=== PATIENT | male | born 1960 | race Caucasian/White ===

== ENCOUNTER 2016-05-12 14:42 | Emergency (ER) | payer MEDICARE, MEDICAID ==
[~2016-05-12] VITALS: Ht 147.3 cm; Wt 59.0 kg
[~2016-05-12 14:42] MED LIST: /ALEN7SOL OR; ASPI81TA45 OR; ASPI81TA85 PO; ATARAX OR; CALC600T57 PO; CALCCHW12 OR; CLAR10CA3 PO; CLAR5CHW OR; DILA100C OR; DILA100C PO; DITR5TAB PO; FORT600S SC; HYDR25T PO; KEPP1TAB2 PO; KEPPRA PO; MULTCAP12 PO; MULTIVIT PO; OXYB5TAB4 OR; PHEN30TA2 OR; PHEN32.4 PO; PHEN50CH PO; SENN8.6T63 PO; SENO8.6T5 OR; VITA200016 PO
[2016-05-12] MEDS ORDERED: OMEP40CA2 PO (15:10)
[2016-05-12] MEDS ORDERED: TRIA1CR TOP (15:10)
[2016-05-12 16:32] LABS: BASO % 0.3 % (0.0-1.0); EOS # 0.1 K/mm3 (0.0-0.50); EOS % 1.4 % (0.0-3.0); LARGE UNSTAINED CELL # 0.2 K/mm3 (0.0-0.4); LARGE UNSTAINED CELL % 2.7 % (0.0-4.0); LYMPH # 1.8 K/mm3 (1.5-4.5); LYMPH % 24.5 % (24.0-44.0); MEAN CORPUSCULAR HEMOGLOBIN 30.2 pg (27.0-33.0); MEAN CORPUSCULAR HGB CONC 33.5 g/dl (32.0-36.5); MONO # 0.8 K/mm3 (0.0-0.8); MONO % 10.3 % (0.0-5.0); NEUTROPHILS # 4.4 K/mm3 (1.8-7.7); NEUTROPHILS % 60.8 % (36.0-66.0); PLATELET COUNT, AUTOMATED 217 k/mm3 (150-450); RED CELL DISTRIBUTION WIDTH 12.7 % (11.5-14.5); WHITE BLOOD COUNT 7.3 K/mm3 (4.0-10.0)
[2016-05-12 16:52] LABS: ANION GAP 6 MEQ/L (8-16); BLOOD UREA NITROGEN 15 MG/DL (7-18); CALCIUM LEVEL 8.3 MG/DL (8.5-10.1); CARBON DIOXIDE LEVEL 30 MEQ/L (21-32); CHLORIDE LEVEL 103 MEQ/L (98-107); CREATININE FOR GFR 0.63 MG/DL (0.70-1.30); GLOMERULAR FILTRATION RATE > 60.0 (>56); GLUCOSE, FASTING 92 MG/DL (70-105); PHENOBARBITAL LEVEL 25.9 UG/ML (15.0-40.0); POTASSIUM SERUM 4.2 MEQ/L (3.5-5.1); SODIUM LEVEL 139 MEQ/L (136-145)
[2016-05-12] MEDS ORDERED: DILA100C PO (17:31)
[2016-05-12 18:06] VITALS: BP 183/87
== END 2016-05-12 18:09 | disposition home or self-care (01) ==
LOC: M ED 16:33
DX: R13.10 Dysphagia, unspecified (principal); F72 Severe intellectual disabilities; F80.9 Developmental disorder of speech and language, unspecified; R56.9 Unspecified convulsions; G80.9 Cerebral palsy, unspecified; Z79.82 Long term (current) use of aspirin; Z79.899 Other long term (current) drug therapy

== ENCOUNTER → 2016-05-22 | Outpatient (REF) | payer MEDICARE, MEDICAID ==
[~2016-05-22] MED LIST changes: +OMEP40CA2 PO; +TRIA1CR TOP
== END ==
LOC: M LABDRAW1 14:41
PROVIDERS: ATTEND Physician Assistant Medical
DX: G43.909 Migraine, unspecified, not intractable, without status migrainosus (principal)

== ENCOUNTER → 2016-05-22 | Outpatient (REF) | payer MEDICARE, MEDICAID ==
[2016-05-22 12:34] LABS: ALBUMIN 3.9 GM/DL (3.2-5.2); ALBUMIN/GLOBULIN RATIO 1.08 (1.00-1.93); ALKALINE PHOSPHATASE 132 U/L (45-117); ALT/SGPT 29 U/L (12-78); ANION GAP 6 MEQ/L (8-16); AST/SGOT 17 U/L (15-37); BILIRUBIN,TOTAL 0.2 MG/DL (0.2-1.0); BLOOD UREA NITROGEN 15 MG/DL (7-18); CALCIUM LEVEL 8.4 MG/DL (8.5-10.1); CARBON DIOXIDE LEVEL 30 MEQ/L (21-32); CHLORIDE LEVEL 103 MEQ/L (98-107); CREATININE FOR GFR 0.72 MG/DL (0.70-1.30); GLOMERULAR FILTRATION RATE > 60.0 (>56); GLUCOSE, FASTING 84 MG/DL (70-105); PHENOBARBITAL LEVEL 24.6 UG/ML (15.0-40.0); POTASSIUM SERUM 4.3 MEQ/L (3.5-5.1); SODIUM LEVEL 139 MEQ/L (136-145); TOTAL PROTEIN 7.5 GM/DL (6.4-8.2)
== END ==
LOC: M LABDRAW1 11:29
PROVIDERS: ATTEND Family Medicine
DX: E55.9 Vitamin D deficiency, unspecified (principal); K21.9 Gastro-esophageal reflux disease without esophagitis; G40.909 Epilepsy, unspecified, not intractable, without status epilepticus

== ENCOUNTER 2016-05-28 12:21 | Emergency (ER) | payer MEDICARE, MEDICAID ==
[~2016-05-28] VITALS: Ht 147.3 cm; Wt 62.1 kg
[2016-05-28 15:25] LABS: BASO % 0.3 % (0.0-1.0); EOS # 0.1 K/mm3 (0.0-0.50); LARGE UNSTAINED CELL # 0.2 K/mm3 (0.0-0.4); LARGE UNSTAINED CELL % 2.5 % (0.0-4.0); LYMPH % 26.8 % (24.0-44.0); MEAN CORPUSCULAR HEMOGLOBIN 30.5 pg (27.0-33.0); MEAN CORPUSCULAR HGB CONC 34.3 g/dl (32.0-36.5); MONO # 0.7 K/mm3 (0.0-0.8); MONO % 10.6 % (0.0-5.0); NEUTROPHILS % 57.8 % (36.0-66.0); PLATELET COUNT, AUTOMATED 253 k/mm3 (150-450); RED CELL DISTRIBUTION WIDTH 12.5 % (11.5-14.5); WHITE BLOOD COUNT 6.8 K/mm3 (4.0-10.0)
[2016-05-28 15:30] LABS: INR 1.07
[2016-05-28 15:55] LABS: ANION GAP 9 MEQ/L (8-16); BLOOD UREA NITROGEN 12 MG/DL (7-18); CALCIUM LEVEL 8.6 MG/DL (8.5-10.1); CARBON DIOXIDE LEVEL 28 MEQ/L (21-32); CHLORIDE LEVEL 101 MEQ/L (98-107); CREATININE FOR GFR 0.65 MG/DL (0.70-1.30); GLOMERULAR FILTRATION RATE > 60.0 (>56); GLUCOSE, FASTING 93 MG/DL (70-105); POTASSIUM SERUM 4.1 MEQ/L (3.5-5.1); SODIUM LEVEL 138 MEQ/L (136-145)
[2016-05-28] MEDS ORDERED: VIMP50TA3 PO (16:52)
[2016-05-28 17:02] VITALS: BP 147/97
--- NOTE | 2016-05-29 12:31 | ECGEPIP ---
Stationary ECG Study [facility] - ED Test Date: 2016-05-28 Pat Name: NKECHI OSPINA Department: Room: - Gender: M Regulatory Administrator: jazmyn : 1960 Requested By: Naren Padgett PA-C Order Number: [id number] Reading MD: Ester Chou Measurements Intervals [place] Rate: 72 P: 52 IN: 153 QRS: 33 QRSD: 84 T: 41 QT: 367 QTc: 404 Interpretive Statements SINUS RHYTHM DECREASED RATE 09/21/13 Electronically Signed On 05-29-2016 12:31:04 EDT by Ester Chou
--- NOTE | 2016-05-29 15:01 | REP ---
CT study of the brain without contrast: History: CVA. No comparison brain imaging. CT findings: The bony calvarium is diffusely somewhat thickened but intact. Visualized paranasal sinuses are clear. No intraorbital abnormality is seen. The occipital horns of the lateral ventricles are markedly dilated. 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 There is marked thinning of the occipital lobe brain parenchyma. There are several foci of well-demarcated encephalomalacia in the basal ganglia bilaterally, consistent with multiple basal ganglia infarcts. These involve the caudate lobes bilaterally and a lentate nuclei bilaterally. There is no evidence of intracranial hemorrhage. There is extensive small vessel atherosclerotic change in the periventricular white matter of the frontal lobes bilaterally. Impression: 1. Evidence of multiple lacunar infarcts in the basal ganglia bilaterally. At least four separate lacunar infarcts are visible. 2. Extensive periventricular white matter hypodensity in the frontal lobes bilaterally, consistent with small vessel changes. 3. Markedly dilated occipital horns of the lateral ventricles bilaterally with partial absence of the corpus callosum suspected and marked cortical thinning of the occipital and parietal lobe cortex bilaterally. This could be the result of ischemia and/or malformation. 4. There is no evidence of intracranial hemorrhage or definite acute infarction. Signed by Karel Glynn MD 05/29/2016 03:44 P
== END 2016-05-28 17:15 | disposition home or self-care (01) ==
LOC: M ED 13:32
DX: T42.75XA Adverse effect of unspecified antiepileptic and sedative-hypnotic drugs, initial encounter (principal); Y92.9 Unspecified place or not applicable; Y93.9 Activity, unspecified; F79 Unspecified intellectual disabilities; G40.909 Epilepsy, unspecified, not intractable, without status epilepticus; G80.9 Cerebral palsy, unspecified; K21.9 Gastro-esophageal reflux disease without esophagitis; M19.90 Unspecified osteoarthritis, unspecified site; H54.8 Legal blindness, as defined in USA; Z79.82 Long term (current) use of aspirin; Z79.899 Other long term (current) drug therapy

== ENCOUNTER → 2016-06-20 | Outpatient (CLI) | payer MEDICARE, MEDICAID ==
[~2016-06-20] MED LIST changes: +VIMP50TA3 PO
--- NOTE | 2016-06-23 09:28 | DEXA ---
AP SPINE L1 - L4 1.155 -0.7 0.1 LT FEMUR TOTAL 0.707 -2.7 -2.0 RT FEMUR TOTAL 0.807 -2.0 -1.3 TOTAL BODY TOTAL OTHER DUAL FEMUR FRAX* ASSESSMENT Risk factors: History of fracture (adult.) Secondary osteoporosis. 10 year probability of fracture Major osteoporotic fracture 11.6 % Hip fracture 2.6 % COMMENTS: Normal bone densitometry of the spine. There is low bone density of the hips. The increased density of the spine does represent a significant change. The increased density of the left hip does represent a significant change. The decreased density of the right hip does represent a significant change. The density of the spine has increased 11.0% since the initial exam on 2010. The spine density has increased 12.2% since the most recent exam on 04/28/2014. The density of the left hip has increased 0.6% since the initial exam on 2010. The density of the left hip has increased 4.4% since the most recent exam on . The density of the right hip has increased 9.9% since the initial exam on 2010. The density of the right hip has decreased 4.6% since the most recent exam on . FOLLOW-UP: Recommendation for the next bone density exam: 2 years. JEANIE
== END ==
LOC: M WHC 11:18
PROVIDERS: ATTEND Family Medicine
DX: M81.0 Age-related osteoporosis without current pathological fracture (principal); M85.851 Other specified disorders of bone density and structure, right thigh; M85.852 Other specified disorders of bone density and structure, left thigh

== ENCOUNTER 2016-07-02 09:17 | Outpatient (CLI) | payer MEDICARE, MEDICAID ==
[~2016-07-02 09:17] MED LIST changes: +ZOLEDRONIC ACID 5 MG in APPROPRIATE DILUENT 1 EA IV ONE
[2016-07-02] MEDS ORDERED: DILA100C PO (11:33)
[2016-07-02] MEDS ORDERED: RECL5INJ2 IV (11:33)
== END 2016-07-02 10:10 | disposition home or self-care (01) ==
LOC: M INFU 09:17
PROVIDERS: ATTEND Family Medicine
DX: M81.0 Age-related osteoporosis without current pathological fracture (principal); Z79.82 Long term (current) use of aspirin; Z79.899 Other long term (current) drug therapy
CPT/HCPCS: 96365; J3489

== ENCOUNTER → 2016-07-16 | Outpatient (REF) | payer MEDICARE, MEDICAID ==
[~2016-07-16] MED LIST changes: +RECL5INJ2 IV; -ZOLEDRONIC ACID 5 MG in APPROPRIATE DILUENT 1 EA IV ONE
== END ==
LOC: M LABDRAW1 11:11
PROVIDERS: ATTEND Physician Assistant Medical
DX: R56.9 Unspecified convulsions (principal)

== ENCOUNTER → 2016-09-25 | Outpatient (REF) | payer MEDICARE, MEDICAID ==
[~2016-09-25] MED LIST changes: +AMLO5TAB2 PO; +AMOX875T PO; +CALC1TAB74 PO; +CALC600T7 PO; +CHLO25TA PO; +DOXY100T2 PO; +HYDR-3363 PO; -HYDR25T PO; +PERI0.126 SSP; -PHEN32.4 PO; +PHEN32.44 PO; +VITA500055 PO; +VITMTA PO
[2016-09-25 13:36] LABS: INR 0.99
[2016-09-25 14:01] LABS: ALBUMIN 3.9 GM/DL (3.2-5.2); ALBUMIN/GLOBULIN RATIO 1.08 (1.00-1.93); ALKALINE PHOSPHATASE 113 U/L (45-117); ALT/SGPT 24 U/L (12-78); ANION GAP 11 MEQ/L (8-16); AST/SGOT 12 U/L (15-37); BILIRUBIN,TOTAL 0.3 MG/DL (0.2-1.0); BLOOD UREA NITROGEN 14 MG/DL (7-18); CALCIUM LEVEL 8.9 MG/DL (8.5-10.1); CARBON DIOXIDE LEVEL 26 MEQ/L (21-32); CHLORIDE LEVEL 101 MEQ/L (98-107); CREATININE FOR GFR 0.56 MG/DL (0.70-1.30); GLOMERULAR FILTRATION RATE > 60.0 (>56); GLUCOSE, FASTING 74 MG/DL (70-105); PHENOBARBITAL LEVEL 26.2 UG/ML (15.0-40.0); POTASSIUM SERUM 4.5 MEQ/L (3.5-5.1); SODIUM LEVEL 138 MEQ/L (136-145); TOTAL PROTEIN 7.5 GM/DL (6.4-8.2)
== END ==
LOC: M SFHCPLAZ 11:27
PROVIDERS: ATTEND Family Medicine
DX: Z01.818 Encounter for other preprocedural examination (principal); G40.909 Epilepsy, unspecified, not intractable, without status epilepticus; Z12.5 Encounter for screening for malignant neoplasm of prostate; Z79.899 Other long term (current) drug therapy
CPT/HCPCS: 36415; 80053; 80184; 80185; 85610; 85730; G0103; G0463

== ENCOUNTER 2016-10-08 05:54 | Day surgery (SDC) | payer MEDICARE, MEDICAID ==
[~2016-10-08] VITALS: Ht 149.9 cm; Wt 68.0 kg
[~2016-10-08 05:54] MED LIST changes: -AMLO5TAB2 PO; -AMOX875T PO; -CALC1TAB74 PO; -CHLO25TA PO; -DOXY100T2 PO; -PERI0.126 SSP; -VITMTA PO
[2016-10-08] MEDS ORDERED: LR 1,000 ML IV ONE (06:00)
[2016-10-08] MEDS ORDERED: LIDOCAINE 1% MDV 20ML VIAL SC ONE (06:00)
[2016-10-08] MEDS ORDERED: LIDOCAINE 2% INJ 100 MG/5 ML SDV (FOR ANES.) As Ordered ONE (07:01)
[2016-10-08] MEDS ORDERED: MIDAZOLAM INJ 2 MG/2 ML VIAL (J2250) As Ordered ONE (07:01)
[2016-10-08] MEDS ORDERED: ROCURONIUM BROMIDE 50 MG/5 ML VIAL/SYRINGE As Ordered ONE ×2 (07:01→13:17)
[2016-10-08] MEDS ORDERED: PROPOFOL 200 MG/20 ML VIAL As Ordered ONE (07:01)
[2016-10-08] MEDS ORDERED: fentaNYL 100 MCG/2 ML INJECTION (J3010) As Ordered ONE ×2 (07:02→09:00)
[2016-10-08] MEDS ORDERED: fentaNYL 100 MCG/2 ML INJECTION (J3010) IV PRN (09:45)
[2016-10-08] MEDS ORDERED: LR 1,000 ML IV SCH (09:45)
[2016-10-08] MEDS ORDERED: METOCLOPRAMIDE INJ 10MG/2ML VIAL (J2765) IV PRN (09:45)
[2016-10-08] MEDS ORDERED: ONDANSETRON 4MG/2ML VIAL (J2405) IV PRN (09:45)
[2016-10-08 10:40] VITALS: BP 187/98
[2016-10-08] MEDS ORDERED: HYDROmorphone HCL 2 MG/ML 1ML VIAL (J1170) As Ordered ONE (14:00)
--- NOTE | 2016-10-10 18:24 | RO ---
DATE OF PROCEDURE: 10/08/2016 PREPROCEDURE DIAGNOSIS: Dental caries POSTPROCEDURE DIAGNOSIS: Dental caries. PROCEDURE: exam, full mouth radiographs, scaling and root planing; fillings, fluoride application SURGEON: Óscar Chen DDS CRYSTAL GAZER: none ANESTHESIA: General DESCRIPTION OF PROCEDURE: The patient, Cade Mondragon was brought to the operating room and placed onto the operative table in the supine position. After all monitoring equipment was attached to patient, vital signs were checked and general anesthetic medicaments were delivered via inhalation. Nasal intubation proceeded and tube extension was secured into position after breathing was monitored. The patient was then prepped and draped for dental procedures. The intraoral cavity was inspected and suctioned free of gross secretions. One moist throat pack was placed. Mouth prop placed. One full mouth radiographs taken. Comprehensive examination completed. Probing depths charted. Scaling and root planing of four quadrants completed. Decay removal followed by composite condensation was completed on the mesial surface of tooth #3, the occlusal surface of teeth #12, 13, 15, 28, 29 and 31. Raised lesion 3 mm x 3 mm x 2 mm was present on the buccal gingiva of edentulous area #5 with exudate present. Radiograph taken. Exudate removed. Concavity curettaged and irrigated with sterile water and curette. Fluoride varnish application completed on entire dentition. Final removal of all gross fluids from intraoral and extraoral structures. Bite block removed. The patient then left by dental team in the care of presiding anesthesiologist. Note: There was continuous removal of all gross fluids throughout the duration of all performed dental procedures. Prescription for antibiotics called in to patient's pharmacy in [place]. [facility]
== END 2016-10-08 11:28 | disposition home or self-care (01) ==
LOC: M SDC 05:54
PROVIDERS: ATTEND Dentist General Practice
DX: K02.9 Dental caries, unspecified (principal); G40.909 Epilepsy, unspecified, not intractable, without status epilepticus; G80.9 Cerebral palsy, unspecified; M94.9 Disorder of cartilage, unspecified; F73 Profound intellectual disabilities; K21.9 Gastro-esophageal reflux disease without esophagitis; Z79.82 Long term (current) use of aspirin; Z79.899 Other long term (current) drug therapy
CPT/HCPCS: 41899; 70310; J1170; J2250; J3010

== ENCOUNTER 2016-10-17 12:19 | Inpatient (IN) | payer MEDICARE, MEDICAID ==
[~2016-10-17] VITALS: Ht 147.3 cm; Wt 61.2 kg
[2016-10-17] MEDS ORDERED: NS 1,000 ML IV SCH (13:30)
[2016-10-17] MEDS ORDERED: PIPERACILLIN/TAZOBACTAM SOD 3.375 GM in D5W MINI-BAG PLUS 50 ML IV ONE (15:15)
[2016-10-17] MEDS ORDERED: VANCOMYCIN HCL 1,000 MG, VIAL MATE ADAPTER 1 EACH in D5W 250 ML IV ONE (15:15)
--- NOTE | 2016-10-17 15:31 | HPEPDOC ---
Medical History and Physical Date of Admission 10/17/16 History and Physical ATTENDING: Dr. Vences PCP: Dr Vences CC: seizure HPI: 55yoM with a past medical history significant for CP, profound MR, seizure disorder, poor dentition who underwent dental cleaning with anesthesia 10/10/16 and finished po antibiotics yesterday as per [facility] staff at bedside. This AM he was bathing when he became limp and eyes rolled back, he was lowered to the floor. No falls. He had one additional seizure. Both unknown how long episode lasted. Pt was brought to ED for evaluation. He had some chills this AM but otherwise had been in nml state of health. Appetite had been nml, no fevers, no cough/SOB, no weakness. Denies any NELSON, CP, SOB, cough, palpitations, abdominal pain, N/V/D or changes in bowel or bladder habits. Upon presentation to the hospital the patient was found to have RLL pneumonia and seizure, thus the hospitalist team was consulted. PMHx: CP/Profound MR. Resides with [facility]. Seizure disorder allergic rhinitis osteoporosis urge incontinence H/O H Pylori poor dentition. Recent cleaning with anesthesia. PSHX: colonoscopy. Reindl 2013. SOCHX: Resides in: [facility] residence Marital Status: single Tobacco use: non smoker ETOH: none Illicit Drugs: Denies Recent travel: none Advanced directives: none FAMHX: Mother: heart disease Father: heart disease Siblings: 2 Broterhs Alive, unknown Children: none ROS: Pt is not a reliable historian, history is taken from [facility] staff member. PE: GEN: 55yoM, appears older than stated age. Well-nourished, well developed. No acute distress. Alert and responds to questions. Not cooperative with exam. HEENT: Normocephalic, atraumatic. Pupils are equal, round, and reactive to light. Extraocular movements are intact. No nystagmus appreciated. Sclera are nonicteric. Conjunctiva without injection. Nose midline. Nasal turbinates without bogginess. EACs both patent BL. TMs both visualized and hernandez with good cone of light, no bulging or erythema. No facial asymmetry. Dry appearing mucous membranes, limited exam as pt will not open mouth. Dentition poor. Neck supple, trachea midline. No lymphadenopathy or thyromegaly appreciated. CHEST: Regular rate and rhythm, +S1, +S2 LUNGS: Limited exam as pt declining to take a breath and talking throughout, not following commands. Few rales noted bases- but limited exam. No wheezes, or rhonchi noted. Breathing appears symmetric and easy. No accessory muscle use. ABD: Round, soft, non-tender, non-distended. +Bowel sounds throughout. No rebound or guarding. No apparent costovertebral angle tenderness. EXT: Pulses 2+ bilaterally dorsalis pedis and radial. No lower extremity edema appreciated. SKIN: Noel, dry, warm. Capillary refill <2sec. No rashes. NEURO: No focal deficits appreciated. CXR: report pending CT head report pending. EKG: ST 112 bpm. BLOOD CULTURES: x 2 pending UC pending. A&P: 55yoM with a past medical history significant for CP, profound MR, seizure disorder, poor dentition who underwent dental cleaning with anesthesia and finished po antibiotics yesterday as per [facility] staff at bedside. This AM he was bathing when he became limp and eyes rolled back, he was lowered to the floor. No falls. He had one additional seizure. Both unknown how long episode lasted. Pt was brought to ED for evaluation. 1. The patient will be admitted to /S for at least [address] Vences's service. Pt is discussed with Dr Guerrero. 2. HCAP/RLL pneumonia. Continue IV Zosyn/Vanco. IVF at 100cc/hr. BC/UC/Resp panel/CRP pending 3. Recent dental procedure 10/10/16. Finished po abx yesterday. 4. Seizure disorder. Seizure precautions. Continue oupt regimen. Ativan Q2 hr prn seizure activity. Keppra level pending. 5. Profound MR/CP. Continue supportive care. [facility] staff at bedside. Pt consumes regular diet. 6. OAB. Cont oxybutinin. 7. GERD. PPI. 8. Chronic constipation. Cont bowel care. MED REC PENDING AT THIS TIME. DVT prophylaxis. The patient is a Full code. Vital Signs Vital Signs Date Time Temp Pulse Resp B/P (MAP) Pulse Ox O2 Delivery O2 Flow Rate FiO2 10/17/16 13:54 117/58 (77) 10/17/16 13:49 104 99 10/17/16 12:30 98.6 16 Room Air Laboratory Data Labs 24H Laboratory Tests 2 10/17/16 14:00: Urine Appearance HAZY, Urine Color STRAW, Urine pH 5.0, Urine Specific [place] 1.018, Urine Protein 1+H, Urine Glucose (UA) NEGATIVE, Urine Ketones NEGATIVE, Urine Urobilinogen 0.2, Urine Bilirubin NEGATIVE, Urine Leukocyte Esterase NEGATIVE, Urine Blood NEGATIVE, Urine Nitrite NEGATIVE, Urine WBC (Auto) 5H, Urine RBC (Auto) 3, Urine Hyaline Casts (Auto) 13, Urine Bacteria (Auto) 1+H, Urine Squamous Epithelial Cells 0, Urine Mucus (Auto) SMALL, Urine Sperm (Auto) 10/17/16 14:44: 10/17/16 14:46: Microbiology Microbiology 10/17/16 Blood Culture, Received Pending 10/17/16 Blood Culture, Received Pending 10/17/16 Urine Culture, Received Pending Home Medications Scheduled Aspirin (Aspir-81) 81 Mg Tab, 81 MG PO DAILY Calcium/Vitamin D (Calcium/Vitamin D 600-400 mg-Unit) 1 Tab Tab, 1 TAB PO BID Chlorhexidine Gluconate (Peridex) 0.12 % Anjana, 15 ML SSP BID Cholecalciferol (Vitamin D3) 5,000 Unit Tab, 5,000 UNIT PO DAILY Levetiracetam (Keppra) 750 Mg Tab, 750 MG PO BID Loratadine (Claritin) 10 Mg Cap, 10 MG PO DAILY Multivitamins *[facility] STOCKED* (Thera M Plus *[facility] STOCKED*) 1 Tab Tab, 1 TAB PO DAILY Omeprazole (Omeprazole) 40 Mg Cap, 40 MG PO DAILY Oxybutynin Chloride (Ditropan Xl) 5 Mg Tab, 5 MG PO DAILY Phenobarbital (Phenobarbital) 32.4 Mg Tab, 32.4 MG PO TID Phenytoin Sodium (Dilantin) 100 Mg Cap, 100 MG PO BID Senna (Sennosides) 8.6 Mg Tab, 1 TAB PO QHS Zoledronic Acid (Reclast) 5 Mg/100 Ml Inj, 5 MG IV ASDIRECTED once yearly Scheduled PRN Triamcinolone Acet (Triamcinolone Acetonide 0.1% Crm) 1 Dose/15 Gm Cr, 1 DOSE TOP BID PRN for ECZEMA FLARE APPLIED TO FEET Allergies Coded Allergies: No Known Drug Allergy (Verified Allergy, Unknown, 09/26/16) GME ATTESTATION GME ATTESTATION My preceptor for this patient encounter was physically present in the building during the encounter and was fully available. As needed, all aspects of the patient interview, examination, medical decision making process, and medical care plan development were reviewed and approved by the preceptor. Preceptor is aware and concurs with the plan as stated in the body of this note and will attest to such by his/her cosignature. ATTENDING NOTE I have both independently examined this patient as well as reviewed the H&P. I have discussed in detail with Adelita the findings and plan of treatment as documented in the note. I will continue to follow the patient and offer further guidance to the patients care as necessary during this hospital stay. Adelita Kenney MD Oct 17, 2016 15:30 AMARILIS GUERRERO MD Oct 18, 2016 11:42
[2016-10-17 15:35] LABS: ADD MANUAL DIFFER YES; DIFF SLIDE NUMBER 236; MEAN CORPUSCULAR HEMOGLOBIN 30.4 pg (27.0-33.0); MEAN CORPUSCULAR HGB CONC 34.3 g/dl (32.0-36.5); MEAN CORPUSCULAR VOLUME 88.9 fl (80.0-96.0); PLATELET COUNT, AUTOMATED 303 k/mm3 (150-450); RED CELL DISTRIBUTION WIDTH 12.3 % (11.5-14.5)
[2016-10-17 15:37] LABS: WHITE BLOOD COUNT 31.5 K/mm3 (4.0-10.0)
[2016-10-17 15:42] LABS: ALBUMIN 3.6 GM/DL (3.2-5.2); ALBUMIN/GLOBULIN RATIO 1.03 (1.00-1.93); ALKALINE PHOSPHATASE 112 U/L (45-117); ALT/SGPT 29 U/L (12-78); ANION GAP 9 MEQ/L (8-16); AST/SGOT 22 U/L (15-37); BILIRUBIN,DIRECT 0.1 MG/DL (0.0-0.2); BILIRUBIN,TOTAL 0.4 MG/DL (0.2-1.0); BLOOD UREA NITROGEN 13 MG/DL (7-18); CALCIUM LEVEL 8.5 MG/DL (8.5-10.1); CARBON DIOXIDE LEVEL 28 MEQ/L (21-32); CHLORIDE LEVEL 102 MEQ/L (98-107); CREATININE FOR GFR 0.97 MG/DL (0.70-1.30); GLOMERULAR FILTRATION RATE > 60.0 (>56); GLUCOSE, FASTING 100 MG/DL (70-105); MAGNESIUM LEVEL 1.8 MG/DL (1.8-2.4); PHENOBARBITAL LEVEL 25.9 UG/ML (15.0-40.0); PHOSPHORUS LEVEL 1.9 MG/DL (2.5-4.9); POTASSIUM SERUM 3.9 MEQ/L (3.5-5.1); SODIUM LEVEL 139 MEQ/L (136-145); TOTAL PROTEIN 7.1 GM/DL (6.4-8.2)
[2016-10-17] MEDS ORDERED: LORazepam 2 MG/ML VIAL (J2060) IV PRN (16:00)
[2016-10-17] MEDS: NS 1,000 ML IV SCH (16:15)
[2016-10-17 16:20] LABS: BANDS 5 % (< 11)
[2016-10-17] MEDS ORDERED: CALC1TAB74 PO (16:24)
[2016-10-17] MEDS ORDERED: PERI0.126 SSP (16:24)
[2016-10-17] MEDS ORDERED: VITMTA PO (16:24)
[2016-10-17 16:26] LABS: TOXIC VACUOLATION 1+
[2016-10-17] MEDS ORDERED: ZOLEDRONIC ACID 5 MG 100ML IVBAG (RECLAST)(J3489 PER 1MG) IV SCH (18:15)
[2016-10-17] MEDS ORDERED: TRIAMCINOLONE ACET 0.1% CREAM 15 GM TOP PRN (18:15)
--- NOTE | 2016-10-17 18:18 | REP ---
Chest x-ray: Two views. History: Two seizures. Chills. Comparison chest x-ray: September 21, 2013. Findings: A complex scoliotic curve is seen in the thoracic spine as before. There are air bronchograms and there is increased density in the right lower lobe consistent with right lower lobe pneumonia. Remaining lung diaz are clear. Pleural angles are sharp. No bony abnormality is seen. Impression: Right lower lobe infiltrate consistent with pneumonia. Signed by Karel Glynn MD 10/21/2016 08:17 A
--- NOTE | 2016-10-17 18:21 | REP ---
LEAF CONDITIONER HEAD WITHOUT CONTRAST: HISTORY: Seizure. COMPARISON: 05/28/2016. Areas of decreased attenuation are present in the basal ganglia. These represent old lacunar infarctions. There is encephalomalacia of the occipital lobes and posterior temporal and parietal lobes. There appears to be absence the splenium of the corpus callosum. Confluent areas of decreased attentuation are present in the periventricular and subcortical white matter. There is no intraparenchymal hemorrhage, mass or midline shift. There is no hydrocephalus or extracerebral collection. The calvarium is microcephalic. The visualized sinuses are clear. IMPRESSION: 1. Old bilateral basal ganglia lacunar infarctions. 2. Bilateral occipital and posterior temporal and parietal lobe encephalomalacia. Signed by Fernando Herrera MD 10/21/2016 08:13 A
[2016-10-17] MEDS ORDERED: MIRALAX *UNIT DOSE* 17GM PACKET PO PRN (18:30)
[2016-10-17] MEDS ORDERED: ONDANSETRON 4MG/2ML VIAL (J2405) IV PRN (18:30)
[2016-10-17] MEDS ORDERED: ACETAMINOPHEN TAB 650MG DOSE (2X325MG) PO PRN (18:30)
[2016-10-17 19:00] LABS: MEAN CORPUSCULAR HGB CONC 33.8 g/dl (32.0-36.5); MEAN CORPUSCULAR VOLUME 88.9 fl (80.0-96.0); PLATELET COUNT, AUTOMATED 297 k/mm3 (150-450); RED CELL DISTRIBUTION WIDTH 12.6 % (11.5-14.5)
[2016-10-17 19:03] LABS: WHITE BLOOD COUNT 37.7 K/mm3 (4.0-10.0)
--- NOTE | 2016-10-17 19:36 | PHACANCOPD ---
PHARMACY VANCOMYCIN DOSING Pt Demographics Demographics Patient Age:55 , Weight:62.000 , Gender: male Adjusted Body Weight Date: 10/17/16, Adjusted Body Weight: [NA] Kg Events Past 24 Hours Events Past 24 Hours: YES: Elevation in WBC, NO: Dialysis, Diuretic Therapy, Change in CrCl, Fever, Pending Diagnostics, Pending Procedures, Other Vancomycin Vancomycin indication: HCAP Vancomycin Target Ranges: 15-20 mcg/ml Vancomycin Load Y/N: Yes Load Dose Date Time Vancomycin Load Dose: 1000mg Date: 10/17 Time: 16:23 Vancomycin Dose Date: 10/17/16. Current Vancomycin Dose: [1g IV Q12H @20] Intermittent Dosing?: No Labs Labs Item Value Date Time White Blood Count 31.5 K/mm3 *H 10/17/16 1446 Band Neutrophils 5 % 10/17/16 1446 Creatinine 0.97 MG/DL 10/17/16 1446 Micro Microbiology 10/17/16 Blood Culture, Received Pending 10/17/16 Blood Culture, Received Pending 10/17/16 Urine Culture, Received Pending Creatinine Clearance Date:10/17/16. Creatinine Clearance: [57 ml/min]. Assessment and Plan Maintaining Current Dose?: Yes Reason for dose change: No Dose Change Pharmacist Note Pharmacist Note Date: 10/17/16. Pharmacist note: pt is a [facility] resident with profound MR admitted for seizure/RLL pneumonia s/p dental cleaning w/anesthesia on 10/10. Pt just completed a 7 day course of Amoxicillin 875mg q12h yesterday. He has not been on vancomycin at our facility in the past and does not have an apparent Hx of MRSA. He received 1g in the ER this afternoon and I will start him on 1g IV q12h tonight @20:00. I will monitor the pt over the weekend and order a trough as necessary. Richie Sagastume Pharm.D. Oct 17, 2016 19:36
[2016-10-17 20:30] VITALS: BP 132/88
[2016-10-17 20:54] LABS: REASON FOR REVIEW COMPREHENSIVE REVIEW
[2016-10-17] MEDS: VANCOMYCIN HCL 1,000 MG, VIAL MATE ADAPTER 1 EACH in D5W 250 ML IV SCH (21:06)
[2016-10-17] MEDS: CHLORHEXIDINE GLUCONATE 0.12 % 15ML UDC (PERIDEX ORAL RINSE) SSP SCH (21:31)
[2016-10-17] MEDS: PHENYTOIN ER 100 MG CAP PO SCH (21:32)
[2016-10-17] MEDS: PHENobarbital 30 MG TAB PO SCH (21:32)
[2016-10-17] MEDS: SENOKOT S TAB PO SCH (21:32)
[2016-10-17] MEDS: SENNA 8.6 MG TAB (SENOKOT) PO SCH (21:32)
[2016-10-17] MEDS: levETIRAcetam 250MG TABLET (KEPPRA) PO SCH (21:32)
[2016-10-17] MEDS: PIPERACILLIN/TAZOBACTAM SOD 3.375 GM in D5W MINI-BAG PLUS 50 ML IV SCH (22:12)
[2016-10-17 23:59] VITALS: BP 143/81
[2016-10-18] VITALS (8 sets, daily range): BP systolic 120–180; BP diastolic 74–106
[2016-10-18] MEDS: NS 1,000 ML IV SCH ×3 (00:04→15:23)
[2016-10-18] MEDS: PIPERACILLIN/TAZOBACTAM SOD 3.375 GM in D5W MINI-BAG PLUS 50 ML IV SCH ×4 (02:35→21:25)
[2016-10-18 05:32] LABS: MEAN CORPUSCULAR HEMOGLOBIN 29.9 pg (27.0-33.0); MEAN CORPUSCULAR HGB CONC 33.9 g/dl (32.0-36.5); MEAN CORPUSCULAR VOLUME 88.1 fl (80.0-96.0); RED CELL DISTRIBUTION WIDTH 12.7 % (11.5-14.5)
[2016-10-18 05:34] LABS: WHITE BLOOD COUNT 30.6 K/mm3 (4.0-10.0)
[2016-10-18 05:57] LABS: CREATININE FOR GFR 1.53 MG/DL (0.70-1.30); GLOMERULAR FILTRATION RATE 50.9 (>56)
[2016-10-18] MEDS: VANCOMYCIN HCL 1,000 MG, VIAL MATE ADAPTER 1 EACH in D5W 250 ML IV SCH ×2 (08:09→22:29)
[2016-10-18] MEDS: CHLORHEXIDINE GLUCONATE 0.12 % 15ML UDC (PERIDEX ORAL RINSE) SSP SCH ×2 (09:45→21:37)
[2016-10-18] MEDS: ASPIRIN 81 MG ENTERIC TAB PO SCH (09:46)
[2016-10-18] MEDS: SENOKOT S TAB PO SCH ×2 (09:46→21:36)
[2016-10-18] MEDS: OMEPRAZOLE 20 MG CAP PO SCH (09:46)
[2016-10-18] MEDS: PHENYTOIN ER 100 MG CAP PO SCH ×2 (09:46→21:36)
[2016-10-18] MEDS: PHENobarbital 30 MG TAB PO SCH ×3 (09:46→21:37)
[2016-10-18] MEDS: LORATADINE 10 MG TAB PO SCH (09:47)
[2016-10-18] MEDS: ENOXAPARIN 40 MG/0.4 ML SYRINGE (J1650) SC SCH (09:47)
[2016-10-18] MEDS: oxyBUTYnin *DITROPAN XL* 5 MG TABCR PO SCH (09:47)
[2016-10-18] MEDS: levETIRAcetam 250MG TABLET (KEPPRA) PO SCH ×2 (09:47→21:37)
[2016-10-18] MEDS: MULTIVITAMINS/MINERALS THERAP 1 TAB PO SCH (09:47)
--- NOTE | 2016-10-18 19:12 | ECGEPIP ---
Stationary ECG Study [facility] - ED Test Date: 2016-10-17 Pat Name: NKECHI OSPINA Department: Room: - Gender: M [employer] Internship: rn : 1960 Requested By: SHAMIR Lopez Order Number: [id number] Reading MD: Destiny Roland Measurements Intervals [place] Rate: 112 P: 58 SD: 136 QRS: 56 QRSD: 84 T: 46 QT: 315 QTc: 431 Interpretive Statements SINUS TACHYCARDIA POSSIBLE LEFT ATRIAL ENLARGEMENT ABNORMAL RHYTHM ECG DELAYED R WAVE PROGRESSION NONSPECIFIC ST T WAVE FINDINGS 05/28/16 RATE INCREASED Electronically Signed On 10-18-2016 19:12:13 EDT by Destiny Roland
--- NOTE | 2016-10-18 19:53 | PHACANCOPD ---
PHARMACY VANCOMYCIN DOSING Pt Demographics Demographics Patient Age:55 , Weight:62.500 , Gender: male Adjusted Body Weight Date: 10/17/16, Adjusted Body Weight: [NA] Kg Events Past 24 Hours Events Past 24 Hours: NO: Dialysis, Diuretic Therapy, Change in CrCl, Fever, Elevation in WBC, Pending Diagnostics, Pending Procedures, Other Vancomycin Vancomycin indication: HCAP Vancomycin Target Ranges: 15-20 mcg/ml Vancomycin Load Y/N: Yes Load Dose Date Time Vancomycin Load Dose: 1000mg Date: 10/17 Time: 16:23 Vancomycin Dose Date: 10/18/16. Current Vancomycin Dose: [1g IV Q18H] Intermittent Dosing?: No Labs Labs Item Value Date Time White Blood Count 30.6 K/mm3 *H 10/18/16 0446 Creatinine 1.53 MG/DL H # 10/18/16 0446 Vancomycin Level Trough 24.3 UG/ML H 10/18/16 1900 Vital Signs Label Value Date Time Patient Temperature 98.6 degrees F 10/18/16 1600 Temperature Source Temporal 10/18/16 1600 Micro Microbiology 10/17/16 Blood Culture, Received Pending 10/17/16 Blood Culture, Received Pending 10/18/16 Gastrointestinal Tract Panel (PCR) - Final, Complete 10/18/16 Respiratory Virus Panel (PCR) ([facility]) - Final, Complete 10/17/16 Urine Culture, Received Pending Creatinine Clearance Date:10/17/16. Creatinine Clearance: [36 ml/min]. Pending Labs Trough 09-03 @1500 Assessment and Plan Maintaining Current Dose?: No Reason for dose change: Trough too high Pharmacist Note Pharmacist Note Date: 10/17/16. Pharmacist note: Trough of 24.3 is above target range. Dose reduced to 1000mg q18h. Trough ordered for 09-03 @1500. Will continue to monitor and make adjustments as needed. RAHUL PHILIP PHARMACY Oct 18, 2016 19:53
--- NOTE | 2016-10-18 20:10 | IPNPDOC ---
Subjective Date Seen The patient was seen on 10/18/16. Subjective Chief Complaint/HPI The patient is a 55-year-old male admitted with a reason for visit of Seizure, Pneumonia. Events since last encounter Cade has been doing well since admission per nursing and his [facility] staff members who are ad bedside. He has not had another seizure. (He is non-verbal so the entire history is gathered from reviewing notes from the ER physician as well as the staff around him.) General: Reports: ROS Unobtainable Objective Physical Examination General Exam: Positive: Alert, Cooperative, No Acute Distress, Other ( dysmorphic facies with clinically obv) Eye Exam: Positive: Conjunctiva & lids normal, Negative: Sclera icteric ENT Exam: Positive: Mucous membr. moist/pink Neck Exam: Negative: Lymphadenopathy Chest Exam: Positive: Normal air movement, Rales (noted in the R posterior lower lobe to about [address] up the back. He also has some fine crackles at the L base, but these may be atalectasis.), Negative: Wheezing Heart Exam: Positive: Rate Normal, Normal S1, Normal S2, Negative: Murmurs Abdomen Exam: Positive: Normal bowel sounds, Soft, Negative: Tenderness Extremity Exam: Negative: Edema Neuro Exam: Negative: Normal Speech (non-verbal) Psych Exam: Positive: Mood NL, Negative: Mental status NL, Memory Intact, Oriented x 3 Assessment /Plan Problems (1) Pneumonia Status: Acute Problem Specific Plan: Monitor Clinically Problem Text: His pneumonia is being treated with Zosyn and Vancomycin. He comes from an institutional setting. Clinically he seems to be doing well and his vitals are stable, but his WBC remains quite elevated. (2) Seizure Status: Chronic Response to Treatment: Controlled Problem Specific Plan: Monitor Clinically Problem Text: Neurology was contacted unofficially through the ER. They recommended he continue on his current doses of Keppra, phenobarbital and Dilantin, as his recent seizure was likely provoked by his acute illness. As soon as this stressor is controlled he should be back to his baseline. (3) Leukocytosis Status: Acute Response to Treatment: Uncontrolled Problem Text: He has a significant leukocytosis. This could be from demargination after the stress of his siezure, however, if this is the case I'm surprised it persisted this long. Will need to keep monitor. (4) Elevated BP without diagnosis of hypertension Status: Acute Discussed With: Nurse Problem Specific Plan: Monitor Clinically Problem Text: He does not have a h/o HTN, but his BPs are starting to creep up. Will monitor for now. He is on IV fluids to support his renal fx; this could be a part of the problem. Plan/VTE VTE Prophylaxis Ordered?: Yes (Lovenox, SCDs and TEDs) Plan Diet: Continue Current Diagnostics: Repeat Labs in AM VS, I&O, 24H, Fishbone Vital Signs/I&O Vital Signs Date Time Temp Pulse Resp B/P (MAP) Pulse Ox O2 Delivery O2 Flow Rate FiO2 10/18/16 16:51 142/86 (104) 10/18/16 16:00 98.6 92 18 98 Room Air I&O- Last 24 Hours up to 6 AM 10/18/16 06:00 Intake Total 1050 ml Output Total 0 ml Balance 1050 ml Laboratory Data 24H LABS Laboratory Tests 2 10/18/16 04:46: Anion Gap 11, Glomerular Filtration Rate 50.9L, Blood Urea Nitrogen 24#H, Creatinine 1.53#H, Sodium Level 141, Potassium Level 4.0, Chloride Level 107, Carbon Dioxide Level 23, Calcium Level 8.0L, Magnesium Level 2.0, C-Reactive Protein, Quantitative 12.00H 10/18/16 19:00: Vancomycin Level Trough 24.3H CBC/BMP Laboratory Tests 10/18/16 04:46 Red Blood Count 4.09 L, Mean Corpuscular Volume 88.1, Mean Corpuscular Hemoglobin 29.9, Mean Corpuscular Hemoglobin Concent 33.9, Red Cell Distribution Width 12.7, Calcium Level 8.0 L Microbiology Microbiology 10/17/16 Blood Culture, Received Pending 10/17/16 Blood Culture, Received Pending 10/18/16 Gastrointestinal Tract Panel (PCR) - Final, Complete 10/18/16 Respiratory Virus Panel (PCR) ([facility]) - Final, Complete 10/17/16 Urine Culture, Received Pending Wade Natarajan MD Oct 18, 2016 20:10
[2016-10-18] MEDS: SENNA 8.6 MG TAB (SENOKOT) PO SCH (21:36)
[2016-10-19] VITALS (8 sets, daily range): BP systolic 142–178; BP diastolic 82–108
[2016-10-19] MEDS: NS 1,000 ML IV SCH ×3 (01:12→19:08)
[2016-10-19] MEDS: PIPERACILLIN/TAZOBACTAM SOD 3.375 GM in D5W MINI-BAG PLUS 50 ML IV SCH ×4 (03:53→21:31)
[2016-10-19 05:19] LABS: BASO % 0.2 % (0.0-1.0); EOS % 0.2 % (0.0-3.0); LARGE UNSTAINED CELL # 0.2 K/mm3 (0.0-0.4); LARGE UNSTAINED CELL % 1.3 % (0.0-4.0); LYMPH # 1.7 K/mm3 (1.5-4.5); LYMPH % 8.9 % (24.0-44.0); MEAN CORPUSCULAR HEMOGLOBIN 30.5 pg (27.0-33.0); MEAN CORPUSCULAR HGB CONC 34.3 g/dl (32.0-36.5); MEAN CORPUSCULAR VOLUME 88.9 fl (80.0-96.0); MONO # 1.4 K/mm3 (0.0-0.8); MONO % 8.5 % (0.0-5.0); NEUTROPHILS # 13.7 K/mm3 (1.8-7.7); NEUTROPHILS % 80.9 % (36.0-66.0); PLATELET COUNT, AUTOMATED 265 k/mm3 (150-450); RED CELL DISTRIBUTION WIDTH 12.8 % (11.5-14.5); WHITE BLOOD COUNT 16.9 K/mm3 (4.0-10.0)
[2016-10-19 05:40] LABS: ALBUMIN/GLOBULIN RATIO 0.77 (1.00-1.93); ALKALINE PHOSPHATASE 84 U/L (45-117); ALT/SGPT 22 U/L (12-78); ANION GAP 11 MEQ/L (8-16); AST/SGOT 21 U/L (15-37); BILIRUBIN,TOTAL 0.2 MG/DL (0.2-1.0); BLOOD UREA NITROGEN 21 MG/DL (7-18); CALCIUM LEVEL 7.9 MG/DL (8.5-10.1); CARBON DIOXIDE LEVEL 24 MEQ/L (21-32); CHLORIDE LEVEL 112 MEQ/L (98-107); CREATININE FOR GFR 1.24 MG/DL (0.70-1.30); GLOMERULAR FILTRATION RATE > 60.0 (>56); GLUCOSE, FASTING 94 MG/DL (70-105); POTASSIUM SERUM 3.3 MEQ/L (3.5-5.1); SODIUM LEVEL 147 MEQ/L (136-145); TOTAL PROTEIN 6.9 GM/DL (6.4-8.2)
[2016-10-19] MEDS: ENOXAPARIN 40 MG/0.4 ML SYRINGE (J1650) SC SCH (09:04)
[2016-10-19] MEDS: CHLORHEXIDINE GLUCONATE 0.12 % 15ML UDC (PERIDEX ORAL RINSE) SSP SCH ×2 (09:04→21:30)
[2016-10-19] MEDS: LORATADINE 10 MG TAB PO SCH (09:05)
[2016-10-19] MEDS: levETIRAcetam 250MG TABLET (KEPPRA) PO SCH ×2 (09:05→21:31)
[2016-10-19] MEDS: MULTIVITAMINS/MINERALS THERAP 1 TAB PO SCH (09:05)
[2016-10-19] MEDS: ASPIRIN 81 MG ENTERIC TAB PO SCH (09:05)
[2016-10-19] MEDS: SENOKOT S TAB PO SCH ×2 (09:05→21:31)
[2016-10-19] MEDS: OMEPRAZOLE 20 MG CAP PO SCH (09:05)
[2016-10-19] MEDS: oxyBUTYnin *DITROPAN XL* 5 MG TABCR PO SCH (09:05)
[2016-10-19] MEDS: PHENYTOIN ER 100 MG CAP PO SCH ×2 (09:05→21:30)
[2016-10-19] MEDS: PHENobarbital 30 MG TAB PO SCH ×3 (09:06→21:31)
[2016-10-19] MEDS: VANCOMYCIN HCL 1,000 MG, VIAL MATE ADAPTER 1 EACH in D5W 250 ML IV SCH (15:26)
--- NOTE | 2016-10-19 16:56 | IPNPDOC ---
Subjective Date Seen The patient was seen on 10/19/16. Subjective Chief Complaint/HPI The patient is a 55-year-old male admitted with a reason for visit of Seizure, Pneumonia. Events since last encounter Cade did well overnight per nursing and the staff member with him. No new seizures. He appears comfortable, except he is unhappy with a different environment as far as anyone can tell. General: Reports: ROS Unobtainable (secondary to mental retardation) Objective Physical Examination General Exam: Positive: Alert, Cooperative, No Acute Distress Eye Exam: Positive: Conjunctiva & lids normal, Negative: Sclera icteric ENT Exam: Positive: Mucous membr. moist/pink Neck Exam: Positive: Supple, Negative: Lymphadenopathy Chest Exam: Positive: Normal air movement, Rales (noted in the bottom half of the R posterior and lateral lung diaz. There were a few fine crackles noted in the bilateral lung bases. ? atalectasis), Negative: Wheezing Heart Exam: Positive: Rate Normal, Normal S1, Normal S2, Negative: Murmurs Abdomen Exam: Positive: Normal bowel sounds, Soft, Negative: Tenderness Extremity Exam: Negative: Edema Neuro Exam: Negative: Normal Speech (non-verbal) Psych Exam: Negative: Mental status NL Assessment /Plan Problems (1) Pneumonia Status: Acute Problem Specific Plan: Monitor Clinically Problem Text: His pneumonia is being treated with Zosyn and Vancomycin. He comes from an institutional setting. Clinically he seems to be doing well and his vitals are stable. His WBCs are dropping, but are still reasonably elevated. (2) Leukocytosis Status: Acute Response to Treatment: Uncontrolled Problem Text: His leukocytosis about halved, which I take as a good sign that we are on the right track. None the less it is still elevated. We will continue to monitor. (3) Seizure Status: Chronic Response to Treatment: Controlled Problem Specific Plan: Monitor Clinically Problem Text: Continue on his current doses of Keppra, phenobarbital, and Dilantin, as his recent seizure was likely provoked by his acute illness. As soon as this stressor is controlled he should be back to his baseline. (4) Elevated BP without diagnosis of hypertension Status: Acute Discussed With: Nurse Problem Specific Plan: Monitor Clinically Problem Text: He does not have a h/o HTN, but his BPs are still elevated. The IVF was stopped earlier in the day when his renal fx was noted to be improved. This didn't make a big difference in bringing his BP down. I decided to start him on chlorthalidone today. 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 (5) Hypokalemia Status: Acute Problem Text: His potassium was a little low this morning. It may have related to the extra IVF. I gave him a one time dose of oral potassium. Will monitor. Plan/VTE VTE Prophylaxis Ordered?: Yes (Lovenox, SCDs and TEDs) Plan Diet: Continue Current Diagnostics: Repeat Labs in AM VS, I&O, 24H, Fishbone Vital Signs/I&O Vital Signs Date Time Temp Pulse Resp B/P (MAP) Pulse Ox O2 Delivery O2 Flow Rate FiO2 10/19/16 16:00 99.4 87 20 154/103 (120) 97 Room Air I&O- Last 24 Hours up to 6 AM 10/19/16 05:59 Intake Total 2550 ml Balance 2550 ml Laboratory Data 24H LABS Laboratory Tests 2 10/18/16 19:00: Vancomycin Level Trough 24.3H 10/19/16 04:45: White Blood Count 16.9H, Red Blood Count 4.06L, Hemoglobin 12.4L, Hematocrit 36.1L, Mean Corpuscular Volume 88.9, Mean Corpuscular Hemoglobin 30.5, Mean Corpuscular Hemoglobin Concent 34.3, Red Cell Distribution Width 12.8, Platelet Count 265, Neutrophils (%) (Auto) 80.9H, Lymphocytes (%) (Auto) 8.9L, Monocytes (%) (Auto) 8.5H, Eosinophils (%) (Auto) 0.2, Basophils (%) (Auto) 0.2, Neutrophils # (Auto) 13.7H, Lymphocytes # (Auto) 1.7, Monocytes # (Auto) 1.4H, Eosinophils # (Auto) 0.0, Basophils # (Auto) 0.0, Large Unclassified Cells % 1.3 , Large Unclassified Cells # 0.2, Anion Gap 11, Glomerular Filtration Rate > 60.0, Blood Urea Nitrogen 21H, Creatinine 1.24, Sodium Level 147H, Potassium Level 3.3L, Chloride Level 112H, Carbon Dioxide Level 24, Calcium Level 7.9L, Aspartate Amino Transf (AST/SGOT) 21, Alanine Aminotransferase (ALT/SGPT) 22, Alkaline Phosphatase 84, Total Bilirubin 0.2, Total Protein 6.9, Albumin 3.0L, C -Reactive Protein, Quantitative 14.90H, Albumin/Globulin Ratio 0.77L 10/19/16 14:42: Vancomycin Level Trough 17.1 CBC/BMP Laboratory Tests 10/19/16 04:45 Red Blood Count 4.06 L, Mean Corpuscular Volume 88.9, Mean Corpuscular Hemoglobin 30.5, Mean Corpuscular Hemoglobin Concent 34.3, Red Cell Distribution Width 12.8, Neutrophils (%) (Auto) 80.9 H, Lymphocytes (%) (Auto) 8.9 L, Monocytes (%) (Auto) 8.5 H, Eosinophils (%) (Auto) 0.2, Basophils (%) ( Auto) 0.2, Neutrophils # (Auto) 13.7 H, Lymphocytes # (Auto) 1.7, Monocytes # ( Auto) 1.4 H, Eosinophils # (Auto) 0.0, Basophils # (Auto) 0.0, Calcium Level 7.9 L, Aspartate Amino Transf (AST/SGOT) 21, Alanine Aminotransferase (ALT/SGPT ) 22, Alkaline Phosphatase 84, Total Bilirubin 0.2, Total Protein 6.9, Albumin 3.0 L Microbiology Microbiology 10/17/16 Blood Culture - Preliminary, Resulted No Growth after 48 hours. All Specime... 10/17/16 Blood Culture - Preliminary, Resulted No Growth after 48 hours. All Specime... 10/18/16 Gastrointestinal Tract Panel (PCR) - Final, Complete 10/18/16 Respiratory Virus Panel (PCR) ([facility]) - Final, Complete 10/17/16 Urine Culture - Final, Complete Wade Natarajan MD Oct 19, 2016 16:56
[2016-10-19] MEDS ORDERED: CHLORTHALIDONE 12.5MG PER 1/2 TABLET PO ONE (18:00)
[2016-10-19] MEDS ORDERED: POTASSIUM CHLORIDE 10 MEQ SR TABLET PO ONE (18:00)
[2016-10-19] MEDS ORDERED: amLODIPine 5 MG TAB PO ONE (20:45)
[2016-10-19] MEDS: SENNA 8.6 MG TAB (SENOKOT) PO SCH (21:31)
[2016-10-20 02:27] VITALS: BP 160/90
[2016-10-20] MEDS: PIPERACILLIN/TAZOBACTAM SOD 3.375 GM in D5W MINI-BAG PLUS 50 ML IV SCH ×4 (02:42→20:52)
[2016-10-20 04:00] VITALS: BP 142/92
[2016-10-20 05:24] LABS: BASO % 0.2 % (0.0-1.0); EOS # 0.2 K/mm3 (0.0-0.50); EOS % 1.5 % (0.0-3.0); LARGE UNSTAINED CELL # 0.3 K/mm3 (0.0-0.4); LARGE UNSTAINED CELL % 2.4 % (0.0-4.0); LYMPH # 2.6 K/mm3 (1.5-4.5); LYMPH % 17.1 % (24.0-44.0); MEAN CORPUSCULAR HEMOGLOBIN 30.8 pg (27.0-33.0); MEAN CORPUSCULAR HGB CONC 34.7 g/dl (32.0-36.5); MEAN CORPUSCULAR VOLUME 88.7 fl (80.0-96.0); MONO # 1.3 K/mm3 (0.0-0.8); MONO % 9.5 % (0.0-5.0); NEUTROPHILS # 9.2 K/mm3 (1.8-7.7); NEUTROPHILS % 69.4 % (36.0-66.0); PLATELET COUNT, AUTOMATED 264 k/mm3 (150-450); RED CELL DISTRIBUTION WIDTH 12.9 % (11.5-14.5); WHITE BLOOD COUNT 13.2 K/mm3 (4.0-10.0)
[2016-10-20 07:10] VITALS: BP 140/90
[2016-10-20] MEDS: CHLORTHALIDONE 25 MG TAB PO SCH (09:00)
[2016-10-20 09:23] LABS: ANION GAP 9 MEQ/L (8-16); BLOOD UREA NITROGEN 16 MG/DL (7-18); CALCIUM LEVEL 8.2 MG/DL (8.5-10.1); CARBON DIOXIDE LEVEL 25 MEQ/L (21-32); CHLORIDE LEVEL 110 MEQ/L (98-107); CREATININE FOR GFR 1.16 MG/DL (0.70-1.30); GLOMERULAR FILTRATION RATE > 60.0 (>56); GLUCOSE, FASTING 88 MG/DL (70-105); PHOSPHORUS LEVEL 3.2 MG/DL (2.5-4.9); SODIUM LEVEL 144 MEQ/L (136-145)
--- NOTE | 2016-10-20 09:25 | IPNPDOC ---
Subjective Date Seen The patient was seen on 10/20/16. Subjective Chief Complaint/HPI The patient is a 55-year-old male admitted with a reason for visit of Seizure, Pneumonia. Events since last encounter No new issues per staff. General: Reports: ROS Unobtainable Objective Physical Examination General Exam: Positive: Alert, Cooperative, No Acute Distress Eye Exam: Positive: Conjunctiva & lids normal, Negative: Sclera icteric ENT Exam: Positive: Mucous membr. moist/pink Neck Exam: Positive: Supple, Negative: Lymphadenopathy Chest Exam: Positive: Normal air movement, Rales (noted in the bottom half of the R posterior and lateral lung diaz. There were a few fine crackles noted in the bilateral lung bases. ? atalectasis), Negative: Wheezing Heart Exam: Positive: Rate Normal, Normal S1, Normal S2, Negative: Murmurs Abdomen Exam: Positive: Normal bowel sounds, Soft, Negative: Tenderness Extremity Exam: Negative: Edema Neuro Exam: Positive: Normal Speech (non-verbal) Psych Exam: Negative: Mental status NL Assessment /Plan Problems (1) Pneumonia Status: Acute Problem Specific Plan: Monitor Clinically Problem Text: 10/20 - IV Zosyn and vanco. WBC trending down. 10/19 - His pneumonia is being treated with Zosyn and Vancomycin. He comes from an institutional setting. Clinically he seems to be doing well and his vitals are stable. His WBCs are dropping, but are still reasonably elevated. (2) Leukocytosis Status: Acute Response to Treatment: Improving Problem Text: 10/20 - WBC trending down. 13.2 today. 10/19 - His leukocytosis about halved, which I take as a good sign that we are on the right track. None the less it is still elevated. We will continue to monitor. (3) Seizure Status: Chronic Response to Treatment: Controlled Problem Specific Plan: Monitor Clinically Problem Text: According to [facility] staff member, his seizure activity is about monthly, but varies. Continue on his current doses of Keppra, phenobarbital, and Dilantin, as his recent seizure was likely provoked by his acute illness. As soon as this stressor is controlled he should be back to his baseline. (4) Elevated BP without diagnosis of hypertension Status: Acute Discussed With: Nurse Problem Specific Plan: Monitor Clinically Problem Text: 10/20 - On Chlorthalidone. BPs improving. Also received a single dose of amlodipine yesterday which is likely primarily responsible for the BP improvement that we have seen so far. Will continue and arrange Doppler of his renal arteries 10/19 - He does not have a h/o HTN, but his BPs are still elevated. The IVF was stopped earlier in the day when his renal fx was noted to be improved. This didn 't make a big difference in bringing his BP down. I decided to start him on chlorthalidone today. Hopefully he won't need this on a care home basis. (5) Hypokalemia Status: Acute Problem Text: 10/20 - K 4.0 this am. 10/19 - His potassium was a little low this morning. It may have related to the extra IVF. I gave him a one time dose of oral potassium. Will monitor. Plan/VTE VTE Prophylaxis Ordered?: Yes (Lovenox, SCDs and TEDs) Plan Diet: Continue Current Diagnostics: Repeat Labs in AM VS, I&O, 24H, Fishbone Vital Signs/I&O Vital Signs Date Time Temp Pulse Resp B/P (MAP) Pulse Ox O2 Delivery O2 Flow Rate FiO2 10/20/16 08:17 Room Air 10/20/16 07:10 97.4 94 20 140/90 (107) 96 I&O- Last 24 Hours up to 6 AM 10/20/16 06:00 Intake Total 1610 ml Balance 1610 ml Laboratory Data 24H LABS Laboratory Tests 2 10/19/16 14:42: Vancomycin Level Trough 17.1 10/20/16 04:49: White Blood Count 13.2H, Red Blood Count 4.17L, Hemoglobin 12.9L, Hematocrit 37.0L, Mean Corpuscular Volume 88.7, Mean Corpuscular Hemoglobin 30.8, Mean Corpuscular Hemoglobin Concent 34.7, Red Cell Distribution Width 12.9, Platelet Count 264, Neutrophils (%) (Auto) 69.4H, Lymphocytes (%) (Auto) 17.1L, Monocytes (%) (Auto) 9.5H, Eosinophils (%) (Auto) 1.5, Basophils (%) (Auto) 0.2 , Neutrophils # (Auto) 9.2H, Lymphocytes # (Auto) 2.6, Monocytes # (Auto) 1.3H, Eosinophils # (Auto) 0.2, Basophils # (Auto) 0.0, Large Unclassified Cells % 2.4 , Large Unclassified Cells # 0.3 CBC/BMP Laboratory Tests 10/20/16 04:49 Red Blood Count 4.17 L, Mean Corpuscular Volume 88.7, Mean Corpuscular Hemoglobin 30.8, Mean Corpuscular Hemoglobin Concent 34.7, Red Cell Distribution Width 12.9, Neutrophils (%) (Auto) 69.4 H, Lymphocytes (%) (Auto) 17.1 L, Monocytes (%) (Auto) 9.5 H, Eosinophils (%) (Auto) 1.5, Basophils (%) ( Auto) 0.2, Neutrophils # (Auto) 9.2 H, Lymphocytes # (Auto) 2.6, Monocytes # ( Auto) 1.3 H, Eosinophils # (Auto) 0.2, Basophils # (Auto) 0.0 Microbiology Microbiology 10/17/16 Blood Culture - Preliminary, Resulted No Growth after 48 hours. All Specime... 10/17/16 Blood Culture - Preliminary, Resulted No Growth after 48 hours. All Specime... 10/18/16 Gastrointestinal Tract Panel (PCR) - Final, Complete 10/18/16 Respiratory Virus Panel (PCR) ([facility]) - Final, Complete 10/17/16 Urine Culture - Final, Complete Sanford Morales Oct 20, 2016 09:25 Selvin Haley MD Oct 20, 2016 15:43
[2016-10-20] MEDS: CHLORHEXIDINE GLUCONATE 0.12 % 15ML UDC (PERIDEX ORAL RINSE) SSP SCH ×2 (09:56→20:51)
[2016-10-20] MEDS: MULTIVITAMINS/MINERALS THERAP 1 TAB PO SCH (09:57)
[2016-10-20] MEDS: SENOKOT S TAB PO SCH ×2 (09:57→20:52)
[2016-10-20] MEDS: PHENYTOIN ER 100 MG CAP PO SCH ×2 (09:57→21:36)
[2016-10-20] MEDS: LORATADINE 10 MG TAB PO SCH (09:57)
[2016-10-20] MEDS: ASPIRIN 81 MG ENTERIC TAB PO SCH (09:57)
[2016-10-20] MEDS: levETIRAcetam 250MG TABLET (KEPPRA) PO SCH ×2 (09:57→20:52)
[2016-10-20] MEDS: OMEPRAZOLE 20 MG CAP PO SCH (09:57)
[2016-10-20] MEDS: oxyBUTYnin *DITROPAN XL* 5 MG TABCR PO SCH (09:57)
[2016-10-20] MEDS: ENOXAPARIN 40 MG/0.4 ML SYRINGE (J1650) SC SCH (09:58)
[2016-10-20] MEDS: PHENobarbital 30 MG TAB PO SCH ×3 (10:03→21:36)
[2016-10-20] MEDS: VANCOMYCIN HCL 1,000 MG, VIAL MATE ADAPTER 1 EACH in D5W 250 ML IV SCH (11:22)
[2016-10-20 12:00] VITALS: BP_SYST 138; BP_SYST 140; BP_DIAS 70; BP_DIAS 88
[2016-10-20 16:00] VITALS: BP 130/70
[2016-10-20 20:00] VITALS: BP 152/103
[2016-10-20] MEDS: SENNA 8.6 MG TAB (SENOKOT) PO SCH (20:52)
[2016-10-21] MEDS: PIPERACILLIN/TAZOBACTAM SOD 3.375 GM in D5W MINI-BAG PLUS 50 ML IV SCH ×4 (02:43→20:23)
[2016-10-21] MEDS: VANCOMYCIN HCL 1,000 MG, VIAL MATE ADAPTER 1 EACH in D5W 250 ML IV SCH ×2 (04:18→21:34)
[2016-10-21 06:00] VITALS: BP 144/92
[2016-10-21 07:25] LABS: MEAN CORPUSCULAR HEMOGLOBIN 30.5 pg (27.0-33.0); MEAN CORPUSCULAR HGB CONC 34.3 g/dl (32.0-36.5); MEAN CORPUSCULAR VOLUME 88.8 fl (80.0-96.0); RED CELL DISTRIBUTION WIDTH 12.7 % (11.5-14.5); WHITE BLOOD COUNT 9.3 K/mm3 (4.0-10.0)
[2016-10-21 07:47] LABS: ANION GAP 10 MEQ/L (8-16); BLOOD UREA NITROGEN 18 MG/DL (7-18); CALCIUM LEVEL 8.8 MG/DL (8.5-10.1); CARBON DIOXIDE LEVEL 27 MEQ/L (21-32); CHLORIDE LEVEL 102 MEQ/L (98-107); CREATININE FOR GFR 1.03 MG/DL (0.70-1.30); GLOMERULAR FILTRATION RATE > 60.0 (>56); GLUCOSE, FASTING 115 MG/DL (70-105); MAGNESIUM LEVEL 2.1 MG/DL (1.8-2.4); POTASSIUM SERUM 4.1 MEQ/L (3.5-5.1); SODIUM LEVEL 139 MEQ/L (136-145)
[2016-10-21] MEDS: OMEPRAZOLE 20 MG CAP PO SCH (08:46)
[2016-10-21] MEDS: levETIRAcetam 250MG TABLET (KEPPRA) PO SCH ×2 (08:46→20:23)
[2016-10-21] MEDS: ENOXAPARIN 40 MG/0.4 ML SYRINGE (J1650) SC SCH (08:46)
[2016-10-21] MEDS: LORATADINE 10 MG TAB PO SCH (08:46)
[2016-10-21] MEDS: ASPIRIN 81 MG ENTERIC TAB PO SCH (08:46)
[2016-10-21] MEDS: CHLORTHALIDONE 25 MG TAB PO SCH (08:47)
[2016-10-21] MEDS: PHENYTOIN ER 100 MG CAP PO SCH ×2 (08:47→20:23)
[2016-10-21] MEDS: amLODIPine 5 MG TAB PO SCH (08:47)
[2016-10-21] MEDS: MULTIVITAMINS/MINERALS THERAP 1 TAB PO SCH (08:47)
[2016-10-21] MEDS: CHLORHEXIDINE GLUCONATE 0.12 % 15ML UDC (PERIDEX ORAL RINSE) SSP SCH ×2 (08:47→20:23)
[2016-10-21] MEDS: SENOKOT S TAB PO SCH ×2 (08:47→20:24)
[2016-10-21] MEDS: PHENobarbital 30 MG TAB PO SCH ×3 (08:47→20:24)
[2016-10-21] MEDS: oxyBUTYnin *DITROPAN XL* 5 MG TABCR PO SCH (11:02)
--- NOTE | 2016-10-21 13:20 | IPNPDOC ---
Subjective Date Seen The patient was seen on 10/21/16. Subjective Chief Complaint/HPI The patient is a 55-year-old male admitted with a reason for visit of Seizure, Pneumonia. Events since last encounter Mr. Mondragon is doing well per nursing. He seems to be in good spirits today. The sitter with him doesn't report any concerns. He has not had a seizure since the short one he had in the evening 3 days ago. General: Reports: ROS Unobtainable Objective Physical Examination General Exam: Positive: Alert, Cooperative, No Acute Distress Eye Exam: Positive: Conjunctiva & lids normal, Negative: Sclera icteric ENT Exam: Positive: Mucous membr. moist/pink Neck Exam: Positive: Supple, Negative: Lymphadenopathy Chest Exam: Positive: Normal air movement, Rales (noted in the R posterior lung field), Negative: Wheezing Heart Exam: Positive: Rate Normal, Normal S1, Normal S2, Negative: Murmurs Abdomen Exam: Positive: Normal bowel sounds, Soft, Negative: Tenderness Extremity Exam: Negative: Edema Neuro Exam: Negative: Normal Speech (non-verbal) Psych Exam: Negative: Mental status NL Assessment /Plan Problems (1) Pneumonia Status: Acute Problem Specific Plan: Monitor Clinically Problem Text: His WBC have now normalized. If they stay this way and the other inflammatory markers continue to trend down tomorrow, I anticipate we may change him to PO abx then and consider a discharge on 10/23. Will monitor. (2) Seizure Status: Chronic Response to Treatment: Controlled Problem Specific Plan: Monitor Clinically Problem Text: According to [facility] staff member, his seizure activity is about monthly, but varies. Continue on his current doses of Keppra, phenobarbital, and Dilantin, as his recent seizure was likely provoked by his acute illness. As soon as this stressor is controlled he should be back to his baseline. (3) Elevated BP without diagnosis of hypertension Status: Acute Discussed With: Nurse Problem Specific Plan: Monitor Clinically Problem Text: An attempt was made to assess his renal arteries by US. Unfortunately, he was not very cooperative with the examination and all we ended with was a very limited study, with no significant abnormalities noted. His BP remains better controlled on chlorthalidone and amlodipine. I would like to continue to look into this. (4) Hypokalemia Status: Resolved Problem Text: 10/20 - K 4.0 this am. 10/19 - His potassium was a little low this morning. It may have related to the extra IVF. I gave him a one time dose of oral potassium. Will monitor. (5) Leukocytosis Status: Resolved Response to Treatment: Improving Problem Text: 10/20 - WBC trending down. 13.2 today. 10/19 - His leukocytosis about halved, which I take as a good sign that we are on the right track. None the less it is still elevated. We will continue to monitor. Plan/VTE VTE Prophylaxis Ordered?: Yes (Lovenox, SCDs and TEDs) Plan Diet: Continue Current Diagnostics: Repeat Labs in AM VS, I&O, 24H, Fishbone Vital Signs/I&O Vital Signs Date Time Temp Pulse Resp B/P (MAP) Pulse Ox O2 Delivery O2 Flow Rate FiO2 10/21/16 09:00 Room Air 10/21/16 08:47 88 144/92 10/21/16 06:00 98.5 18 97 I&O- Last 24 Hours up to 6 AM 10/21/16 06:00 Intake Total 1180 ml Output Total 175 ml Balance 1005 ml Laboratory Data 24H LABS Laboratory Tests 2 10/21/16 06:25: Anion Gap 10, Glomerular Filtration Rate > 60.0, Blood Urea Nitrogen 18, Creatinine 1.03, Sodium Level 139, Potassium Level 4.1, Chloride Level 102, Carbon Dioxide Level 27, Calcium Level 8.8, Magnesium Level 2.1 CBC/BMP Laboratory Tests 10/21/16 06:25 Red Blood Count 4.28 L, Mean Corpuscular Volume 88.8, Mean Corpuscular Hemoglobin 30.5, Mean Corpuscular Hemoglobin Concent 34.3, Red Cell Distribution Width 12.7, Calcium Level 8.8 Microbiology Microbiology 10/17/16 Blood Culture - Final, Complete 10/17/16 Blood Culture - Final, Complete 10/18/16 Gastrointestinal Tract Panel (PCR) - Final, Complete 10/18/16 Respiratory Virus Panel (PCR) ([facility]) - Final, Complete 10/17/16 Urine Culture - Final, Complete Wade Natarajan MD Oct 21, 2016 1:19 pm
[2016-10-21 14:00] VITALS: BP 121/90
--- NOTE | 2016-10-21 16:47 | REP ---
Urinary tract sonography and renal artery Doppler flow assessment: History: New onset hypertension. Findings: Scanning through the urinary bladder shows smooth bladder nelson. Renal cortical echogenicity pattern is normal and renal contours are smooth on both sides. There are central linear echoes in the central renal sinus fat bilaterally which may reflect renal vascular calcification. No hydronephrosis is seen on either side. No mass or cyst is observed. The right kidney measures 9.6 x 5.6 x 6.4 cm. Left renal dimensions of 10.0 x 5.8 x 6.5 cm. Renal artery Doppler flow assessment: Exam quality was markedly inhibited in part by the patient's limited ability to cooperate. We were not able to quantitate flow velocities in the abdominal aorta or in either main renal artery by Doppler. Resistive indices and acceleration times are measured in the upper mid and lower pole intralobar arteries bilaterally and these values are normal. Impression: No significant morphologic abnormality. Extremely limited Doppler assessment. No indirect evidence of renal artery stenosis. Signed by Karel Glynn MD 10/22/2016 07:57 A
[2016-10-21] MEDS: SENNA 8.6 MG TAB (SENOKOT) PO SCH (20:23)
[2016-10-21 22:00] VITALS: BP 134/89
[2016-10-22] MEDS: PIPERACILLIN/TAZOBACTAM SOD 3.375 GM in D5W MINI-BAG PLUS 50 ML IV SCH ×3 (02:47→14:41)
[2016-10-22 06:00] VITALS: BP 140/88
[2016-10-22 06:44] LABS: MEAN CORPUSCULAR HEMOGLOBIN 31.2 pg (27.0-33.0); MEAN CORPUSCULAR HGB CONC 35.2 g/dl (32.0-36.5); MEAN CORPUSCULAR VOLUME 88.6 fl (80.0-96.0); RED CELL DISTRIBUTION WIDTH 12.2 % (11.5-14.5); WHITE BLOOD COUNT 9.8 K/mm3 (4.0-10.0)
[2016-10-22 06:55] LABS: ALBUMIN 3.1 GM/DL (3.2-5.2); ANION GAP 11 MEQ/L (8-16); BLOOD UREA NITROGEN 17 MG/DL (7-18); CALCIUM LEVEL 9.5 MG/DL (8.5-10.1); CARBON DIOXIDE LEVEL 26 MEQ/L (21-32); CHLORIDE LEVEL 102 MEQ/L (98-107); CREATININE FOR GFR 1.05 MG/DL (0.70-1.30); GLOMERULAR FILTRATION RATE > 60.0 (>56); GLUCOSE, FASTING 92 MG/DL (70-105); PHOSPHORUS LEVEL 4.2 MG/DL (2.5-4.9); POTASSIUM SERUM 4.2 MEQ/L (3.5-5.1); SODIUM LEVEL 139 MEQ/L (136-145)
[2016-10-22] MEDS: MULTIVITAMINS/MINERALS THERAP 1 TAB PO SCH (08:33)
[2016-10-22] MEDS: levETIRAcetam 250MG TABLET (KEPPRA) PO SCH ×2 (08:33→20:47)
[2016-10-22] MEDS: LORATADINE 10 MG TAB PO SCH (08:34)
[2016-10-22] MEDS: oxyBUTYnin *DITROPAN XL* 5 MG TABCR PO SCH (08:34)
[2016-10-22] MEDS: amLODIPine 5 MG TAB PO SCH (08:34)
[2016-10-22] MEDS: PHENYTOIN ER 100 MG CAP PO SCH ×2 (08:34→20:47)
[2016-10-22] MEDS: OMEPRAZOLE 20 MG CAP PO SCH (08:34)
[2016-10-22] MEDS: CHLORTHALIDONE 25 MG TAB PO SCH (08:34)
[2016-10-22] MEDS: PHENobarbital 30 MG TAB PO SCH ×3 (08:34→20:46)
[2016-10-22] MEDS: CHLORHEXIDINE GLUCONATE 0.12 % 15ML UDC (PERIDEX ORAL RINSE) SSP SCH (08:35)
[2016-10-22] MEDS: ASPIRIN 81 MG ENTERIC TAB PO SCH (08:35)
[2016-10-22] MEDS: ENOXAPARIN 40 MG/0.4 ML SYRINGE (J1650) SC SCH (08:35)
[2016-10-22] MEDS: SENOKOT S TAB PO SCH ×2 (08:35→20:46)
[2016-10-22 14:00] VITALS: BP 124/84
[2016-10-22] MEDS: VANCOMYCIN HCL 1,000 MG, VIAL MATE ADAPTER 1 EACH in D5W 250 ML IV SCH (16:27)
[2016-10-22 20:00] VITALS: BP 132/81
[2016-10-22] MEDS: DOXYCYCLINE HYCLATE 100 MG TAB PO SCH (20:46)
[2016-10-22] MEDS: AMOXICILLIN 875 MG TAB PO SCH (20:47)
[2016-10-22] MEDS: CHLORHEXIDINE ORAL RINSE 0.12%/15ML 120ML BOTTLE PO SCH (20:47)
[2016-10-22] MEDS: SENNA 8.6 MG TAB (SENOKOT) PO SCH (20:47)
--- NOTE | 2016-10-22 23:20 | IPNPDOC ---
Subjective Date Seen The patient was seen on 10/22/16. Subjective Chief Complaint/HPI The patient is a 55-year-old male admitted with a reason for visit of Seizure, Pneumonia. Events since last encounter Cade has done very well today. He is in a good mood. Neither the [facility] staff nor nursing staff have any concerns about him. General: Reports: ROS Unobtainable Objective Physical Examination General Exam: Positive: Alert, Cooperative, No Acute Distress Eye Exam: Positive: Conjunctiva & lids normal, Negative: Sclera icteric ENT Exam: Positive: Mucous membr. moist/pink Neck Exam: Positive: Supple, Negative: Lymphadenopathy Chest Exam: Positive: Normal air movement, Rales (noted in the R posterior diaz. Making slow improvment.), Negative: Wheezing Heart Exam: Positive: Rate Normal, Normal S1, Normal S2, Negative: Murmurs Abdomen Exam: Positive: Normal bowel sounds, Soft, Negative: Tenderness Extremity Exam: Negative: Edema Neuro Exam: Negative: Normal Speech (non-verbal) Psych Exam: Negative: Mental status NL Assessment /Plan Problems (1) Pneumonia Status: Acute Problem Specific Plan: Monitor Clinically Problem Text: His WBC remains in the normal range. I will change his Zosyn to amoxicillin 875mg PO BID + doxycycline 100mg BID. As long as he tolerates these oral medications and doesn't have any fever or leukocytosis, I anticipate he will be discharged back to [facility]. I let the staff member working with him know that we anticipate a discharge tomorrow. (2) Leukocytosis Status: Resolved Response to Treatment: Improving Problem Text: 10/20 - WBC trending down. 13.2 today. 10/19 - His leukocytosis about halved, which I take as a good sign that we are on the right track. None the less it is still elevated. We will continue to monitor. (3) Seizure Status: Chronic Response to Treatment: Controlled Problem Specific Plan: Monitor Clinically Problem Text: According to [facility] staff member, his seizure activity is about monthly, but varies. Continue on his current doses of Keppra, phenobarbital, and Dilantin, as his recent seizure was likely provoked by his acute illness. As soon as this stressor is controlled he should be back to his baseline. (4) Elevated BP without diagnosis of hypertension Status: Acute Discussed With: Nurse Problem Specific Plan: Monitor Clinically Problem Text: His BP is reasonably controlled on carvedilol and chlorthalidone. The question is why does he need these when he hasn't ever needed in the past. (5) Hypokalemia Status: Resolved Plan/VTE VTE Prophylaxis Ordered?: Yes (Lovenox, SCDs and TEDs) Plan Diet: Continue Current Diagnostics: Repeat Labs in AM VS, I&O, 24H, Fishbone Vital Signs/I&O Vital Signs Date Time Temp Pulse Resp B/P (MAP) Pulse Ox O2 Delivery O2 Flow Rate FiO2 10/22/16 21:00 Room Air 10/22/16 20:00 99.5 86 18 132/81 (98) 94 I&O- Last 24 Hours up to 6 AM 10/22/16 06:00 Intake Total 860 ml Output Total 0 ml Balance 860 ml Laboratory Data 24H LABS Laboratory Tests 2 10/22/16 06:35: Blood Urea Nitrogen 17, Creatinine 1.05, Sodium Level 139, Potassium Level 4.2, Chloride Level 102, Carbon Dioxide Level 26, Anion Gap 11, Glomerular Filtration Rate > 60.0, Calcium Level 9.5, Phosphorus Level 4.2#, C-Reactive Protein, Quantitative 7.01H, Albumin 3.1L 10/22/16 15:31: Vancomycin Level Trough 17.3 CBC/BMP Laboratory Tests 10/22/16 06:35 Red Blood Count 4.81, Mean Corpuscular Volume 88.6, Mean Corpuscular Hemoglobin 31.2, Mean Corpuscular Hemoglobin Concent 35.2, Red Cell Distribution Width 12.2 , Anion Gap 11 Microbiology Microbiology 10/17/16 Blood Culture - Final, Complete 10/17/16 Blood Culture - Final, Complete 10/18/16 Gastrointestinal Tract Panel (PCR) - Final, Complete 10/18/16 Respiratory Virus Panel (PCR) ([facility]) - Final, Complete 10/17/16 Urine Culture - Final, Complete Wade Natarajan MD Oct 22, 2016 11:20 pm
[2016-10-23 04:00] VITALS: BP 121/78
[2016-10-23 06:53] LABS: BASO % 0.5 % (0.0-1.0); EOS # 0.6 K/mm3 (0.0-0.50); EOS % 5.7 % (0.0-3.0); LARGE UNSTAINED CELL # 0.4 K/mm3 (0.0-0.4); LARGE UNSTAINED CELL % 4.3 % (0.0-4.0); LYMPH # 2.5 K/mm3 (1.5-4.5); LYMPH % 21.1 % (24.0-44.0); MEAN CORPUSCULAR HEMOGLOBIN 30.5 pg (27.0-33.0); MEAN CORPUSCULAR HGB CONC 33.9 g/dl (32.0-36.5); MEAN CORPUSCULAR VOLUME 89.9 fl (80.0-96.0); MONO # 1.2 K/mm3 (0.0-0.8); MONO % 12.8 % (0.0-5.0); NEUTROPHILS # 5.3 K/mm3 (1.8-7.7); NEUTROPHILS % 55.5 % (36.0-66.0); PLATELET COUNT, AUTOMATED 348 k/mm3 (150-450); RED CELL DISTRIBUTION WIDTH 12.5 % (11.5-14.5); WHITE BLOOD COUNT 9.6 K/mm3 (4.0-10.0)
[2016-10-23 07:23] LABS: ANION GAP 9 MEQ/L (8-16); BLOOD UREA NITROGEN 22 MG/DL (7-18); CALCIUM LEVEL 8.7 MG/DL (8.5-10.1); CARBON DIOXIDE LEVEL 28 MEQ/L (21-32); CHLORIDE LEVEL 102 MEQ/L (98-107); GLOMERULAR FILTRATION RATE > 60.0 (>56); GLUCOSE, FASTING 90 MG/DL (70-105); POTASSIUM SERUM 4.3 MEQ/L (3.5-5.1); SODIUM LEVEL 139 MEQ/L (136-145)
[2016-10-23] MEDS: ENOXAPARIN 40 MG/0.4 ML SYRINGE (J1650) SC SCH (08:23)
[2016-10-23] MEDS: DOXYCYCLINE HYCLATE 100 MG TAB PO SCH (08:24)
[2016-10-23] MEDS: PHENobarbital 30 MG TAB PO SCH (08:24)
[2016-10-23] MEDS: CHLORTHALIDONE 25 MG TAB PO SCH (08:24)
[2016-10-23] MEDS: AMOXICILLIN 875 MG TAB PO SCH (08:24)
[2016-10-23] MEDS: OMEPRAZOLE 20 MG CAP PO SCH (08:24)
[2016-10-23] MEDS: ASPIRIN 81 MG ENTERIC TAB PO SCH (08:24)
[2016-10-23] MEDS: LORATADINE 10 MG TAB PO SCH (08:24)
[2016-10-23] MEDS: levETIRAcetam 250MG TABLET (KEPPRA) PO SCH (08:24)
[2016-10-23] MEDS: SENOKOT S TAB PO SCH (08:24)
[2016-10-23 08:25] VITALS: BP 121/78
[2016-10-23] MEDS: amLODIPine 5 MG TAB PO SCH (08:25)
[2016-10-23] MEDS: oxyBUTYnin *DITROPAN XL* 5 MG TABCR PO SCH (08:25)
[2016-10-23] MEDS: MULTIVITAMINS/MINERALS THERAP 1 TAB PO SCH (08:25)
[2016-10-23] MEDS: CHLORHEXIDINE ORAL RINSE 0.12%/15ML 120ML BOTTLE PO SCH (08:25)
[2016-10-23] MEDS: PHENYTOIN ER 100 MG CAP PO SCH (08:25)
[2016-10-23 14:00] VITALS: BP 134/96
[2016-10-23] MEDS ORDERED: AMOX875T PO (14:13)
[2016-10-23] MEDS ORDERED: DOXY100T2 PO (14:13)
[2016-10-23] MEDS ORDERED: CHLO25TA PO (14:16)
[2016-10-23] MEDS ORDERED: AMLO5TAB2 PO (14:16)
--- NOTE | 2016-10-23 14:17 | DS.PDOC ---
Discharge Summary General Date of Admission Oct 17, 2016 at 18:17 Date of Discharge 10/23/16 Primary Care Physician: Ash Vences M.D. Attending Physician: Wade Natarajan MD Discharge Summary ADMITTING DIAGNOSES: 1. Right lower lobe pneumonia, possibly healthcare acquired. 2. Recent dental procedure. 3. Seizure disorder. 4. Profound mental retardation 5. Overactive bladder 6. Gastroesophageal reflux disease 7. Chronic constipation DISCHARGE DIAGNOSES: 1. Right lower lobe pneumonia. 2. Leukocytosis. 3. Seizure disorder. 4. Hypertension, new diagnosis 5. Profound mental retardation 6. Acute kidney injury, possibly from vancomycin, resolved 7. Hyperkalemia, resolved PROCEDURES PERFORMED DURING STAY: None. ADMISSION HISTORY: Mr. Mondragon was admitted to the hospital after a seizure at the [facility] facility. On evaluation here he was found to have a pneumonia. Please see the admission history and physical for the remaining details. HOSPITAL COURSE: Mr. Mondragon was admitted to the hospital for treatment of a right lower lobe pneumonia. At first there wass some concern that it may be healthcare acquired/nosocomial and so treatment included vancomycin to cover potential MRSA pneumonia. His renal function declined substantially on the vancomycin and this medication was stopped. He seemed to do well on just the IV Zosyn and so this was continued for much of his hospitalization. He did have one additional seizure while here. We continued him on his regular seizure regimen as discussion with neurology confirmed that these should be considered provoked seizures because of his physiologic stress from the pneumonia, and therefore a regimen change was not indicated. The day prior to discharge he was changed from IV Zosyn to an oral regimen containing of higher dose amoxicillin plus doxycycline. He did well on this oral regimen for 24 hours and was discharged back to his [facility] facility. DISCHARGE CONDITION: Stable. FOLLOW-UP: Prior to discharge an appointment was requested with Dr. Vences or one of his associates early next week. DIET: Regular. ACTIVITY: As tolerated, he was specifically allowed to return to his day program as he is in a program that is not physically strenuous. DISCHARGE MEDICATIONS: Please see below. ALLERGIES: Please see below. LABORATORY DATA: Please see below. IMAGING: Chest x-ray 10/17/16, head CT 10/17/16, renal Doppler ultrasound 10/21/16 ITEMS TO FOLLOWUP ON ON OUTPATIENT: 1. New onset hypertension requiring chlorthalidone and amlodipine to control. No clear etiology for the sudden change. Vital Signs/I&Os Vital Signs Date Time Temp Pulse Resp B/P (MAP) Pulse Ox O2 Delivery O2 Flow Rate FiO2 10/23/16 08:30 Room Air 10/23/16 08:25 99 121/78 10/23/16 04:00 100.3 18 95 I&O- Last 24 Hours up to 6 AM 10/23/16 05:59 Intake Total 960 ml Output Total 0 ml Balance 960 ml Laboratory Data Labs 24H Laboratory Tests 2 10/22/16 15:31: Vancomycin Level Trough 17.3 10/23/16 06:20: White Blood Count 9.6, Red Blood Count 4.52, Hemoglobin 13.8L, Hematocrit 40.7L , Mean Corpuscular Volume 89.9, Mean Corpuscular Hemoglobin 30.5, Mean Corpuscular Hemoglobin Concent 33.9, Red Cell Distribution Width 12.5, Platelet Count 348, Neutrophils (%) (Auto) 55.5, Lymphocytes (%) (Auto) 21.1L, Monocytes (%) (Auto) 12.8H, Eosinophils (%) (Auto) 5.7H, Basophils (%) (Auto) 0.5, Neutrophils # (Auto) 5.3, Lymphocytes # (Auto) 2.5, Monocytes # (Auto) 1.2H, Eosinophils # (Auto) 0.6H, Basophils # (Auto) 0.0, Large Unclassified Cells % 4.3H, Large Unclassified Cells # 0.4, Anion Gap 9, Glomerular Filtration Rate > 60.0, Blood Urea Nitrogen 22H, Creatinine 1.10, Sodium Level 139, Potassium Level 4.3, Chloride Level 102, Carbon Dioxide Level 28, Calcium Level 8.7 CBC/BMP Laboratory Tests 10/23/16 06:20 Red Blood Count 4.52, Mean Corpuscular Volume 89.9, Mean Corpuscular Hemoglobin 30.5, Mean Corpuscular Hemoglobin Concent 33.9, Red Cell Distribution Width 12.5 , Neutrophils (%) (Auto) 55.5, Lymphocytes (%) (Auto) 21.1 L, Monocytes (%) ( Auto) 12.8 H, Eosinophils (%) (Auto) 5.7 H, Basophils (%) (Auto) 0.5, Neutrophils # (Auto) 5.3, Lymphocytes # (Auto) 2.5, Monocytes # (Auto) 1.2 H, Eosinophils # (Auto) 0.6 H, Basophils # (Auto) 0.0, Calcium Level 8.7 Microbiology Microbiology 10/17/16 Blood Culture - Final, Complete 10/17/16 Blood Culture - Final, Complete 10/18/16 Gastrointestinal Tract Panel (PCR) - Final, Complete 10/18/16 Respiratory Virus Panel (PCR) ([facility]) - Final, Complete 10/17/16 Urine Culture - Final, Complete Discharge Medications Scheduled Amlodipine Besylate (Amlodipine Besylate) 5 Mg Tab, 5 MG PO DAILY Amoxicillin (Amoxicillin) 875 Mg Tab, 875 MG PO BID Aspirin (Aspir-81) 81 Mg Tab, 81 MG PO DAILY, (Reported) Calcium/Vitamin D (Calcium/Vitamin D 600-400 mg-Unit) 1 Tab Tab, 1 TAB PO BID, ( Reported) Chlorhexidine Gluconate (Peridex) 0.12 % Anjana, 15 ML SSP BID, (Reported) Chlorthalidone (Chlorthalidone) 25 Mg Tab, 25 MG PO DAILY Cholecalciferol (Vitamin D3) 5,000 Unit Tab, 5,000 UNIT PO DAILY, (Reported) Doxycycline Hyclate (Doxycycline Hyclate) 100 Mg Tab, 100 MG PO BID Levetiracetam (Keppra) 750 Mg Tab, 750 MG PO BID, (Reported) Loratadine (Claritin) 10 Mg Cap, 10 MG PO DAILY, (Reported) Multivitamins *[facility] STOCKED* (Thera M Plus *[facility] STOCKED*) 1 Tab Tab, 1 TAB PO DAILY, (Reported) Omeprazole (Omeprazole) 40 Mg Cap, 40 MG PO DAILY, (Reported) Oxybutynin Chloride (Ditropan Xl) 5 Mg Tab, 5 MG PO DAILY, (Reported) Phenobarbital (Phenobarbital) 32.4 Mg Tab, 32.4 MG PO TID, (Reported) Phenytoin Sodium (Dilantin) 100 Mg Cap, 100 MG PO BID, (Reported) Senna (Sennosides) 8.6 Mg Tab, 1 TAB PO QHS, (Reported) Zoledronic Acid (Reclast) 5 Mg/100 Ml Inj, 5 MG IV ASDIRECTED, (Reported) once yearly Scheduled PRN Triamcinolone Acet (Triamcinolone Acetonide 0.1% Crm) 1 Dose/15 Gm Cr, 1 DOSE TOP BID PRN for ECZEMA FLARE, (Reported) APPLIED TO FEET Allergies Coded Allergies: No Known Drug Allergy (Verified Allergy, Unknown, 09/26/16) Wade Natarajan MD Oct 23, 2016 2:17 pm
== END 2016-10-23 16:15 | disposition home or self-care (01) | DRG 178 ==
LOC: EDBD 12:19 → M ED 12:19 → M ED INP 18:17 → M PCU 20:25 → M MS4PR 10-20 20:06
PROVIDERS: ADMIT Hospitalist; ATTEND Family Medicine
DX: J15.212 Pneumonia due to Methicillin resistant Staphylococcus aureus (principal); F73 Profound intellectual disabilities; N17.9 Acute kidney failure, unspecified; G40.909 Epilepsy, unspecified, not intractable, without status epilepticus; K59.00 Constipation, unspecified; E87.6 Hypokalemia; I10 Essential (primary) hypertension; K21.9 Gastro-esophageal reflux disease without esophagitis; Z79.82 Long term (current) use of aspirin; Z79.899 Other long term (current) drug therapy; N32.81 Overactive bladder

== ENCOUNTER → 2017-01-20 | Outpatient (REF) | payer MEDICARE, MEDICAID ==
[~2017-01-20] MED LIST changes: +AMLO5TAB2 PO; +AMOX875T PO; +CALC1TAB74 PO; +CHLO25TA PO; +DOXY100T2 PO; +PERI0.126 SSP; +VITMTA PO
== END ==
LOC: M LABDRAW1 10:56
PROVIDERS: ATTEND Physician Assistant Medical
DX: R56.9 Unspecified convulsions (principal); Z51.81 Encounter for therapeutic drug level monitoring; Z79.899 Other long term (current) drug therapy

== ENCOUNTER 2017-02-19 11:57 | Emergency (ER) | payer MEDICARE, MEDICAID ==
[2017-02-19 13:24] LABS: KETONE, URINE AUTO RFX TRACE mg/dL (NEGATIVE); LEUKOCYTE ESTERASE UR AUTO RFX NEGATIVE (NEGATIVE); MUCUS, URINE RFX SMALL (NEGATIVE); NITRITE, URINE AUTO RFX NEGATIVE (NEGATIVE); RBC, URINE AUTO RFX 2 /HPF (0-3); SPECIFIC GRAVITY UR AUTO RFX 1.017 (1.002-1.035); SQUAM EPITHELIAL CELL UR AURFX 0 /HPF (0-6); WBC, URINE AUTO RFX 2 /HPF (0-3)
[2017-02-19 13:48] LABS: BASO % 0.1 % (0.0-1.0); HEMATOCRIT 40.7 % (42.0-52.0); HEMOGLOBIN 14.2 g/dl (14.0-18.0); IMMATURE GRANULOCYTE # 0.1 10^3/uL (0-0); IMMATURE GRANULOCYTE % 0.5 % (0-0); LYMPH % 4.6 % (24.0-44.0); MEAN CORPUSCULAR HEMOGLOBIN 30.7 pg (27.0-33.0); MEAN CORPUSCULAR HGB CONC 34.9 g/dl (32.0-36.5); MEAN CORPUSCULAR VOLUME 88.1 fl (80.0-96.0); MONO % 10.8 % (0.0-5.0); NEUTROPHILS # 19.1 10^3/uL (1.8-7.7); PLATELET COUNT, AUTOMATED 315 10^3/uL (150-450); RED BLOOD COUNT 4.62 10^6/uL (4.30-6.10); RED CELL DISTRIBUTION WIDTH 12.6 % (11.5-14.5); WHITE BLOOD COUNT 22.8 10^3/uL (4.0-10.0)
[2017-02-19 13:50] LABS: MONO # 2.5 10^3/uL (0.0-0.8); POSITIVE DIFF POS FLAG
[2017-02-19] MEDS: ONDANSETRON 4 MG ORAL DISINTEGRATING TAB (S0181) PO (14:04)
[2017-02-19 14:25] LABS: ANION GAP 9 MEQ/L (8-16); BLOOD UREA NITROGEN 25 MG/DL (7-18); C REACTIVE PROTEIN QUANTITATIV 0.88 MG/DL (0.00-0.30); CALCIUM LEVEL 10.5 MG/DL (8.5-10.1); CARBON DIOXIDE LEVEL 30 MEQ/L (21-32); CHLORIDE LEVEL 95 MEQ/L (98-107); CREATININE FOR GFR 0.96 MG/DL (0.70-1.30); GLOMERULAR FILTRATION RATE > 60.0 (>56); GLUCOSE, FASTING 175 MG/DL (70-105); POTASSIUM SERUM 3.8 MEQ/L (3.5-5.1); SODIUM LEVEL 134 MEQ/L (136-145)
[2017-02-19] MEDS ORDERED: ISOVUE-370 76% 100ML VIAL (Q9967) As Ordered (14:36)
[2017-02-19 14:42] LABS: ALKALINE PHOSPHATASE 116 U/L (45-117); ALT/SGPT 28 U/L (12-78); AMYLASE 444 U/L (25-115); AST/SGOT 16 U/L (7-37); BILIRUBIN,DIRECT < 0.1 MG/DL (0.0-0.2); BILIRUBIN,TOTAL 0.2 MG/DL (0.2-1.0); TOTAL PROTEIN 8.1 GM/DL (6.4-8.2)
[2017-02-19 14:53] LABS: ALBUMIN 4.3 GM/DL (3.2-5.2); LIPASE 87 U/L (73-393)
[2017-02-19 14:57] LABS: ALBUMIN/GLOBULIN RATIO 1.13 (1.00-1.93)
[2017-02-19] MEDS: NS 1,000 ML IV (15:16)
== END 2017-02-19 16:49 | disposition home or self-care (01) ==
LOC: M ED 11:57
DX: K59.00 Constipation, unspecified (principal); G40.909 Epilepsy, unspecified, not intractable, without status epilepticus; F79 Unspecified intellectual disabilities; G80.9 Cerebral palsy, unspecified; H54.8 Legal blindness, as defined in USA; Z79.82 Long term (current) use of aspirin; Z79.899 Other long term (current) drug therapy
CPT/HCPCS: Q9967

== ENCOUNTER → 2017-02-19 | Outpatient (REF) | payer MEDICARE, MEDICAID ==
[2017-02-19 12:34] LABS: BASO % 0.2 % (0.0-1.0); EOS # 0.1 10^3/uL (0.0-0.50); EOS % 0.6 % (0.0-3.0); HEMATOCRIT 40.2 % (42.0-52.0); HEMOGLOBIN 13.9 g/dl (14.0-18.0); IMMATURE GRANULOCYTE % 0.2 % (0-0); LYMPH # 1.7 10^3/uL (1.5-4.5); LYMPH % 18.7 % (24.0-44.0); MEAN CORPUSCULAR HEMOGLOBIN 30.4 pg (27.0-33.0); MEAN CORPUSCULAR HGB CONC 34.6 g/dl (32.0-36.5); MONO # 1.3 10^3/uL (0.0-0.8); MONO % 14.5 % (0.0-5.0); NEUTROPHILS % 65.8 % (36.0-66.0); PLATELET COUNT, AUTOMATED 295 10^3/uL (150-450); RED BLOOD COUNT 4.57 10^6/uL (4.30-6.10); RED CELL DISTRIBUTION WIDTH 12.5 % (11.5-14.5); WHITE BLOOD COUNT 9.1 10^3/uL (4.0-10.0)
[2017-02-19 12:45] LABS: ALBUMIN 4.1 GM/DL (3.2-5.2); ALBUMIN/GLOBULIN RATIO 1.11 (1.00-1.93); ALKALINE PHOSPHATASE 119 U/L (45-117); ALT/SGPT 25 U/L (12-78); ANION GAP 8 MEQ/L (8-16); AST/SGOT 18 U/L (7-37); BILIRUBIN,TOTAL 0.2 MG/DL (0.2-1.0); BLOOD UREA NITROGEN 22 MG/DL (7-18); CALCIUM LEVEL 9.7 MG/DL (8.5-10.1); CARBON DIOXIDE LEVEL 32 MEQ/L (21-32); CHLORIDE LEVEL 98 MEQ/L (98-107); CREATININE FOR GFR 0.84 MG/DL (0.70-1.30); GLOMERULAR FILTRATION RATE > 60.0 (>56); GLUCOSE, FASTING 95 MG/DL (70-105); MAGNESIUM LEVEL 2.5 MG/DL (1.8-2.4); PHENOBARBITAL LEVEL 29.1 UG/ML (15.0-40.0); PHENYTOIN (DILANTIN) 9.6 UG/ML (10.0-20.0); POTASSIUM SERUM 3.7 MEQ/L (3.5-5.1); SODIUM LEVEL 138 MEQ/L (136-145); TOTAL PROTEIN 7.8 GM/DL (6.4-8.2)
[2017-02-21 10:14] LABS: LEVETIRACETAM (KEPPRA) 45.9 ug/mL (10.0-40.0)
== END ==
LOC: M LABDRAW1 09:50
DX: G40.909 Epilepsy, unspecified, not intractable, without status epilepticus (principal)

== ENCOUNTER → 2017-03-02 | Outpatient (REF) | payer MEDICARE, MEDICAID ==
[2017-03-02 15:43] LABS: BASO % 0.3 % (0.0-1.0); EOS # 0.1 10^3/uL (0.0-0.50); HEMATOCRIT 39.3 % (42.0-52.0); HEMOGLOBIN 13.3 g/dl (14.0-18.0); IMMATURE GRANULOCYTE % 0.4 % (0-0); LYMPH # 1.9 10^3/uL (1.5-4.5); LYMPH % 27.7 % (24.0-44.0); MEAN CORPUSCULAR HEMOGLOBIN 30.4 pg (27.0-33.0); MEAN CORPUSCULAR HGB CONC 33.8 g/dl (32.0-36.5); MEAN CORPUSCULAR VOLUME 89.9 fl (80.0-96.0); MONO # 1.2 10^3/uL (0.0-0.8); MONO % 17.3 % (0.0-5.0); NEUTROPHILS # 3.6 10^3/uL (1.8-7.7); NEUTROPHILS % 53.3 % (36.0-66.0); PLATELET COUNT, AUTOMATED 340 10^3/uL (150-450); RED BLOOD COUNT 4.37 10^6/uL (4.30-6.10); RED CELL DISTRIBUTION WIDTH 12.4 % (11.5-14.5); WHITE BLOOD COUNT 6.8 10^3/uL (4.0-10.0)
[2017-03-02 15:48] LABS: ALBUMIN 3.7 GM/DL (3.2-5.2); ALKALINE PHOSPHATASE 107 U/L (45-117); ALT/SGPT 29 U/L (12-78); ANION GAP 9 MEQ/L (8-16); AST/SGOT 17 U/L (7-37); BILIRUBIN,TOTAL 0.1 MG/DL (0.2-1.0); BLOOD UREA NITROGEN 13 MG/DL (7-18); CALCIUM LEVEL 8.3 MG/DL (8.5-10.1); CARBON DIOXIDE LEVEL 27 MEQ/L (21-32); CHLORIDE LEVEL 102 MEQ/L (98-107); CREATININE FOR GFR 0.66 MG/DL (0.70-1.30); GLOMERULAR FILTRATION RATE > 60.0 (>56); GLUCOSE, FASTING 94 MG/DL (70-105); POTASSIUM SERUM 4.1 MEQ/L (3.5-5.1); SODIUM LEVEL 138 MEQ/L (136-145); TOTAL PROTEIN 7.4 GM/DL (6.4-8.2)
== END ==
LOC: M SFHCPLAZ 10:42
DX: I10 Essential (primary) hypertension (principal)
CPT/HCPCS: 80053

== ENCOUNTER → 2017-07-17 | Outpatient (REF) | payer MEDICARE, MEDICAID ==
[2017-07-17 12:52] LABS: PHENYTOIN (DILANTIN) 9.8 UG/ML (10.0-20.0)
[2017-07-17 12:52] LABS: PHENOBARBITAL LEVEL 25.6 UG/ML (15.0-40.0)
[2017-07-20 10:26] LABS: LEVETIRACETAM (KEPPRA) 40.7 ug/mL (10.0-40.0)
== END ==
LOC: M LABDRAW1 11:46
DX: G40.909 Epilepsy, unspecified, not intractable, without status epilepticus (principal)
CPT/HCPCS: 80185

== ENCOUNTER 2017-08-14 08:26 | Outpatient (CLI) | payer MEDICARE, MEDICAID ==
[2017-08-14] MEDS: ZOLEDRONIC ACID 5 MG in APPROPRIATE DILUENT 1 EA IV (08:57)
== END 2017-08-14 09:35 | disposition home or self-care (01) ==
LOC: M INFU 08:26
DX: M81.0 Age-related osteoporosis without current pathological fracture (principal); Z79.899 Other long term (current) drug therapy; Z79.82 Long term (current) use of aspirin
CPT/HCPCS: J3489

== ENCOUNTER → 2017-11-12 | Outpatient (REF) | payer MEDICARE, MEDICAID ==
[2017-11-12 12:18] LABS: BASO % 0.3 % (0.0-1.0); EOS # 0.1 10^3/uL (0.0-0.50); EOS % 1.3 % (0.0-3.0); HEMATOCRIT 39.7 % (42.0-52.0); HEMOGLOBIN 13.4 g/dl (13.5-17.5); IMMATURE GRANULOCYTE % 0.1 % (0-3.0); LYMPH # 2.2 10^3/uL (1.5-4.5); LYMPH % 31.8 % (24.0-44.0); MEAN CORPUSCULAR HEMOGLOBIN 28.8 pg (27.0-33.0); MEAN CORPUSCULAR HGB CONC 33.8 g/dl (32.0-36.5); MEAN CORPUSCULAR VOLUME 85.4 fl (80.0-96.0); MONO # 1.1 10^3/uL (0.0-0.8); MONO % 16.4 % (0.0-5.0); NEUTROPHILS # 3.4 10^3/uL (1.8-7.7); NEUTROPHILS % 50.1 % (36.0-66.0); PLATELET COUNT, AUTOMATED 283 10^3/uL (150-450); RED BLOOD COUNT 4.65 10^6/uL (4.30-6.10); RED CELL DISTRIBUTION WIDTH 13.3 % (11.5-14.5); WHITE BLOOD COUNT 6.8 10^3/uL (4.0-10.0)
[2017-11-12 14:15] LABS: ALBUMIN/GLOBULIN RATIO 1.05 (1.00-1.93); ALKALINE PHOSPHATASE 113 U/L (45-117); ALT/SGPT 26 U/L (12-78); ANION GAP 11 MEQ/L (8-16); AST/SGOT 16 U/L (7-37); BILIRUBIN,TOTAL 0.2 MG/DL (0.2-1.0); BLOOD UREA NITROGEN 15 MG/DL (7-18); CALCIUM LEVEL 8.8 MG/DL (8.5-10.1); CARBON DIOXIDE LEVEL 27 MEQ/L (21-32); CHLORIDE LEVEL 98 MEQ/L (98-107); CHOLESTEROL LEVEL 174 MG/DL (<200); CHOLESTEROL RISK RATIO 3.283 (<5); CREATININE FOR GFR 0.79 MG/DL (0.70-1.30); GLOMERULAR FILTRATION RATE > 60.0 (>56); GLUCOSE, FASTING 90 MG/DL (70-100); HDL CHOLESTEROL 53 MG/DL (>40); LDL CHOLESTEROL 99 MG/DL (<100); MAGNESIUM LEVEL 2.1 MG/DL (1.8-2.4); NON-HDL-C 121 MG/DL; PHENOBARBITAL LEVEL 30.3 UG/ML (15.0-40.0); PHENYTOIN (DILANTIN) 8.4 UG/ML (10.0-20.0); POTASSIUM SERUM 3.8 MEQ/L (3.5-5.1); PSA SCREENING 2.07 NG/ML (< 4.0); SODIUM LEVEL 136 MEQ/L (136-145); TOTAL PROTEIN 7.8 GM/DL (6.4-8.2); TRIGLYCERIDES LEVEL 108 MG/DL (<150)
== END ==
LOC: M LABDRAW1 11:36
DX: G40.909 Epilepsy, unspecified, not intractable, without status epilepticus (principal); I10 Essential (primary) hypertension; D64.9 Anemia, unspecified; Z12.5 Encounter for screening for malignant neoplasm of prostate
CPT/HCPCS: 80185

== ENCOUNTER → 2018-02-03 | Outpatient (REF) | payer MEDICARE, MEDICAID ==
[~2018-02-03] MED LIST changes: -AMLO5TAB2 PO; +AMLO5TAB4 PO; +ZITHTAB PO
[2018-02-03 12:39] LABS: PHENOBARBITAL LEVEL 28.3 UG/ML (15.0-40.0); PHENYTOIN (DILANTIN) 8.1 UG/ML (10.0-20.0)
== END ==
LOC: M LABDRAW1 09:10
PROVIDERS: ATTEND Physician Assistant Medical
DX: R56.9 Unspecified convulsions (principal); Z51.81 Encounter for therapeutic drug level monitoring; Z79.899 Other long term (current) drug therapy

== ENCOUNTER → 2018-04-16 | Outpatient (REF) | payer MEDICARE, MEDICAID ==
[~2018-04-16] MED LIST changes: -AMLO5TAB4 PO; +AMLO5TAB6 PO
[2018-04-16 11:53] LABS: BASO % 0.3 % (0.0-1.0); EOS # 0.1 10^3/uL (0.0-0.50); EOS % 1.6 % (0.0-3.0); HEMATOCRIT 37.7 % (42.0-52.0); LYMPH # 2.2 10^3/uL (1.5-4.5); MEAN CORPUSCULAR HEMOGLOBIN 28.1 pg (27.0-33.0); MEAN CORPUSCULAR HGB CONC 34.5 g/dl (32.0-36.5); MEAN CORPUSCULAR VOLUME 81.4 fl (80.0-96.0); MONO # 1.2 10^3/uL (0.0-0.8); MONO % 19.4 % (0.0-5.0); NEUTROPHILS # 2.7 10^3/uL (1.8-7.7); NEUTROPHILS % 43.4 % (36.0-66.0); PLATELET COUNT, AUTOMATED 294 10^3/uL (150-450); RED BLOOD COUNT 4.63 10^6/uL (4.30-6.10); WHITE BLOOD COUNT 6.2 10^3/uL (4.0-10.0)
[2018-04-16 12:18] LABS: ALBUMIN 3.7 GM/DL (3.2-5.2); ALT/SGPT 27 U/L (12-78); BILIRUBIN,TOTAL 0.3 MG/DL (0.2-1.0); BLOOD UREA NITROGEN 11 MG/DL (7-18); CALCIUM LEVEL 8.5 MG/DL (8.5-10.1); CARBON DIOXIDE LEVEL 27 MEQ/L (21-32); CHLORIDE LEVEL 94 MEQ/L (98-107); CREATININE FOR GFR 0.61 MG/DL (0.70-1.30); GLOMERULAR FILTRATION RATE > 60.0 (>56); GLUCOSE, FASTING 79 MG/DL (70-100); POTASSIUM SERUM 3.5 MEQ/L (3.5-5.1); PTH INTACT 29.1 PG/ML (18.5-88.0); SODIUM LEVEL 132 MEQ/L (136-145); TOTAL 25(OH) VITAMIN D 90.8 NG/ML (30.0-100.0); TOTAL PROTEIN 7.6 GM/DL (6.4-8.2)
[2018-04-16 12:44] LABS: ERYTHROCYTE SEDIMENTATION RATE 20 mm/hr (0-20)
== END ==
LOC: M LABDRAW1 09:21
PROVIDERS: ATTEND Family Medicine
DX: Z12.5 Encounter for screening for malignant neoplasm of prostate (principal); G40.909 Epilepsy, unspecified, not intractable, without status epilepticus; D64.9 Anemia, unspecified; E55.9 Vitamin D deficiency, unspecified
CPT/HCPCS: 36415; 80053; 82306; 83970; 85025; 85652; 86335; G0103

== ENCOUNTER → 2018-06-22 | Outpatient (CLI) | payer MEDICARE, MEDICAID ==
[~2018-06-22] MED LIST changes: +TRIA0.1C60 TOP; -TRIA1CR TOP
--- NOTE | 2018-06-25 08:53 | DEXA ---
AP SPINE L1 - L4 1.130 -0.5 -0.6 LT FEMUR TOTAL 0.834 -1.4 -1.4 LT NECK 0.685 -2.5 -2.2 RT FEMUR TOTAL 0.844 -1.3 -1.4 RT NECK 0.849 -1.4 -0.9 TOTAL BODY TOTAL OTHER COMMENTS: Normal bone densitometry of the spine. There is low bone density of the hips. The decreased density of the spine does represent a significant change. The increased density of the left hip does represent a significant change. The increased density of the right hip does represent significant change. The density of the spine has increased 8.5% since the initial exam on 02/20/2010. The spine density has decreased 2.2% since the most recent exam on 06/20/2016. The density of the left hip has increased 18.6% since the initial exam on 02/20/2010. The density of the left hip has increased 18.0% since the most recent exam on 06/20/2016. The density of the right hip has increased 15.0% since the initial exam on 02/20/2010. The density of the right hip has increased 4.6% since the most recent exam on 06/20/2016. FOLLOW-UP: Recommendation for the next bone density exam: 2 years. JEANIE
== END ==
LOC: M WHC 09:27
PROVIDERS: ATTEND Family Medicine
DX: M81.0 Age-related osteoporosis without current pathological fracture (principal)

== ENCOUNTER → 2018-07-08 | Outpatient (REF) | payer MEDICARE, MEDICAID ==
[~2018-07-08] MED LIST changes: +BACL10TA2 PO; +MIRA3350 PO
[2018-07-08 16:06] LABS: BASO % 0.2 % (0.0-1.0); EOS # 0.1 10^3/uL (0.0-0.50); EOS % 0.9 % (0.0-3.0); HEMATOCRIT 39.4 % (42.0-52.0); HEMOGLOBIN 13.1 g/dl (13.5-17.5); LYMPH # 1.7 10^3/uL (1.5-4.5); LYMPH % 15.1 % (24.0-44.0); MEAN CORPUSCULAR HEMOGLOBIN 28.2 pg (27.0-33.0); MEAN CORPUSCULAR HGB CONC 33.2 g/dl (32.0-36.5); MEAN CORPUSCULAR VOLUME 84.7 fl (80.0-96.0); MONO # 1.1 10^3/uL (0.0-0.8); MONO % 10.2 % (0.0-5.0); NEUTROPHILS # 8.1 10^3/uL (1.8-7.7); NEUTROPHILS % 73.4 % (36.0-66.0); PLATELET COUNT, AUTOMATED 236 10^3/uL (150-450); RED BLOOD COUNT 4.65 10^6/uL (4.30-6.10)
[2018-07-08 16:13] LABS: ALBUMIN 3.7 GM/DL (3.2-5.2); ALT/SGPT 25 U/L (12-78); BILIRUBIN,TOTAL 0.2 MG/DL (0.2-1.0); BLOOD UREA NITROGEN 14 MG/DL (7-18); CALCIUM LEVEL 8.7 MG/DL (8.5-10.1); CARBON DIOXIDE LEVEL 28 MEQ/L (21-32); CHLORIDE LEVEL 98 MEQ/L (98-107); CREATININE FOR GFR 0.63 MG/DL (0.70-1.30); GLOMERULAR FILTRATION RATE > 60.0 (>56); GLUCOSE, FASTING 83 MG/DL (70-100); PHENYTOIN (DILANTIN) 10.7 UG/ML (10.0-20.0); POTASSIUM SERUM 3.9 MEQ/L (3.5-5.1); SODIUM LEVEL 134 MEQ/L (136-145); TOTAL PROTEIN 7.9 GM/DL (6.4-8.2)
[2018-07-08 16:23] LABS: INR 0.97
[2018-07-08 16:24] LABS: PARTIAL THROMBOPLASTIN TIME 35.6 SECONDS (25.4-37.6)
== END ==
LOC: M SFHCPLAZ 12:49
PROVIDERS: ATTEND Family Medicine
DX: G40.909 Epilepsy, unspecified, not intractable, without status epilepticus (principal); G81.94 Hemiplegia, unspecified affecting left nondominant side
CPT/HCPCS: 36415; 80053; 80180; 80185; 85025; 85610; 85730; 93005; G0463

== ENCOUNTER 2018-08-13 09:12 | Outpatient (CLI) | payer MEDICARE, MEDICAID ==
[~2018-08-13] VITALS: Ht 147.3 cm; Wt 60.9 kg
[~2018-08-13 09:12] MED LIST changes: -OMEP40CA2 PO; +OMEP40CA97 PO
[2018-08-13 09:31] VITALS: BP 154/92
[2018-08-13 10:00] VITALS: BP 164/94
[2018-08-13] MEDS ORDERED: ZOLEDRONIC ACID 5 MG in IV 1 EA IV ONE (10:00)
== END 2018-08-13 10:20 | disposition home or self-care (01) ==
LOC: M INFU 09:12
PROVIDERS: ATTEND Family Medicine
DX: M81.0 Age-related osteoporosis without current pathological fracture (principal)
CPT/HCPCS: 96365; J3489

== ENCOUNTER → 2018-09-16 | Outpatient (REF) | payer MEDICARE, MEDICAID ==
[~2018-09-16] MED LIST changes: +OMEP40CA2 PO; -OMEP40CA97 PO
[2018-09-16 12:36] LABS: PHENOBARBITAL LEVEL 26.5 UG/ML (15.0-40.0); PHENYTOIN (DILANTIN) 7.2 UG/ML (10.0-20.0)
== END ==
LOC: M LABDRAW1 08:43
PROVIDERS: ATTEND Physician Assistant Medical
DX: G40.909 Epilepsy, unspecified, not intractable, without status epilepticus (principal)

== ENCOUNTER → 2018-10-12 | Outpatient (REF) | payer MEDICARE, MEDICAID ==
[2018-10-12 13:43] LABS: BASO % 0.2 % (0.0-1.0); EOS # 0.1 10^3/uL (0.0-0.50); EOS % 1.5 % (0.0-3.0); HEMATOCRIT 38.7 % (42.0-52.0); HEMOGLOBIN 13.1 g/dl (13.5-17.5); LYMPH # 1.6 10^3/uL (1.5-4.5); LYMPH % 27.7 % (24.0-44.0); MEAN CORPUSCULAR HEMOGLOBIN 29.3 pg (27.0-33.0); MEAN CORPUSCULAR HGB CONC 33.9 g/dl (32.0-36.5); MEAN CORPUSCULAR VOLUME 86.6 fl (80.0-96.0); MONO # 1.1 10^3/uL (0.0-0.8); MONO % 17.7 % (0.0-5.0); NEUTROPHILS # 3.1 10^3/uL (1.8-7.7); NEUTROPHILS % 52.7 % (36.0-66.0); PLATELET COUNT, AUTOMATED 297 10^3/uL (150-450); RED BLOOD COUNT 4.47 10^6/uL (4.30-6.10); WHITE BLOOD COUNT 5.9 10^3/uL (4.0-10.0)
[2018-10-12 14:05] LABS: ALBUMIN 3.7 GM/DL (3.2-5.2); ALT/SGPT 24 U/L (12-78); BILIRUBIN,TOTAL 0.2 MG/DL (0.2-1.0); BLOOD UREA NITROGEN 12 MG/DL (7-18); CALCIUM LEVEL 9.3 MG/DL (8.5-10.1); CARBON DIOXIDE LEVEL 29 MEQ/L (21-32); CHLORIDE LEVEL 97 MEQ/L (98-107); CREATININE FOR GFR 0.64 MG/DL (0.70-1.30); GLOMERULAR FILTRATION RATE > 60.0 (>56); GLUCOSE, FASTING 81 MG/DL (70-100); POTASSIUM SERUM 3.9 MEQ/L (3.5-5.1); PTH INTACT 19.2 PG/ML (18.5-88.0); SODIUM LEVEL 134 MEQ/L (136-145); TOTAL 25(OH) VITAMIN D 91.3 NG/ML (30.0-100.0); TOTAL PROTEIN 7.7 GM/DL (6.4-8.2)
== END ==
LOC: M SFHCPLAZ 10:59
PROVIDERS: ATTEND Family Medicine
DX: D64.9 Anemia, unspecified (principal); E55.9 Vitamin D deficiency, unspecified; Z12.5 Encounter for screening for malignant neoplasm of prostate
CPT/HCPCS: 36415; 80053; 82306; 82668; 83970; 85025; 86335; G0103; G0463

== ENCOUNTER → 2018-10-19 | Outpatient (CLI) | payer MEDICARE, MEDICAID ==
[~2018-10-19] MED LIST changes: +PROPOFOL 200 MG/20 ML VIAL ONE; +ePHEDrine SULFATE 25 MG/5 ML(5MG/ML) SYRINGE ONE
[2018-10-19 11:55] VITALS: BP 144/99
--- NOTE | 2018-10-19 13:14 | REP ---
MRI brain without contrast: History: History of seizures. Epilepsy. Comparison CT study is from October 17, 2016 and May 28, 2016. Technique: Axial and sagittal imaging planes are utilized for T1 and T2-weighted scans. Sequences include spin-echo, fast spin echo, FLAIR, and diffusion weighted sequences. MRI findings: No bony calvarial defect is seen. The bony calvarium is diffusely thickened as seen on CT. Craniocervical junction is unremarkable. Incidental note is made of what appears to be divergent gaze reflected by position of the ocular globes. There is mucosal thickening affecting the right maxillary sinus. The occipital horns of the lateral ventricles are again noted to be markedly dilated with significant cortical thinning of the occipital lobes bilaterally as seen on CT. There are multiple areas of encephalomalacia in the subcortical white matter of the frontal lobes and parietal lobes bilaterally as well consistent with old infarcts. There are old lacunar infarcts in the basal ganglia bilaterally. These are similar to the prior CT study findings. There is no evidence of intracranial hemorrhage. Diffusion weighted scans show no evidence of restricted diffusion to suggest acute ischemia. No extra-axial fluid collection is seen. Impression: Multiple old lacunar infarcts in the basal ganglia bilaterally. Areas of old encephalomalacia in the periventricular and subcortical white matter of the frontal lobes and to a lesser extent parietal lobes bilaterally. Markedly dilated occipital horns with temporo-occipital atrophy changes. Findings unchanged from comparison CT. No evidence of hemorrhage or mass. No acute infarction is seen. Electronically Signed by Karel Glynn MD 10/19/2018 01:45 P
== END ==
LOC: M RAD 09:20
PROVIDERS: ATTEND Physician Assistant Medical
DX: G40.309 Generalized idiopathic epilepsy and epileptic syndromes, not intractable, without status epilepticus (principal); R53.1 Weakness; Z86.73 Personal history of transient ischemic attack (TIA), and cerebral infarction without residual deficits; G93.89 Other specified disorders of brain

== ENCOUNTER → 2018-12-03 | Outpatient (CLI) | payer MEDICARE, MEDICAID ==
[~2018-12-03] MED LIST changes: -OMEP40CA2 PO; +OMEP40CA97 PO; -PROPOFOL 200 MG/20 ML VIAL ONE; -ePHEDrine SULFATE 25 MG/5 ML(5MG/ML) SYRINGE ONE
--- NOTE | 2018-12-03 13:48 | REP ---
Two-view chest: 12/04/2018. Indication: Dyspnea. Comparison: 02/19/2017. Findings: Increased density is noted within the right lung/middle lobe. There is no pleural effusion or pneumothorax. The left lung is clear. Scoliosis is redemonstrated. Cardiac silhouette is unremarkable. Impression: Right middle lobe pneumonia. Electronically Signed by Castro Live DO 12/03/2018 01:40 P
== END ==
LOC: M SMT 13:05
PROVIDERS: ATTEND Physician Assistant Medical
DX: J18.1 Lobar pneumonia, unspecified organism (principal); R06.02 Shortness of breath
CPT/HCPCS: 71046; 80053; 85025; 85379; 86140; G0463

== ENCOUNTER → 2018-12-03 | Outpatient (REF) | payer MEDICARE, MEDICAID ==
[2018-12-03 13:34] LABS: BASO % 0.1 % (0.0-1.0); HEMATOCRIT 39.5 % (42.0-52.0); HEMOGLOBIN 13.3 g/dl (13.5-17.5); LYMPH # 1.1 10^3/uL (1.5-5.0); LYMPH % 5.2 % (24.0-44.0); MEAN CORPUSCULAR HEMOGLOBIN 28.7 pg (27.0-33.0); MEAN CORPUSCULAR HGB CONC 33.7 g/dl (32.0-36.5); MEAN CORPUSCULAR VOLUME 85.1 fl (80.0-96.0); MONO % 10.1 % (0.0-5.0); NEUTROPHILS # 18.1 10^3/uL (1.5-8.5); NEUTROPHILS % 84.3 % (36.0-66.0); PLATELET COUNT, AUTOMATED 316 10^3/uL (150-450); RED BLOOD COUNT 4.64 10^6/uL (4.30-6.10); WHITE BLOOD COUNT 21.5 10^3/uL (4.0-10.0)
[2018-12-03 13:56] LABS: ALBUMIN 3.9 GM/DL (3.2-5.2); ALT/SGPT 24 U/L (12-78); BILIRUBIN,TOTAL 0.6 MG/DL (0.2-1.0); BLOOD UREA NITROGEN 13 MG/DL (7-18); C REACTIVE PROTEIN QUANTITATIV 2.19 MG/DL (0.00-0.30); CALCIUM LEVEL 9.3 MG/DL (8.5-10.1); CARBON DIOXIDE LEVEL 28 MEQ/L (21-32); CHLORIDE LEVEL 96 MEQ/L (98-107); CREATININE FOR GFR 0.66 MG/DL (0.70-1.30); GLOMERULAR FILTRATION RATE > 60.0 (>56); GLUCOSE, FASTING 83 MG/DL (70-100); SODIUM LEVEL 132 MEQ/L (136-145); TOTAL PROTEIN 7.7 GM/DL (6.4-8.2)
[2018-12-03 13:57] LABS: MONO # 2.2 10^3/uL (0.0-0.8)
== END ==
LOC: M SFHCPLAZ 12:14
PROVIDERS: ATTEND Physician Assistant Medical
DX: R06.02 Shortness of breath (principal)

== ENCOUNTER → 2018-12-08 | Outpatient (REF) | payer MEDICARE, MEDICAID ==
[2018-12-08 10:57] LABS: BASO % 0.3 % (0.0-1.0); EOS # 0.1 10^3/uL (0.0-0.5); HEMATOCRIT 39.8 % (42.0-52.0); HEMOGLOBIN 13.5 g/dl (13.5-17.5); LYMPH # 1.8 10^3/uL (1.5-5.0); LYMPH % 19.8 % (24.0-44.0); MEAN CORPUSCULAR HEMOGLOBIN 29.5 pg (27.0-33.0); MEAN CORPUSCULAR HGB CONC 33.9 g/dl (32.0-36.5); MEAN CORPUSCULAR VOLUME 87.1 fl (80.0-96.0); MONO # 1.6 10^3/uL (0.0-0.8); MONO % 17.7 % (0.0-5.0); NEUTROPHILS # 5.5 10^3/uL (1.5-8.5); NEUTROPHILS % 60.9 % (36.0-66.0); PLATELET COUNT, AUTOMATED 308 10^3/uL (150-450); RED BLOOD COUNT 4.57 10^6/uL (4.30-6.10)
[2018-12-08 11:21] LABS: ALBUMIN 3.5 GM/DL (3.2-5.2); ALT/SGPT 22 U/L (12-78); BILIRUBIN,TOTAL 0.3 MG/DL (0.2-1.0); BLOOD UREA NITROGEN 14 MG/DL (7-18); CARBON DIOXIDE LEVEL 31 MEQ/L (21-32); CHLORIDE LEVEL 96 MEQ/L (98-107); CREATININE FOR GFR 0.72 MG/DL (0.70-1.30); GLOMERULAR FILTRATION RATE > 60.0 (>56); GLUCOSE, FASTING 66 MG/DL (70-100); SODIUM LEVEL 134 MEQ/L (136-145); TOTAL PROTEIN 7.6 GM/DL (6.4-8.2)
== END ==
LOC: M SFHCPLAZ 09:28
PROVIDERS: ATTEND Physician Assistant Medical
DX: J18.1 Lobar pneumonia, unspecified organism (principal)
CPT/HCPCS: 36415; 80053; 85025; G0463

== ENCOUNTER → 2018-12-20 | Outpatient (CLI) | payer MEDICARE, MEDICAID ==
--- NOTE | 2018-12-20 15:39 | REP ---
Three views chest: 12/20/2018. Indication: Pneumonia. Comparison: 12/03/2018. Findings: There is improved aeration of the right middle lobe without significant residual pneumonia detected. There is no pleural effusion or pneumothorax. Impression: Resolution of the previously described right middle lobe pneumonia. Electronically Signed by Castro Live DO 12/20/2018 11:08 A
== END ==
LOC: M WUC 09:30
PROVIDERS: ATTEND Physician Assistant Medical
DX: J18.1 Lobar pneumonia, unspecified organism (principal)

== ENCOUNTER 2019-01-14 09:22 | Emergency (ER) | payer MEDICARE, MEDICAID ==
[~2019-01-14] VITALS: Ht 149.9 cm; Wt 62.3 kg
[2019-01-14 09:23] VITALS: BP 172/102
[2019-01-14] MEDS ORDERED: KEFL500C17 (09:29)
[2019-01-14] MEDS ORDERED: LIDOCAINE 2% W/EPIN INJ 20ML **PRES FREE INJ ONE (10:00)
[2019-01-14] MEDS ORDERED: KEFL500C17 PO (10:21)
== END 2019-01-14 10:25 | disposition home or self-care (01) ==
LOC: EEVIPCON 09:22 → M ED 09:22
DX: L02.413 Cutaneous abscess of right upper limb (principal); L03.113 Cellulitis of right upper limb; Z79.82 Long term (current) use of aspirin; Z79.899 Other long term (current) drug therapy

== ENCOUNTER → 2019-03-11 | Outpatient (REF) | payer MEDICARE, MEDICAID ==
[~2019-03-11] MED LIST changes: +KEFL500C17; +KEFL500C17 PO
== END ==
LOC: M LAB REF 13:20
PROVIDERS: ATTEND Physician Assistant
DX: L02.411 Cutaneous abscess of right axilla (principal)

== ENCOUNTER → 2019-03-15 | Outpatient (REF) | payer MEDICARE, MEDICAID ==
[2019-03-15 13:21] LABS: PHENYTOIN (DILANTIN) 8.7 UG/ML (10.0-20.0)
== END ==
LOC: M LABDRAW1 11:54
PROVIDERS: ATTEND Physician Assistant Medical
DX: G40.909 Epilepsy, unspecified, not intractable, without status epilepticus (principal); Z51.81 Encounter for therapeutic drug level monitoring; E55.9 Vitamin D deficiency, unspecified; G81.94 Hemiplegia, unspecified affecting left nondominant side

== ENCOUNTER → 2019-03-15 | Outpatient (REF) | payer MEDICARE, MEDICAID ==
[2019-03-15 13:16] LABS: BASO % 0.3 % (0.0-1.0); EOS # 0.1 10^3/uL (0.0-0.5); EOS % 0.9 % (0.0-3.0); HEMATOCRIT 39.1 % (42.0-52.0); HEMOGLOBIN 12.9 g/dl (13.5-17.5); LYMPH # 1.7 10^3/uL (1.5-5.0); LYMPH % 22.5 % (24.0-44.0); MEAN CORPUSCULAR HEMOGLOBIN 28.7 pg (27.0-33.0); MEAN CORPUSCULAR VOLUME 86.9 fl (80.0-96.0); MONO # 1.3 10^3/uL (0.0-0.8); MONO % 16.6 % (0.0-5.0); NEUTROPHILS # 4.5 10^3/uL (1.5-8.5); NEUTROPHILS % 59.4 % (36.0-66.0); PLATELET COUNT, AUTOMATED 291 10^3/uL (150-450); WHITE BLOOD COUNT 7.5 10^3/uL (4.0-10.0)
[2019-03-15 13:43] LABS: ALBUMIN 3.6 GM/DL (3.2-5.2); ALT/SGPT 22 U/L (12-78); BILIRUBIN,TOTAL 0.2 MG/DL (0.2-1.0); BLOOD UREA NITROGEN 13 MG/DL (7-18); CALCIUM LEVEL 8.9 MG/DL (8.5-10.1); CARBON DIOXIDE LEVEL 30 MEQ/L (21-32); CHLORIDE LEVEL 99 MEQ/L (98-107); CREATININE FOR GFR 0.61 MG/DL (0.70-1.30); GLOMERULAR FILTRATION RATE > 60.0 (>56); GLUCOSE, FASTING 85 MG/DL (70-100); PHENOBARBITAL LEVEL 29.1 UG/ML (15.0-40.0); PHENYTOIN (DILANTIN) 8.8 UG/ML (10.0-20.0); POTASSIUM SERUM 3.7 MEQ/L (3.5-5.1); SODIUM LEVEL 135 MEQ/L (136-145); TOTAL PROTEIN 7.5 GM/DL (6.4-8.2)
[2019-03-15 13:50] LABS: TOTAL 25(OH) VITAMIN D 81.9 NG/ML (30.0-100.0)
[2019-03-15 13:51] LABS: PTH INTACT 23.1 PG/ML (18.5-88.0)
== END ==
LOC: M LABDRAW1 11:48
PROVIDERS: ATTEND Family Medicine
DX: E55.9 Vitamin D deficiency, unspecified (principal); G40.909 Epilepsy, unspecified, not intractable, without status epilepticus; G81.94 Hemiplegia, unspecified affecting left nondominant side

== ENCOUNTER → 2019-07-01 | Outpatient (CLI) | payer MEDICARE, MEDICAID ==
[2019-07-01 16:29] LABS: BASO % 0.2 % (0.0-1.0); HEMOGLOBIN 12.9 g/dl (13.5-17.5); LYMPH # 1.2 10^3/uL (1.5-5.0); LYMPH % 4.8 % (24.0-44.0); MEAN CORPUSCULAR HEMOGLOBIN 28.5 pg (27.0-33.0); MEAN CORPUSCULAR HGB CONC 33.1 g/dl (32.0-36.5); MEAN CORPUSCULAR VOLUME 86.3 fl (80.0-96.0); MONO # 1.9 10^3/uL (0.0-0.8); MONO % 7.5 % (0.0-5.0); NEUTROPHILS # 21.9 10^3/uL (1.5-8.5); NEUTROPHILS % 86.8 % (36.0-66.0); PLATELET COUNT, AUTOMATED 233 10^3/uL (150-450); RED BLOOD COUNT 4.52 10^6/uL (4.30-6.10); WHITE BLOOD COUNT 25.2 10^3/uL (4.0-10.0)
[2019-07-01 16:48] LABS: ALBUMIN 3.2 GM/DL (3.2-5.2); ALT/SGPT 107 U/L (12-78); BILIRUBIN,TOTAL 0.6 MG/DL (0.2-1.0); BLOOD UREA NITROGEN 21 MG/DL (7-18); CALCIUM LEVEL 8.8 MG/DL (8.5-10.1); CARBON DIOXIDE LEVEL 31 MEQ/L (21-32); CHLORIDE LEVEL 96 MEQ/L (98-107); CREATININE FOR GFR 0.78 MG/DL (0.70-1.30); GLOMERULAR FILTRATION RATE > 60.0 (>56); GLUCOSE, FASTING 105 MG/DL (70-100); POTASSIUM SERUM 3.5 MEQ/L (3.5-5.1); SODIUM LEVEL 134 MEQ/L (136-145); TOTAL PROTEIN 7.6 GM/DL (6.4-8.2)
[2019-07-01 18:06] LABS: ERYTHROCYTE SEDIMENTATION RATE 63 mm/hr (0-20)
== END ==
LOC: M LAB 15:41
PROVIDERS: ATTEND Physician Assistant Medical
DX: R11.10 Vomiting, unspecified (principal); R50.9 Fever, unspecified; Z11.59 Encounter for screening for other viral diseases
CPT/HCPCS: 36415; 80053; 83605; 84145; 85025; 85652; 86140; 87804; G0463

== ENCOUNTER → 2019-07-01 | Outpatient (CLI) | payer MEDICARE, MEDICAID ==
[~2019-07-01] MED LIST changes: +AMLO1TAB24 PO; +AMLO2.5T3 PO; -AMLO5TAB6 PO; +ASPI81TA26 PO; -ASPI81TA85 PO; +ASPI81TA86 PO; +BISAC5TA PO; +CALC-212 PO; -CALC600T7 PO; +D3 S1CAP PO; +DIAZ5TAB PO; +GNP8.6TA PO; +KEPP10002 PO; +LANS30CA93 PO; +LEVO750T13 PO; +MONT10TA10 PO; +PERI12LIQ PO; +SENN-52 PO
== END ==
LOC: M PLAIMG 14:20 → M RAD 16:15 → M PLAIMG 16:15
PROVIDERS: ATTEND Physician Assistant Medical
DX: R50.9 Fever, unspecified (principal); Z11.59 Encounter for screening for other viral diseases
CPT/HCPCS: 36415; 80053; 83605; 84145; 85025; 85652; 86140; 87486; 87581; 87633; 87798; 87804; G0463; U0003

== ENCOUNTER → 2019-07-01 | Outpatient (REF) | payer MEDICARE, MEDICAID ==
[~2019-07-01] MED LIST changes: -AMLO1TAB24 PO; -AMLO2.5T3 PO; +AMLO5TAB6 PO; -ASPI81TA26 PO; +ASPI81TA85 PO; -ASPI81TA86 PO; -BISAC5TA PO; -CALC-212 PO; +CALC600T7 PO; -D3 S1CAP PO; -DIAZ5TAB PO; -GNP8.6TA PO; -KEPP10002 PO; -LANS30CA93 PO; -LEVO750T13 PO; -MONT10TA10 PO; -PERI12LIQ PO; -SENN-52 PO
== END ==
LOC: M SFHCPLAZ 14:18
PROVIDERS: ATTEND Physician Assistant Medical
DX: R50.9 Fever, unspecified (principal); R11.10 Vomiting, unspecified; Z11.59 Encounter for screening for other viral diseases
CPT/HCPCS: 87486; 87581; 87633; 87798; U0003

== ENCOUNTER → 2019-07-07 | Outpatient (CLI) | payer MEDICARE, MEDICAID ==
[2019-07-07 10:57] LABS: HEMATOCRIT 40.4 % (42.0-52.0); HEMOGLOBIN 13.6 g/dl (13.5-17.5); MEAN CORPUSCULAR HEMOGLOBIN 28.5 pg (27.0-33.0); MEAN CORPUSCULAR HGB CONC 33.7 g/dl (32.0-36.5); MEAN CORPUSCULAR VOLUME 84.7 fl (80.0-96.0); PLATELET COUNT, AUTOMATED 409 10^3/uL (150-450); RED BLOOD COUNT 4.77 10^6/uL (4.30-6.10); WHITE BLOOD COUNT 10.3 10^3/uL (4.0-10.0)
[2019-07-07 11:19] LABS: ALBUMIN 3.1 GM/DL (3.2-5.2); ALT/SGPT 89 U/L (12-78); BILIRUBIN,TOTAL 0.3 MG/DL (0.2-1.0); BLOOD UREA NITROGEN 13 MG/DL (7-18); C REACTIVE PROTEIN QUANTITATIV 5.66 MG/DL (0.00-0.30); CALCIUM LEVEL 9.4 MG/DL (8.5-10.1); CARBON DIOXIDE LEVEL 31 MEQ/L (21-32); CHLORIDE LEVEL 98 MEQ/L (98-107); CREATININE FOR GFR 0.74 MG/DL (0.70-1.30); GLOMERULAR FILTRATION RATE > 60.0 (>56); GLUCOSE, FASTING 131 MG/DL (70-100); POTASSIUM SERUM 3.9 MEQ/L (3.5-5.1); SODIUM LEVEL 137 MEQ/L (136-145); TOTAL PROTEIN 7.9 GM/DL (6.4-8.2)
[2019-07-07 11:28] LABS: ATYPICAL LYMPH 2 % (0-5); BASOPHILS 1 % (0-1); EOSINOPHILS 1 % (0-3); LYMPHOCYTES 26 % (16-44); MONOCYTES 14 % (0-5); NEUTROPHILS 56 % (28-66); PLATELET ESTIMATE NORMAL (NORMAL)
[2019-07-07 11:30] LABS: ERYTHROCYTE SEDIMENTATION RATE 57 mm/hr (0-20)
== END ==
LOC: M LAB 09:08
PROVIDERS: ATTEND Family Medicine
DX: J10.1 Influenza due to other identified influenza virus with other respiratory manifestations (principal)

== ENCOUNTER → 2019-07-14 | Outpatient (CLI) | payer MEDICARE, MEDICAID ==
[2019-07-14 10:40] LABS: ALBUMIN 3.4 GM/DL (3.2-5.2); ALT/SGPT 58 U/L (12-78); BILIRUBIN,TOTAL 0.2 MG/DL (0.2-1.0); BLOOD UREA NITROGEN 12 MG/DL (7-18); CALCIUM LEVEL 9.4 MG/DL (8.5-10.1); CARBON DIOXIDE LEVEL 29 MEQ/L (21-32); CHLORIDE LEVEL 102 MEQ/L (98-107); CREATININE FOR GFR 0.78 MG/DL (0.70-1.30); GLOMERULAR FILTRATION RATE > 60.0 (>56); GLUCOSE, FASTING 90 MG/DL (70-100); PHENYTOIN (DILANTIN) 4.7 UG/ML (10.0-20.0); POTASSIUM SERUM 4.7 MEQ/L (3.5-5.1); SODIUM LEVEL 140 MEQ/L (136-145)
[2019-07-14 11:35] LABS: PTH INTACT 10.1 PG/ML (18.5-88.0); TOTAL 25(OH) VITAMIN D 104.8 NG/ML (30.0-100.0)
== END ==
LOC: M LAB 09:02
PROVIDERS: ATTEND Family Medicine
DX: E55.9 Vitamin D deficiency, unspecified (principal); G40.909 Epilepsy, unspecified, not intractable, without status epilepticus; Z12.5 Encounter for screening for malignant neoplasm of prostate; Z79.899 Other long term (current) drug therapy
CPT/HCPCS: 36415; 80053; 80180; 80184; 80185; 82306; 83970; G0103

== ENCOUNTER → 2019-08-09 | Outpatient (CLI) | payer MEDICARE, MEDICAID | LOC: M LAB 07:45 | PROVIDERS: ATTEND Physician Assistant Medical | DX: G40.909 Epilepsy, unspecified, not intractable, without status epilepticus (principal) ==

== ENCOUNTER → 2019-08-10 | Outpatient (REF) | payer MEDICARE, MEDICAID ==
[~2019-08-10] MED LIST changes: +AMLO1TAB24 PO; -AMLO5TAB6 PO; -ASPI81TA85 PO; +ASPI81TA86 PO; +CALC-212 PO; -CALC600T7 PO
[2019-08-10 15:25] LABS: BASO % 0.3 % (0.0-1.0); EOS # 0.1 10^3/uL (0.0-0.5); EOS % 0.4 % (0.0-3.0); HEMATOCRIT 42.2 % (42.0-52.0); HEMOGLOBIN 13.7 g/dl (13.5-17.5); LYMPH # 2.4 10^3/uL (1.5-5.0); LYMPH % 21.1 % (24.0-44.0); MEAN CORPUSCULAR HEMOGLOBIN 28.7 pg (27.0-33.0); MEAN CORPUSCULAR HGB CONC 32.5 g/dl (32.0-36.5); MEAN CORPUSCULAR VOLUME 88.3 fl (80.0-96.0); MONO # 1.5 10^3/uL (0.0-0.8); MONO % 13.4 % (0.0-5.0); NEUTROPHILS # 7.2 10^3/uL (1.5-8.5); NEUTROPHILS % 64.5 % (36.0-66.0); PLATELET COUNT, AUTOMATED 328 10^3/uL (150-450); RED BLOOD COUNT 4.78 10^6/uL (4.30-6.10); WHITE BLOOD COUNT 11.2 10^3/uL (4.0-10.0)
[2019-08-10 15:36] LABS: ALBUMIN 3.7 GM/DL (3.2-5.2); ALT/SGPT 28 U/L (12-78); BILIRUBIN,TOTAL 0.2 MG/DL (0.2-1.0); BLOOD UREA NITROGEN 17 MG/DL (7-18); C REACTIVE PROTEIN QUANTITATIV 1.62 MG/DL (0.00-0.30); CALCIUM LEVEL 10.1 MG/DL (8.5-10.1); CARBON DIOXIDE LEVEL 30 MEQ/L (21-32); CHLORIDE LEVEL 103 MEQ/L (98-107); CREATININE FOR GFR 0.68 MG/DL (0.70-1.30); GLOMERULAR FILTRATION RATE > 60.0 (>56); GLUCOSE, FASTING 87 MG/DL (70-100); LIPASE 57 U/L (73-393); SODIUM LEVEL 140 MEQ/L (136-145); TOTAL PROTEIN 8.1 GM/DL (6.4-8.2)
== END ==
LOC: M SFHCPLAZ 13:53
PROVIDERS: ATTEND Physician Assistant Medical
DX: R11.10 Vomiting, unspecified (principal)
CPT/HCPCS: 36415; 80053; 83605; 83690; 85025; 86140; G0463

== ENCOUNTER → 2019-08-11 | Outpatient (CLI) | payer MEDICARE, MEDICAID ==
--- NOTE | 2019-08-11 15:05 | REP ---
CHEST X-RAY: Two views. HISTORY: Acute vomiting. COMPARISON CHEST X-RAY: December 20, 2018. FINDINGS: There is a dextroconvex curvature in the thoracic spine. The patient is leaned somewhat to the left. The lungs are somewhat under inflated but free of infiltrate. Pleural angles are sharp. The heart is not felt to be enlarged. IMPRESSION: No active cardiopulmonary disease. Dextroconvex curvature in the thoracic spine. Electronically Signed by Karel Glynn MD 08/11/2019 03:35 P
== END ==
LOC: M RAD 13:33
PROVIDERS: ATTEND Physician Assistant Medical
DX: R11.10 Vomiting, unspecified (principal)

== ENCOUNTER → 2019-08-12 | Outpatient (REF) | payer MEDICARE, MEDICAID ==
[~2019-08-12] MED LIST changes: -AMLO1TAB24 PO; +AMLO5TAB6 PO; +ASPI81TA85 PO; -ASPI81TA86 PO; -CALC-212 PO; +CALC600T7 PO
[2019-08-12 19:11] LABS: AMORPHOUS SEDIMENT SMALL (NEGATIVE); APPEARANCE, URINE TURBID (CLEAR); BACTERIA, URINE AUTO 1+ (NEGATIVE); BILIRUBIN, URINE AUTO NEGATIVE (NEGATIVE); BLOOD, URINE BLOOD 1+ (NEGATIVE); COLOR, URINE YELLOW (YELLOW); GLUCOSE, URINE (UA) AUTO NEGATIVE (NEGATIVE); KETONE, URINE AUTO NEGATIVE (NEGATIVE); LEUKOCYTE ESTERASE, URINE AUTO 3+ (NEGATIVE); MUCUS, URINE SMALL (NEGATIVE); NITRITE, URINE AUTO POSITIVE (NEGATIVE); PROTEIN, URINE AUTO NEGATIVE (NEGATIVE); RBC, URINE AUTO 19 /HPF (0-3); SPECIFIC GRAVITY URINE AUTO 1.018 (1.002-1.035); SQUAMOUS EPITHELIAL CELL UR AU 0 /HPF (0-6); UROBILINOGEN, URINE AUTO 0.2 mg/dL (0.0-2.0); WBC, URINE AUTO 57 /HPF (0-3)
== END ==
LOC: M SFHCPLAZ 18:12
PROVIDERS: ATTEND Physician Assistant Medical
DX: R11.10 Vomiting, unspecified (principal); N39.0 Urinary tract infection, site not specified

== ENCOUNTER → 2019-09-08 | Outpatient (CLI) | payer MEDICARE, MEDICAID ==
[~2019-09-08] MED LIST changes: +AMLO1TAB24 PO; -AMLO5TAB6 PO; -ASPI81TA85 PO; +ASPI81TA86 PO; +CALC-212 PO; -CALC600T7 PO
[2019-09-08 09:27] LABS: BASO % 0.3 % (0.0-1.0); EOS # 0.1 10^3/uL (0.0-0.5); EOS % 2.2 % (0.0-3.0); HEMATOCRIT 41.9 % (42.0-52.0); HEMOGLOBIN 13.5 g/dl (13.5-17.5); LYMPH # 1.8 10^3/uL (1.5-5.0); LYMPH % 28.6 % (24.0-44.0); MEAN CORPUSCULAR HEMOGLOBIN 28.7 pg (27.0-33.0); MEAN CORPUSCULAR HGB CONC 32.2 g/dl (32.0-36.5); MONO # 0.8 10^3/uL (0.0-0.8); NEUTROPHILS # 3.5 10^3/uL (1.5-8.5); NEUTROPHILS % 55.6 % (36.0-66.0); PLATELET COUNT, AUTOMATED 221 10^3/uL (150-450); RED BLOOD COUNT 4.71 10^6/uL (4.30-6.10); WHITE BLOOD COUNT 6.3 10^3/uL (4.0-10.0)
[2019-09-08 09:54] LABS: PHENOBARBITAL LEVEL 29.1 UG/ML (15.0-40.0); PHENYTOIN (DILANTIN) 8.8 UG/ML (10.0-20.0)
== END ==
LOC: M LAB 08:43
PROVIDERS: ATTEND Physician Assistant Medical
DX: R56.9 Unspecified convulsions (principal); Z51.81 Encounter for therapeutic drug level monitoring

== ENCOUNTER → 2019-09-28 | Outpatient (CLI) | payer MEDICARE, MEDICAID ==
[2019-11-13 08:19] LABS: ALBUMIN 3.8 GM/DL (3.2-5.2); ALT/SGPT 23 U/L (12-78); BILIRUBIN,TOTAL 0.2 MG/DL (0.2-1.0); BLOOD UREA NITROGEN 17 MG/DL (7-18); CARBON DIOXIDE LEVEL 34 MEQ/L (21-32); CHLORIDE LEVEL 103 MEQ/L (98-107); CHOLESTEROL LEVEL 177 MG/DL (<200); CHOLESTEROL RISK RATIO 3.765 (<5); CREATININE FOR GFR 0.88 MG/DL (0.70-1.30); GLOMERULAR FILTRATION RATE > 60.0 (>56); GLUCOSE, FASTING 88 MG/DL (70-100); HDL CHOLESTEROL 47 MG/DL (>40); LDL CHOLESTEROL 102 MG/DL (<100); MAGNESIUM LEVEL 2.1 MG/DL (1.8-2.4); NON-HDL-C 130 MG/DL; POTASSIUM SERUM 4.3 MEQ/L (3.5-5.1); PTH INTACT 16.2 PG/ML (18.5-88.0); SODIUM LEVEL 140 MEQ/L (136-145); TOTAL 25(OH) VITAMIN D 78.8 NG/ML (30.0-100.0); TOTAL PROTEIN 8.2 GM/DL (6.4-8.2); TRIGLYCERIDES LEVEL 142 MG/DL (<150)
== END ==
LOC: M LAB 08:49
PROVIDERS: ATTEND Family Medicine
DX: E55.9 Vitamin D deficiency, unspecified (principal); Z12.5 Encounter for screening for malignant neoplasm of prostate; I10 Essential (primary) hypertension
CPT/HCPCS: 36415; 80053; 80061; 80185; 82306; 83735; 83970; G0103

== ENCOUNTER → 2019-09-28 | Outpatient (CLI) | payer MEDICARE, MEDICAID | LOC: M LAB 08:49 | PROVIDERS: ATTEND Physician Assistant Medical | DX: R56.9 Unspecified convulsions (principal) ==

== ENCOUNTER → 2019-10-26 | Outpatient (CLI) | payer MEDICARE, MEDICAID | LOC: M LAB 09:22 | PROVIDERS: ATTEND Physician Assistant Medical | DX: G43.909 Migraine, unspecified, not intractable, without status migrainosus (principal) ==

== ENCOUNTER → 2019-10-26 | Outpatient (CLI) | payer MEDICARE, MEDICAID ==
[2019-10-26 10:56] LABS: BASO % 0.3 % (0.0-1.0); EOS # 0.1 10^3/uL (0.0-0.5); EOS % 1.1 % (0.0-3.0); HEMATOCRIT 40.5 % (42.0-52.0); HEMOGLOBIN 13.4 g/dl (13.5-17.5); LYMPH % 31.9 % (24.0-44.0); MEAN CORPUSCULAR HEMOGLOBIN 29.7 pg (27.0-33.0); MEAN CORPUSCULAR HGB CONC 33.1 g/dl (32.0-36.5); MEAN CORPUSCULAR VOLUME 89.8 fl (80.0-96.0); MONO # 0.8 10^3/uL (0.0-0.8); MONO % 12.3 % (0.0-5.0); NEUTROPHILS # 3.5 10^3/uL (1.5-8.5); NEUTROPHILS % 54.1 % (36.0-66.0); PLATELET COUNT, AUTOMATED 413 10^3/uL (150-450); RED BLOOD COUNT 4.51 10^6/uL (4.30-6.10); WHITE BLOOD COUNT 6.4 10^3/uL (4.0-10.0)
[2019-10-26 11:17] LABS: ALBUMIN 3.4 GM/DL (3.2-5.2); ALT/SGPT 23 U/L (12-78); BILIRUBIN,TOTAL 0.2 MG/DL (0.2-1.0); BLOOD UREA NITROGEN 13 MG/DL (7-18); CALCIUM LEVEL 9.1 MG/DL (8.5-10.1); CARBON DIOXIDE LEVEL 28 MEQ/L (21-32); CHLORIDE LEVEL 105 MEQ/L (98-107); CPK CREATINE PHOSPHOKINASE 48 U/L (39-308); CREATININE FOR GFR 0.72 MG/DL (0.70-1.30); GLOMERULAR FILTRATION RATE > 60.0 (>56); GLUCOSE, FASTING 80 MG/DL (70-100); POTASSIUM SERUM 4.9 MEQ/L (3.5-5.1); PROSTATIC SPECIFIC AG MONITOR 1.36 NG/ML (< 4.00); SODIUM LEVEL 140 MEQ/L (136-145); TOTAL PROTEIN 7.7 GM/DL (6.4-8.2)
== END ==
LOC: M LAB 09:20
PROVIDERS: ATTEND Family Medicine
DX: R74.8 Abnormal levels of other serum enzymes (principal); R97.20 Elevated prostate specific antigen [PSA]; I10 Essential (primary) hypertension

== ENCOUNTER → 2019-12-02 | Outpatient (REF) | payer MEDICARE, MEDICAID ==
[2019-12-02 14:14] LABS: BASO % 0.3 % (0.0-1.0); EOS % 0.3 % (0.0-3.0); HEMATOCRIT 40.2 % (42.0-52.0); HEMOGLOBIN 12.9 g/dl (13.5-17.5); LYMPH # 2.3 10^3/uL (1.5-5.0); LYMPH % 32.7 % (24.0-44.0); MEAN CORPUSCULAR HEMOGLOBIN 28.4 pg (27.0-33.0); MEAN CORPUSCULAR HGB CONC 32.1 g/dl (32.0-36.5); MEAN CORPUSCULAR VOLUME 88.5 fl (80.0-96.0); MONO # 1.3 10^3/uL (0.0-0.8); MONO % 17.8 % (0.0-5.0); NEUTROPHILS # 3.4 10^3/uL (1.5-8.5); NEUTROPHILS % 48.6 % (36.0-66.0); PLATELET COUNT, AUTOMATED 308 10^3/uL (150-450); RED BLOOD COUNT 4.54 10^6/uL (4.30-6.10)
[2019-12-02 14:38] LABS: ALBUMIN 3.6 GM/DL (3.2-5.2); ALT/SGPT 23 U/L (12-78); BILIRUBIN,TOTAL 0.2 MG/DL (0.2-1.0); BLOOD UREA NITROGEN 17 MG/DL (7-18); C REACTIVE PROTEIN QUANTITATIV 1.09 MG/DL (0.00-0.30); CARBON DIOXIDE LEVEL 32 MEQ/L (21-32); CHLORIDE LEVEL 104 MEQ/L (98-107); CREATININE FOR GFR 0.78 MG/DL (0.70-1.30); GLOMERULAR FILTRATION RATE > 60.0 (>56); GLUCOSE, FASTING 85 MG/DL (70-100); POTASSIUM SERUM 4.3 MEQ/L (3.5-5.1); SODIUM LEVEL 141 MEQ/L (136-145); TOTAL PROTEIN 7.6 GM/DL (6.4-8.2)
[2019-12-02 14:44] LABS: ERYTHROCYTE SEDIMENTATION RATE 26 mm/hr (0-20)
== END ==
LOC: M SFHCPLAZ 11:38
PROVIDERS: ATTEND Physician Assistant
DX: K59.00 Constipation, unspecified (principal); R82.998 Other abnormal findings in urine; Z87.440 Personal history of urinary (tract) infections
CPT/HCPCS: 36415; 80053; 85025; 85652; 86140; G0463

== ENCOUNTER 2019-12-19 11:59 | Outpatient (CLI) | payer MEDICARE, MEDICAID ==
[~2019-12-19] VITALS: Ht 147.3 cm; Wt 63.4 kg
[~2019-12-19 11:59] MED LIST changes: +ZOLEDRONIC ACID 5 MG in IV 1 EA IV ONE
[2019-12-19] MEDS ORDERED: ZOLEDRONIC ACID 5 MG in IV 1 EA IV ONE (12:30)
== END 2019-12-19 13:10 | disposition home or self-care (01) ==
LOC: M INFU 11:59
PROVIDERS: ATTEND Family Medicine
DX: M81.0 Age-related osteoporosis without current pathological fracture (principal)
CPT/HCPCS: 96365; J3489

== ENCOUNTER → 2020-01-16 | Outpatient (CLI) | payer MEDICARE, MEDICAID ==
[~2020-01-16] MED LIST changes: +AMLO2.5T3 PO; +D3 S1CAP PO; +DIAZ5TAB PO; +GNP8.6TA PO; +LANS30CA93 PO; -ZOLEDRONIC ACID 5 MG in IV 1 EA IV ONE
== END ==
LOC: EEVIPCON 13:09 → M LABSMTC 13:09
PROVIDERS: ATTEND Family Medicine
DX: Z20.828 Contact with and (suspected) exposure to other viral communicable diseases (principal)

== ENCOUNTER 2020-01-17 14:05 | Emergency (ER) | payer MEDICARE, MEDICAID ==
[~2020-01-17] VITALS: Ht 121.9 cm; Wt 65.6 kg
[~2020-01-17 14:05] MED LIST changes: -AMLO2.5T3 PO; -D3 S1CAP PO; -DIAZ5TAB PO; -GNP8.6TA PO; -LANS30CA93 PO
[2020-01-17] MEDS ORDERED: DILA100C PO ×2 (14:38)
[2020-01-17] MEDS ORDERED: GNP8.6TA PO (14:38)
[2020-01-17] MEDS ORDERED: LANS30CA93 PO (14:38)
[2020-01-17] MEDS ORDERED: BACL10TA2 PO (14:38)
[2020-01-17] MEDS ORDERED: DIAZ5TAB PO (14:38)
[2020-01-17] MEDS ORDERED: AMLO2.5T3 PO (14:38)
[2020-01-17] MEDS ORDERED: D3 S1CAP PO (14:38)
[2020-01-17] MEDS ORDERED: RECL5INJ2 IV (14:38)
[2020-01-17] MEDS ORDERED: LORazepam 2 MG/ML VIAL IM STA (17:34)
[2020-01-17] MEDS ORDERED: PHENobarbitaL 30 MG TAB PO ONE (18:00)
[2020-01-17 18:34] LABS: BASO % 0.3 % (0.0-1.0); HEMATOCRIT 40.1 % (42.0-52.0); HEMOGLOBIN 12.8 g/dl (13.5-17.5); LYMPH # 1.9 10^3/uL (1.5-5.0); LYMPH % 29.1 % (24.0-44.0); MEAN CORPUSCULAR HGB CONC 31.9 g/dl (32.0-36.5); MEAN CORPUSCULAR VOLUME 84.6 fl (80.0-96.0); MONO # 1.8 10^3/uL (0.0-0.8); MONO % 27.6 % (0.0-5.0); NEUTROPHILS # 2.8 10^3/uL (1.5-8.5); NEUTROPHILS % 42.7 % (36.0-66.0); PLATELET COUNT, AUTOMATED 234 10^3/uL (150-450); RED BLOOD COUNT 4.74 10^6/uL (4.30-6.10); WHITE BLOOD COUNT 6.6 10^3/uL (4.0-10.0)
[2020-01-17 19:14] LABS: ALBUMIN 3.6 GM/DL (3.2-5.2); ALT/SGPT 28 U/L (12-78); BILIRUBIN,TOTAL 0.1 MG/DL (0.2-1.0); BLOOD UREA NITROGEN 15 MG/DL (7-18); CALCIUM LEVEL 8.8 MG/DL (8.5-10.1); CARBON DIOXIDE LEVEL 26 MEQ/L (21-32); CHLORIDE LEVEL 105 MEQ/L (98-107); CPK CREATINE PHOSPHOKINASE 1048 U/L (39-308); CREATININE FOR GFR 0.78 MG/DL (0.70-1.30); GLOMERULAR FILTRATION RATE > 60.0 (>56); GLUCOSE, FASTING 96 MG/DL (70-100); POTASSIUM SERUM 3.8 MEQ/L (3.5-5.1); SODIUM LEVEL 139 MEQ/L (136-145); TOTAL PROTEIN 8.2 GM/DL (6.4-8.2)
--- NOTE | 2020-01-17 19:34 | REP ---
INDICATION: covid. COMPARISON: Comparison radiographs August 11, 2019.. TECHNIQUE: Sitting AP portable radiograph. FINDINGS: There is a patchy infiltrate in the right upper lobe consistent with history of viral pneumonia. Subtle increased density seen in the right base laterally as well. There are old healed rib fractures on the right. There is a dextroconvex thoracic scoliotic curvature again noted. Cardiomediastinal silhouette is unchanged and unremarkable. The left lung is clear. IMPRESSION: Patchy infiltrates right upper lobe and right base consistent with the history of viral pneumonia. Thoracolumbar scoliosis. <Electronically signed by Jarrell Glynn > 01/17/201929
[2020-01-17 21:07] VITALS: BP 180/97
--- NOTE | 2020-01-18 12:03 | ED PDOC ---
Post-Departure Follow-Up dr damon faxed formal report of cxr for fu Destiny Miramontes MD Jan 18, 2020 12:03
== END 2020-01-17 21:16 | disposition home or self-care (01) ==
LOC: EEVIPCON 14:05 → M ED 14:05
DX: U07.1 COVID-19 (principal); G40.89 Other seizures; G80.9 Cerebral palsy, unspecified; F79 Unspecified intellectual disabilities; M41.24 Other idiopathic scoliosis, thoracic region; R91.8 Other nonspecific abnormal finding of lung field; Z79.82 Long term (current) use of aspirin; Z79.899 Other long term (current) drug therapy
CPT/HCPCS: 36415; 71045; 80053; 82550; 85025; 96372; 99284; J2060; U0002

== ENCOUNTER 2020-03-05 14:00 | Inpatient (IN) | payer MEDICARE, MEDICAID ==
[~2020-03-05] VITALS: Ht 142.2 cm; Wt 55.0 kg
[~2020-03-05 14:00] MED LIST changes: +AMLO2.5T3 PO; +D3 S1CAP PO; +DIAZ5TAB PO; +GNP8.6TA PO; +LANS30CA93 PO
[2020-03-05 14:50] LABS: BASO % 0.3 % (0.0-1.0); EOS # 0.1 10^3/uL (0.0-0.5); EOS % 1.1 % (0.0-3.0); HEMATOCRIT 45.7 % (42.0-52.0); HEMOGLOBIN 14.5 g/dl (13.5-17.5); LYMPH # 2.6 10^3/uL (1.5-5.0); LYMPH % 40.2 % (24.0-44.0); MEAN CORPUSCULAR HEMOGLOBIN 27.7 pg (27.0-33.0); MEAN CORPUSCULAR HGB CONC 31.7 g/dl (32.0-36.5); MEAN CORPUSCULAR VOLUME 87.4 fl (80.0-96.0); MONO # 1.1 10^3/uL (0.0-0.8); MONO % 16.7 % (0.0-5.0); NEUTROPHILS # 2.7 10^3/uL (1.5-8.5); NEUTROPHILS % 41.5 % (36.0-66.0); PLATELET COUNT, AUTOMATED 322 10^3/uL (150-450); RED BLOOD COUNT 5.23 10^6/uL (4.30-6.10); WHITE BLOOD COUNT 6.4 10^3/uL (4.0-10.0)
--- OUTSIDE RECORDS SUMMARY | 2020-03-05 15:04 | CCD ---
Author Author [facility] [employer] [facility] [employer] Organization [facility] [employer] Address Unknown Phone Unavailable Care Team Providers Care International Bank Manager Name Role Phone Ash Vences Unavailable PROBLEMS Type Condition ICD9-CM Code [id number] Code Onset Dates Condition S tatus SNOMED Code Notes Problem Vitamin D deficiency, unspecified E55.9 Active 84932310 Problem Epilepsy, unspecified, not intractable, without status epilepticus G40.909 Active 66919012 Problem Osteoporosis M81.0 Active 44571574 Problem Constipation, chronic K59.00 Active 053346114 Problem Allergic rhinitis J30.9 Active 04501286 Problem GERD (gastroesophageal reflux disease) K21.9 A ctive 033666554 Problem CP (cerebral palsy) G80.9 Active 507448654 Problem Urge incontinence N39.41 Active 44829370 Problem Hypertension, essential I10 Active 37153717 Problem History of lacunar cerebrovascular accident (CVA) Z86.73 Active 05592361989932 Problem Essential hypertension I10 Active 50211430 Problem Oropharyngeal dysphagia R13.12 Active 71533455 Problem Prostate cancer screening Z12.5 Active 403492 002 Problem 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, unspecified trigger J3 0.2 Active 011142301 Problem Dyshidrotic eczema L30.1 Active 326557084 Problem Nonintractable epilepsy with out status epilepticus, unspecified epilepsy type G40.909 Active 578632926 Problem Seizure disorder G40.909 Active 894138715 Problem Colon cancer screening Z12.11 Active 123166699 Problem Left hemiplegia G81.94 Active 763337908 ALLERGIES No Known Allergies ENCOUNTERS from 1960 to 2020-02-21 Encounter Location Date Provider Diagnosis [facility] [address] [place] [address] Feb, 021 Ash Vences GERD (gastroesophageal reflux disease) K21.9 IMMUNIZATIONS Vaccine Route Administration Date Status Influenza (18 yrs & older) Flublok IM Intramuscular Mar 01, 2018 Administered TDAP 0.5mL (Boostrix) IM Intramuscular August 11, 2011 Administe red Influenza (6mo & up) Fluzone IM Intramuscular Dec 05, 2014 Ad ministered Influenza (6mo & up) Fluzone Unknown Nov 21, 2013 Adm inistered Influenza (6mo & up) Fluzone IM Intramuscular Dec 15, 2012 Ad ministered SOCIAL HISTORY Tobacco Use: Social History Observation Description Date Details (start date - stop date) Never Smoker Sex Assigned At : Social History Observation Description Sex Assigned At Unknown Education: Question Answer Notes Level of Education: Grade School Language: Question Answer Notes Languages spoken: Yi Scientologist: Question Answer Notes Scientologist No islam beliefs that would impact health care. Sexual Hx: Question Answer Notes Had sex in the last 12 months (vaginal, oral, or anal)? No Have you ever had an STD? No Alcohol Screening: Question Answer Notes Did you have a drink containing alcohol in the past year? No Points 0 Interpretation Negative Tobacco Use: Question Answer Notes Are you a: never smoker REASON FOR REFERRAL No Information VITAL SIGNS No information MEDICATIONS Medication SIG (Take, Route, Frequency, Duration) Notes Start Da te End Date Status Peridex 0.12 % 15 ml Mouth/Throat twice a day for 15 Active AmLODIPine Besylate 2.5 MG 1 tablet Orally 1900 for 90 day(s) Active Montelukast Sodium 10 MG 1 tablet Orally before bedtime Nov, Active Flonase Allergy Relief 50 MCG/ACT 1 spray in each nostril Nasall y Once a day Nov, Active May Have - as directed straight cath to collect UA/UC N39.0 Nov, Active Wheelchair _ Ifeanyi height manual wheelchai r with accessories DX: G80.9 Daily- medicaid # [id number] for 9999 days Feb, Active InCare Straight 14FR/20CM 1 as directed 1 for 1 days 09 Oc 2019 Active MiraLax - 17 grams with 8 ounces of fluid Orally Once a day for 30 Active Calcium Carbonate-Vitamin D 600-400 MG-UNIT TAKE ONE T ABLET BY MOUTH TWICE DAILY for 30 Active Reclast 5 MG/100ML 1 Intravenous annually Active Bisacodyl 10 MG 1 suppository as needed Rect al Once a day PRN if no BM for 5 day(s) Nov, Active Baclofen 10 MG 1 tab Orally Twice a day Active Senokot 8.6 MG 1 tablet Orally at bedtime for 30 day(s) Active Phenobarbital 32.4 MG 1 tablet Orally Three times a day MDD=3 f or 30 day(s) Active Lansoprazole 30 MG TAKE ONE CAPSULE BY MOUTH ONCE DAILY BEFORE D INNER for 30 Active Levetiracetam 750 MG 1 tablet Orally Twice a day for 30 Days Active Fleet Enema 7-19 GM/118ML as directed Rectal PRN if no BM in 3 days for 2 days Nov, Active Triamcinolone Acetonide 0.1 % 1 application to affecte d area Externally Twice a day x 10D to feet c eczema flare for 90 day(s) Active Oxybutynin Chloride ER 5 MG 1 tablet Orally Once a day Active Claritin 10 MG 1 tablet Orally Once a day for 30 day(s) Active Valium 5 MG 1 tablet Orally 30 minutes b efore procedures & dental appts as needed for 1 days May, Active Phenytoin Sodium 100 MG 1 capsule Orally every morni ng and then 2 capsulesl @ HS for 30 Days Active Vitamin D (Cholecalciferol) 50 MCG (2000 UT) 1 tab Ora lly once a day for 90 day(s) Active Multivitamins OTC 1 tablet Orally Once a day for 30 day(s) Active Calcium 600 + D 600-400 MG-UNIT 1 tablet Orally Twice a day Active Aspir-81 81 MG 1 tablet Orally Once a day for 90 day(s) Active Lansoprazole 30 MG 1 capsule Orally AC dinner for 30 day(s) Active PROCEDURES No Information RESULTS No Results REASON FOR VISIT lansoprazole MEDICAL (GENERAL) HISTORY Type Description Date Medical History osteoporosis, senile with hi story of right fibula spiral fracture December 2007 Medical History seizure disorder, generalized Medical History allergic rhinitis Medical History urge incontinence Medical History constipation, chronic Medical History mental retardation, profound Medical History cerebral palsy Medical History + H pylori Ab 5.9 (0-0.80)-rxed c bis/om ep/doxy/metro 14D Medical History hypetension, essential-new o nset 10/2016 c admission for RLL PN- 10/2016 normal B renal US s CAROLINE Medical History multiple 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, B occipital/temporal/parietal encephalmalacia by 10/19/18 MRI Medical History 12/2018 Rt M Lobe PNeumonia-rxed levo 21 D Medical History COVID-19 c R PN/rhabdo dx 01/18/20 Surgical History vouyrlnrjth-[id number]-pamcwd 07/2013 Hospitalization History RLL PN by CXR-favor aspirati on PN given onset 7D p general anesthesia for dental procedure, seizure acitivity, new-onset HTN 10/2016 Goals Section No Information Health Concerns No Information MEDICAL EQUIPMENT No Information MENTAL STATUS No Information FUNCTIONAL STATUS No Information ASSESSMENTS Encounter Date Diagnosis Assessment Notes Treatment Notes Treatm ent Clinical Notes Feb, GERD (gastroesophageal reflux disease) (ICD-10 - K21.9) PLAN OF TREATMENT Medication Medication Name Sig Start Date Stop Date Aspir-81 81 MG 1 tablet Orally Once a day for 90 day(s) Lansoprazole 30 MG 1 capsule Orally AC dinner for 30 day(s) Calcium 600 + D 600-400 MG-UNIT 1 tablet Orally Twice a day Multivitamins OTC 1 tablet Orally Once a day for 30 day(s) Phenobarbital 32.4 MG 1 tablet Orally Three times a day MDD=3 f or 30 day(s) Phenytoin Sodium 100 MG 1 capsule Orally every morni ng and then 2 capsulesl @ HS for 30 Days Senokot 8.6 MG 1 tablet Orally at bedtime for 30 day(s) Vitamin D (Cholecalciferol) 50 MCG (2000 UT) 1 tab Ora lly once a day for 90 day(s) Levetiracetam 750 MG 1 tablet Orally Twice a day for 30 Days Claritin 10 MG 1 tablet Orally Once a day for 30 day(s) Triamcinolone Acetonide 0.1 % 1 application to affecte d area Externally Twice a day x 10D to feet c eczema flare for 90 day(s) Flonase Allergy Relief 50 MCG/ACT 1 spray in each nostril Na alvarez Once a day Nov, Oxybutynin Chloride ER 5 MG 1 tablet Orally Once a day Reclast 5 MG/100ML 1 Intravenous annually AmLODIPine Besylate 2.5 MG 1 tablet Orally 1900 for 90 day(s) Next Appt Details Provider Name:Ash Vences, 2020-04-02 0 9:30:00 AM, [address] [place], [address], Insurance Providers Payer Name Payer Address Payer Phone Insured Name Patient Relati onship to Insured Coverage Start Date Coverage End Date MEDICARE Part A and B [address] [facility] [address] [phone] [employer] [place] self MEDICAID [employer] [address] [facility] [address] [employer] [place] self
--- OUTSIDE RECORDS SUMMARY | 2020-03-05 15:04 | CCD ---
Author Author [facility] Organization [facility] [employer] Address Unknown Phone Unavailable Care Team Providers Care Java Xml Developer Name Role Phone Ash Vences Unavailable PROBLEMS Type Condition ICD9-CM Code NDB73-ER Code Onset Dates Condition S tatus SNOMED Code Notes Problem Vitamin D deficiency, unspecified E55.9 Active 16002012 Problem Epilepsy, unspecified, not intractable, without status epilepticus G40.909 Active 50215554 Problem Osteoporosis M81.0 Active 55322029 Problem Constipation, chronic K59.00 Active 946103405 Problem Allergic rhinitis J30.9 Active 81260193 Problem GERD (gastroesophageal reflux disease) K21.9 A ctive 126404038 Problem CP (cerebral palsy) G80.9 Active 417636974 Problem Urge incontinence N39.41 Active 96422833 Problem Hypertension, essential I10 Active 99410737 Problem History of lacunar cerebrovascular accident (CVA) Z86.73 Active 35874370074553 Problem Essential hypertension I10 Active 19087277 Problem Oropharyngeal dysphagia R13.12 Active 09630525 Problem Prostate cancer screening Z12.5 Active 229594 002 Problem 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, unspecified trigger J3 0.2 Active 841111743 Problem Dyshidrotic eczema L30.1 Active 759586141 Problem Nonintractable epilepsy with out status epilepticus, unspecified epilepsy type G40.909 Active 562583960 Problem Seizure disorder G40.909 Active 871347660 Problem Colon cancer screening Z12.11 Active 591205864 Problem Left hemiplegia G81.94 Active 218679128 ALLERGIES No Known Allergies ENCOUNTERS from 1960 to 2020-01-31 Encounter Location Date Provider Diagnosis [address] [place] [address] Jan, 020 Ash Vences IMMUNIZATIONS Vaccine Route Administration Date Status Influenza [...] School Language: Question Answer Notes Languages spoken: Yoruba Sikh: Question Answer Notes Sikh No adventist beliefs that would impact health care. Sexual [...] with accessories DX: G80.9 Daily- medicaid # [id number] for 9999 days Feb, Active InCare Straight 14FR/20CM 1 as directed 1 for 1 days 2019 Active MiraLax - 17 grams with [...] capsulesl @ HS for 30 Days Active Lansoprazole 30 MG 1 capsule Orally AC dinner for 30 day(s) Active Calcium 600 + D 600-400 MG-UNIT 1 tablet Orally Twice a day Active Vitamin D (Cholecalciferol) 50 MCG (2000 UT) 1 tab Ora lly once a day for 90 day(s) Active Multivitamins OTC 1 tablet Orally Once a day for 30 day(s) Active Aspir-81 81 MG 1 tablet Orally Once a day for 90 day(s) Active PROCEDURES No Information RESULTS No Results REASON FOR VISIT chlorthalidone MEDICAL (GENERAL) HISTORY Type Description Date Medical [...] c R PN/rhabdo dx 01/18/20 Surgical History ltnbbefhumt-Rycsea-nultdl 07/2013 Hospitalization History RLL PN by CXR-favor aspirati on PN given onset 7D p general anesthesia for dental procedure, seizure acitivity, new-onset HTN 10/2016 Goals Section No Information Health Concerns No Information MEDICAL EQUIPMENT No Information MENTAL STATUS No Information FUNCTIONAL STATUS No Information ASSESSMENTS No Information PLAN OF TREATMENT Medication Medication Name Sig Start Date Stop Date Multivitamins OTC 1 tablet Orally Once a day for 30 day(s) Aspir-81 81 MG 1 tablet Orally Once a day for 90 day(s) Vitamin D (Cholecalciferol) 50 MCG (1999 UT) 1 tab Ora lly once a day for 90 day(s) Calcium 600 + D 600-400 MG-UNIT 1 tablet Orally Twice a day Phenobarbital 32.4 MG 1 tablet Orally Three times a day MDD=3 f or 30 day(s) Phenytoin Sodium 100 MG 1 capsule Orally every morni ng and then 2 capsulesl @ HS for 30 Days Senokot 8.6 MG 1 tablet Orally at bedtime for 30 day(s) Lansoprazole 30 MG 1 capsule Orally AC dinner for 30 day(s) Levetiracetam 750 MG 1 tablet Orally [...] Name:Ash Vences, 2020-04-02 0 9:30:00 AM, [address] [place], [address], Insurance Providers Payer Name Payer Address Payer Phone Insured Name Patient Relati onship to Insured Coverage Start Date Coverage End Date MEDICARE Part A and B [address] [facility] [id number] [employer] self MEDICAID [employer] [address] [facility] [address] [employer] [place] self
--- OUTSIDE RECORDS SUMMARY | 2020-03-05 15:04 | CCD | Continuity of Care Document ---
Author Organization Unknown Address Unknown Phone Unavailable Care Team Providers Care Milk Collector Name Role Phone Ash Vences M.D. AUTM [phone] Problems Description No Information Available Social History Type Date Description Comments Sex Unknown Allergies, Adverse Reactions, Alerts Active Allergies Reaction Severity Comments Date NKDA 11/30/2009 Hay Fever 06/03/2013 Medications Active Medications SIG Qnty Indications Ordering Provide r Date Baclofen 10mg Tablets Take One Tablet By Mouth Twice Daily 60tabs Sarina Holt M.D. 05/06/2018 Dilantin 100mg Capsules 1 po in am and 2 po qhs, new dosing 90caps G40.309 Sarina Holt M.D. 05/23/2016 Keppra 750mg Tablets Take One Tablet By Mouth Twice Daily 60tabs Sarina Holt M.D. 11/19/2009 Phenobarbital 30mg Tablets 1 po tid Unknown Atarax Unknown Senokot 8.6mg Tablets Unknown Ditropan XL 10mg Tablets ER 24HR Unknown Claritin 10mg Capsules Unknown Multiple Vitamin Tablets Unknown Aspir-[address] 2 po daily Unknown Fosamax 70mg Tablets Unknown Calcium-Carb 600 + D [id number] Tablets Unknown Immunizations Description No Information Available Vital Signs Date Vital Result Comment 02/24/2019 3:39pm BP Systolic 122 mmHg BP Diastolic 70 mmHg Heart Rate 72 /min Respiratory Rate 16 /min 11/19/2018 6:25am BP Systolic 118 mmHg BP Diastolic 80 mmHg Heart Rate 72 /min Respiratory Rate 16 /min Results Test Acquired Date Facility Test Result H/L Range Note CBC With Differential 01/30/2020 [facility] White Blood Count 5.4 10 Normal 4.0-10.0 Red Blood Count 4.60 10 Normal 4.30-6.10 Hemoglobin 12.2 g/dL Low 13.5-17.5 Hematocrit 39.6 % Low 42.0-52.0 Mean Corpuscular Volume 86.1 fl Normal 80.0-96.0 Mean Corpuscular Hemoglobin 26.5 pg Low 27.0-33.0 Mean Corpuscular HGB Conc 30.8 g/dL Low 32.0-36.5 Red Cell Distribution Width 14.1 % Normal 11.5-14.5 Platelet Count, Automated 547 10 High 150-450 Neutrophils % 47.5 % Normal 36.0-66.0 Lymph % 36.6 % Normal 24.0-44.0 [place] % 13.8 % High 0.0-5.0 Eos % 1.1 % Normal 0.0-3.0 Baso % 0.6 % Normal 0.0-1.0 Immature Granulocyte % 0.4 % Normal 0-3.0 Nucleated Red Blood Cell % 0.0 % Normal 0-0 Neutrophils # 2.5 10 Normal 1.5-8.5 Lymph # 2.0 10 Normal 1.5-5.0 [place] # 0.7 10 Normal 0.0-0.8 Eos # 0.1 10 Normal 0.0-0.5 Baso # 0.0 10 Normal 0.0-0.2 Comprehensive Metabolic Profil 01/30/2020 [facility] Glucose, Fasting 164 mg/dL High 70-100 Blood Urea Nitrogen 14 mg/dL Normal 7-18 Creatinine For GFR 0.71 mg/dL Normal 0.70-1.30 Glomerular Filtration Rate > 60.0 Normal >56 1 Sodium Level 139 mEq/L Normal 136-145 Potassium Serum 4.6 mEq/L Normal 3.5-5.1 Chloride Level 105 mEq/L Normal 98-107 Carbon Dioxide Level 28 mEq/L Normal 21-32 Anion Gap 6 mEq/L Low 8-16 Calcium Level 8.9 mg/dL Normal 8.5-10.1 Ast/Sgot 15 U/L Normal 7-37 Alt/SGPT 34 U/L Normal 12-78 Alkaline Phosphatase 112 U/L Normal 45-117 Bilirubin,Total 0.2 mg/dL Normal 0.2-1.0 Total Protein 7.4 GM/DL Normal 6.4-8.2 Albumin 3.5 GM/DL Normal 3.2-5.2 Albumin/Globulin Ratio 0.9 Normal Laboratory test finding 01/30/2020 [facility] CPK Creatine Phosphokinase 82 U/L Normal 39-308 2 Phenytoin (Dilantin) 17.4 UG/ML Normal 10.0-20.0 3 Phenobarbital Level 35.3 UG/ML Normal 15.0-40.0 4 Levetiracetam (Keppra) 15.4 ug/mL Normal 10.0-40.0 5 Laboratory test finding 10/26/2019 [facility] Phenytoin (Dilantin) 15.1 UG/ML Normal 10.0-20.0 6 Laboratory test finding 09/28/2019 [facility] Phenytoin (Dilantin) 22.2 UG/ML High 10.0-20.0 7 CBC With Differential 09/08/2019 [facility] White Blood Count 6.3 10 Normal 4.0-10.0 Red Blood Count 4.71 10 Normal 4.30-6.10 Hemoglobin 13.5 g/dL Normal 13.5-17.5 Hematocrit 41.9 % Low 42.0-52.0 Mean Corpuscular Volume 89.0 fl Normal 80.0-96.0 Mean Corpuscular Hemoglobin 28.7 pg Normal 27.0-33.0 Mean Corpuscular HGB Conc 32.2 g/dL Normal 32.0-36.5 Red Cell Distribution Width 14.2 % Normal 11.5-14.5 Platelet Count, Automated 221 10 Normal 150-450 Neutrophils % 55.6 % Normal 36.0-66.0 Lymph % 28.6 % Normal 24.0-44.0 [place] % 13.0 % High 0.0-5.0 Eos % 2.2 % Normal 0.0-3.0 Baso % 0.3 % Normal 0.0-1.0 Immature Granulocyte % 0.3 % Normal 0-3.0 Nucleated Red Blood Cell % 0.0 % Normal 0-0 Neutrophils # 3.5 10 Normal 1.5-8.5 Lymph # 1.8 10 Normal 1.5-5.0 [place] # 0.8 10 Normal 0.0-0.8 Eos # 0.1 10 Normal 0.0-0.5 Baso # 0.0 10 Normal 0.0-0.2 Laboratory test finding 09/08/2019 [facility] Ast/Sgot 16 U/L Normal 7-37 8 Alt/SGPT 25 U/L Normal 12-78 9 Phenytoin (Dilantin) 8.8 UG/ML Low 10.0-20.0 10 Phenobarbital Level 29.1 UG/ML Normal 15.0-40.0 11 Levetiracetam (Keppra) 20.7 ug/mL Normal 10.0-40.0 12 Laboratory test finding 08/09/2019 [facility] Phenytoin (Dilantin) 8.2 UG/ML Low 10.0-20.0 13 1 Units are mL/min/1.73 m2 Chronic Kidney Disease Staging per NKF: Stage I & II GFR >=60 Normal to Mildly Decreased Stage III GFR 30-59 Moderately Decreased Stage IV GFR 15-29 Severely Decreased Stage V GFR <15 Very Little GFR Left ESRD GFR <15 on WORK[employer] DEV[employer]OP[employer]IST 2 note:<nlbl:demographic_chang ed> 3 note:<nlbl:demographic_chang ed> 4 note:<nlbl:demographic_chang ed> 5 This test was developed and its performance characteristics determined by [employer]. It has not been cleared or approved by the Food and Drug Administration. Performed at: [address] [id number] Sales Representative: Seng Nichols MD, Phone: [phone] 6 note:<nlbl:demographic_chang ed> 7 note:<nlbl:demographic_chang ed> 8 note:<nlbl:demographic_chang ed> 9 note:<nlbl:demographic_chang ed> 10 note:<nlbl:demographic_chang ed> 11 note:<nlbl:demographic_chang ed> 12 This test was developed and its performance characteristics determined by [employer]. It has not been cleared or approved by the Food and Drug Administration. Performed at: [address] [id number] Sales Representative: Seng Nichols MD, Phone: [phone] 13 note:<nlbl:demographic_chang ed> Procedures Description No Information Available Medical Devices Description No Information Available Encounters Type Date Location Provider Dx Diagnosis Office Visit 12/06/2019 10:00a Main office - [place] Lakisha harrison P.A.-C. 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 12/06/2019 G40.309 Generalized idiopathic epilepsy and epileptic syndromes, not Lakisha Jackson P.A.-C. 12/06/2019 G80.2 Spastic hemiplegic cerebral pals y Lakisha Jackson P.A.-C. 12/06/2019 R26.2 Difficulty in walking, not elsew here classified Stefan Ness.A.-C. 12/06/2019 F78 Other intellectual disabilities Stefan Ness.A.-C. 09/01/2019 G40.309 Generalized idiopathic epilepsy and epileptic syndromes, not Lakisha Jackson P.A.-C. 09/01/2019 I63.89 Other cerebral infarction Lakisha Jackson P.A.-C. 09/01/2019 G80.2 Spastic hemiplegic cerebral pals y Lakisha Jackson P.A.-C. 09/01/2019 R26.2 Difficulty in walking, not elsew here classified Lakisha Jackson P.A.-C. 09/01/2019 F78 Other intellectual disabilities Stefan Ness.A.-CKyra Plan of Treatment Future Appointment(s):* 03/08/2020 11:15 am - Hyacinth NessCKyra at Main office - [place] 12/06/2019 - Lakisha Jackson P.A.-C.* I63.89 Other cerebral infarction* Comments:* Not recurrent. * G40.309 Generalized idiopathic epilepsy and epileptic syndromes, not* Comments:* His recent Dilantin level was 15. Phenobarbital level was 29 and Keppra level 20 in August. Repeat levels in January. Order faxed to the residence. 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 * R26.2 Difficulty in walking, not elsewhere classified* Comments:* He is wheelchair bound with assistance and gait belt for transfers. * F78 Other intellectual disabilities* Follow up:* 3 months Functional Status Description No Information Available Mental Status Description No Information Available Referrals Refer to Reason for Referral Status Appt Date Sarina Holt M.D. Created [facility] [address] [place] [address] [phone]
--- OUTSIDE RECORDS SUMMARY | 2020-03-05 15:04 | CCD ---
Author Author [facility] Organization [facility] Address Unknown Phone Unavailable Care Team Providers Care Patient Financial Advocate Name Role Phone Ash Vences Unavailable PROBLEMS Type Condition ICD9-CM Code RFT56-OL Code Onset Dates Condition S tatus SNOMED Code Notes Problem Vitamin D deficiency, unspecified E55.9 Active 28083059 Problem Epilepsy, unspecified, not intractable, without status epilepticus G40.909 Active 40291910 Problem Osteoporosis M81.0 Active 76593560 Problem Constipation, chronic K59.00 Active 364209897 Problem Allergic rhinitis J30.9 Active 38783984 Problem GERD (gastroesophageal reflux disease) K21.9 A ctive 155451246 Problem CP (cerebral palsy) G80.9 Active 019281575 Problem Urge incontinence N39.41 Active 01210434 Problem Hypertension, essential I10 Active 96666901 Problem History of lacunar cerebrovascular accident (CVA) Z86.73 Active 17372121512086 Problem Essential hypertension I10 Active 33794328 Problem Oropharyngeal dysphagia R13.12 Active 26253998 Problem Prostate cancer screening Z12.5 Active 345075 002 Problem 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, unspecified trigger J3 0.2 Active 379083975 Problem Dyshidrotic eczema L30.1 Active 032401197 Problem Nonintractable epilepsy with out status epilepticus, unspecified epilepsy type G40.909 Active 030179248 Problem Seizure disorder G40.909 Active 167444604 Problem Colon cancer screening Z12.11 Active 895928393 Problem Left hemiplegia G81.94 Active 825045467 ALLERGIES No Known Allergies ENCOUNTERS from 1960 to 2020-02-02 Encounter Location Date Provider Diagnosis [address] [place] [address] Jan, 020 Ash Vences IMMUNIZATIONS Vaccine Route [...] School Language: Question Answer Notes Languages spoken: Armenian Yazidi: Question Answer Notes Yazidi No latter-day beliefs that would impact health care. Sexual [...] with accessories DX: G80.9 Daily- medicaid # [id number] for 9999 days Feb, Active [employer] [...] Information RESULTS No Results REASON FOR VISIT note for COVID-19 vaccine MEDICAL (GENERAL) HISTORY Type Description Date Medical [...] c R PN/rhabdo dx 01/18/20 Surgical History [id number] 07/2013 Hospitalization History RLL PN by CXR-favor [...] 90 day(s) Vitamin D (Cholecalciferol) 50 MCG (2000 [...] Name:Ash Vences, 2020-04-02 0 9:30:00 AM, [address] [place], [address], Insurance Providers Payer Name Payer Address Payer Phone Insured Name Patient Relati onship to Insured Coverage Start Date Coverage End Date MEDICARE Part A and B [address] [facility] [phone] [place] self MEDICAID [id number] [address] [facility] [id number] [place] self
--- OUTSIDE RECORDS SUMMARY | 2020-03-05 15:04 | CCD ---
Author Author [facility] Syst ems Organization [facility] Syst ems Address Unknown Phone Unavailable Care Team Providers Care Director Experimental Medicine Name Role Phone Ash Vences Unavailable PROBLEMS Type Condition ICD9-CM Code OXU60-NH Code Onset Dates Condition S tatus SNOMED Code Notes Problem Vitamin D deficiency, unspecified E55.9 Active 16361870 Problem Epilepsy, unspecified, not intractable, without status epilepticus G40.909 Active 97473204 Problem Osteoporosis M81.0 Active 32454390 Problem Constipation, chronic K59.00 Active 316892333 Problem Allergic rhinitis J30.9 Active 15466863 Problem GERD (gastroesophageal reflux disease) K21.9 A ctive 739371071 Problem CP (cerebral palsy) G80.9 Active 045025997 Problem Urge incontinence N39.41 Active 47580141 Problem Hypertension, essential I10 Active 90165893 Problem History of lacunar cerebrovascular accident (CVA) Z86.73 Active 65111086599990 Problem Essential hypertension I10 Active 95879479 Problem Oropharyngeal dysphagia R13.12 Active 53738775 Problem Prostate cancer screening Z12.5 Active 904015 002 Problem 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, unspecified trigger J3 0.2 Active 064177650 Problem Dyshidrotic eczema L30.1 Active 464259970 Problem Nonintractable epilepsy with out status epilepticus, unspecified epilepsy type G40.909 Active 608156792 Problem Seizure disorder G40.909 Active 152896960 Problem Colon cancer screening Z12.11 Active 942950894 Problem Left hemiplegia G81.94 Active 840130533 ALLERGIES No Known Allergies ENCOUNTERS from 1960 to 2020-01-30 Encounter Location Date Provider Diagnosis [address] [place] [address] 04 Jan, 2 020 Ash Vences COVID-19 U07.1 ; Oropharyngeal dysphagia R13.12 ; Osteoporosis M81.0 ; Left hemiplegia G81.94 ; Epilepsy, unspecified, not intractable, without status epilepticus G40.909 ; Vitamin D deficiency, unspecified E55.9 ; Anemia, unspecified type D64.9 ; History of lacunar cerebrovascular accident (CVA) Z86.73 ; Hypertension, essential I10 ; GERD (gastroesophageal reflux disease) K21.9 ; Dyshidrotic eczema L30.1 ; Urge incontinence N39.41 ; Prostate cancer screening Z12.5 ; Constipation, chronic K59.00 ; Allergic rhinitis J30.9 ; CP (cerebral palsy) G80.9 and Colon cancer screening Z12.11 IMMUNIZATIONS Vaccine Route Administration Date Status Influenza [...] School Language: Question Answer Notes Languages spoken: Maori Yazidism: Question Answer Notes Yazidism No presybeterian beliefs that would impact health care. Sexual [...] REASON FOR REFERRAL No Information VITAL SIGNS Weight 137 lbs Jan, Height 62 in Jan, BMI 25.05 kg/m2 Jan, Heart Rate 82 /min Jan, Respiratory Rate 18 /min Jan, Oximetry 97 RA Jan, Blood pressure systolic 123 mm Hg Jan, Blood pressure diastolic 75 mm Hg Jan, MEDICATIONS Medication SIG (Take, Route, Frequency, Duration) [...] with accessories DX: G80.9 Daily- medicaid # [id number] for 9999 days Feb, Active [employer] Straight [...] day Active Vitamin D (Cholecalciferol) 50 MCG (1999 UT) 1 tab Ora lly once a day for 90 day(s) Active Multivitamins OTC 1 tablet Orally Once a day for 30 day(s) Active Aspir-81 81 MG 1 tablet Orally Once a day for 90 day(s) Active PROCEDURES No Information RESULTS Component Value Reference Range CBC with Differential Reviewed date:01/30/2020 14:11:44 Interpretation: Performing Lab:[facility] LABORATORY [address] [facility] [address] , ,[place] [address] WHITE BLOOD COUNT 5.4 4.0-10.0 RED BLOOD COUNT 4.60 4.30-6.10 HEMOGLOBIN 12.2 13.5-17.5 HEMATOCRIT 39.6 42.0-52.0 MEAN CORPUSCULAR VOLUME 86.1 80.0-96.0 MEAN CORPUSCULAR HEMOGLOBIN 26.5 27.0-33.0 MEAN CORPUSCULAR HGB CONC 30.8 32.0-36.5 RED CELL DISTRIBUTION WIDTH 14.1 11.5-14.5 PLATELET COUNT, AUTOMATED 547 150-450 NEUTROPHILS % 47.5 36.0-66.0 LYMPH % 36.6 24.0-44.0 MONO % 13.8 0.0-5.0 EOS % 1.1 0.0-3.0 BASO % 0.6 0.0-1.0 NEUTROPHILS # 2.5 1.5-8.5 LYMPH # 2.0 1.5-5.0 MONO # 0.7 0.0-0.8 EOS # 0.1 0.0-0.5 BASO # 0.0 0.0-0.2 CPK CREATINE PHOSPHOKINASE Reviewed date:01/30/2020 14:11:31 Interpretation: Performing Lab:[facility] LABORAT[facility] [address] [facility] [address] , ,[place] [address] CPK CREATINE PHOSPHOKINASE 82 39-308 Comprehensive Metabolic Profile (CMP) Reviewed date:01/30/2020 14:11:37 Interpretation: Performing Lab:[facility] [address] [facility] [address] , ,[place] [address] GLUCOSE, FASTING 164 70-100 BLOOD UREA NITROGEN 14 7-18 CREATININE FOR GFR 0.71 0.70-1.30 GLOMERULAR FILTRATION RATE > 60.0 >56 SODIUM LEVEL 139 136-145 POTASSIUM SERUM 4.6 3.5-5.1 CHLORIDE LEVEL 105 98-107 CARBON DIOXIDE LEVEL 28 21-32 CALCIUM LEVEL 8.9 8.5-10.1 AST/SGOT 15 7-37 ALT/SGPT 34 12-78 ALKALINE PHOSPHATASE 112 45-117 BILIRUBIN,TOTAL 0.2 0.2-1.0 TOTAL PROTEIN 7.4 6.4-8.2 ALBUMIN 3.5 3.2-5.2 ALBUMIN/GLOBULIN RATIO 0.9 PHENYTOIN (DILANTIN) Reviewed date:01/30/2020 14:11:29 Interpretation: Performing Lab:[facility] LAB[facility] [address] [facility] [address] , ,[place] [address] PHENYTOIN (DILANTIN) 17.4 10.0-20.0 PHENOBARBITAL LEVEL Reviewed date:01/30/2020 14:11:46 Interpretation: Performing Lab:[facility] LABORAT[facility] [address] [facility] [address] , ,[place] [address] PHENOBARBITAL LEVEL 35.3 15.0-40.0 REASON FOR VISIT Er follow up MEDICAL (GENERAL) HISTORY Type Description Date Medical [...] c R PN/rhabdo dx 01/18/20 Surgical History [id number]-Aeiqgb-jchwkm 07/2013 Hospitalization History RLL PN by CXR-favor aspirati on PN given onset 7D p general anesthesia for dental procedure, seizure acitivity, new-onset HTN 10/2016 Goals Section No Information Health Concerns No Information MEDICAL EQUIPMENT No Information MENTAL STATUS No Information FUNCTIONAL STATUS No Information ASSESSMENTS Encounter Date Diagnosis Assessment Notes Treatment Notes Treatm ent Clinical Notes Jan, COVID-19 (ICD-10 - U07.1) another client in house + COVID for preadmission testing 01/20/20 VV: afebrile 12/2 PM, no dyspnea c SaO2 97%, taking bseline po s NVD, stable activity level, no sz activity, at gross baseline UPO per staff, repeat BW on D11 since sx onset, i.e. 01/26/20 01/17/20 SMCER given 1D fever/ST + PCR c rhabdo CPK 1048, 15/0.8, 3.6; WBC 6.6/hgb 12.8/plt 234K, 15/0.8, 3.8, normal LFTs; CXR RUL/basilar patchy infiltrate Jan, Oropharyngeal dysphagia (ICD-10 - R13.12) No difficultu on ground solids/regular liquids Jan, Osteoporosis (ICD-10 - M81.0) Recheck BMD 11/2020 ZA x -11/2019 Prolia not covered for men yet 2 servings dietary calcium daily 06/2018 -2.5/-1.4/-0.5 c 18/5/-2% change cw 06/2016; therefore, CCR 06/2016 -2.7/-2.0/-0.7 c -/12% change c/w 04/2014 BMD -2.9/-1.8/-1.7 c -3.4/19.4/-1.3% change c/w 02/2012, therefore restarted Reclast 03/2014 Forteo stopped given 2Y use 02/2012 BMD -2.8/-2.7/-1.6 c -0.3/-3.7/-0.2% change c/w 02/2010 therefore Reclast changed to Forteo Changed to Reclast given osteoporosis of bilateral hips and osteopenia of the spine by 02/2010 BMD despite treatment with Fosamax since April of 2008Jan, Left hemiplegia (ICD-10 - G81.94) Stable B UE/LE strength favor 2 CVA-plan asa to clopid if CVA extension by MRI (LUE intact strength, BUT loss of fine motor control) 10/19/18 stable MRI brain cw 05/28/16 CT brain 07/27/18 MRI brain under general sedation scheduled by Dr. Holt (patient will NOT hold steady nor lay flat for even CT head); but, was held up by surrogate court. Now rescheduled for 10/14/18 mid 04/2018 L UE>LE new onset weakness/incoordiation Jan, Epilepsy, unspecified, not i ntractable, without status epilepticus (ICD-10 - G40.909) Coninues leve 750 BID, pheny 100/200, pheno 32.4 TID 09/08/19 stable CBCD and LFTs pheny/pheno/leve 10/26/19 pheny 15 on 100/200 09/08/19 11/06/28; therefore, pheny 100 BID to 100/200 07/14/19 07/13/19 03/10/19 9, 29, 15 04 Jan, 2020 Vitamin D deficiency, unspecified (ICD-10 - E55. 9) 07/07/19 105, 9.4, 10 now on CTD 25; therefore, D3 5K to 2K 03/10/19 82, 9, 23 05/2016 86, 8.4, 27 09/2015 77, 8.5, PTH 47 on D3 5K, Ca 600 BID 12/2014 64, 8.2, PTH 42 Jan, Anemia, unspecified type (ICD-10 - D64.9) favor ACD 07/07/19 13.6, 86 09/2018 13.5, 87, EPA 9 06/2018 13.1, 85 10/2017 13.4, 85 05/2017 13.3, 87, CHr 36 02/2017 13.3, 90 05/2017 B12 521 09/2018 sIFE s MCB 05/2017 normal SPEP Jan, History of lacunar cerebrova scular accident (CVA) (ICD-10 - Z86.73) Patient without recurrent symptoms Jan, Hypertension, essential (ICD-10 - I10) Stable on amlo at 19, holding if SBP <100 07/26/19 SBP low 110s in AM, 130-140s in PM; therefore, changed from both qAM to CTD at 7, amlo at 19 c cb BID HBPs in 10D 09/2018 4.0, 0.7 02/2017 4.1, Mg 2.5 c stable cr 0.7 01/2017 decreased to 2.5 QD and cb later day BPs 10/2016 amlo 5 and CTD 25 qAM started given new-onset HTN during admission for RLL-? moreso 2 agitation/illness given baseline BPs prior 120s/70s 10/2017 lipids 99/53/108 Jan, GERD (gastroesophageal reflux disease) (ICD-10 - K21.9) Stable on lanso 30 qAM 03/2016 i changed to omeprazole 40, but recurrent burping daily c ? dysphagia; therefore, 09/2016 back to lanso 30 AC dinner c resolved sx 04/2015 started Prevacid 30 AC dinner 2 daily burping PP c ~qM vomiting c resolved symptoms Jan, Dyshidrotic eczema (ICD-10 - L30.1) R>L plantar feet (worsen by R AFO use) 04/2016 + TA o 0.1 BID 10D c flares Jan, Urge incontinence (ICD-10 - N39.41) Rare accidents and no UTIs on oxybut ER 5 qAM Jan, Prostate cancer screening (ICD-10 - Z12.5) Stable LUTs as per OAB 07/14/19 4.1 09/2018 0.9 10/2017 2.1-baseline intermittent nocturnal incontinence 09/2016 0.7 09/2015 PSA stable at 0.6 Jan, Constipation, chronic (ICD-10 - K59.00) Stable on current regimen Jan, Allergic rhinitis (ICD-10 - J30.9) Stable on lenny 10, FP 1 qAM Jan, CP (cerebral palsy) (ICD-10 - G80.9) Patient requires orthotic stabilizatiuon of R foot and ankle in sagitaal and coronal planes. Given he is ambulatory, he requires a custome molded articulation AFO to prevent valgus deformity of the R ankle. I agree with Wojciech Byers CPO, recommendations regarding the AFO. Jan, Colon cancer screening (ICD-10 - Z12.11) repeat colon 07/2023-R Jan, Other Prevention Guide lines, Men Ages 50 to 64 material was printed PLAN OF TREATMENT Medication Medication Name Sig [...] 1 tablet Orally 1900 for 90 day(s) Treatment Notes Assessment Notes Clinical Notes Constipation, chronic Stable on current regimen COVID-19 another client in ho use + COVID for preadmission xexixrz24/4/20 VV: afebrile 12/2 PM, no dyspnea c SaO2 97%, taking bseline po s NVD, stable activity level, no sz activity, at gross baseline UPO per staff, repeat BW on D11 since sx onset, i.e. 01/26/2012/20 SMCER given 1D fever/ST + PCR c rhabdo CPK 1048, 15/0.8, 3.6; WBC 6.6/hgb 12.8/plt 234K, 15/0.8, 3.8, normal LFTs; CXR RUL/basilar patchy infiltrate Prostate cancer screening Stable LUTs as per OA07/14/19 4. 0. 2.1-baseline intermittent nocturnal incontinence09/2016 0. PSA stable at 0.6 Oropharyngeal dysphagia No difficultu on ground solids/regular liquids CP (cerebral palsy) Patient requires ort hotic stabilizatiuon of R foot and ankle in sagitaal and coronal planes.Given he is ambulatory, he requires a custome molded articulation AFO to prevent valgus deformity of the R ankle.I agree with Wojciech Byers CPO, recommendations regarding the AFO. Osteoporosis Recheck BMD 11/2020Z A x 8-11/2019Prolia not covered for men yet2 servings dietary calcium daily06/2018 -2.5/-1.4/-0.5 c 18/5/-2% change cw 06/2016; therefore, -2.7/-2.0/-0.7 c -/12% change c/w BMD -2.9/-1.8/-1.7 c -3.4/19.4/-1.3% change c/w 02/2012, therefore restarted Reclas Forteo stopped given 2Y use02/2012 BMD -2.8/-2.7/-1.6 c -0.3/-3.7/-0.2% change c/w 02/2010 therefore Reclast changed to ForteoChanged to Reclast given osteoporosis of bilateral hips and osteopenia of the spine by 02/2010 BMD despite treatment with Fosamax since April of 2008 Allergic rhinitis Stable on lenny 10, FP 1 qAM Left hemiplegia Stable B UE/LE stren gthfavor 2 CVA-plan asa to clopid if CVA extension by MRI (LUE intact strength, BUT loss of fine motor control)10/19/18 stable MRI brain cw 05/28/16 CT brain07/27/18 MRI brain under general sedation scheduled by Dr. Holt (patient will NOT hold steady nor lay flat for even CT head); but, was held up by surrogate court. Now rescheduled for 10/14/18mid 04/2018 L UE>LE new onset weakness/incoordiation Epilepsy, unspecified, not intractable, without status epile pticus Coninues leve 750 BID, pheny 100/200, pheno 32.4 TI09/08/19 stable CBCD and LFTspheny/pheno/leve10/26/19 pheny 15 on 11/06/28; therefore, pheny 100 BID to 07/12/ 9, , 15 Colon cancer screening repeat colon 08/05 24-R Vitamin D deficiency, unspecified 0 105, 9.4, 10 now on CTD 25; therefore, D3 5K to 2K03/10/19 82, 9, /2016 86, 8.4, 278 77, 8.5, PTH 47 on D3 5K, Ca 600 BID12/2014 64, 8.2, PTH 42 Anemia, unspecified type favor ACD 0 13.6, 868/2018 13.5, 87, EPA 13.1, 859/2017 13.4, 854/2018 13.3, 87, CHr 361 13.3, 904/2018 B12 5218 sIFE s MCB4/2018 normal SPEP Urge incontinence Rare accidents and n o UTIs on oxybut ER 5 qAM Dyshidrotic eczema R>L plantar feet (wo rsen by R AFO use)04/2016 + TA o 0.1 BID 10D c flares History of lacunar cerebrovascular accident (CVA) Patient without recurrent symptoms Hypertension, essential Stable on amlo a t 19, holding if SBP <1006/11/05 SBP low 110s in AM, 130-140s in PM; therefore, changed from both qAM to CTD at 7, amlo at 19 c cb BID HBPs in 10D09/2018 4.0, 0. 4.1, Mg 2.5 c stable cr 0.712/2017 decreased to 2.5 QD and cb later day BPs10/2016 amlo 5 and CTD 25 qAM started given new-onset HTN during admission for RLL-? moreso 2 agitation/illness given baseline BPs prior 120s/70s9/2018 lipids 99/53/108 GERD (gastroesophageal reflux disease) S table on lanso 30 qAM2/2017 i changed to omeprazole 40, but recurrent burping daily c ? dysphagia; therefore, 09/2016 back to lanso 30 AC dinner c resolved s started Prevacid 30 AC dinner 2 daily burping PP c ~qM vomiting c resolved symptoms Treatment Notes Test Name Order Date LEVETIRACETAM (KEPPRA) 2020-01-30 Next Appt Details , BW 1W prior Reason: Provider Name:Ash Vences, 2020-04-02 0 9:30:00 AM, [address] [place], [address], Insurance Providers Payer Name Payer Address Payer Phone Insured Name Patient Relati onship to Insured Coverage Start Date Coverage End Date MEDICAID [employer] [address] [facility] [id number] [place] MEDICARE Part A and B [address] [facility] [phone] [place]
--- OUTSIDE RECORDS SUMMARY | 2020-03-05 15:04 | CCD | Continuity of Care Document ---
Author Cade Rose DPM Organization Unknown Address [address] [place] [address], [address] [place] [address] Phone [phone] Care Team Providers Care Picture Booker Name Role Phone Ash Vences M.D.M [phone] Problems Active Problems Provider Date Pain in limb Jose J Montesinos DPM Onset: 11/24/2019 Onychomycosis Jose J Montesinos DPM Onset: 11/24/2019 Ingrowing nail Jose J Montesinos DPM Onset: 11/24/2019 Social History Type Date Description Comments Sex Unknown ETOH Use Never used alcohol Tobacco Use Start: Unknown Patient has never smoked Allergies, Adverse Reactions, Alerts Description No Known Drug Allergies Medications Description No Active Medications Immunizations Description No Information Available Vital Signs Date Vital Result Comment 11/18/2019 10:10am Height 58 inches 4'10" Weight 144.38 lb BMI (Body Mass Index) 30.2 kg/m2 Results Description No Information Available Procedures Date Code Description Status 11/18/2019 95317 Debridement 6-10 Nails Electric Completed Medical Devices Description No Information Available Encounters Type Date Location Provider Dx Diagnosis Office Visit 11/18/2019 10:15a [facility] Jose J Montesinos DPM M79.676 Pain in unspecified toe(s) B35.1 Tinea unguium L60.0 Ingrowing nail Assessments Date Code Description Provider 11/18/2019 M79.676 Pain in unspecified toe(s) Josue Montesinos DPM 11/18/2019 B35.1 Tinea unguium Jose J Montesinos DPM 11/18/2019 L60.0 Ingrowing nail Jose J Montesinos DPM Plan of Treatment Future Appointment(s):* 04/27/2020 11:00 am - Jose J Montesinos DPM at [facility] Functional Status Description No Information Available Mental Status Description No Information Available Referrals Description No Information Available
--- OUTSIDE RECORDS SUMMARY | 2020-03-05 15:04 | CCD ---
Author Author [facility] Syst ems Organization [email or web address] Syst ems Address Unknown Phone Unavailable Care Team Providers Care Boat Repairer Name Role Phone Ash Vences Unavailable PROBLEMS Type Condition ICD9-CM Code [id number] Code Onset Dates Condition S tatus SNOMED Code Notes Problem Vitamin D deficiency, unspecified E55.9 Active 93036126 Problem Epilepsy, unspecified, not intractable, without status epilepticus G40.909 Active 12672905 Problem Osteoporosis M81.0 Active 08163122 Problem Constipation, chronic K59.00 Active 858263138 Problem Allergic rhinitis J30.9 Active 51596680 Problem GERD (gastroesophageal reflux disease) K21.9 A ctive 345852232 Problem CP (cerebral palsy) G80.9 Active 177454369 Problem Urge incontinence N39.41 Active 52186870 Problem Hypertension, essential I10 Active 13363726 Problem History of lacunar cerebrovascular accident (CVA) Z86.73 Active 07978076520300 Problem Essential hypertension I10 Active 85349863 Problem Oropharyngeal dysphagia R13.12 Active 32670798 Problem Prostate cancer screening Z12.5 Active 173731 002 Problem 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, unspecified trigger J3 0.2 Active 521482530 Problem Dyshidrotic eczema L30.1 Active 514247245 Problem Nonintractable epilepsy with out status epilepticus, unspecified epilepsy type G40.909 Active 133559488 Problem Seizure disorder G40.909 Active 209668609 Problem Colon cancer screening Z12.11 Active 807062080 Problem Left hemiplegia G81.94 Active 129607294 ALLERGIES No Known Allergies ENCOUNTERS from 1960 to 2020-02-03 Encounter Location Date Provider Diagnosis [address] [place] [address] Jan, 020 Ash Vences Physical deconditioning R53.81 IMMUNIZATIONS Vaccine Route Administration Date Status Influenza [...] School Language: Question Answer Notes Languages spoken: Citizen Of [place] Restorationism: Question Answer Notes Restorationism No gnosticism beliefs that would impact health care. Sexual [...] with accessories DX: G80.9 Daily- medicaid # [id number] for 9999 days Feb, Active [facility] Straight 14FR/20CM 1 as directed 1 for 1 days Oc 2019 Active MiraLax - 17 grams [...] Information RESULTS No Results REASON FOR VISIT order MEDICAL (GENERAL) HISTORY Type Description Date Medical [...] c R PN/rhabdo dx 01/18/20 Surgical History [id number]-Glmofw-fxuiow 07/2013 Hospitalization History RLL PN by CXR-favor aspirati on PN given onset 7D p general anesthesia for dental procedure, seizure acitivity, new-onset HTN 10/2016 Goals Section No Information Health Concerns No Information MEDICAL EQUIPMENT No Information MENTAL STATUS No Information FUNCTIONAL STATUS No Information ASSESSMENTS Encounter Date Diagnosis Assessment Notes Treatment Notes Treatm ent Clinical Notes Jan, Physical deconditioning (ICD-10 - R53.81) PLAN OF TREATMENT Medication Medication Name Sig [...] Name:Ash Vences, 2020-04-02 0 9:30:00 AM, [address] [place], [address], Insurance Providers Payer Name Payer Address Payer Phone Insured Name Patient Relati onship to Insured Coverage Start Date Coverage End Date MEDICARE Part A and B [address] [facility] [id number] [place] self MEDICAID [employer] [address] [facility] [id number] [place] self
--- OUTSIDE RECORDS SUMMARY | 2020-03-05 15:05 | CCD | Continuity of Care Document ---
Author Organization Unknown Address Unknown Phone Unavailable Care Team Providers Care Staffing Associate Name Role Phone Ash Vences M.D. AUTM [phone] Problems Description No Information Available Social History [...] 70mg Tablets Unknown Calcium-Carb 600 + D [id number] Tablets Unknown Immunizations Description No Information Available Vital Signs Date Vital Result Comment 02/24/2019 3:39pm BP Systolic 122 mmHg BP Diastolic 70 mmHg Heart Rate 72 /min Respiratory Rate 16 /min 11/19/2018 6:25am BP Systolic 118 mmHg BP Diastolic 80 mmHg Heart Rate 72 /min Respiratory Rate 16 /min Results Test Acquired Date Facility Test Result H/L Range Note CBC With Differential 01/30/2020 [facility] White Blood Count 5.4 10 Normal 4.0-10.0 [...] 36.0-66.0 Lymph % 36.6 % Normal 24.0-44.0 Vigo % 13.8 % High 0.0-5.0 Eos % 1.1 % Normal 0.0-3.0 Baso % 0.6 % Normal 0.0-1.0 Immature Granulocyte % 0.4 % Normal 0-3.0 Nucleated Red Blood Cell % 0.0 % Normal 0-0 Neutrophils # 2.5 10 Normal 1.5-8.5 Lymph # 2.0 10 Normal 1.5-5.0 Vigo # 0.7 10 Normal 0.0-0.8 Eos # 0.1 10 Normal 0.0-0.5 Baso # 0.0 10 Normal 0.0-0.2 Comprehensive Metabolic Profil 01/30/2020 [facility] Glucose, Fasting 164 mg/dL High 70-100 Blood [...] Ratio 0.9 Normal Laboratory test finding 01/30/2020 [facility] CPK Creatine Phosphokinase 82 U/L Normal 39-308 2 Phenytoin (Dilantin) 17.4 UG/ML Normal 10.0-20.0 3 Phenobarbital Level 35.3 UG/ML Normal 15.0-40.0 4 Laboratory test finding 10/26/2019 [facility] Phenytoin (Dilantin) 15.1 UG/ML Normal 10.0-20.0 5 Laboratory test finding 09/28/2019 [facility] Phenytoin (Dilantin) 22.2 UG/ML High 10.0-20.0 6 CBC With Differential 09/08/2019 [facility] White Blood Count 6.3 10 Normal 4.0-10.0 [...] 36.0-66.0 Lymph % 28.6 % Normal 24.0-44.0 Vigo % 13.0 % High 0.0-5.0 Eos % 2.2 % Normal 0.0-3.0 Baso % 0.3 % Normal 0.0-1.0 Immature Granulocyte % 0.3 % Normal 0-3.0 Nucleated Red Blood Cell % 0.0 % Normal 0-0 Neutrophils # 3.5 10 Normal 1.5-8.5 Lymph # 1.8 10 Normal 1.5-5.0 Vigo # 0.8 10 Normal 0.0-0.8 Eos # 0.1 10 Normal 0.0-0.5 Baso # 0.0 10 Normal 0.0-0.2 Laboratory test finding 09/08/2019 [facility] Ast/Sgot 16 U/L Normal 7-37 7 Alt/SGPT 25 U/L Normal 12-78 8 Phenytoin (Dilantin) 8.8 UG/ML Low 10.0-20.0 9 Phenobarbital Level 29.1 UG/ML Normal 15.0-40.0 10 Levetiracetam (Keppra) 20.7 ug/mL Normal 10.0-40.0 11 Laboratory test finding 08/09/2019 [facility] Phenytoin (Dilantin) 8.2 UG/ML Low 10.0-20.0 12 1 Units are mL/min/1.73 m2 Chronic Kidney Disease Staging per NKF: Stage I & II GFR >=60 Normal to Mildly Decreased Stage III GFR 30-59 Moderately Decreased Stage IV GFR 15-29 Severely Decreased Stage V GFR <15 Very Little GFR Left ESRD GFR <15 on CLINICAL NURSING DIRECTOR 2 note:<nlbl:demographic_chang ed> 3 note:<nlbl:demographic_chang ed> 4 note:<nlbl:demographic_chang ed> 5 note:<nlbl:demographic_chang ed> 6 note:<nlbl:demographic_chang ed> 7 note:<nlbl:demographic_chang ed> 8 note:<nlbl:demographic_chang ed> 9 note:<nlbl:demographic_chang ed> 10 note:<nlbl:demographic_chang ed> 11 This test was developed and its performance characteristics determined by [facility]. It has not been cleared or approved by the Food and Drug Administration. 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 12/06/2019 G40.309 Generalized idiopathic epilepsy and epileptic syndromes, not Lakisha Jackson, P.A.-C. 12/06/2019 G80.2 Spastic hemiplegic cerebral pals y Lakisha Jackson P.A.-C. 12/06/2019 R26.2 Difficulty in walking, not elsew here classified Lakisha Jackson P.A.-C. 12/06/2019 F78 Other intellectual disabilities Stefan Ness.A.-C. 09/01/2019 G40.309 Generalized idiopathic epilepsy and epileptic syndromes, not Lakisha Jackson, P.A.-C. 09/01/2019 I63.89 Other cerebral infarction Lakisha Jackson P.A.-C. 09/01/2019 G80.2 Spastic hemiplegic cerebral pals y Lakisha Jackson, P.A.-C. 09/01/2019 R26.2 Difficulty in walking, not elsew here classified Lakisha Jackson, P.A.-C. 09/01/2019 F78 Other intellectual disabilities Stefan Ness.A.-C. Plan of Treatment Future Appointment(s):* 03/08/2020 11:15 am - Stefan Ness.A.-C. at [facility] 12/06/2019 - Chris NessA.-C.* I63.89 Other cerebral infarction* Comments:* Not recurrent. [...] Status Appt Date Sarina Holt M.D. Created [facility] [place] [address] [phone]
--- OUTSIDE RECORDS SUMMARY | 2020-03-05 15:05 | CCD ---
Author Author [facility]st [facility] Organization [facility] [employer] [facility] em[facility] Address Unknown Phone Unavailable Care Team Providers Care Radiology Technologist Name Role Phone Ash Vences Unavailable PROBLEMS Type Condition ICD9-CM Code [id number] Code Onset Dates Condition S tatus SNOMED Code Notes Problem Vitamin D deficiency, unspecified E55.9 Active 89452978 Problem Epilepsy, unspecified, not intractable, without status epilepticus G40.909 Active 15445576 Problem Osteoporosis M81.0 Active 44245587 Problem Constipation, chronic K59.00 Active 284021462 Problem Allergic rhinitis J30.9 Active 99220766 Problem GERD (gastroesophageal reflux disease) K21.9 A ctive 845042186 Problem CP (cerebral palsy) G80.9 Active 329678036 Problem Urge incontinence N39.41 Active 71663089 Problem Hypertension, essential I10 Active 36209230 Problem History of lacunar cerebrovascular accident (CVA) Z86.73 Active 11741756990588 Problem Essential hypertension I10 Active 96375371 Problem Oropharyngeal dysphagia R13.12 Active 96989887 Problem Prostate cancer screening Z12.5 Active 850522 002 Problem 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, unspecified trigger J3 0.2 Active 220055204 Problem Dyshidrotic eczema L30.1 Active 290132372 Problem Nonintractable epilepsy with out status epilepticus, unspecified epilepsy type G40.909 Active 310845247 Problem Seizure disorder G40.909 Active 850444191 Problem Colon cancer screening Z12.11 Active 943480419 Problem Left hemiplegia G81.94 Active 269496444 ALLERGIES No Known Allergies ENCOUNTERS from 1960 to 2019-12-23 Encounter Location Date Provider Diagnosis [address] [place] [address] Dec, 020 Ash Vences IMMUNIZATIONS Vaccine Route Administration [...] School Language: Question Answer Notes Languages spoken: German Hindu: Question Answer Notes Hindu No hinduism beliefs that would impact health care. Sexual [...] MEDICATIONS Medication SIG (Take, Route, Frequency, Duration) Start Date En d Date Status Phenytoin Sodium 100 MG 1 capsule Orally bid for 30 day(s) Active Fleet Enema 7-19 GM/118ML as directed Rectal PRN if no BM in 3 days for 2 days Nov, Active Reclast 5 MG/100ML as directed Intravenous Nov, Active Wheelchair _ Ifeanyi height manual wheelchai r with accessories DX: G80.9 Daily- medicaid # [id number] for 9999 days Feb, Active Reclast 5 MG/100ML 1 Intravenous annually Active Flonase Allergy Relief 50 MCG/ACT 1 spray in each nost ril Nasally Once a day for 30 day(s) Nov, Active Levetiracetam 750 MG 1 tablet Orally Twice a day Active Phenobarbital 32.4 MG 1 tablet Orally Three times a day MDD=3 f or 30 day(s) Active Multivitamins OTC 1 tablet Orally Once a day for 30 day(s) Active Montelukast Sodium 10 MG 1 tablet Orally before bedtime for 30 day(s) Nov, Active Lansoprazole 30 MG TAKE ONE CAPSULE BY MOUTH ONCE DAILY BEFORE D INNER for 30 Active Senokot 8.6 MG 2 tablets at bedtime as needed Orally at bedtime for 30 days Active Calcium 600 + D 600-400 MG-UNIT 1 tablet Orally Twice a day Active ClearLax 17 GM/SCOOP TAKE 17 GRAMS BY MOUTH IN EI GHT OUNCES OF LIQUID ONCE DAILY for 30 Active Nitrofurantoin Monohyd Macro 100 MG 1 capsule at bedti me with food Orally bid for 5 day(s) Jul, Active Vitamin D (Cholecalciferol) 50 MCG (1999 UT) 1 tab Ora lly once a day for 90 day(s) Active Aspir-81 81 MG 1 tablet Orally Once a day for 90 day(s) Active Peridex 0.12 % 15 ml Mouth/Throat twice a day for 15 Active Valium 5 MG 1 tablet Orally 30 minutes b efore procedures & dental appts as needed for 1 days May, Active AmLODIPine Besylate 2.5 MG 1 tablet Orally Once a day for 30 Active MiraLax - 17 grams with 8 ounces of fluid Orally Once a day for 30 Active Chlorthalidone 25 MG 1 tablet Orally every morning for 90 day(s) Jul, Active Claritin 10 MG 1 tablet Orally Once a day for 30 Active May Have - as directed straight cath to collect UA/UC N39.0 2019 Active Oxybutynin Chloride ER 5 MG 1 tablet Orally Once a day for 30 Active InCare Straight 14FR/20CM 1 as directed 1 for 1 days Nov, Active Bisacodyl 10 MG 1 suppository as needed Rect al Once a day PRN if no BM for 5 day(s) Nov, Active PROCEDURES No Information RESULTS No Results REASON FOR VISIT order clarification MEDICAL (GENERAL) HISTORY Type Description Date Medical History osteoporosis, senile with hi story of right fibula spiral fracture December 2007 Medical History seizure disorder Medical History allergic rhinitis Medical History urge incontinence Medical History constipation, chronic Medical History mental retardation, profound Medical History cerebral palsy Medical History + H pylori Ab 5.9 (0-0.80)-rxed c bis/om ep/doxy/metro 14D Medical History hypetension-new onset 10/2016 c admission for RLL PN-10/2016 normal B renal US s [facility] Medical History multiple 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, B occipital/temporal/parietal encephalmalacia by 10/19/18 MRI Medical History 12/2018 RML PN-rxed levo 21D Surgical History [id number]-[id number] 07/2013 Hospitalization History RLL PN by CXR-favor aspirati on PN given onset 7D p general anesthesia for dental procedure, seizure acitivity, new-onset HTN 10/2016 Goals Section No Information Health Concerns No Information MEDICAL EQUIPMENT No Information MENTAL STATUS No Information FUNCTIONAL STATUS No Information ASSESSMENTS No Information PLAN OF TREATMENT Medication Medication Name Sig Start Date Stop Date Senokot 8.6 MG 2 tablets at bedtime as needed Orally at bedtime for 30 days AmLODIPine Besylate 2.5 MG 1 tablet Orally Once a day for 30 Aspir-81 81 MG 1 tablet Orally Once a day for 90 day(s) Lansoprazole 30 MG TAKE ONE CAPSULE BY MOUTH ONCE DAILY BEFORE D INNER for 30 Montelukast Sodium 10 MG 1 tablet Orally before bedtime for 30 day(s) Nov, Reclast 5 MG/100ML as directed Intravenous Nov, ClearLax 17 GM/SCOOP TAKE 17 GRAMS BY MOUTH IN EI GHT OUNCES OF LIQUID ONCE DAILY for 30 Flonase Allergy Relief 50 MCG/ACT 1 spray in each nost ril Nasally Once a day for 30 day(s) Nov, Valium 5 MG 1 tablet Orally 30 minutes b efore procedures & dental appts as needed for 1 days May, Next Appt Details Provider Name:Millie Almonte, 2019-03-04 01:00:00 PM, [address] [place], [address], Insurance Providers Payer Name Payer Address Payer Phone Insured Name Patient Relati onship to Insured Coverage Start Date Coverage End Date MEDICARE Part A and B [address] [facility] [phone] NKECHI OSPINA self MEDICAID [employer] [address] [facility] [address] NKECHI OSPINA
--- OUTSIDE RECORDS SUMMARY | 2020-03-05 15:05 | CCD ---
Author Author [facility] Syst ems Organization [facility] [employer] [facility] [facility] Address Unknown Phone Unavailable Care Team Providers Care Associate Software Engineer Name Role Phone Ash Vences Unavailable PROBLEMS Type Condition ICD9-CM Code [id number] Code Onset Dates Condition S tatus SNOMED Code Notes Problem Vitamin D deficiency, unspecified E55.9 Active 50171756 Problem Epilepsy, unspecified, not intractable, without status epilepticus G40.909 Active 20391174 Problem Osteoporosis M81.0 Active 57054782 Problem Constipation, chronic K59.00 Active 035883398 Problem Allergic rhinitis J30.9 Active 72609330 Problem GERD (gastroesophageal reflux disease) K21.9 A ctive 771264985 Problem CP (cerebral palsy) G80.9 Active 577508137 Problem Urge incontinence N39.41 Active 72943070 Problem Hypertension, essential I10 Active 81900554 Problem History of lacunar cerebrovascular accident (CVA) Z86.73 Active 43803169368337 Problem Essential hypertension I10 Active 64120812 Problem Oropharyngeal dysphagia R13.12 Active 97289183 Problem Prostate cancer screening Z12.5 Active 478333 002 Problem 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, unspecified trigger J3 0.2 Active 129760667 Problem Dyshidrotic eczema L30.1 Active 081968298 Problem Nonintractable epilepsy with out status epilepticus, unspecified epilepsy type G40.909 Active 531132108 Problem Seizure disorder G40.909 Active 965233487 Problem Colon cancer screening Z12.11 Active 075810517 Problem Left hemiplegia G81.94 Active 469829834 ALLERGIES No Known Allergies ENCOUNTERS from 1960 to 2020-01-21 Encounter Location Date Provider Diagnosis [address] [place] [address] Jan, 020 Ash Vences IMMUNIZATIONS Vaccine Route [...] Language: Question Answer Notes Languages spoken: Armenian Pentecostal: Question Answer Notes Pentecostal No samaritan beliefs that would impact health care. Sexual [...] with accessories DX: G80.9 Daily- medicaid # [id number] for 9999 days Feb, Active InCare Straight [...] Information RESULTS No Results REASON FOR VISIT No Information MEDICAL (GENERAL) HISTORY Type Description Date Medical [...] c R PN/rhabdo dx 01/18/20 Surgical History [id number] 07/2013 Hospitalization History RLL PN by CXR-favor [...] Name:Ash Vences, 2020-04-02 0 9:30:00 AM, [address] [place], [address], Insurance Providers Payer Name Payer Address Payer Phone Insured Name Patient Relati onship to Insured Coverage Start Date Coverage End Date MEDICARE Part A and B [address] [facility] [id number] NKECHI OSPINA self MEDICAID [employer] [address] [facility] [id number] NKECHI OSPINA self
--- OUTSIDE RECORDS SUMMARY | 2020-03-05 15:05 | CCD ---
Author Author [facility] Syst ems Organization [facility] [employer] [facility] Address Unknown Phone Unavailable Care Team Providers Care Press Operator [employer] Products Name Role Phone Ash Vences Unavailable PROBLEMS Type Condition ICD9-CM Code RUM65-MU Code Onset Dates Condition S tatus SNOMED Code Notes Problem Vitamin D deficiency, unspecified E55.9 Active 86414371 Problem Epilepsy, unspecified, not intractable, without status epilepticus G40.909 Active 32889946 Problem Osteoporosis M81.0 Active 10247250 Problem Constipation, chronic K59.00 Active 129916792 Problem Allergic rhinitis J30.9 Active 17504139 Problem GERD (gastroesophageal reflux disease) K21.9 A ctive 469340889 Problem CP (cerebral palsy) G80.9 Active 718939104 Problem Urge incontinence N39.41 Active 53652786 Problem Hypertension, essential I10 Active 45053045 Problem History of lacunar cerebrovascular accident (CVA) Z86.73 Active 94410500615540 Problem Essential hypertension I10 Active 94342545 Problem Oropharyngeal dysphagia R13.12 Active 33138689 Problem Prostate cancer screening Z12.5 Active 868090 002 Problem 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, unspecified trigger J3 0.2 Active 458918253 Problem Dyshidrotic eczema L30.1 Active 664539570 Problem Nonintractable epilepsy with out status epilepticus, unspecified epilepsy type G40.909 Active 785980299 Problem Seizure disorder G40.909 Active 058862943 Problem Colon cancer screening Z12.11 Active 416498728 Problem Left hemiplegia G81.94 Active 633195253 ALLERGIES No Known Allergies ENCOUNTERS from 1960 to 2020-01-20 Encounter Location Date Provider Diagnosis [address] [place] [address] Jan, 020 Ash Vences Allergic rhinitis J30.9 IMMUNIZATIONS Vaccine Route Administration Date Status Influenza [...] School Language: Question Answer Notes Languages spoken: Uzbek Pentecostal: Question Answer Notes Pentecostal No rastafarian beliefs that would impact health care. Sexual [...] with accessories DX: G80.9 Daily- medicaid # [id number] for 9999 days Feb, Active InCare Straight [...] Information RESULTS No Results REASON FOR VISIT loratadine MEDICAL (GENERAL) HISTORY Type Description Date Medical [...] c R PN/rhabdo dx 01/18/20 Surgical History [id number]-tavwka 07/2013 Hospitalization History RLL PN by CXR-favor aspirati on PN given onset 7D p general anesthesia for dental procedure, seizure acitivity, new-onset HTN 10/2016 Goals Section No Information Health Concerns No Information MEDICAL EQUIPMENT No Information MENTAL STATUS No Information FUNCTIONAL STATUS No Information ASSESSMENTS Encounter Date Diagnosis Assessment Notes Treatment Notes Treatm ent Clinical Notes Jan, Allergic rhinitis (ICD-10 - J30.9) PLAN OF TREATMENT Medication Medication Name Sig [...] Name:Ash Vences, 2020-04-02 0 9:30:00 AM, [address] [place], [address], Insurance Providers Payer Name Payer Address Payer Phone Insured Name Patient Relati onship to Insured Coverage Start Date Coverage End Date MEDICARE Part A and B [address] [facility] [address] NKECHI OSPINA self MEDICAID [employer] [address] [facility] [address] [phone] NKECHI OSPINA self
--- OUTSIDE RECORDS SUMMARY | 2020-03-05 15:05 | CCD ---
Author Author [facility] Syst ems Organization [facility] [employer] Syst em[facility] Address Unknown Phone Unavailable Care Team Providers Care Electrician'S Assistant Name Role Phone Ash Vences Unavailable PROBLEMS Type Condition ICD9-CM Code SMG93-DB Code Onset Dates Condition S tatus SNOMED Code Notes Problem Vitamin D deficiency, unspecified E55.9 Active 11007896 Problem Epilepsy, unspecified, not intractable, without status epilepticus G40.909 Active 49232750 Problem Osteoporosis M81.0 Active 42565085 Problem Constipation, chronic K59.00 Active 028595889 Problem Allergic rhinitis J30.9 Active 08259415 Problem GERD (gastroesophageal reflux disease) K21.9 A ctive 885074700 Problem CP (cerebral palsy) G80.9 Active 701657802 Problem Urge incontinence N39.41 Active 01556492 Problem Hypertension, essential I10 Active 63286138 Problem History of lacunar cerebrovascular accident (CVA) Z86.73 Active 42433827256466 Problem Essential hypertension I10 Active 96237327 Problem Oropharyngeal dysphagia R13.12 Active 36033811 Problem Prostate cancer screening Z12.5 Active 747156 002 Problem 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, unspecified trigger J3 0.2 Active 235643376 Problem Dyshidrotic eczema L30.1 Active 428174386 Problem Nonintractable epilepsy with out status epilepticus, unspecified epilepsy type G40.909 Active 674631613 Problem Seizure disorder G40.909 Active 804488553 Problem Colon cancer screening Z12.11 Active 290655824 Problem Left hemiplegia G81.94 Active 113728175 ALLERGIES No Known Allergies ENCOUNTERS from 1960 to 2019-12-26 Encounter Location Date Provider Diagnosis [address] [place] [address] Dec, 020 Ash Vences IMMUNIZATIONS Vaccine Route [...] School Language: Question Answer Notes Languages spoken: Mongolian Christian: Question Answer Notes Christian No scientology beliefs that would impact health care. Sexual [...] with accessories DX: G80.9 Daily- medicaid # [id number] for 9999 days Feb, Active Reclast 5 [...] 12/2018 RML PN-rxed levo 21D Surgical History [id number]-[id number]-kqhdur 07/2013 Hospitalization History RLL PN by CXR-favor [...] Provider Name:Millie Almonte, 2019-03-04 01:00:00 PM, [address] [place], [address], Insurance Providers Payer Name Payer Address Payer Phone Insured Name Patient Relati onship to Insured Coverage Start Date Coverage End Date MEDICARE Part A and B [address] [facility] [id number] NKECHI OSPINA self MEDICAID [id number] [address] [facility] [address] NKECHI OSPINA
--- OUTSIDE RECORDS SUMMARY | 2020-03-05 15:05 | CCD ---
Author Author [facility] Syst ems Organization [facility] [employer] Syst ems Address Unknown Phone Unavailable Care Team Providers Care Scrap Stripper Hand Name Role Phone Ash Vences Unavailable PROBLEMS Type Condition ICD9-CM Code [id number] Code Onset Dates Condition S tatus SNOMED Code Notes Problem Vitamin D deficiency, unspecified E55.9 Active 48150621 Problem Epilepsy, unspecified, not intractable, without status epilepticus G40.909 Active 57698299 Problem Osteoporosis M81.0 Active 55085148 Problem Constipation, chronic K59.00 Active 985779213 Problem Allergic rhinitis J30.9 Active 01603723 Problem GERD (gastroesophageal reflux disease) K21.9 A ctive 443252800 Problem CP (cerebral palsy) G80.9 Active 154432916 Problem Urge incontinence N39.41 Active 31261597 Problem Hypertension, essential I10 Active 97169029 Problem History of lacunar cerebrovascular accident (CVA) Z86.73 Active 98124987685153 Problem Essential hypertension I10 Active 28217128 Problem Oropharyngeal dysphagia R13.12 Active 01229307 Problem Prostate cancer screening Z12.5 Active 813179 002 Problem 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, unspecified trigger J3 0.2 Active 959399812 Problem Dyshidrotic eczema L30.1 Active 603355237 Problem Nonintractable epilepsy with out status epilepticus, unspecified epilepsy type G40.909 Active 151241712 Problem Seizure disorder G40.909 Active 867675306 Problem Colon cancer screening Z12.11 Active 127825032 Problem Left hemiplegia G81.94 Active 809583035 ALLERGIES No Known Allergies ENCOUNTERS from 1960 to 2020-01-18 Encounter Location Date Provider Diagnosis [facility] [address] [place] [id number] Jan, Tonicapri era Vences IMMUNIZATIONS Vaccine Route Administration Date Status [...] School Language: Question Answer Notes Languages spoken: Divehi Church: Question Answer Notes Church No methodist beliefs that would impact health care. Sexual [...] Notes Start Da te End Date Status Lansoprazole 30 MG TAKE ONE CAPSULE BY MOUTH ONCE DAILY BEFORE D INNER for 30 Active Levetiracetam 750 MG 1 tablet Orally Twice a day Active Reclast 5 MG/100ML as directed Intravenous Nov, Active Phenobarbital 32.4 MG 1 tablet Orally Three times a day MDD=3 f or 30 day(s) Active Nitrofurantoin Monohyd Macro 100 MG 1 capsule at bedti me with food Orally bid for 5 day(s) Jul, Active Multivitamins OTC 1 tablet Orally Once a day for 30 day(s) Active Peridex 0.12 % 15 ml Mouth/Throat twice a day for 15 Active Phenytoin Sodium 100 MG 1 capsule Orally bid for 30 day(s) Active Flonase Allergy Relief 50 MCG/ACT 1 spray in each nost ril Nasally Once a day for 30 day(s) Nov, Active Valium 5 MG 1 tablet Orally 30 minutes b efore procedures & dental appts as needed for 1 days May, Active Reclast 5 MG/100ML 1 Intravenous annually Active Calcium Carbonate-Vitamin D 600-400 MG-UNIT TAKE ONE T ABLET BY MOUTH TWICE DAILY for 30 Active Vitamin D (Cholecalciferol) 50 MCG (1999) 1 tab Ora lly once a day for 90 day(s) Active Oxybutynin Chloride ER 5 MG 1 tablet Orally Once a day Active AmLODIPine Besylate 2.5 MG 1 tablet Orally Once a day for 30 Active ClearLax 17 GM/SCOOP TAKE 17 GRAMS BY MOUTH IN EI GHT OUNCES OF LIQUID ONCE DAILY for 30 Active Fleet Enema 7-19 GM/118ML as directed Rectal PRN if no BM in 3 days for 2 days Nov, Active Senokot 8.6 MG 1 tablet Orally at bedtime for 30 day(s) Active Calcium 600 + D 600-400 MG-UNIT 1 tablet Orally Twice a day Active Wheelchair _ Ifeanyi height manual wheelchai r with accessories DX: G80.9 Daily- medicaid # [id number] for 9999 days Feb, Active Aspir-81 81 MG 1 tablet Orally Once a day for 90 day(s) Active Montelukast Sodium 10 MG 1 tablet Orally before bedtime for 30 d ay(s) Nov, Active Triamcinolone Acetonide 0.1 % 1 application to affecte d area Externally Twice a day x 10D to feet c eczema flare for 90 day(s) Active MiraLax - 17 grams with 8 ounces of fluid Orally Once a day for 30 Active Claritin 10 MG 1 tablet Orally Once a day for 30 day(s) Active AmLODIPine Besylate 2.5 MG 1 tablet Orally 1900 for 90 day(s) Active May Have - as directed straight cath to collect UA/UC N39.0 Nov, Active Chlorthalidone 25 MG 1 tablet Orally every morning for 90 day(s) Active InCare Straight 14FR/20CM 1 as directed 1 for 1 days 2019 Active Bisacodyl 10 MG 1 suppository as needed Rect al Once a day PRN if no BM for 5 day(s) Nov, Active PROCEDURES No Information RESULTS No Results REASON FOR VISIT swollen glands,sore throat, MEDICAL (GENERAL) HISTORY Type Description Date Medical [...] Rt M Lobe PNeumonia-rxed levo 21 D Surgical History [id number]-Swsktb-fzktns 07/2013 Hospitalization History RLL PN by CXR-favor aspirati on PN given onset 7D p general anesthesia for dental procedure, seizure acitivity, new-onset HTN 10/2016 Goals Section No Information Health Concerns No Information MEDICAL EQUIPMENT No Information MENTAL STATUS No Information FUNCTIONAL STATUS No Information ASSESSMENTS No Information PLAN OF TREATMENT Medication Medication Name Sig Start Date Stop Date AmLODIPine Besylate 2.5 MG 1 tablet Orally 1900 for 90 day(s) Chlorthalidone 25 MG 1 tablet Orally every morning for 90 day(s) Triamcinolone Acetonide 0.1 % 1 application to affecte d area Externally Twice a day x 10D to feet c eczema flare for 90 day(s) AmLODIPine Besylate 2.5 MG 1 tablet Orally Once a day for 30 ClearLax 17 GM/SCOOP TAKE 17 GRAMS BY MOUTH IN EI GHT OUNCES OF LIQUID ONCE DAILY for 30 Phenytoin Sodium 100 MG 1 capsule Orally bid for 30 day(s) Calcium 600 + D 600-400 MG-UNIT 1 tablet Orally Twice a day Levetiracetam 750 MG 1 tablet Orally Twice a day Reclast 5 MG/100ML 1 Intravenous annually Multivitamins OTC 1 tablet Orally Once a day for 30 day(s) Claritin 10 MG 1 tablet Orally Once a day for 30 day(s) Senokot 8.6 MG 1 tablet Orally at bedtime for 30 day(s) Flonase Allergy Relief 50 MCG/ACT 1 spray in each nost ril Nasally Once a day for 30 day(s) Nov, Vitamin D (Cholecalciferol) 50 MCG (2000 UT) 1 tab Ora lly once a day for 90 day(s) Oxybutynin Chloride ER 5 MG 1 tablet Orally Once a day Reclast 5 MG/100ML as directed Intravenous Nov, Montelukast Sodium 10 MG 1 tablet Orally before bedtime for 30 day(s) Nov, Calcium Carbonate-Vitamin D 600-400 MG-UNIT TAKE ONE T ABLET BY MOUTH TWICE DAILY for 30 Valium 5 MG 1 tablet Orally 30 minutes b efore procedures & dental appts as needed for 1 days May, Lansoprazole 30 MG TAKE ONE CAPSULE BY MOUTH ONCE DAILY BEFORE D INNER for 30 Phenobarbital 32.4 MG 1 tablet Orally Three times a day MDD=3 f or 30 day(s) Aspir-81 81 MG 1 tablet Orally Once a day for 90 day(s) Next Appt Details Provider Name:Ash Vences, 2020-04-02 0 9:30:00 AM, [address] [address], [id number], Insurance Providers Payer Name Payer Address Payer Phone Insured Name Patient Relati onship to Insured Coverage Start Date Coverage End Date MEDICAID [employer] [address] [facility] [address] [place] MEDICARE Part A and B [address] [facility] [phone] [place]
--- OUTSIDE RECORDS SUMMARY | 2020-03-05 15:05 | CCD ---
Author Author [facility] Syst ems Organization [facility] [employer] Syst ems Address Unknown Phone Unavailable Care Team Providers Care Java Developer Analyst Name Role Phone Ash Vences Unavailable PROBLEMS Type Condition ICD9-CM Code [id number] Code Onset Dates Condition S tatus SNOMED Code Notes Problem Vitamin D deficiency, unspecified E55.9 Active 81235745 Problem Epilepsy, unspecified, not intractable, without status epilepticus G40.909 Active 74484146 Problem Osteoporosis M81.0 Active 73791082 Problem Constipation, chronic K59.00 Active 477971974 Problem Allergic rhinitis J30.9 Active 19028200 Problem GERD (gastroesophageal reflux disease) K21.9 A ctive 653718263 Problem CP (cerebral palsy) G80.9 Active 032993518 Problem Urge incontinence N39.41 Active 02844220 Problem Hypertension, essential I10 Active 02434763 Problem History of lacunar cerebrovascular accident (CVA) Z86.73 Active 23168723965134 Problem Essential hypertension I10 Active 81506918 Problem Oropharyngeal dysphagia R13.12 Active 98626073 Problem Prostate cancer screening Z12.5 Active 274728 002 Problem 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, unspecified trigger J3 0.2 Active 957778599 Problem Dyshidrotic eczema L30.1 Active 634891391 Problem Nonintractable epilepsy with out status epilepticus, unspecified epilepsy type G40.909 Active 403676750 Problem Seizure disorder G40.909 Active 842066354 Problem Colon cancer screening Z12.11 Active 864004012 Problem Left hemiplegia G81.94 Active 144003653 ALLERGIES No Known Allergies ENCOUNTERS from 1960 to 2020-01-20 Encounter Location Date Provider Diagnosis [address] [place] [address] Jan, 020 Ash Vences IMMUNIZATIONS Vaccine Route [...] Language: Question Answer Notes Languages spoken: Uzbek Evangelical: Question Answer Notes Evangelical No yazidi beliefs that would impact health care. Sexual [...] with accessories DX: G80.9 Daily- medicaid # [id number] for 9999 days Feb, Active InCare Straight [...] Information RESULTS No Results REASON FOR VISIT + Covid test MEDICAL (GENERAL) HISTORY Type Description Date Medical [...] c R PN/rhabdo dx 01/18/20 Surgical History uegasobfhwp-Pizjbj-jlgyjq 07/2013 Hospitalization History RLL PN by CXR-favor [...] Name:Ash Vences, 2020-04-02 0 9:30:00 AM, [address] [place], [address], Insurance Providers Payer Name Payer Address Payer Phone Insured Name Patient Relati onship to Insured Coverage Start Date Coverage End Date MEDICARE Part A and B [address] [facility] [phone] [place] self MEDICAID [employer] [address] [facility] [address] [place] self
--- OUTSIDE RECORDS SUMMARY | 2020-03-05 15:05 | CCD ---
Author Author [facility] Syst ems Organization [facility] [employer] Syst ems Address Unknown Phone Unavailable Care Team Providers Care Home Health Specialist Name Role Phone Ash Vences Unavailable PROBLEMS Type Condition ICD9-CM Code DYX23-IC Code Onset Dates Condition S tatus SNOMED Code Notes Problem Vitamin D deficiency, unspecified E55.9 Active 62749158 Problem Epilepsy, unspecified, not intractable, without status epilepticus G40.909 Active 06263679 Problem Osteoporosis M81.0 Active 74767041 Problem Constipation, chronic K59.00 Active 908550276 Problem Allergic rhinitis J30.9 Active 36806573 Problem GERD (gastroesophageal reflux disease) K21.9 A ctive 438517085 Problem CP (cerebral palsy) G80.9 Active 987168084 Problem Urge incontinence N39.41 Active 41650129 Problem Hypertension, essential I10 Active 90292473 Problem History of lacunar cerebrovascular accident (CVA) Z86.73 Active 88019850755190 Problem Essential hypertension I10 Active 77034056 Problem Oropharyngeal dysphagia R13.12 Active 31107656 Problem Prostate cancer screening Z12.5 Active 010438 002 Problem 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, unspecified trigger J3 0.2 Active 634148978 Problem Dyshidrotic eczema L30.1 Active 398391439 Problem Nonintractable epilepsy with out status epilepticus, unspecified epilepsy type G40.909 Active 007128607 Problem Seizure disorder G40.909 Active 638589183 Problem Colon cancer screening Z12.11 Active 956903938 Problem Left hemiplegia G81.94 Active 212638754 ALLERGIES No Known Allergies ENCOUNTERS from 1960 to 2019-12-29 Encounter Location Date Provider Diagnosis [address] [place] [address] Dec, 020 Ash Vences IMMUNIZATIONS Vaccine Route [...] School Language: Question Answer Notes Languages spoken: Polish Quaker: Question Answer Notes Quaker No sabianist beliefs that would impact health care. Sexual [...] with accessories DX: G80.9 Daily- medicaid # [id number] for 9999 days Feb, Active Reclast 5 [...] before bedtime for 30 day(s) Nov, Active Vitamin D (Cholecalciferol) 50 MCG (1999 UT) 1 tab Ora lly once a day for 90 day(s) Active Lansoprazole 30 MG TAKE ONE CAPSULE BY MOUTH ONCE DAILY BEFORE D INNER for 30 Active AmLODIPine Besylate 2.5 MG 1 tablet Orally Once a day for 30 Active ClearLax 17 GM/SCOOP TAKE 17 GRAMS BY MOUTH IN EI GHT OUNCES OF LIQUID ONCE DAILY for 30 Active Nitrofurantoin Monohyd Macro 100 MG 1 capsule at bedti me with food Orally bid for 5 day(s) Jul, Active Senokot 8.6 MG 2 tablets at bedtime as needed Orally at bedtime for 30 days Active Aspir-81 81 MG 1 tablet Orally Once a day for 90 day(s) Active Peridex 0.12 % 15 ml Mouth/Throat twice a day for 15 Active Valium 5 MG 1 tablet Orally 30 minutes b efore procedures & dental appts as needed for 1 days May, Active Chlorthalidone 25 MG 1 tablet Orally every morning for 90 day(s) Jul, Active MiraLax - 17 grams with 8 ounces of fluid Orally Once a day for 30 Active Oxybutynin Chloride ER 5 MG 1 tablet Orally Once a day for 30 Days Active Calcium 600 + D 600-400 MG-UNIT 1 tablet Orally Twice a day Active May Have - as directed straight cath to collect UA/UC N39.0 Oc 2019 Active Claritin 10 MG 1 tablet Orally Once a day for 30 Active InCare Straight 14FR/20CM 1 as directed 1 for 1 days Nov, Active Bisacodyl 10 MG 1 suppository as needed Rect al Once a day PRN if no BM for 5 day(s) Nov, Active PROCEDURES No Information RESULTS No Results REASON FOR VISIT Refill MEDICAL (GENERAL) HISTORY Type Description Date Medical [...] 12/2018 RML PN-rxed levo 21D Surgical History [id number]-Rrncdm-yvthbl 07/2013 Hospitalization History RLL PN by CXR-favor [...] tablet Orally Once a day for 30 Lansoprazole 30 MG TAKE ONE CAPSULE BY MOUTH ONCE DAILY BEFORE D INNER for 30 Montelukast Sodium 10 MG 1 tablet Orally before bedtime for 30 day(s) Nov, Oxybutynin Chloride ER 5 MG 1 tablet Orally Once a day for 30 Da ys Flonase Allergy Relief 50 MCG/ACT 1 spray in each nost ril Nasally Once a day for 30 day(s) Nov, Valium 5 MG 1 tablet Orally 30 minutes b efore procedures & dental appts as needed for 1 days May, Aspir-81 81 MG 1 tablet Orally Once a day for 90 day(s) Vitamin D (Cholecalciferol) 50 MCG (1999 UT) 1 tab Ora lly once a day for 90 day(s) Reclast 5 MG/100ML as directed Intravenous Nov, ClearLax 17 GM/SCOOP TAKE 17 GRAMS BY MOUTH IN EI GHT OUNCES OF LIQUID ONCE DAILY for 30 Next Appt Details Provider Name:Millie Almonte, 2019-02 01:00:00 PM, [address] [place], [address], Insurance Providers Payer Name Payer Address Payer Phone Insured Name Patient Relati onship to Insured Coverage Start Date Coverage End Date MEDICAID [employer] [address] [facility] [address] [place] self MEDICARE Part A and B [address] [facility] [id number] [place] self
--- OUTSIDE RECORDS SUMMARY | 2020-03-05 15:05 | CCD ---
Author Author [facility] Syst ems Organization [facility] [employer] Syst ems Address Unknown Phone Unavailable Care Team Providers Care Seat Installer Name Role Phone Ash Vences Unavailable PROBLEMS Type Condition ICD9-CM Code [id number] Code Onset Dates Condition S tatus SNOMED Code Notes Problem Vitamin D deficiency, unspecified E55.9 Active 74579820 Problem Epilepsy, unspecified, not intractable, without status epilepticus G40.909 Active 44373580 Problem Osteoporosis M81.0 Active 91774563 Problem Constipation, chronic K59.00 Active 608333603 Problem Allergic rhinitis J30.9 Active 45184422 Problem GERD (gastroesophageal reflux disease) K21.9 A ctive 762355853 Problem CP (cerebral palsy) G80.9 Active 488012386 Problem Urge incontinence N39.41 Active 01576589 Problem Hypertension, essential I10 Active 84135032 Problem History of lacunar cerebrovascular accident (CVA) Z86.73 Active 41974721573078 Problem Essential hypertension I10 Active 75122707 Problem Oropharyngeal dysphagia R13.12 Active 22918674 Problem Prostate cancer screening Z12.5 Active 687759 002 Problem 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, unspecified trigger J3 0.2 Active 404829516 Problem Dyshidrotic eczema L30.1 Active 622139106 Problem Nonintractable epilepsy with out status epilepticus, unspecified epilepsy type G40.909 Active 232495135 Problem Seizure disorder G40.909 Active 355313405 Problem Colon cancer screening Z12.11 Active 285274452 Problem Left hemiplegia G81.94 Active 281504190 ALLERGIES No Known Allergies ENCOUNTERS from 1960 to 2020-01-10 Encounter Location Date Provider Diagnosis [address] [place] [address] Dec, 020 Ash Vences IMMUNIZATIONS Vaccine Route [...] School Language: Question Answer Notes Languages spoken: Frisian Pentecostalism: Question Answer Notes Pentecostalism No jain beliefs that would impact health care. Sexual [...] Notes Start Da te End Date Status Reclast 5 MG/100ML as directed Intravenous Nov, Active Lansoprazole 30 MG 1 capsule Orally AC dinner for 30 day(s) Active MiraLax - 17 grams with 8 ounces of fluid Orally Once a day for 30 Active Phenobarbital 32.4 MG 1 tablet Orally Three times a day MDD=3 f or 30 day(s) Active Nitrofurantoin Monohyd Macro 100 MG 1 capsule at bedti me with food Orally bid for 5 day(s) Jul, Active Phenytoin Sodium 100 MG 1 capsule Orally bid for 30 day(s) Active Peridex 0.12 % 15 ml Mouth/Throat twice a day for 15 Active Levetiracetam 750 MG 1 tablet Orally Twice a day Active Reclast 5 MG/100ML 1 Intravenous annually Active Valium 5 MG 1 tablet Orally 30 minutes b efore procedures & dental appts as needed for 1 days May, Active Multivitamins OTC 1 tablet Orally Once a day for 30 day(s) Active Flonase Allergy Relief 50 MCG/ACT 1 spray in each nost ril Nasally Once a day for 30 day(s) Nov, Active Lansoprazole 30 MG TAKE ONE CAPSULE BY MOUTH ONCE DAILY BEFORE D INNER for 30 Active Oxybutynin Chloride ER 5 MG 1 tablet Orally Once a day Active AmLODIPine Besylate 2.5 MG 1 tablet Orally Once a day for 30 Active Calcium 600 + D 600-400 MG-UNIT 1 tablet Orally Twice a day Active Fleet Enema 7-19 GM/118ML as directed Rectal PRN if no BM in 3 days for 2 days Nov, Active Senokot 8.6 MG 1 tablet Orally at bedtime for 30 day(s) Active Vitamin D (Cholecalciferol) 50 MCG (1999 UT) 1 tab Ora lly once a day for 90 day(s) Active Wheelchair _ Ifeanyi height manual wheelchai r with accessories DX: G80.9 Daily- medicaid # [id number] for 9999 days Feb, Active Aspir-81 81 MG 1 tablet Orally Once a day for 90 day(s) Active Montelukast Sodium 10 MG 1 tablet Orally before bedtime for 30 d ay(s) Nov, Active Triamcinolone Acetonide 0.1 % 1 application to affecte d area Externally Twice a day x 10D to feet c eczema flare for 90 day(s) Active ClearLax 17 GM/SCOOP TAKE 17 GRAMS BY MOUTH IN EI GHT OUNCES OF LIQUID ONCE DAILY for 30 Active Claritin 10 MG 1 [...] Information RESULTS No Results REASON FOR VISIT no show MEDICAL (GENERAL) HISTORY Type Description Date Medical [...] Lobe PNeumonia-rxed levo 21 D Surgical History iozpuyenljx-Vwyija-dvains 07/2013 Hospitalization History RLL PN by CXR-favor [...] tablet Orally Once a day for 30 Calcium 600 + D 600-400 MG-UNIT 1 tablet Orally Twice a day Levetiracetam 750 MG 1 tablet Orally Twice a day Vitamin D (Cholecalciferol) 50 MCG (2000 UT) 1 tab Ora lly once a day for 90 day(s) Lansoprazole 30 MG 1 capsule Orally AC dinner for 30 day(s) Multivitamins OTC 1 tablet Orally Once a day for 30 day(s) Phenytoin Sodium 100 MG 1 capsule Orally bid for 30 day(s) Claritin 10 MG 1 tablet Orally Once a day for 30 day(s) Senokot 8.6 MG 1 tablet Orally at bedtime for 30 day(s) Reclast 5 MG/100ML 1 Intravenous annually Lansoprazole 30 MG TAKE ONE CAPSULE BY MOUTH ONCE DAILY BEFORE D INNER for 30 Oxybutynin Chloride ER 5 MG 1 tablet Orally Once a day ClearLax 17 GM/SCOOP TAKE 17 GRAMS BY MOUTH IN EI GHT OUNCES OF LIQUID ONCE DAILY for 30 Montelukast Sodium 10 MG 1 tablet Orally before bedtime for 30 day(s) Nov, Flonase Allergy Relief 50 MCG/ACT 1 spray in each nost ril Nasally Once a day for 30 day(s) Nov, Valium 5 MG 1 tablet Orally 30 minutes b efore procedures & dental appts as needed for 1 days May, Reclast 5 MG/100ML as directed Intravenous Nov, Phenobarbital 32.4 MG 1 tablet Orally Three times a day MDD=3 f or 30 day(s) Aspir-81 81 MG 1 tablet Orally Once a day for 90 day(s) Next Appt Details Provider Name:Ash Bautistaer, 2020-04-02 0 9:30:00 AM, [address] [place], [address], Insurance Providers Payer Name Payer Address Payer Phone Insured Name Patient Relati onship to Insured Coverage Start Date Coverage End Date MEDICAID [employer] [address] [facility] [id number] [place] self MEDICARE Part A and B [address] [facility] [id number] [place] self
--- OUTSIDE RECORDS SUMMARY | 2020-03-05 15:06 | CCD ---
Author Author [facility] Organization [facility] [employer] [facility] Address Unknown Phone Unavailable Care Team Providers Care Paper Machine Operator Name Role Phone Ash Vences Unavailable PROBLEMS Type Condition ICD9-CM Code [id number] Code Onset Dates Condition S tatus SNOMED Code Notes Problem Vitamin D deficiency, unspecified E55.9 Active 65350649 Problem Epilepsy, unspecified, not intractable, without status epilepticus G40.909 Active 28946857 Problem Osteoporosis M81.0 Active 98132237 Problem Constipation, chronic K59.00 Active 127516094 Problem Allergic rhinitis J30.9 Active 48111862 Problem GERD (gastroesophageal reflux disease) K21.9 A ctive 410640406 Problem CP (cerebral palsy) G80.9 Active 219036303 Problem Urge incontinence N39.41 Active 56920612 Problem Hypertension, essential I10 Active 06058515 Problem History of lacunar cerebrovascular accident (CVA) Z86.73 Active 13198579701276 Problem Essential hypertension I10 Active 85148042 Problem Oropharyngeal dysphagia R13.12 Active 93039348 Problem Prostate cancer screening Z12.5 Active 946873 002 Problem 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, unspecified trigger J3 0.2 Active 565176953 Problem Dyshidrotic eczema L30.1 Active 999733450 Problem Nonintractable epilepsy with out status epilepticus, unspecified epilepsy type G40.909 Active 313833632 Problem Seizure disorder G40.909 Active 452428101 Problem Colon cancer screening Z12.11 Active 902022143 Problem Left hemiplegia G81.94 Active 682973145 ALLERGIES No Known Allergies ENCOUNTERS from 1960 to 2019-12-17 Encounter Location Date Provider Diagnosis [address] [place] [address] Nov, 020 Ash Vences IMMUNIZATIONS Vaccine Route Administration [...] School Language: Question Answer Notes Languages spoken: Romanian Caodaism: Question Answer Notes Caodaism No scientologist beliefs that would impact health care. Sexual [...] Duration) Start Date En d Date Status Reclast 5 MG/100ML 1 Intravenous annually Active Phenobarbital 32.4 MG 1 tablet Orally Three times a day MDD=3 f or 30 day(s) Active Levetiracetam 750 MG 1 tablet Orally Twice a day Active Fleet Enema 7-19 GM/118ML as directed Rectal PRN if no BM in 3 days for 2 days Nov, Active Multivitamins OTC 1 tablet Orally Once a day for 30 day(s) Active Montelukast Sodium 10 MG 1 tablet Orally before bedtime for 30 day(s) Nov, Active Lansoprazole 30 MG 1 capsule Orally AC dinner for 30 day(s) Active Flonase Allergy Relief 50 MCG/ACT 1 spray in each nost ril Nasally Once a day for 30 day(s) Nov, Active Peridex 0.12 % 15 ml Mouth/Throat twice a day for 15 Active Aspir-81 81 MG 1 tablet Orally Once a day for 90 day(s) Active Senokot 8.6 MG 2 tablets at bedtime as needed Orally at bedtime for 30 days Active Claritin 10 MG 1 tablet Orally Once a day for 30 Active Reclast 5 MG/100ML as directed Intravenous Nov, Active Valium 5 MG 1 tablet Orally 30 minutes b efore procedures & dental appts as needed for 1 days May, Active Vitamin D (Cholecalciferol) 50 MCG (1999 [place]) 1 tab Ora lly once a day for 90 day(s) Active MiraLax - 17 grams with 8 ounces of fluid Orally Once a day for 30 Active Nitrofurantoin Monohyd Macro 100 MG 1 capsule at bedti me with food Orally bid for 5 day(s) Jul, Active Wheelchair _ Ifeanyi height manual wheelchai r with accessories DX: G80.9 Daily- medicaid # [id number] for 9999 days Feb, Active Calcium 600 + D 600-400 MG-UNIT 1 tablet Orally Twice a day Active Phenytoin Sodium 100 MG 1 capsule Orally bid for 30 day(s) Active Chlorthalidone 25 MG 1 tablet Orally every morning for 90 day(s) Jul, Active Oxybutynin Chloride ER 5 MG 1 tablet Orally Once a day for 30 Active May Have - as directed straight cath to collect UA/UC N39.0 09 Oc 2019 Active AmLODIPine Besylate 2.5 MG 1 tablet Orally Once a day for 30 Active InCare Straight 14FR/20CM 1 as directed 1 for 1 days Nov, Active Bisacodyl 10 MG 1 suppository as needed Rect al Once a day PRN if no BM for 5 day(s) Nov, Active PROCEDURES No Information RESULTS No Results REASON FOR VISIT flonase MEDICAL (GENERAL) HISTORY Type Description Date Medical [...] 12/2018 RML PN-rxed levo 21D Surgical History [id number]-Fctkci-pxiluc 07/2013 Hospitalization History RLL PN by CXR-favor [...] Orally Once a day for 90 day(s) Senokot 8.6 MG 2 tablets at bedtime as needed Orally at bedtime for 30 days Valium 5 MG 1 tablet Orally 30 minutes b efore procedures & dental appts as needed for 1 days May, Reclast 5 MG/100ML as directed Intravenous Nov, Montelukast Sodium 10 MG 1 tablet Orally before bedtime for 30 day(s) Nov, Flonase Allergy Relief 50 MCG/ACT 1 spray in each nost ril Nasally Once a day for 30 day(s) Nov, Next Appt Details Provider Name:Millie Almonte, 2019-02 01:00:00 PM, [address] [place], [address], Insurance Providers Payer Name Payer Address Payer Phone Insured Name Patient Relati onship to Insured Coverage Start Date Coverage End Date MEDICARE Part A and B [address] [facility] [address] [phone] [place] [place] self [facility]ID [facility] [address] [facility] [address] NKECHI OSPINA self
--- OUTSIDE RECORDS SUMMARY | 2020-03-05 15:06 | CCD ---
Author Author [facility] Organization [facility] [employer] Sy[facility] em[facility] Address Unknown Phone Unavailable Care Team Providers Care Assurance Analyst Name Role Phone Ash Vences Unavailable PROBLEMS Type Condition ICD9-CM Code [id number] Code Onset Dates Condition S tatus SNOMED Code Notes Problem Vitamin D deficiency, unspecified E55.9 Active 72376003 Problem Epilepsy, unspecified, not intractable, without status epilepticus G40.909 Active 96497918 Problem Osteoporosis M81.0 Active 99213593 Problem Constipation, chronic K59.00 Active 022661722 Problem Allergic rhinitis J30.9 Active 19762799 Problem GERD (gastroesophageal reflux disease) K21.9 A ctive 698326664 Problem CP (cerebral palsy) G80.9 Active 629135276 Problem Urge incontinence N39.41 Active 14329571 Problem Hypertension, essential I10 Active 79384818 Problem History of lacunar cerebrovascular accident (CVA) Z86.73 Active 10068746842677 Problem Essential hypertension I10 Active 07809697 Problem Oropharyngeal dysphagia R13.12 Active 07787676 Problem Prostate cancer screening Z12.5 Active 460775 002 Problem 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, unspecified trigger J3 0.2 Active 403950565 Problem Dyshidrotic eczema L30.1 Active 298762482 Problem Nonintractable epilepsy with out status epilepticus, unspecified epilepsy type G40.909 Active 558348787 Problem Seizure disorder G40.909 Active 586903720 Problem Colon cancer screening Z12.11 Active 899984125 Problem Left hemiplegia G81.94 Active 112053933 ALLERGIES No Known Allergies ENCOUNTERS from 1960 to 2019-12-15 Encounter Location Date Provider Diagnosis [address] [place] [address] Nov, Samuel Vences Constipation, chronic K59.00 IMMUNIZATIONS Vaccine Route Administration Date Status Influenza [...] School Language: Question Answer Notes Languages spoken: Turkmen Episcopalian: Question Answer Notes Episcopalian No oriental orthodox beliefs that would impact health care. Sexual [...] Once a day for 30 day(s) Active Lansoprazole 30 MG 1 capsule [...] with accessories DX: G80.9 Daily- medicaid # [id number] for 9999 days Feb, Active Calcium 600 [...] cath to collect UA/UC N39.0 2019 Active AmLODIPine Besylate 2.5 MG 1 [...] 12/2018 RML PN-rxed levo 21D Surgical History shwdfqusavy-Ywxjaw-nytosr 07/2013 Hospitalization History RLL PN by CXR-favor aspirati on PN given onset 7D p general anesthesia for dental procedure, seizure acitivity, new-onset HTN 10/2016 Goals Section No Information Health Concerns No Information MEDICAL EQUIPMENT No Information MENTAL STATUS No Information FUNCTIONAL STATUS No Information ASSESSMENTS Encounter Date Diagnosis Notes Nov, Constipation, chronic (ICD-10 - K59.00) PLAN OF TREATMENT Medication Medication Name Sig [...] Reclast 5 MG/100ML as directed Intravenous Nov, Flonase Allergy Relief 50 MCG/ACT 1 spray in each nost ril Nasally Once a day for 30 day(s) Nov, Next Appt Details Provider Name:Millie Almonte, 2019-02 01:00:00 PM, [address] [place], [address], Insurance Providers Payer Name Payer Address Payer Phone Insured Name Patient Relati onship to Insured Coverage Start Date Coverage End Date MEDICAID [employer] [address] [facility] [address] NKECHI OSPINA MEDICARE Part A and B [address] [facility] [address] NKECHI OSPINA
--- OUTSIDE RECORDS SUMMARY | 2020-03-05 15:06 | CCD ---
Author Author [facility] Syst em[facility] Organization [facility] [employer] [facility] Address Unknown Phone Unavailable Care Team Providers Care Dialysis Equipment Technician Name Role Phone Ash Vences Unavailable PROBLEMS Type Condition ICD9-CM Code [id number] Code Onset Dates Condition S tatus SNOMED Code Notes Problem Vitamin D deficiency, unspecified E55.9 Active 91386433 Problem Epilepsy, unspecified, not intractable, without status epilepticus G40.909 Active 27633798 Problem Osteoporosis M81.0 Active 17962829 Problem Constipation, chronic K59.00 Active 912303291 Problem Allergic rhinitis J30.9 Active 74450971 Problem GERD (gastroesophageal reflux disease) K21.9 A ctive 879076038 Problem CP (cerebral palsy) G80.9 Active 358227462 Problem Urge incontinence N39.41 Active 67766828 Problem Hypertension, essential I10 Active 30701974 Problem History of lacunar cerebrovascular accident (CVA) Z86.73 Active 32269657380310 Problem Essential hypertension I10 Active 36052337 Problem Oropharyngeal dysphagia R13.12 Active 17297806 Problem Prostate cancer screening Z12.5 Active 152857 002 Problem 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, unspecified trigger J3 0.2 Active 459484872 Problem Dyshidrotic eczema L30.1 Active 836868468 Problem Nonintractable epilepsy with out status epilepticus, unspecified epilepsy type G40.909 Active 615950120 Problem Seizure disorder G40.909 Active 046572583 Problem Colon cancer screening Z12.11 Active 130046349 Problem Left hemiplegia G81.94 Active 277960084 ALLERGIES No Known Allergies ENCOUNTERS from 1960 to 2019-12-16 Encounter Location Date Provider Diagnosis [address] [place] [address] Nov, Samuel Vences Constipation, chronic K59.00 IMMUNIZATIONS [...] School Language: Question Answer Notes Languages spoken: Australian Temple: Question Answer Notes Temple No samaritan beliefs that would impact health [...] May, Active Vitamin D (Cholecalciferol) 50 MCG (2000 [...] with accessories DX: G80.9 Daily- medicaid # [id number] for 9999 days Feb, Active Calcium 600 [...] to collect UA/UC N39.0 Oc 2019 Active AmLODIPine Besylate 2.5 MG 1 tablet Orally Once a day for 30 Active InCare Straight 14FR/20CM 1 as directed 1 for 1 days Nov, Active Bisacodyl 10 MG 1 suppository as needed Rect al Once a day PRN if no BM for 5 day(s) Nov, Active PROCEDURES No Information RESULTS No Results REASON FOR VISIT medication MEDICAL (GENERAL) HISTORY Type Description Date Medical [...] 12/2018 RML PN-rxed levo 21D Surgical History [id number]-Ydyhik-ultjca 07/2013 Hospitalization History RLL PN by CXR-favor [...] Nov, Next Appt Details Provider Name:Millie Almonte, 2019-03-04 01:00:00 PM, [address] [place], [address], Insurance Providers Payer Name Payer Address Payer Phone Insured Name Patient Relati onship to Insured Coverage Start Date Coverage End Date MEDICAID [employer] [address] [facility] [address] NKECHI OSPINA MEDICARE Part A and B [address] [facility] [address] NKECHI OSP[place] self
--- OUTSIDE RECORDS SUMMARY | 2020-03-05 15:06 | CCD ---
Author Author [facility]st em[facility] Organization [facility] [employer] [facility] Address Unknown Phone Unavailable Care Team Providers Care Care Manager Cna Name Role Phone Ash Vences Unavailable PROBLEMS Type Condition ICD9-CM Code [id number] Code Onset Dates Condition S tatus SNOMED Code Notes Problem Vitamin D deficiency, unspecified E55.9 Active 20370027 Problem Epilepsy, unspecified, not intractable, without status epilepticus G40.909 Active 29175891 Problem Osteoporosis M81.0 Active 24630339 Problem Constipation, chronic K59.00 Active 122062640 Problem Allergic rhinitis J30.9 Active 18804843 Problem GERD (gastroesophageal reflux disease) K21.9 A ctive 756142776 Problem CP (cerebral palsy) G80.9 Active 472067885 Problem Urge incontinence N39.41 Active 36514984 Problem Hypertension, essential I10 Active 68320387 Problem History of lacunar cerebrovascular accident (CVA) Z86.73 Active 51742771992567 Problem Essential hypertension I10 Active 58362468 Problem Oropharyngeal dysphagia R13.12 Active 46254766 Problem Prostate cancer screening Z12.5 Active 120152 002 Problem 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, unspecified trigger J3 0.2 Active 018313091 Problem Dyshidrotic eczema L30.1 Active 056384581 Problem Nonintractable epilepsy with out status epilepticus, unspecified epilepsy type G40.909 Active 405196351 Problem Seizure disorder G40.909 Active 297060031 Problem Colon cancer screening Z12.11 Active 331749571 Problem Left hemiplegia G81.94 Active 081252308 ALLERGIES No Known Allergies ENCOUNTERS from 1960 to 2019-12-21 Encounter Location Date Provider Diagnosis [address] [place] [address] Dec, Samuel Vences 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, unspecified trigger J30.2 IMMUNIZATIONS Vaccine Route Administration Date Status Influenza [...] School Language: Question Answer Notes Languages spoken: Kazakh Mosque: Question Answer Notes Mosque No zoroastrianism beliefs that would impact health care. Sexual [...] Duration) Start Date En d Date Status Levetiracetam 750 MG 1 tablet Orally Twice a day Active Fleet Enema 7-19 GM/118ML as directed Rectal PRN if no BM in 3 days for 2 days Nov, Active Phenytoin Sodium 100 MG 1 capsule Orally bid for 30 day(s) Active Wheelchair _ Ifeanyi height manual wheelchai r with accessories DX: G80.9 Daily- medicaid # [id number] for 9999 days Feb, Active Lansoprazole 30 MG 1 capsule Orally AC dinner for 30 day(s) Active Flonase Allergy Relief 50 MCG/ACT 1 spray in each nost ril Nasally Once a day for 30 day(s) Nov, Active Reclast 5 MG/100ML 1 Intravenous annually Active Phenobarbital 32.4 MG 1 tablet Orally Three times a day MDD=3 f or 30 day(s) Active Multivitamins OTC 1 tablet Orally Once a day for 30 day(s) Active Montelukast Sodium 10 MG 1 tablet Orally before bedtime for 30 day(s) Nov, Active Aspir-81 81 MG 1 tablet Orally [...] once a day for 90 day(s) Active ClearLax 17 GM/SCOOP TAKE 17 GRAMS BY MOUTH IN EI GHT OUNCES OF LIQUID ONCE DAILY for 30 Active Peridex 0.12 % 15 ml Mouth/Throat twice a day for 15 Active Valium 5 MG 1 tablet Orally 30 minutes b efore procedures & dental appts as needed for 1 days May, Active Calcium 600 + D 600-400 MG-UNIT 1 tablet Orally Twice a day Active Reclast 5 MG/100ML as directed Intravenous Nov, Active Chlorthalidone 25 MG 1 tablet [...] Information RESULTS No Results REASON FOR VISIT singulair MEDICAL (GENERAL) HISTORY Type Description Date Medical [...] 12/2018 RML PN-rxed levo 21D Surgical History voksasidtis-Guilop-iczksb 07/2013 Hospitalization History RLL PN by CXR-favor aspirati on PN given onset 7D p general anesthesia for dental procedure, seizure acitivity, new-onset HTN 10/2016 Goals Section No Information Health Concerns No Information MEDICAL EQUIPMENT No Information MENTAL STATUS No Information FUNCTIONAL STATUS No Information ASSESSMENTS Encounter Date Diagnosis Notes Dec, 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, unspecified trigger (ICD-10 - J30.2) PLAN OF TREATMENT Medication Medication Name Sig Start Date Stop Date Aspir-81 81 MG 1 tablet Orally Once a day for 90 day(s) Senokot 8.6 MG 2 tablets at bedtime as needed Orally at bedtime for 30 days Reclast 5 MG/100ML as directed Intravenous Nov, [...] appts as needed for 1 days May, Montelukast Sodium 10 MG 1 tablet Orally before bedtime for 30 day(s) Nov, Next Appt Details Provider Name:Millie Almonte, 2019-02 01:00:00 PM, [address] [place], [address], Insurance Providers Payer Name Payer Address Payer Phone Insured Name Patient Relati onship to Insured Coverage Start Date Coverage End Date MEDICAID [employer] [address] [facility] [address] NKECHI OSPINA MEDICARE Part A and B [address] [facility] [phone] NKECHI OSPNIA
--- OUTSIDE RECORDS SUMMARY | 2020-03-05 15:06 | CCD ---
Author Author [facility] Syst ems Organization [facility] [employer] Syst ems Address Unknown Phone Unavailable Care Team Providers Care Imaging Science Professor Name Role Phone Ash Vences Unavailable PROBLEMS Type Condition ICD9-CM Code [id number] Code Onset Dates Condition S tatus SNOMED Code Notes Problem Vitamin D deficiency, unspecified E55.9 Active 21812343 Problem Epilepsy, unspecified, not intractable, without status epilepticus G40.909 Active 14663044 Problem Osteoporosis M81.0 Active 45729517 Problem Constipation, chronic K59.00 Active 299283379 Problem Allergic rhinitis J30.9 Active 32095778 Problem GERD (gastroesophageal reflux disease) K21.9 A ctive 750845431 Problem CP (cerebral palsy) G80.9 Active 801360858 Problem Urge incontinence N39.41 Active 07267509 Problem Hypertension, essential I10 Active 85857389 Problem History of lacunar cerebrovascular accident (CVA) Z86.73 Active 44369068568483 Problem Essential hypertension I10 Active 10810515 Problem Oropharyngeal dysphagia R13.12 Active 13454547 Problem Prostate cancer screening Z12.5 Active 550902 002 Problem 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, unspecified trigger J3 0.2 Active 553672592 Problem Dyshidrotic eczema L30.1 Active 063539049 Problem Nonintractable epilepsy with out status epilepticus, unspecified epilepsy type G40.909 Active 036615368 Problem Seizure disorder G40.909 Active 441223192 Problem Colon cancer screening Z12.11 Active 622561857 Problem Left hemiplegia G81.94 Active 476120698 ALLERGIES No Known Allergies ENCOUNTERS from 1960 to 2019-12-09 Encounter Location Date Provider Diagnosis [address] [place] [address] Nov, 020 Ash Vences IMMUNIZATIONS Vaccine Route [...] School Language: Question Answer Notes Languages spoken: Greek Confucianism: Question Answer Notes Confucianism No amish beliefs that would impact health care. Sexual [...] day MDD=3 f or 30 day(s) Active Aspir-81 81 MG 1 tablet Orally Once a day for 90 day(s) Active Fleet Enema 7-19 GM/118ML as [...] Mouth/Throat twice a day for 15 Active MiraLax - 17 grams with 8 ounces of fluid Orally Once a day for 30 Active Chlorthalidone 25 MG 1 tablet Orally every morning for 90 day(s) Jul, Active Oxybutynin Chloride ER 5 MG 1 tablet Orally Once a day for 30 Active Phenytoin Sodium 100 MG 1 capsule Orally bid for 30 day(s) Active Valium 5 MG 1 tablet Orally 30 minutes b efore procedures & dental appts as needed for 1 days May, Active Calcium 600 + D 600-400 MG-UNIT 1 tablet Orally Twice a day Active Reclast 5 MG/100ML as directed Intravenous Nov, Active Nitrofurantoin Monohyd Macro 100 MG 1 capsule at bedti me with food Orally bid for 5 day(s) Jul, Active Wheelchair _ Ifeanyi height manual wheelchai r with accessories DX: G80.9 Daily- medicaid # [id number] for 9999 days Feb, Active Claritin 10 MG 1 tablet Orally Once a day for 30 Active Levetiracetam 750 MG 1 tablet Orally Twice a day Active Vitamin D (Cholecalciferol) 50 MCG (1999) 1 tab Ora lly once a day for 90 day(s) Active Senokot 8.6 MG 1 tablet Orally at bedtime for 30 days Active May Have - as directed straight [...] Information RESULTS No Results REASON FOR VISIT refill-valium MEDICAL (GENERAL) HISTORY Type Description Date Medical [...] 12/2018 RML PN-rxed levo 21D Surgical History beizfrrglma-Cgzwjx-aodmlo 07/2013 Hospitalization History RLL PN by CXR-favor aspirati on PN given onset 7D p general anesthesia for dental procedure, seizure acitivity, new-onset HTN 10/2016 Goals Section No Information Health Concerns No Information MEDICAL EQUIPMENT No Information MENTAL STATUS No Information FUNCTIONAL STATUS No Information ASSESSMENTS No Information PLAN OF TREATMENT Medication Medication Name Sig Start Date Stop Date Reclast 5 MG/100ML as directed Intravenous Nov, Senokot 8.6 MG 1 tablet Orally at bedtime for 30 days Flonase Allergy Relief 50 MCG/ACT 1 spray in each nost ril Nasally Once a day for 30 day(s) Nov, Valium 5 MG 1 tablet Orally 30 minutes b efore procedures & dental appts as needed for 1 days May, Next Appt Details Provider Name:Millie Almonte, 2019-02 01:00:00 PM, [facility] [place], [address], Insurance Providers Payer Name Payer Address Payer Phone Insured Name Patient Relati onship to Insured Coverage Start Date Coverage End Date MEDICAID [employer] [address] [facility] [address] [place] self MEDICARE Part A and B [address] [facility] [address] NKECHI [place] self
--- OUTSIDE RECORDS SUMMARY | 2020-03-05 15:06 | CCD | Continuity of Care Document ---
Author Author Cade JACKSON P.A.-C. Organization Unknown Address [address] [place] [address] Phone [phone] Care Team Providers Care Product Safety Test Engineer Name Role Phone Ash Vences M.D. AUTM [phone] Problems Description No Information Available Social History [...] 70mg Tablets Unknown Calcium-Carb 600 + D [id number] Tablets Unknown Immunizations Description No Information Available Vital Signs Date Vital Result Comment 02/24/2019 3:39pm BP Systolic 122 mmHg BP Diastolic 70 mmHg Heart Rate 72 /min Respiratory Rate 16 /min 11/19/2018 6:25am BP Systolic 118 mmHg BP Diastolic 80 mmHg Heart Rate 72 /min Respiratory Rate 16 /min Results Test Acquired Date Facility Test Result H/L Range Note Laboratory test finding 10/26/2019 [facility] Phenytoin (Dilantin) 15.1 UG/ML Normal 10.0-20.0 1 Laboratory test finding 09/28/2019 [facility] Phenytoin (Dilantin) 22.2 UG/ML High 10.0-20.0 2 CBC With Differential 09/08/2019 [facility] White Blood Count 6.3 10 Normal [...] 36.0-66.0 Lymph % 28.6 % Normal 24.0-44.0 Morrow % 13.0 % High 0.0-5.0 Eos % 2.2 % Normal 0.0-3.0 Baso % 0.3 % Normal 0.0-1.0 Immature Granulocyte % 0.3 % Normal 0-3.0 Nucleated Red Blood Cell % 0.0 % Normal 0-0 Neutrophils # 3.5 10 Normal 1.5-8.5 Lymph # 1.8 10 Normal 1.5-5.0 Morrow # 0.8 10 Normal 0.0-0.8 Eos # 0.1 10 Normal 0.0-0.5 Baso # 0.0 10 Normal 0.0-0.2 Laboratory test finding 09/08/2019 [facility] Ast/Sgot 16 U/L Normal 7-37 3 Alt/SGPT 25 U/L Normal 12-78 4 Phenytoin (Dilantin) 8.8 UG/ML Low 10.0-20.0 5 Phenobarbital Level 29.1 UG/ML Normal 15.0-40.0 6 Levetiracetam (Keppra) 20.7 ug/mL Normal 10.0-40.0 7 Laboratory test finding 08/09/2019 [facility] Phenytoin (Dilantin) 8.2 UG/ML Low 10.0-20.0 8 1 note:<nlbl:demographic_chang ed> 2 note:<nlbl:demographic_chang ed> 3 note:<nlbl:demographic_chang ed> 4 note:<nlbl:demographic_chang ed> 5 note:<nlbl:demographic_chang ed> 6 note:<nlbl:demographic_chang ed> 7 This test was developed and its performance characteristics determined by [facility]. It has not been cleared or approved by the Food and Drug Administration. Performed at: [address] [id number] Director [employer]: Seng Nichols MD, Phone: [phone] 8 note:<nlbl:demographic_chang ed> Procedures Description No Information Available Medical Devices Description No Information Available Encounters Type Date Location Provider Dx Diagnosis Office Visit 12/06/2019 10:00a Main office - [place] Lakisha harrison P.A.-C. 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 12/06/2019 G40.309 Generalized idiopathic epilepsy and epileptic syndromes, not Stefan Ness.A.-C. 12/06/2019 G80.2 Spastic hemiplegic cerebral pals y Lakisha Jackson P.A.-C. 12/06/2019 R26.2 Difficulty in walking, not elsew here classified Oscar Ness-C. 12/06/2019 F78 Other intellectual disabilities Hyacinth NessC. 09/01/2019 G40.309 Generalized idiopathic epilepsy and epileptic syndromes, not Stefan Ness.AKyra-C. 09/01/2019 I63.89 Other cerebral infarction Lakisha Jackson P.A.-C. 09/01/2019 G80.2 Spastic hemiplegic cerebral pals y Stefan Ness.AKyra-C. 09/01/2019 R26.2 Difficulty in walking, not elsew here classified Chris NessAKyra-C. 09/01/2019 F78 Other intellectual disabilities Lakisha Jackson P.A.-C. Plan of Treatment Future Appointment(s):* 03/08/2020 11:15 am - Lakisha Jackson P.A.-C. at Main office [facility] 12/06/2019 - Hyacinth NessC.* I63.89 Other cerebral infarction* Comments:* Not recurrent. [...] Status Appt Date Sarina Holt M.D. Created [facility] [address] [place] [address] [phone]
--- OUTSIDE RECORDS SUMMARY | 2020-03-05 15:06 | CCD ---
Author Author [facility] Organization [facility] [employer] [facility] [facility] Address Unknown Phone Unavailable Care Team Providers Care Behavioral Health Tech Name Role Phone Ash Vences Unavailable PROBLEMS Type Condition ICD9-CM Code MLY14-TD Code Onset Dates Condition S tatus SNOMED Code Notes Problem Vitamin D deficiency, unspecified E55.9 Active 29267813 Problem Epilepsy, unspecified, not intractable, without status epilepticus G40.909 Active 68260236 Problem Osteoporosis M81.0 Active 00019614 Problem Constipation, chronic K59.00 Active 607147970 Problem Allergic rhinitis J30.9 Active 74813228 Problem GERD (gastroesophageal reflux disease) K21.9 A ctive 792390152 Problem CP (cerebral palsy) G80.9 Active 421673306 Problem Urge incontinence N39.41 Active 04855499 Problem Hypertension, essential I10 Active 96987455 Problem History of lacunar cerebrovascular accident (CVA) Z86.73 Active 18898470976363 Problem Essential hypertension I10 Active 71110722 Problem Oropharyngeal dysphagia R13.12 Active 33360422 Problem Prostate cancer screening Z12.5 Active 312151 002 Problem 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, unspecified trigger J3 0.2 Active 775821886 Problem Dyshidrotic eczema L30.1 Active 592216634 Problem Nonintractable epilepsy with out status epilepticus, unspecified epilepsy type G40.909 Active 117452214 Problem Seizure disorder G40.909 Active 257471272 Problem Colon cancer screening Z12.11 Active 296890463 Problem Left hemiplegia G81.94 Active 226387021 ALLERGIES No Known Allergies ENCOUNTERS from 1962 to 2019-12-22 Encounter Location Date Provider Diagnosis [address] [place] [address] Dec, 020 Ash Vences IMMUNIZATIONS Vaccine Route [...] School Language: Question Answer Notes Languages spoken: Wolof Oriental Orthodox: Question Answer Notes Oriental Orthodox No denominational beliefs that would impact health care. Sexual [...] with accessories DX: G80.9 Daily- medicaid # [id number] for 9999 days Feb, Active Lansoprazole 30 [...] Jul, Active Vitamin D (Cholecalciferol) 50 MCG (1999) [...] Information RESULTS No Results REASON FOR VISIT Clarification MEDICAL (GENERAL) HISTORY Type Description Date Medical [...] 12/2018 RML PN-rxed levo 21D Surgical History [id number] 07/2013 Hospitalization History RLL PN by CXR-favor [...] Provider Name:Millie Almonte, 2019-02 01:00:00 PM, [address] [place], [address], Insurance Providers Payer Name Payer Address Payer Phone Insured Name Patient Relati onship to Insured Coverage Start Date Coverage End Date MEDICARE Part A and B [address] [facility] [phone] [employer] [place] self MEDICAID [employer] [address] [place] [address] [place] self
--- OUTSIDE RECORDS SUMMARY | 2020-03-05 15:06 | CCD ---
Author Author [facility] Organization [facility] [employer] [facility] [facility] Address Unknown Phone Unavailable Care Team Providers Care Food And Beverage Cashier Name Role Phone Ash Vences Unavailable PROBLEMS Type Condition ICD9-CM Code LPR94-BW Code Onset Dates Condition S tatus SNOMED Code Notes Problem Vitamin D deficiency, unspecified E55.9 Active 62910693 Problem Epilepsy, unspecified, not intractable, without status epilepticus G40.909 Active 26172308 Problem Osteoporosis M81.0 Active 05111599 Problem Constipation, chronic K59.00 Active 202856606 Problem Allergic rhinitis J30.9 Active 09652884 Problem GERD (gastroesophageal reflux disease) K21.9 A ctive 960779874 Problem CP (cerebral palsy) G80.9 Active 244183295 Problem Urge incontinence N39.41 Active 55643597 Problem Hypertension, essential I10 Active 65671521 Problem History of lacunar cerebrovascular accident (CVA) Z86.73 Active 85726417882302 Problem Essential hypertension I10 Active 31035577 Problem Oropharyngeal dysphagia R13.12 Active 61098604 Problem Prostate cancer screening Z12.5 Active 189712 002 Problem 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, unspecified trigger J3 0.2 Active 899346809 Problem Dyshidrotic eczema L30.1 Active 677444238 Problem Nonintractable epilepsy with out status epilepticus, unspecified epilepsy type G40.909 Active 414640254 Problem Seizure disorder G40.909 Active 644610816 Problem Colon cancer screening Z12.11 Active 996567489 Problem Left hemiplegia G81.94 Active 946207042 ALLERGIES No Known Allergies ENCOUNTERS from 1960 to 2019-12-13 Encounter Location Date Provider Diagnosis [address] [place] [address] Nov, 020 Ash Vences History of lacunar cerebrovascular accident (CVA) Z86.73 IMMUNIZATIONS Vaccine Route Administration Date Status Influenza [...] School Language: Question Answer Notes Languages spoken: [place] Gnosticism: Question Answer Notes Gnosticism No confucianism beliefs that would impact health care. Sexual [...] Once a day for 90 day(s) Active Chlorthalidone 25 MG 1 tablet [...] 1 tablet Orally Twice a day Active MiraLax - 17 grams with 8 ounces of fluid Orally Once a day for 30 Active Nitrofurantoin Monohyd Macro 100 MG 1 capsule at bedti me with food Orally bid for 5 day(s) Jul, Active Wheelchair _ Ifeanyi height manual wheelchai r with accessories DX: G80.9 Daily- medicaid # [id number] for 9999 days Feb, Active Claritin 10 MG 1 tablet Orally Once a day for 30 Active Phenytoin Sodium 100 MG 1 capsule Orally bid for 30 day(s) Active Vitamin D (Cholecalciferol) [...] Information RESULTS No Results REASON FOR VISIT aspirin MEDICAL (GENERAL) HISTORY Type Description Date Medical [...] 12/2018 RML PN-rxed levo 21D Surgical History [id number]-verpxy 07/2013 Hospitalization History RLL PN by CXR-favor aspirati on PN given onset 7D p general anesthesia for dental procedure, seizure acitivity, new-onset HTN 10/2016 Goals Section No Information Health Concerns No Information MEDICAL EQUIPMENT No Information MENTAL STATUS No Information FUNCTIONAL STATUS No Information ASSESSMENTS Encounter Date Diagnosis Notes Nov, History of lacunar cerebrova scular accident (CVA) (ICD-10 - Z86.73) PLAN OF TREATMENT Medication Medication Name Sig Start Date Stop Date Aspir-81 81 MG 1 tablet Orally Once a day for 90 day(s) Senokot 8.6 MG 1 tablet Orally at bedtime for 30 days Valium 5 MG 1 tablet Orally 30 minutes b efore procedures & dental appts as needed for 1 days May, Reclast 5 MG/100ML as directed Intravenous Nov, Flonase Allergy Relief 50 MCG/ACT 1 spray in each nost ril Nasally Once a day for 30 day(s) Nov, Next Appt Details Provider Name:Millie Almonte, 2019-02 01:00:00 PM, [address] [place], [address], Insurance Providers Payer Name Payer Address Payer Phone Insured Name Patient Relati onship to Insured Coverage Start Date Coverage End Date MEDICARE Part A and B [address] [facility] [id number] [place] [place] MEDICAID [email or web address] [address] [facility] [id number] [phone] [employer]
--- OUTSIDE RECORDS SUMMARY | 2020-03-05 15:08 | CCD ---
Author Author [facility] Organization [facility] Address Unknown Phone Unavailable Support Name Relationship Address Phone [facility] RESIDENCE, STAFF Next Of Kin [facility] FDC [address] [place], [place] [phone] RADHA ALMARAZ Next Of [place] [address] [place] [address] [facility] Next Of Kin [address] [place] [id number] RESIDENT, [facility] Next Of Kin [address] [place], [place] [phone] JAI OSPINA Next Of Kin [address] [place] [address] FELICITAS STANLEY Next Of Kin [address] [place] [address] TOSHA EDOUARD Next Of Kin [address] [place] [address] JAY URENA Next Of Kin [address] [place] [address] NKECHI URENA(NURSE) Next Of Kin [address] [place] [address] NATHANAEL PLAZA Next Of Kin [address] [place] [address] ANTOINETTE CORONEL Next Of Kin [address] [place] [address] UE Next Of Kin Unknown Unavailable DISABLED Next Of Kin Unknown AJAY NUNEZ Next Of Kin [address] [place] [address] RENAN POLLACK Next Of Kin [address] [place] [address] Felicitas Stanley ECON [address] [place] [address] Unavailable Jay Urena [address] [place] [address] Care Team Providers Care Muck Operator Name Role Phone Rory Reilly Unavailable Unavailable Rory Reilly Unavailable Unavailable Rory Reilly Unavailable Unavailable Rory Reilly Unavailable Unavailable RuSteve jon MD Unavailable Unavailable RuSteve jon MD Unavailable Unavailable RuSteve jon MD Unavailable Unavailable RuSteve jon MD Unavailable Unavailable RuSteve jon MD Unavailable Unavailable RuSteve jon MD Unavailable Unavailable RuSteve jon MD Unavailable Unavailable RuSteve jon MD Unavailable Unavailable RuSteve jon MD Unavailable Unavailable RuSteve jon MD Unavailable Unavailable RuSteve jon MD Unavailable Unavailable RuSteve jon MD Unavailable Unavailable RuSteve jon MD Unavailable Unavailable RuSteve jon MD Unavailable Unavailable RuSteve jon MD Unavailable Unavailable RuSteve jon MD Unavailable Unavailable RuSteve jon MD Unavailable Unavailable RuSteve jon MD Unavailable Unavailable RuSteve jon MD Unavailable Unavailable RuSteve jon MD Unavailable Unavailable RuSteve jon MD Unavailable Unavailable RuSteve jon MD Unavailable Unavailable RuSteve jon MD Unavailable Unavailable RuSteve jon MD Unavailable Unavailable RuSteve jon MD Unavailable Unavailable RuSteve jon MD Unavailable Unavailable RuSteve jon MD Unavailable Unavailable RuSteve jon MD Unavailable Unavailable RuSteve jon MD Unavailable Unavailable RuSteve jon MD Unavailable Unavailable RuSteve jon MD Unavailable Unavailable RuSteve jon MD Unavailable Unavailable RuSteve jon MD Unavailable Unavailable RuSteve jon MD Unavailable Unavailable RuSteve jon MD Unavailable Unavailable RuSteve jon MD Unavailable Unavailable RuSteve jon MD Unavailable Unavailable RuSteve jon MD Unavailable Unavailable RuSteve jon MD Unavailable Unavailable RuSteve jon MD Unavailable Unavailable RuSteve jon MD Unavailable Unavailable RuSteve jon MD Unavailable Unavailable RuSteve jon MD Unavailable Unavailable RuSteve jon MD Unavailable Unavailable RuSteve jon MD Unavailable Unavailable RuSteve jon MD Unavailable Unavailable RuSteve jon MD Unavailable Unavailable RuSteve jon MD Unavailable Unavailable RuSteve jon MD Unavailable Unavailable RuSteve jon MD Unavailable Unavailable RuSteve jon MD Unavailable Unavailable RuSteve jon MD Unavailable Unavailable Ru, E Ash MD Unavailable Unavailable Steve Vences MD Unavailable Unavailable Steve Vences MD Unavailable Unavailable Steve Vences MD Unavailable Unavailable Steve Vences MD Unavailable Unavailable MAJAK, R CHAVO DPM Unavailable Unavailable MAJAK, R CHAVO DPM Unavailable Unavailable MAJAK, R CHAVO DPM Unavailable Unavailable MAJAK, R CHAVO DPM Unavailable Unavailable MAJAK, R CHAVO DPM Unavailable Unavailable MAJAK, R CHAVO DPM Unavailable Unavailable MAJAK, R CHAVO DPM Unavailable Unavailable MAJAK, R CHAVO DPM Unavailable Unavailable MAJAK, R CHAVO DPM Unavailable Unavailable MAJAK, R CHAVO DPM Unavailable Unavailable MAJAK, R CHAVO DPM Unavailable Unavailable MAJAK, R CHAVO DPM Unavailable Unavailable MAJAK, R CHAVO DPM Unavailable Unavailable MAJAK, R CHAVO DPM Unavailable Unavailable MAJAK, R CHAVO DPM Unavailable Unavailable MAJAK, R CHAVO DPM Unavailable Unavailable MAJAK, R CHAVO DPM Unavailable Unavailable MAJAK, R CHAVO DPM Unavailable Unavailable MAJAK, R CHAVO DPM Unavailable Unavailable MAJAK, R CHAVO DPM Unavailable Unavailable MAJAK, R CHAVO DPM Unavailable Unavailable MAJAK, R CHAVO DPM Unavailable Unavailable MAJAK, R CHAVO DPM Unavailable Unavailable MAJAK, R CHAVO DPM Unavailable Unavailable MAJAK, R CHAVO DPM Unavailable Unavailable MAJAK, R CHAVO DPM Unavailable Unavailable MAJAK, R CHAVO DPM Unavailable Unavailable MAJAK, R CHAVO DPM Unavailable Unavailable MAJAK, R CHAVO DPM Unavailable Unavailable MAJAK, R CHAVO DPM Unavailable Unavailable Trickey, J Lakisha PA Unavailable Unavailable Trickey, J Lakisha PA Unavailable Unavailable Trickey, J Lakisha PA Unavailable Unavailable Trickey, J Lakisha PA Unavailable Unavailable Trickey, J Lakisha PA Unavailable Unavailable Trickey, J Lakisha PA Unavailable Unavailable Trickey, J Lakisha PA Unavailable Unavailable Trickey, J Lakisha PA Unavailable Unavailable Trickey, J Lakisha PA Unavailable Unavailable Trickey, J Lakisha PA Unavailable Unavailable Trickey, J Lakisha PA Unavailable Unavailable Trickey, J Lakisha PA Unavailable Unavailable Trickey, J Lakisha PA Unavailable Unavailable Trickey, J Lakisha PA Unavailable Unavailable Trickey, J Lakisha PA Unavailable Unavailable Trickey, J Lakisha PA Unavailable Unavailable Trickey, J Lakisha PA Unavailable Unavailable Trickey, J Lakisha PA Unavailable Unavailable Trickey, J Lakisha PA Unavailable Unavailable Trickey, J Lakisha PA Unavailable Unavailable Trickey, J Lakisha PA Unavailable Unavailable Trickey, J Lakisha PA Unavailable Unavailable Trickey, J Lakisha PA Unavailable Unavailable Trickey, J Lakisha PA Unavailable Unavailable Trickey, J Lakisha PA Unavailable Unavailable Trickey, J Lakisha PA Unavailable Unavailable Trickey, J Lakisha PA Unavailable Unavailable Trickey, J Lakihsa PA Unavailable Unavailable Trickey, J Lakisha PA Unavailable Unavailable Trickey, J Lakisha PA Unavailable Unavailable Trickey, J Lakisha PA Unavailable Unavailable Trickey, J Lakisha PA Unavailable Unavailable Trickey, J Lakisha PA Unavailable Unavailable Trickey, J Lakisha PA Unavailable Unavailable Trickey, J Lakisha PA Unavailable Unavailable Trickey, J Lakisha PA Unavailable Unavailable Trickey, J Lakisha PA Unavailable Unavailable Trickey, J Lakisha PA Unavailable Unavailable Trickey, J Lakisha PA Unavailable Unavailable Trickey, J Lakisha PA Unavailable Unavailable Trickey, J Lakisha PA Unavailable Unavailable Trickey, J Lakisha PA Unavailable Unavailable Trickey, J Lakisha PA Unavailable Unavailable Trickey, J Lakisha PA Unavailable Unavailable Trickey, J Lakisha PA Unavailable Unavailable Trickey, J Lakisha PA Unavailable Unavailable Trickey, J Lakisha PA Unavailable Unavailable Trickey, J Lakisha PA Unavailable Unavailable Trickey, J Lakisha PA Unavailable Unavailable Trickey, J Lakisha PA Unavailable Unavailable Trickey, J Lakisha PA Unavailable Unavailable Trickey, J Lakisha PA Unavailable Unavailable RING, K AJ PA Unavailable Unavailable RING, K AJ PA Unavailable Unavailable RING, K AJ PA Unavailable Unavailable RING, K AJ PA Unavailable Unavailable RING, K AJ PA Unavailable Unavailable RING, K AJ PA Unavailable Unavailable RING, K AJ PA Unavailable Unavailable RING, K AJ PA Unavailable Unavailable RING, K AJ PA Unavailable Unavailable RING, K AJ PA Unavailable Unavailable RING, K AJ PA Unavailable Unavailable RING, K AJ PA Unavailable Unavailable RING, K AJ PA Unavailable Unavailable RING, K AJ PA Unavailable Unavailable RING, K AJ PA Unavailable Unavailable RING, K AJ PA Unavailable Unavailable RING, K AJ PA Unavailable Unavailable RING, K AJ PA Unavailable Unavailable RING, K AJ PA Unavailable Unavailable RING, K AJ PA Unavailable Unavailable Jeff LANDERS MD Unavailable Unavailable VENERUS, Jeff ANN MD Unavailable Unavailable VENERUS, Jeff ANN MD Unavailable Unavailable VENERUS, Jeff ANN MD Unavailable Unavailable VENERUS, Jeff ANN MD Unavailable Unavailable VENERUS, Jeff ANN MD Unavailable Unavailable VENERUS, Jeff ANN MD Unavailable Unavailable VENERUS, Jeff ANN MD Unavailable Unavailable VENERUS, Jeff ANN MD Unavailable Unavailable Re-disclosure Warning The records that you are about to access may contain information from federally-assisted alcohol or drug abuse programs. If such information is present, then the following federally mandated warning applies: This information has been disclosed to you from records protected by federal confidentiality rules (42 CFR part 2). The federal rules prohibit you from making any further disclosure of this information unless further disclosure is expressly permitted by the written consent of the person to whom it pertains or as otherwise permitted by 42 CFR part 2. A general authorization for the release of medical or other information is NOT sufficient for this purpose. The Federal rules restrict any use of the information to criminally investigate or prosecute any alcohol or drug abuse patient.The records that you are about to access may contain highly sensitive health information, the redisclosure of which is protected by Article 27-F of the [facility] Public Health law. If you continue you may have access to information: Regarding HIV / AIDS; Provided by facilities licensed or operated by the [facility] Office of Mental Health; or Provided by the [facility] Office for People With Developmental Disabilities. If such information is present, then the following [facility] mandated warning applies: This information has been disclosed to you from confidential records which are protected by state law. State law prohibits you from making any further disclosure of this information without the specific written consent of the person to whom it pertains, or as otherwise permitted by law. Any unauthorized further disclosure in violation of state law may result in a fine or intermediate sentence or both. A general authorization for the release of medical or other information is NOT sufficient authorization for further disc losure. Allergies and Adverse Reactions Type Description Substance Reaction Status Data Source(s ) No Known Allergies No Known Allergies [facility] Family History Family Member Name Family Member Gender Family Member Status Date o f Status Description Data Source(s) Unknown Unknown Problem MEDENT ([facility]) Encounters Encounter Providers Location Date Indications Data Source(s ) [place] [address] [facility] [address] 02/21/2020 12:00:00 AM EST eCW1 ([facility]) [place] [address] [facility] [address] 02/01/2020 12:00:00 AM EST eCW1 ([facility]) [place] [address] [facility] [address] 02/01/2020 12:00:00 AM EST eCW1 ([facility]) [place] [address] [facility] [address] 01/26/2020 12:00:00 AM EST eCW1 ([facility]) TeleMedicine Est. Pt. Level 5 [address] [place] [address] 01/20/2020 12:00:00 AM EST eCW1 ([facility]) [place] [address] [facility] [address] 01/20/2020 12:00:00 AM EST eCW1 ([facility]) [place] [address] [facility] [address] 01/19/2020 12:00:00 AM EST eCW1 ([facility]) [place] [address] [facility] [address] 01/18/2020 12:00:00 AM EST eCW1 ([facility]) [place] [address] [facility] [address] 01/17/2020 12:00:00 AM EST eCW1 ([facility]) [place] [address] [facility] [address] 01/03/2020 12:00:00 AM EST eCW1 ([facility]) [place] [address] [facility] [place] [address] 12/28/2019 12:00:00 AM EST eCW1 ([facility]) [place] [address] [facility] [address] 12/26/2019 12:00:00 AM EST eCW1 ([facility]) [place] [address] [facility] [address] 12/23/2019 12:00:00 AM EST eCW1 ([facility]) [place] [address] [facility] [address] 12/22/2019 12:00:00 AM EST eCW1 ([facility]) Unknown [address] [facility] [place] [address] 12/19/2019 12:00:00 AM EST eCW1 ([facility]) [place] [address] [facility] [address] 12/15/2019 12:00:00 AM EDT eCW1 ([facility]) [place] [address] [facility] [address] 12/14/2019 12:00:00 AM EDT eCW1 ([facility]) Unknown [address] [facility] [place] [address] 12/14/2019 12:00:00 AM EDT eCW1 ([facility]) Unknown [address] [facility] [place] [address] 12/12/2019 12:00:00 AM EDT eCW1 ([facility]) Unknown [address] [facility] [place] [address] 12/07/2019 12:00:00 AM EDT eCW1 ([facility]) Outpatient Attender: Lakisha Jackson [place] Main office - [facility] 12/06/2019 10:00:00 AM EDT MEDENT ([facility] alma, GHANSHYAM) Unknown [address] [facility] [place] [address] 12/06/2019 12:00:00 AM EDT eCW1 ([facility]) Outpatient [address] [facility] Y [address] 12/02/2019 12:00:00 AM EDT eCW1 ([facility]) Unknown [address] [facility] Y [address] 11/30/2019 12:00:00 AM EDT eCW1 ([facility]) Unknown [address] [facility] [address] 11/29/2019 12:00:00 AM EDT eCW1 ([facility]) Unknown [address] [facility] [address] 11/25/2019 12:00:00 AM EDT eCW1 ([facility]) Unknown [address] [facility] [address] 11/24/2019 12:00:00 AM EDT eCW1 [facility]) Outpatient Attender: CHAVO GRIFFITH [facility] Office 03/2019 10:15:00 AM EDT MEDENT ([facility] [place] [address] [facility] [address] 10/31/2019 12:00:00 AM EDT eCW1 ([facility]) Inpatient Attender: Rory Kam er: REESE LANDERS MDConsultant: Ash Vences MD 10/10/2019 10:35:00 AM EDT - 10/14/2019 05:35:00 PM EDT [facility] Patient discharged. Outpatient 10/09/2019 07:45:00 PM EDT [facility] Outpatient Attender: Rory GUAN 0 07:15:00 PM EDT - 10/10/2019 10:35:00 AM EDT [facility] Outpatient Attender: Lakisha GUAN [facility] office [facility] 09/01/2019 10:45:00 AM EDT MEDENT ([facility] GHANSHYAM Clarke) Unknown [address] [facility] [address] 08/23/2019 12:00:00 AM EDT eCW1 ([facility]) Outpatient [address] [facility] [address] 08/10/2019 12:00:00 AM EDT eCW1 ([facility]) Unknown [address] [facility] [place] [address] 08/04/2019 12:00:00 AM EDT eCW1 ([facility]) [place] [address] [facility] [address] 08/03/2019 12:00:00 AM EDT eCW1 ([facility]) [place] [address] [facility] [address] 07/28/2019 12:00:00 AM EDT eCW1 ([facility]) [place] [address] [facility] [address] 07/28/2019 12:00:00 AM EDT eCW1 ([facility]) [place] [address] [facility] [address] 07/27/2019 12:00:00 AM EDT eCW1 ([facility]) [place] [address] [facility] [address] 07/26/2019 12:00:00 AM EDT eCW1 ([facility]) [place] [address] [facility] [address] 07/26/2019 12:00:00 AM EDT eCW1 ([facility]) [facility] [address] [facility] [address] 07/13/2019 12:00:00 AM EDT eCW1 ([facility]) [facility] [address] [facility] [address] 07/08/2019 12:00:00 AM EDT eCW1 ([facility]) [facility] [address] [facility] [address] 07/07/2019 12:00:00 AM EDT eCW1 ([facility]) [facility] [address] [facility] [address] 07/06/2019 12:00:00 AM EDT eCW1 ([facility]) [facility] [address] [facility] [address] 07/05/2019 12:00:00 AM EDT eCW1 ([facility]) [address] [address] 07/05/2019 12:00:00 AM EDT eCW1 ([facility]) [address] [address] 07/04/2019 12:00:00 AM EDT eCW1 ([facility]) [address] [address] 07/01/2019 12:00:00 AM EDT eCW1 ([facility]) [address] [address] 06/30/2019 12:00:00 AM EDT eCW1 ([facility]) [address] [address] 06/20/2019 12:00:00 AM EDT eCW1 ([facility]) Outpatient Attender: Lakisha GUAN [facility] 05/26/2019 09:15:00 AM EDT MEDENT ([facility] alma ) [address] [address] 05/12/2019 12:00:00 AM EDT eCW1 ([facility]) [address] [address] 04/21/2019 12:00:00 AM EST eCW1 ([facility]) [address] [address] 04/06/2019 12:00:00 AM EST eCW1 ([facility]) [address] [address] 03/18/2019 12:00:00 AM EST eCW1 ([facility]) [address] [address] 03/17/2019 12:00:00 AM EST eCW1 ([facility]) Outpatient Attender: AJ Asher 03/11/2019 11:15:00 AM EST MEDENT ([facility] [address] [address] 03/11/2019 12:00:00 AM EST eCW1 ([facility]) [address] [place] [address] 03/10/2019 12:00:00 AM EST eCW1 ([facility]) Outpatient Attender: Lakisha GUAN Main office - [facility] 02/24/2019 08:15:00 AM EST MEDENT ([facility], ) [address] [address] 02/23/2019 12:00:00 AM EST eCW1 ([facility]) [address] [address] 01/31/2019 12:00:00 AM EST eCW1 ([facility]) [address] [address] 01/28/2019 12:00:00 AM EST eCW1 ([facility]) [address] [address] 01/28/2019 12:00:00 AM EST eCW1 ([facility]) [address] [address] 01/19/2019 12:00:00 AM EST eCW1 ([facility]) [address] [address] 01/17/2019 12:00:00 AM EST eCW1 ([facility]) [address] [address] 01/11/2019 12:00:00 AM EST eCW1 ([facility]) [facility] [place] [address] [facility] [address] 01/10/2019 12:00:00 AM EST eCW1 ([facility]) [facility] [place] [address] [facility] [address] 01/05/2019 12:00:00 AM EST eCW1 ([facility]) Medications Medication Brand Name Start Date Product Form Dose Route Admi nistrative Instructions Pharmacy Instructions Status Indications Reaction Description Data Source(s) montelukast 10 MG Oral Tablet Montelukast Sodium 10 MG Trell lukast Sodium 10 MG 12/16/2019 12:00:00 AM EDT 1.0 {tablet} active Montelukast Sodium 10 MG eCW1 ([facility]) montelukast 10 MG Oral Tablet Montelukast Sodium 10 MG Trell lukast Sodium 10 MG 12/16/2019 12:00:00 AM EDT 1.0 {tablet} active Montelukast Sodium 10 MG eCW1 ([facility]) montelukast 10 MG Oral Tablet Montelukast Sodium 10 MG Trell lukast Sodium 10 MG 12/16/2019 12:00:00 AM EDT 1.0 {tablet} active Montelukast Sodium 10 MG eCW1 ([facility]) montelukast 10 MG Oral Tablet Montelukast Sodium 10 MG Trell lukast Sodium 10 MG 12/16/2019 12:00:00 AM EDT 1.0 {tablet} active Montelukast Sodium 10 MG eCW1 ([facility]) montelukast 10 MG Oral Tablet Montelukast Sodium 10 MG Trell lukast Sodium 10 MG 12/16/2019 12:00:00 AM EDT 1.0 {tablet} active Montelukast Sodium 10 MG eCW1 ([facility]) montelukast 10 MG Oral Tablet Montelukast Sodium 10 MG Trell lukast Sodium 10 MG 12/16/2019 12:00:00 AM EDT 1.0 {tablet} active Montelukast Sodium 10 MG eCW1 ([facility]) montelukast 10 MG Oral Tablet Montelukast Sodium 10 MG Trell lukast Sodium 10 MG 12/16/2019 12:00:00 AM EDT 1.0 {tablet} active Montelukast Sodium 10 MG eCW1 ([facility]) montelukast 10 MG Oral Tablet Montelukast Sodium 10 MG Trell lukast Sodium 10 MG 12/16/2019 12:00:00 AM EDT 1.0 {tablet} active Montelukast Sodium 10 MG eCW1 ([facility]) montelukast 10 MG Oral Tablet Montelukast Sodium 10 MG Trell lukast Sodium 10 MG 12/16/2019 12:00:00 AM EDT 1.0 {tablet} active Montelukast Sodium 10 MG eCW1 ([facility]) montelukast 10 MG Oral Tablet Montelukast Sodium 10 MG Trell lukast Sodium 10 MG 12/16/2019 12:00:00 AM EDT 1.0 {tablet} active Montelukast Sodium 10 MG eCW1 ([facility]) montelukast 10 MG Oral Tablet Montelukast Sodium 10 MG Trell lukast Sodium 10 MG 12/16/2019 12:00:00 AM EDT 1.0 {tablet} active Montelukast Sodium 10 MG eCW1 ([facility]) montelukast 10 MG Oral Tablet Montelukast Sodium 10 MG Trell lukast Sodium 10 MG 12/16/2019 12:00:00 AM EDT 1.0 {tablet} active Montelukast Sodium 10 MG eCW1 ([facility]) montelukast 10 MG Oral Tablet Montelukast Sodium 10 MG Trell lukast Sodium 10 MG 12/16/2019 12:00:00 AM EDT 1.0 {tablet} active Montelukast Sodium 10 MG eCW1 ([facility]) montelukast 10 MG Oral Tablet Montelukast Sodium 10 MG Trell lukast Sodium 10 MG 12/16/2019 12:00:00 AM EDT 1.0 {tablet} active Montelukast Sodium 10 MG eCW1 ([facility]) montelukast 10 MG Oral Tablet Montelukast Sodium 10 MG Trell lukast Sodium 10 MG 12/16/2019 12:00:00 AM EDT 1.0 {tablet} active Montelukast Sodium 10 MG eCW1 ([facility]) montelukast 10 MG Oral Tablet Montelukast Sodium 10 MG Trell lukast Sodium 10 MG 12/16/2019 12:00:00 AM EDT 1.0 {tablet} active Montelukast Sodium 10 MG eCW1 ([facility]) montelukast 10 MG Oral Tablet Montelukast Sodium 10 MG Trell lukast Sodium 10 MG 12/16/2019 12:00:00 AM EDT 1.0 {tablet} active Montelukast Sodium 10 MG eCW1 ([facility]) zoledronic acid 0.05 MG/ML Injectable Solution [Reclas t] Reclast 5 MG/100ML Reclast 5 MG/100ML 12/06/2019 12:00:00 AM EDT active Reclast 5 MG/100ML eCW1 ([facility]) zoledronic acid 0.05 MG/ML Injectable Solution [Reclas t] Reclast 5 MG/100ML Reclast 5 MG/100ML 12/06/2019 12:00:00 AM EDT active Reclast 5 MG/100ML eCW1 ([facility]) zoledronic acid 0.05 MG/ML Injectable Solution [Reclas t] Reclast 5 MG/100ML Reclast 5 MG/100ML 12/06/2019 12:00:00 AM EDT active Reclast 5 MG/100ML eCW1 ([facility]) zoledronic acid 0.05 MG/ML Injectable Solution [Reclas t] Reclast 5 MG/100ML Reclast 5 MG/100ML 12/06/2019 12:00:00 AM EDT active Reclast 5 MG/100ML eCW1 ([facility]) zoledronic acid 0.05 MG/ML Injectable Solution [Reclas t] Reclast 5 MG/100ML Reclast 5 MG/100ML 12/06/2019 12:00:00 AM EDT active Reclast 5 MG/100ML eCW1 (Formerly [facility]) zoledronic acid 0.05 MG/ML Injectable Solution [Reclas t] Reclast 5 MG/100ML Reclast 5 MG/100ML 12/06/2019 12:00:00 AM EDT active Reclast 5 MG/100ML eCW1 (Formerly [facility]) zoledronic acid 0.05 MG/ML Injectable Solution [Reclas t] Reclast 5 MG/100ML Reclast 5 MG/100ML 12/06/2019 12:00:00 AM EDT active Reclast 5 MG/100ML eCW1 (Formerly [facility]) zoledronic acid 0.05 MG/ML Injectable Solution [Reclas t] Reclast 5 MG/100ML Reclast 5 MG/100ML 12/06/2019 12:00:00 AM EDT active Reclast 5 MG/100ML eCW1 (Formerly [facility]) zoledronic acid 0.05 MG/ML Injectable Solution [Reclas t] Reclast 5 MG/100ML Reclast 5 MG/100ML 12/06/2019 12:00:00 AM EDT active Reclast 5 MG/100ML eCW1 (Formerly [facility]) zoledronic acid 0.05 MG/ML Injectable Solution [Reclas t] Reclast 5 MG/100ML Reclast 5 MG/100ML 12/06/2019 12:00:00 AM EDT active Reclast 5 MG/100ML eCW1 (Formerly [facility]) zoledronic acid 0.05 MG/ML Injectable Solution [Reclas t] Reclast 5 MG/100ML Reclast 5 MG/100ML 12/06/2019 12:00:00 AM EDT active Reclast 5 MG/100ML eCW1 (Formerly [facility]) zoledronic acid 0.05 MG/ML Injectable Solution [Reclas t] Reclast 5 MG/100ML Reclast 5 MG/100ML 12/06/2019 12:00:00 AM EDT active Reclast 5 MG/100ML eCW1 (Formerly [facility]) zoledronic acid 0.05 MG/ML Injectable Solution [Reclas t] Reclast 5 MG/100ML Reclast 5 MG/100ML 12/06/2019 12:00:00 AM EDT active Reclast 5 MG/100ML eCW1 (Formerly [facility]) zoledronic acid 0.05 MG/ML Injectable Solution [Reclas t] Reclast 5 MG/100ML Reclast 5 MG/100ML 12/06/2019 12:00:00 AM EDT active Reclast 5 MG/100ML eCW1 (Formerly [facility]) Flonase Allergy Relief 50 MCG/ACT Flonase Allergy Relief 50 MCG/ACT 12/02/2019 12:00:00 AM EDT 1.0 {spray_in_each_nostril} acti ve Flonase Allergy Relief 50 MCG/ACT eCW1 (Formerly [facility]) Flonase Allergy Relief 50 MCG/ACT Flonase Allergy Relief 50 MCG/ACT 12/02/2019 12:00:00 AM EDT 1.0 {spray_in_each_nostril} acti ve Flonase Allergy Relief 50 MCG/ACT eCW1 (Formerly [facility]) Flonase Allergy Relief 50 MCG/ACT Flonase Allergy Relief 50 MCG/ACT 12/02/2019 12:00:00 AM EDT 1.0 {spray_in_each_nostril} acti ve Flonase Allergy Relief 50 MCG/ACT eCW1 (Formerly [facility]) Flonase Allergy Relief 50 MCG/ACT Flonase Allergy Relief 50 MCG/ACT 12/02/2019 12:00:00 AM EDT 1.0 {spray_in_each_nostril} acti ve Flonase Allergy Relief 50 MCG/ACT eCW1 (Formerly [facility]) Flonase Allergy Relief 50 MCG/ACT Flonase Allergy Relief 50 MCG/ACT 12/02/2019 12:00:00 AM EDT 1.0 {spray_in_each_nostril} acti ve Flonase Allergy Relief 50 MCG/ACT eCW1 (Formerly [facility]) Flonase Allergy Relief 50 MCG/ACT Flonase Allergy Relief 50 MCG/ACT 12/02/2019 12:00:00 AM EDT 1.0 {spray_in_each_nostril} acti ve Flonase Allergy Relief 50 MCG/ACT eCW1 ([facility]ly [facility]) Flonase Allergy Relief 50 MCG/ACT Flonase Allergy Relief 50 MCG/ACT 12/02/2019 12:00:00 AM EDT 1.0 {spray_in_each_nostril} acti ve Flonase Allergy Relief 50 MCG/ACT eCW1 (Formerly [facility]) Flonase Allergy Relief 50 MCG/ACT Flonase Allergy Relief 50 MCG/ACT 12/02/2019 12:00:00 AM EDT 1.0 {spray_in_each_nostril} acti ve Flonase Allergy Relief 50 MCG/ACT eCW1 ([facility]ly [facility]) Flonase Allergy Relief 50 MCG/ACT Flonase Allergy Relief 50 MCG/ACT 12/02/2019 12:00:00 AM EDT 1.0 {spray_in_each_nostril} acti ve Flonase Allergy Relief 50 MCG/ACT eCW1 ([facility]ly [facility]) Flonase Allergy Relief 50 MCG/ACT Flonase Allergy Relief 50 MCG/ACT 12/02/2019 12:00:00 AM EDT 1.0 {spray_in_each_nostril} acti ve Flonase Allergy Relief 50 MCG/ACT eCW1 (Formerly [facility]) Flonase Allergy Relief 50 MCG/ACT Flonase Allergy Relief 50 MCG/ACT 12/02/2019 12:00:00 AM EDT 1.0 {spray_in_each_nostril} acti ve Flonase Allergy Relief 50 MCG/ACT eCW1 ([facility]ly [facility]) Flonase Allergy Relief 50 MCG/ACT Flonase Allergy Relief 50 MCG/ACT 12/02/2019 12:00:00 AM EDT 1.0 {spray_in_each_nostril} acti ve Flonase Allergy Relief 50 MCG/ACT eCW1 ([facility]ly [facility]) Flonase Allergy Relief 50 MCG/ACT Flonase Allergy Relief 50 MCG/ACT 12/02/2019 12:00:00 AM EDT 1.0 {spray_in_each_nostril} acti ve Flonase Allergy Relief 50 MCG/ACT eCW1 ([facility]ly [facility]) Flonase Allergy Relief 50 MCG/ACT Flonase Allergy Relief 50 MCG/ACT 12/02/2019 12:00:00 AM EDT 1.0 {spray_in_each_nostril} acti ve Flonase Allergy Relief 50 MCG/ACT eCW1 ([facility]) Flonase Allergy Relief 50 MCG/ACT Flonase Allergy Relief 50 MCG/ACT 12/02/2019 12:00:00 AM EDT 1.0 {spray_in_each_nostril} acti ve Flonase Allergy Relief 50 MCG/ACT eCW1 ([facility]) Flonase Allergy Relief 50 MCG/ACT Flonase Allergy Relief 50 MCG/ACT 12/02/2019 12:00:00 AM EDT 1.0 {spray_in_each_nostril} acti ve Flonase Allergy Relief 50 MCG/ACT eCW1 ([facility]) Flonase Allergy Relief 50 MCG/ACT Flonase Allergy Relief 50 MCG/ACT 12/02/2019 12:00:00 AM EDT 1.0 {spray_in_each_nostril} acti ve Flonase Allergy Relief 50 MCG/ACT eCW1 (Formerly [facility]) Flonase Allergy Relief 50 MCG/ACT Flonase Allergy Relief 50 MCG/ACT 12/02/2019 12:00:00 AM EDT 1.0 {spray_in_each_nostril} acti ve Flonase Allergy Relief 50 MCG/ACT eCW1 ([facility]) Flonase Allergy Relief 50 MCG/ACT Flonase Allergy Relief 50 MCG/ACT 12/02/2019 12:00:00 AM EDT 1.0 {spray_in_each_nostril} acti ve Flonase Allergy Relief 50 MCG/ACT eCW1 ([facility]) Flonase Allergy Relief 50 MCG/ACT Flonase Allergy Relief 50 MCG/ACT 12/02/2019 12:00:00 AM EDT 1.0 {spray_in_each_nostril} acti ve Flonase Allergy Relief 50 MCG/ACT eCW1 ([facility]) Flonase Allergy Relief 50 MCG/ACT Flonase Allergy Relief 50 MCG/ACT 12/02/2019 12:00:00 AM EDT 1.0 {spray_in_each_nostril} acti ve Flonase Allergy Relief 50 MCG/ACT eCW1 ([facility]) Flonase Allergy Relief 50 MCG/ACT Flonase Allergy Relief 50 MCG/ACT 12/02/2019 12:00:00 AM EDT 1.0 {spray_in_each_nostril} acti ve Flonase Allergy Relief 50 MCG/ACT eCW1 (Formerly [facility]) May Have - UNK 11/25/2019 12:00:00 AM EDT active May Have - eCW1 (Formerly [facility]) InCare Straight 14FR/20CM 1 UNK 11/25/2019 12:00:00 AM EDT active InCare [facility]ight 14FR/20CM 1 eCW1 (Formerly [facility]) May Have - UNK 11/25/2019 12:00:00 AM EDT active May Have - eCW1 (Formerly [facility]) [facility] 14FR/20CM 1 UNK 11/25/2019 12:00:00 AM EDT active [facility] 14FR/20CM 1 eCW1 ([facility]ly [facility]) Sodium Phosphate, Dibasic 59.3 MG/ML / S odium Phosphate, Monobasic 161 MG/ML Enema Fleet Enema 7-19 GM/118ML Fleet Enema 7-19 GM/118ML 11/25/2019 12:00:00 AM EDT active Fleet Enema 7-19 GM/118ML eCW1 ([facility]ly [facility]) Bisacodyl 10 MG Rectal Suppository Bisacodyl 10 MG 11/25/2019 12:00 :00 AM EDT 1.0 {suppository_as_needed} active Bisa codyl 10 MG eCW1 ([facility]ly [facility]) May Have - UNK 11/25/2019 12:00:00 AM EDT active May Have - eCW1 (Formerly [facility]) Sodium Phosphate, Dibasic 59.3 MG/ML / S odium Phosphate, Monobasic 161 MG/ML Enema Fleet Enema 7-19 GM/118ML Fleet Enema 7-19 GM/118ML 11/25/2019 12:00:00 AM EDT active Fleet Enema 7-19 GM/118ML eCW1 ([facility]ly [facility]) Bisacodyl 10 MG Rectal Suppository Bisacodyl 10 MG 11/25/2019 12:00 :00 AM EDT 1.0 {suppository_as_needed} active Bisa codyl 10 MG eCW1 ([facility]ly [facility]) Sodium Phosphate, Dibasic 59.3 MG/ML / S odium Phosphate, Monobasic 161 MG/ML Enema Fleet Enema 7-19 GM/118ML Fleet Enema 7-19 GM/118ML 11/25/2019 12:00:00 AM EDT active Fleet Enema 7-19 GM/118ML eCW1 ([facility]) May Have - UNK 11/25/2019 12:00:00 AM EDT active May Have - eCW1 ([facility]ly [facility]) [facility] 14FR/20CM 1 UNK 11/25/2019 12:00:00 AM EDT active [facility] 14FR/20CM 1 eCW1 ([facility]) Sodium Phosphate, Dibasic 59.3 MG/ML / S odium Phosphate, Monobasic 161 MG/ML Enema Fleet Enema 7-19 GM/118ML Fleet Enema 7-19 GM/118ML 11/25/2019 12:00:00 AM EDT active Fleet Enema 7-19 GM/118ML eCW1 ([facility]) Sodium Phosphate, Dibasic 59.3 MG/ML / S odium Phosphate, Monobasic 161 MG/ML Enema Fleet Enema 7-19 GM/118ML Fleet Enema 7-19 GM/118ML 11/25/2019 12:00:00 AM EDT active Fleet Enema 7-19 GM/118ML eCW1 ([facility]ly [facility]) May Have - UNK 11/25/2019 12:00:00 AM EDT active May Have - eCW1 ([facility]ly [facility]) Bisacodyl 10 MG Rectal Suppository Bisacodyl 10 MG 11/25/2019 12:00 :00 AM EDT 1.0 {suppository_as_needed} active Bisa codyl 10 MG eCW1 ([facility]) Sodium Phosphate, Dibasic 59.3 MG/ML / S odium Phosphate, Monobasic 161 MG/ML Enema Fleet Enema 7-19 GM/118ML Fleet Enema 7-19 GM/118ML 11/25/2019 12:00:00 AM EDT active Fleet Enema 7-19 GM/118ML eCW1 ([facility]) [facility] 14FR/20CM 1 UNK 11/25/2019 12:00:00 AM EDT active [facility]Care [facility] 14FR/20CM 1 eCW1 ([facility]) Sodium Phosphate, Dibasic 59.3 MG/ML / S odium Phosphate, Monobasic 161 MG/ML Enema Fleet Enema 7-19 GM/118ML Fleet Enema 7-19 GM/118ML 11/25/2019 12:00:00 AM EDT active Fleet Enema 7-19 GM/118ML eCW1 ([facility]) Bisacodyl 10 MG Rectal Suppository Bisacodyl 10 MG 11/25/2019 12:00 :00 AM EDT 1.0 {suppository_as_needed} active Bisa codyl 10 MG eCW1 ([facility]) Sodium Phosphate, Dibasic 59.3 MG/ML / S odium Phosphate, Monobasic 161 MG/ML Enema Fleet Enema 7-19 GM/118ML Fleet Enema 7-19 GM/118ML 11/25/2019 12:00:00 AM EDT active Fleet Enema 7-19 GM/118ML eCW1 ([facility]) May Have - UNK 11/25/2019 12:00:00 AM EDT active May Have - eCW1 ([facility]) [facility]Care [facility] 14FR/20CM 1 UNK 11/25/2019 12:00:00 AM EDT active [facility] 14FR/20CM 1 eCW1 ([facility]) Sodium Phosphate, Dibasic 59.3 MG/ML / S odium Phosphate, Monobasic 161 MG/ML Enema Fleet Enema 7-19 GM/118ML Fleet Enema 7-19 GM/118ML 11/25/2019 12:00:00 AM EDT active Fleet Enema 7-19 GM/118ML eCW1 ([facility]) Bisacodyl 10 MG Rectal Suppository Bisacodyl 10 MG 11/25/2019 12:00 :00 AM EDT 1.0 {suppository_as_needed} active Bisa codyl 10 MG eCW1 ([facility]) May Have - UNK 11/25/2019 12:00:00 AM EDT active May Have - eCW1 ([facility]) May Have - UNK 11/25/2019 12:00:00 AM EDT active May Have - eCW1 ([facility]) Bisacodyl 10 MG Rectal Suppository Bisacodyl 10 MG 11/25/2019 12:00 :00 AM EDT 1.0 {suppository_as_needed} active Bisa codyl 10 MG eCW1 ([facility]) [facility] 14FR/20CM 1 UNK 11/25/2019 12:00:00 AM EDT active [facility] 14FR/20CM 1 eCW1 ([facility]) Bisacodyl 10 MG Rectal Suppository Bisacodyl 10 MG 11/25/2019 12:00 :00 AM EDT 1.0 {suppository_as_needed} active Bisa codyl 10 MG eCW1 ([facility]) Sodium Phosphate, Dibasic 59.3 MG/ML / S odium Phosphate, Monobasic 161 MG/ML Enema Fleet Enema 7-19 GM/118ML Fleet Enema 7-19 GM/118ML 11/25/2019 12:00:00 AM EDT active Fleet Enema 7-19 GM/118ML eCW1 ([facility]) Sodium Phosphate, Dibasic 59.3 MG/ML / S odium Phosphate, Monobasic 161 MG/ML Enema Fleet Enema 7-19 GM/118ML Fleet Enema 7-19 GM/118ML 11/25/2019 12:00:00 AM EDT active Fleet Enema 7-19 GM/118ML eCW1 ([facility]) Bisacodyl 10 MG Rectal Suppository Bisacodyl 10 MG 11/25/2019 12:00 :00 AM EDT 1.0 {suppository_as_needed} active Bisa codyl 10 MG eCW1 ([facility]) Bisacodyl 10 MG Rectal Suppository Bisacodyl 10 MG 11/25/2019 12:00 :00 AM EDT 1.0 {suppository_as_needed} active Bisa codyl 10 MG eCW1 ([facility]) Bisacodyl 10 MG Rectal Suppository Bisacodyl 10 MG 11/25/2019 12:00 :00 AM EDT 1.0 {suppository_as_needed} active Bisa codyl 10 MG eCW1 ([facility]) [facility] 14FR/20CM 1 UNK 11/25/2019 12:00:00 AM EDT active InCare [facility] 14FR/20CM 1 eCW1 ([facility]) May Have - UNK 11/25/2019 12:00:00 AM EDT active May Have - eCW1 ([facility]) May Have - UNK 11/25/2019 12:00:00 AM EDT active May Have - eCW1 ([facility]) [facility] 14FR/20CM 1 UNK 11/25/2019 12:00:00 AM EDT active InCare [facility] 14FR/20CM 1 eCW1 ([facility]) May Have - UNK 11/25/2019 12:00:00 AM EDT active May Have - eCW1 ([facility]) [facility] 14FR/20CM 1 UNK 11/25/2019 12:00:00 AM EDT active [facility]Care [facility] 14FR/20CM 1 eCW1 ([facility]) Bisacodyl 10 MG Rectal Suppository Bisacodyl 10 MG 11/25/2019 12:00 :00 AM EDT 1.0 {suppository_as_needed} active Bisa codyl 10 MG eCW1 ([facility]) [facility] 14FR/20CM 1 UNK 11/25/2019 12:00:00 AM EDT active [facility] 14FR/20CM 1 eCW1 ([facility]) Sodium Phosphate, Dibasic 59.3 MG/ML / S odium Phosphate, Monobasic 161 MG/ML Enema Fleet Enema 7-19 GM/118ML Fleet Enema 7-19 GM/118ML 11/25/2019 12:00:00 AM EDT active Fleet Enema 7-19 GM/118ML eCW1 ([facility]) Bisacodyl 10 MG Rectal Suppository Bisacodyl 10 MG 11/25/2019 12:00 :00 AM EDT 1.0 {suppository_as_needed} active Bisa codyl 10 MG eCW1 ([facility]) May Have - UNK 11/25/2019 12:00:00 AM EDT active May Have - eCW1 ([facility]) May Have - UNK 11/25/2019 12:00:00 AM EDT active May Have - eCW1 ([facility]) Sodium Phosphate, Dibasic 59.3 MG/ML / S odium Phosphate, Monobasic 161 MG/ML Enema Fleet Enema 7-19 GM/118ML Fleet Enema 7-19 GM/118ML 11/25/2019 12:00:00 AM EDT active Fleet Enema 7-19 GM/118ML eCW1 ([facility]) May Have - UNK 11/25/2019 12:00:00 AM EDT active May Have - eCW1 ([facility]) May Have - UNK 11/25/2019 12:00:00 AM EDT active May Have - eCW1 ([facility]) InCare [facility] 14FR/20CM 1 UNK 11/25/2019 12:00:00 AM EDT active InCare [facility] 14FR/20CM 1 eCW1 ([facility]) Sodium Phosphate, Dibasic 59.3 MG/ML / S odium Phosphate, Monobasic 161 MG/ML Enema Fleet Enema 7-19 GM/118ML Fleet Enema 7-19 GM/118ML 11/25/2019 12:00:00 AM EDT active Fleet Enema 7-19 GM/118ML eCW1 ([facility]) May Have - UNK 11/25/2019 12:00:00 AM EDT active May Have - eCW1 ([facility]) Sodium Phosphate, Dibasic 59.3 MG/ML / S odium Phosphate, Monobasic 161 MG/ML Enema Fleet Enema 7-19 GM/118ML Fleet Enema 7-19 GM/118ML 11/25/2019 12:00:00 AM EDT active Fleet Enema 7-19 GM/118ML eCW1 ([facility]) Bisacodyl 10 MG Rectal Suppository Bisacodyl 10 MG 11/25/2019 12:00 :00 AM EDT 1.0 {suppository_as_needed} active Bisa codyl 10 MG eCW1 ([facility]) Bisacodyl 10 MG Rectal Suppository Bisacodyl 10 MG 11/25/2019 12:00 :00 AM EDT 1.0 {suppository_as_needed} active Bisa codyl 10 MG eCW1 ([facility]) InCare [facility]ight 14FR/20CM 1 UNK 11/25/2019 12:00:00 AM EDT active InCare Straight 14FR/20CM 1 eCW1 ([facility]) Sodium Phosphate, Dibasic 59.3 MG/ML / S odium Phosphate, Monobasic 161 MG/ML Enema Fleet Enema 7-19 GM/118ML Fleet Enema 7-19 GM/118ML 11/25/2019 12:00:00 AM EDT active Fleet Enema 7-19 GM/118ML eCW1 ([facility]) Bisacodyl 10 MG Rectal Suppository Bisacodyl 10 MG 11/25/2019 12:00 :00 AM EDT 1.0 {suppository_as_needed} active Bisa codyl 10 MG eCW1 ([facility]) May Have - UNK 11/25/2019 12:00:00 AM EDT active May Have - eCW1 ([facility]) Sodium Phosphate, Dibasic 59.3 MG/ML / S odium Phosphate, Monobasic 161 MG/ML Enema Fleet Enema 7-19 GM/118ML Fleet Enema 7-19 GM/118ML 11/25/2019 12:00:00 AM EDT active Fleet Enema 7-19 GM/118ML eCW1 ([facility]) Sodium Phosphate, Dibasic 59.3 MG/ML / S odium Phosphate, Monobasic 161 MG/ML Enema Fleet Enema 7-19 GM/118ML Fleet Enema 7-19 GM/118ML 11/25/2019 12:00:00 AM EDT active Fleet Enema 7-19 GM/118ML eCW1 ([facility]) May Have - UNK 11/25/2019 12:00:00 AM EDT active May Have - eCW1 ([facility]) InCare Straight 14FR/20CM 1 UNK 11/25/2019 12:00:00 AM EDT active InCare Straight 14FR/20CM 1 eCW1 ([facility]) May Have - UNK 11/25/2019 12:00:00 AM EDT active May Have - eCW1 ([facility]) InCare [facility]ight 14FR/20CM 1 UNK 11/25/2019 12:00:00 AM EDT active InCare Straight 14FR/20CM 1 eCW1 ([facility]) May Have - UNK 11/25/2019 12:00:00 AM EDT active May Have - eCW1 ([facility]) InCare Straight 14FR/20CM 1 UNK 11/25/2019 12:00:00 AM EDT active InCare [facility] 14FR/20CM 1 eCW1 ([facility]) Sodium Phosphate, Dibasic 59.3 MG/ML / S odium Phosphate, Monobasic 161 MG/ML Enema Fleet Enema 7-19 GM/118ML Fleet Enema 7-19 GM/118ML 11/25/2019 12:00:00 AM EDT active Fleet Enema 7-19 GM/118ML eCW1 ([facility]) Sodium Phosphate, Dibasic 59.3 MG/ML / S odium Phosphate, Monobasic 161 MG/ML Enema Fleet Enema 7-19 GM/118ML Fleet Enema 7-19 GM/118ML 11/25/2019 12:00:00 AM EDT active Fleet Enema 7-19 GM/118ML eCW1 ([facility]) InCare Stra[facility] 14FR/20CM 1 UNK 11/25/2019 12:00:00 AM EDT active InCare [facility] 14FR/20CM 1 eCW1 ([facility]) Sodium Phosphate, Dibasic 59.3 MG/ML / S odium Phosphate, Monobasic 161 MG/ML Enema Fleet Enema 7-19 GM/118ML Fleet Enema 7-19 GM/118ML 11/25/2019 12:00:00 AM EDT active Fleet Enema 7-19 GM/118ML eCW1 ([facility]) InCare Straight 14FR/20CM 1 UNK 11/25/2019 12:00:00 AM EDT active InCare Straight 14FR/20CM 1 eCW1 ([facility]) [facility] 14FR/20CM 1 UNK 11/25/2019 12:00:00 AM EDT active InCare [facility] 14FR/20CM 1 eCW1 ([facility]) Sodium Phosphate, Dibasic 59.3 MG/ML / S odium Phosphate, Monobasic 161 MG/ML Enema Fleet Enema 7-19 GM/118ML Fleet Enema 7-19 GM/118ML 11/25/2019 12:00:00 AM EDT active Fleet Enema 7-19 GM/118ML eCW1 ([facility]) InCare Straight 14FR/20CM 1 UNK 11/25/2019 12:00:00 AM EDT active InCare Stra[facility] 14FR/20CM 1 eCW1 ([facility]) Bisacodyl 10 MG Rectal Suppository Bisacodyl 10 MG 11/25/2019 12:00 :00 AM EDT 1.0 {suppository_as_needed} active Bisa codyl 10 MG eCW1 ([facility]) [facility] 14FR/20CM 1 UNK 11/25/2019 12:00:00 AM EDT active InCare [facility] 14FR/20CM 1 eCW1 ([facility]) Bisacodyl 10 MG Rectal Suppository Bisacodyl 10 MG 11/25/2019 12:00 :00 AM EDT 1.0 {suppository_as_needed} active Bisa codyl 10 MG eCW1 ([facility]) Sodium Phosphate, Dibasic 59.3 MG/ML / S odium Phosphate, Monobasic 161 MG/ML Enema Fleet Enema 7-19 GM/118ML Fleet Enema 7-19 GM/118ML 11/25/2019 12:00:00 AM EDT active Fleet Enema 7-19 GM/118ML eCW1 ([facility]) InCare Straight 14FR/20CM 1 UNK 11/25/2019 12:00:00 AM EDT active InCare Straight 14FR/20CM 1 eCW1 ([facility]) May Have - UNK 11/25/2019 12:00:00 AM EDT active May Have - eCW1 ([facility]) Bisacodyl 10 MG Rectal Suppository Bisacodyl 10 MG 11/25/2019 12:00 :00 AM EDT 1.0 {suppository_as_needed} active Bisa codyl 10 MG eCW1 ([facility]) Bisacodyl 10 MG Rectal Suppository Bisacodyl 10 MG 11/25/2019 12:00 :00 AM EDT 1.0 {suppository_as_needed} active Bisa codyl 10 MG eCW1 ([facility]) Bisacodyl 10 MG Rectal Suppository Bisacodyl 10 MG 11/25/2019 12:00 :00 AM EDT 1.0 {suppository_as_needed} active Bisa codyl 10 MG eCW1 ([facility]) May Have - UNK 11/25/2019 12:00:00 AM EDT active May Have - eCW1 ([facility]) May Have - UNK 11/25/2019 12:00:00 AM EDT active May Have - eCW1 ([facility]) InCare Straight 14FR/20CM 1 UNK 11/25/2019 12:00:00 AM EDT active InCare [facility] 14FR/20CM 1 eCW1 ([facility]) Sodium Phosphate, Dibasic 59.3 MG/ML / S odium Phosphate, Monobasic 161 MG/ML Enema Fleet Enema 7-19 GM/118ML Fleet Enema 7-19 GM/118ML 11/25/2019 12:00:00 AM EDT active Fleet Enema 7-19 GM/118ML eCW1 ([facility]) May Have - UNK 11/25/2019 12:00:00 AM EDT active May Have - eCW1 ([facility]) May Have - UNK 11/25/2019 12:00:00 AM EDT active May Have - eCW1 ([facility]) Bisacodyl 10 MG Rectal Suppository Bisacodyl 10 MG 11/25/2019 12:00 :00 AM EDT 1.0 {suppository_as_needed} active Bisa codyl 10 MG eCW1 ([facility]) InCare [facility]ight 14FR/20CM 1 UNK 11/25/2019 12:00:00 AM EDT active InCare [facility] 14FR/20CM 1 eCW1 ([facility]) Bisacodyl 10 MG Rectal Suppository Bisacodyl 10 MG 11/25/2019 12:00 :00 AM EDT 1.0 {suppository_as_needed} active Bisa codyl 10 MG eCW1 ([facility]) Bisacodyl 10 MG Rectal Suppository Bisacodyl 10 MG 11/25/2019 12:00 :00 AM EDT 1.0 {suppository_as_needed} active Bisa codyl 10 MG eCW1 ([facility]) May Have - UNK 11/25/2019 12:00:00 AM EDT active May Have - eCW1 ([facility]) InCare [facility]ight 14FR/20CM 1 UNK 11/25/2019 12:00:00 AM EDT active InCare [facility] 14FR/20CM 1 eCW1 ([facility]) Sodium Phosphate, Dibasic 59.3 MG/ML / S odium Phosphate, Monobasic 161 MG/ML Enema Fleet Enema 7-19 GM/118ML Fleet Enema 7-19 GM/118ML 11/25/2019 12:00:00 AM EDT active Fleet Enema 7-19 GM/118ML eCW1 ([facility]) Bisacodyl 10 MG Rectal Suppository Bisacodyl 10 MG 11/25/2019 12:00 :00 AM EDT 1.0 {suppository_as_needed} active Bisa codyl 10 MG eCW1 ([facility]) Bisacodyl 10 MG Rectal Suppository Bisacodyl 10 MG 11/25/2019 12:00 :00 AM EDT 1.0 {suppository_as_needed} active Bisa codyl 10 MG eCW1 (Formerly [facility]) [employer] 14FR/20CM 1 UNK 11/25/2019 12:00:00 AM EDT active [employer] 14FR/20CM 1 eCW1 (Formerly [facility]) [employer] 14FR/20CM 1 UNK 11/25/2019 12:00:00 AM EDT active [employer] 14FR/20CM 1 eCW1 (Formerly [facility]) Bisacodyl 10 MG Rectal Suppository Bisacodyl 10 MG 11/25/2019 12:00 :00 AM EDT 1.0 {suppository_as_needed} active Bisa codyl 10 MG eCW1 (Formerly [facility]) Sodium Phosphate, Dibasic 59.3 MG/ML / S odium Phosphate, Monobasic 161 MG/ML Enema Fleet Enema 7-19 GM/118ML Fleet Enema 7-19 GM/118ML 11/25/2019 12:00:00 AM EDT active Fleet Enema 7-19 GM/118ML eCW1 (Formerly [facility]) NITROFURANTOIN, MACROCRYSTALS 25 MG / Ni trofurantoin, Monohydrate 75 MG Oral Capsule Nitrofurantoin Monohyd Macro 100 MG Nitrofurantoin Monohyd Macro 100 MG 08/15/2019 12:00:00 AM EDT active Nitrofurantoin Monohyd Macro 100 MG eCW1 (Formerly [facility]) NITROFURANTOIN, MACROCRYSTALS 25 MG / Ni trofurantoin, Monohydrate 75 MG Oral Capsule Nitrofurantoin Monohyd Macro 100 MG Nitrofurantoin Monohyd Macro 100 MG 08/15/2019 12:00:00 AM EDT active Nitrofurantoin Monohyd Macro 100 MG eCW1 (Formerly [facility]) NITROFURANTOIN, MACROCRYSTALS 25 MG / Ni trofurantoin, Monohydrate 75 MG Oral Capsule Nitrofurantoin Monohyd Macro 100 MG Nitrofurantoin Monohyd Macro 100 MG 08/15/2019 12:00:00 AM EDT active Nitrofurantoin Monohyd Macro 100 MG eCW1 (Formerly [facility]) NITROFURANTOIN, MACROCRYSTALS 25 MG / Ni trofurantoin, Monohydrate 75 MG Oral Capsule Nitrofurantoin Monohyd Macro 100 MG Nitrofurantoin Monohyd Macro 100 MG 08/15/2019 12:00:00 AM EDT active Nitrofurantoin Monohyd Macro 100 MG eCW1 (Formerly [facility]) NITROFURANTOIN, MACROCRYSTALS 25 MG / Ni trofurantoin, Monohydrate 75 MG Oral Capsule Nitrofurantoin Monohyd Macro 100 MG Nitrofurantoin Monohyd Macro 100 MG 08/15/2019 12:00:00 AM EDT active Nitrofurantoin Monohyd Macro 100 MG eCW1 (Formerly [facility]) NITROFURANTOIN, MACROCRYSTALS 25 MG / Ni trofurantoin, Monohydrate 75 MG Oral Capsule Nitrofurantoin Monohyd Macro 100 MG Nitrofurantoin Monohyd Macro 100 MG 08/15/2019 12:00:00 AM EDT active Nitrofurantoin Monohyd Macro 100 MG eCW1 (Formerly [facility]) NITROFURANTOIN, MACROCRYSTALS 25 MG / Ni trofurantoin, Monohydrate 75 MG Oral Capsule Nitrofurantoin Monohyd Macro 100 MG Nitrofurantoin Monohyd Macro 100 MG 08/15/2019 12:00:00 AM EDT active Nitrofurantoin Monohyd Macro 100 MG eCW1 (Formerly [facility]) NITROFURANTOIN, MACROCRYSTALS 25 MG / Ni trofurantoin, Monohydrate 75 MG Oral Capsule Nitrofurantoin Monohyd Macro 100 MG Nitrofurantoin Monohyd Macro 100 MG 08/15/2019 12:00:00 AM EDT active Nitrofurantoin Monohyd Macro 100 MG eCW1 (Formerly [facility]) NITROFURANTOIN, MACROCRYSTALS 25 MG / Ni trofurantoin, Monohydrate 75 MG Oral Capsule Nitrofurantoin Monohyd Macro 100 MG Nitrofurantoin Monohyd Macro 100 MG 08/15/2019 12:00:00 AM EDT active Nitrofurantoin Monohyd Macro 100 MG eCW1 (Formerly [facility]) NITROFURANTOIN, MACROCRYSTALS 25 MG / Ni trofurantoin, Monohydrate 75 MG Oral Capsule Nitrofurantoin Monohyd Macro 100 MG Nitrofurantoin Monohyd Macro 100 MG 08/15/2019 12:00:00 AM EDT active Nitrofurantoin Monohyd Macro 100 MG eCW1 (Formerly [facility]) NITROFURANTOIN, MACROCRYSTALS 25 MG / Ni trofurantoin, Monohydrate 75 MG Oral Capsule Nitrofurantoin Monohyd Macro 100 MG Nitrofurantoin Monohyd Macro 100 MG 08/15/2019 12:00:00 AM EDT active Nitrofurantoin Monohyd Macro 100 MG eCW1 (Formerly [facility]) NITROFURANTOIN, MACROCRYSTALS 25 MG / Ni trofurantoin, Monohydrate 75 MG Oral Capsule Nitrofurantoin Monohyd Macro 100 MG Nitrofurantoin Monohyd Macro 100 MG 08/15/2019 12:00:00 AM EDT active Nitrofurantoin Monohyd Macro 100 MG eCW1 (Formerly [facility]) NITROFURANTOIN, MACROCRYSTALS 25 MG / Ni trofurantoin, Monohydrate 75 MG Oral Capsule Nitrofurantoin Monohyd Macro 100 MG Nitrofurantoin Monohyd Macro 100 MG 08/15/2019 12:00:00 AM EDT active Nitrofurantoin Monohyd Macro 100 MG eCW1 (Formerly [facility]) NITROFURANTOIN, MACROCRYSTALS 25 MG / Ni trofurantoin, Monohydrate 75 MG Oral Capsule Nitrofurantoin Monohyd Macro 100 MG Nitrofurantoin Monohyd Macro 100 MG 08/15/2019 12:00:00 AM EDT active Nitrofurantoin Monohyd Macro 100 MG eCW1 (Formerly [facility]) NITROFURANTOIN, MACROCRYSTALS 25 MG / Ni trofurantoin, Monohydrate 75 MG Oral Capsule Nitrofurantoin Monohyd Macro 100 MG Nitrofurantoin Monohyd Macro 100 MG 08/15/2019 12:00:00 AM EDT active Nitrofurantoin Monohyd Macro 100 MG eCW1 (Formerly [facility]) NITROFURANTOIN, MACROCRYSTALS 25 MG / Ni trofurantoin, Monohydrate 75 MG Oral Capsule Nitrofurantoin Monohyd Macro 100 MG Nitrofurantoin Monohyd Macro 100 MG 08/15/2019 12:00:00 AM EDT active Nitrofurantoin Monohyd Macro 100 MG eCW1 (Formerly [facility]) NITROFURANTOIN, MACROCRYSTALS 25 MG / Ni trofurantoin, Monohydrate 75 MG Oral Capsule Nitrofurantoin Monohyd Macro 100 MG Nitrofurantoin Monohyd Macro 100 MG 08/15/2019 12:00:00 AM EDT active Nitrofurantoin Monohyd Macro 100 MG eCW1 (Formerly [facility]) NITROFURANTOIN, MACROCRYSTALS 25 MG / Ni trofurantoin, Monohydrate 75 MG Oral Capsule Nitrofurantoin Monohyd Macro 100 MG Nitrofurantoin Monohyd Macro 100 MG 08/15/2019 12:00:00 AM EDT active Nitrofurantoin Monohyd Macro 100 MG eCW1 (Formerly [facility]) NITROFURANTOIN, MACROCRYSTALS 25 MG / Ni trofurantoin, Monohydrate 75 MG Oral Capsule Nitrofurantoin Monohyd Macro 100 MG Nitrofurantoin Monohyd Macro 100 MG 08/15/2019 12:00:00 AM EDT active Nitrofurantoin Monohyd Macro 100 MG eCW1 (Formerly [facility]) NITROFURANTOIN, MACROCRYSTALS 25 MG / Ni trofurantoin, Monohydrate 75 MG Oral Capsule Nitrofurantoin Monohyd Macro 100 MG Nitrofurantoin Monohyd Macro 100 MG 08/15/2019 12:00:00 AM EDT active Nitrofurantoin Monohyd Macro 100 MG eCW1 (Formerly [facility]) NITROFURANTOIN, MACROCRYSTALS 25 MG / Ni trofurantoin, Monohydrate 75 MG Oral Capsule Nitrofurantoin Monohyd Macro 100 MG Nitrofurantoin Monohyd Macro 100 MG 08/15/2019 12:00:00 AM EDT active Nitrofurantoin Monohyd Macro 100 MG eCW1 (Formerly [facility]) Chlorthalidone 25 MG Oral Tablet Chlorthalidone 25 MG 2019 12:00:00 AM EDT 1.0 {tablet} active Chlorthalid one 25 MG eCW1 (Formerly [facility]) Chlorthalidone 25 MG Oral Tablet Chlorthalidone 25 MG 2019 12:00:00 AM EDT 1.0 {tablet} active Chlorthalid one 25 MG eCW1 (Formerly [facility]) Chlorthalidone 25 MG Oral Tablet Chlorthalidone 25 MG 2019 12:00:00 AM EDT 1.0 {tablet} active Chlorthalid one 25 MG eCW1 (Formerly [facility]) Chlorthalidone 25 MG Oral Tablet Chlorthalidone 25 MG 2019 12:00:00 AM EDT 1.0 {tablet} active Chlorthalid one 25 MG eCW1 (Formerly [facility]) Chlorthalidone 25 MG Oral Tablet Chlorthalidone 25 MG 2019 12:00:00 AM EDT 1.0 {tablet} active Chlorthalid one 25 MG eCW1 (Formerly [facility]) Chlorthalidone 25 MG Oral Tablet Chlorthalidone 25 MG 2019 12:00:00 AM EDT 1.0 {tablet} active Chlorthalid one 25 MG eCW1 (Formerly [facility]) Chlorthalidone 25 MG Oral Tablet Chlorthalidone 25 MG 2019 12:00:00 AM EDT 1.0 {tablet} active Chlorthalid one 25 MG eCW1 (Formerly [facility]) Chlorthalidone 25 MG Oral Tablet Chlorthalidone 25 MG 2019 12:00:00 AM EDT 1.0 {tablet} active Chlorthalid one 25 MG eCW1 (Formerly [facility]) Chlorthalidone 25 MG Oral Tablet Chlorthalidone 25 MG 2019 12:00:00 AM EDT 1.0 {tablet} active Chlorthalid one 25 MG eCW1 (Formerly [facility]) Chlorthalidone 25 MG Oral Tablet Chlorthalidone 25 MG 2019 12:00:00 AM EDT 1.0 {tablet} active Chlorthalid one 25 MG eCW1 (Formerly [facility]) Chlorthalidone 25 MG Oral Tablet Chlorthalidone 25 MG 2019 12:00:00 AM EDT 1.0 {tablet} active Chlorthalid one 25 MG eCW1 ([facility]ly [facility]) Chlorthalidone 25 MG Oral Tablet Chlorthalidone 25 MG 2019 12:00:00 AM EDT 1.0 {tablet} active Chlorthalid one 25 MG eCW1 (Formerly [facility]) Chlorthalidone 25 MG Oral Tablet Chlorthalidone 25 MG 2019 12:00:00 AM EDT 1.0 {tablet} active Chlorthalid one 25 MG eCW1 (Formerly [facility]) Chlorthalidone 25 MG Oral Tablet Chlorthalidone 25 MG 2019 12:00:00 AM EDT 1.0 {tablet} active Chlorthalid one 25 MG eCW1 (Formerly [facility]) Chlorthalidone 25 MG Oral Tablet Chlorthalidone 25 MG 2019 12:00:00 AM EDT 1.0 {tablet} active Chlorthalid one 25 MG eCW1 (Formerly [facility]) Chlorthalidone 25 MG Oral Tablet Chlorthalidone 25 MG 2019 12:00:00 AM EDT 1.0 {tablet} active Chlorthalid one 25 MG eCW1 (Formerly [facility]) Chlorthalidone 25 MG Oral Tablet Chlorthalidone 25 MG 2019 12:00:00 AM EDT 1.0 {tablet} active Chlorthalid one 25 MG eCW1 (Formerly [facility]) Chlorthalidone 25 MG Oral Tablet Chlorthalidone 25 MG 2019 12:00:00 AM EDT 1.0 {tablet} active Chlorthalid one 25 MG eCW1 (Formerly [facility]) Chlorthalidone 25 MG Oral Tablet Chlorthalidone 25 MG 2019 12:00:00 AM EDT 1.0 {tablet} active Chlorthalid one 25 MG eCW1 (Formerly [facility]) Chlorthalidone 25 MG Oral Tablet Chlorthalidone 25 MG 2019 12:00:00 AM EDT 1.0 {tablet} active Chlorthalid one 25 MG eCW1 ([facility]ly [facility]) Chlorthalidone 25 MG Oral Tablet Chlorthalidone 25 MG 2019 12:00:00 AM EDT 1.0 {tablet} active Chlorthalid one 25 MG eCW1 ([facility]ly [facility]) Chlorthalidone 25 MG Oral Tablet Chlorthalidone 25 MG 2019 12:00:00 AM EDT 1.0 {tablet} active Chlorthalid one 25 MG eCW1 ([facility]ly [facility]) Chlorthalidone 25 MG Oral Tablet Chlorthalidone 25 MG 2019 12:00:00 AM EDT 1.0 {tablet} active Chlorthalid one 25 MG eCW1 ([facility]ly [facility]) Chlorthalidone 25 MG Oral Tablet Chlorthalidone 25 MG 2019 12:00:00 AM EDT 1.0 {tablet} active Chlorthalid one 25 MG eCW1 ([facility]ly [facility]) Chlorthalidone 25 MG Oral Tablet Chlorthalidone 25 MG 2019 12:00:00 AM EDT 1.0 {tablet} active Chlorthalid one 25 MG eCW1 ([facility]ly [facility]) Chlorthalidone 25 MG Oral Tablet Chlorthalidone 25 MG 2019 12:00:00 AM EDT 1.0 {tablet} active Chlorthalid one 25 MG eCW1 (Formerly [facility]) May Have - UNK 07/14/2019 12:00:00 AM EDT active rest periods throught the day eCW1 (Formerly [facility]) Oseltamivir 75 MG Oral Capsule Oseltamivir Phosphate 7 5 MG Oseltamivir Phosphate 75 MG 07/01/2019 12:00:00 AM EDT active 1 capsule eCW1 (Formerly [facility]) Wheelchair _ UNK 03/18/2019 12:00:00 AM EST activ e Wheelchair _ eCW1 ([facility]ly [facility]) Wheelchair _ UNK 03/18/2019 12:00:00 AM EST activ e Wheelchair _ eCW1 ([facility]ly [facility]) Wheelchair _ UNK 03/18/2019 12:00:00 AM EST activ e Wheelchair _ eCW1 ([facility]) Wheelchair _ UNK 03/18/2019 12:00:00 AM EST activ e Wheelchair _ eCW1 ([facility]) Wheelchair _ UNK 03/18/2019 12:00:00 AM EST activ e Wheelchair _ eCW1 ([facility]) Wheelchair _ UNK 03/18/2019 12:00:00 AM EST activ e Wheelchair _ eCW1 ([facility]) Wheelchair _ UNK 03/18/2019 12:00:00 AM EST activ e Wheelchair _ eCW1 ([facility]) Wheelchair _ UNK 03/18/2019 12:00:00 AM EST activ e Wheelchair _ eCW1 ([facility]) Wheelchair _ UNK 03/18/2019 12:00:00 AM EST activ e Wheelchair _ eCW1 ([facility]) Wheelchair _ UNK 03/18/2019 12:00:00 AM EST activ e Wheelchair _ eCW1 ([facility]) Wheelchair _ UNK 03/18/2019 12:00:00 AM EST activ e Wheelchair _ eCW1 ([facility]) Wheelchair _ UNK 03/18/2019 12:00:00 AM EST activ e Wheelchair _ eCW1 ([facility]) Wheelchair _ UNK 03/18/2019 12:00:00 AM EST activ e Wheelchair _ eCW1 ([facility]ly [facility]) Wheelchair _ UNK 03/18/2019 12:00:00 AM EST active Ifeanyi height manual wheelchair with accessories eCW1 ([facility]ly [facility]) Wheelchair _ UNK 03/18/2019 12:00:00 AM EST activ e Wheelchair _ eCW1 ([facility]) Wheelchair _ UNK 03/18/2019 12:00:00 AM EST activ e Wheelchair _ eCW1 ([facility]) Wheelchair _ UNK 03/18/2019 12:00:00 AM EST activ e Wheelchair _ eCW1 ([facility]) Wheelchair _ UNK 03/18/2019 12:00:00 AM EST activ e Wheelchair _ eCW1 ([facility]) Wheelchair _ UNK 03/18/2019 12:00:00 AM EST activ e Wheelchair _ eCW1 ([facility]) Wheelchair _ UNK 03/18/2019 12:00:00 AM EST activ e Wheelchair _ eCW1 ([facility]) Wheelchair _ UNK 03/18/2019 12:00:00 AM EST activ e Wheelchair _ eCW1 ([facility]) Wheelchair _ UNK 03/18/2019 12:00:00 AM EST active Ifeanyi height manual wheelchair with accessories eCW1 ([facility]) Wheelchair _ UNK 03/18/2019 12:00:00 AM EST activ e Wheelchair _ eCW1 ([facility]) Wheelchair _ UNK 03/18/2019 12:00:00 AM EST activ e Wheelchair _ eCW1 ([facility]) Wheelchair _ UNK 03/18/2019 12:00:00 AM EST activ e Wheelchair _ eCW1 ([facility]) Wheelchair _ UNK 03/18/2019 12:00:00 AM EST activ e Wheelchair _ eCW1 ([facility]) Wheelchair _ UNK 03/18/2019 12:00:00 AM EST activ e Wheelchair _ eCW1 ([facility]) Wheelchair _ UNK 03/18/2019 12:00:00 AM EST activ e Wheelchair _ eCW1 ([facility]) Wheelchair _ UNK 03/18/2019 12:00:00 AM EST activ e Wheelchair _ eCW1 ([facility]) Wheelchair _ UNK 03/18/2019 12:00:00 AM EST activ e Wheelchair _ eCW1 ([facility]) Wheelchair _ UNK 03/18/2019 12:00:00 AM EST activ e Wheelchair _ eCW1 ([facility]) Wheelchair _ UNK 03/18/2019 12:00:00 AM EST activ e Wheelchair _ eCW1 ([facility]) Wheelchair _ UNK 03/18/2019 12:00:00 AM EST activ e Wheelchair _ eCW1 ([facility]) Wheelchair _ UNK 03/18/2019 12:00:00 AM EST activ e Wheelchair _ eCW1 ([facility]) Wheelchair _ UNK 03/18/2019 12:00:00 AM EST activ e Wheelchair _ eCW1 ([facility]) Wheelchair _ UNK 03/18/2019 12:00:00 AM EST activ e Wheelchair _ eCW1 ([facility]) Wheelchair _ UNK 03/18/2019 12:00:00 AM EST activ e Wheelchair _ eCW1 ([facility]) Wheelchair _ UNK 03/18/2019 12:00:00 AM EST activ e Wheelchair _ eCW1 ([facility]ly [facility]) Doxycycline Monohydrate 100 MG Oral Capsule Doxycycline [place] hydrate 03/11/2019 12:00:00 AM EST ORAL active M EDENT ([facility], [facility]) Mupirocin 0.02 MG/MG Topical Ointment Mupirocin 03/11/2019 12:00:00 AM EST active MEDENT ([facility], [facility]) Cephalexin 500 MG Oral Capsule [Keflex] Keflex 500 MG Keflex 500 MG 01/11/2019 12:00:00 AM EST active 1 capsul e eCW1 ([facility]ly [facility]) Triamcinolone Acetonide 1 MG/ML Topical Cream Triamcin olone Acetonide 0.1 % Triamcinolone Acetonide 0.1 % 1.0 {application_to_affected_a hector} active Triamcinolone Acetonide 0.1 % eC W1 ([facility]ly [facility]) Triamcinolone Acetonide 1 MG/ML Topical Cream Triamcin olone Acetonide 0.1 % Triamcinolone Acetonide 0.1 % 1.0 {application_to_affected_a hector} active Triamcinolone Acetonide 0.1 % eC W1 ([facility]ly [facility]) Insurance Providers Payer name Policy type / Coverage type Policy ID Covered democrat ID Covered democrat's relationship to millan Policy Millan Plan Information EMEDNY [id number] SP [id number] MEDICARE [id number] SP [id number] MEDICARE [id number] SP [id number] MEDICAID -O/P MARLENA [id number] 18 [id number] MEDICARE PART A -O [id number] 18 [id number] MEDICARE PART A -I/P [id number] 18 [id number] MEDICAID -I/P [id number] MEDICARE PART A -O/P [id number] 18 [id number] MEDICAID -O/P [place]ERGENCY [place] [id number] 18 [id number] MEDICAID [id number] SP [id number] ANSI-Medicare Part B [id number] ANSI-Medicaid [id number] ANSI-Medicaid [id number] ANSI-Medicare Part B [id number] ANSI-Medicare Part B [id number] ANS-Medicaid [id number] Medicare Part B Medicare Primary [id number] Self [id number] Medicaid [facility] Part B [id number] Self [id number] ANSI-Medicare Part B [id number] ANSI-Medicaid [id number] MEDICARE [id number] SP [id number] ANSI-Medicare Part B [id number] ANSI-Medicaid [id number] ANSI-Medicare Part B [id number] ANSI-Medicaid [id number] ANSI-Medicare Part B [id number] ANSI-Medicaid [id number] ANSI-Medicare Part B [id number] ANSI-Medicaid [id number] ANSI-Medicaid [id number] ANSI-Medicare Part B [id number] ANSI-Medicare Part B [id number] ANSI-Medicaid [id number] ANSI-Medicaid [id number] ANSI-Medicare Part B [id number] Medicaid [place] [facility] Part B [id number] Self [id number] Medicare Natl Gov't Servi Medicare Primary [id number] Self [id number] ANSI-Medicare Part B [id number] ANSI-Medicaid [id number] Medicare Part B Medicare Primary [id number] Self [id number] ANSI-Medicare Part B [id number] ANSI-Medicaid [id number] ANSI-Medicaid [id number] ANSI-Medicare Part B [id number] ANSI-Medicare Part B [id number] ANSI-Medicaid [id number] Medicare Natl Gov't Servi Medicare Primary [id number] Self [id number] ANSI-Medicaid [id number] ANSI-Medicare Part B [id number] ANSI-Medicare Part B [id number] ANSI-Medicaid [id number] ANSI-Medicare Part B [id number] ANSI-Medicaid [id number] ANSI-Medicaid [id number] ANSI-Medicare Part B [id number] ANSI-Medicare Part B [id number] ANSI-Medicaid [id number] Medicare Part B Medicare Primary [id number] Self [id number] ANSI-Medicare Part B [id number] ANSI-Medicaid [id number] ANSI-Medicare Part B [id number] ANSI-Medicaid [id number] ANSI-Medicaid [id number] ANSI-Medicare Part B [id number] ANSI-Medicaid [id number] ANSI-Medicare Part B [id number] ANSI-Medicaid [id number] ANSI-Medicare Part B [id number] ANSI-Medicaid [id number] ANSI-Medicare Part B [id number] ANSI-Medicare Part B [id number] ANSI-Medicaid [id number] ANSI-Medicare Part B [id number] ANSI-Medicaid [id number] ANSI-Medicaid [id number] ANSI-Medicare Part B [id number] Medicare Part B Medicare Primary [id number] Self [id number] Medicare Part B Medicare Primary [id number] Self [id number] Medicare [place] Gov't Servi Medicare Primary [id number] Self [id number] Medicare Part B Medicare Primary [id number] Self [id number] Medicare Part B Medicare Primary [id number] Self [id number] Medicare Part B Medicare Primary [id number] Self [id number] Medicare Part B Medicare Primary [id number] Self [id number] Medicare Part B Medicare Primary Self Medicaid Medicaid Self Medicare Medicare Primary Self SELF PAY UNAVAILABLE SP UNAVAILA BLE Medicaid [place] Medig[place] MED[place] S [id number] MEDICARE P [id number] S [id number] Problems, Conditions, and Diagnoses Code Display Name Description Problem Type Effective Dates Data Source(s) J30.2 201132877 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, 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 12/02/2019 12:00:00 AM EDT eCW1 ([facility]) [id number] Ingrowing nail Ingrowing nail Problem 11/24/2019 12:00: 00 AM EDT [facility] ([facility] 887221230 Onychomycosis Onychomycosis Problem 11/24/2019 12:00:00 AM EDT [facility] ([facility] [id number] Pain in limb Pain in limb Problem 11/24/2019 12:00:00 A M EDT [facility] ([facility] R13.12 [id number] Oropharyngeal dysphagia Problem 07/08/2019 1 2:00:00 AM EDT eCW1 ([facility]) R13.12 [id number] Oropharyngeal dysphagia Problem 07/08/2019 1 2:00:00 AM EDT eCW1 ([facility]) K449 Diaphragmatic hernia without obstruction or gangrene Diaphragmatic hernia without obstruction or gangrene Diagnosis 10/10/2019 10:35:00 AM EDT [facility] Z1159 Encounter for screening for other viral diseases Encounter for screening for other viral diseases Diagnosis 10/10/2019 10:35:00 AM EDT [facility] E876 Hypokalemia Hypokalemia Diagnosis 10/09/2019 07:15:00 PM EDT [facility] R569 Unspecified convulsions Unspecified convulsions Diagno sis 10/09/2019 07:15:00 PM EDT [facility] I10 Essential (primary) hypertension Essential (primary) h ypertension Diagnosis 10/09/2019 07:15:00 PM EDT [facility] H548 Legal blindness, as defined in [place] Legal blindne ss, as defined in [place] Diagnosis 10/09/2019 07:15:00 PM EDT [facility] G809 Cerebral palsy, unspecified Cerebral palsy, unspecifie d Diagnosis 10/09/2019 07:15:00 PM EDT [facility] K259 Gastric ulcer, unspecified a s acute or chronic, without hemorrhage or perforation Gastric ulcer, unspecified as acute or c hronic, without hemorrhage or perforation Diagnosis 10/09/2019 07:15:00 PM EDT [facility] M6282 Rhabdomyolysis Rhabdomyolysis Diagnosis 10/09/2019 07:15: 00 PM EDT [facility] N390 Urinary tract infection, site not specif ied Urinary tract infection, site not specified Diagnosis 10/09/2019 07:15:00 PM EDT [facility] A419 Sepsis, unspecified organism Sepsis, unspecified organ ism Diagnosis 10/09/2019 07:15:00 PM EDT [facility] J189 Pneumonia, unspecified organism Pneumonia, unspecified organism Diagnosis 10/09/2019 07:15:00 PM EDT [facility] Surgeries/Procedures Procedure Description Date Indications Data Source(s) DEBRIDEMENT NAIL ANY METHOD 6/> 11/18/2019 12:00:00 AM EDT ANA ([facility] Plain Radiography of Chest Plain Radiography of Chest 2019 12:00:00 AM T [facility] Monitoring of Cardiac Electrical Activity, External Ap proach Monitoring of Cardiac Electrical Activity, External Approach 10/10/2019 12:00:00 AM EDT [facility] Introduction of Other Anti-infective int o Peripheral Vein, Percutaneous Approach Introduction of Other Anti-infective int o Peripheral Vein, Percutaneous Approach 10/10/2019 12:00:00 AM [facility] Introduction of Electrolytic and Water B alance Substance into Peripheral Vein, Percutaneous Approach Introduction of Electrolytic and Water B alance Substance into Peripheral Vein, Percutaneous Approach 10/10/2019 12:00:00 AM EDT [facility] Office Visit, Est Pt., Level 3 FC 07/01/2019 12:00:00 AM EDT eCW1 ([facility]) Office Visit, Est Pt., Level 3 PC 07/01/2019 12:00:00 AM EDT eCW1 ([facility]) Influenza A+B 07/01/2019 12:00:00 AM EDT eCW1 ([facility]) Office Visit, Est Pt., Level 4 PC 03/10/2019 12:00:00 AM EST eCW1 ([facility]) Results ID Date Data Source [id number] 01/30/2020 09:04:00 AM EST [facility] ([facility], ) Name Value Range Interpretation Code Description Data Trini rce(s) Supporting Document(s) Creatine kinase [Enzymatic activity/volume] in Serum or Plasma 82 U /L 39-308 [facility] ([facility], ) <content>note:<nlbl:demographic_changed> </content>
<content></content> Phenobarbital [Mass/volume] in Serum or Plasma 35.3 UG/ML 15.0-40.0 [facility] ([facility], ) <content>note:<nlbl:demographic_changed> </content>
<content></content> Phenytoin [Mass/volume] in Serum or Plasma 17.4 UG/ML 10.0-20.0 [facility] ([facility], ) <content>note:<nlbl:demographic_changed> </content>
<content></content> Levetiracetam [Mass/volume] in Serum or Plasma 15.4 ug/mL 10.0-40.0 [facility] ([facility], ) This test was developed and its performa nce characteristics determined by [facility]. It has not been cleared or approved by the Food and Drug Administration. Performed at: [address], [place], [place] [address] [address] [employer] Professor: Seng Nichols MD, Phone: [phone] ID Date Data Source [id number] 01/30/2020 09:04:00 AM EST [facility] ([facility], ) Name Value Range Interpretation Code Description Data Trini rce(s) Supporting Document(s) Blood Urea Nitrogen 14 mg/dL 7-18 [facility] (No [facility], ) Glucose, Fasting 164 mg/dL 70-100 [facility] ([facility], ) Creatinine For GFR 0.71 mg/dL 0.70-1.30 [facility] ([facility]) Glomerular Filtration Rate Laboratory test result [facility] ([facility]) <content>Units are mL/min/1.73 m2</content>
<content></content>
<content>Chronic Kidney Disease Staging per NKF:</content>
<content></content>
<content>Stage I & II GFR >=60 Normal to Mildly Decreased</content>
<content>Stage III GFR 30- 59 Moderately Decreased</content>
<content>Stage IV GFR 15-29 Severely Decreased</content>
<content>Stage V GFR <15 Very Little GFR Left</content>
<content>ESRD GFR <15 on AIR [employer] REPAIRER</content>
<content></content> Sodium Level 139 meq/L 136-145 [facility] ([facility], ) Potassium Serum 4.6 meq/L 3.5-5.1 [facility] ([facility], ) Chloride Level 105 meq/L 98-107 [facility] ([facility], ) Calcium Level 8.9 mg/dL 8.5-10.1 [facility] ([facility], ) Carbon Dioxide Level 28 meq/L 21-32 [facility] ([facility], ) Anion Gap 6 meq/L 8-16 [facility] ([facility], ) Alt/SGPT 34 U/L 12-78 [facility] ([facility]) Ast/Sgot 15 U/L 7-37 [facility] ([facility]) Bilirubin,Total 0.2 mg/dL 0.2-1.0 [facility] ([facility]) Alkaline Phosphatase 112 U/L 45-117 [facility] ([facility]) Total Protein 7.4 GM/DL 6.4-8.2 [facility] ([facility]) Albumin 3.5 GM/DL 3.2-5.2 [facility] ([facility]) Albumin/Globulin Ratio 0.9 [facility] ([facility]) ID Date Data Source [id number] 01/30/2020 09:04:00 AM EST [facility] ([facility]) Name Value Range Interpretation Code Description Data Trini rce(s) Supporting Document(s) Red Blood Count 4.60 10 4.30-6.10 [facility] ([facility]) White Blood Count 5.4 10 4.0-10.0 [facility] ([facility]) Hemoglobin 12.2 g/dL 13.5-17.5 [facility] ([facility]) Hematocrit 39.6 % 42.0-52.0 [facility] ([facility]) Mean Corpuscular HGB Conc 30.8 g/dL 32.0-36.5 [facility] ([facility]) Mean Corpuscular Hemoglobin 26.5 pg 27.0-33.0 [facility] ([facility]) Mean Corpuscular Volume 86.1 fl 80.0-96.0 M [facility]ENT ([facility]) Platelet Count, Automated 547 10 150-450 [facility] ([facility]) Red Cell Distribution Width 14.1 % 11.5-14.5 [facility] ([facility]) Neutrophils % 47.5 % 36.0-66.0 [facility] ([facility]) Lymph % 36.6 % 24.0-44.0 [facility] ([facility]) [place] % 13.8 % 0.0-5.0 [facility] ([facility]) Eos % 1.1 % 0.0-3.0 [facility] ([facility]) Baso % 0.6 % 0.0-1.0 [facility] ([facility]) Immature Granulocyte % 0.4 % 0-3.0 [facility] ([facility]) Nucleated Red Blood Cell % 0.0 % 0-0 [facility] ([facility]) Neutrophils # 2.5 10 1.5-8.5 [facility] ([facility]) [place] # 0.7 10 0.0-0.8 [facility] ([facility]) Eos # 0.1 10 0.0-0.5 [facility] ([facility]) Lymph # 2.0 10 1.5-5.0 [facility] ([facility] Baso # 0.0 10 0.0-0.2 [facility] ([facility]) ID Date Data Source PHENYTOIN (DILANTIN) 01/30/2020 12:00:00 AM EST eCW1 ([facility]) Name Value Range Interpretation Code Description Data Trini rce(s) Supporting Document(s) 17.4 10.0-20.0 PHENYTOIN (DILANTIN) eCW1 ([facility]) ID Date Data Source Comprehensive Metabolic Profile (CMP) 01/30/2020 12:00:00 AM EST eCW1 ([facility]) Name Value Range Interpretation Code Description Data Trini rce(s) Supporting Document(s) 164 70-100 GLUCOSE, FASTING eCW1 ([facility]) 14 7-18 BLOOD UREA NITROGEN eCW1 ([facility]) 0.71 0.70-1.30 CREATININE FOR GFR eCW1 ([facility]) > 60.0 >56 GLOMERULAR FILTRATION RATE eCW 1 ([facility]) 105 98-107 CHLORIDE LEVEL eCW1 ([facility]) 139 136-145 SODIUM LEVEL eCW1 ([facility]) 4.6 3.5-5.1 POTASSIUM SERUM eCW1 ([facility]) 28 21-32 CARBON DIOXIDE LEVEL eCW1 ([facility]) 112 45-117 ALKALINE PHOSPHATASE eCW1 ([facility]) 8.9 8.5-10.1 CALCIUM LEVEL eCW1 ([facility]) 34 12-78 ALT/SGPT eCW1 ([facility]) 15 7-37 AST/SGOT eCW1 ([facility]) 7.4 6.4-8.2 TOTAL PROTEIN eCW1 ([facility]) 0.9 ALBUMIN/GLOBULIN RATIO eCW1 ([facility]) 0.2 0.2-1.0 BILIRUBIN,TOTAL eCW1 ([facility]) 3.5 3.2-5.2 ALBUMIN eCW1 ([facility]) ID Date Data Source CPK CREATINE PHOSPHOKINASE 01/30/2020 12:00:00 AM EST eCW1 ( [facility]) Name Value Range Interpretation Code Description Data Trini rce(s) Supporting Document(s) 82 39-308 CPK CREATINE PHOSPHOKINASE eCW 1 ([facility]) ID Date Data Source CBC with Differential 01/30/2020 12:00:00 AM EST eCW1 ([facility]) Name Value Range Interpretation Code Description Data Trini rce(s) Supporting Document(s) 5.4 4.0-10.0 WHITE BLOOD COUNT eCW1 ([facility]) 12.2 13.5-17.5 HEMOGLOBIN eCW1 ([facility]) 4.60 4.30-6.10 RED BLOOD COUNT eCW1 ([facility]) 39.6 42.0-52.0 HEMATOCRIT eCW1 ([facility]) 86.1 80.0-96.0 MEAN CORPUSCULAR VOLUME e CW1 ([facility]) 30.8 32.0-36.5 MEAN CORPUSCULAR HGB CONC eCW1 ([facility]) 26.5 27.0-33.0 MEAN CORPUSCULAR HEMOGLOB IN eCW1 ([facility]) 14.1 11.5-14.5 RED CELL DISTRIBUTION WID TH eCW1 ([facility]) 47.5 36.0-66.0 NEUTROPHILS % eCW1 ([facility]) 13.8 0.0-5.0 MONO % eCW1 ([facility]) 547 150-450 PLATELET COUNT, AUTOMATED eCW1 ([facility]) 36.6 24.0-44.0 LYMPH % eCW1 ([facility]) 2.0 1.5-5.0 LYMPH # eCW1 ([facility]) 0.6 0.0-1.0 BASO % eCW1 ([facility]) 2.5 1.5-8.5 NEUTROPHILS # eCW1 ([facility]) 1.1 0.0-3.0 EOS % eCW1 ([facility]) 0.7 0.0-0.8 MONO # eCW1 ([facility]) 0.0 0.0-0.2 BASO # eCW1 ([facility]) 0.1 0.0-0.5 EOS # eCW1 ([facility]) ID Date Data Source PHENOBARBITAL LEVEL 01/30/2020 12:00:00 AM EST eCW1 ([facility]) Name Value Range Interpretation Code Description Data Trini rce(s) Supporting Document(s) 35.3 15.0-40.0 PHENOBARBITAL LEVEL eCW1 ([facility]) ID Date Data Source [id number] 01/17/2020 03:27:00 PM EST [facility] Name Value Range Interpretation Code Description Data Trini rce(s) Supporting Document(s) SARS coronavirus 2 RNA [Presence] in Res piratory specimen by LORIE with probe detection [facility] This lab was ordered by [facility] a nd reported by [facility]. ID Date Data Source [id number] 01/16/2020 12:30:00 PM EST [facility] Name Value Range Interpretation Code Description Data Trini rce(s) Supporting Document(s) SARS coronavirus 2 RNA [facility] This lab was ordered by [facility] and reported by [facility]. ID Date Data Source C REACTIVE PROTEIN QUANTITATIV (At [facility]) 12/02/2019 05:56 :51 AM EDT eCW1 ([facility]) Name Value Range Interpretation Code Description Data Trini rce(s) Supporting Document(s) 1.09 C REACTIVE PROTEIN QUANTITATIV eCW1 ([facility]) ID Date Data Source ERYTHROCYTE SEDIMENTATION RATE 12/02/2019 03:51:51 AM EDT eC W1 ([facility]) Name Value Range Interpretation Code Description Data Trini rce(s) Supporting Document(s) 26 ERYTHROCYTE SEDIMENTATION RATE eCW1 ([facility]) ID Date Data Source [id number] 10/15/2019 12:14:00 [place] [address] PROGRESS NOTENAME: ANAI ARBOLEDA ROOM#: 104-1DATE OF : 1960 MR#: [id number] DATE: 10/10/19 OF SERVICE: 10/14/19UBJECTIVE: Patient was seen and examined this morning. He was admitted for pneumonia. COVID-19was sent and we are waiting for COVID results. Doing better. He had a temperature of 99 this morning.Denies having difficulty breathing, cough or congestion at this time. CPK is increasing from yesterday. Todayit went up to 1000. It was 900 yesterday. He came in and it was 1400. It had trended down with the IV fluids.OBJECTIVE:VITAL SIGNS: Temperature is 99.2. Pulse 103. Respiratory rate is 18. Blood pressure is 115/99. 95% onroom air.HEART: S1, S2.LUNGS: Good air entry bilaterally. Some coarse sounds at the left lower base.ABDOMEN: Soft, positive bowel sounds. No rebound or guarding.EXTREMITIES: No pitting edema appreciated.LABORATORY DATA: WBC is 7. H&H is 12.1/36.2 with platelets of 251. Sodium is 137,potassium is 3.8, chloride is 104, glucose is 118, BUN is 5, creatinine is 0.6. Calcium is 8.3. AST is 27.ALT is 21. CPK is 1188. GFR is greater than 60. Chest x-ray is pending.ASSESSMENT/PLAN:1. Pneumonia. Patient is receiving azithromycin and Rocephin at this time. Will get a chest x-ray. If resolved, patient probably will be discharged. If not, will change the therapy.2. Congenital cerebral palsy, stable. No changes at this time. Behavior controlled.3. Seizures. Patient has not had any seizures for a long time. Continue to have his anti-epilepsy medications.4. Elevated CPK. The level is in the 1000 range. I am not sure if it is chronic. He is mostly bed bound. We will continue IV fluid at this time. We will recheck it tomorrow if he stays.5. DVT prophylaxis. Continue Lovenox 40 mg once a day.6. As for PPI prophylaxis, continue pantoprazole.7. Discharge planning: Home when stable.DD: Eligio Villaseñor MD 10/14/19 13:29DT: ADELSO 10/15/19 00:06DS: Eligio Villaseñor MD 10/27/19 08:43 1 Name Value Range Interpretation Code Description Data Trini rce(s) Supporting Document(s) ID Date Data Source [id number] 10/26/2019 10:00:00 AM EDT [facility] ([facility] ) Name Value Range Interpretation Code Description Data Trini rce(s) Supporting Document(s) Phenytoin [Mass/volume] in Serum or Plasma 15.1 UG/ML 10.0-20.0 [facility] ([facility], ) <content>note:<nlbl:demographic_changed> </content>
<content></content> ID Date Data Source [id number] 10/17/2019 02:00:00 [place] [address] PHONE: [phone] FAX: [phone] Name .................. : ANAI ARBOLEDA Acct Number.................. : [id number] ROOM. ................. : 104-1 MR Number ................... : [id number] Stay type ............. : I/P Discharge Date......... ... : Admit Date ......... : 10/10/19 Admit Phys .................... : ISAEL HERNÁNDEZ Date of ....... : 1960 Family Phys ................... : RU VANEGAS Phone .................. : [phone] Age ................................ : 58 Film# .................. .:[id number] Sex ................................. : M Unsigned transcriptions are preliminary reports and do not represent a medical or legal document CHEST PORTABLE [id number] COMPLETE:10/14/19 10:22 54573 (REASON FOR CHEST: PNEUM ONIA PORTABLE CHEST X-RAY: INDICATION: Pneumonia. FINDINGS: Examination reveals prominence of the pulmonary vasculature. There is increased density identified at the left lung base, for which an underlying infiltrate is not excluded. The osseous structures demonstrate degenerative changes. IMPRESSION: Suspicion for a left basilar infiltrate. [facility]. Examination dictated by FREIDA Mcneal. Examination was reviewed with Eliud Bowman MD, radiologist at the time of this dictation. Electronically Reviewed and Signed By Eliud Bowman MD , 10/17/19 14:00, KGG Transcribe Initials: PENG , Transcribe Date: 10/14/19 14:24, Dictation Date: Copy for: 710 MED REC DISCHARGED Page 1 of 1 Name Value Range Interpretation Code Description Data Trini rce(s) Supporting Document(s) ID Date Data Source [id number] 10/14/2019 09:13:00 AM EDT [facility] Name Value Range Interpretation Code Description Data Trini rce(s) Supporting Document(s) Creatine kinase [Enzymatic activity/volume] in Serum or Plas ma 1188 U/L 30 - 170 H [facility] ID Date Data Source [id number] 10/14/2019 09:13:00 AM EDT [facility] Name Value Range Interpretation Code Description Data Trini rce(s) Supporting Document(s) COMPREHENSIVE METABOLIC PANEL [facility] COMPREHENSIVE METABOLIC PANEL Sodium [Moles/volume] in Serum or Plasma 137 mEq/L 134 - 153 [facility] Potassium [Moles/volume] in Serum or Plasma 3.8 mEq/L 3.6 - 5.0 [facility] Chloride [Moles/volume] in Serum or Plasma 104 mEq/L 98 - 107 [facility] Carbon dioxide, total [Moles/volume] in Serum or Plasma 20 MEQ/L 22 - 30 L [facility] Glucose [Mass/volume] in Serum or Plasma 118 MG/DL 65 - 110 H [facility] BUN 5 MG/DL 7 - [facility] Creatinine [Mass/volume] in Serum or Plasma 0.6 MG/DL 0.7 - 1.5 L [facility] BUN/CREAT 8 8 - 27 [facility] al Protein [Mass/volume] in Serum or Plasma 6.7 G/DL 6.3 - 8.2 [facility] Albumin [Mass/volume] in Serum or Plasma 3.6 G/DL 3.9 - 5.0 L [facility] Globulin [Mass/volume] in Serum by calculation 3.1 GM/DL 2.4 - 3.2 [facility] A/G RATIO 1.2 0.8 - 2.0 [facility] Calcium [Mass/volume] in Serum or Plasma 8.3 MG/DL 8.4 - 10.2 L [facility] Bilirubin.total [Mass/volume] in Serum or Plasma <0.7 MG/DL 0.2 - 1.3 [facility] Alkaline phosphatase [Enzymatic activity/volume] in Serum or Plasma 107 U/L 38 - 126 [facility] Aspartate aminotransferase [Enzymatic activity/volume] in Serum or Plasma 27 U/L 5 - 40 [facility] Alanine aminotransferase [Enzymatic activity/volume] in Seru m or Plasma 21 U/L 7 - 56 [facility] Anion gap 3 in Serum or Plasma 13.0 mmol/L 8.0 - 16.0 [facility] AGE 58 yrs [facility] al NON-AA GFR >60 mL/min [facility] ital AFR AMER GFR >60 mL/min [facility] Ho spital Male GFR In terprentation 20-49 yrs >60 mL/min Normal 50-59 yrs >56 mL/min Normal 60-69 yrs >49 mL/min Normal 70-79yrs >42 mL/min Normal 80 and above >35 mL/min Normal Female GFR Interpretation 20-39 yrs >60 mL/min Normal 40-49 yrs >58 mL/min Normal 50-59 yrs >51 mL/min Normal 60-69 yrs >45 mL/min Normal 70-79 yrs >39 mL/min Normal 80 and above >32 mL/min Normal ID Date Data Source [id number] 10/14/2019 08:59:00 AM EDT [facility] Name Value Range Interpretation Code Description Data Trini rce(s) Supporting Document(s) CBC W/AUTOMATED DIFF [facility] COMPLETE BLOOD COUNT Leukocytes [#/volume] in Blood by Automated count 7.0 10^3/uL 4.2 - 1 1.0 [facility] Erythrocytes [#/volume] in Blood by Automated count 4.16 10^6/uL 4. 50 - 6.30 L [facility] Hemoglobin [Mass/volume] in Blood 12.1 g/dL 14.0 - 16.0 L [facility] Hematocrit [Volume Fraction] of Blood by Automated count 36.2 % 4 1.0 - 51.0 L [facility] Erythrocyte mean corpuscular volume [Entitic volume] by Auto mated count 87.0 fL 80.0 - 94.0 [facility] Erythrocyte mean corpuscular hemoglobin [Entitic mass] by Automated count 29.1 pg 27.0 - 34.0 [facility] Erythrocyte mean corpuscular hemoglobin concentration [Mass/volume] by Automated count 33.4 g/dL 31.0 - 36.0 [facility] Erythrocyte distribution width [Ratio] by Automated count 13.8 % 11.5 - 14.8 [facility] Platelets [#/volume] in Blood by Automated count 251 10^3/uL 150 - 45 0 [facility] Platelet mean volume [Entitic volume] in Blood by Automated count 9.7 fL 7.4 - 10.4 [facility] Neutrophils/100 leukocytes in Blood by Automated count 59.4 % 37. 0 - 80.0 [facility] Lymphocytes/100 leukocytes in Blood by Manual count 22.9 % 25.0 - 40.0 L [facility] Monocytes/100 leukocytes in Blood by Automated count 12.1 % 3.0 - 8.0 H [facility] Eosinophils/100 leukocytes in Blood by Automated count 4.9 % 0.0 - 7.0 [facility] Basophils/100 leukocytes in Blood by Automated count 0.3 % 0.0 - 2.0 [facility] %IG 0.4 % 0.0 - 0.0 [facility] %NRBC 0.0 % 0.0 - 0.0 [facility] al Neutrophils [#/volume] in Blood by Automated count 4.13 10^3/uL 2.00 - 6.90 [facility] Lymphocytes [#/volume] in Blood by Automated count 1.59 10^3/uL 0.60 - 3.40 [facility] Monocytes [#/volume] in Blood by Automated count 0.84 10^3/uL 0.00 - 0.90 [facility] Eosinophils [#/volume] in Blood by Automated count 0.34 10^3/uL 0.00 - 0.70 [facility] Basophils [#/volume] in Blood by Automated count 0.02 10^3/uL 0.00 - 0.20 [facility] #IG 0.03 10^3/uL 0.00 - 0.10 [facility] ospital #NRBC 0.00 10^3/uL 0.00 - 0.00 [facility]ital MANUAL DIFF NOT INDICATED [facility] RBC MORPH NOT INDICATED [facility] spital ID Date Data Source [id number] 10/17/2019 11:14:00 AM EDT [facility] Name Value Range Interpretation Code Description Data Trini rce(s) Supporting Document(s) SARS-CoV-2, LORIE Not Detected Not Detected [facility] This test was developed and its performa nce characteristics determinedby [facility]. This test has not been FDA cleared orapproved. This test has been authorized by FDA under an Emergency UseAuthorization (EUA). This test is only authorized for the duration oftime the declaration that circumstances exist justifying theauthorization of the emergency use of in vitro diagnostic tests fordetection of SARS-CoV-2 virus and/or diagnosis of COVID-19 infectionunder section 564(b)(1) of the Act, 21 U.S.C. 360bbb-3(b)(1), unlessthe authorization is terminated or revoked sooner.When diagnostic testing is negative, the possibility of a falsenegative result should be considered in the context of a patient'srecent exposures and the presence of clinical signs and symptomsconsistent with COVID-19. An individual without symptoms of COVID-19and who is not shedding SARS-CoV-2 virus would expect to have anegative (not detected) result in this assay. ID Date Data Source [id number] 10/13/2019 07:35:00 AM EDT [facility] Name Value Range Interpretation Code Description Data Trini rce(s) Supporting Document(s) COMPREHENSIVE METABOLIC PANEL [facility] COMPREHENSIVE METABOLIC PANEL Sodium [Moles/volume] in Serum or Plasma 139 mEq/L 134 - 153 [facility] Potassium [Moles/volume] in Serum or Plasma 3.8 mEq/L 3.6 - 5.0 [facility] Chloride [Moles/volume] in Serum or Plasma 104 mEq/L 98 - 107 [facility] Carbon dioxide, total [Moles/volume] in Serum or Plasma 23 MEQ/L 22 - 30 [facility] Glucose [Mass/volume] in Serum or Plasma 96 MG/DL 65 - 110 [facility] BUN 6 MG/DL 7 - 21 L [facility] Creatinine [Mass/volume] in Serum or Plasma 0.6 MG/DL 0.7 - 1.5 L [facility] BUN/CREAT 10 8 - 27 [facility] [Mass/volume] in Serum or Plasma 6.7 G/DL 6.3 - 8.2 [facility] Albumin [Mass/volume] in Serum or Plasma 3.7 G/DL 3.9 - 5.0 L [facility] Globulin [Mass/volume] in Serum by calculation 3.0 GM/DL 2.4 - 3.2 [facility] A/G RATIO 1.2 0.8 - 2.0 [facility] Calcium [Mass/volume] in Serum or Plasma 8.3 MG/DL 8.4 - 10.2 L [facility] Bilirubin.total [Mass/volume] in Serum or Plasma <0.7 MG/DL 0.2 - 1.3 [facility] Alkaline phosphatase [Enzymatic activity/volume] in Serum or Plasma 99 U/L 38 - 126 [facility] Aspartate aminotransferase [Enzymatic activity/volume] in Serum or Plasma 26 U/L 5 - 40 [facility] Alanine aminotransferase [Enzymatic activity/volume] in Seru m or Plasma 19 U/L 7 - 56 [facility] Anion gap 3 in Serum or Plasma 12.0 mmol/L 8.0 - 16.0 [facility] AGE 58 yrs [facility] al NON-AA GFR >60 mL/min [facility] ital AFR AMER GFR >60 mL/min [facility] Male GFR In terprentation 20-49 yrs >60 mL/min Normal 50-59 yrs >56 mL/min Normal 60-69 yrs >49 mL/min Normal 70-79yrs >42 mL/min Normal 80 and above >35 mL/min Normal Female GFR Interpretation 20-39 yrs >60 mL/min Normal 40-49 yrs >58 mL/min Normal 50-59 yrs >51 mL/min Normal 60-69 yrs >45 mL/min Normal 70-79 yrs >39 mL/min Normal 80 and above >32 mL/min Normal ID Date Data Source [id number] 10/13/2019 07:35:00 AM EDT [facility] Name Value Range Interpretation Code Description Data Trini rce(s) Supporting Document(s) Creatine kinase [Enzymatic activity/volume] in Serum or Plasma 9 51 U/L 30 - 170 H [facility] ID Date Data Source [id number] 10/13/2019 07:18:00 AM EDT [facility] Name Value Range Interpretation Code Description Data Trini rce(s) Supporting Document(s) CBC W/AUTOMATED DIFF [facility] COMPLETE BLOOD COUNT Leukocytes [#/volume] in Blood by Automated count 6.8 10^3/uL 4.2 - 1 1.0 [facility] Erythrocytes [#/volume] in Blood by Automated count 4.02 10^6/uL 4. 50 - 6.30 L [facility] Hemoglobin [Mass/volume] in Blood 11.6 g/dL 14.0 - 16.0 L [facility] Hematocrit [Volume Fraction] of Blood by Automated count 34.6 % 4 1.0 - 51.0 L [facility] Erythrocyte mean corpuscular volume [Entitic volume] by Auto mated count 86.1 fL 80.0 - 94.0 [facility] Erythrocyte mean corpuscular hemoglobin [Entitic mass] by Automated count 28.9 pg 27.0 - 34.0 [facility] Erythrocyte mean corpuscular hemoglobin concentration [Mass/volume] by Automated count 33.5 g/dL 31.0 - 36.0 [facility] Erythrocyte distribution width [Ratio] by Automated count 13.3 % 11.5 - 14.8 [facility] Platelets [#/volume] in Blood by Automated count 229 10^3/uL 150 - 45 0 [facility] Platelet mean volume [Entitic volume] in Blood by Automated count 9.7 fL 7.4 - 10.4 [facility] Neutrophils/100 leukocytes in Blood by Automated count 50.8 % 37. 0 - 80.0 [facility] Lymphocytes/100 leukocytes in Blood by Manual count 27.5 % 25.0 - 40.0 [facility] Monocytes/100 leukocytes in Blood by Automated count 16.3 % 3.0 - 8.0 H [facility] Eosinophils/100 leukocytes in Blood by Automated count 4.9 % 0.0 - 7.0 [facility] Basophils/100 leukocytes in Blood by Automated count 0.4 % 0.0 - 2.0 [facility] %IG 0.1 % 0.0 - 0.0 [facility] %NRBC 0.0 % 0.0 - 0.0 [facility] al Neutrophils [#/volume] in Blood by Automated count 3.45 10^3/uL 2.00 - 6.90 [facility] Lymphocytes [#/volume] in Blood by Automated count 1.87 10^3/uL 0.60 - 3.40 [facility] Monocytes [#/volume] in Blood by Automated count 1.11 10^3/uL 0.00 - 0.90 H [facility] Eosinophils [#/volume] in Blood by Automated count 0.33 10^3/uL 0.00 - 0.70 [facility] Basophils [#/volume] in Blood by Automated count 0.03 10^3/uL 0.00 - 0.20 [facility] #IG 0.01 10^3/uL 0.00 - 0.10 [facility] #NRBC 0.00 10^3/uL 0.00 - 0.00 [facility] ospital MANUAL DIFF SEE BELOW [facility] ital Segmented neutrophils/100 leukocytes in Blood by Manual count 53 % 37 - 80 [facility] %LYMPH 29 % 25 - 40 [facility] %MONO 13 % 3 - 8 H [facility] %EOS 5 % 0 - 7 [facility] RBC MORPH NOT INDICATED [facility] ID Date Data Source [id number] 10/12/2019 08:24:00 AM EDT [facility] Name Value Range Interpretation Code Description Data Trini rce(s) Supporting Document(s) CBC W/AUTOMATED DIFF [facility] COMPLETE BLOOD COUNT Leukocytes [#/volume] in Blood by Automated count 7.9 10^3/uL 4.2 - 1 1.0 [facility] Erythrocytes [#/volume] in Blood by Automated count 3.74 10^6/uL 4. 50 - 6.30 L [facility] Hemoglobin [Mass/volume] in Blood 10.7 g/dL 14.0 - 16.0 L [facility] Hematocrit [Volume Fraction] of Blood by Automated count 32.4 % 4 1.0 - 51.0 L [facility] Erythrocyte mean corpuscular volume [Entitic volume] by Auto mated count 86.6 fL 80.0 - 94.0 [facility] Erythrocyte mean corpuscular hemoglobin [Entitic mass] by Automated count 28.6 pg 27.0 - 34.0 [facility] Erythrocyte mean corpuscular hemoglobin concentration [Mass/volume] by Automated count 33.0 g/dL 31.0 - 36.0 [facility] Erythrocyte distribution width [Ratio] by Automated count 13.7 % 11.5 - 14.8 [facility] Platelets [#/volume] in Blood by Automated count 207 10^3/uL 150 - 45 0 [facility] Platelet mean volume [Entitic volume] in Blood by Automated count 10.0 fL 7.4 - 10.4 [facility] Neutrophils/100 leukocytes in Blood by Automated count 53.2 % 37. 0 - 80.0 [facility] Lymphocytes/100 leukocytes in Blood by Manual count 28.8 % 25.0 - 40.0 [facility] Monocytes/100 leukocytes in Blood by Automated count 14.8 % 3.0 - 8.0 H [facility] Eosinophils/100 leukocytes in Blood by Automated count 2.8 % 0.0 - 7.0 [facility] 0.3 %IG 0.1 % 0.0 - 0.0 [facility] %NRBC 0.0 % 0.0 - 0.0 [facility] al Neutrophils [#/volume] in Blood by Automated count 4.23 10^3/uL 2.00 - 6.90 [facility] Lymphocytes [#/volume] in Blood by Automated count 2.28 10^3/uL 0.60 - 3.40 [facility] Monocytes [#/volume] in Blood by Automated count 1.17 10^3/uL 0.00 - 0.90 H [facility] Eosinophils [#/volume] in Blood by Automated count 0.22 10^3/uL 0.00 - 0.70 [facility] Basophils [#/volume] in Blood by Automated count 0.02 10^3/uL 0.00 - 0.20 [facility] #IG 0.01 10^3/uL 0.00 - 0.10 [facility] #NRBC 0.00 10^3/uL 0.00 - 0.00 [facility] ospital MANUAL DIFF SEE BELOW [facility] ital Segmented neutrophils/100 leukocytes in Blood by Manual count 51 % 37 - 80 [facility] %LYMPH 39 % 25 - 40 [facility] al %MONO 5 % 3 - 8 [facility] al %EOS 2 % 0 - 7 [facility] al 3 RBC MORPH NOT INDICATED [facility] spital ID Date Data Source [id number] 10/12/2019 08:15:00 AM EDT [facility] Name Value Range Interpretation Code Description Data Trini rce(s) Supporting Document(s) BASIC METABOLIC PANEL [facility] BASIC METABOLIC PANEL Sodium [Moles/volume] in Serum or Plasma 139 mEq/L 134 - 153 [facility] Potassium [Moles/volume] in Serum or Plasma 3.8 mEq/L 3.6 - 5.0 [facility] Chloride [Moles/volume] in Serum or Plasma 106 mEq/L 98 - 107 [facility] Carbon dioxide, total [Moles/volume] in Serum or Plasma 23 MEQ/L 22 - 30 [facility] Glucose [Mass/volume] in Serum or Plasma 94 MG/DL 65 - 110 [facility] BUN 7 MG/DL 7 - 21 [facility] Creatinine [Mass/volume] in Serum or Plasma 0.6 MG/DL 0.7 - 1.5 L [facility] BUN/CREAT 12 8 - 27 [facility] Calcium [Mass/volume] in Serum or Plasma 8.4 MG/DL 8.4 - 10.2 [facility] Anion gap 3 in Serum or Plasma 10.0 mmol/L 8.0 - 16.0 [facility] AGE 58 yrs [facility] al AFR AMER GFR >60 mL/min [facility] NON-AA GFR >60 mL/min [facility] ital Male GFR Inter prentation 20-49 yrs >60 mL/min Normal 50-59 yrs >56 mL/min Normal 60-69 yrs >49 mL/min Normal 70-79yrs >42 mL/min Normal 80 and above >35 mL/min Normal Female GFR Interpretation 20-39 yrs >60 mL/min Normal 40-49 yrs >58 mL/min Normal 50-59 yrs >51 mL/min Normal 60-69 yrs >45 mL/min Normal 70-79 yrs >39 mL/min Normal 80 and above >32 mL/min Normal ID Date Data Source [id number] 10/12/2019 08:15:00 AM EDT [facility] Name Value Range Interpretation Code Description Data Trini rce(s) Supporting Document(s) Creatine kinase [Enzymatic activity/volume] in Serum or Plasma 7 98 U/L 30 - 170 H [facility] ID Date Data Source [id number] 10/11/2019 03:46:00 PM EDT [facility] Name Value Range Interpretation Code Description Data Trini rce(s) Supporting Document(s) OCCULT BLOOD NEGATIVE NORMAL: NEGATIVE [facility] OCCULT BLOOD REENTER NEGATIVE NORMAL: NEGATIVE [facility] { HEMOCCULT LOT # [id number] ){ LOT EXP DATE 05 ){ PROCEDURAL CONTROL POS/NEG VALID ) ID Date Data Source [id number] 10/11/2019 03:44:00 PM EDT [facility] Name Value Range Interpretation Code Description Data Trini rce(s) Supporting Document(s) OCCULT BLOOD DIAGNOSTIC 3 SLIDES [facility] SPOKE WITH TABATHA. WILL REORDER{ DA TE COLLECTED{ DATE COLLECTED{ DATE COLLECTED{ HEMOCCULT LOT # ){ LOT EXP DATE ) CEDURAL CONTROL PO /NEG [facility] ID Date Data Source [id number] 10/11/2019 10:25:00 AM T [facility] Name Value Range Interpretation Code Description Data Trini rce(s) Supporting Document(s) URINALYSIS [facility] alejandro URINALYSIS SOURCE R [facility] COLOR yellow NORMAL: Yellow [facility] CLARITY clear NORMAL: Clear [facility] Specific gravity of Urine by Test strip 1.015 1.001 - 1.030 [facility] pH 6 5 - 9 [facility] al Glucose [Mass/volume] in Urine by Test strip NORM NORMAL: Negat [facility] Bilirubin.total [Presence] in Urine by Test strip NEG NORMAL: Negative [facility] Ketones [Presence] in Urine by Test strip NEG NORMAL: Negative [facility] Protein [Mass/volume] in Urine by Test strip 15 NORMAL: Negat [facility] Nitrite [Presence] in Urine by Test strip NEG NORMAL: Negative [facility] BLOOD 150 NORMAL: Negative [facility] Leukocyte esterase [Presence] in Urine by Test strip 500 JIMMY L: Negative [facility] Urobilinogen [Mass/volume] in Urine by Test strip NOR less arthur n 1.0 mg/dL [facility] MICROSCOPIC See Below [facility] ital WBC 5 - 7 NORMAL: NONE SEEN [facility] Erythrocytes [#/volume] in Urine by Test strip 1 - 3 NORMAL: NON E SEEN [facility] Bacteria [Presence] in Urine sediment by Light microscopy Tr colt NORMAL: NONE SEEN [facility] Mucus [Presence] in Urine sediment by Light microscopy Trace NORMAL: NONE SEEN [facility] ID Date Data Source [id number] 10/11/2019 07:22:00 AM EDT [facility] Name Value Range Interpretation Code Description Data Trini rce(s) Supporting Document(s) CBC W/AUTOMATED DIFF [facility] COMPLETE BLOOD COUNT Leukocytes [#/volume] in Blood by Automated count 9.3 10^3/uL 4.2 - 1 1.0 [facility] Erythrocytes [#/volume] in Blood by Automated count 4.00 10^6/uL 4. 50 - 6.30 L [facility] Hemoglobin [Mass/volume] in Blood 11.6 g/dL 14.0 - 16.0 L [facility] Hematocrit [Volume Fraction] of Blood by Automated count 35.0 % 4 1.0 - 51.0 L [facility] Erythrocyte mean corpuscular volume [Entitic volume] by Auto mated count 87.5 fL 80.0 - 94.0 [facility] Erythrocyte mean corpuscular hemoglobin [Entitic mass] by Automated count 29.0 pg 27.0 - 34.0 [facility] Erythrocyte mean corpuscular hemoglobin concentration [Mass/volume] by Automated count 33.1 g/dL 31.0 - 36.0 [facility] Erythrocyte distribution width [Ratio] by Automated count 13.8 % 11.5 - 14.8 [facility] Platelets [#/volume] in Blood by Automated count 254 10^3/uL 150 - 45 0 [facility] Platelet mean volume [Entitic volume] in Blood by Automated count 10.6 fL 7.4 - 10.4 H [facility] Neutrophils/100 leukocytes in Blood by Automated count 60.7 % 37. 0 - 80.0 [facility] Lymphocytes/100 leukocytes in Blood by Manual count 22.2 % 25.0 - 40.0 L [facility] Monocytes/100 leukocytes in Blood by Automated count 15.6 % 3.0 - 8.0 H [facility] Eosinophils/100 leukocytes in Blood by Automated count 1.1 % 0.0 - 7.0 [facility] Basophils/100 leukocytes in Blood by Automated count 0.2 % 0.0 - 2.0 [facility] %IG 0.2 % 0.0 - 0.0 H [facility] %NRBC 0.0 % 0.0 - 0.0 [facility] al Neutrophils [#/volume] in Blood by Automated count 5.66 10^3/uL 2.00 - 6.90 [facility] Lymphocytes [#/volume] in Blood by Automated count 2.07 10^3/uL 0.60 - 3.40 [facility] Monocytes [#/volume] in Blood by Automated count 1.45 10^3/uL 0.00 - 0.90 H [facility] Eosinophils [#/volume] in Blood by Automated count 0.10 10^3/uL 0.00 - 0.70 [facility] Basophils [#/volume] in Blood by Automated count 0.02 10^3/uL 0.00 - 0.20 [facility] #IG 0.02 10^3/uL 0.00 - 0.10 [facility] ospital #NRBC 0.00 10^3/uL 0.00 - 0.00 [facility] ospital MANUAL DIFF SEE BELOW [facility] ital Segmented neutrophils/100 leukocytes in Blood by Manual count 76 % 37 - 80 [facility] %LYMPH 12 % 25 - 40 L [facility] %MONO 10 % 3 - 8 H [facility] %EOS 2 % 0 - 7 [facility] RBC MORPH NOT INDICATED [facility] ID Date Data Source [id number] 10/11/2019 06:36:00 AM EDT [facility] Name Value Range Interpretation Code Description Data Trini rce(s) Supporting Document(s) Creatine kinase [Enzymatic activity/volume] in Serum or Plas ma 1145 U/L 30 - 170 H [facility] ID Date Data Source [id number] 10/11/2019 06:36:00 AM EDT [facility] Name Value Range Interpretation Code Description Data Trini rce(s) Supporting Document(s) BASIC METABOLIC PANEL [facility] BASIC METABOLIC PANEL Sodium [Moles/volume] in Serum or Plasma 140 mEq/L 134 - 153 [facility] Potassium [Moles/volume] in Serum or Plasma 4.0 mEq/L 3.6 - 5.0 [facility] Chloride [Moles/volume] in Serum or Plasma 104 mEq/L 98 - 107 [facility] Carbon dioxide, total [Moles/volume] in Serum or Plasma 24 MEQ/L 22 - 30 [facility] Glucose [Mass/volume] in Serum or Plasma 89 MG/DL 65 - 110 [facility] BUN 8 MG/DL 7 - 21 [facility] Creatinine [Mass/volume] in Serum or Plasma 0.7 MG/DL 0.7 - 1.5 [facility] BUN/CREAT 11 8 - 27 [facility] Calcium [Mass/volume] in Serum or Plasma 8.8 MG/DL 8.4 - 10.2 [facility] Anion gap 3 in Serum or Plasma 12.0 mmol/L 8.0 - 16.0 [facility] AGE 58 yrs [facility] al AFR AMER GFR >60 mL/min [facility] NON-AA GFR >60 mL/min [facility] ital Male GFR Inter prentation 20-49 yrs >60 mL/min Normal 50-59 yrs >56 mL/min Normal 60-69 yrs >49 mL/min Normal 70-79yrs >42 mL/min Normal 80 and above >35 mL/min Normal Female GFR Interpretation 20-39 yrs >60 mL/min Normal 40-49 yrs >58 mL/min Normal 50-59 yrs >51 mL/min Normal 60-69 yrs >45 mL/min Normal 70-79 yrs >39 mL/min Normal 80 and above >32 mL/min Normal ID Date Data Source [id number] 10/09/2019 07:15:00 PM EDT [facility] 1 OrderSheet [facility] Emergency Department [address] [place] [address] Phone #: ext- [phone] 10/09/2019 19:00 Patient: NKECHI OSPINA Sex: M : 1960 Age: 58yWEIGHT:66.2 kg (M) HEIGHT:64 inches (E) BMI:25.1ALLERGIES: NoneCHIEF COMPLAINT: vomiting, abdominal cramps, nauseaDIAGNOSIS: Urinary tract infectious disease, PneumoniaLAB ORDERSOrder Description Priority Entered Acknowledged InitialedUrinalysis (Clean STAT 19:30 10/09/2019 22:35 Joana,Catch) Reese Laughlin R.N. Physician;Troponin-T STAT 19:30 10/09/2019 19:32 Reese Fortune R.N. Physician;BNP STAT 19:30 10/09/2019 19:32 Reese Fortune R.N. Physician;CBC w Diff STAT 19:30 10/09/2019 19:32 Reese Fortune R.N. Physician;CMP STAT 19:30 10/09/2019 19:32 Reese Fortune R.N. Physician;CPK STAT 19:30 10/09/2019 19:32 Reese Fortune R.N. Physician;D-Dimer STAT 19:30 10/09/2019 19:32 Reese Fortune R.N. Physician;Lactic Acid STAT 19:30 10/09/2019 19:32 Reese Fortune R.N. Physician;Lipase STAT 19:30 10/09/2019 19:32 Reese Fortune R.N. Physician;Blood Culture STAT 19:30 10/09/2019 19:32 Devika,q10m X2 (Sched Reese Collado R.N.19:30 10/09/2019) Physician;Blood Culture STAT 19:30 10/09/2019 19:32 Devika, 2 OrderSheet [facility] Emergency Department [address] [place] [address] Phone #: ext- [phone] 10/09/2019 19:00 Patient: NKECHI OSPINA Sex: M : 1960 Age: 14nl97u X2 (Sched Reese Collado R.N.19:40 10/09/2019) Physician;DIAGNOSTIC STUDY ORDERSOrder Description Priority Entered Acknowledged InitialedCT Head W/O Cont STAT 19:30 10/09/2019 19:33 Devika,(Oxygen?(No)) Reese Collado R.N. Physician; Reason for Study: Head Injury, Head Pain, HeadacheCT Chest W/O Cont STAT 19:30 10/09/2019 19:33 Devika,(Oxygen?(No)) Reese Collado R.N. Physician; Reason for Study: Cough, FeverCT ABD PEL W/O STAT 19:30 10/09/2019 19:33 Sorbdacia,Oral W/O IV Reese Collado R.N.Contrast Physician;(Oxygen?(No))(IV?(Yes)) Reason for Study: Abdominal Pain, VomitingMEDICATION/IV/DRIP/FLUID ORDERSOrder Description Priority Entered Acknowledged InitialedIV NS : Bolus 1000 19:31 10/09/2019 19:54 Devika,mL, then 125 mL/hr Reese Collado R.N.(can be titrated per Physician;additionalphysicianinstruction)Zofran 4 mg IVP X 1 19:31 10/09/2019 19:53 Devika,dose: 4 mg (NOW Reese Collado R.N.x1) Physician;Rocephin 22:23 10/09/2019 22:43 Joana,(1gm/50mL) IVPB Reese Laughlin R.N.1000 mg with Physician;Dextrose 50 mlspike bag (D5W)Protonix IVPB 40 22:24 10/09/2019 23:38 Joana,mg with Dextrose Reese Laughlin R.N.100 ml spike bag Physician;(D5W)GENERAL ORDERSOrder Description Priority Entered Acknowledged Initialed 3 OrderSheet [facility] Emergency Department [address] [place] [address] Phone #: ext- [phone] 10/09/2019 19:00 Patient: NKECHI OSPINA Sex: M : 1960 Age: 58yAccucheck 19:31 10/09/2019 20:11 Reese Fortune R.N. Physician;EKG 19:31 10/09/2019 20:11 Reese Fortune R.N. Physician;Pulse oximeter 19:31 10/09/2019 19:33 Devika,(Spot Check) Reese Collado R.N. Physician;Saline Lock 19:31 10/09/2019 19:48 Reese Fortune R.N. Physician;Oxygen titrate to 19:31 10/09/2019 19:33 Devika,92% Reese Collado R.N. Physician;Franks Catheter 22:22 10/09/2019 23:21 Ale Kilo Reese Bronson R.N. Physician;[Electronically signed by Qian Bernard R.N. (02:19 10/10/2019)][Electronically signed by Reese Landers Physician (05:43 10/10/2019)][Electronically locked by Qian Bernard R.N. (02:19 10/10/2019)] Name Value Range Interpretation Code Description Data Trini rce(s) Supporting Document(s) ID Date Data Source [id number] 10/09/2019 07:15:00 PM EDT [facility] 1 Medication Reconciliation Report [facility] Emergency Department [address] [place] [address] Phone #: ext- [phone] 10/09/2019 19:00 Patient: NKECHI OSPINA Sex: M : 1960 Age: 58yWeight: 66.2 kgHeight/Length: 64 in.BMI: 25.1ALLERGIES: NoneThe patient's Home Medications are listed below:THE FOLLOWING MEDICATIONS NEED TO BE RECONCILED: Aspirin Oral (81 mg), daily Baclofen 10mg, daily Calcium 500 +D Oral, daily Chlorthalidone Oral (25 mg), daily Claritin Oral 10 mg, daily Dilantin Oral 100 mg, 2x a day Ditropan XL Oral 5 mg, daily Keppra Oral 750 mg, 2x a day Lansoprazole Oral 30 mg, daily MiraLax Oral, daily Norvasc Oral 2.5 mg, daily PHENobarbital Oral (32.4 mg), 3x a day Senna Oral (8.6 mg) 2 tablets, at bedtime Valium Oral 5 mg, prnThe source(s) of the original Home Medication information: 2 Medication Reconciliation Report [facility] Emergency Department [address] [place] [address] Phone #: ext- [phone] 10/09/2019 19:00 Patient: NKECHI OSPINA Sex: M : 1960 Age: 58ypatient's fdc recordThe following Medications were given to the patient in the Emergency Department:Zofran [IVP] IVP 4 mg, administered: 10/09/2019 7:53:00 PMIV NS IV Fluids bolus 0, then 1000 mL/hr, administered: 10/09/2019 7:54:00 PMIV NS IV Fluids bolus 0, then 125 mL/hr, administered: 10/09/2019 9:24:00 PMROCEPHIN (1GM/50ML) [IVPB] IVPB bolus 0, then 1 gm 100 mL/hr, administered: 10/09/2019 10:43:00 PMProtonix [IVPB] IVPB bolus 0, then 40 mg 200 mL/hr, administered: 10/09/2019 11:38:00 PMThe following Medications were prescribed to the patient:None. Name Value Range Interpretation Code Description Data Trini rce(s) Supporting Document(s) ID Date Data Source [id number] 10/09/2019 07:15:00 PM EDT [facility] 1 Medication Administration Record [facility] Emergency Department [address] [place] [address] Phone #: ext- [phone] 10/09/2019 19:00 Patient: NKECHI OSPINA Sex: M : 1960 Age: 58yWeight: 66.2 kgHeight/Length: 64 inBMI: 25.1ALLERGIES: None Date/Time Medication Administered Medication OrderedStart IV NS IV NS : Bolus 1000 mL, then 88689:54 10/09/2019 Dose: IV Fluids mL/hr (can be titrated perSTobias nieves, R.N. Rate: 1000 mL/hr over 1 hour(s) additional physician instruction)---- Dispensed: 1000 mL bagStop Site: #1 left AC21:21 10/09/2019SoTobias iglesias, R.N.Start IV NS IV NS : Bolus 1000 mL, then 45890:24 10/09/2019 Dose: IV Fluids mL/hr (can be titrated perSorbTobias pederson, R.N. Rate: 125 mL/hr over 8 hour(s) additional physician instruction)---- Dispensed: 1000 mL bagStop Site: #1 left AC01:00 10/10/2019Qian Bernard R.N.Given ZOFRAN [IVP] (ONDANSETRON HCL) Zofran 4 mg IVP X 1 dose: 4 mg19:53 10/09/2019 Dose: 4 mg IVP (NOW x1)Tobias Fortune R.N. Site: #1 left ACStart ROCEPHIN (1GM/50ML) [IVPB] Rocephin (1gm/50mL) IVPB 317241:43 10/09/2019 (CEFTRIAXONE SODIUM) mg with Dextrose 50 ml spike bagQian Bernard R.N. Dose: 1 gm IVPB (D5W)---- Rate: 100 mL/hrStop Dispensed: 50 mL bag23:37 10/09/2019 Site: #1 left Qian Prado R.N.Start PROTONIX [IVPB] (PANTOPRAZOLE Protonix IVPB 40 mg with23:38 10/09/2019 SODIUM) Dextrose 100 ml spike bag (D5W)Qian Bernard R.N. Dose: 40 mg IVPB---- Rate: 200 mL/hrStop Dispensed: 100 mL bag01:22 10/10/2019 Site: #1 left Qian Prado R.N. Name Value Range Interpretation Code Description Data Trini rce(s) Supporting Document(s) ID Date Data Source [id number] 10/09/2019 07:15:00 PM EDT [facility] 1 General Instructions [facility] Emergency Department [address] [place] [address] Phone #: ext- [phone] 10/09/2019 19:00 Patient: NKECHI OSPINA Sex: M : 1960 Age: 58yBronchopneumonia. No hypoxemia or respiratory failure.Acute urinary tract infection with cystitis. No hematuria. Not associated with indwelling catheter orobstruction.(Electronically signed by Reese Landers, Physician 10/10/2019 05:43) Name Value Range Interpretation Code Description Data Trini rce(s) Supporting Document(s) ID Date Data Source [id number] 10/09/2019 07:15:00 PM EDT [facility] 1 Clinical Report - Nurses [facility] Emergency Department [address] [place] [address] Phone #: [phone] ext- [phone] 10/09/2019 19:00 Patient: NKECHI OSPINA Sex: M : 1960 Age: 58yTRIAGEArrived by private vehicle. Historian: medical reviewer. Accompanied by medical reviewer. [facility] vomiting x1 and lethargy that started today. medical reviewer says emesis was black).Triage time: 19:06 10/09/2019. Acuity: LEVEL 3.Chief Complaint: FEVER and "NOT FEELING WELL".Alert. No acute distress.This started today.Treatment SULFUR BURNER:Took Tylenol. (at 5pm).SEPSIS SCREEN: SIRS Screen negative. Sepsis Screen negative. No suspected or confirmed signs ofinfection present. --19:10/09/19 Lakisha Harris, DEREJE19:06 10/09/19. BP: 137/102. MAP: 113. HR: 114. RR: 18. O2 saturation: 98%. Temp: 99.3 F. Pain levelnow unable to obtain due to patient condition: unce rtain. --19:21 10/09/19 Lakisha Harris, RN.Weight: 66.2 kg measured. Height/Length: 64 inches Estimated. BMI: 25.1. --19:09 10/09/19 Lakisha Harris,RN.MedicationsSenna Oral (Tablet 8.6 mg) 2 tablets, at bedtime. --19:12 10/09/19 Lakisha Harris RN PHENobarbital Oral (Tablet 32.4 mg), 3x a day. --19:13 10/09/19 Lakisha Harris RN Ditropan XL Oral 5 mg, daily. --19:13 10/09/19 Lakisha Harris RN Keppra Oral 750 mg, 2x a day. --19:13 10/09/19 Lakisha Harris RN Claritin Oral 10 mg, daily. --19:13 10/09/19 Lakisha Harris RN Aspirin Oral (Tablet Chewable 81 mg), daily. --19:14 10/09/19 Lakisha Harris RN Calcium 500 +D Oral, daily. --19:14 10/09/19 Lakisha Harris RN Dilantin Oral 100 mg, 2x a day. --19:14 10/09/19 Lakisha Harris RN Valium Oral 5 mg, as needed. --19:15 10/09/19 Lakisha Harris RN Chlorthalidone Oral (Tablet 25 mg), daily. --19:15 10/09/19 Lakisha Harris RN Norvasc Oral 2.5 mg, daily. --19:15 10/09/19 Lakisha Harris RN Lansoprazole Oral 30 mg, daily. --19:15 10/09/19 Lakisha Harris RN MiraLax Oral, daily. --19:16 10/09/19 Lakisha Harris RN Baclofen 10mg, daily. --19:16 10/09/19 Lakisha Harris RN.AllergiesNone. --19:12 10/09/19 Lakisha Harris RN. 2 Clinical Report - Nurses [facility] Emergency Department [address] [place] [address] Phone #: ext- [phone] 10/09/2019 19:00 Patient: NKECHI OSPINA Sex: M : 1960 Age: 58yPROBLEMS:MRSA.Urinary Incontinence.Osteoporosis.Legal blindness.Cerebral Palsy.Constipation.Seizure Disorder.Hypertension.Intellectual functioning disability. --19:10/09/19 Lakisha Harris RN.Medication/allergy information source: the patient's fdc record. --19:10/09/19 Lakisha aHrris RN.ADDITIONAL SURGERIES:no known surgeries.HistorySOCIAL HX: Never smoker. No alcohol use or drug use. No recent travel. No known contact with a sickindividual. The patient was offered HIV testing but declined and hepatitis C testing but declined. Thepatient has not traveled outside the [place]Infectious disease exposure: No infectious disease exposure.SELF HARM ASSESSMENT: Self harm assessment deferred due to patient condition.ABUSE ASSESSMENT: No report of abuse.NUTRITIONAL RISK ASSESSMENT: The nutritional risk assessment revealed no deficiencies.FALL RISK ASSESSMENT: Fall risk assessment completed. Risk factors identified include patientimpairment of cognition. Fall interventions initiated. Patient placed on stretcher. Side rails up x2. Bed in lowposition. Brakes on.FUNCTIONAL ASSESSMENT: Functional assessment performed: requires total care with the activities ofdaily living; communication barrier present; cognitive impairment- intellectual disability. The patient is underphysician care for the patient functional impairment.LEARNING NEEDS ASSESSMENT: A learning needs assessment was performed. Factors affecting thepatient's ability to learn include cognitive limitations.SKIN INTEGRITY ASSESSMENT: Skin integrity risk assessment completed. No skin integrity riskidentified. --19:10/09/19 Lakisha Hraris RN.PHYSICAL ASSESSMENT 3 Clinical Report - Nurses [facility] Emergency Department [address] [place] [address] Phone #: ext- [phone] 10/09/2019 19:00 Patient: NKECHI OSPINA Sex: M : 1960 Age: [age] 19:31 10/09/19. To room via wheelchair. GENERAL / NEURO / PSYCH: Alert. Oriented X 4. Appears in no acute distress. HEENT: Mucous membranes are pink. RESPIRATORY: Respirations not labored. Chest nontender. Breath sounds within normal limits. CVS: Capillary refill less than 2 seconds. Pulses within normal limits. GI / : Abdomen soft and nontender and normal bowel sounds. SKIN: Skin intact. Skin is warm and dry. Normal skin turgor. --19:32 10/09/19 Tobias Fortune R.N.NURSING PROGRESS NOTESReassurance given. Two patient identifiers checked. Bed placed in lowest position. Brakes of bed on.Patient ready for evaluation. --19:21 10/09/19 Lakisha Harris, RN 19:48 10/09/2019 Site #1 started via IV in the left antecubital space with an 20g angiocath, with aseptic technique and good blood return; two attempts. Blood drawn: rainbow set, blood bank tube and cultures x2. Labeled in the presence of the patient and sent to the lab. Saline lock flushed with 10 mL saline. --19:48 10/09/19 Tobias Fortune R.N. 19: 53 10/09/2019 Zofran (Ondansetron HCl) IVP 4 mg given over 2 minute(s) via site #1. Allergies verified and confirmed 5 rights. IV patency established. IV site checked: no pain, redness, or swelling. IV flushed thoroughly pre- and post- medication administration. IVP given by RN. Information reviewed with patient and family including reason for taking this medication, signs of allergic reaction and precautions. Verbalizes understanding. --19:53 10/09/19 Tobias Fortune R.N. 19:54 10/09/2019 Started bag #1 1000 mL IV Fluids IV NS; at 1000 mL/hr over 1 hour(s) via site #1 via IV pump. Allergies verified and confirmed 5 rights. IV patency established. IV site checked: no pain, redness, or swelling. IV flushed thoroughly pre- and post-medication administration. Information reviewed with patient including reason for taking this medication, signs of allergic reaction and precautions. Verbalizes understanding. --19:54 10/09/19 Tobias Fortune R.N. 20:07 10/09/19. ( blood sugar = 120. md aware). --20:07 09/17 05/05 Tobias Fortune R.N. 20:19 10/09/19. Patient transported to CT by stretcher with nurse and hvac r tech. --20:29 10/09/19 Tobias Fortune R.N. 20:36 10/09/19. Patient returned from CT by stretcher with hvac r tech. --20:51 10/09/19 Tobias Fortune R.N. Critical value relayed by (21:17 10/09/2019). Critical value received by [facility]. Lactate level: 2.2. Critical value read back. ED physician notifed of critical value. Orders were not received. --21:17 10/09/19 Ale Bronson R.N. 21:15 10/09/19. Reassurance given. Reassessment acuity: LEVEL 3. Reassessment after medication administered. No adverse reaction. Nausea gone now. He reports no complaints and he has had no adverse reaction. Overall patient status is improved- he states feels better. 4 Clinical Report - Nurses [facility] Emergency Department [address] [place] [address] Phone #: ext- [phone] 10/09/2019 19:00 Patient: NKECHI OSPINA Sex: M : 1960 Age: 58yGENERAL / NEURO / PSYCH: Alert. Oriented X 4.RESPIRATORY: No respiratory distress.GI / : Bowel sounds within normal limits.SKIN: Skin is warm and dry. Two patient identifiers checked. Call light placed in reach. Side rails up x2. Bed placed in lowest position. Brakes of bed on. --22:16 10/09/19 Tobias Fortune R.N.21:21 10/09/2019 IV Fluids IV NS via IV site #1 Discontinued: bag #1 completed. Total amount infused:1000 mL. IV patency established. IV site checked: no pain, redness, or swelling. IV flushed thoroughly.--21:21 10/09/19 Tobias Fortune R.N.21:24 10/09/2019 Started bag #2 1000 mL IV Fluids IV NS; at 125 mL/hr over 8 hour(s) via site #1 via IVpump. Allergies verified and confirmed 5 rights. IV patency established. IV site checked: no pain, redness,or swelling. IV flushed thoroughly pre- and post-medication administration. Information reviewed withpatient including reason for taking this medication, signs of allergic reaction and precautions. Verbalizesunderstanding. --21:24 10/09/19 Tobias Fortune R.N.22:16 10/09/19. Reassurance given. Reassessment acuity: LEVEL 3. The patient reports nocomplaints, he is calm and resting quietly and he has had no adverse reaction. Overall patient status isimproved- he states feels better.GENERAL / NEURO / PSYCH: Alert.RESPIRATORY: No respiratory distress. Breath sounds normal.SKIN: Skin is warm and dry. Two patient identifiers checked. Call light placed in reach. Side rails up x2. Bed placed in lowest position. Brakes of bed on. --22:16 10/09/19 Tobias Fortune RHumble.16 fr urinary catheter placed in ED. Reason for indwelling catheter: critical need to monitor intake andoutput. During procedure hand hygiene observed and sterile equipment and aseptic technique used.Return of 150 mL urine; attached to bedside drainage bag positioned below the bladder and secured withstabilization device. He tolerated procedure well. Patient ID band checked. Catheterized urine collected;sample sent to lab for urinalysis. --22:34 10/09/19 Qian Bernard R.N.Care transferred and report received. --22:34 10/09/19 Qian Bernard R.N.22:43 10/09/2019 Started 1 gm of ROCEPHIN (1GM/50ML) (cefTRIAXone Sodium) IVPB in bag #1 50 mL;at 100 mL/hr via site #1. via IV pump. Allergies verified and confirmed 5 rights. IV patency established. IVsite checked: no pain, redness, or swelling. IV flushed thoroughly pre- and post-medication administration.Information reviewed including reason for taking this medication. Verbalizes understanding (reviewed withcaregiver). --22:43 10/09/19 Qian Bernard R.N.23:37 10/09/2019 ROCEPHIN (1GM/50ML) IVPB via IV site #1 Discontinued: infused. Total amountinfused: 50 mL. IV patency established. IV site checked: no pain, redness, or swelling. IV flushedthoroughly. --23:37 10/09/19 Qian Bernard R.N.23:38 10/09/2019 Started 40 mg of Protonix (Pantoprazole Sodium) IVPB in bag #1 100 mL; at 200 mL/hrvia site #1. --23:38 10/09/19 Qian Bernard R.N. 5 Clinical Report - Nurses [facility] Emergency Department [address] [place] [address] Phone #: ext- [phone] 10/09/2019 19:00 Patient: NKECHI OSPINA Sex: M : 1960 Age: 58y 00:46 10/10/19. BP: 134/97. MAP: 109. HR: 86. RR: 20. O2 saturation: 96% on room air. Temp: 98.7 F (temporal). Pain level now: 0/10. --00:47 10/10/19 Qian Bernard R.N. 01:00 10/10/2019 IV Fluids IV NS via IV site #1 Discontinued: infused upon discharge. Total amount infused: 900 mL. IV patency established. IV site checked: no pain, redness, or swelling. IV flushed thoroughly. --01:00 10/10/19 Qian Bernard R.N. 01:22 10/10/2019 Protonix IVPB via IV site #1 Discontinued: infused. Total amount infused: 100 mL. IV patency established. IV site checked: no pain, redness, or swelling. IV flushed thoroughly. --01:22 10/10/19 Qian Bernard R.N. 16 fr urinary catheter placed in ED. Reason for indwelling catheter: critical need to monitor intake and output. During procedure hand hygiene observed and sterile equipment and aseptic technique used. Return of clear urine; attached to bedside drainage bag positioned below the bladder and secured with stabilization device. He tolerated procedure well. --02:17 10/10/19 Qian Bernard R.N. duplicate --02:18 10/10/19 Qian Bernard R.N. Franks catheter. --02:19 10/10/19 Qian Bernard R.N.DISPOSITION / DISCHARGE 01:10/10/2019 Site #1 removed upon discharge. Pressure dressing applied. --01:01 10/10/19 Qian Bernard R.N. Charted on wrong patient. --01:40 10/10/19 Qian Bernard R.N. Departure time: 01:10/10/2019. Condition at departure: improved. No learning barriers present. Discharge instructions provided and reviewed with the patient. Reviewed referrals. Patient verbalized understanding. Written instructions provided in Belarusian. The patient was discharged home. He left ambulatory and via private vehicle. --01:03 10/10/19 Qian Bernard R.N. Charted On Wrong Patient --01:05 10/10/19 Qian Bernard R.N. 01:00 10/10/19. BP: 147/88. MAP: 107. HR: 90. RR: 23. O2 saturation: 96%. Temp: 97.1 F. Pain level now: 0/10. --01:03 10/10/19 Qian Bernard R.N. Charted on wrong patient. --01:05 10/10/19 Qian Bernard R.N. Departure time: 02:10/10/2019. Admitted to the Acute Inpatient Unit. Transported via stretcher. Report was given to a nurse via a phone call. --02:13 10/10/19 Qian Bernard R.N. 02:13 10/10/19. BP: 131/88. MAP: 102. HR: 79. RR: 20. O2 saturation: 94%. Temp: 100 F. --02:14 10/10/19 Qian Bernard R.N. 02:14 10/10/19. BP: 131/88. HR: 79. RR: 20. Temp: 100 F. Pain le parth now . --02:14 10/10/19 Qian Bernard R.N. 6 Clinical Report - Nurses [facility] Emergency Department [address] [place] [address] Phone #: ext- [phone] 10/09/2019 19:00 Patient: NKECHI OSPINA Sex: M : 1960 Age: 58yLocked/Released at 10/10/2019 02:19 by Qian Bernard R.N. Name Value Range Interpretation Code Description Data Trini rce(s) Supporting Document(s) ID Date Data Source [id number] 10/09/2019 07:15:00 PM EDT [facility] 1 Clinical Report - Physicians/Mid Levels [facility] Emergency Department [address] [place] [address] Phone #: ext- [phone] 10/09/2019 19:00 Patient: NKECHI OSPINA Sex: M : 1960 Age: 58y Time Seen: 19:00 10/09/2019. Arrived- By private vehicle. Historian- patient. Disposition decision: 22:58 10/09/2019.HISTORY OF PRESENT ILLNESS Chief Complaint: VOMITING. ABDOMINAL CRAMPS and NAUSEA Fever / Headache. This started today and is still present but is better now. It was abrupt in onset and has been waxing/waning. No recent travel. He has had nausea and abdominal pain. He has had moderate vomiting (Black emesis earlier this morning). The vomiting has had the appearance of coffee-grounds. No diarrhea, black stools, bloody stools, constipation or flank pain. No history of possible bad food exposure, known contact with a sick individual or change in routine. Has not recently been camping or on antibiotics. The illness is described as moderate. Similar symptoms previously. (for several hours). Recent medical care: Not recently seen/assessed.REVIEW OF SYSTEMSThe patient has had fever. No muscle aches, difficulty with urination, dark urine, headache or dizziness.No sore throat, cough, chest pain, difficulty breathing or excessive urination. No skin rash, jaundice, backpain, fainting episodes or blurred vision.PAST HISTORYPast history not negative. See nurses notes. Hypertension. Neurological disease. GI disease. Otherdisease. Cerebral palsy / MRMRSAUrinary IncontinenceOsteoporosisLegal blindnessConstipationSeizure Disorder.SOCIAL HISTORYNever smoker. No alcohol use or drug use. No recent travel.ADDITIONAL NOTESThe nursing notes have been rev iewed with agreement regarding the chief complaint, HPI, ROS, PMH andpatient medications and allergies.PHYSICAL EXAMVital Signs: 10/09/2019 19:06 BP: 137/102. MAP: 113. HR: 114. RR: 18. O2 saturation: 98%. Temp: 99.3 2 Clinical Report - Physicians/Mid Levels [facility] Emergency Department [address] [place] [address] Phone #: ext- [phone] 10/09/2019 19:00 Patient: NKECHI OSPINA Sex: M : 1960 Age: 58y F. Have been reviewed and appear to be correct. Hypertensive. Tachycardic. Respiratory rate normal. Temperature normal. Oxygen saturation normal. Appearance: Alert. Oriented X3. Anxious. Patient in moderate distress. In distress. Eyes: Pupils equal, round and reactive to light. Eyes inspection not normal. Pale conjunctivae. ENT: Nose normal. Pharynx abnormal. Dry mucous membranes present. (Very poor dentition). Neck: Normal inspection. Neck supple. CVS: Heart rate abnormal. Tachycardia. Normal heart rhythm. Heart sounds normal. Pulses normal. Respiratory: No respiratory distress. Breath sounds abnormal. Mildly decreased air movement bilaterally. Painless inspiration. Abdomen: Soft. Mild tenderness diffusely. Bowel sounds normal. No organomegaly. No mass. Tenderness present. Back: Normal inspection. Skin: Skin warm and dry. Pallor. A bnormal skin color. No rash. Normal skin turgor. Extremities: Extremities do not exhibit normal ROM. No lower extremity edema. Neuro: Disoriented. Severely altered mental status. Patient slow to respond and has incoherent responses. Responds to simple questions and commands. (Cerebral palsy - Poor mentation). Cranial nerve deficit present, as evidenced by a visual field deficit on the right and left and a loss of the corneal reflex on the right and left (Blindness). Motor deficit noted. The patient has generalized weakness. Sensory deficit noted.LABS, X-RAYS, AND EKGLaboratory Tests: Laboratory tests have been ordered, with results reviewed and considered in themedical decision making process. Urinalysis: (SABRINA: 10/09/2019 22:30) ( [facility] 10/09/2019 22:37) Final results Test Result Flag Units (Reference) URINALYSIS URINALYSIS SOURCE R COLOR yellow (NORMAL: Yello CLARITY cloudy (NORMAL: Clear SPEC GRAVITY 1.010 (1.001 - 1.030 pH 7 (5 - 9) GLUCOSE NORM (NORMAL: Negat BILIRUBIN NEG (NORMAL: Negat KETONE NEG (NORMAL: Negat PROTEIN NEG (NORMAL: Negat NITRITE POS (NORMAL: Negat BLOOD 10 A (NORMAL: Negat LEUK EST 500 A (NORMAL: Negat UROBILINOGEN NOR (less than 1.0 MICROSCOPIC See Below WBC 7 - 10 A (NORMAL: NONE RBC 3 - 5 (NORMAL: NONE EPITHELIAL MODERATE A (NORMAL: NONE BACTERIA 2+ MOD A (NORMAL: NONE Troponin-T: (SABRINA: 10/09/2019 19:45) ( [facility] 10/09/2019 20:24) Final results Test Result Flag Units (Reference) TROPONIN T <0.01 NG/ML (0.00 - 0.10) TROPONIN T0.1 ng/ml Recommended as the clinical threshold value Khari King 3 Clinical Report - Physicians/Mid Levels [facility] Emergency Department [address] [place] [address] Phone #: ext- [phone] 10/09/2019 19:00 Patient: NKECHI OSPINA Sex: M : 1960 Age: 58yBNP: (SABRINA: 10/09/2019 19:45) ( MsgRcvd 10/09/2019 20:24) Final results Test Result Flag Units (Reference) BNP 135 H PG/ML (0 - 125)CBC w Diff: (SABRINA: 10/09/2019 19:45) ( MsgRcvd 10/09/2019 20:29) Final results Test Result Flag Units (Reference) CBC W/AUTOMATED DIFF COMPLETE BLOOD COUNT WBC 21.5 H 10/uL (4.2 - 11.0) RBC 4.55 10/uL (4.50 - 6.30) HEMOGLOBIN 13.1 L g/dL (14.0 - 16.0) HEMATOCRIT 39.5 L % (41.0 - 51.0) MCV 86.8 fL (80.0 - 94.0) MCH 28.8 pg (27.0 - 34.0) MCHC 33.2 g/dL (31.0 - 36.0) RDW 13.9 % (11.5 - 14.8) PLATELETS 344 10/uL (150 - 450) MPV 10.8 H fL (7.4 - 10.4) NEUT 79.4 % (37.0 - 80.0) LYMPH 10.1 L % (25.0 - 40.0) MONO 9.7 H % (3.0 - 8.0) EOS 0.1 % (0.0 - 7.0) BASO 0.2 % (0.0 - 2.0) %IG 0.5 H % (0.0 - 0.0) %NRBC 0.0 % (0.0 - 0.0) #NEUT 17.11 H 10/uL (2.00 - 6.90) #LYMPH 2.17 10/uL (0.60 - 3.40) #MONO 2.09 H 10/uL (0.00 - 0.90) #EOS 0.02 10/uL (0.00 - 0.70) #BASO 0.04 10/uL (0.00 - 0.20) #IG 0.10 10/uL (0.00 - 0.10) #NRBC 0.00 10/uL (0.00 - 0.00) MANUAL DIFF SEE BELOW SEGS 78 % (37 - 80) BAND 3 % (0 - 5) %LYMPH 11 L % (25 - 40) %MONO 8 % (3 - 8) RBC MORPH MORPH IS NORMALCMP: (SABRINA: 10/09/2019 19:45) ( MsgRcvd 10/09/2019 20:24) Final results Test Result Flag Units (Reference) COMPREHENSIVE METABOLIC PANEL COMPREHENSIVE METABOLIC PANEL SODIUM 139 mEq/L (134 - 153) POTASSIUM 4.6 mEq/L (3.6 - 5.0) CHLORIDE 97 L mEq/L (98 - 107) CO2 28 MEQ/L (22 - 30) GLUCOSE 122 H MG/DL (65 - 110) BUN 24 H MG/DL (7 - 21) CREATININE 1.2 MG/DL (0.7 - 1.5) BUN/CREAT 20 (8 - 27) TOTAL PROTEIN 7.8 G/DL (6.3 - 8.2) ALBUMIN 4.3 G/DL (3.9 - 5.0) GLOBULIN 3.5 H GM/DL (2.4 - 3.2) A/G RATIO 1.2 (0.8 - 2.0) 4 Clinical Report - Physicians/Mid Levels [facility] Emergency Department [address] [place] [address] Phone #: ext- [phone] 10/09/2019 19:00 Patient: NKECHI OSPINA Sex: M : 1960 Age: 58y CALCIUM 9.9 MG/DL (8.4 - 10.2) TOTAL BILI <0.7 MG/DL (0.2 - 1.3) ALKALINE PHOS 120 U/L (38 - 126) SGOT/AST 26 U/L (5 - 40) SGPT/ALT 18 U/L (7 - 56) ANION GAP 14.0 mmol/L (8.0 - 16.0) AGE 58 yrs NON-AA GFR >60 mL/min AFR AMER GFR >60 mL/min Male GFR Interprentation 20-49 yrs >60 mL/min [place]85-85 yrs >56 mL/min Normal 60-69 yrs >49 mL/min Normal 70-79yrs>42 mL/min Normal 80 and above >35 mL/min Normal Female GFRInterpretation 20-39 yrs >60 mL/min Normal 40-49 yrs >58 mL/minNormal 50-59 yrs >51 mL/min Normal 60-69 yrs >45 mL/min Iisgte73-58 yrs >39 mL/min Normal 80 and above >32 mL/min NormalCPK: (SABRINA: 10/09/2019 19:45) ( MsgRcvd 10/09/2019 20:24) Final results Test Result Flag Units (Reference) CPK 1470 H U/L (30 - 170)D-Dimer: (SABRINA: 10/09/2019 19:45) ( MsgRcvd 10/09/2019 21:03) Final results Test Result Flag Units (Reference) D-DIMER QUANT 0.85 H ug/mL (0.27 - 0.50)Lactic Acid: (SABRINA: 10/09/2019 19:45) ( MsgRcvd 10/09/2019 22:05) Final results Test Result Flag Units (Reference) LACTIC ACID (LACTATE) RESULTS CALLED TO ALE [id number] [place] [address] CLIA# [id number] SEE SCANNED REPORTLipase: (SABRINA: 10/09/2019 19:45) ( MsgRcvd 10/09/2019 20:24) Final results Test Result Flag Units (Reference) LIPASE 11 L U/L (13 - 60)CT Head W/O Cont: (SABRINA: 10/09/2019 19:30) ( ArgRcvd 10/09/2019 21:13) Final resultsCT HEAD W/O CONTRASTReason(s): Head InjuryTRANSPORTATION: S IV? O2? Oxygen?(No) Room: ED Exam CT HEAD W/[place] [address] ---------NAME--------- NUMBER SEX AGE ADMIT DISC. XRAY# F/C TYPE RIPPLE NKECHI [id number] M 58 10/09/19 20 7708 MB4 E/R DATE OF : 1960 M/R# [id number] PH#: [phone] TR-1B LOCATION: EMERGENCY DEPT TRANSCRIBED: 10/09/19 21:[address] HEAD W/O CONTRAST [id number] COMPLETED:10/09/19 21:13 yaritza [id number] Reason(s): Head Injury Head Pain Headache PHYSICIAN: LEESA BR 5 Clinical Report - Physicians/Mid Levels [facility] Emergency Department [address] [place] [address] Phone #: ext- [phone] 10/09/2019 19:00 [id number] Sex: M : 1960 Age: 58y R A D I O L O G Y R E P O R T PATIENT HISTORY:CT HEAD W/O CONTRASTHead Injury. Accumulated DLP-771.6 mGy*cm. Male. Patientresisted restraints. best possible images due to lack of cooperation.Verification of 2 patient identifiers performed. - RLB / ANGLED BRAIN (DICOM Hx)CT Head ( Brain )History:CT HEAD W/O CONTRASTHead Injury. Accumulated DLP-771.6 mGy*cm. Male. Patientresisted restraints. best possible images due to lack of cooperation.Verification of 2 patient identifiers performed. 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 Advisecorrelation with clinical history.Patchy low-attenuation areas in the deep white matter consistent with moderatesmall vessel ischemic white matter disease noted.There is no evidence for mass, mass effect or midline shift.No intracranial hemorrhage. No abnormal extra-axial fluid collection.The third and fourth ventricles are patent.Basal cisterns are unremarkable.Bony structures are unremarkable.Mastoid air cells are within normal limits.Paranasal sinuses are normal.IMPRESSIONS:No acute intracranial process identified. 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 Advisecorrelation with clinical history.Patchy low-attenuation areas in the deep white matter consistent with moderatesmall vessel ischemic white matter disease noted.While performing the above CT examination, radiation dose reduction wasaccomplished utilizing automated exposure control, adjusting of the mA and kVbased on the patient's body size and/or the use of imperative recon structivetechniques.Electronically Signed By:Gold Morrissey M.D. , RadiologistDate/Time: 10/09/19 21:12 6 Clinical Report - Physicians/Mid Levels [facility] Emergency Department [address] [place] [address] Phone #: ext- [phone] 10/09/2019 19:00 Patient: NKECHI OSPINA Sex: M : 1960 Age: 58yCT Chest W/O Cont: (SABRINA: 10/09/2019 19:30) ( MsgRcvd 10/09/2019 21:41) Final resultsCT THORAX W/O CONTRASTReason(s): CoughTRANSPORTATION: S IV? O2? Oxygen?(No) Room: ED Exam CT THORAX W/[place] [address] ---------NAME--------- NUMBER SEX AGE ADMIT DISC. XRAY# F/C TYPE ANAI ARBOLEDA [id number] M 58 10/09/19 [id number] MB4 E/R DATE OF : 1960 M/R# [id number] #: [id number] TR-1B LOCATION: EMERGENCY DEPT TRANSCRIBED: 10/09/19 21:[address] THORAX W/O CONTRAST [id number] COMPLETED:10/09/19 21:41 yaritza [id number] Reason(s): Cough Fever PHYSICIAN: LEESA BR R A D I O L O G Y R E P O R T PATIENT HISTORY: Cough. Accumulated DLP(Thorax and Abdomen/Pelvis combined.)- 1497 mGy*cm. Male. Verification of 2 patient identifiers performed. - RLB / CHEST (DICOM Hx) EXAM: CT Chest Without IV contrast. CLINICAL HISTORY: Cough. Accumulated DLP(Thorax and Abdomen/Pelvis combined.)-1497 mGy*cm. Male. Verification of 2 patient identifiers performed. - RLB TECHNIQUE: Axial computed tomography images of the chest without intravenous contrast. COMPARISON: None provided. FINDINGS: LUNGS: Moderate indistinct alveolar opacity seen in the posterior lungs. PLEURAL SPACES: No pneumothorax evident. No pleural effusions. HEART: No cardiomegaly. No significant pericardial effusion. LYMPH NODES: No lymphadenopathy is evident. UPPER ABDOMEN: Abdominal findings described separately. BONES: No acute osseous abnormality. MISCELLANEOUS: Noncontrast study without direct assessment of vascular structures. IMPRESSIONS: Moderate indistinct alveolar opacity seen in the posterior lungs, likely pneumonia. While performing the above CT examination, radiation dose reduction was 7 Clinical Report - Physicians/Mid Levels [facility] Emergency Department [address] [place] [address] Phone #: ext- [phone] 10/09/2019 19:00 Patient: NKECHI OSPINA Sex: M : 1960 Age: 58y accomplished utilizing automated exposure control, adjusting of the mA and kV based on the patient's body size and/or the use of imperative reconstructive techniques. Electronically Signed By: Jacob Mir M.D. , Radiologist Date/Time: 10/09/19 21:40CT ABD PEL W/O Oral W/O IV Contrast: (SABRINA: 10/09/2019 19:30) ( MsgRcvd 10/09/2019 21:51)Final resultsCT ABDReason(s): Abdominal PainTRANSPORTATION: S IV? IV?(Yes) O2? Oxygen?(No) Ro Exam CT ABD //T// PELV W/O ORAL W/[place] [address] ---------NAME--------- NUMBER SEX AGE ADMIT DISC. XRAY# F/C TYPE ANAI ARBOLEDA [id number] M 58 10/09/19 [id number] MB4 E/R DATE OF : 1960 M/R# [id number] #: [id number] TR-1B LOCATION: EMERGENCY DEPT TRANSCRIBED: 10/09/19 21:[address] ABD //T// PELV W/O ORAL W/[place] [id number] COMPLETED:10/09/19 21:51 yaritza [id number] Reason(s): Abdominal Pain Vomiting PHYSICIAN: LEESA BR R A D I O L O G Y R E P O R T PATIENT HISTORY: Abdominal Pain. Accumulated DLP(Thorax and Abdomen/Pelvis combined.)-1497 mGy*cm. Male. Verification of 2 patient identifiers performed. - RLB / ABD/PEL (DICOM Hx) EXAM: CT Abdomen and Pelvis Without IV contrast CLINICAL HISTORY: Abdominal Pain. Accumulated DLP(Thorax and Abdomen/Pelvis combined.)-1497 mGy*cm. Male. Verification of 2 patient identifiers performed. - RLB TECHNIQUE: Axial computed tomography images of the abdomen and pelvis without intravenous contrast. CONTRAST: No IV contrast. COMPARISON: None provided. FINDINGS: LUNG BASES: Chest findings described separately. LIVER: Unremarkable. GALLBLADDER AND BILE DUCTS: The gallbladder appears within normal limits. No radioopaque gallstones are seen. No biliary ductal dilatation is evident. PANCREAS: Unremarkable. 8 Clinical Report - Physicians/[facility] Emergency Department [address] [place] [address] Phone #: ext- [phone] 10/09/2019 19:00 -------- Patient: NKECHI OSPINA Sex: M : 1960 Age: 58y SPLEEN: Unremarkable. ADRENAL GLANDS: Unremarkable. KIDNEYS, URETERS, AND BLADDER: The kidneys appear within normal limits. There is no hydronephrosis or hydroureter. No urinary calculi are seen. STOMACH AND BOWEL: Unremarkable appearance of the stomach and bowel. No evidence of bowel obstruction. No evidence suggesting enteritis or colitis. APPENDIX: No evidence of acute appendicitis on CT examination. PERITONEUM: No free fluid. No free air. LYMPH NODES: No lymphadenopathy is evident. REPRODUCTIVE: Unremarkable as visualized. VASCULATURE: No evidence of abdominal aortic aneurysm. BONES: No aggressive appearing osseous lesion. No acute osseous pathology evident. IMPRESSIONS: No acute abnormality identified. While performing the above CT examination, radiation dose reduction was accomplished utilizing automated exposure control, adjusting of the mA and kV based on the patient's body size and/or the use of imperative reconstructive techniques. Electronically Signed By: Jacob Mir M.D. , Radiologist Date/Time: 10/09/19 21:50 . Note - Tests: (CT abdomen / pelvis - Unremarkable. CT chest - Moderately indistinct alveolar opacity in posterior lungs - likely pneumonia. EKG - Sinus tach at 111/min. CT head - No acute process. Old R and L basal ganglia lacunar infarcts. Dysgenesis / agenesis of corpus callosum.).PROGRESS AND PROCEDURESCourse of Care: :Oct 09 2019. Patient is stable. 22:24 Oct 09 2019. Pt. 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 He will get ABX and fluid IV and he will need [facility] personnel at bedside at all times to advocate for him. I will call Dr. Reilly (Hospitalist) now for admission. Critical care performed (130 minutes). Time is exclusive of separately billable procedures. Time includes: direct patient care, patient reassessment, coordination of patient care, interpretation of data (laboratory 9 Clinical Report - Physicians/Mid Levels [facility] Emergency Department [address] [place] [address] Phone #: ext- [phone] 10/09/2019 19:00 Patient: NKECHI OSPINA Sex: M : 1960 Age: 58y data and pulse oximetry), review of patient's medical records, medical consultation, family consultation regarding treatment decisions and documentation of patient care- see progress notes. Procedures included in critical care time: peripheral IV placement and phlebotomy- see progress notes. Disposition: Observation in the Acute Inpatient Unit, Monitored. 22:58 Oct 09 2019 Admit to observation bed as per Dr. Reilly for pneumonia. UTI (catheter associated) was not present prior to being placed in observation. Pressure ulcer was not present prior to being placed in observation. Vascular infection (catheter associated)n was not present prior to being placed in observation. Surgical site infection was not present prior to being placed in observation. An object left in surgery was not present prior to being placed in observation. Blood incompatibility was not present prior to being placed in observation. Air embolism was not present prior to being placed in observation.CLINICAL IMPRESSION Bronchopneumonia. No hypoxemia or respiratory failure. Acute urinary tract infection with cystitis. No hematuria. Not associated with indwelling catheter or obstruction.(Electronically signed by Reese Landers, Physician 10/10/2019 05:43) Name Value Range Interpretation Code Description Data Trini rce(s) Supporting Document(s) ID Date Data Source [id number] 10/10/2019 07:41:00 AM EDT [facility] Name Value Range Interpretation Code Description Data [facility] rce(s) Supporting Document(s) CBC W/AUTOMATED DIFF [facility] COMPLETE BLOOD COUNT Leukocytes [#/volume] in Blood by Automated count 11.6 10^3/uL 4.2 - 11.0 H [facility] Erythrocytes [#/volume] in Blood by Automated count 3.76 10^6/uL 4. 50 - 6.30 L [facility] Hemoglobin [Mass/volume] in Blood 10.9 g/dL 14.0 - 16.0 L [facility] Hematocrit [Volume Fraction] of Blood by Automated count 32.9 % 4 1.0 - 51.0 L [facility] Erythrocyte mean corpuscular volume [Entitic volume] by Auto mated count 87.5 fL 80.0 - 94.0 [facility] Erythrocyte mean corpuscular hemoglobin [Entitic mass] by Automated count 29.0 pg 27.0 - 34.0 [facility] Erythrocyte mean corpuscular hemoglobin concentration [Mass/volume] by Automated count 33.1 g/dL 31.0 - 36.0 [facility] Erythrocyte distribution width [Ratio] by Automated count 13.7 % 11.5 - 14.8 [facility] Platelets [#/volume] in Blood by Automated count 247 10^3/uL 150 - 45 0 [facility] Platelet mean volume [Entitic volume] in Blood by Automated count 10.5 fL 7.4 - 10.4 H [facility] Neutrophils/100 leukocytes in Blood by Automated count 66.8 % 37. 0 - 80.0 [facility] Lymphocytes/100 leukocytes in Blood by Manual count 21.9 % 25.0 - 40.0 L [facility] Monocytes/100 leukocytes in Blood by Automated count 10.6 % 3.0 - 8.0 H [facility] Eosinophils/100 leukocytes in Blood by Automated count 0.2 % 0.0 - 7.0 [facility] Basophils/100 leukocytes in Blood by Automated count 0.2 % 0.0 - 2.0 [facility] %IG 0.3 % 0.0 - 0.0 H [facility] %NRBC 0.0 % 0.0 - 0.0 [facility] al Neutrophils [#/volume] in Blood by Automated count 7.74 10^3/uL 2.00 - 6.90 H [facility] Lymphocytes [#/volume] in Blood by Automated count 2.54 10^3/uL 0.60 - 3.40 [facility] Monocytes [#/volume] in Blood by Automated count 1.23 10^3/uL 0.00 - 0.90 H [facility] Eosinophils [#/volume] in Blood by Automated count 0.02 10^3/uL 0.00 - 0.70 [facility] Basophils [#/volume] in Blood by Automated count 0.02 10^3/uL 0.00 - 0.20 [facility] #IG 0.03 10^3/uL 0.00 - 0.10 [facility] #NRBC 0.00 10^3/uL 0.00 - 0.00 [facility] ospital MANUAL DIFF SEE BELOW [facility] ital Segmented neutrophils/100 leukocytes in Blood by Manual count 75 % 37 - 80 [facility] %LYMPH 18 % 25 - 40 [facility] %MONO 6 % 3 - 8 [facility] %EOS 1 % 0 - 7 [facility] RBC MORPH NOT INDICATED [facility] ID Date Data Source [id number] 10/10/2019 07:17:00 AM EDT [facility] Name Value Range Interpretation Code Description Data Trini rce(s) Supporting Document(s) Creatine kinase [Enzymatic activity/volume] in Serum or Plas ma 1461 U/L 30 - 170 H [facility] ID Date Data Source [id number] 10/10/2019 07:17:00 AM EDT [facility] Name Value Range Interpretation Code Description Data Trini rce(s) Supporting Document(s) COMPREHENSIVE METABOLIC PANEL [facility] COMPREHENSIVE METABOLIC PANEL Sodium [Moles/volume] in Serum or Plasma 139 mEq/L 134 - 153 [facility] Potassium [Moles/volume] in Serum or Plasma 3.5 mEq/L 3.6 - 5.0 L [facility] Chloride [Moles/volume] in Serum or Plasma 104 mEq/L 98 - 107 [facility] Carbon dioxide, total [Moles/volume] in Serum or Plasma 24 MEQ/L 22 - 30 [facility] Glucose [Mass/volume] in Serum or Plasma 89 MG/DL 65 - 110 [facility] BUN 16 MG/DL 7 - 21 [facility] Creatinine [Mass/volume] in Serum or Plasma 0.8 MG/DL 0.7 - 1.5 [facility] BUN/CREAT 20 8 - 27 [facility] al Protein [Mass/volume] in Serum or Plasma 6.3 G/DL 6.3 - 8.2 [facility] Albumin [Mass/volume] in Serum or Plasma 3.5 G/DL 3.9 - 5.0 L [facility] Globulin [Mass/volume] in Serum by calculation 2.8 GM/DL 2.4 - 3.2 [facility] A/G RATIO 1.3 0.8 - 2.0 [facility] Calcium [Mass/volume] in Serum or Plasma 8.0 MG/DL 8.4 - 10.2 L [facility] Bilirubin.total [Mass/volume] in Serum or Plasma <0.7 MG/DL 0.2 - 1.3 [facility] Alkaline phosphatase [Enzymatic activity/volume] in Serum or Plasma 92 U/L 38 - 126 [facility] Aspartate aminotransferase [Enzymatic activity/volume] in Serum or Plasma 26 U/L 5 - 40 [facility] Alanine aminotransferase [Enzymatic activity/volume] in Seru m or Plasma 15 U/L 7 - 56 [facility] Anion gap 3 in Serum or Plasma 11.0 mmol/L 8.0 - 16.0 [facility] AGE 58 yrs [facility] NON-AA GFR >60 mL/min [facility] ital AFR AMER GFR >60 mL/min [facility] Male GFR In terprentation 20-49 yrs >60 mL/min Normal 50-59 yrs >56 mL/min Normal 60-69 yrs >49 mL/min Normal 70-79yrs >42 mL/min Normal 80 and above >35 mL/min Normal Female GFR Interpretation 20-39 yrs >60 mL/min Normal 40-49 yrs >58 mL/min Normal 50-59 yrs >51 mL/min Normal 60-69 yrs >45 mL/min Normal 70-79 yrs >39 mL/min Normal 80 and above >32 mL/min Normal ID Date Data Source [id number] 10/10/2019 07:16:00 AM EDT [facility] Name Value Range Interpretation Code Description Data Trini rce(s) Supporting Document(s) TROPONIN T <0.01 NG/ML 0.00 - 0.10 [facility] ospital TROPONIN T0.1 ng/ml Recommended as the c linical threshold value forTroponin T. ID Date Data Source [id number] 10/10/2019 01:14:00 AM EDT [address] [address] ---------NAME--------- NUMBER SEX AGE ADMIT DISC. XRAY# F/C TYPE RIPPLE NKECHI [id number] M 58 10/09/19 [id number] MB4 O/P DATE OF : 1960 M/R# [id number] #: [id number] LOCATION: EMERGENCY DEPT TRANSCRIBED: 10/10/19 1:[address] CTA CHEST NON-CORONARY W [id number] COMPLETED:10/10/19 1:15 yaritza [id number] {REASON FOR EXAM: eLEVATED d-DIMER PHYSICIAN: ISAEL HERNÁNDEZ== R A D I O L O G Y R E P O R T =====PATIENT HISTORY:Elevated D-Dimer. Accumulated DLP-522.2 mGy, Estimated DLP- 502.6 mGy*cm. DSD378,75mL, [id number], 01/07. BUN-24, Createnine-1.2, GFR >60. Male.Time Out performed. Correct patient with 2 identifiers, type and amount ofcontrast used, correct body part and side all verified prior to examination. - RLB / LUNG (DICOM Hx)EXAM: CTA Chest with Intravenous Contrast for PE evaluationCLINICAL HISTORY: Elevated D-Dimer. Accumulated DLP-522.2 mGy, EstimatedDLP-502.6 mGy*cm. QFV582, 75mL, 1T03935, 01/07. BUN-24, Createnine-1.2, GFR >60.Male. Time Out performed. Correct patient with 2 identifiers, type and amountof contrast used, correct body part and side all verified prior to examination.- RLBTECHNIQUE: Axial CTA images of the chest with intravenous contrast using apulmonary embolism protocol. Multiplanar reconstructed images were created andreviewed.CONTRAST: With; WXA085, 75mL. was administered without incident.COMPARISON: None provided.FINDINGS:PULMONARY ARTERIES: No evidence of central or segmental pulmonary embolism isseen.AORTA: There is no evidence for aneurysm or dissection of the thoracic aorta.LUNGS: Moderate patchy indistinct alveolar opacities in the bilateral lowerlobes.PLEURAL SPACES: No pleural effusion seen. No pneumothorax evident.HEART: Normal heart size. No significant pericardial effusion.LYMPH NODES: No lymphadenopathy is evident.BONES: No focal osseous abnormality or acute fracture.UPPER ABDOMEN: Small hiatal hernia.IMPRESSIONS:No evidence of pulmonary embolus.Moderate patchy indistinct alveolar opacities in the bilateral lower lobes,likely pneumonia.Small hiatal hernia.While performing the above CT examination, radiation dose reduction wasaccomplished utilizing automated exposure control, adjusting of the mA and kVbased on the patient's body size and/or the use of imperative reconstructivetechniques.Electronically Signed By:Jacob Mir M.D. , RadiologistDate/Time: 10/10/19 01:14 Name Value Range Interpretation Code Description Data Trini rce(s) Supporting Document(s) ID Date Data Source [id number] 10/13/2019 03:08:00 PM EDT [facility] Name Value Range Interpretation Code Description Data Trini rce(s) Supporting Document(s) CULTURE URINE [facility] spital _CULTURE URINE_$$[id number]$$136498$$586818$$806150$$096375$$365967$$608872$$723989$$629331$$ 868777$$665826$$265291$$833860$$191551$$455753$$835073$$806001$$445467$$288153$$ 511513$$112571$$155335$$288159$$687093$$831177$$385865$$[id number] -- Continued on next page --Patient: [facility] Order: [id number] Page 2Culture: CULTURE URINE Status: Final ==== -- Continued on next page --Patient: [facility] Order: [id number] Page 2Culture: CULTURE URINE Status: Prelim =====$$[id number]$$[id number] DATE/TIME: 10/13/2019 10:06Culture: CULTURE URINE Status: FinalIsolate 1 Escherichia coli Flag: A . . . . . . .1Greater than 100,000 colony forming units per mLCefazolin with an HALEIGH <=16 predicts susceptibility to the oral agentscefaclor, cefdinir, cefpodoxime, cefprozil, cefuroxime, cephalexin,and loracarbef when used for therapy of uncomplicated urinary tractinfections due to E. coli, Klebsiella pneumoniae, and Proteusmirabilis. Previous result entered on 10/12/2019 03:27 ET Gram negative rodsUrine Culture,Comprehensive: [id number] coli Flag: APatient: ANAI ARBOLEDA Order: [id number] Page 3Culture: CULTURE URINE Status: Final ISOLATE 1 Escherichia coli Isolate 1Antibiotic HALEIGH IntUnits ug/mL----- Amoxic illin/Clavulanic Acid R R . . . . . .20-8Ampicillin R R . . . . . .28- 1Cefazolin S S . . . . . .76-0Cefepime S S . . . . . .6644-9Ceftriaxone S S . . . . . .141-2Ciprofloxacin S S . . . . . .185-9Ertapenem S S . . . . . .21465-5Qhexijufld S S . . . . . .267-5Imipenem S S . . . . . .279-0Levofloxacin S S . . . . . .76020-0Apebhvlka S S . . . . . .6652- 2Nitrofurantoin S S . . . . . .363-2Piperacillin/Tazobactam S S . . . . . .412-7Tetracycline S S . . . . . .496-0Tobramycin S S . . . . . .508-2Trimethoprim/Sulfa S S . . . . . .516-5P1 Test performed by: [facility] #: [id number] [address] [id number] [facility] [id number] Director : Emeterio Gregory MD NPI #:[employer] Professor : 10/12/19.0911.XMT.SENT REF 10/13/19.1508.XMT.SENT REF ID Date Data Source [id number] 10/09/2019 10:37:00 PM EDT [facility] Name Value Range Interpretation Code Description Data Trini rce(s) Supporting Document(s) [facility] COL[facility] yellow NORMAL: Yellow [facility] CLARITY cloudy NORMAL: Clear [facility] Specific gravity of Urine by Test strip 1.010 1.001 - 1.030 [facility] pH 7 5 - 9 [facility] Glucose [Mass/volume] in Urine by Test strip NORM NORMAL: Negat [facility] Bilirubin.total [Presence] in Urine by Test strip NEG NORMAL: Negative [facility] Ketones [Presence] in Urine by Test strip NEG NORMAL: Negative [facility] Protein [Mass/volume] in Urine by Test strip NEG NORMAL: Negat [facility] Nitrite [Presence] in Urine by Test strip POS NORMAL: Negative [facility] BLOOD 10 NORMAL: Negative [facility] Leukocyte esterase [Presence] in Urine by Test strip 500 JIMMY L: Negative [facility] Urobilinogen [Mass/volume] in Urine by Test strip NOR less arthur n 1.0 mg/dL [facility] MICROSCOPIC See Below [facility] ital WBC 7 - 10 NORMAL: NONE SEEN A [facility] Erythrocytes [#/volume] in Urine by Test strip 3 - 5 NORMAL: NON E SEEN [facility] EPITHELIAL MODERATE NORMAL: NONE SEEN A [facility] Bacteria [Presence] in Urine sediment by Light microscopy 2+ MOD NORMAL: NONE SEEN A [facility] ID Date Data Source [id number] 10/09/2019 09:50:00 PM EDT [facility] [address] [place] [address] ---------NAME--------- NUMBER SEX AGE ADMIT DISC. XRAY# F/C TYPE RIPPLE NKECHI [id number] M 58 10/09/19 [id number] MB4 E/R DATE OF : 1960 M/R# [id number] PH#: [phone] TR-1B LOCATION: EMERGENCY DEPT TRANSCRIBED: 10/09/19 21:[address] ABD //T// PELV W/[place] ORAL W/[place] [id number] COMPLETED:10/09/19 21:51 yaritza [id number] Reason(s): Abdominal Pain Vomiting PHYSICIAN: LEESA BR = R A D I O L O G Y R E P O R T =========PATIENT HISTORY:Abdominal Pain. Accumulated DLP(Thorax and Abdomen/Pelvis combined.)-1497mGy*cm. Male.Verification of 2 patient identifiers performed. - RLB / ABD/PEL (DICOM Hx)EXAM: CT Abdomen and Pelvis Without IV contrastCLINICAL HISTORY: Abdominal Pain. Accumulated DLP(Thorax and Abdomen/Pelviscombined.)-1497 mGy*cm. Male. Verification of 2 patient identifiers performed. -RLBTECHNIQUE: Axial computed tomography images of the abdomen and pelvis withoutintravenous contrast.CONTRAST: No IV contrast.COMPARISON: None provided.FINDINGS:LUNG BASES: Chest findings described separately.LIVER: Unremarkable.GALLBLADDER AND BILE DUCTS: The gallbladder appears within normal limits. Noradioopaque gallstones are seen. No biliary ductal dilatation is evident.PANCREAS: Unremarkable.SPLEEN: Unremarkable.ADRENAL GLANDS: Unremarkable.KIDNEYS, URETERS, AND BLADDER: The kidneys appear within normal limits. There isno hydronephrosis or hydroureter. No urinary calculi are seen.STOMACH AND BOWEL: Unremarkable appearance of the stomach and bowel. No evidenceof bowel obstruction. No evidence suggesting enteritis or colitis.APPENDIX: No evidence of acute appendicitis on CT examination.PERITONEUM: No free fluid. No free air.LYMPH NODES: No lymphadenopathy is evident.REPRODUCTIVE: Unremarkable as visualized.VASCULATURE: No evidence of abdominal aortic aneurysm.BONES: No aggressive appearing osseous lesion. No acute osseous pathologyevident.IMPRESSIONS:No acute abnormality identified.While performing the above CT examination, radiation dose reduction wasaccomplished utilizing automated exposure control, adjusting of the mA and kVbased on the patient's body size and/or the use of imperative [employer]ivetechniques.Electronically Signed By:Jacob Mir M.D. , RadiologistDate/Time: 10/09/19 21:50 Name Value Range Interpretation Code Description Data Trini rce(s) Supporting Document(s) ID Date Data Source [id number] 10/09/2019 09:40:00 PM EDT [facility] [address] [place] [address] ---------NAME--------- NUMBER SEX AGE ADMIT DISC. XRAY# F/C TYPE RIPPLE NKECHI [id number] M 58 10/09/19 [id number] MB4 E/R DATE OF : 1960 M/R# [id number] #: [id number] TR-1B LOCATION: EMERGENCY DEPT TRANSCRIBED: 10/09/19 21:[address] THORAX W/O CONTRAST [id number] COMPLETED:10/09/19 21:41 yaritza [id number] Reason(s): Cough Fever PHYSICIAN: LEESA BR R A D I O L O G Y R E P O R T PATIENT HISTORY:Cough. Accumulated DLP(Thorax and Abdomen/Pelvis combined.)-1497 mGy*cm. Male.Verification of 2 patient identifiers performed. - RLB / CHEST (DICOM Hx)EXAM: CT Chest Without IV contrast.CLINICAL HISTORY: Cough. Accumulated DLP(Thorax and Abdomen/Pelviscombined.)-1497 mGy*cm. Male. Verification of 2 patient identifiers performed. -RLBTECHNIQUE: Axial computed tomography images of the chest without intravenouscontrast.COMPARISON: None provided.FINDINGS:LUNGS: Moderate indistinct alveolar opacity seen in the posterior lungs.PLEURAL SPACES: No pneumothorax evident. No pleural effusions.HEART: No cardiomegaly. No significant pericardial effusion.LYMPH NODES: No lymphadenopathy is evident.UPPER ABDOMEN: Abdominal findings described separately.BONES: No acute osseous abnormality.MISCELLANEOUS: Noncontrast study without direct assessment of vascularstructures.IMPRESSIONS:Moderate indistinct alveolar opacity seen in the posterior lungs, likelypneumonia.While performing the above CT examination, radiation dose reduction wasaccomplished utilizing automated exposure control, adjusting of the mA and kVbased on the patient's body size and/or the use of imperative reconstructivetechniques.Electronically Signed By:Jacob Mir M.D. , RadiologistDate/Time: 10/09/19 21:40 Name Value Range Interpretation Code Description Data Trini rce(s) Supporting Document(s) ID Date Data Source [id number] 10/09/2019 09:12:00 PM EDT [facility] [address] [place] [address] ---------NAME--------- NUMBER SEX AGE ADMIT DISC. XRAY# F/C TYPE RIPPLE NKECHI [id number] M 58 10/09/19 [id number] MB4 E/R DATE OF : 1960 M/R# [id number] #: [id number] TR-1B LOCATION: EMERGENCY DEPT TRANSCRIBED: 10/09/19 21:[address] HEAD W/O CONTRAST [id number] COMPLETED:10/09/19 21:13 yaritza [id number] Reason(s): Head Injury Head Pain Headache PHYSICIAN: LEESA BR = R A D I O L O G Y R E P O R T PATIENT HISTORY:CT HEAD W/O CONTRASTHead Injury. Accumulated DLP- 771.6 mGy*cm. Male. Patientresisted restraints. best possible images due to lack of cooperation.Verification of 2 patient identifiers performed. - RLB / ANGLED BRAIN (DICOM Hx)CT Head ( Brain )History:CT HEAD W/O CONTRASTHead Injury. Accumulated DLP-771.6 mGy*cm. Male. Patientresisted restraints. best possible images due to lack of cooperation.Verification of 2 patient identifiers performed. 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 Advisecorrelation with clinical history.Patchy low-attenuation areas in the deep white matter consistent with moderatesmall vessel ischemic white matter disease noted.There is no evidence for mass, mass effect or midline shift.No intracranial hemorrhage. No abnormal extra-axial fluid collection.The third and fourth ventricles are patent.Basal cisterns are unremarkable.Bony structures are unremarkable.Mastoid air cells are within normal limits.Paranasal sinuses are normal.IMPRESSIONS:No acute intracranial process identified. 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 Advisecorrelation with clinical history.Patchy low-attenuation areas in the deep white matter consistent with moderatesmall vessel ischemic white matter disease noted.While performing the above CT examination, radiation dose reduction wasaccomplished utilizing automated exposure control, adjusting of the mA and kVbased on the patient's body size and/or the use of imperative reconstructivetechniques.Electronically Signed By:Gold Morrissey M.D. , RadiologistDate/Time: 10/09/19 21:12 Name Value Range Interpretation Code Description Data Trini rce(s) Supporting Document(s) ID Date Data Source [id number] 10/17/2019 10:31:00 AM EDT [facility] Name Value Range Interpretation Code Description Data Trini rce(s) Supporting Document(s) CULTURE BLOOD [facility] _CULTURE BLOOD_{ PRELIM TEST PERFORMED AT [place] [id number] [place] [address] CLIA# [id number] SEE SCANNED REPORT ID Date Data Source [id number] 10/12/2019 09:45:00 AM EDT [facility]OBIC [id number] [facility] BY PARMINDER. RESULT READBACK.The FilmArray BCID Panel is a qualitative multiplexednucleic acid-based test - PCRNormal results for each test is "Not detected"The BCID panel detects KPC,mecA,Jakob/Bresistance,enterococcus,L.monocytogenes,Staphlococcus,S.aureus,St reptococcus,GRP B, GRP A, S.pneumoniae,A.baumanii,Enterobacteriaceae,E.cloacae comp stefanie,E.coli,K.oxytoca,K.pneumoniae,Proteus,S.marcescens,H.influenzae,N.meningitid is,P.aeruginosa,C. albicans,C.glabrata ,C.krusei,C.parapsilosis,C.tropicalisTraditional Culture ID and Sensitivities will still beperformed on all positive blood cultures.The FilmArray BCID panel may not distinguish mixed cultureswhen two or more species of the same genus or organism groupare present in a specimen.This test is a qualitative test and does not provide aquantitative value for the organism(s)in the sample.Antimicrobial resistance can occur via multiple mechanisms.A Not detected result for the FilmArray antimicrobialresistance gene assays does not indicate antimicrobialsusceptibility. Subculturing and standard susceptibilitytesting of isolates is requried to determine antimicrobialsusceptibility.Results from this test must be correlated with the clinicalhistory, epidemiological data,and otherdata available to theclinician evaluating the patient.mecA(meth-resistance gene)Staphylococcus species Name Value Range Interpretation Code Description Data Trini rce(s) Supporting Document(s) ID Date Data Source [id number] 10/09/2019 09:11:00 PM EDT [facility] Name Value Range Interpretation Code Description Data Trini rce(s) Supporting Document(s) Lactic w Rfx (if elevated) 2.2 mmol/L 0.5-2.2 N [facility] Called to [facility] ([facility]) @ 2109 by Beatriz Houston. Results readback. ID Date Data Source [id number] 10/16/2019 12:24:00 PM [facility] Name Value Range Interpretation Code Description Data Trini rce(s) Supporting Document(s) CULTURE BLOOD [facility] _CULTURE BLOOD_{ PRELIM GROWTH OF GRAM POSITIVE COCCI IN CLUSTERSGROWTH OF STAPH SPECIESREPORT TAKEN TO FLOOR 10/11/19 0800 CM TEST PERFORMED AT [address] [address] CLIA# [id number] SEE SCANNED REPORT ID Date Data Source [id number] 10/09/2019 10:04:00 PM EDT [facility] Name Value Range Interpretation Code Description Data Trini rce(s) Supporting Document(s) LACTIC ACID (LACTATE) [facility] RESULTS CALLED TO [place] [id number] CYNTHIA T PERFORMED AT [address] [address] CLIA# [id number] SEE SCANNED REPORT ID Date Data Source [id number] 10/09/2019 09:02:00 PM EDT [facility] Name Value Range Interpretation Code Description Data Trini rce(s) Supporting Document(s) Fibrin D-dimer FEU [Mass/volume] in Platelet poor plasma 0.85 ug /mL 0.27 - 0.50 H [facility] ID Date Data Source [id number] 10/09/2019 08:28:00 PM EDT [facility] Name Value Range Interpretation Code Description Data Trini rce(s) Supporting Document(s) CBC W/AUTOMATED DIFF [facility] COMPLETE BLOOD COUNT Leukocytes [#/volume] in Blood by Automated count 21.5 10^3/uL 4.2 - 11.0 H [facility] Erythrocytes [#/volume] in Blood by Automated count 4.55 10^6/uL 4. 50 - 6.30 [facility] Hemoglobin [Mass/volume] in Blood 13.1 g/dL 14.0 - 16.0 L [facility] Hematocrit [Volume Fraction] of Blood by Automated count 39.5 % 4 1.0 - 51.0 L [facility] Erythrocyte mean corpuscular volume [Entitic volume] by Auto mated count 86.8 fL 80.0 - 94.0 [facility] Erythrocyte mean corpuscular hemoglobin [Entitic mass] by Automated count 28.8 pg 27.0 - 34.0 [facility] Erythrocyte mean corpuscular hemoglobin concentration [Mass/volume] by Automated count 33.2 g/dL 31.0 - 36.0 [facility] Erythrocyte distribution width [Ratio] by Automated count 13.9 % 11.5 - 14.8 [facility] Platelets [#/volume] in Blood by Automated count 344 10^3/uL 150 - 45 0 [facility] Platelet mean volume [Entitic volume] in Blood by Automated count 10.8 fL 7.4 - 10.4 H [facility] Neutrophils/100 leukocytes in Blood by Automated count 79.4 % 37. 0 - 80.0 [facility] Lymphocytes/100 leukocytes in Blood by Manual count 10.1 % 25.0 - 40.0 L [facility] Monocytes/100 leukocytes in Blood by Automated count 9.7 % 3.0 - 8.0 H [facility] Eosinophils/100 leukocytes in Blood by Automated count 0.1 % 0.0 - 7.0 [facility] Basophils/100 leukocytes in Blood by Automated count 0.2 % 0.0 - 2.0 [facility] %IG 0.5 % 0.0 - 0.0 H [facility] al %NRBC 0.0 % 0.0 - 0.0 [facility] al Neutrophils [#/volume] in Blood by Automated count 17.11 10^3/uL 2. 00 - 6.90 H [facility] Lymphocytes [#/volume] in Blood by Automated count 2.17 10^3/uL 0.60 - 3.40 [facility] Monocytes [#/volume] in Blood by Automated count 2.09 10^3/uL 0.00 - 0.90 H [facility] Eosinophils [#/volume] in Blood by Automated count 0.02 10^3/uL 0.00 - 0.70 [facility] Basophils [#/volume] in Blood by Automated count 0.04 10^3/uL 0.00 - 0.20 [facility] #IG 0.10 10^3/uL 0.00 - 0.10 [facility] #NRBC 0.00 10^3/uL 0.00 - 0.00 [facility] MANUAL DIFF SEE BELOW [facility] ital Segmented neutrophils/100 leukocytes in Blood by Manual count 78 % 37 - 80 [facility] BAND 3 % 0 - 5 [facility] %LYMPH 11 % 25 - 40 L [facility] al %MONO 8 % 3 - 8 [facility] al RBC MORPH MORPH IS NORMAL [facility] ID Date Data Source [id number] 10/09/2019 08:24:00 PM EDT [facility] Name Value Range Interpretation Code Description Data Trini rce(s) Supporting Document(s) Lipase [Enzymatic activity/volume] in Serum or Plasma 11 U/L 13 - 60 L [facility] ID Date Data Source [id number] 10/09/2019 08:24:00 PM EDT [facility] Name Value Range Interpretation Code Description Data Trini rce(s) Supporting Document(s) Creatine kinase [Enzymatic activity/volume] in Serum or Plas ma 1470 U/L 30 - 170 H [facility] ID Date Data Source [id number] 10/09/2019 08:24:00 PM EDT [facility] Name Value Range Interpretation Code Description Data Trini rce(s) Supporting Document(s) COMPREHENSIVE METABOLIC PANEL [facility] COMPREHENSIVE METABOLIC PANEL Sodium [Moles/volume] in Serum or Plasma 139 mEq/L 134 - 153 [facility] Potassium [Moles/volume] in Serum or Plasma 4.6 mEq/L 3.6 - 5.0 [facility] Chloride [Moles/volume] in Serum or Plasma 97 mEq/L 98 - 107 L [facility] Carbon dioxide, total [Moles/volume] in Serum or Plasma 28 MEQ/L 22 - 30 [facility] Glucose [Mass/volume] in Serum or Plasma 122 MG/DL 65 - 110 H [facility] BUN 24 MG/DL 7 - 21 H [facility] al Creatinine [Mass/volume] in Serum or Plasma 1.2 MG/DL 0.7 - 1.5 [facility] BUN/CREAT 20 8 - 27 [facility] al Protein [Mass/volume] in Serum or Plasma 7.8 G/DL 6.3 - 8.2 [facility] Albumin [Mass/volume] in Serum or Plasma 4.3 G/DL 3.9 - 5.0 [facility] Globulin [Mass/volume] in Serum by calculation 3.5 GM/DL 2.4 - 3.2 H [facility] A/G RATIO 1.2 0.8 - 2.0 [facility] Calcium [Mass/volume] in Serum or Plasma 9.9 MG/DL 8.4 - 10.2 [facility] Bilirubin.total [Mass/volume] in Serum or Plasma <0.7 MG/DL 0.2 - 1.3 [facility] Alkaline phosphatase [Enzymatic activity/volume] in Serum or Plasma 120 U/L 38 - 126 [facility] Aspartate aminotransferase [Enzymatic activity/volume] in Serum or Plasma 26 U/L 5 - 40 [facility] Alanine aminotransferase [Enzymatic activity/volume] in Seru m or Plasma 18 U/L 7 - 56 [facility] Anion gap 3 in Serum or Plasma 14.0 mmol/L 8.0 - 16.0 [facility] AGE 58 yrs [facility] al NON-AA GFR >60 mL/min [facility] ital AFR AMER GFR >60 mL/min [facility] Male GFR In terprentation 20-49 yrs >60 mL/min Normal 50-59 yrs >56 mL/min Normal 60-69 yrs >49 mL/min Normal 70-79yrs >42 mL/min Normal 80 and above >35 mL/min Normal Female GFR Interpretation 20-39 yrs >60 mL/min Normal 40-49 yrs >58 mL/min Normal 50-59 yrs >51 mL/min Normal 60-69 yrs >45 mL/min Normal 70-79 yrs >39 mL/min Normal 80 and above >32 mL/min Normal ID Date Data Source [id number] 10/09/2019 08:24:00 PM EDT [facility] Name Value Range Interpretation Code Description Data Trini rce(s) Supporting Document(s) TROPONIN T <0.01 NG/ML 0.00 - 0.10 [facility]ital TROPONIN T0.1 ng/ml Recommended as the c linical threshold value forTroponin T. ID Date Data Source [id number] 10/09/2019 08:24:00 PM EDT [facility] Name Value Range Interpretation Code Description Data Trini rce(s) Supporting Document(s) BNP 135 PG/ML 0 - 125 H [facility] ID Date Data Source [id number] 09/28/2019 09:10:00 AM EDT [facility] ([facility] ) Name Value Range Interpretation Code Description Data Trini rce(s) Supporting Document(s) Phenytoin [Mass/volume] in Serum or Plasma 22.2 UG/ML 10.0-20.0 [facility] ([facility] ) <content>note:<nlbl:demographic_changed> </content>
<content></content> ID Date Data Source [id number] 09/08/2019 09:00:00 AM EDT [facility] ([facility] ) Name Value Range Interpretation Code Description Data Trini rce(s) Supporting Document(s) Aspartate aminotransferase [Enzymatic activity/volume] in Serum or Plasma 16 U/L 7-37 [facility] ([facility], ) <content>note:<nlbl:demographic_changed> </content>
<content></content> Phenobarbital [Mass/volume] in Serum or Plasma 29.1 UG/ML 15.0-40.0 [facility] ([facility] ) <content>note:<nlbl:demographic_changed> </content>
<content></content> Alanine aminotransferase [Enzymatic activity/volume] in Seru m or Plasma 25 U/L 12-78 [facility] ([facility] ) <content>note:<nlbl:demographic_changed> </content>
<content></content> Phenytoin [Mass/volume] in Serum or Plasma 8.8 UG/ML 10.0-20.0 [facility] ([facility] ) <content>note:<nlbl:demographic_changed> </content>
<content></content> Levetiracetam [Mass/volume] in Serum or Plasma 20.7 ug/mL 10.0-40.0 [facility] ([facility] ) This test was developed and its performa nce characteristics determined by [facility]. It has not been cleared or approved by the Food and Drug Administration. Performed at: [address] [id number] [address] [employer] Professor: Seng Nichols MD, Phone: [phone] ID Date Data Source [id number] 09/08/2019 09:00:00 AM EDT [facility] ([facility]) Name Value Range Interpretation Code Description Data Trini rce(s) Supporting Document(s) White Blood Count 6.3 10 4.0-10.0 [facility] ([facility]) Red Blood Count 4.71 10 4.30-6.10 [facility] ([facility]) Hemoglobin 13.5 g/dL 13.5-17.5 [facility] ([facility]) Mean Corpuscular Hemoglobin 28.7 pg 27.0-33.0 [facility] ([facility]) Hematocrit 41.9 % 42.0-52.0 [facility] ([facility]) Mean Corpuscular Volume 89.0 fl 80.0-96.0 M [facility] ([facility]) Red Cell Distribution Width 14.2 % 11.5-14.5 [facility] ([facility]) Mean Corpuscular HGB Conc 32.2 g/dL 32.0-36.5 [facility] ([facility]) Neutrophils % 55.6 % 36.0-66.0 [facility] ([facility]) Platelet Count, Automated 221 10 150-450 [facility] ([facility]) Lymph % 28.6 % 24.0-44.0 [facility] ([facility]) [place] % 13.0 % 0.0-5.0 [facility] ([facility]) Baso % 0.3 % 0.0-1.0 [facility] ([facility]) Eos % 2.2 % 0.0-3.0 [facility] ([facility]) Nucleated Red Blood Cell % 0.0 % 0-0 [facility] ([facility]) Immature Granulocyte % 0.3 % 0-3.0 [facility] ([facility]) Neutrophils # 3.5 10 1.5-8.5 [facility] ([facility]) Lymph # 1.8 10 1.5-5.0 [facility] ([facility]) [place] # 0.8 10 0.0-0.8 [facility] ([facility] Eos # 0.1 10 0.0-0.5 [facility] ([facility]) Baso # 0.0 10 0.0-0.2 [facility] ([facility]) ID Date Data Source UA URINALYSIS 08/15/2019 05:58:00 AM EDT eCW1 ([facility]) Name Value Range Interpretation Code Description Data Trini rce(s) Supporting Document(s) UA URINALYSIS eCW1 ([facility]) ID Date Data Source URINE CULTURE 08/15/2019 05:57:27 AM EDT eCW1 ([facility]) Name Value Range Interpretation Code Description Data Trini rce(s) Supporting Document(s) URINE CULTURE eCW1 ([facility]) ID Date Data Source Chest X-ray PA and lateral 08/12/2019 04:34:35 AM EDT eCW1 ( [facility]) Name Value Range Interpretation Code Description Data Trini rce(s) Supporting Document(s) Chest X-ray PA and lateral eCW 1 ([facility]) ID Date Data Source LIPASE 08/10/2019 05:17:33 AM EDT eCW1 ([facility]) Name Value Range Interpretation Code Description Data Trini rce(s) Supporting Document(s) 57 LIPASE eCW1 ([facility]) ID Date Data Source LACTIC ACID LEVEL, LACTATE 08/10/2019 05:17:07 AM EDT eCW1 ( [facility]) Name Value Range Interpretation Code Description Data Trini rce(s) Supporting Document(s) LACTIC ACID LEVEL, LACTATE eCW 1 ([facility]) ID Date Data Source [id number] 08/09/2019 07:50:00 AM EDT [facility] ([facility]) Name Value Range Interpretation Code Description Data Trini rce(s) Supporting Document(s) Phenytoin [Mass/volume] in Serum or Plasma 8.2 UG/ML 10.0-20.0 [facility] ([facility]) <content>note:<nlbl:demographic_changed> </content>
<content></content> ID Date Data Source Coronavirus 2019 Nasopharygeal (Send Out) COVID 07/01/2019 1 2:00:00 AM EDT eCW1 ([facility]) Name Value Range Interpretation Code Description Data Trini rce(s) Supporting Document(s) Testing was performed using the slava(R) SARS-CoV-[address] CORONAVIRUS 2019 NASOPHARYGEAL eCW1 ([facility]) ID Date Data Source PROCALCITONIN 07/01/2019 12:00:00 AM EDT eCW1 ([facility]) Name Value Range Interpretation Code Description Data Trini rce(s) Supporting Document(s) 0.[address] [facility] ([facility]) ID Date Data Source RESPIRATORY PANEL 07/01/2019 12:00:00 AM EDT eCW1 ([facility]) Name Value Range Interpretation Code Description Data Trini rce(s) Supporting Document(s) This respiratory PCR panel detects Influenza A H1, H3 and RESPIRATORY PANEL eCW1 ([facility]) ID Date Data Source Rapid Flu ([place] Influenza A+B HERNANDEZ) 07/01/2019 12:00:00 AM E DT eCW1 ([facility]) Name Value Range Interpretation Code Description Data Trini rce(s) Supporting Document(s) Pos Result B (Positive/Negative) e CW1 ([facility]) Neg Result A (Positive/Negative) e CW1 ([facility]) Yes Internal Controls Perform ed (Y/N) eCW1 ([facility]) ID Date Data Source [id number] 03/15/2019 09:25:00 AM EST [facility] ([facility]) Name Value Range Interpretation Code Description Data Trini rce(s) Supporting Document(s) Phenytoin [Mass/volume] in Serum or Plasma 8.7 UG/ML 10.0-20.0 [facility] ([facility]) <content>note:<nlbl:demographic_changed> </content>
<content></content> Phenobarbital [Mass/volume] in Serum or Plasma 29.0 UG/ML 15.0-40.0 [facility] ([facility]) <content>note:<nlbl:demographic_changed> </content>
<content></content> Levetiracetam [Mass/volume] in Serum or Plasma 12.4 ug/mL 10.0-40.0 [facility] ([facility] ) This test was developed and its performa nce characteristics determined by [facility]. It has not been cleared or approved by the Food and Drug Administration. Performed at: [facility] [id number] [address] [employer] Professor: Seng Nichols MD, Phone: [phone] ID Date Data Source PTH INTACT 03/15/2019 12:00:00 AM EST eCW1 ([facility]) Name Value Range Interpretation Code Description Data Trini rce(s) Supporting Document(s) 23.1 18.5-88.0 PTH INTACT [facility]1 ([facility]) ID Date Data Source VITAMIN D 25-HYDROXY 03/15/2019 12:00:00 AM EST eCW1 ([facility]) Name Value Range Interpretation Code Description Data Trini rce(s) Supporting Document(s) 81.9 30.0-100.0 TOTAL 25(OH) VITAMIN D eC W1 ([facility]) Procedure Social History Code Duration Value Status Description Data Source(s ) Smoking 01/20/2020 12:00:00 AM EST Never Smoker completed Never S moker eCW1 ([facility]) Smoking 01/20/2020 12:00:00 AM EST Never Smoker completed Never S moker eCW1 ([facility]) Smoking 01/20/2020 12:00:00 AM EST Never Smoker completed Never S moker eCW1 ([facility]) Smoking 01/20/2020 12:00:00 AM EST Never Smoker completed Never S moker eCW1 ([facility]) Smoking 01/20/2020 12:00:00 AM EST Never Smoker completed Never S moker eCW1 ([facility]) Smoking 01/20/2020 12:00:00 AM EST Never Smoker completed Never S moker eCW1 ([facility]) Smoking 01/20/2020 12:00:00 AM EST Never Smoker completed Never S moker eCW1 ([facility]) Smoking 01/20/2020 12:00:00 AM EST Never Smoker completed Never S moker eCW1 ([facility]) Smoking 01/03/2020 12:00:00 AM EST Never Smoker completed Never S moker eCW1 ([facility]) Smoking 01/03/2020 12:00:00 AM EST Never Smoker completed Never S moker eCW1 (Formerly [facility]) Smoking 12/01/2019 12:00:00 AM EDT Never Smoker completed Never S moker eCW1 (Formerly [facility]) Smoking 12/01/2019 12:00:00 AM EDT Never Smoker completed Never S moker eCW1 (Formerly [facility]) Smoking 12/01/2019 12:00:00 AM EDT Never Smoker completed Never S moker eCW1 (Formerly [facility]) Smoking 12/01/2019 12:00:00 AM EDT Never Smoker completed Never S moker eCW1 (Formerly [facility]) Smoking 12/01/2019 12:00:00 AM EDT Never Smoker completed Never S moker eCW1 (Formerly [facility]) Smoking 12/01/2019 12:00:00 AM EDT Never Smoker completed Never S moker eCW1 (Formerly [facility]) Smoking 12/01/2019 12:00:00 AM EDT Never Smoker completed Never S moker eCW1 (Formerly [facility]) Smoking 12/01/2019 12:00:00 AM EDT Never Smoker completed Never S moker eCW1 (Formerly [facility]) Smoking 12/01/2019 12:00:00 AM EDT Never Smoker completed Never S moker eCW1 ([facility]ly [facility]) Smoking 12/01/2019 12:00:00 AM EDT Never Smoker completed Never S moker eCW1 ([facility]ly [facility]) Smoking 12/01/2019 12:00:00 AM EDT Never Smoker completed Never S moker eCW1 ([facility]ly [facility]) Smoking 12/01/2019 12:00:00 AM EDT Never Smoker completed Never S moker eCW1 ([facility]ly [facility]) Smoking 08/10/2019 12:00:00 AM EDT Never Smoker completed Never S moker eCW1 ([facility]ly [facility]) Smoking 08/10/2019 12:00:00 AM EDT Never Smoker completed Never S moker eCW1 ([facility]ly [facility]) Smoking 08/10/2019 12:00:00 AM EDT Never Smoker completed Never S moker eCW1 ([facility]ly [facility]) Smoking 08/10/2019 12:00:00 AM EDT Never Smoker completed Never S moker eCW1 ([facility]ly [facility]) Smoking 08/10/2019 12:00:00 AM EDT Never Smoker completed Never S moker eCW1 ([facility]ly [facility]) Smoking 08/10/2019 12:00:00 AM EDT Never Smoker completed Never S moker eCW1 ([facility]ly [facility]) Smoking 08/10/2019 12:00:00 AM EDT Never Smoker completed Never S moker eCW1 ([facility]ly [facility]) Smoking 07/26/2019 12:00:00 AM EDT Never Smoker completed Never S moker eCW1 ([facility]ly [facility]) Smoking 07/26/2019 12:00:00 AM EDT Never Smoker completed Never S moker eCW1 ([facility]ly [facility]) Smoking 07/26/2019 12:00:00 AM EDT Never Smoker completed Never S moker eCW1 ([facility]ly [facility]) Smoking 07/26/2019 12:00:00 AM EDT Never Smoker completed Never S moker eCW1 ([facility]ly [facility]) Smoking 07/26/2019 12:00:00 AM EDT Never Smoker completed Never S moker eCW1 ([facility]ly [facility]) Smoking 07/26/2019 12:00:00 AM EDT Never Smoker completed Never S moker eCW1 ([facility]ly [facility]) Smoking 07/26/2019 12:00:00 AM EDT Never Smoker completed Never S moker eCW1 (Formerly [facility]) Vital Signs ID Date Data Source UNK Name Value Range Interpretation Code Description Data Source(s) Diastolic blood pressure 75 mm[Hg] 75 mm[Hg] eCW1 ([facility]) Systolic blood pressure 123 mm[Hg] 123 mm[Hg] e CW1 ([facility]) Respiratory rate 18 /min 18 /min eCW1 ([facility]) Heart rate 82 /min 82 /min eCW1 ([facility]) Body mass index (BMI) [Ratio] 25.05 kg/m2 25.05 kg/m2 eCW1 ([facility]) Body height 62 [in_i] 62 [in_i] eCW1 ([facility]) Body weight 137 [lb_av] 137 [lb_av] eCW1 ([facility]) Diastolic blood pressure 78 mm[Hg] 78 mm[Hg] eCW1 ([facility]) Systolic blood pressure 128 mm[Hg] 128 mm[Hg] e CW1 ([facility]) Body temperature 97.2 [degF] 97.2 [degF] eCW1 ( [facility]) Respiratory rate 18 /min 18 /min eCW1 ([facility]) Heart rate 93 /min 93 /min eCW1 ([facility]) Body mass index (BMI) [Ratio] 25.49 kg/m2 25.49 kg/m2 eCW1 ([facility]) Body height 62 [in_i] 62 [in_i] eCW1 ([facility]) Body weight 139.4 [lb_av] 139.4 [lb_av] eCW1 ([facility]) Body mass index (BMI) [Ratio] 30.2 kg/m2 30.2 k g/m2 MEDENT ([facility] Body weight 144.38 [lb_av] 144.38 [lb_av] MEDEN T ([facility] Body height 58 [in_i] 58 [in_i] MEDENT ([facility] 4'10" Diastolic blood pressure 74 mm[Hg] 74 mm[Hg] eCW1 ([facility]) Systolic blood pressure 114 mm[Hg] 114 mm[Hg] e CW1 ([facility]) Body temperature 98.9 [degF] 98.9 [degF] eCW1 ( [facility]) Respiratory rate 18 /min 18 /min eCW1 ([facility]) Heart rate 90 /min 90 /min eCW1 ([facility]) Body mass index (BMI) [Ratio] 25.05 kg/m2 25.05 kg/m2 eCW1 ([facility]) Body height 62 [in_i] 62 [in_i] eCW1 ([facility]) Body weight 137 [lb_av] 137 [lb_av] eCW1 ([facility]) Body temperature 98.3 [degF] 98.3 [degF] eCW1 ( [facility]) Respiratory rate 18 /min 18 /min eCW1 ([facility]) Heart rate 88 /min 88 /min eCW1 ([facility]) Body mass index (BMI) [Ratio] 25.05 kg/m2 25.05 kg/m2 eCW1 ([facility]) Body height 62 [in_i] 62 [in_i] eCW1 ([facility]) Body weight 137 [lb_av] 137 [lb_av] eCW1 ([facility]) Body temperature 98.3 [degF] 98.3 [degF] eCW1 ( [facility]) Respiratory rate 18 /min 18 /min eCW1 ([facility]) Heart rate 88 /min 88 /min eCW1 ([facility]) Body mass index (BMI) [Ratio] 25.05 kg/m2 25.05 kg/m2 eCW1 ([facility]) Body height 62 [in_i] 62 [in_i] eCW1 ([facility]) Body weight 137 [lb_av] 137 [lb_av] eCW1 ([facility]) Body temperature 100.6 [degF] 100.6 [degF] eCW1 ([facility]) Respiratory rate 22 /min 22 /min eCW1 ([facility]) Body mass index (BMI) [Ratio] 25.91 kg/m2 25.91 kg/m2 eCW1 ([facility]) Body height 62 [in_us] 62 [in_us] eCW1 ([facility]) Body weight Measured 141.7 [lb_av] 141.7 [lb_av ] eCW1 ([facility]) Body weight 141.00 [lb_av] 141.00 [lb_av] MEDEN T ([facility]) Body temperature 95.9 [degF] 95.9 [degF] MEDENT ([facility]) Oxygen saturation in Arterial blood by Pulse oximetry 98 % 98 % MEDENT ([facility]) Respiratory rate 16 /min 16 /min MEDENT ( [facility]) Heart rate 83 /min 83 /min MEDENT ([facility]) Diastolic blood pressure 80 mm[Hg] 80 mm[Hg] eCW1 ([facility]) Systolic blood pressure 124 mm[Hg] 124 mm[Hg] e CW1 ([facility]) Body temperature 99.7 [degF] 99.7 [degF] eCW1 ( [facility]) Respiratory rate 18 /min 18 /min eCW1 ([facility]) Heart rate 104 /min 104 /min eCW1 ([facility]) Body mass index (BMI) [Ratio] 25.05 kg/m2 25.05 kg/m2 eCW1 ([facility]) Body height 62 [in_us] 62 [in_us] eCW1 ([facility]) Body weight Measured 137 [lb_av] 137 [lb_av] eC W1 ([facility]) Respiratory rate 16 /min 16 /min MEDENT ( [facility]) Heart rate 72 /min 72 /min MEDENT ([facility]) Diastolic blood pressure 70 mm[Hg] 70 mm[Hg] MEDENT ([facility]) Systolic blood pressure 122 mm[Hg] 122 mm[Hg] M EDENT ([facility]) Diastolic blood pressure 76 mm[Hg] 76 mm[Hg] eCW1 ([facility]) Systolic blood pressure 118 mm[Hg] 118 mm[Hg] e CW1 ([facility]) Body temperature 96.8 [degF] 96.8 [degF] eCW1 ( [facility]) Respiratory rate 18 /min 18 /min eCW1 ([facility]) Heart rate 97 /min 97 /min eCW1 ([facility]) Body mass index (BMI) [Ratio] 25.05 kg/m2 25.05 kg/m2 eCW1 ([facility]) Body height 62 [in_us] 62 [in_us] eCW1 ([facility]) Body weight Measured 137 [lb_av] 137 [lb_av] eC W1 ([facility]) Diastolic blood pressure 72 mm[Hg] 72 mm[Hg] eCW1 ([facility]) Systolic blood pressure 118 mm[Hg] 118 mm[Hg] e CW1 ([facility]) Body temperature 98.2 [degF] 98.2 [degF] eCW1 ( [facility]) Respiratory rate 20 /min 20 /min eCW1 ([facility]) Heart rate 93 /min 93 /min eCW1 ([facility]) Body mass index (BMI) [Ratio] 25.53 kg/m2 25.53 kg/m2 eCW1 ([facility]) Body height 62 [in_us] 62 [in_us] eCW1 ([facility]) Body weight Measured 139.6 [lb_av] 139.6 [lb_av ] eCW1 ([facility]) ID Date Data Source [id number] 10/27/2019 08:43:21 AM EDT [facility] Name Value Range Interpretation Code Description Data Source(s) WEIGHT RECORDED 146.60 pounds 146.60 pounds [facility] WEIGHT RECORDED 146.70 pounds 146.70 pounds [facility] Patient Treatment Plan of Care Planned Activity Planned Date Details Description Data Source (s[facility] 12/16/2019 12:00:00 AM EDT eCW1 ([facility]) montelukast 10 MG Oral Tablet 12/16/2019 12:00:00 AM EDT eCW1 ([facility]) montelukast 10 MG Oral Tablet 12/16/2019 12:00:00 AM EDT eCW1 ([facility]) montelukast 10 MG Oral Tablet 12/16/2019 12:00:00 AM EDT eCW1 ([facility]) montelukast 10 MG Oral Tablet 12/16/2019 12:00:00 AM EDT eCW1 ([facility]) montelukast 10 MG Oral Tablet 12/16/2019 12:00:00 AM EDT eCW1 ([facility]) montelukast 10 MG Oral Tablet 12/16/2019 12:00:00 AM EDT eCW1 ([facility]) montelukast 10 MG Oral Tablet 12/16/2019 12:00:00 AM EDT eCW1 ([facility]) montelukast 10 MG Oral Tablet 12/16/2019 12:00:00 AM EDT eCW1 ([facility]) zoledronic acid 0.05 MG/ML Injectable Solution [Reclas t] 12/06/2019 12:00:00 AM EDT eCW1 ([facility]) zoledronic acid 0.05 MG/ML Injectable Solution [Reclas t] 12/06/2019 12:00:00 AM EDT eCW1 ([facility]) zoledronic acid 0.05 MG/ML Injectable Solution [Reclas t] 12/06/2019 12:00:00 AM EDT eCW1 ([facility]) zoledronic acid 0.05 MG/ML Injectable Solution [Reclas t] 12/06/2019 12:00:00 AM EDT eCW1 ([facility]) zoledronic acid 0.05 MG/ML Injectable Solution [Reclas t] 12/06/2019 12:00:00 AM EDT eCW1 ([facility]) zoledronic acid 0.05 MG/ML Injectable Solution [Reclas t] 12/06/2019 12:00:00 AM EDT eCW1 ([facility]) zoledronic acid 0.05 MG/ML Injectable Solution [Reclas t] 12/06/2019 12:00:00 AM EDT eCW1 ([facility]) zoledronic acid 0.05 MG/ML Injectable Solution [Reclas t] 12/06/2019 12:00:00 AM EDT eCW1 ([facility]) zoledronic acid 0.05 MG/ML Injectable Solution [Reclas t] 12/06/2019 12:00:00 AM EDT eCW1 ([facility]) zoledronic acid 0.05 MG/ML Injectable Solution [Reclas t] 12/06/2019 12:00:00 AM EDT eCW1 ([facility]) zoledronic acid 0.05 MG/ML Injectable Solution [Reclas t] 12/06/2019 12:00:00 AM EDT eCW1 ([facility]) zoledronic acid 0.05 MG/ML Injectable Solution [Reclas t] 12/06/2019 12:00:00 AM EDT eCW1 ([facility]) zoledronic acid 0.05 MG/ML Injectable Solution [Reclas t] 12/06/2019 12:00:00 AM EDT eCW1 ([facility]) zoledronic acid 0.05 MG/ML Injectable Solution [Reclas t] 12/06/2019 12:00:00 AM EDT eCW1 ([facility]) Flonase Allergy Relief 50 MCG/ACT 12/02/2019 12:00:00 AM EDT eCW1 ([facility]) Flonase Allergy Relief 50 MCG/ACT 12/02/2019 12:00:00 AM EDT eCW1 ([facility]) Flonase Allergy Relief 50 MCG/ACT 12/02/2019 12:00:00 AM EDT eCW1 ([facility]) Flonase Allergy Relief 50 MCG/ACT 12/02/2019 12:00:00 AM EDT eCW1 ([facility]) Flonase Allergy Relief 50 MCG/ACT 12/02/2019 12:00:00 AM EDT eCW1 ([facility]) Flonase Allergy Relief 50 MCG/ACT 12/02/2019 12:00:00 AM EDT eCW1 ([facility]) Flonase Allergy Relief 50 MCG/ACT 12/02/2019 12:00:00 AM EDT eCW1 ([facility]) Flonase Allergy Relief 50 MCG/ACT 12/02/2019 12:00:00 AM EDT eCW1 ([facility]) Flonase Allergy Relief 50 MCG/ACT 12/02/2019 12:00:00 AM EDT eCW1 ([facility]) Flonase Allergy Relief 50 MCG/ACT 12/02/2019 12:00:00 AM EDT eCW1 ([facility]) Flonase Allergy Relief 50 MCG/ACT 12/02/2019 12:00:00 AM EDT eCW1 ([facility]) Flonase Allergy Relief 50 MCG/ACT 12/02/2019 12:00:00 AM EDT eCW1 ([facility]) Flonase Allergy Relief 50 MCG/ACT 12/02/2019 12:00:00 AM EDT eCW1 ([facility]) Flonase Allergy Relief 50 MCG/ACT 12/02/2019 12:00:00 AM EDT eCW1 ([facility]) Flonase Allergy Relief 50 MCG/ACT 12/02/2019 12:00:00 AM EDT eCW1 ([facility]) Flonase Allergy Relief 50 MCG/ACT 12/02/2019 12:00:00 AM EDT eCW1 ([facility]) Flonase Allergy Relief 50 MCG/ACT 12/02/2019 12:00:00 AM EDT eCW1 ([facility]) Flonase Allergy Relief 50 MCG/ACT 12/02/2019 12:00:00 AM EDT eCW1 ([facility]) Flonase Allergy Relief 50 MCG/ACT 12/02/2019 12:00:00 AM EDT eCW1 ([facility]) Flonase Allergy Relief 50 MCG/ACT 12/02/2019 12:00:00 AM EDT eCW1 ([facility]) Flonase Allergy Relief 50 MCG/ACT 12/02/2019 12:00:00 AM EDT eCW1 ([facility]) Flonase Allergy Relief 50 MCG/ACT 12/02/2019 12:00:00 AM EDT eCW1 ([facility]) [employer] [employer] 14FR/20CM 1 11/25/2019 12:00:00 AM EDT eCW1 ([facility]) Sodium Phosphate, Dibasic 59.3 MG/ML / S odium Phosphate, Monobasic 161 MG/ML Enema 11/25/2019 12:00:00 AM EDT eCW1 ([facility]) Bisacodyl 10 MG Rectal Suppository 11/25/2019 12:00:00 AM EDT eCW1 ([facility]) May Have - 11/25/2019 12:00:00 AM EDT e CW1 ([facility]) [employer] [employer] 14FR/20CM 1 11/25/2019 12:00:00 AM EDT eCW1 ([facility]) Sodium Phosphate, Dibasic 59.3 MG/ML / S odium Phosphate, Monobasic 161 MG/ML Enema 11/25/2019 12:00:00 AM EDT eCW1 ([facility]) Bisacodyl 10 MG Rectal Suppository 11/25/2019 12:00:00 AM EDT eCW1 ([facility]) May Have - 11/25/2019 12:00:00 AM EDT e CW1 ([facility]) [employer] [employer] 14FR/20CM 1 11/25/2019 12:00:00 AM EDT eCW1 ([facility]) Sodium Phosphate, Dibasic 59.3 MG/ML / S odium Phosphate, Monobasic 161 MG/ML Enema 11/25/2019 12:00:00 AM EDT eCW1 ([facility]) Bisacodyl 10 MG Rectal Suppository 11/25/2019 12:00:00 AM EDT eCW1 ([facility]) May Have - 11/25/2019 12:00:00 AM EDT e CW1 ([facility]) [employer] [employer] 14FR/20CM 1 11/25/2019 12:00:00 AM EDT eCW1 ([facility]) Sodium Phosphate, Dibasic 59.3 MG/ML / S odium Phosphate, Monobasic 161 MG/ML Enema 11/25/2019 12:00:00 AM EDT eCW1 ([facility]) Bisacodyl 10 MG Rectal Suppository 11/25/2019 12:00:00 AM EDT eCW1 ([facility]) June Have - 11/25/2019 12:00:00 AM EDT e CW1 ([facility]) NITROFURANTOIN, MACROCRYSTALS 25 MG / Ni trofurantoin, Monohydrate 75 MG Oral Capsule 08/15/2019 12:00:00 AM EDT eCW1 ([facility]) NITROFURANTOIN, MACROCRYSTALS 25 MG / Ni trofurantoin, Monohydrate 75 MG Oral Capsule 08/15/2019 12:00:00 AM EDT eCW1 ([facility]) NITROFURANTOIN, MACROCRYSTALS 25 MG / Ni trofurantoin, Monohydrate 75 MG Oral Capsule 08/15/2019 12:00:00 AM EDT eCW1 ([facility]) NITROFURANTOIN, MACROCRYSTALS 25 MG / Ni trofurantoin, Monohydrate 75 MG Oral Capsule 08/15/2019 12:00:00 AM EDT eCW1 ([facility]) NITROFURANTOIN, MACROCRYSTALS 25 MG / Ni trofurantoin, Monohydrate 75 MG Oral Capsule 08/15/2019 12:00:00 AM EDT eCW1 ([facility]) NITROFURANTOIN, MACROCRYSTALS 25 MG / Ni trofurantoin, Monohydrate 75 MG Oral Capsule 08/15/2019 12:00:00 AM EDT eCW1 ([facility]) NITROFURANTOIN, MACROCRYSTALS 25 MG / Ni trofurantoin, Monohydrate 75 MG Oral Capsule 08/15/2019 12:00:00 AM EDT eCW1 ([facility]) Chlorthalidone 25 MG Oral Tablet 07/26/2019 12:00:00 AM EDT eCW1 ([facility]) Chlorthalidone 25 MG Oral Tablet 07/26/2019 12:00:00 AM EDT eCW1 ([facility]) Chlorthalidone 25 MG Oral Tablet 07/26/2019 12:00:00 AM EDT eCW1 ([facility]) Chlorthalidone 25 MG Oral Tablet 07/26/2019 12:00:00 AM EDT eCW1 ([facility]) Chlorthalidone 25 MG Oral Tablet 07/26/2019 12:00:00 AM EDT eCW1 ([facility]) Chlorthalidone 25 MG Oral Tablet 07/26/2019 12:00:00 AM EDT eCW1 ([facility]) Chlorthalidone 25 MG Oral Tablet 07/26/2019 12:00:00 AM EDT eCW1 ([facility]) May Have - 07/14/2019 12:00:00 AM EDT e CW1 ([facility]) Oseltamivir 75 MG Oral Capsule 07/01/2019 12:00:00 AM EDT eCW1 ([facility]) Wheelchair _ 03/18/2019 12:00:00 AM EST e CW1 ([facility]) Cephalexin 500 MG Oral Capsule [Keflex] 01/11/2019 12:00:00 AM EST eCW1 ([facility]) Triamcinolone Acetonide 1 MG/ML Topical Cream eCW1 ([facility]) Triamcinolone Acetonide 1 MG/ML Topical Cream eCW1 ([facility])
--- NOTE | 2020-03-05 15:18 | REP ---
INDICATION: abd distension. COMPARISON: Comparison chest x-ray 01/17/2020.. TECHNIQUE: Supine AP view of the chest, supine AP view of the abdomen, and supine cross-table lateral view of the abdomen are presented. One of the patient's elbows overlies the mid abdomen on the cross-table view. FINDINGS: Chest radiograph shows no evidence of infiltrate. Pleural angles are sharp. Cardiomediastinal silhouette is remarkable for some tortuosity and calcification in the aorta. Normal heart size. Supine view of the abdomen shows air and stool in the descending colon. Mild gaseous distention of what appears to be the right colon is seen. There is formed stool filling the rectum and moderate stool in the left colon suggest obstipation. No acute bony abnormality is seen. No mass or organomegaly noted. On a cross-table lateral view there is no evidence of free intraperitoneal air. IMPRESSION: Moderate left colonic and rectal stool question obstipation. No evidence of free air. No active disease in the chest.. <Electronically signed by Jarrell Glynn > 03/05/20 [id number]
[2020-03-05 15:29] LABS: ALBUMIN 4.2 GM/DL (3.2-5.2); ALT/SGPT 31 U/L (12-78); BILIRUBIN,DIRECT < 0.1 MG/DL (0.0-0.2); BILIRUBIN,TOTAL 0.4 MG/DL (0.2-1.0); BLOOD UREA NITROGEN 22 MG/DL (7-18); CARBON DIOXIDE LEVEL 33 MEQ/L (21-32); CHLORIDE LEVEL 102 MEQ/L (98-107); CREATININE FOR GFR 0.97 MG/DL (0.70-1.30); GLOMERULAR FILTRATION RATE > 60.0 (>56); GLUCOSE, FASTING 90 MG/DL (70-100); POTASSIUM SERUM 5.5 MEQ/L (3.5-5.1); SODIUM LEVEL 141 MEQ/L (136-145); TOTAL PROTEIN 9.2 GM/DL (6.4-8.2)
[2020-03-05 15:31] LABS: PHENYTOIN (DILANTIN) 44.2 UG/ML (10.0-20.0)
[2020-03-05] MEDS ORDERED: ASPI81TA26 PO (20:47)
[2020-03-05] MEDS ORDERED: MONT10TA10 PO (20:47)
[2020-03-05] MEDS ORDERED: PERI12LIQ PO (20:47)
--- NOTE | 2020-03-05 21:37 | HPEPDOC ---
General Date of Admission Date of Service: Mar 05, 2020 Primary Care Physician: Ash Vences M.D. Attending Physician: Wade Natarajan MD Chief Complaint The patient is a 59-year-old male admitted with a reason for visit of obstipation. Source: RN/MD, [facility] Caregiver/Aid History of Present Illness Mr. Mondragon is a [facility] client and is seen in the ER with a [facility] staff member. They report he's had a 1-2 day history of the listlessness and a decrease interest in food or drink. Yesterday he "had a bowel movement the size of the baby - very large." They thought maybe this would improve his appetite and energy levels but it did not. So they brought him to the ER for further evaluation. Home Medications Scheduled Amlodipine Besylate (Amlodipine Besylate) 2.5 Mg Tablet, 1 TAB PO QHS, (Reported) Aspirin (Aspirin EC) 81 Mg Tablet.dr, 81 MG PO DAILY, (Reported) Baclofen (Baclofen) 10 Mg Tablet, 1 TAB PO BID, (Reported) QAM, 1600 Calcium Carbonate/Vitamin D3 (Calcium 600-Vit D3 400 Tablet) 1 Tab Tab, 1 TAB PO BID, (Reported) QAM, 1600 Chlorhexidine Gluconate (Chlorhexidine Gluconate) 473 Ml Mouthwash, 15 ML PO BID, (Reported) SWISH FOR 30 SECONDS THEN SPIT Cholecalciferol (Vitamin D3) (Vitamin D3) 50 Mcg Capsule, 50 MCG PO DAILY, (Reported) Lansoprazole (Lansoprazole) 30 Mg Capsule.dr, 30 MG PO DAILY, (Reported) @ 1600 Levetiracetam (Keppra) 750 Mg Tab, 750 MG PO BID, (Reported) Loratadine (Claritin) 10 Mg Cap, 10 MG PO DAILY, (Reported) Montelukast Sodium (Montelukast Sodium) 10 Mg Tablet, 10 MG PO QHS, (Reported) Multivitamins (Thera M Plus Tablet) 1 Tab Tab, 1 TAB PO DAILY, (Reported) Oxybutynin Chloride (Ditropan Xl) 5 Mg Tab, 5 MG PO DAILY, (Reported) Phenobarbital (Phenobarbital) 32.4 Mg Tab, 32.4 MG PO TID, (Reported) Phenytoin Sodium Extended (Dilantin) 100 Mg Capsule, 100 MG PO DAILY, (Reported) Phenytoin Sodium Extended (Dilantin) 100 Mg Capsule, 200 MG PO QHS, (Reported) Polyethylene Glycol 3350 (Miralax) 119 Gm Powder, 17 GRAM PO DAILY, (Reported) dissolve in water Sennosides (Senna Lax) 8.6 Mg Tablet, 17.2 MG PO QHS, (Reported) Allergies Coded Allergies: No Known Drug Allergies (Verified Allergy, Unknown, 08/13/18) Past Medical History Medical History 1. Cerebral palsy with spastic quadriparesis 2. Severe mental retardation 3. Seizure disorder 4. History of lacunar CVAs 5. Hypertension 6. Osteoporosis 7. GERD 8. Constipation, chronic 9. Vitamin D deficiency 10. 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 11. Dyshidrotic eczema Surgical History 1. Colonoscopy (2013) Family History His father in his 40s of heart disease His mother in her 40s of heart disease Reportedly has 2 brothers that are still living Social History * Smoker: non-smoker Alcohol: Denies A-FIB/CHADSVASC A-FIB History Current/History of A-Fib/PAF?: No Review of Systems Other systems Unobtainable secondary to mental retardation Physical Examination General Exam: Positive: Alert (but he does not acknowledge my presence and the room), No Acute Distress Eye Exam: Positive: PERRLA, Conjunctiva & lids normal ENT Exam: Positive: Atraumatic, Mucous membr. moist/pink Neck Exam: Positive: Supple; Negative: Lymphadenopathy Chest Exam: Positive: Clear to auscultation, Normal air movement Heart Exam: Positive: Rate Normal, Normal S1, Normal S2; Negative: Murmurs Abdomen Exam: Positive: Normal bowel sounds, Other (his abdomen is palpably potts on the left side than the right. Overall his abdomen is distended but not tympanitic); Negative: Tenderness Extremity Exam: Negative: Edema Skin Exam: Negative: Rash Neuro Exam: Negative: Normal Speech Psych Exam: Negative: Memory Intact Vital Signs Vital Signs Date Time Temp Pulse Resp B/P (MAP) Pulse Ox O2 Delivery O2 Flow Rate FiO2 03/05/20 21:15 77 18 159/87 (111) 96 Room Air 03/05/20 14:39 98.8 Laboratory Data Labs 24H Laboratory Tests 2 03/05/20 14:29: Immature Granulocyte % (Auto) 0.2, Neutrophils (%) (Auto) 41.5, Lymphocytes (%) (Auto) 40.2, Monocytes (%) (Auto) 16.7H, Eosinophils (%) (Auto) 1.1, Basophils (%) (Auto) 0.3, Neutrophils # (Auto) 2.7, Lymphocytes # (Auto) 2.6, Monocytes # (Auto) 1.1H, Eosinophils # (Auto) 0.1, Basophils # (Auto) 0.0, Nucleated Red Blood Cells % (auto) 0.0, Anion Gap 6L, Glomerular Filtration Rate > 60.0, Ca lcium Level 10.0, Total Bilirubin 0.4, Direct Bilirubin < 0.1, Aspartate Amino Transf (AST/SGOT) 43H, Alanine Aminotransferase (ALT/SGPT) 31, Alkaline Phosphatase 159H, Total Protein 9.2H, Albumin 4.2, Albumin/Globulin Ratio 0.8, Thyroid Stimulating Hormone (TSH) 1.450, Phenytoin (Dilantin) Level 44.2H, Phenobarbital Level 49.0H CBC/BMP Laboratory Tests 03/05/20 14:29 Problems (1) Obstipation Problem Text: This is acute obstipation as a result of his chronic constipation. They tied a tap water enema in the ER but reportedly got no feces to return, seems that everything is higher than his rectum. We'll continue him on MiraLAX. I will admit him and start him on a regimen that includes Senokot S each night and magnesium citrate each morning that he does not have a bowel movement within the last 24 hours. We may try adding enemas to this as well, but lets see how the orals do for now. (2) Seizure disorder Status: Chronic Problem Text: We will have him on seizure precautions while here. Continue his home medications. 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 (4) Severe intellectual disabilities Status: Chronic Problem Text: He lives and is cared for in [facility]. Plan / VTE VTE Prophylaxis Ordered?: Yes (teds/sequentials/Lovenox) Wade Natarajan MD Mar 05, 2020 21:36
[2020-03-05] MEDS ORDERED: MAGNESIUM CITRATE 300 ML BTL PO PRN (21:45)
[2020-03-05] MEDS ORDERED: SENOKOT S TAB PO PRN (21:45)
[2020-03-05] MEDS ORDERED: PANTOPRAZOLE 40MG TAB (PROTONIX) PO ONE (21:45)
[2020-03-05] MEDS ORDERED: ACETAMINOPHEN TAB 650MG DOSE (2X325MG) PO PRN (21:45)
--- OUTSIDE RECORDS SUMMARY | 2020-03-05 22:09 | CCD ---
Author Author [facility] Organization [facility] Address Unknown Phone Unavailable Support Name Relationship Address Phone [facility] RES[facility], STAFF Next Of Kin [facility] SHELTER [address] [place], [place] [id number] RADHA ALMARAZ Next [place] [address] [place] [address] [facility] Next Of Kin [address] [place] [id number] RESIDENT, [facility] Next Of Kin [address] [place], [place] [phone] JAI OSPINA Next Of Kin [id number] [facility] [place] [address] FELICITAS STANLEY Next Of Kin [address] [place] [address] TOSHA EDOUARD Next Of Kin [address] [place] [address] JAY UERNA Next Of Kin [address] [place] [address] NKECHI URENA(NURSE) Next Of Kin [address] [place] [address] NATHANAEL PLAZA Next Of Kin [address] [place] [address] ANTOINETTE CORONEL Next Of Kin [address] [place] [address] UE Next Of Kin Unknown Unavailable DISABLED Next Of Kin Unknown AJAY NUNEZ Next Of Kin [address] [place] [address] RENAN POLLACK Next Of Kin [address] [place] [address] Felicitas Stanley [address] [place] [address] Unavailable Jay Urena [address] [place] [address] Care Team Providers Care Front Office Director Name Role Phone Rory Reilly Unavailable Unavailable Rory Reilly Unavailable Unavailable Rory Reilly Unavailable Unavailable Rory Reilly Unavailable Unavailable RuSteve jon MD Unavailable Unavailable RuSteve jon MD Unavailable Unavailable RuSteve jon MD Unavailable Unavailable RuSteve jon MD Unavailable Unavailable RuSteve jon MD Unavailable Unavailable RuSteve ojn MD Unavailable Unavailable RuSteve jon MD Unavailable [...] is protected by Article 27-F of the [facility] Public Health law. If you continue you may have access to information: Regarding HIV / AIDS; Provided by facilities licensed or operated by the [facility] Office of Mental Health; or Provided by the [facility] Office for People With Developmental Disabilities. If such information is present, then the following [facility] mandated warning applies: This information has been [...] law may result in a fine or fdc sentence or both. A general authorization for the release of medical or other information is NOT sufficient authorization for further disc losure. Allergies and Adverse Reactions Type Description Substance Reaction Status Data Source(s ) No Known Allergies No Known Allergies [facility] Family History Family Member Name Family Member Gender Family Member Status Date o f Status Description Data Source(s) Unknown Unknown Problem MEDENT ([facility]) Encounters Encounter Providers Location Date Indications Data Source(s ) [place] [address] [facility] [address] 02/21/2020 12:00:00 AM EST eCW1 ([facility]) [place] [address] [facility] [address] 02/01/2020 12:00:00 AM EST eCW1 ([facility]) [place] [address] [facility] [address] 02/01/2020 12:00:00 AM EST eCW1 ([facility]) [place] [address] [facility] [address] 01/26/2020 12:00:00 AM EST eCW1 ([facility]) TeleMedicine Est. Pt. Level 5 [address] [place] [address] 01/20/2020 12:00:00 AM EST eCW1 ([facility]) [place] [address] [facility] [address] 01/20/2020 12:00:00 AM EST eCW1 ([facility]) [place] [address] [facility] [address] 01/19/2020 12:00:00 AM EST eCW1 ([facility]) [place] [address] [facility] [address] 01/18/2020 12:00:00 AM EST eCW1 ([facility]) [place] [address] [facility] [address] 01/17/2020 12:00:00 AM EST eCW1 ([facility]) [place] [address] [facility] [address] 01/03/2020 12:00:00 AM EST eCW1 ([facility]) [place] [address] [facility] [place] [address] 12/28/2019 12:00:00 AM EST eCW1 ([facility]) [place] [address] [facility] [address] 12/26/2019 12:00:00 AM EST eCW1 ([facility]) [place] [address] [facility] [address] 12/23/2019 12:00:00 AM EST eCW1 ([facility]) [place] [address] [facility] [address] 12/22/2019 12:00:00 AM EST eCW1 ([facility]) [place] [address] [facility] [place] [address] 12/19/2019 12:00:00 AM EST eCW1 ([facility]) [place] [address] [facility] [address] 12/15/2019 12:00:00 AM EDT eCW1 ([facility]) [place] [address] [facility] [address] 12/14/2019 12:00:00 AM EDT eCW1 ([facility]) [place] [address] [facility] [place] [address] 12/14/2019 12:00:00 AM EDT eCW1 ([facility]) [place] [address] [facility] [place] [address] 12/12/2019 12:00:00 AM EDT eCW1 ([facility]) Unknown [address] [facility] [place] [address] 12/07/2019 12:00:00 AM EDT eCW1 ([facility]) Outpatient Attender: Lakisha Jackson [place] Main office - [facility] 12/06/2019 10:00:00 AM EDT MEDENT ([facility] alma, GHAN[place]YAM) Unknown [address] [facility] Y [address] 12/06/2019 12:00:00 AM EDT eCW1 ([facility]) Outpatient [address] [facility] Y [address] 12/02/2019 12:00:00 AM EDT eCW1 ([facility]) Unknown [address] [facility] Y [address] 11/30/2019 12:00:00 AM EDT [facility]CW1 [facility]) Unknown [address] [facility] [address] 11/29/2019 12:00:00 AM EDT eCW1 [facility]) Unknown [address] [facility] [address] 11/25/2019 12:00:00 AM EDT eCW1 ([facility]) Unknown [address] [facility] [address] 11/24/2019 12:00:00 AM EDT [facility]) Outpatient Attender: CHAVO GRIFFITH [facility] Office 03/2019 10:15:00 AM EDT MEDENT ([facility] [place] [address] [facility] [address] 10/31/2019 12:00:00 AM EDT [facility]CW[facility]) Inpatient Attender: Rory Kam er: REESE LANDERS MDConsultant: Ash Venecs MD 10/10/2019 10:35:00 AM EDT - 10/14/2019 05:35:00 PM EDT [facility] Patient discharged. Outpatient 10/09/2019 07:45:00 PM EDT [facility] Outpatient Attender: Rory GUAN 0 07:15:00 PM EDT - 10/10/2019 10:35:00 AM EDT [facility] Outpatient Attender: Lakisha GUAN [facility] office [facility] 09/01/2019 10:45:00 AM EDT MEDENT ([facility] GHANSHYAM Clarke) Unknown [address] [facility] [address] 08/23/2019 12:00:00 AM EDT [facility]CW1 [facility]) Outpatient [address] [facility] [address] 08/10/2019 12:00:00 AM EDT eCW1 ([facility]) Unknown [address] [facility] Y [address] 08/04/2019 12:00:00 AM EDT eCW1 ([facility]) [place] [address] [facility] [address] 08/03/2019 12:00:00 AM EDT eCW1 ([facility]) [place] [address] [facility] [address] 07/28/2019 12:00:00 AM EDT eCW1 ([facility]) [place] [address] [facility] [address] 07/28/2019 12:00:00 AM EDT eCW1 ([facility]) [place] [address] [facility] [address] 07/27/2019 12:00:00 AM EDT eCW1 ([facility]) Outpatient [address] [facility] [address] 07/26/2019 12:00:00 AM EDT eCW1 ([facility]) Unknown [address] [facility] [address] 07/26/2019 12:00:00 AM EDT eCW1 ([facility]) [facility] [address] [facility] [address] 07/13/2019 12:00:00 AM EDT eCW1 ([facility]) [facility] [address] [facility] [address] 07/08/2019 12:00:00 AM EDT eCW1 ([facility]) [facility] [address] [facility] [address] 07/07/2019 12:00:00 AM EDT eCW1 ([facility]) [facility] [address] [facility] [address] 07/06/2019 12:00:00 AM EDT eCW1 ([facility]) [facility] [address] [facility] [address] 07/05/2019 12:00:00 AM EDT eCW1 ([facility]) [address] [address] 07/05/2019 12:00:00 AM EDT eCW1 ([facility]) [address] [address] 07/04/2019 12:00:00 AM EDT eCW1 ([facility]) [address] [address] 07/01/2019 12:00:00 AM EDT eCW1 ([facility]) [address] [address] 06/30/2019 12:00:00 AM EDT eCW1 ([facility]) [address] [address] 06/20/2019 12:00:00 AM EDT eCW1 ([facility]) Outpatient Attender: Lakisha GUAN [facility] 05/26/2019 09:15:00 AM EDT MEDENT ([facility] ) [address] [address] 05/12/2019 12:00:00 AM EDT eCW1 ([facility]) [address] [address] 04/21/2019 12:00:00 AM EST eCW1 ([facility]) [address] [address] 04/06/2019 12:00:00 AM EST eCW1 ([facility]) [address] [address] 03/18/2019 12:00:00 AM EST eCW1 ([facility]) [address] [address] 03/17/2019 12:00:00 AM EST eCW1 ([facility]) Outpatient Attender: AJ Asher 03/11/2019 11:15:00 AM EST MEDENT ([facility] [address] [address] 03/11/2019 12:00:00 AM EST eCW1 ([facility]) [address] [place] [address] 03/10/2019 12:00:00 AM EST eCW1 ([facility]) Outpatient Attender: Lakisha GUAN Main office - [facility] 02/24/2019 08:15:00 AM EST MEDENT ([facility], ) [address] [address] 02/23/2019 12:00:00 AM EST eCW1 ([facility]) [address] [address] 01/31/2019 12:00:00 AM EST eCW1 ([facility]) [address] [address] 01/28/2019 12:00:00 AM EST eCW1 ([facility]) [address] [address] 01/28/2019 12:00:00 AM EST eCW1 ([facility]) [address] [address] 01/19/2019 12:00:00 AM EST eCW1 ([facility]) [address] [address] 01/17/2019 12:00:00 AM EST eCW1 ([facility]) [address] [address] 01/11/2019 12:00:00 AM EST eCW1 ([facility]) [facility] [address] [facility] [address] 01/10/2019 12:00:00 AM EST eCW1 ([facility]) [facility] [address] [facility] [address] 01/05/2019 12:00:00 AM EST eCW1 ([facility]) Medications Medication Brand Name Start Date Product Form Dose Route Admi nistrative Instructions Pharmacy Instructions Status Indications Reaction Description Data Source(s) montelukast 10 MG Oral Tablet Montelukast Sodium 10 MG Trell lukast Sodium 10 MG 12/16/2019 12:00:00 AM EDT 1.0 {tablet} active Montelukast Sodium 10 MG eCW1 ([facility]) montelukast 10 MG Oral Tablet Montelukast Sodium 10 MG Trell lukast Sodium 10 MG 12/16/2019 12:00:00 AM EDT 1.0 {tablet} active Montelukast Sodium 10 MG eCW1 ([facility]) montelukast 10 MG Oral Tablet Montelukast Sodium 10 MG Trell lukast Sodium 10 MG 12/16/2019 12:00:00 AM EDT 1.0 {tablet} active Montelukast Sodium 10 MG eCW1 ([facility]) montelukast 10 MG Oral Tablet Montelukast Sodium 10 MG Trell lukast Sodium 10 MG 12/16/2019 12:00:00 AM EDT 1.0 {tablet} active Montelukast Sodium 10 MG eCW1 ([facility]) montelukast 10 MG Oral Tablet Montelukast Sodium 10 MG Trell lukast Sodium 10 MG 12/16/2019 12:00:00 AM EDT 1.0 {tablet} active Montelukast Sodium 10 MG eCW1 ([facility]) montelukast 10 MG Oral Tablet Montelukast Sodium 10 MG Trell lukast Sodium 10 MG 12/16/2019 12:00:00 AM EDT 1.0 {tablet} active Montelukast Sodium 10 MG eCW1 ([facility]) montelukast 10 MG Oral Tablet Montelukast Sodium 10 MG Trell lukast Sodium 10 MG 12/16/2019 12:00:00 AM EDT 1.0 {tablet} active Montelukast Sodium 10 MG eCW1 ([facility]) montelukast 10 MG Oral Tablet Montelukast Sodium 10 MG Trell lukast Sodium 10 MG 12/16/2019 12:00:00 AM EDT 1.0 {tablet} active Montelukast Sodium 10 MG eCW1 ([facility]) montelukast 10 MG Oral Tablet Montelukast Sodium 10 MG Trell lukast Sodium 10 MG 12/16/2019 12:00:00 AM EDT 1.0 {tablet} active Montelukast Sodium 10 MG eCW1 ([facility]) montelukast 10 MG Oral Tablet Montelukast Sodium 10 MG Trell lukast Sodium 10 MG 12/16/2019 12:00:00 AM EDT 1.0 {tablet} active Montelukast Sodium 10 MG eCW1 ([facility]) montelukast 10 MG Oral Tablet Montelukast Sodium 10 MG Trell lukast Sodium 10 MG 12/16/2019 12:00:00 AM EDT 1.0 {tablet} active Montelukast Sodium 10 MG eCW1 ([facility]) montelukast 10 MG Oral Tablet Montelukast Sodium 10 MG Trell lukast Sodium 10 MG 12/16/2019 12:00:00 AM EDT 1.0 {tablet} active Montelukast Sodium 10 MG eCW1 ([facility]) montelukast 10 MG Oral Tablet Montelukast Sodium 10 MG Trell lukast Sodium 10 MG 12/16/2019 12:00:00 AM EDT 1.0 {tablet} active Montelukast Sodium 10 MG eCW1 ([facility]) montelukast 10 MG Oral Tablet Montelukast Sodium 10 MG Trell lukast Sodium 10 MG 12/16/2019 12:00:00 AM EDT 1.0 {tablet} active Montelukast Sodium 10 MG eCW1 ([facility]) montelukast 10 MG Oral Tablet Montelukast Sodium 10 MG Trell lukast Sodium 10 MG 12/16/2019 12:00:00 AM EDT 1.0 {tablet} active Montelukast Sodium 10 MG eCW1 ([facility]) montelukast 10 MG Oral Tablet Montelukast Sodium 10 MG Trell lukast Sodium 10 MG 12/16/2019 12:00:00 AM EDT 1.0 {tablet} active Montelukast Sodium 10 MG eCW1 ([facility]) montelukast 10 MG Oral Tablet Montelukast Sodium 10 MG Trell lukast Sodium 10 MG 12/16/2019 12:00:00 AM EDT 1.0 {tablet} active Montelukast Sodium 10 MG eCW1 ([facility]) zoledronic acid 0.05 MG/ML Injectable Solution [Reclas t] Reclast 5 MG/100ML Reclast 5 MG/100ML 12/06/2019 12:00:00 AM EDT active Reclast 5 MG/100ML eCW1 ([facility]) zoledronic acid 0.05 MG/ML Injectable Solution [Reclas t] Reclast 5 MG/100ML Reclast 5 MG/100ML 12/06/2019 12:00:00 AM EDT active Reclast 5 MG/100ML eCW1 ([facility]) zoledronic acid 0.05 MG/ML Injectable Solution [Reclas t] Reclast 5 MG/100ML Reclast 5 MG/100ML 12/06/2019 12:00:00 AM EDT active Reclast 5 MG/100ML eCW1 ([facility]) zoledronic acid 0.05 MG/ML Injectable Solution [Reclas t] Reclast 5 MG/100ML Reclast 5 MG/100ML 12/06/2019 12:00:00 AM EDT active Reclast 5 MG/100ML eCW1 ([facility]) zoledronic acid 0.05 MG/ML Injectable Solution [Reclas t] Reclast 5 MG/100ML Reclast 5 MG/100ML 12/06/2019 12:00:00 AM EDT active Reclast 5 MG/100ML eCW1 ([facility]) zoledronic acid 0.05 MG/ML Injectable Solution [Reclas t] Reclast 5 MG/100ML Reclast 5 MG/100ML 12/06/2019 12:00:00 AM EDT active Reclast 5 MG/100ML eCW1 ([facility]) zoledronic acid 0.05 MG/ML Injectable Solution [Reclas t] Reclast 5 MG/100ML Reclast 5 MG/100ML 12/06/2019 12:00:00 AM EDT active Reclast 5 MG/100ML eCW1 ([facility]) zoledronic acid 0.05 MG/ML Injectable Solution [Reclas t] Reclast 5 MG/100ML Reclast 5 MG/100ML 12/06/2019 12:00:00 AM EDT active Reclast 5 MG/100ML eCW1 ([facility]) zoledronic acid 0.05 MG/ML Injectable Solution [Reclas t] Reclast 5 MG/100ML Reclast 5 MG/100ML 12/06/2019 12:00:00 AM EDT active Reclast 5 MG/100ML eCW1 ([facility]) zoledronic acid 0.05 MG/ML Injectable Solution [Reclas t] Reclast 5 MG/100ML Reclast 5 MG/100ML 12/06/2019 12:00:00 AM EDT active Reclast 5 MG/100ML eCW1 ([facility]) zoledronic acid 0.05 MG/ML Injectable Solution [Reclas t] Reclast 5 MG/100ML Reclast 5 MG/100ML 12/06/2019 12:00:00 AM EDT active Reclast 5 MG/100ML eCW1 ([facility]) zoledronic acid 0.05 MG/ML Injectable Solution [Reclas t] Reclast 5 MG/100ML Reclast 5 MG/100ML 12/06/2019 12:00:00 AM EDT active Reclast 5 MG/100ML eCW1 ([facility]) zoledronic acid 0.05 MG/ML Injectable Solution [Reclas t] Reclast 5 MG/100ML Reclast 5 MG/100ML 12/06/2019 12:00:00 AM EDT active Reclast 5 MG/100ML eCW1 ([facility]) zoledronic acid 0.05 MG/ML Injectable Solution [Reclas t] Reclast 5 MG/100ML Reclast 5 MG/100ML 12/06/2019 12:00:00 AM EDT active Reclast 5 MG/100ML eCW1 ([facility]) Flonase Allergy Relief 50 MCG/ACT Flonase Allergy Relief 50 MCG/ACT 12/02/2019 12:00:00 AM EDT 1.0 {spray_in_each_nostril} acti ve Flonase Allergy Relief 50 MCG/ACT eCW1 ([facility]) Flonase Allergy Relief 50 MCG/ACT Flonase Allergy Relief 50 MCG/ACT 12/02/2019 12:00:00 AM EDT 1.0 {spray_in_each_nostril} acti ve Flonase Allergy Relief 50 MCG/ACT eCW1 ([facility]) Flonase Allergy Relief 50 MCG/ACT Flonase Allergy Relief 50 MCG/ACT 12/02/2019 12:00:00 AM EDT 1.0 {spray_in_each_nostril} acti ve Flonase Allergy Relief 50 MCG/ACT eCW1 ([facility]) Flonase Allergy Relief 50 MCG/ACT Flonase Allergy Relief 50 MCG/ACT 12/02/2019 12:00:00 AM EDT 1.0 {spray_in_each_nostril} acti ve Flonase Allergy Relief 50 MCG/ACT eCW1 ([facility]) Flonase Allergy Relief 50 MCG/ACT Flonase Allergy Relief 50 MCG/ACT 12/02/2019 12:00:00 AM EDT 1.0 {spray_in_each_nostril} acti ve Flonase Allergy Relief 50 MCG/ACT eCW1 ([facility]) Flonase Allergy Relief 50 MCG/ACT Flonase Allergy Relief 50 MCG/ACT 12/02/2019 12:00:00 AM EDT 1.0 {spray_in_each_nostril} acti ve Flonase Allergy Relief 50 MCG/ACT eCW1 ([facility]) Flonase Allergy Relief 50 MCG/ACT Flonase Allergy Relief 50 MCG/ACT 12/02/2019 12:00:00 AM EDT 1.0 {spray_in_each_nostril} acti ve Flonase Allergy Relief 50 MCG/ACT eCW1 ([facility]) Flonase Allergy Relief 50 MCG/ACT Flonase Allergy Relief 50 MCG/ACT 12/02/2019 12:00:00 AM EDT 1.0 {spray_in_each_nostril} acti ve Flonase Allergy Relief 50 MCG/ACT eCW1 ([facility]) Flonase Allergy Relief 50 MCG/ACT Flonase Allergy Relief 50 MCG/ACT 12/02/2019 12:00:00 AM EDT 1.0 {spray_in_each_nostril} acti ve Flonase Allergy Relief 50 MCG/ACT eCW1 ([facility]) Flonase Allergy Relief 50 MCG/ACT Flonase Allergy Relief 50 MCG/ACT 12/02/2019 12:00:00 AM EDT 1.0 {spray_in_each_nostril} acti ve Flonase Allergy Relief 50 MCG/ACT eCW1 ([facility]) Flonase Allergy Relief 50 MCG/ACT Flonase Allergy Relief 50 MCG/ACT 12/02/2019 12:00:00 AM EDT 1.0 {spray_in_each_nostril} acti ve Flonase Allergy Relief 50 MCG/ACT eCW1 ([facility]) Flonase Allergy Relief 50 MCG/ACT Flonase Allergy Relief 50 MCG/ACT 12/02/2019 12:00:00 AM EDT 1.0 {spray_in_each_nostril} acti ve Flonase Allergy Relief 50 MCG/ACT eCW1 ([facility]) Flonase Allergy Relief 50 MCG/ACT Flonase Allergy Relief 50 MCG/ACT 12/02/2019 12:00:00 AM EDT 1.0 {spray_in_each_nostril} acti ve Flonase Allergy Relief 50 MCG/ACT eCW1 ([facility]) Flonase Allergy Relief 50 MCG/ACT Flonase Allergy Relief 50 MCG/ACT 12/02/2019 12:00:00 AM EDT 1.0 {spray_in_each_nostril} acti ve Flonase Allergy Relief 50 MCG/ACT eCW1 ([facility]) Flonase Allergy Relief 50 MCG/ACT Flonase Allergy Relief 50 MCG/ACT 12/02/2019 12:00:00 AM EDT 1.0 {spray_in_each_nostril} acti ve Flonase Allergy Relief 50 MCG/ACT eCW1 ([facility]) Flonase Allergy Relief 50 MCG/ACT Flonase Allergy Relief 50 MCG/ACT 12/02/2019 12:00:00 AM EDT 1.0 {spray_in_each_nostril} acti ve Flonase Allergy Relief 50 MCG/ACT eCW1 ([facility]) Flonase Allergy Relief 50 MCG/ACT Flonase Allergy Relief 50 MCG/ACT 12/02/2019 12:00:00 AM EDT 1.0 {spray_in_each_nostril} acti ve Flonase Allergy Relief 50 MCG/ACT eCW1 ([facility]) Flonase Allergy Relief 50 MCG/ACT Flonase Allergy Relief 50 MCG/ACT 12/02/2019 12:00:00 AM EDT 1.0 {spray_in_each_nostril} acti ve Flonase Allergy Relief 50 MCG/ACT eCW1 ([facility]) Flonase Allergy Relief 50 MCG/ACT Flonase Allergy Relief 50 MCG/ACT 12/02/2019 12:00:00 AM EDT 1.0 {spray_in_each_nostril} acti ve Flonase Allergy Relief 50 MCG/ACT eCW1 ([facility]) Flonase Allergy Relief 50 MCG/ACT Flonase Allergy Relief 50 MCG/ACT 12/02/2019 12:00:00 AM EDT 1.0 {spray_in_each_nostril} acti ve Flonase Allergy Relief 50 MCG/ACT eCW1 ([facility]) Flonase Allergy Relief 50 MCG/ACT Flonase Allergy Relief 50 MCG/ACT 12/02/2019 12:00:00 AM EDT 1.0 {spray_in_each_nostril} acti ve Flonase Allergy Relief 50 MCG/ACT eCW1 ([facility]) Flonase Allergy Relief 50 MCG/ACT Flonase Allergy Relief 50 MCG/ACT 12/02/2019 12:00:00 AM EDT 1.0 {spray_in_each_nostril} acti ve Flonase Allergy Relief 50 MCG/ACT eCW1 ([facility]) May Have - UNK 11/25/2019 12:00:00 AM EDT active May Have - eCW1 ([facility]) InCare Straight 14FR/20CM 1 UNK 11/25/2019 12:00:00 AM EDT active InCare [employer]ight 14FR/20CM 1 eCW1 ([facility]) May Have - UNK 11/25/2019 12:00:00 AM EDT active May Have - eCW1 ([facility]) [employer] [employer] 14FR/20CM 1 UNK 11/25/2019 12:00:00 AM EDT active [facility] [employer] 14FR/20CM 1 eCW1 ([facility]) Sodium Phosphate, Dibasic 59.3 MG/ML / S odium Phosphate, Monobasic 161 MG/ML Enema Fleet Enema 7-19 GM/118ML Fleet Enema 7-19 GM/118ML 11/25/2019 12:00:00 AM EDT active Fleet Enema 7-19 GM/118ML eCW1 ([facility]) Bisacodyl 10 MG Rectal Suppository Bisacodyl 10 MG 11/25/2019 12:00 :00 AM EDT 1.0 {suppository_as_needed} active Bisa codyl 10 MG eCW1 ([facility]) May Have - UNK 11/25/2019 12:00:00 AM EDT active May Have - eCW1 ([facility]) Sodium Phosphate, Dibasic 59.3 MG/ML / S odium Phosphate, Monobasic 161 MG/ML Enema Fleet Enema 7-19 GM/118ML Fleet Enema 7-19 GM/118ML 11/25/2019 12:00:00 AM EDT active Fleet Enema 7-19 GM/118ML eCW1 ([facility]) Bisacodyl 10 MG Rectal Suppository Bisacodyl 10 MG 11/25/2019 12:00 :00 AM EDT 1.0 {suppository_as_needed} active Bisa codyl 10 MG eCW1 ([facility]) Sodium Phosphate, Dibasic 59.3 MG/ML / S odium Phosphate, Monobasic 161 MG/ML Enema Fleet Enema 7-19 GM/118ML Fleet Enema 7-19 GM/118ML 11/25/2019 12:00:00 AM EDT active Fleet Enema 7-19 GM/118ML eCW1 ([facility]) May Have - UNK 11/25/2019 12:00:00 AM EDT active May Have - eCW1 ([facility]) InCare Straight 14FR/20CM 1 UNK 11/25/2019 12:00:00 AM EDT active InCare Straight 14FR/20CM 1 eCW1 ([facility]) Sodium Phosphate, Dibasic 59.3 MG/ML / S odium Phosphate, Monobasic 161 MG/ML Enema Fleet Enema 7-19 GM/118ML Fleet Enema 7-19 GM/118ML 11/25/2019 12:00:00 AM EDT active Fleet Enema 7-19 GM/118ML eCW1 ([facility]) Sodium Phosphate, Dibasic 59.3 MG/ML / S odium Phosphate, Monobasic 161 MG/ML Enema Fleet Enema 7-19 GM/118ML Fleet Enema 7-19 GM/118ML 11/25/2019 12:00:00 AM EDT active Fleet Enema 7-19 GM/118ML eCW1 ([facility]) May Have - UNK 11/25/2019 12:00:00 AM EDT active May Have - eCW1 ([facility]) Bisacodyl 10 MG Rectal Suppository Bisacodyl 10 MG 11/25/2019 12:00 :00 AM EDT 1.0 {suppository_as_needed} active Bisa codyl 10 MG eCW1 ([facility]) Sodium Phosphate, Dibasic 59.3 MG/ML / S odium Phosphate, Monobasic 161 MG/ML Enema Fleet Enema 7-19 GM/118ML Fleet Enema 7-19 GM/118ML 11/25/2019 12:00:00 AM EDT active Fleet Enema 7-19 GM/118ML eCW1 ([facility]) InCare Straight 14FR/20CM 1 UNK 11/25/2019 12:00:00 AM EDT active InCare Straight 14FR/20CM 1 eCW1 ([facility]) Sodium Phosphate, Dibasic 59.3 MG/ML / S odium Phosphate, Monobasic 161 MG/ML Enema Fleet Enema 7-19 GM/118ML Fleet Enema 7-19 GM/118ML 11/25/2019 12:00:00 AM EDT active Fleet Enema 7-19 GM/118ML eCW1 ([facility]) Bisacodyl 10 MG Rectal Suppository Bisacodyl 10 MG 11/25/2019 12:00 :00 AM EDT 1.0 {suppository_as_needed} active Bisa codyl 10 MG eCW1 ([facility]) Sodium Phosphate, Dibasic 59.3 MG/ML / S odium Phosphate, Monobasic 161 MG/ML Enema Fleet Enema 7-19 GM/118ML Fleet Enema 7-19 GM/118ML 11/25/2019 12:00:00 AM EDT active Fleet Enema 7-19 GM/118ML eCW1 ([facility]) May Have - UNK 11/25/2019 12:00:00 AM EDT active May Have - eCW1 ([facility]) InCare Straight 14FR/20CM 1 UNK 11/25/2019 12:00:00 AM EDT active InCare Straight 14FR/20CM 1 eCW1 ([facility]) Sodium Phosphate, Dibasic 59.3 MG/ML / S odium Phosphate, Monobasic 161 MG/ML Enema Fleet Enema 7-19 GM/118ML Fleet Enema 7-19 GM/118ML 11/25/2019 12:00:00 AM EDT active Fleet Enema 7-19 GM/118ML eCW1 ([facility]) Bisacodyl 10 MG Rectal Suppository Bisacodyl 10 MG 11/25/2019 12:00 :00 AM EDT 1.0 {suppository_as_needed} active Bisa codyl 10 MG eCW1 ([facility]) May Have - UNK 11/25/2019 12:00:00 AM EDT active May Have - eCW1 ([facility]) May Have - UNK 11/25/2019 12:00:00 AM EDT active May Have - eCW1 ([facility]) Bisacodyl 10 MG Rectal Suppository Bisacodyl 10 MG 11/25/2019 12:00 :00 AM EDT 1.0 {suppository_as_needed} active Bisa codyl 10 MG eCW1 ([facility]) InCare Straight 14FR/20CM 1 UNK 11/25/2019 12:00:00 AM EDT active InCare Straight 14FR/20CM 1 eCW1 ([facility]) Bisacodyl 10 MG Rectal Suppository Bisacodyl 10 MG 11/25/2019 12:00 :00 AM EDT 1.0 {suppository_as_needed} active Bisa codyl 10 MG eCW1 ([facility]) Sodium Phosphate, Dibasic 59.3 MG/ML / S odium Phosphate, Monobasic 161 MG/ML Enema Fleet Enema 7-19 GM/118ML Fleet Enema 7-19 GM/118ML 11/25/2019 12:00:00 AM EDT active Fleet Enema 7-19 GM/118ML eCW1 ([facility]) Sodium Phosphate, Dibasic 59.3 MG/ML / S odium Phosphate, Monobasic 161 MG/ML Enema Fleet Enema 7-19 GM/118ML Fleet Enema 7-19 GM/118ML 11/25/2019 12:00:00 AM EDT active Fleet Enema 7-19 GM/118ML eCW1 ([facility]) Bisacodyl 10 MG Rectal Suppository Bisacodyl 10 MG 11/25/2019 12:00 :00 AM EDT 1.0 {suppository_as_needed} active Bisa codyl 10 MG eCW1 ([facility]) Bisacodyl 10 MG Rectal Suppository Bisacodyl 10 MG 11/25/2019 12:00 :00 AM EDT 1.0 {suppository_as_needed} active Bisa codyl 10 MG eCW1 ([facility]) Bisacodyl 10 MG Rectal Suppository Bisacodyl 10 MG 11/25/2019 12:00 :00 AM EDT 1.0 {suppository_as_needed} active Bisa codyl 10 MG eCW1 ([facility]) InCare Straight 14FR/20CM 1 UNK 11/25/2019 12:00:00 AM EDT active InCare Straight 14FR/20CM 1 eCW1 ([facility]) May Have - UNK 11/25/2019 12:00:00 AM EDT active May Have - eCW1 ([facility]) May Have - UNK 11/25/2019 12:00:00 AM EDT active May Have - eCW1 ([facility]) InCare Straight 14FR/20CM 1 UNK 11/25/2019 12:00:00 AM EDT active InCare Straight 14FR/20CM 1 eCW1 ([facility]) May Have - UNK 11/25/2019 12:00:00 AM EDT active May Have - eCW1 ([facility]) InCare Straight 14FR/20CM 1 UNK 11/25/2019 12:00:00 AM EDT active InCare Straight 14FR/20CM 1 eCW1 ([facility]) Bisacodyl 10 MG Rectal Suppository Bisacodyl 10 MG 11/25/2019 12:00 :00 AM EDT 1.0 {suppository_as_needed} active Bisa codyl 10 MG eCW1 ([facility]) InCare Straight 14FR/20CM 1 UNK 11/25/2019 12:00:00 AM EDT active InCare Straight 14FR/20CM 1 eCW1 ([facility]) Sodium Phosphate, Dibasic 59.3 MG/ML / S odium Phosphate, Monobasic 161 MG/ML Enema Fleet Enema 7-19 GM/118ML Fleet Enema 7-19 GM/118ML 11/25/2019 12:00:00 AM EDT active Fleet Enema 7-19 GM/118ML eCW1 ([facility]) Bisacodyl 10 MG Rectal Suppository Bisacodyl 10 MG 11/25/2019 12:00 :00 AM EDT 1.0 {suppository_as_needed} active Bisa codyl 10 MG eCW1 ([facility]) May Have - UNK 11/25/2019 12:00:00 AM EDT active May Have - eCW1 ([facility]) May Have - UNK 11/25/2019 12:00:00 AM EDT active May Have - eCW1 ([facility]) Sodium Phosphate, Dibasic 59.3 MG/ML / S odium Phosphate, Monobasic 161 MG/ML Enema Fleet Enema 7-19 GM/118ML Fleet Enema 7-19 GM/118ML 11/25/2019 12:00:00 AM EDT active Fleet Enema 7-19 GM/118ML eCW1 ([facility]) May Have - UNK 11/25/2019 12:00:00 AM EDT active May Have - eCW1 ([facility]) May Have - UNK 11/25/2019 12:00:00 AM EDT active May Have - eCW1 ([facility]) InCare Straight 14FR/20CM 1 UNK 11/25/2019 12:00:00 AM EDT active InCare Straight 14FR/20CM 1 eCW1 ([facility]) Sodium Phosphate, Dibasic 59.3 MG/ML / S odium Phosphate, Monobasic 161 MG/ML Enema Fleet Enema 7-19 GM/118ML Fleet Enema 7-19 GM/118ML 11/25/2019 12:00:00 AM EDT active Fleet Enema 7-19 GM/118ML eCW1 ([facility]) May Have - UNK 11/25/2019 12:00:00 AM EDT active May Have - eCW1 ([facility]) Sodium Phosphate, Dibasic 59.3 MG/ML / S odium Phosphate, Monobasic 161 MG/ML Enema Fleet Enema 7-19 GM/118ML Fleet Enema 7-19 GM/118ML 11/25/2019 12:00:00 AM EDT active Fleet Enema 7-19 GM/118ML eCW1 ([facility]) Bisacodyl 10 MG Rectal Suppository Bisacodyl 10 MG 11/25/2019 12:00 :00 AM EDT 1.0 {suppository_as_needed} active Bisa codyl 10 MG eCW1 ([facility]) Bisacodyl 10 MG Rectal Suppository Bisacodyl 10 MG 11/25/2019 12:00 :00 AM EDT 1.0 {suppository_as_needed} active Bisa codyl 10 MG eCW1 ([facility]) InCare Straight 14FR/20CM 1 UNK 11/25/2019 12:00:00 AM EDT active InCare Straight 14FR/20CM 1 eCW1 ([facility]) Sodium Phosphate, Dibasic 59.3 MG/ML / S odium Phosphate, Monobasic 161 MG/ML Enema Fleet Enema 7-19 GM/118ML Fleet Enema 7-19 GM/118ML 11/25/2019 12:00:00 AM EDT active Fleet Enema 7-19 GM/118ML eCW1 ([facility]) Bisacodyl 10 MG Rectal Suppository Bisacodyl 10 MG 11/25/2019 12:00 :00 AM EDT 1.0 {suppository_as_needed} active Bisa codyl 10 MG eCW1 ([facility]) May Have - UNK 11/25/2019 12:00:00 AM EDT active May Have - eCW1 ([facility]) Sodium Phosphate, Dibasic 59.3 MG/ML / S odium Phosphate, Monobasic 161 MG/ML Enema Fleet Enema 7-19 GM/118ML Fleet Enema 7-19 GM/118ML 11/25/2019 12:00:00 AM EDT active Fleet Enema 7-19 GM/118ML eCW1 ([facility]) Sodium Phosphate, Dibasic 59.3 MG/ML / S odium Phosphate, Monobasic 161 MG/ML Enema Fleet Enema 7-19 GM/118ML Fleet Enema 7-19 GM/118ML 11/25/2019 12:00:00 AM EDT active Fleet Enema 7-19 GM/118ML eCW1 ([facility]) May Have - UNK 11/25/2019 12:00:00 AM EDT active May Have - eCW1 ([facility]) InCare Straight 14FR/20CM 1 UNK 11/25/2019 12:00:00 AM EDT active InCare Straight 14FR/20CM 1 eCW1 ([facility]) May Have - UNK 11/25/2019 12:00:00 AM EDT active May Have - eCW1 ([facility]) InCare Straight 14FR/20CM 1 UNK 11/25/2019 12:00:00 AM EDT active InCare Straight 14FR/20CM 1 eCW1 ([facility]) May Have - UNK 11/25/2019 12:00:00 AM EDT active May Have - eCW1 ([facility]) InCare Straight 14FR/20CM 1 UNK 11/25/2019 12:00:00 AM EDT active InCare Straight 14FR/20CM 1 eCW1 ([facility]) Sodium Phosphate, Dibasic 59.3 MG/ML / S odium Phosphate, Monobasic 161 MG/ML Enema Fleet Enema 7-19 GM/118ML Fleet Enema 7-19 GM/118ML 11/25/2019 12:00:00 AM EDT active Fleet Enema 7-19 GM/118ML eCW1 ([facility]) Sodium Phosphate, Dibasic 59.3 MG/ML / S odium Phosphate, Monobasic 161 MG/ML Enema Fleet Enema 7-19 GM/118ML Fleet Enema 7-19 GM/118ML 11/25/2019 12:00:00 AM EDT active Fleet Enema 7-19 GM/118ML eCW1 ([facility]) InCare Straight 14FR/20CM 1 UNK 11/25/2019 12:00:00 AM EDT active InCare Straight 14FR/20CM 1 eCW1 ([facility]) Sodium Phosphate, Dibasic 59.3 MG/ML / S odium Phosphate, Monobasic 161 MG/ML Enema Fleet Enema 7-19 GM/118ML Fleet Enema 7-19 GM/118ML 11/25/2019 12:00:00 AM EDT active Fleet Enema 7-19 GM/118ML eCW1 ([facility]) InCare Straight 14FR/20CM 1 UNK 11/25/2019 12:00:00 AM EDT active InCare Straight 14FR/20CM 1 eCW1 ([facility]) InCare Straight 14FR/20CM 1 UNK 11/25/2019 12:00:00 AM EDT active InCare Straight 14FR/20CM 1 eCW1 ([facility]) Sodium Phosphate, Dibasic 59.3 MG/ML / S odium Phosphate, Monobasic 161 MG/ML Enema Fleet Enema 7-19 GM/118ML Fleet Enema 7-19 GM/118ML 11/25/2019 12:00:00 AM EDT active Fleet Enema 7-19 GM/118ML eCW1 ([facility]) InCare Straight 14FR/20CM 1 UNK 11/25/2019 12:00:00 AM EDT active InCare Straight 14FR/20CM 1 eCW1 ([facility]) Bisacodyl 10 MG Rectal Suppository Bisacodyl 10 MG 11/25/2019 12:00 :00 AM EDT 1.0 {suppository_as_needed} active Bisa codyl 10 MG eCW1 ([facility]) InCare Straight 14FR/20CM 1 UNK 11/25/2019 12:00:00 AM EDT active InCare Straight 14FR/20CM 1 eCW1 ([facility]) Bisacodyl 10 MG Rectal Suppository Bisacodyl 10 MG 11/25/2019 12:00 :00 AM EDT 1.0 {suppository_as_needed} active Bisa codyl 10 MG eCW1 ([facility]) Sodium Phosphate, Dibasic 59.3 MG/ML / S odium Phosphate, Monobasic 161 MG/ML Enema Fleet Enema 7-19 GM/118ML Fleet Enema 7-19 GM/118ML 11/25/2019 12:00:00 AM EDT active Fleet Enema 7-19 GM/118ML eCW1 ([facility]) InCare Straight 14FR/20CM 1 UNK 11/25/2019 12:00:00 AM EDT active InCare Straight 14FR/20CM 1 eCW1 ([facility]) May Have - UNK 11/25/2019 12:00:00 AM EDT active May Have - eCW1 ([facility]) Bisacodyl 10 MG Rectal Suppository Bisacodyl 10 MG 11/25/2019 12:00 :00 AM EDT 1.0 {suppository_as_needed} active Bisa codyl 10 MG eCW1 ([facility]) Bisacodyl 10 MG Rectal Suppository Bisacodyl 10 MG 11/25/2019 12:00 :00 AM EDT 1.0 {suppository_as_needed} active Bisa codyl 10 MG eCW1 ([facility]) Bisacodyl 10 MG Rectal Suppository Bisacodyl 10 MG 11/25/2019 12:00 :00 AM EDT 1.0 {suppository_as_needed} active Bisa codyl 10 MG eCW1 ([facility]) May Have - UNK 11/25/2019 12:00:00 AM EDT active May Have - eCW1 ([facility]) May Have - UNK 11/25/2019 12:00:00 AM EDT active May Have - eCW1 ([facility]) InCare Straight 14FR/20CM 1 UNK 11/25/2019 12:00:00 AM EDT active InCare Straight 14FR/20CM 1 eCW1 ([facility]) Sodium Phosphate, Dibasic 59.3 MG/ML / S odium Phosphate, Monobasic 161 MG/ML Enema Fleet Enema 7-19 GM/118ML Fleet Enema 7-19 GM/118ML 11/25/2019 12:00:00 AM EDT active Fleet Enema 7-19 GM/118ML eCW1 ([facility]) May Have - UNK 11/25/2019 12:00:00 AM EDT active May Have - eCW1 ([facility]) May Have - UNK 11/25/2019 12:00:00 AM EDT active May Have - eCW1 ([facility]) Bisacodyl 10 MG Rectal Suppository Bisacodyl 10 MG 11/25/2019 12:00 :00 AM EDT 1.0 {suppository_as_needed} active Bisa codyl 10 MG eCW1 ([facility]) InCare Straight 14FR/20CM 1 UNK 11/25/2019 12:00:00 AM EDT active InCare Straight 14FR/20CM 1 eCW1 ([facility]) Bisacodyl 10 MG Rectal Suppository Bisacodyl 10 MG 11/25/2019 12:00 :00 AM EDT 1.0 {suppository_as_needed} active Bisa codyl 10 MG eCW1 ([facility]) Bisacodyl 10 MG Rectal Suppository Bisacodyl 10 MG 11/25/2019 12:00 :00 AM EDT 1.0 {suppository_as_needed} active Bisa codyl 10 MG eCW1 ([facility]) May Have - UNK 11/25/2019 12:00:00 AM EDT active May Have - eCW1 ([facility]) InCare Straight 14FR/20CM 1 UNK 11/25/2019 12:00:00 AM EDT active InCare Straight 14FR/20CM 1 eCW1 ([facility]) Sodium Phosphate, Dibasic 59.3 MG/ML / S odium Phosphate, Monobasic 161 MG/ML Enema Fleet Enema 7-19 GM/118ML Fleet Enema 7-19 GM/118ML 11/25/2019 12:00:00 AM EDT active Fleet Enema 7-19 GM/118ML eCW1 ([facility]) Bisacodyl 10 MG Rectal Suppository Bisacodyl 10 MG 11/25/2019 12:00 :00 AM EDT 1.0 {suppository_as_needed} active Bisa codyl 10 MG eCW1 ([facility]) Bisacodyl 10 MG Rectal Suppository Bisacodyl 10 MG 11/25/2019 12:00 :00 AM EDT 1.0 {suppository_as_needed} active Bisa codyl 10 MG eCW1 ([facility]) InCare Straight 14FR/20CM 1 UNK 11/25/2019 12:00:00 AM EDT active InCare Straight 14FR/20CM 1 eCW1 ([facility]) InCare Straight 14FR/20CM 1 UNK 11/25/2019 12:00:00 AM EDT active InCare Straight 14FR/20CM 1 eCW1 ([facility]) Bisacodyl 10 MG Rectal Suppository Bisacodyl 10 MG 11/25/2019 12:00 :00 AM EDT 1.0 {suppository_as_needed} active Bisa codyl 10 MG eCW1 ([facility]) Sodium Phosphate, Dibasic 59.3 MG/ML / S odium Phosphate, Monobasic 161 MG/ML Enema Fleet Enema 7-19 GM/118ML Fleet Enema 7-19 GM/118ML 11/25/2019 12:00:00 AM EDT active Fleet Enema 7-19 GM/118ML eCW1 ([facility]) NITROFURANTOIN, MACROCRYSTALS 25 MG / Ni trofurantoin, Monohydrate 75 MG Oral Capsule Nitrofurantoin Monohyd Macro 100 MG Nitrofurantoin Monohyd Macro 100 MG 08/15/2019 12:00:00 AM EDT active Nitrofurantoin Monohyd Macro 100 MG eCW1 ([facility]) NITROFURANTOIN, MACROCRYSTALS 25 MG / Ni trofurantoin, Monohydrate 75 MG Oral Capsule Nitrofurantoin Monohyd Macro 100 MG Nitrofurantoin Monohyd Macro 100 MG 08/15/2019 12:00:00 AM EDT active Nitrofurantoin Monohyd Macro 100 MG eCW1 ([facility]) NITROFURANTOIN, MACROCRYSTALS 25 MG / Ni trofurantoin, Monohydrate 75 MG Oral Capsule Nitrofurantoin Monohyd Macro 100 MG Nitrofurantoin Monohyd Macro 100 MG 08/15/2019 12:00:00 AM EDT active Nitrofurantoin Monohyd Macro 100 MG eCW1 ([facility]) NITROFURANTOIN, MACROCRYSTALS 25 MG / Ni trofurantoin, Monohydrate 75 MG Oral Capsule Nitrofurantoin Monohyd Macro 100 MG Nitrofurantoin Monohyd Macro 100 MG 08/15/2019 12:00:00 AM EDT active Nitrofurantoin Monohyd Macro 100 MG eCW1 ([facility]) NITROFURANTOIN, MACROCRYSTALS 25 MG / Ni trofurantoin, Monohydrate 75 MG Oral Capsule Nitrofurantoin Monohyd Macro 100 MG Nitrofurantoin Monohyd Macro 100 MG 08/15/2019 12:00:00 AM EDT active Nitrofurantoin Monohyd Macro 100 MG eCW1 ([facility]) NITROFURANTOIN, MACROCRYSTALS 25 MG / Ni trofurantoin, Monohydrate 75 MG Oral Capsule Nitrofurantoin Monohyd Macro 100 MG Nitrofurantoin Monohyd Macro 100 MG 08/15/2019 12:00:00 AM EDT active Nitrofurantoin Monohyd Macro 100 MG eCW1 ([facility]) NITROFURANTOIN, MACROCRYSTALS 25 MG / Ni trofurantoin, Monohydrate 75 MG Oral Capsule Nitrofurantoin Monohyd Macro 100 MG Nitrofurantoin Monohyd Macro 100 MG 08/15/2019 12:00:00 AM EDT active Nitrofurantoin Monohyd Macro 100 MG eCW1 ([facility]) NITROFURANTOIN, MACROCRYSTALS 25 MG / Ni trofurantoin, Monohydrate 75 MG Oral Capsule Nitrofurantoin Monohyd Macro 100 MG Nitrofurantoin Monohyd Macro 100 MG 08/15/2019 12:00:00 AM EDT active Nitrofurantoin Monohyd Macro 100 MG eCW1 ([facility]) NITROFURANTOIN, MACROCRYSTALS 25 MG / Ni trofurantoin, Monohydrate 75 MG Oral Capsule Nitrofurantoin Monohyd Macro 100 MG Nitrofurantoin Monohyd Macro 100 MG 08/15/2019 12:00:00 AM EDT active Nitrofurantoin Monohyd Macro 100 MG eCW1 ([facility]) NITROFURANTOIN, MACROCRYSTALS 25 MG / Ni trofurantoin, Monohydrate 75 MG Oral Capsule Nitrofurantoin Monohyd Macro 100 MG Nitrofurantoin Monohyd Macro 100 MG 08/15/2019 12:00:00 AM EDT active Nitrofurantoin Monohyd Macro 100 MG eCW1 ([facility]) NITROFURANTOIN, MACROCRYSTALS 25 MG / Ni trofurantoin, Monohydrate 75 MG Oral Capsule Nitrofurantoin Monohyd Macro 100 MG Nitrofurantoin Monohyd Macro 100 MG 08/15/2019 12:00:00 AM EDT active Nitrofurantoin Monohyd Macro 100 MG eCW1 ([facility]) NITROFURANTOIN, MACROCRYSTALS 25 MG / Ni trofurantoin, Monohydrate 75 MG Oral Capsule Nitrofurantoin Monohyd Macro 100 MG Nitrofurantoin Monohyd Macro 100 MG 08/15/2019 12:00:00 AM EDT active Nitrofurantoin Monohyd Macro 100 MG eCW1 ([facility]) NITROFURANTOIN, MACROCRYSTALS 25 MG / Ni trofurantoin, Monohydrate 75 MG Oral Capsule Nitrofurantoin Monohyd Macro 100 MG Nitrofurantoin Monohyd Macro 100 MG 08/15/2019 12:00:00 AM EDT active Nitrofurantoin Monohyd Macro 100 MG eCW1 ([facility]) NITROFURANTOIN, MACROCRYSTALS 25 MG / Ni trofurantoin, Monohydrate 75 MG Oral Capsule Nitrofurantoin Monohyd Macro 100 MG Nitrofurantoin Monohyd Macro 100 MG 08/15/2019 12:00:00 AM EDT active Nitrofurantoin Monohyd Macro 100 MG eCW1 ([facility]) NITROFURANTOIN, MACROCRYSTALS 25 MG / Ni trofurantoin, Monohydrate 75 MG Oral Capsule Nitrofurantoin Monohyd Macro 100 MG Nitrofurantoin Monohyd Macro 100 MG 08/15/2019 12:00:00 AM EDT active Nitrofurantoin Monohyd Macro 100 MG eCW1 ([facility]) NITROFURANTOIN, MACROCRYSTALS 25 MG / Ni trofurantoin, Monohydrate 75 MG Oral Capsule Nitrofurantoin Monohyd Macro 100 MG Nitrofurantoin Monohyd Macro 100 MG 08/15/2019 12:00:00 AM EDT active Nitrofurantoin Monohyd Macro 100 MG eCW1 ([facility]) NITROFURANTOIN, MACROCRYSTALS 25 MG / Ni trofurantoin, Monohydrate 75 MG Oral Capsule Nitrofurantoin Monohyd Macro 100 MG Nitrofurantoin Monohyd Macro 100 MG 08/15/2019 12:00:00 AM EDT active Nitrofurantoin Monohyd Macro 100 MG eCW1 ([facility]) NITROFURANTOIN, MACROCRYSTALS 25 MG / Ni trofurantoin, Monohydrate 75 MG Oral Capsule Nitrofurantoin Monohyd Macro 100 MG Nitrofurantoin Monohyd Macro 100 MG 08/15/2019 12:00:00 AM EDT active Nitrofurantoin Monohyd Macro 100 MG eCW1 ([facility]) NITROFURANTOIN, MACROCRYSTALS 25 MG / Ni trofurantoin, Monohydrate 75 MG Oral Capsule Nitrofurantoin Monohyd Macro 100 MG Nitrofurantoin Monohyd Macro 100 MG 08/15/2019 12:00:00 AM EDT active Nitrofurantoin Monohyd Macro 100 MG eCW1 ([facility]) NITROFURANTOIN, MACROCRYSTALS 25 MG / Ni trofurantoin, Monohydrate 75 MG Oral Capsule Nitrofurantoin Monohyd Macro 100 MG Nitrofurantoin Monohyd Macro 100 MG 08/15/2019 12:00:00 AM EDT active Nitrofurantoin Monohyd Macro 100 MG eCW1 ([facility]) NITROFURANTOIN, MACROCRYSTALS 25 MG / Ni trofurantoin, Monohydrate 75 MG Oral Capsule Nitrofurantoin Monohyd Macro 100 MG Nitrofurantoin Monohyd Macro 100 MG 08/15/2019 12:00:00 AM EDT active Nitrofurantoin Monohyd Macro 100 MG eCW1 ([facility]) Chlorthalidone 25 MG Oral Tablet Chlorthalidone 25 MG 2019 12:00:00 AM EDT 1.0 {tablet} active Chlorthalid one 25 MG eCW1 ([facility]) Chlorthalidone 25 MG Oral Tablet Chlorthalidone 25 MG 2019 12:00:00 AM EDT 1.0 {tablet} active Chlorthalid one 25 MG eCW1 ([facility]) Chlorthalidone 25 MG Oral Tablet Chlorthalidone 25 MG 2019 12:00:00 AM EDT 1.0 {tablet} active Chlorthalid one 25 MG eCW1 ([facility]) Chlorthalidone 25 MG Oral Tablet Chlorthalidone 25 MG 2019 12:00:00 AM EDT 1.0 {tablet} active Chlorthalid one 25 MG eCW1 ([facility]) Chlorthalidone 25 MG Oral Tablet Chlorthalidone 25 MG 2019 12:00:00 AM EDT 1.0 {tablet} active Chlorthalid one 25 MG eCW1 ([facility]) Chlorthalidone 25 MG Oral Tablet Chlorthalidone 25 MG 2019 12:00:00 AM EDT 1.0 {tablet} active Chlorthalid one 25 MG eCW1 ([facility]) Chlorthalidone 25 MG Oral Tablet Chlorthalidone 25 MG 2019 12:00:00 AM EDT 1.0 {tablet} active Chlorthalid one 25 MG eCW1 ([facility]) Chlorthalidone 25 MG Oral Tablet Chlorthalidone 25 MG 2019 12:00:00 AM EDT 1.0 {tablet} active Chlorthalid one 25 MG eCW1 ([facility]) Chlorthalidone 25 MG Oral Tablet Chlorthalidone 25 MG 2019 12:00:00 AM EDT 1.0 {tablet} active Chlorthalid one 25 MG eCW1 ([facility]) Chlorthalidone 25 MG Oral Tablet Chlorthalidone 25 MG 2019 12:00:00 AM EDT 1.0 {tablet} active Chlorthalid one 25 MG eCW1 ([facility]) Chlorthalidone 25 MG Oral Tablet Chlorthalidone 25 MG 2019 12:00:00 AM EDT 1.0 {tablet} active Chlorthalid one 25 MG eCW1 ([facility]) Chlorthalidone 25 MG Oral Tablet Chlorthalidone 25 MG 2019 12:00:00 AM EDT 1.0 {tablet} active Chlorthalid one 25 MG eCW1 ([facility]) Chlorthalidone 25 MG Oral Tablet Chlorthalidone 25 MG 2019 12:00:00 AM EDT 1.0 {tablet} active Chlorthalid one 25 MG eCW1 ([facility]) Chlorthalidone 25 MG Oral Tablet Chlorthalidone 25 MG 2019 12:00:00 AM EDT 1.0 {tablet} active Chlorthalid one 25 MG eCW1 ([facility]) Chlorthalidone 25 MG Oral Tablet Chlorthalidone 25 MG 2019 12:00:00 AM EDT 1.0 {tablet} active Chlorthalid one 25 MG eCW1 ([facility]) Chlorthalidone 25 MG Oral Tablet Chlorthalidone 25 MG 2019 12:00:00 AM EDT 1.0 {tablet} active Chlorthalid one 25 MG eCW1 ([facility]) Chlorthalidone 25 MG Oral Tablet Chlorthalidone 25 MG 2019 12:00:00 AM EDT 1.0 {tablet} active Chlorthalid one 25 MG eCW1 ([facility]) Chlorthalidone 25 MG Oral Tablet Chlorthalidone 25 MG 2019 12:00:00 AM EDT 1.0 {tablet} active Chlorthalid one 25 MG eCW1 ([facility]) Chlorthalidone 25 MG Oral Tablet Chlorthalidone 25 MG 2019 12:00:00 AM EDT 1.0 {tablet} active Chlorthalid one 25 MG eCW1 ([facility]) Chlorthalidone 25 MG Oral Tablet Chlorthalidone 25 MG 2019 12:00:00 AM EDT 1.0 {tablet} active Chlorthalid one 25 MG eCW1 ([facility]) Chlorthalidone 25 MG Oral Tablet Chlorthalidone 25 MG 2019 12:00:00 AM EDT 1.0 {tablet} active Chlorthalid one 25 MG eCW1 ([facility]) Chlorthalidone 25 MG Oral Tablet Chlorthalidone 25 MG 2019 12:00:00 AM EDT 1.0 {tablet} active Chlorthalid one 25 MG eCW1 ([facility]) Chlorthalidone 25 MG Oral Tablet Chlorthalidone 25 MG 2019 12:00:00 AM EDT 1.0 {tablet} active Chlorthalid one 25 MG eCW1 ([facility]) Chlorthalidone 25 MG Oral Tablet Chlorthalidone 25 MG 2019 12:00:00 AM EDT 1.0 {tablet} active Chlorthalid one 25 MG eCW1 ([facility]) Chlorthalidone 25 MG Oral Tablet Chlorthalidone 25 MG 2019 12:00:00 AM EDT 1.0 {tablet} active Chlorthalid one 25 MG eCW1 ([facility]) Chlorthalidone 25 MG Oral Tablet Chlorthalidone 25 MG 2019 12:00:00 AM EDT 1.0 {tablet} active Chlorthalid one 25 MG eCW1 ([facility]) May Have - UNK 07/14/2019 12:00:00 AM EDT active rest periods throught the day eCW1 ([facility]) Oseltamivir 75 MG Oral Capsule Oseltamivir Phosphate 7 5 MG Oseltamivir Phosphate 75 MG 07/01/2019 12:00:00 AM EDT active 1 capsule eCW1 ([facility]) Wheelchair _ UNK 03/18/2019 12:00:00 AM EST activ e Wheelchair _ eCW1 ([facility]) Wheelchair _ UNK 03/18/2019 12:00:00 AM EST activ e Wheelchair _ eCW1 ([facility]) Wheelchair _ UNK 03/18/2019 12:00:00 AM EST activ e Wheelchair _ eCW1 ([facility]) Wheelchair _ UNK 03/18/2019 12:00:00 AM EST activ e Wheelchair _ eCW1 ([facility]) Wheelchair _ UNK 03/18/2019 12:00:00 AM EST activ e Wheelchair _ eCW1 ([facility]) Wheelchair _ UNK 03/18/2019 12:00:00 AM EST activ e Wheelchair _ eCW1 ([facility]) Wheelchair _ UNK 03/18/2019 12:00:00 AM EST activ e Wheelchair _ eCW1 ([facility]) Wheelchair _ UNK 03/18/2019 12:00:00 AM EST activ e Wheelchair _ eCW1 ([facility]) Wheelchair _ UNK 03/18/2019 12:00:00 AM EST activ e Wheelchair _ eCW1 ([facility]) Wheelchair _ UNK 03/18/2019 12:00:00 AM EST activ e Wheelchair _ eCW1 ([facility]) Wheelchair _ UNK 03/18/2019 12:00:00 AM EST activ e Wheelchair _ eCW1 ([facility]) Wheelchair _ UNK 03/18/2019 12:00:00 AM EST activ e Wheelchair _ eCW1 ([facility]) Wheelchair _ UNK 03/18/2019 12:00:00 AM EST activ e Wheelchair _ eCW1 ([facility]) Wheelchair _ UNK 03/18/2019 12:00:00 AM EST active Ifeanyi height manual wheelchair with accessories eCW1 ([facility]) Wheelchair _ UNK 03/18/2019 12:00:00 AM EST activ e Wheelchair _ eCW1 ([facility]) Wheelchair _ UNK 03/18/2019 12:00:00 AM EST activ e Wheelchair _ eCW1 ([facility]) Wheelchair _ UNK 03/18/2019 12:00:00 AM EST activ e Wheelchair _ eCW1 ([facility]) Wheelchair _ UNK 03/18/2019 12:00:00 AM EST activ e Wheelchair _ eCW1 ([facility]) Wheelchair _ UNK 03/18/2019 12:00:00 AM EST activ e Wheelchair _ eCW1 ([facility]) Wheelchair _ UNK 03/18/2019 12:00:00 AM EST activ e Wheelchair _ eCW1 ([facility]) Wheelchair _ UNK 03/18/2019 12:00:00 AM EST activ e Wheelchair _ eCW1 ([facility]) Wheelchair _ UNK 03/18/2019 12:00:00 AM EST active Ifeanyi height manual wheelchair with accessories eCW1 ([facility]) Wheelchair _ UNK 03/18/2019 12:00:00 AM EST activ e Wheelchair _ eCW1 ([facility]) Wheelchair _ UNK 03/18/2019 12:00:00 AM EST activ e Wheelchair _ eCW1 ([facility]) Wheelchair _ UNK 03/18/2019 12:00:00 AM EST activ e Wheelchair _ eCW1 ([facility]) Wheelchair _ UNK 03/18/2019 12:00:00 AM EST activ e Wheelchair _ eCW1 ([facility]) Wheelchair _ UNK 03/18/2019 12:00:00 AM EST activ e Wheelchair _ eCW1 ([facility]) Wheelchair _ UNK 03/18/2019 12:00:00 AM EST activ e Wheelchair _ eCW1 ([facility]) Wheelchair _ UNK 03/18/2019 12:00:00 AM EST activ e Wheelchair _ eCW1 ([facility]) Wheelchair _ UNK 03/18/2019 12:00:00 AM EST activ e Wheelchair _ eCW1 ([facility]) Wheelchair _ UNK 03/18/2019 12:00:00 AM EST activ e Wheelchair _ eCW1 ([facility]) Wheelchair _ UNK 03/18/2019 12:00:00 AM EST activ e Wheelchair _ eCW1 ([facility]) Wheelchair _ UNK 03/18/2019 12:00:00 AM EST activ e Wheelchair _ eCW1 ([facility]) Wheelchair _ UNK 03/18/2019 12:00:00 AM EST activ e Wheelchair _ eCW1 ([facility]) Wheelchair _ UNK 03/18/2019 12:00:00 AM EST activ e Wheelchair _ eCW1 ([facility]) Wheelchair _ UNK 03/18/2019 12:00:00 AM EST activ e Wheelchair _ eCW1 ([facility]) Wheelchair _ UNK 03/18/2019 12:00:00 AM EST activ e Wheelchair _ eCW1 ([facility]) Wheelchair _ UNK 03/18/2019 12:00:00 AM EST activ e Wheelchair _ eCW1 ([facility]) Doxycycline Monohydrate 100 MG Oral Capsule Doxycycline Routt hydrate 03/11/2019 12:00:00 AM EST ORAL active M EDENT ([facility], [facility]) Mupirocin 0.02 MG/MG Topical Ointment Mupirocin 03/11/2019 12:00:00 AM EST active MEDENT ([facility], [facility]) Cephalexin 500 MG Oral Capsule [Keflex] Keflex 500 MG Keflex 500 MG 01/11/2019 12:00:00 AM EST active 1 capsul e eCW1 ([facility]) Triamcinolone Acetonide 1 MG/ML Topical Cream Triamcin olone Acetonide 0.1 % Triamcinolone Acetonide 0.1 % 1.0 {application_to_affected_a hector} active Triamcinolone Acetonide 0.1 % eC W1 ([facility]) Triamcinolone Acetonide 1 MG/ML Topical Cream Triamcin olone Acetonide 0.1 % Triamcinolone Acetonide 0.1 % 1.0 {application_to_affected_a hector} active Triamcinolone Acetonide 0.1 % eC W1 ([facility]) Insurance Providers Payer name Policy type / Coverage type Policy ID Covered democrat ID Covered democrat's relationship to millan Policy Millan Plan Information EMEDNY [id number] SP [id number] MEDICARE [id number] SP [id number] MEDICARE [id number] SP [id number] MEDICAID -O/P MARLENA [id number] 18 [id number] MEDICARE PART A -O [id number] 18 [id number] MEDICARE PART A -I/P [id number] 18 [id number] MEDICAID -I/P [id number] 18 [id number] MEDICARE PART A -O/P [id number] 18 [id number] MEDICAID -O/P EMERGENCY ROOM [id number] 18 [id number] MEDICAID [id number] SP [id number] ANSI-Medicare Part B [id number] ANSI-Medicaid [id number] ANSI-Medicaid [id number] ANSI-Medicare Part B [id number] ANSI-Medicare Part B [id number] ANS-Medicaid [id number] Medicare Part B Medicare Primary [id number] Self [id number] Medicaid [facility] Part B [id number] Self [id number] ANSI-Medicare Part B [id number] ANSI-Medicaid [id number] MEDICARE [id number] SP [id number] ANSI-Medicare Part B [id number] ANSI-Medicaid [id number] ANSI-Medicare Part B [id number] ANSI-Medicaid [id number] ANSI-Medicare Part B [id number] ANSI-Medicaid [id number] ANSI-Medicare Part B [id number] ANSI-Medicaid [id number] ANSI-Medicaid [id number] ANSI-Medicare Part B [id number] ANSI-Medicare Part B [id number] ANSI-Medicaid [id number] ANSI-Medicaid [id number] ANSI-Medicare Part B [id number] Medicaid [place] [facility] Part B [id number] Self [id number] Medicare Natl Gov't Servi Medicare Primary [id number] Self [id number] ANSI-Medicare Part B [id number] ANSI-Medicaid [id number] Medicare Part B Medicare Primary [id number] Self [id number] ANSI-Medicare Part B [id number] ANSI-Medicaid [id number] ANSI-Medicaid [id number] ANSI-Medicare Part B [id number] ANSI-Medicare Part B [id number] ANSI-Medicaid [id number] Medicare Natl Gov't Servi Medicare Primary [id number] Self [id number] ANSI-Medicaid [id number] ANSI-Medicare Part B [id number] ANSI-Medicare Part B [id number] ANSI-Medicaid [id number] ANSI-Medicare Part B [id number] ANSI-Medicaid [id number] ANSI-Medicaid [id number] ANSI-Medicare Part B [id number] ANSI-Medicare Part B [id number] ANSI-Medicaid [id number] Medicare Part B Medicare Primary [id number] Self [id number] ANSI-Medicare Part B [id number] ANSI-Medicaid [id number] ANSI-Medicare Part B [id number] ANSI-Medicaid [id number] ANSI-Medicaid [id number] ANSI-Medicare Part B [id number] ANSI-Medicaid [id number] ANSI-Medicare Part B [id number] ANSI-Medicaid [id number] ANSI-Medicare Part B [id number] ANSI-Medicaid [id number] ANSI-Medicare Part B [id number] ANSI-Medicare Part B [id number] ANSI-Medicaid [id number] ANSI-Medicare Part B [id number] ANSI-Medicaid [id number] ANSI-Medicaid [id number] ANSI-Medicare Part B [id number] Medicare Part B Medicare Primary [id number] Self [id number] Medicare Part B Medicare Primary [id number] Self [id number] Medicare Natl Gov't Servi Medicare Primary [id number] Self [id number] Medicare Part B Medicare Primary [id number] Self [id number] Medicare Part B Medicare Primary [id number] Self [id number] Medicare Part B Medicare Primary [id number] Self [id number] Medicare Part B Medicare Primary [id number] Self [id number] Medicare Part B Medicare Primary Self Medicaid Medicaid Self Medicare Medicare Primary Self SELF PAY UNAVAILABLE SP UNA[place] BLE [place]ig[place] Self [place] Primary Self MEDICAID S [id number] MEDICARE P [id number] S [id number] Problems, Conditions, and Diagnoses Code Display Name Description Problem Type Effective Dates Data Source(s) J30.2 900315994 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, 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 12/02/2019 12:00:00 AM EDT eCW1 ([facility]) 994982670 Ingrowing nail Ingrowing nail Problem 11/24/2019 12:00: 00 AM EDT MEDENT ([facility] 945835274 Onychomycosis Onychomycosis Problem 11/24/2019 12:00:00 AM EDT MED[facility] ([facility] 48193322 Pain in limb Pain in limb Problem 11/24/2019 12:00:00 A M EDT MED[facility] ([facility] R13.12 59575210 Oropharyngeal dysphagia Problem 07/08/2019 1 2:00:00 AM EDT eCW1 ([facility]) R13.12 69824108 Oropharyngeal dysphagia Problem 07/08/2019 1 2:00:00 AM EDT eCW1 ([facility]) K449 Diaphragmatic hernia without obstruction or gangrene Diaphragmatic hernia without obstruction or gangrene Diagnosis 10/10/2019 10:35:00 AM EDT [facility] Z1159 Encounter for screening for other viral diseases Encounter for screening for other viral diseases Diagnosis 10/10/2019 10:35:00 AM EDT [facility] E876 Hypokalemia Hypokalemia Diagnosis 10/09/2019 07:15:00 PM EDT [facility] R569 Unspecified convulsions Unspecified convulsions Diagno sis 10/09/2019 07:15:00 PM EDT [facility] I10 Essential (primary) hypertension Essential (primary) h ypertension Diagnosis 10/09/2019 07:15:00 PM EDT [facility] H548 Legal blindness, as defined in [place] Legal blindne ss, as defined in [place] Diagnosis 10/09/2019 07:15:00 PM EDT [facility] G809 Cerebral palsy, unspecified Cerebral palsy, unspecifie d Diagnosis 10/09/2019 07:15:00 PM EDT [facility] K259 Gastric ulcer, unspecified a s acute or chronic, without hemorrhage or perforation Gastric ulcer, unspecified as acute or c hronic, without hemorrhage or perforation Diagnosis 10/09/2019 07:15:00 PM EDT [facility] M6282 Rhabdomyolysis Rhabdomyolysis Diagnosis 10/09/2019 07:15: 00 PM EDT [facility] N390 Urinary tract infection, site not specif ied Urinary tract infection, site not specified Diagnosis 10/09/2019 07:15:00 PM EDT [facility] A419 Sepsis, unspecified organism Sepsis, unspecified organ ism Diagnosis 10/09/2019 07:15:00 PM EDT [facility] J189 Pneumonia, unspecified organism Pneumonia, unspecified organism Diagnosis 10/09/2019 07:15:00 PM EDT [facility] Surgeries/Procedures Procedure Description Date Indications Data Source(s) DEBRIDEMENT NAIL ANY METHOD 6/> 11/18/2019 12:00:00 AM EDT ANA ([facility] Plain Radiography of Chest Plain Radiography of Chest 2019 12:00:00 AM T [facility] Monitoring of Cardiac Electrical Activity, External Ap proach Monitoring of Cardiac Electrical Activity, External Approach 10/10/2019 12:00:00 AM EDT [facility] Introduction of Other Anti-infective int o Peripheral Vein, Percutaneous Approach Introduction of Other Anti-infective int o Peripheral Vein, Percutaneous Approach 10/10/2019 12:00:[address] [facility] Introduction of Electrolytic and Water B alance Substance into Peripheral Vein, Percutaneous Approach Introduction of Electrolytic and Water B alance Substance into Peripheral Vein, Percutaneous Approach 10/10/2019 12:00:00 AM EDT [facility] Office Visit, Est Pt., Level 3 FC 07/01/2019 12:00:00 AM EDT eCW1 ([facility]) Office Visit, Est Pt., Level 3 PC 07/01/2019 12:00:00 AM EDT eCW1 ([facility]) Influenza A+B 07/01/2019 12:00:00 AM EDT eCW1 ([facility]) Office Visit, Est Pt., Level 4 PC 03/10/2019 12:00:00 AM EST eCW1 ([facility]) Results ID Date Data Source [id number] 01/30/2020 09:04:00 AM EST MEDENT ([facility], ) Name Value Range Interpretation Code Description Data Trini rce(s) Supporting Document(s) Creatine kinase [Enzymatic activity/volume] in Serum or Plasma 82 U /L 39-[facility] <content>note:<nlbl:demographic_changed> </content>
<content></content> Phenobarbital [Mass/volume] in Serum or Plasma 35.3 UG/ML 15.0-40.[facility] <content>note:<nlbl:demographic_changed> </content>
<content></content> Phenytoin [Mass/volume] in Serum or Plasma 17.4 UG/ML 10.0-20.[facility] <content>note:<nlbl:demographic_changed> </content>
<content></content> Levetiracetam [Mass/volume] in Serum or Plasma 15.4 ug/mL 10.0-40.[address] [facility] This test was developed and its performa nce characteristics determined by [facility]. It has not been cleared or approved by the Food and Drug Administration. Performed at: [address], [place], [place] [address] [address] Puller: Seng Nichols MD, Phone: [phone] ID Date Data Source [id number] 01/30/2020 09:04:00 AM EST MEDENT ([facility], ) Name Value Range Interpretation Code Description Data Trini rce(s) Supporting Document(s) Blood Urea Nitrogen 14 mg/dL 7-18 [facility] ([facility], ) Glucose, Fasting 164 mg/dL 70-100 [facility] ([facility], ) Creatinine For GFR 0.71 mg/dL 0.70-1.30 [facility] ([facility]) Glomerular Filtration Rate Laboratory test result [facility] ([facility]) <content>Units are mL/min/1.73 m2</content>
<content></content>
<content>Chronic Kidney Disease Staging per NKF:</content>
<content></content>
<content>Stage I & II GFR >=60 Normal to Mildly Decreased</content>
<content>Stage III GFR 30- 59 Moderately Decreased</content>
<content>Stage IV GFR 15-29 Severely Decreased</content>
<content>Stage V GFR <15 Very Little GFR Left</content>
<content>ESRD GFR <15 on COUNSELING SERVICES MANAGER</content>
<content></content> Sodium Level 139 meq/L 136-145 MED[facility] ([facility], ) Potassium Serum 4.6 meq/L 3.5-5.1 [facility] ([facility], ) Chloride Level 105 meq/L 98-107 [facility] ([facility], ) Calcium Level 8.9 mg/dL 8.5-10.1 [facility] ([facility], ) Carbon Dioxide Level 28 meq/L 21-32 [facility] ([facility], ) Anion Gap 6 meq/L 8-16 [facility] ([facility], ) Alt/SGPT 34 U/L 12-78 [facility] ([facility]) Ast/Sgot 15 U/L 7-37 [facility] ([facility]) Bilirubin,Total 0.2 mg/dL 0.2-1.0 [facility] ([facility]) Alkaline Phosphatase 112 U/L 45-117 [facility] ([facility]) Total Protein 7.4 GM/DL 6.4-8.2 [facility] ([facility]) Albumin 3.5 GM/DL 3.2-5.2 [facility] ([facility]) Albumin/Globulin Ratio 0.9 [facility] ([facility]) ID Date Data Source [id number] 01/30/2020 09:04:00 AM EST MEDENT ([facility]) Name Value Range Interpretation Code Description Data Trini rce(s) Supporting Document(s) Red Blood Count 4.60 10 4.30-6.10 [facility] ([facility]) White Blood Count 5.4 10 4.0-10.0 [facility] ([facility]) Hemoglobin 12.2 g/dL 13.5-17.5 [facility] ([facility]) Hematocrit 39.6 % 42.0-52.0 [facility] ([facility]) Mean Corpuscular HGB Conc 30.8 g/dL 32.0-36.5 [facility] ([facility]) Mean Corpuscular Hemoglobin 26.5 pg 27.0-33.0 [facility] ([facility]) Mean Corpuscular Volume 86.1 fl 80.0-96.0 M EDENT ([facility]) Platelet Count, Automated 547 10 150-450 MED[facility] ([facility]) Red Cell Distribution Width 14.1 % 11.5-14.5 [facility] ([facility]) Neutrophils % 47.5 % 36.0-66.0 [facility] ([facility]) Lymph % 36.6 % 24.0-44.0 [facility] ([facility]) Routt % 13.8 % 0.0-5.0 MED[facility] ([facility]) Eos % 1.1 % 0.0-3.0 [facility] ([facility]) Baso % 0.6 % 0.0-1.0 [facility] ([facility]) Immature Granulocyte % 0.4 % 0-3.0 MED[facility] ([facility]) Nucleated Red Blood Cell % 0.0 % 0-0 MED ENT ([facility]) Neutrophils # 2.5 10 1.5-8.5 MED[facility] ([facility]) Routt # 0.7 10 0.0-0.8 MED[facility] ([facility]) Eos # 0.1 10 0.0-0.5 [facility] ([facility]) Lymph # 2.0 10 1.5-5.0 [facility] ([facility]) Baso # 0.0 10 0.0-0.2 MED[facility] ([facility]) ID Date Data Source PHENYTOIN (DILANTIN) 01/30/2020 12:00:00 AM EST eCW1 ([facility]) Name Value Range Interpretation Code Description Data Trini rce(s) Supporting Document(s) 17.4 10.0-20.0 PHENYTOIN (DILANTIN) eCW1 ([facility]) ID Date Data Source Comprehensive Metabolic Profile (CMP) 01/30/2020 12:00:00 AM EST eCW1 ([facility]) Name Value Range Interpretation Code Description Data Trini rce(s) Supporting Document(s) 164 70-100 GLUCOSE, FASTING eCW1 ([facility]) 14 7-18 BLOOD UREA NITROGEN eCW1 (Count includes the [facility]) 0.71 0.70-1.30 CREATININE FOR GFR eCW1 ([facility]) > 60.0 >56 GLOMERULAR FILTRATION RATE eCW 1 ([facility]) 105 98-107 CHLORIDE LEVEL eCW1 ([facility]) 139 136-145 SODIUM LEVEL eCW1 ([facility]) 4.6 3.5-5.1 POTASSIUM SERUM eCW1 ([facility]) 28 21-32 CARBON DIOXIDE LEVEL eCW1 ([facility]) 112 45-117 ALKALINE PHOSPHATASE eCW1 ([facility]) 8.9 8.5-10.1 CALCIUM LEVEL eCW1 ([facility]) 34 12-78 ALT/SGPT eCW1 ([facility]) 15 7-37 AST/SGOT eCW1 ([facility]) 7.4 6.4-8.2 TOTAL PROTEIN [facility] [facility]) 0.9 ALBUMIN/GLOBULIN RATIO eCW1 ([facility]) 0.2 0.2-1.0 BILIRUBIN,TOTAL eCW1 ([facility]) 3.5 3.2-5.2 ALBUMIN eCW1 ([facility]) ID Date Data Source CPK CREATINE PHOSPHOKINASE 01/30/2020 12:00:00 AM EST eCW1 ( [facility]) Name Value Range Interpretation Code Description Data Trini rce(s) Supporting Document(s) 82 39-308 CPK CREATINE PHOSPHOKINASE eCW 1 ([facility]) ID Date Data Source CBC with Differential 01/30/2020 12:00:00 AM EST eCW1 ([facility]) Name Value Range Interpretation Code Description Data Trini rce(s) Supporting Document(s) 5.4 4.0-10.0 WHITE BLOOD COUNT eCW1 ([facility]) 12.2 13.5-17.5 HEMOGLOBIN eCW1 ([facility]) 4.60 4.30-6.10 RED BLOOD COUNT eCW1 ([facility]) 39.6 42.0-52.0 HEMATOCRIT eCW1 ([facility]) 86.1 80.0-96.0 MEAN CORPUSCULAR VOLUME e CW1 ([facility]) 30.8 32.0-36.5 MEAN CORPUSCULAR HGB CONC eCW1 ([facility]) 26.5 27.0-33.0 MEAN CORPUSCULAR HEMOGLOB IN eCW1 ([facility]) 14.1 11.5-14.5 RED CELL DISTRIBUTION WID TH eCW1 ([facility]) 47.5 36.0-66.0 NEUTROPHILS % eCW1 ([facility]) 13.8 0.0-5.0 MONO % eCW1 ([facility]) 547 150-450 PLATELET COUNT, AUTOMATED eCW1 ([facility]) 36.6 24.0-44.0 LYMPH % eCW1 ([facility]) 2.0 1.5-5.0 LYMPH # eCW1 ([facility]) 0.6 0.0-1.0 BASO % eCW1 ([facility]) 2.5 1.5-8.5 NEUTROPHILS # eCW1 ([facility]) 1.1 0.0-3.0 EOS % eCW1 ([facility]) 0.7 0.0-0.8 MONO # eCW1 ([facility]) 0.0 0.0-0.2 BASO # eCW1 ([facility]) 0.1 0.0-0.5 EOS # eCW1 ([facility]) ID Date Data Source PHENOBARBITAL LEVEL 01/30/2020 12:00:00 AM EST eCW1 ([facility]) Name Value Range Interpretation Code Description Data Trini rce(s) Supporting Document(s) 35.3 15.0-40.0 PHENOBARBITAL LEVEL eCW1 (Count includes the [facility]) ID Date Data Source [id number] 01/17/2020 03:27:00 PM EST [facility] Name Value Range Interpretation Code Description Data Trini rce(s) Supporting Document(s) SARS coronavirus 2 RNA [Presence] in Res piratory specimen by LORIE with probe detection [facility] This lab was ordered by [facility] a nd reported by [facility]. ID Date Data Source [id number] 01/16/2020 12:30:00 PM EST [facility] Name Value Range Interpretation Code Description Data Trini rce(s) Supporting Document(s) SARS coronavirus 2 RNA [facility] This lab was ordered by [facility] and reported by [facility]. ID Date Data Source C REACTIVE PROTEIN QUANTITATIV (At [facility]) 12/02/2019 05:56 :51 AM EDT eCW1 ([facility]) Name Value Range Interpretation Code Description Data Trini rce(s) Supporting Document(s) 1.09 C REACTIVE PROTEIN QUANTITATIV eCW1 ([facility]) ID Date Data Source ERYTHROCYTE SEDIMENTATION RATE 12/02/2019 03:51:51 AM EDT eC W1 ([facility]) Name Value Range Interpretation Code Description Data Trini rce(s) Supporting Document(s) 26 ERYTHROCYTE SEDIMENTATION RATE eCW1 ([facility]) ID Date Data Source [id number] 10/15/2019 12:14:00 [place] [address] PROGRESS NOTENAME: ANAI ARBOLEDA ROOM#: 104-1DATE OF : 1960 MR#: [id number] DATE: 10/10/19 OF SERVICE: 10/14/19UBJECTIVE: Patient was [...] pantoprazole.7. Discharge planning: Home when stable.DD: Eligio Villaseñro MD 10/14/19 13:29DT: ADELSO 10/15/19 00:06DS: Eligio Villaseñor MD 10/27/19 08:43 1 Name Value Range Interpretation Code Description Data Trini rce(s) Supporting Document(s) ID Date Data Source [id number] 10/26/2019 10:00:00 AM EDT [facility] ([facility] ) Name Value Range Interpretation Code Description Data Trini rce(s) Supporting Document(s) Phenytoin [Mass/volume] in Serum or Plasma 15.1 UG/ML 10.0-20.0 [facility] ([facility] ) <content>note:<nlbl:[email or web address]> </content>
<content></content> ID Date Data Source [id number] 10/17/2019 02:00:00 [place] [address] PHONE: [phone] FAX: [phone] Name .................. : ANAI ARBOLEDA Acct Number.................. : [id number] ROOM. ................. : 104-1 MR Number ................... : [id number] Stay type ............. : I/P Discharge Date......... ... : Admit Date ......... : 10/10/19 Admit Phys .................... : ISAEL HERNÁNDEZ Date of ....... : 1960 Family Phys ................... : RU VANEGAS Phone .................. : [phone] Age ................................ : 58 Film# .................. .:[id number] Sex ................................. : M Unsigned transcriptions are preliminary reports and do not represent a medical or legal document CHEST PORTABLE [id number] COMPLETE:10/14/19 10:22 07706 (REASON FOR CHEST: PNEUM ONIA PORTABLE CHEST X-RAY: INDICATION: Pneumonia. FINDINGS: Examination reveals prominence of the pulmonary vasculature. There is increased density identified at the left lung base, for which an underlying infiltrate is not excluded. The osseous structures demonstrate degenerative changes. IMPRESSION: Suspicion for a left basilar infiltrate. [facility]. Examination dictated by FREIDA Mcneal. Examination [...] rce(s) Supporting Document(s) ID Date Data Source [id number] 10/14/2019 09:13:00 AM EDT [facility] Name Value Range Interpretation Code Description Data Trini rce(s) Supporting Document(s) Creatine kinase [Enzymatic activity/volume] in Serum or Plas ma 1188 U/L 30 - 170 H [facility] ID Date Data Source [id number] 10/14/2019 09:13:00 AM EDT [facility] Name Value Range Interpretation Code Description Data Trini rce(s) Supporting Document(s) COMPREHENSIVE METABOLIC PANEL [facility] COMPREHENSIVE METABOLIC PANEL Sodium [Moles/volume] in Serum or Plasma 137 mEq/L 134 - 153 [facility] Potassium [Moles/volume] in Serum or Plasma 3.8 mEq/L 3.6 - 5.0 [facility] Chloride [Moles/volume] in Serum or Plasma 104 mEq/L 98 - 107 [facility] Carbon dioxide, total [Moles/volume] in Serum or Plasma 20 MEQ/L 22 - 30 L [facility] Glucose [Mass/volume] in Serum or Plasma 118 MG/DL 65 - 110 H [facility] BUN 5 MG/DL 7 - 21 [facility] Creatinine [Mass/volume] in Serum or Plasma 0.6 MG/DL 0.7 - 1.5 L [facility] BUN/CREAT 8 8 - 27 [facility] al Protein [Mass/volume] in Serum or Plasma 6.7 G/DL 6.3 - 8.2 [facility] Albumin [Mass/volume] in Serum or Plasma 3.6 G/DL 3.9 - 5.0 L [facility] Globulin [Mass/volume] in Serum by calculation 3.1 GM/DL 2.4 - 3.2 [facility] A/G RATIO 1.2 0.8 - 2.0 [facility] Calcium [Mass/volume] in Serum or Plasma 8.3 MG/DL 8.4 - 10.2 L [facility] Bilirubin.total [Mass/volume] in Serum or Plasma <0.7 MG/DL 0.2 - 1.3 [facility] Alkaline phosphatase [Enzymatic activity/volume] in Serum or Plasma 107 U/L 38 - 126 [facility] Aspartate aminotransferase [Enzymatic activity/volume] in Serum or Plasma 27 U/L 5 - 40 [facility] Alanine aminotransferase [Enzymatic activity/volume] in Seru m or Plasma 21 U/L 7 - 56 [facility] Anion gap 3 in Serum or Plasma 13.0 mmol/L 8.0 - 16.0 [facility] AGE 58 yrs [facility] NON-AA GFR >60 mL/min [facility] ital AFR AMER GFR >60 mL/min [facility] Male GFR In terprentation 20-49 [...] >32 mL/min Normal ID Date Data Source [id number] 10/14/2019 08:59:00 AM EDT [facility] Name Value Range Interpretation Code Description Data Trini rce(s) Supporting Document(s) CBC W/AUTOMATED DIFF [facility] COMPLETE BLOOD COUNT Leukocytes [#/volume] in Blood by Automated count 7.0 10^3/uL 4.2 - 1 1.0 [facility] Erythrocytes [#/volume] in Blood by Automated count 4.16 10^6/uL 4. 50 - 6.30 L [facility] Hemoglobin [Mass/volume] in Blood 12.1 g/dL 14.0 - 16.0 L [facility] Hematocrit [Volume Fraction] of Blood by Automated count 36.2 % 4 1.0 - 51.0 L [facility] Erythrocyte mean corpuscular volume [Entitic volume] by Auto mated count 87.0 fL 80.0 - 94.0 [facility] Erythrocyte mean corpuscular hemoglobin [Entitic mass] by Automated count 29.1 pg 27.0 - 34.0 [facility] Erythrocyte mean corpuscular hemoglobin concentration [Mass/volume] by Automated count 33.4 g/dL 31.0 - 36.0 [facility] Erythrocyte distribution width [Ratio] by Automated count 13.8 % 11.5 - 14.8 [facility] Platelets [#/volume] in Blood by Automated count 251 10^3/uL 150 - 45 0 [facility] Platelet mean volume [Entitic volume] in Blood by Automated count 9.7 fL 7.4 - 10.4 [facility] Neutrophils/100 leukocytes in Blood by Automated count 59.4 % 37. 0 - 80.0 [facility] Lymphocytes/100 leukocytes in Blood by Manual count 22.9 % 25.0 - 40.0 L [facility] Monocytes/100 leukocytes in Blood by Automated count 12.1 % 3.0 - 8.0 H [facility] Eosinophils/100 leukocytes in Blood by Automated count 4.9 % 0.0 - 7.0 [facility] Basophils/100 leukocytes in Blood by Automated count 0.3 % 0.0 - 2.0 [facility] %IG 0.4 % 0.0 - 0.0 [facility] %NRBC 0.0 % 0.0 - 0.0 [facility] al Neutrophils [#/volume] in Blood by Automated count 4.13 10^3/uL 2.00 - 6.90 [facility] Lymphocytes [#/volume] in Blood by Automated count 1.59 10^3/uL 0.60 - 3.40 [facility] Monocytes [#/volume] in Blood by Automated count 0.84 10^3/uL 0.00 - 0.90 [facility] Eosinophils [#/volume] in Blood by Automated count 0.34 10^3/uL 0.00 - 0.70 [facility] Basophils [#/volume] in Blood by Automated count 0.02 10^3/uL 0.00 - 0.20 [facility] #IG 0.03 10^3/uL 0.00 - 0.10 [facility] ospital #NRBC 0.00 10^3/uL 0.00 - 0.00 [facility] ospital MANUAL DIFF NOT INDICATED [facility] RBC MORPH NOT INDICATED [facility] spital ID Date Data Source [id number] 10/17/2019 11:14:00 AM EDT [facility] Name Value Range Interpretation Code Description Data Trini rce(s) Supporting Document(s) SARS-CoV-2, LORIE Not Detected Not Detected [facility] This test was developed and its performa nce characteristics determinedby [facility] [place]. This test has not been FDA cleared [...] in this assay. ID Date Data Source [id number] 10/13/2019 07:35:00 AM EDT [facility] Name Value Range Interpretation Code Description Data Trini rce(s) Supporting Document(s) COMPREHENSIVE METABOLIC PANEL [facility] COMPREHENSIVE METABOLIC PANEL Sodium [Moles/volume] in Serum or Plasma 139 mEq/L 134 - 153 [facility] Potassium [Moles/volume] in Serum or Plasma 3.8 mEq/L 3.6 - 5.0 [facility] Chloride [Moles/volume] in Serum or Plasma 104 mEq/L 98 - 107 [facility] Carbon dioxide, total [Moles/volume] in Serum or Plasma 23 MEQ/L 22 - 30 [facility] Glucose [Mass/volume] in Serum or Plasma 96 MG/DL 65 - 110 [facility] BUN 6 MG/DL 7 - 21 L [facility] Creatinine [Mass/volume] in Serum or Plasma 0.6 MG/DL 0.7 - 1.5 L [facility] BUN/CREAT 10 8 - 27 [facility] Protein [Mass/volume] in Serum or Plasma 6.7 G/DL 6.3 - 8.2 [facility] Albumin [Mass/volume] in Serum or Plasma 3.7 G/DL 3.9 - 5.0 L [facility] Globulin [Mass/volume] in Serum by calculation 3.0 GM/DL 2.4 - 3.2 [facility] A/G RATIO 1.2 0.8 - 2.0 [facility] Calcium [Mass/volume] in Serum or Plasma 8.3 MG/DL 8.4 - 10.2 L [facility] Bilirubin.total [Mass/volume] in Serum or Plasma <0.7 MG/DL 0.2 - 1.3 [facility] Alkaline phosphatase [Enzymatic activity/volume] in Serum or Plasma 99 U/L 38 - 126 [facility] Aspartate aminotransferase [Enzymatic activity/volume] in Serum or Plasma 26 U/L 5 - 40 [facility] Alanine aminotransferase [Enzymatic activity/volume] in Seru m or Plasma 19 U/L 7 - 56 [facility] Anion gap 3 in Serum or Plasma 12.0 mmol/L 8.0 - 16.0 [facility] AGE 58 yrs [facility] al NON-AA GFR >60 mL/min [facility] ital AFR AMER GFR >60 mL/min [facility] spital Male GFR In terprentation 20-49 [...] >32 mL/min Normal ID Date Data Source [id number] 10/13/2019 07:35:00 AM EDT [facility] Name Value Range Interpretation Code Description Data Trini rce(s) Supporting Document(s) Creatine kinase [Enzymatic activity/volume] in Serum or Plasma 9 51 U/L 30 - 170 H [facility] ID Date Data Source [id number] 10/13/2019 07:18:00 AM EDT [facility] Name Value Range Interpretation Code Description Data Trini rce(s) Supporting Document(s) CBC W/AUTOMATED DIFF [facility] COMPLETE BLOOD COUNT Leukocytes [#/volume] in Blood by Automated count 6.8 10^3/uL 4.2 - 1 1.0 [facility] Erythrocytes [#/volume] in Blood by Automated count 4.02 10^6/uL 4. 50 - 6.30 L [facility] Hemoglobin [Mass/volume] in Blood 11.6 g/dL 14.0 - 16.0 L [facility] Hematocrit [Volume Fraction] of Blood by Automated count 34.6 % 4 1.0 - 51.0 L [facility] Erythrocyte mean corpuscular volume [Entitic volume] by Auto mated count 86.1 fL 80.0 - 94.0 [facility] Erythrocyte mean corpuscular hemoglobin [Entitic mass] by Automated count 28.9 pg 27.0 - 34.0 [facility] Erythrocyte mean corpuscular hemoglobin concentration [Mass/volume] by Automated count 33.5 g/dL 31.0 - 36.0 [facility] Erythrocyte distribution width [Ratio] by Automated count 13.3 % 11.5 - 14.8 [facility] Platelets [#/volume] in Blood by Automated count 229 10^3/uL 150 - 45 0 [facility] Platelet mean volume [Entitic volume] in Blood by Automated count 9.7 fL 7.4 - 10.4 [facility] Neutrophils/100 leukocytes in Blood by Automated count 50.8 % 37. 0 - 80.0 [facility] Lymphocytes/100 leukocytes in Blood by Manual count 27.5 % 25.0 - 40.0 [facility] Monocytes/100 leukocytes in Blood by Automated count 16.3 % 3.0 - 8.0 H [facility] Eosinophils/100 leukocytes in Blood by Automated count 4.9 % 0.0 - 7.0 [facility] Basophils/100 leukocytes in Blood by Automated count 0.4 % 0.0 - 2.0 [facility] %IG 0.1 % 0.0 - 0.0 [facility] %NRBC 0.0 % 0.0 - 0.0 [facility] al Neutrophils [#/volume] in Blood by Automated count 3.45 10^3/uL 2.00 - 6.90 [facility] Lymphocytes [#/volume] in Blood by Automated count 1.87 10^3/uL 0.60 - 3.40 [facility] Monocytes [#/volume] in Blood by Automated count 1.11 10^3/uL 0.00 - 0.90 H [facility] Eosinophils [#/volume] in Blood by Automated count 0.33 10^3/uL 0.00 - 0.70 [facility] Basophils [#/volume] in Blood by Automated count 0.03 10^3/uL 0.00 - 0.20 [facility] #IG 0.01 10^3/uL 0.00 - 0.10 [facility] ospital #NRBC 0.00 10^3/uL 0.00 - 0.00 [facility] ospital MANUAL DIFF SEE BELOW [facility] ital Segmented neutrophils/100 leukocytes in Blood by Manual count 53 % 37 - 80 [facility] %LYMPH 29 % 25 - 40 [facility] %MONO 13 % 3 - 8 H [facility] %EOS 5 % 0 - 7 [facility] RBC MORPH NOT INDICATED [facility] spital ID Date Data Source [id number] 10/12/2019 08:24:00 AM EDT [facility] Name Value Range Interpretation Code Description Data Trini rce(s) Supporting Document(s) CBC W/AUTOMATED DIFF [facility] COMPLETE BLOOD COUNT Leukocytes [#/volume] in Blood by Automated count 7.9 10^3/uL 4.2 - 1 1.0 [facility] Erythrocytes [#/volume] in Blood by Automated count 3.74 10^6/uL 4. 50 - 6.30 L [facility] Hemoglobin [Mass/volume] in Blood 10.7 g/dL 14.0 - 16.0 L [facility] Hematocrit [Volume Fraction] of Blood by Automated count 32.4 % 4 1.0 - 51.0 L [facility] Erythrocyte mean corpuscular volume [Entitic volume] by Auto mated count 86.6 fL 80.0 - 94.0 [facility] Erythrocyte mean corpuscular hemoglobin [Entitic mass] by Automated count 28.6 pg 27.0 - 34.0 [facility] Erythrocyte mean corpuscular hemoglobin concentration [Mass/volume] by Automated count 33.0 g/dL 31.0 - 36.0 [facility] Erythrocyte distribution width [Ratio] by Automated count 13.7 % 11.5 - 14.8 [facility] Platelets [#/volume] in Blood by Automated count 207 10^3/uL 150 - 45 0 [facility] Platelet mean volume [Entitic volume] in Blood by Automated count 10.0 fL 7.4 - 10.4 [facility] Neutrophils/100 leukocytes in Blood by Automated count 53.2 % 37. 0 - 80.0 [facility] Lymphocytes/100 leukocytes in Blood by Manual count 28.8 % 25.0 - 40.0 [facility] Monocytes/100 leukocytes in Blood by Automated count 14.8 % 3.0 - 8.0 H [facility] Eosinophils/100 leukocytes in Blood by Automated count 2.8 % 0.0 - 7.0 [facility] 0.3 %IG 0.1 % 0.0 - 0.0 [facility] %NRBC 0.0 % 0.0 - 0.0 [facility] al Neutrophils [#/volume] in Blood by Automated count 4.23 10^3/uL 2.00 - 6.90 [facility] Lymphocytes [#/volume] in Blood by Automated count 2.28 10^3/uL 0.60 - 3.40 [facility] Monocytes [#/volume] in Blood by Automated count 1.17 10^3/uL 0.00 - 0.90 H [facility] Eosinophils [#/volume] in Blood by Automated count 0.22 10^3/uL 0.00 - 0.70 [facility] Basophils [#/volume] in Blood by Automated count 0.02 10^3/uL 0.00 - 0.20 [facility] #IG 0.01 10^3/uL 0.00 - 0.10 [facility] ospital #NRBC 0.00 10^3/uL 0.00 - 0.00 [facility] ospital MANUAL DIFF SEE BELOW [facility] ital Segmented neutrophils/100 leukocytes in Blood by Manual count 51 % 37 - 80 [facility] %LYMPH 39 % 25 - 40 [facility] al %MONO 5 % 3 - 8 [facility] al %EOS 2 % 0 - 7 [facility] al 3 RBC MORPH NOT INDICATED [facility] spital ID Date Data Source [id number] 10/12/2019 08:15:00 AM EDT [facility] Name Value Range Interpretation Code Description Data Trini rce(s) Supporting Document(s) BASIC METABOLIC PANEL [facility] BASIC METABOLIC PANEL Sodium [Moles/volume] in Serum or Plasma 139 mEq/L 134 - 153 [facility] Potassium [Moles/volume] in Serum or Plasma 3.8 mEq/L 3.6 - 5.0 [facility] Chloride [Moles/volume] in Serum or Plasma 106 mEq/L 98 - 107 [facility] Carbon dioxide, total [Moles/volume] in Serum or Plasma 23 MEQ/L 22 - 30 [facility] Glucose [Mass/volume] in Serum or Plasma 94 MG/DL 65 - 110 [facility] BUN 7 MG/DL 7 - 21 [facility] Creatinine [Mass/volume] in Serum or Plasma 0.6 MG/DL 0.7 - 1.5 L [facility] BUN/CREAT 12 8 - 27 [facility] Calcium [Mass/volume] in Serum or Plasma 8.4 MG/DL 8.4 - 10.2 [facility] Anion gap 3 in Serum or Plasma 10.0 mmol/L 8.0 - 16.0 [facility] AGE 58 yrs [facility] al AFR AMER GFR >60 mL/min [facility] spital NON-AA GFR >60 mL/min [facility] ital Male GFR Inter prentation 20-49 yrs [...] >32 mL/min Normal ID Date Data Source [id number] 10/12/2019 08:15:00 AM EDT [facility] Name Value Range Interpretation Code Description Data Trini rce(s) Supporting Document(s) Creatine kinase [Enzymatic activity/volume] in Serum or Plasma 7 98 U/L 30 - 170 H [facility] ID Date Data Source [id number] 10/11/2019 03:46:00 PM EDT [facility] Name Value Range Interpretation Code Description Data Trini rce(s) Supporting Document(s) OCCULT BLOOD NEGATIVE NORMAL: NEGATIVE [facility] OCCULT BLOOD REENTER NEGATIVE NORMAL: NEGATIVE [facility] { HEMOCCULT LOT # [id number] ){ LOT EXP DATE 05 ){ PROCEDURAL CONTROL POS/NEG VALID ) ID Date Data Source [id number] 10/11/2019 03:44:00 PM EDT [facility] Name Value Range Interpretation Code Description Data Trini rce(s) Supporting Document(s) OCCULT BLOOD DIAGNOSTIC 3 SLIDES [facility] SPOKE WITH TABATHA. WILL REORDER{ DA TE COLLECTED{ DATE COLLECTED{ DATE COLLECTED{ HEMOCCULT LOT # ){ LOT EXP DATE ) CEDURAL CONTROL PO /NEG [facility] ID Date Data Source [id number] 10/11/2019 10:25:00 AM T [facility] Name Value Range Interpretation Code Description Data Trini rce(s) Supporting Document(s) URINALYSIS [facility] alejandro URINALYSIS SOURCE R [facility] COLOR yellow NORMAL: Yellow [facility] CLARITY clear NORMAL: Clear [facility] Specific gravity of Urine by Test strip 1.015 1.001 - 1.030 [facility] pH 6 5 - 9 [facility] al Glucose [Mass/volume] in Urine by Test strip NORM NORMAL: Negat [facility] Bilirubin.total [Presence] in Urine by Test strip NEG NORMAL: Negative [facility] Ketones [Presence] in Urine by Test strip NEG NORMAL: Negative [facility] Protein [Mass/volume] in Urine by Test strip 15 NORMAL: Negat [facility] Nitrite [Presence] in Urine by Test strip NEG NORMAL: Negative [facility] BLOOD 150 NORMAL: Negative [facility] Leukocyte esterase [Presence] in Urine by Test strip 500 JIMMY L: Negative [facility] Urobilinogen [Mass/volume] in Urine by Test strip NOR less arthur n 1.0 mg/dL [facility] MICROSCOPIC See Below [facility] ital WBC 5 - 7 NORMAL: NONE SEEN [facility] Erythrocytes [#/volume] in Urine by Test strip 1 - 3 NORMAL: NON E SEEN [facility] Bacteria [Presence] in Urine sediment by Light microscopy Tr colt NORMAL: NONE SEEN [facility] Mucus [Presence] in Urine sediment by Light microscopy Trace NORMAL: NONE SEEN [facility] ID Date Data Source [id number] 10/11/2019 07:22:00 AM EDT [facility] Name Value Range Interpretation Code Description Data Trini rce(s) Supporting Document(s) CBC W/AUTOMATED DIFF [facility] COMPLETE BLOOD COUNT Leukocytes [#/volume] in Blood by Automated count 9.3 10^3/uL 4.2 - 1 1.0 [facility] Erythrocytes [#/volume] in Blood by Automated count 4.00 10^6/uL 4. 50 - 6.30 L [facility] Hemoglobin [Mass/volume] in Blood 11.6 g/dL 14.0 - 16.0 L [facility] Hematocrit [Volume Fraction] of Blood by Automated count 35.0 % 4 1.0 - 51.0 L [facility] Erythrocyte mean corpuscular volume [Entitic volume] by Auto mated count 87.5 fL 80.0 - 94.0 [facility] Erythrocyte mean corpuscular hemoglobin [Entitic mass] by Automated count 29.0 pg 27.0 - 34.0 [facility] [facility] Eryth[facility] mean corpuscular hemoglobin concentration [Mass/volume] by Automated count 33.1 g/dL 31.0 - 36.0 [facility] Erythrocyte distribution width [Ratio] by Automated count 13.8 % 11.5 - 14.8 [facility] Platelets [#/volume] in Blood by Automated count 254 10^3/uL 150 - 45 0 [facility] Platelet mean volume [Entitic volume] in Blood by Automated count 10.6 fL 7.4 - 10.4 H [facility] Neutrophils/100 leukocytes in Blood by Automated count 60.7 % 37. 0 - 80.0 [facility] Lymphocytes/100 leukocytes in Blood by Manual count 22.2 % 25.0 - 40.0 L [facility] Monocytes/100 leukocytes in Blood by Automated count 15.6 % 3.0 - 8.0 H [facility] Eosinophils/100 leukocytes in Blood by Automated count 1.1 % 0.0 - 7.0 [facility] Basophils/100 leukocytes in Blood by Automated count 0.2 % 0.0 - 2.0 [facility] %IG 0.2 % 0.0 - 0.0 H [facility] %NRBC 0.0 % 0.0 - 0.0 [facility] al Neutrophils [#/volume] in Blood by Automated count 5.66 10^3/uL 2.00 - 6.90 [facility] Lymphocytes [#/volume] in Blood by Automated count 2.07 10^3/uL 0.60 - 3.40 [facility] Monocytes [#/volume] in Blood by Automated count 1.45 10^3/uL 0.00 - 0.90 H [facility] Eosinophils [#/volume] in Blood by Automated count 0.10 10^3/uL 0.00 - 0.70 [facility] Basophils [#/volume] in Blood by Automated count 0.02 10^3/uL 0.00 - 0.20 [facility] #IG 0.02 10^3/uL 0.00 - 0.10 [facility] ospital #NRBC 0.00 10^3/uL 0.00 - 0.00 [facility] o[facility]ital MANUAL DIFF SEE BELOW [facility] ital Segmented neutrophils/100 leukocytes in Blood by Manual count 76 % 37 - 80 [facility] %LYMPH 12 % 25 - 40 L [facility] %MONO 10 % 3 - 8 [facility] %EOS 2 % 0 - 7 [facility] RBC MORPH NOT INDICATED [facility] spital ID Date Data Source [id number] 10/11/2019 06:36:00 AM EDT [facility] Name Value Range Interpretation Code Description Data Trini rce(s) Supporting Document(s) Creatine kinase [Enzymatic activity/volume] in Serum or Plas ma 1145 U/L 30 - 170 H [facility] ID Date Data Source [id number] 10/11/2019 06:36:00 AM EDT [facility] Name Value Range Interpretation Code Description Data Trini rce(s) Supporting Document(s) BASIC METABOLIC PANEL [facility] BASIC METABOLIC PANEL Sodium [Moles/volume] in Serum or Plasma 140 mEq/L 134 - 153 [facility] Potassium [Moles/volume] in Serum or Plasma 4.0 mEq/L 3.6 - 5.0 [facility] Chloride [Moles/volume] in Serum or Plasma 104 mEq/L 98 - 107 [facility] Carbon dioxide, total [Moles/volume] in Serum or Plasma 24 MEQ/L 22 - 30 [facility] Glucose [Mass/volume] in Serum or Plasma 89 MG/DL 65 - 110 [facility] BUN 8 MG/DL 7 - 21 [facility] Creatinine [Mass/volume] in Serum or Plasma 0.7 MG/DL 0.7 - 1.5 [facility] BUN/CREAT 11 8 - 27 [facility] Calcium [Mass/volume] in Serum or Plasma 8.8 MG/DL 8.4 - 10.2 [facility] Anion gap 3 in Serum or Plasma 12.0 mmol/L 8.0 - 16.0 [facility] AGE 58 yrs [facility] al AFR AMER GFR >60 mL/min [facility] spital NON-AA GFR >60 mL/min [facility] ital Male GFR Inter prentation 20-49 yrs [...] >32 mL/min Normal ID Date Data Source [id number] 10/09/2019 07:15:00 PM EDT [facility] 1 OrderSheet [facility] Emergency Department [address] [place] [address] Phone #: ext- [phone] 10/09/2019 19:00 Patient: [...] STAT 19:30 10/09/2019 19:32 Devika, 2 OrderSheet [facility] Emergency Department [address] [place] [address] Phone #: ext- [phone] 10/09/2019 19:00 Patient: NKECHI OSPINA Sex: M : 1960 Age: 32yy53f X2 (Sched Reese Collado R.N.19:40 10/09/2019) Physician;DIAGNOSTIC [...] Description Priority Entered Acknowledged Initialed 3 OrderSheet [facility] Emergency Department [address] [place] [address] Phone #: ext- [phone] 10/09/2019 19:00 Patient: [...] rce(s) Supporting Document(s) ID Date Data Source [id number] 10/09/2019 07:15:00 PM EDT [facility] 1 Medication Reconciliation Report [facility] Emergency Department [address] [place] [address] Phone #: ext- [phone] 10/09/2019 19:00 Patient: NKECHI OSPINA Sex: M [...] Home Medication information: 2 Medication Reconciliation Report [facility] Emergency Department [address] [place] [address] Phone #: ext- [phone] 10/09/2019 19:00 Patient: NKECHI OSPINA Sex: M : 1960 Age: 58ypatient's correction recordThe following Medications were given to the [...] rce(s) Supporting Document(s) ID Date Data Source [id number] 10/09/2019 07:15:00 PM EDT [facility] 1 Medication Administration Record [facility] Emergency Department [address] [place] [address] Phone #: ext- [phone] 10/09/2019 19:00 Patient: NKECHI OSPINA Sex: M : 1960 Age: 58yWeight: 66.2 kgHeight/Length: 64 inBMI: 25.1ALLERGIES: None Date/Time Medication Administered Medication OrderedStart IV NS IV NS : Bolus 1000 mL, then 40122:54 10/09/2019 Dose: IV Fluids mL/hr (can be titrated perSTobias nieves, R.N. Rate: 1000 mL/hr over 1 hour(s) additional physician instruction)---- Dispensed: 1000 mL bagStop Site: #1 left AC21:21 10/09/2019SoTobias iglesias, R.N.Start IV NS IV NS : Bolus 1000 mL, then 58480:24 10/09/2019 Dose: IV Fluids mL/hr (can be titrated perSorbTobias pederson, R.N. Rate: 125 mL/hr over 8 hour(s) additional physician instruction)---- Dispensed: 1000 mL bagStop Site: #1 left AC01:00 10/10/2019Qian Bernard R.N.Given ZOFRAN [IVP] (ONDANSETRON HCL) Zofran 4 mg IVP X 1 dose: 4 mg19:53 10/09/2019 Dose: 4 mg IVP (NOW x1)Tobias Fortune R.N. Site: #1 left ACStart ROCEPHIN (1GM/50ML) [IVPB] Rocephin (1gm/50mL) IVPB 498826:43 10/09/2019 (CEFTRIAXONE SODIUM) mg with Dextrose 50 [...] rce(s) Supporting Document(s) ID Date Data Source [id number] 10/09/2019 07:15:00 PM EDT [facility] 1 General Instructions [facility] Emergency Department [address] [place] [address] Phone #: ext- [phone] 10/09/2019 19:00 Patient: NKECHI OSPINA Sex: M : 1960 Age: 58yBronchopneumonia. No hypoxemia or respiratory failure.Acute urinary tract infection with cystitis. No hematuria. Not associated with indwelling catheter orobstruction.(Electronically signed by Reese Landers, Physician 10/10/2019 05:43) Name Value Range Interpretation Code Description Data Trini rce(s) Supporting Document(s) ID Date Data Source [id number] 10/09/2019 07:15:00 PM EDT [facility] 1 Clinical Report - Nurses [facility] Emergency Department [address] [place] [address] Phone #: [phone] ext- [phone] 10/09/2019 19:00 Patient: NKECHI OSPINA Sex: M : 1960 Age: 58yTRIAGEArrived by private vehicle. 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 Accompanied by director of medical education. [facility], vomiting x1 and lethargy that started today. director of medical education says emesis was black).Triage time: 19:06 10/09/2019. Acuity: LEVEL 3.Chief Complaint: FEVER and "NOT FEELING WELL".Alert. 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 (at 5pm).SEPSIS SCREEN: SIRS Screen negative. [...] Harris RN. 2 Clinical Report - Nurses [facility] Emergency Department [address] [place] [address] Phone #: ext- [phone] 10/09/2019 19:00 Patient: NKECHI OSPINA Sex: M : 1960 Age: 58yPROBLEMS:MRSA.Urinary Incontinence.Osteoporosis.Legal blindness.Cerebral Palsy.Constipation.Seizure Disorder.Hypertension.Intellectual functioning disability. --19:10/09/19 Lakisha Harris RN.Medication/allergy information source: the patient's correction record. --19:10/09/19 Lakisha Harris RN.ADDITIONAL SURGERIES:no known surgeries.HistorySOCIAL HX: Never smoker. [...] completed. No skin integrity riskidentified. --19:10/09/19 Lakisha Harris RN.PHYSICAL ASSESSMENT 3 Clinical Report - Nurses [facility] Emergency Department [address] [place] [address] Phone #: ext- [phone] 10/09/2019 19:00 Patient: [...] to CT by stretcher with nurse and software support technician. --20:29 10/09/19 Tobias Fortune R.N. 20:36 10/09/19. Patient returned from CT by stretcher with software support technician. --20:51 10/09/19 Tobias Fortune R.N. Critical value relayed by (21:17 10/09/2019). Critical value received by [facility]. Lactate level: 2.2. Critical value read [...] feels better. 4 Clinical Report - Nurses [facility] Emergency Department [address] [place] [address] Phone #: ext- [phone] 10/09/2019 19:00 Patient: [...] Bernard R.N. 5 Clinical Report - Nurses [facility] Emergency Department [address] [place] [address] Phone #: ext- [phone] 10/09/2019 19:00 Patient: [...] Patient verbalized understanding. Written instructions provided in Croatian. The patient was discharged home. He left [...] Bernard R.N. 6 Clinical Report - Nurses [facility] Emergency Department [address] [place] [address] Phone #: ext- [phone] 10/09/2019 19:00 Patient: NKECHI OSPINA Sex: M : 1960 Age: 58yLocked/Released at 10/10/2019 02:19 by Qian Bernard R.N. Name Value Range Interpretation Code Description Data Trini rce(s) Supporting Document(s) ID Date Data Source [id number] 10/09/2019 07:15:00 PM EDT [facility] 1 Clinical Report - Physicians/Mid Levels [facility] Emergency Department [address] [place] [address] Phone #: ext- [phone] 10/09/2019 19:00 Patient: NKECHI OSPINA Sex: M [...] 99.3 2 Clinical Report - Physicians/Mid Levels [facility] Emergency Department [address] [place] [address] Phone #: ext- [phone] 10/09/2019 19:00 Patient: NKECHI OSPINA Sex: M [...] process. Urinalysis: (SABRINA: 10/09/2019 22:30) ( [facility]37[facility] Final results Test Result Flag [...] NONE Troponin-T: (SABRINA: 10/09/2019 19:45) ( [facility] 10/09/2019 20:24) Final results Test Result Flag Units (Reference) TROPONIN T <0.01 NG/ML (0.00 - 0.10) TROPONIN T0.1 ng/ml Recommended as the clinical threshold value Khari King 3 Clinical Report - Physicians/Mid Levels [facility] Emergency Department [address] [place] [address] Phone #: ext- [phone] 10/09/2019 19:00 Patient: [...] 2.0) 4 Clinical Report - Physicians/Mid Levels [facility] Emergency Department [address] [place] [address] Phone #: ext- [phone] 10/09/2019 19:00 Patient: NKECHI OSPINA Sex: M [...] Male GFR Interprentation 20-49 yrs >60 mL/min Dazqzh74-00 yrs >56 mL/min Normal 60-69 yrs >49 mL/min Normal 70-79yrs>42 mL/min Normal 80 and above >35 mL/min Normal Female GFRInterpretation 20-39 yrs >60 mL/min Normal 40-49 yrs >58 mL/minNormal 50-59 yrs >51 mL/min Normal 60-69 yrs >45 mL/min Gjrhnd16-52 yrs >39 mL/min Normal 80 and above [...] LACTIC ACID (LACTATE) RESULTS CALLED TO ALE [id number] TEST [place] [address] CLIA# [id number] SEE SCANNED REPORTLipase: (SABRINA: 10/09/2019 19:45) ( MsgRcvd 10/09/2019 20:24) Final results Test Result Flag Units (Reference) LIPASE 11 L U/L (13 - 60)CT Head W/O Cont: (SABRINA: 10/09/2019 19:30) ( NvgRcvd 10/09/2019 21:13) Final resultsCT HEAD W/O CONTRASTReason(s): Head InjuryTRANSPORTATION: S IV? O2? Oxygen?(No) Room: ED Exam CT HEAD W/[place] [address] ---------NAME--------- NUMBER SEX AGE ADMIT DISC. XRAY# F/C TYPE RIPPLE NKECHI [id number] M 58 10/09/19 20 7708 MB4 E/R DATE OF : 1960 M/R# [id number] PH#: [phone] TR-1B LOCATION: EMERGENCY DEPT TRANSCRIBED: 10/09/19 21:[address] HEAD W/O CONTRAST [id number] COMPLETED:10/09/19 21:13 yaritza [id number] Reason(s): Head Injury Head Pain Headache PHYSICIAN: LEESA BR 5 Clinical Report - Physicians/Mid Levels [facility] Emergency Department [address] [place] [address] Phone #: ext- [phone] 10/09/2019 19:00 [id number] Sex: M : 1960 Age: 58y R [...] 21:12 6 Clinical Report - Physicians/Mid Levels [facility] Emergency Department [address] [place] [address] Phone #: ext- [phone] 10/09/2019 19:00 Patient: NKECHI OSPINA Sex: M : 1960 Age: 58yCT Chest W/O Cont: (SABRINA: 10/09/2019 19:30) ( MsgRcvd 10/09/2019 21:41) Final resultsCT THORAX W/O CONTRASTReason(s): CoughTRANSPORTATION: S IV? O2? Oxygen?(No) Room: ED Exam CT THORAX W/[place] [address] ---------NAME--------- NUMBER SEX AGE ADMIT DISC. XRAY# F/C TYPE ANAI ARBOLEDA [id number] M 58 10/09/19 [id number] MB4 E/R DATE OF : 1960 M/R# [id number] #: [id number] TR-1B LOCATION: EMERGENCY DEPT TRANSCRIBED: 10/09/19 21:[address] THORAX W/O CONTRAST [id number] COMPLETED:10/09/19 21:41 yaritza [id number] Reason(s): Cough Fever PHYSICIAN: LEESA BR R [...] was 7 Clinical Report - Physicians/Mid Levels [facility] Emergency Department [address] [place] [address] Phone #: ext- [phone] 10/09/2019 19:00 Patient: NKECHI OSPINA Sex: M [...] ABD //T// PELV W/O ORAL [place] [address] ---------NAME--------- NUMBER SEX AGE ADMIT DISC. XRAY# F/C TYPE ANAI ARBOLEDA [id number] M 58 10/09/19 [id number] MB4 E/R DATE OF : 1960 M/R# [id number] #: [id number] TR-1B LOCATION: EMERGENCY DEPT TRANSCRIBED: 10/09/19 21:[address] ABD //T// PELV W/O ORAL W/[place] [id number] COMPLETED:10/09/19 21:51 yaritza [id number] Reason(s): Abdominal Pain Vomiting PHYSICIAN: LEESA BR [...] evident. PANCREAS: Unremarkable. 8 Clinical Report - Physicians/Health System Emergency Department [address] [place] [address] Phone #: ext- [phone] 10/09/2019 19:00 -------- [...] and fluid IV and he will need [facility] personnel at bedside at all times to advocate for him. I will call Dr. Reilly (Hospitalist) now for admission. Critical care performed (130 minutes). Time is exclusive of separately billable procedures. Time includes: direct patient care, patient reassessment, coordination of patient care, interpretation of data (laboratory 9 Clinical Report - Physicians/Mid Levels [facility] Emergency Department [address] [place] [address] Phone #: ext- [phone] 10/09/2019 19:00 Patient: NKECHI OSPINA Sex: M [...] rce(s) Supporting Document(s) ID Date Data Source [id number] 10/10/2019 07:41:00 AM EDT [facility] Name Value Range Interpretation Code Description Data [facility] rce(s) Supporting Document(s) CBC W/AUTOMATED DIFF [facility] COMPLETE BLOOD COUNT Leukocytes [#/volume] in Blood by Automated count 11.6 10^3/uL 4.2 - 11.0 H [facility] Erythrocytes [#/volume] in Blood by Automated count 3.76 10^6/uL 4. 50 - 6.30 L [facility] Hemoglobin [Mass/volume] in Blood 10.9 g/dL 14.0 - 16.0 L [facility] Hematocrit [Volume Fraction] of Blood by Automated count 32.9 % 4 1.0 - 51.0 L [facility] Erythrocyte mean corpuscular volume [Entitic volume] by Auto mated count 87.5 fL 80.0 - 94.0 [facility] Erythrocyte mean corpuscular hemoglobin [Entitic mass] by Automated count 29.0 pg 27.0 - 34.0 [facility] Erythrocyte mean corpuscular hemoglobin concentration [Mass/volume] by Automated count 33.1 g/dL 31.0 - 36.0 [facility] Erythrocyte distribution width [Ratio] by Automated count 13.7 % 11.5 - 14.8 [facility] Platelets [#/volume] in Blood by Automated count 247 10^3/uL 150 - 45 0 [facility] Platelet mean volume [Entitic volume] in Blood by Automated count 10.5 fL 7.4 - 10.4 H [facility] Neutrophils/100 leukocytes in Blood by Automated count 66.8 % 37. 0 - 80.0 [facility] Lymphocytes/100 leukocytes in Blood by Manual count 21.9 % 25.0 - 40.0 L [facility] Monocytes/100 leukocytes in Blood by Automated count 10.6 % 3.0 - 8.0 H [facility] Eosinophils/100 leukocytes in Blood by Automated count 0.2 % 0.0 - 7.0 [facility] Basophils/100 leukocytes in Blood by Automated count 0.2 % 0.0 - 2.0 [facility] %IG 0.3 % 0.0 - 0.0 H [facility] %NRBC 0.0 % 0.0 - 0.0 [facility] al Neutrophils [#/volume] in Blood by Automated count 7.74 10^3/uL 2.00 - 6.90 H [facility] Lymphocytes [#/volume] in Blood by Automated count 2.54 10^3/uL 0.60 - 3.40 [facility] Monocytes [#/volume] in Blood by Automated count 1.23 10^3/uL 0.00 - 0.90 H [facility] Eosinophils [#/volume] in Blood by Automated count 0.02 10^3/uL 0.00 - 0.70 [facility] Basophils [#/volume] in Blood by Automated count 0.02 10^3/uL 0.00 - 0.20 [facility] #IG 0.03 10^3/uL 0.00 - 0.10 [facility] ospital #NRBC 0.00 10^3/uL 0.00 - 0.00 [facility] ospital MANUAL DIFF SEE BELOW [facility] ital Segmented neutrophils/100 leukocytes in Blood by Manual count 75 % 37 - 80 [facility] %LYMPH 18 % 25 - 40 [facility] %MONO 6 % 3 - 8 [facility] %EOS 1 % 0 - 7 [facility] RBC MORPH NOT INDICATED [facility] ID Date Data Source [id number] 10/10/2019 07:17:00 AM EDT [facility] Name Value Range Interpretation Code Description Data Trini rce(s) Supporting Document(s) Creatine kinase [Enzymatic activity/volume] in Serum or Plas ma 1461 U/L 30 - 170 H [facility] ID Date Data Source [id number] 10/10/2019 07:17:00 AM EDT [facility] Name Value Range Interpretation Code Description Data Trini rce(s) Supporting Document(s) COMPREHENSIVE METABOLIC PANEL [facility] COMPREHENSIVE METABOLIC PANEL Sodium [Moles/volume] in Serum or Plasma 139 mEq/L 134 - 153 [facility] Potassium [Moles/volume] in Serum or Plasma 3.5 mEq/L 3.6 - 5.0 L [facility] Chloride [Moles/volume] in Serum or Plasma 104 mEq/L 98 - 107 [facility] Carbon dioxide, total [Moles/volume] in Serum or Plasma 24 MEQ/L 22 - 30 [facility] Glucose [Mass/volume] in Serum or Plasma 89 MG/DL 65 - 110 [facility] BUN 16 MG/DL 7 - 21 [facility] Creatinine [Mass/volume] in Serum or Plasma 0.8 MG/DL 0.7 - 1.5 [facility] BUN/CREAT 20 8 - 27 [facility] al Protein [Mass/volume] in Serum or Plasma 6.3 G/DL 6.3 - 8.2 [facility] Albumin [Mass/volume] in Serum or Plasma 3.5 G/DL 3.9 - 5.0 L [facility] Globulin [Mass/volume] in Serum by calculation 2.8 GM/DL 2.4 - 3.2 [facility] A/G RATIO 1.3 0.8 - 2.0 [facility] Calcium [Mass/volume] in Serum or Plasma 8.0 MG/DL 8.4 - 10.2 L [facility] Bilirubin.total [Mass/volume] in Serum or Plasma <0.7 MG/DL 0.2 - 1.3 [facility] Alkaline phosphatase [Enzymatic activity/volume] in Serum or Plasma 92 U/L 38 - 126 [facility] Aspartate aminotransferase [Enzymatic activity/volume] in Serum or Plasma 26 U/L 5 - 40 [facility] Alanine aminotransferase [Enzymatic activity/volume] in Seru m or Plasma 15 U/L 7 - 56 [facility] Anion gap 3 in Serum or Plasma 11.0 mmol/L 8.0 - 16.0 [facility] AGE 58 yrs [facility] NON-AA GFR >60 mL/min [facility] ital AFR AMER GFR >60 mL/min [facility] Male GFR In terprentation 20-49 [...] >32 mL/min Normal ID Date Data Source [id number] 10/10/2019 07:16:00 AM EDT [facility] Name Value Range Interpretation Code Description Data Trini rce(s) Supporting Document(s) TROPONIN T <0.01 NG/ML 0.00 - 0.10 [facility] ospital TROPONIN T0.1 ng/ml Recommended as the c linical threshold value forTroponin T. ID Date Data Source [id number] 10/10/2019 01:14:00 AM EDT [address] [address] ---------NAME--------- NUMBER SEX AGE ADMIT DISC. XRAY# F/C TYPE RIPPLE NKECHI [id number] M 58 10/09/19 [id number] MB4 O/P DATE OF : 1960 M/R# [id number] #: [id number] LOCATION: EMERGENCY DEPT TRANSCRIBED: 10/10/19 1:[address] CTA CHEST NON-CORONARY W [id number] COMPLETED:10/10/19 1:15 yaritza [id number] {REASON FOR EXAM: eLEVATED d-DIMER PHYSICIAN: ISAEL HERNÁNDEZ== R A D I O L O G Y R E P O R T =====PATIENT HISTORY:Elevated D-Dimer. Accumulated DLP-522.2 mGy, Estimated DLP- 502.6 mGy*cm. [id number],75mL, [id number], 01/07. BUN-24, Createnine-1.2, GFR >60. Male.Time Out performed. Correct patient with 2 identifiers, type and amount ofcontrast used, correct body part and side all verified prior to examination. - RLB / LUNG (DICOM Hx)EXAM: CTA Chest with Intravenous Contrast for PE evaluationCLINICAL HISTORY: Elevated D-Dimer. Accumulated DLP-522.2 mGy, EstimatedDLP-502.6 mGy*cm. [id number], 75mL, [id number], 01/07. BUN-24, Createnine-1.2, GFR >60.Male. Time Out performed. Correct patient with 2 identifiers, type and amountof contrast used, correct body part and side all verified prior to examination.- RLBTECHNIQUE: Axial CTA images of the chest with intravenous contrast using apulmonary embolism protocol. Multiplanar reconstructed images were created andreviewed.CONTRAST: With; [id number], 75mL. was administered without incident.COMPARISON: None provided.FINDINGS:PULMONARY [...] rce(s) Supporting Document(s) ID Date Data Source [id number] 10/13/2019 03:08:00 PM EDT [facility] Name Value Range Interpretation Code Description Data Trini rce(s) Supporting Document(s) CULTURE URINE [facility] spital _CULTURE URINE_$$[id number]$$516532$$574455$$786276$$406546$$916794$$515928$$398465$$353149$$ 715586$$532518$$785827$$978897$$906205$$426944$$887616$$430121$$767554$$821080$$ 508590$$614335$$328794$$620567$$337563$$029551$$714692$$455653 -- Continued on next page --Patient: [facility] Order: [id number] Page 2Culture: CULTURE URINE Status: Final ==== -- Continued on next page --Patient: [facility] Order: [id number] Page 2Culture: CULTURE URINE Status: Prelim =====$$[id number]$$[id number] DATE/TIME: 10/13/2019 10:06Culture: CULTURE URINE Status: FinalIsolate [...] 10/12/2019 03:27 ET Gram negative rodsUrine Culture,Comprehensive: K2Kfdfrjzdnrx coli Flag: APatient: ANAI ARBOLEDA Order: [id number] Page 3Culture: CULTURE URINE Status: Final ISOLATE [...] S S . . . . . .18449-1Ynmcrdmayx S S . . . . . .267-5Imipenem S S . . . . . .279-0Levofloxacin S S . . . . . .35085-4Qforzgjtt S S . . . . . .6652- 2Nitrofurantoin S S . . . . . .363-2Piperacillin/Tazobactam S S . . . . . .412-7Tetracycline S S . . . . . .496-0Tobramycin S S . . . . . .508-2Trimethoprim/Sulfa S S . . . . . .516-5P1 Test performed by: [facility] #: [id number] [address] [id number] [facility] [id number] Director : Emeterio Gregory MD NPI #:Slab Puller : 10/12/[email or web address].SENT REF 10/13/19.1508.XMT.SENT REF ID Date Data Source [id number] 10/09/2019 10:37:00 PM EDT [facility] Name Value Range Interpretation Code Description Data Trini rce(s) Supporting Document(s) [facility] COL[facility] yellow NORMAL: Yellow [facility] CLARITY cloudy NORMAL: Clear [facility] Specific gravity of Urine by Test strip 1.010 1.001 - 1.030 [facility] pH 7 5 - 9 [facility] Glucose [Mass/volume] in Urine by Test strip NORM NORMAL: Negat [facility] Bilirubin.total [Presence] in Urine by Test strip NEG NORMAL: Negative [facility] [facility] Ket[facility] [Presence] in Urine by Test strip NEG NORMAL: Negative [facility] Protein [Mass/volume] in Urine by Test strip NEG NORMAL: Negat [facility] Nitrite [Presence] in Urine by Test strip POS NORMAL: Negative [facility] BLOOD 10 NORMAL: Negative [facility] Leukocyte esterase [Presence] in Urine by Test strip 500 JIMMY L: Negative [facility] Urobilinogen [Mass/volume] in Urine by Test strip NOR less arthur n 1.0 mg/dL [facility] MICROSCOPIC See Below [facility] ital WBC 7 - 10 NORMAL: NONE SEEN A [facility] Erythrocytes [#/volume] in Urine by Test strip 3 - 5 NORMAL: NON E SEEN [facility] EPITHELIAL MODERATE NORMAL: NONE SEEN A [facility] Bacteria [Presence] in Urine sediment by Light microscopy 2+ MOD NORMAL: NONE SEEN A [facility] ID Date Data Source [id number] 10/09/2019 09:50:00 PM EDT [facility] [address] [facility] [place] [address] ---------NAME--------- NUMBER SEX AGE ADMIT DISC. XRAY# F/C TYPE RIPPLE NKECHI [id number] M 58 10/09/19 [id number] MB4 E/R DATE OF : 1960 M/R# [id number] PH#: [phone] TR-1B LOCATION: EMERGENCY DEPT TRANSCRIBED: 10/09/19 21:[address] ABD //T// PELV W/O ORAL W/[place] [id number] COMPLETED:10/09/19 21:51 yaritza [id number] Reason(s): Abdominal Pain Vomiting PHYSICIAN: LEESA BR [...] rce(s) Supporting Document(s) ID Date Data Source [id number] 10/09/2019 09:40:00 PM EDT [facility] [address] [place] [address] ---------NAME--------- NUMBER SEX AGE ADMIT DISC. XRAY# F/C TYPE RIPPLE NKECHI [id number] M 58 10/09/19 [id number] MB4 E/R DATE OF : 1960 M/R# [id number] #: [id number] TR-1B LOCATION: EMERGENCY DEPT TRANSCRIBED: 10/09/19 21:[address] THORAX W/O CONTRAST [id number] COMPLETED:10/09/19 21:41 yaritza [id number] Reason(s): Cough Fever PHYSICIAN: LEESA BR R [...] rce(s) Supporting Document(s) ID Date Data Source [id number] 10/09/2019 09:12:00 PM EDT [facility] [address] [place] [address] ---------NAME--------- NUMBER SEX AGE ADMIT DISC. XRAY# F/C TYPE RIPPLE NKECHI [id number] M 58 10/09/19 [id number] [id number] E/R DATE OF : 1960 M/R# [id number] #: [id number] TR-1B LOCATION: EMERGENCY DEPT TRANSCRIBED: 10/09/19 21:[address] HEAD W/O CONTRAST [id number] COMPLETED:10/09/19 21:13 yaritza [id number] Reason(s): Head Injury Head Pain Headache PHYSICIAN: [...] rce(s) Supporting Document(s) ID Date Data Source [id number] 10/17/2019 10:31:00 AM EDT [facility] Name Value Range Interpretation Code Description Data Trini rce(s) Supporting Document(s) CULTURE BLOOD [facility] spital _CULTURE BLOOD_{ PRELIM TEST PERFORMED AT [place] [id number] [place] [address] CLIA# [id number] SEE SCANNED REPORT ID Date Data Source [id number] 10/12/2019 09:45:00 AM EDT [facility]OB[facility] [id number] [facility] BY PARMINDER. RESULT READBACK.The [...] rce(s) Supporting Document(s) ID Date Data Source [id number] 10/09/2019 09:11:00 PM EDT [facility] Name Value Range Interpretation Code Description Data Trini rce(s) Supporting Document(s) Lactic w Rfx (if elevated) 2.2 mmol/L 0.5-2.[address] [facility] Called to [facility] @ 2109 by Beatriz Houston. Results readback. ID Date Data Source [id number] 10/16/2019 12:24:[address] [facility] Name Value Range Interpretation Code Description Data Trini rce(s) Supporting Document(s) CULTURE BLOOD [facility] _CULTURE BLOOD_{ PRELIM GROWTH OF GRAM POSITIVE COCCI IN CLUSTERSGROWTH OF STAPH SPECIESREPORT TAKEN TO FLOOR 10/11/19 0800 CM TEST PERFORMED AT [address] [address] CLIA# [id number] SEE SCANNED REPORT ID Date Data Source [id number] 10/09/2019 10:04:00 PM EDT [facility] Name Value Range Interpretation Code Description Data Trini rce(s) Supporting Document(s) LACTIC ACID (LACTATE) [facility] RESULTS CALLED TO [place] [id number] CYNTHIA T PERFORMED AT [address] [address] CLIA# [id number] SEE SCANNED REPORT ID Date Data Source [id number] 10/09/2019 09:02:00 PM EDT [facility] Name Value Range Interpretation Code Description Data Trini rce(s) Supporting Document(s) Fibrin D-dimer FEU [Mass/volume] in Platelet poor plasma 0.85 ug /mL 0.27 - 0.50 H [facility] ID Date Data Source [id number] 10/09/2019 08:28:00 PM EDT [facility] Name Value Range Interpretation Code Description Data Trini rce(s) Supporting Document(s) CBC W/AUTOMATED DIFF [facility] COMPLETE BLOOD COUNT Leukocytes [#/volume] in Blood by Automated count 21.5 10^3/uL 4.2 - 11.0 H [facility] Erythrocytes [#/volume] in Blood by Automated count 4.55 10^6/uL 4. 50 - 6.30 [facility] Hemoglobin [Mass/volume] in Blood 13.1 g/dL 14.0 - 16.0 L [facility] Hematocrit [Volume Fraction] of Blood by Automated count 39.5 % 4 1.0 - 51.0 L [facility] Erythrocyte mean corpuscular volume [Entitic volume] by Auto mated count 86.8 fL 80.0 - 94.0 [facility] Erythrocyte mean corpuscular hemoglobin [Entitic mass] by Automated count 28.8 pg 27.0 - 34.0 [facility] Erythrocyte mean corpuscular hemoglobin concentration [Mass/volume] by Automated count 33.2 g/dL 31.0 - 36.0 [facility] Erythrocyte distribution width [Ratio] by Automated count 13.9 % 11.5 - 14.8 [facility] Platelets [#/volume] in Blood by Automated count 344 10^3/uL 150 - 45 0 [facility] Platelet mean volume [Entitic volume] in Blood by Automated count 10.8 fL 7.4 - 10.4 H [facility] Neutrophils/100 leukocytes in Blood by Automated count 79.4 % 37. 0 - 80.0 [facility] Lymphocytes/100 leukocytes in Blood by Manual count 10.1 % 25.0 - 40.0 L [facility] Monocytes/100 leukocytes in Blood by Automated count 9.7 % 3.0 - 8.0 H [facility] Eosinophils/100 leukocytes in Blood by Automated count 0.1 % 0.0 - 7.0 [facility] Basophils/100 leukocytes in Blood by Automated count 0.2 % 0.0 - 2.0 [facility] %IG 0.5 % 0.0 - 0.0 H [facility] al %NRBC 0.0 % 0.0 - 0.0 [facility] al Neutrophils [#/volume] in Blood by Automated count 17.11 10^3/uL 2. 00 - 6.90 H [facility] Lymphocytes [#/volume] in Blood by Automated count 2.17 10^3/uL 0.60 - 3.40 [facility] Monocytes [#/volume] in Blood by Automated count 2.09 10^3/uL 0.00 - 0.90 H [facility] Eosinophils [#/volume] in Blood by Automated count 0.02 10^3/uL 0.00 - 0.70 [facility] Basophils [#/volume] in Blood by Automated count 0.04 10^3/uL 0.00 - 0.20 [facility] #IG 0.10 10^3/uL 0.00 - 0.10 [facility] #NRBC 0.00 10^3/uL 0.00 - 0.00 [facility] MANUAL DIFF SEE BELOW [facility] ital Segmented neutrophils/100 leukocytes in Blood by Manual count 78 % 37 - 80 [facility] BAND 3 % 0 - 5 [facility] al %LYMPH 11 % 25 - 40 L [facility] al %MONO 8 % 3 - 8 [facility] RBC MORPH MORPH IS NORMAL [facility] ID Date Data Source [id number] 10/09/2019 08:24:00 PM EDT [facility] Name Value Range Interpretation Code Description Data Trini rce(s) Supporting Document(s) Lipase [Enzymatic activity/volume] in Serum or Plasma 11 U/L 13 - 60 L [facility] ID Date Data Source [id number] 10/09/2019 08:24:00 PM EDT [facility] Name Value Range Interpretation Code Description Data Trini rce(s) Supporting Document(s) Creatine kinase [Enzymatic activity/volume] in Serum or Plas ma 1470 U/L 30 - 170 H [facility] ID Date Data Source [id number] 10/09/2019 08:24:00 PM EDT [facility] Name Value Range Interpretation Code Description Data Trini rce(s) Supporting Document(s) COMPREHENSIVE METABOLIC PANEL [facility] COMPREHENSIVE METABOLIC PANEL Sodium [Moles/volume] in Serum or Plasma 139 mEq/L 134 - 153 [facility] Potassium [Moles/volume] in Serum or Plasma 4.6 mEq/L 3.6 - 5.0 [facility] Chloride [Moles/volume] in Serum or Plasma 97 mEq/L 98 - 107 L [facility] Carbon dioxide, total [Moles/volume] in Serum or Plasma 28 MEQ/L 22 - 30 [facility] Glucose [Mass/volume] in Serum or Plasma 122 MG/DL 65 - 110 H [facility] BUN 24 MG/DL 7 - 21 H [facility] Creatinine [Mass/volume] in Serum or Plasma 1.2 MG/DL 0.7 - 1.5 [facility] BUN/CREAT 20 8 - 27 [facility] Protein [Mass/volume] in Serum or Plasma 7.8 G/DL 6.3 - 8.2 [facility] Albumin [Mass/volume] in Serum or Plasma 4.3 G/DL 3.9 - 5.0 [facility] Globulin [Mass/volume] in Serum by calculation 3.5 GM/DL 2.4 - 3.2 H [facility] A/G RATIO 1.2 0.8 - 2.0 [facility] Calcium [Mass/volume] in Serum or Plasma 9.9 MG/DL 8.4 - 10.2 [facility] Bilirubin.total [Mass/volume] in Serum or Plasma <0.7 MG/DL 0.2 - 1.3 [facility] Alkaline phosphatase [Enzymatic activity/volume] in Serum or Plasma 120 U/L 38 - 126 [facility] Aspartate aminotransferase [Enzymatic activity/volume] in Serum or Plasma 26 U/L 5 - 40 [facility] Alanine aminotransferase [Enzymatic activity/volume] in Seru m or Plasma 18 U/L 7 - 56 [facility] Anion gap 3 in Serum or Plasma 14.0 mmol/L 8.0 - 16.0 [facility] AGE 58 yrs [facility] al NON-AA GFR >60 mL/min [facility] ital AFR AMER GFR >60 mL/min [facility] Male GFR In terprentation 20-49 [...] >32 mL/min Normal ID Date Data Source [id number] 10/09/2019 08:24:00 PM EDT [facility] Name Value Range Interpretation Code Description Data Trini rce(s) Supporting Document(s) TROPONIN T <0.01 NG/ML 0.00 - 0.10 [facility] ospital TROPONIN T0.1 ng/ml Recommended as the c linical threshold value forTroponin T. ID Date Data Source [id number] 10/09/2019 08:24:00 PM EDT [facility] Name Value Range Interpretation Code Description Data Trini rce(s) Supporting Document(s) BNP 135 PG/ML 0 - 125 H [facility] ID Date Data Source [id number] 09/28/2019 09:10:00 AM EDT [facility] ([facility] ) Name Value Range Interpretation Code Description Data Trini rce(s) Supporting Document(s) Phenytoin [Mass/volume] in Serum or Plasma 22.2 UG/ML 10.0-20.0 [facility] ([facility] ) <content>note:<nlbl:demographic_changed> </content>
<content></content> ID Date Data Source [id number] 09/08/2019 09:00:00 AM EDT [facility] ([facility] ) Name Value Range Interpretation Code Description Data Trini rce(s) Supporting Document(s) Aspartate aminotransferase [Enzymatic activity/volume] in Serum or Plasma 16 U/L 7-37 [facility] ([facility], ) <content>note:<nlbl:demographic_changed> </content>
<content></content> Phenobarbital [Mass/volume] in Serum or Plasma 29.1 UG/ML 15.0-40.0 [facility] ([facility] ) <content>note:<nlbl:demographic_changed> </content>
<content></content> Alanine aminotransferase [Enzymatic activity/volume] in Seru m or Plasma 25 U/L 12-78 [facility] ([facility] ) <content>note:<nlbl:demographic_changed> </content>
<content></content> Phenytoin [Mass/volume] in Serum or Plasma 8.8 UG/ML 10.0-20.0 [facility] ([facility] ) <content>note:<nlbl:demographic_changed> </content>
<content></content> Levetiracetam [Mass/volume] in Serum or Plasma 20.7 ug/mL 10.0-40.0 [facility] ([facility] ) This test was developed and its performa nce characteristics determined by [facility]. It has not been cleared or approved by the Food and Drug Administration. Performed at: [address] [id number] Puller: Seng Nichols MD, Phone: [phone] ID Date Data Source [id number] 09/08/2019 09:00:00 AM EDT [facility] ([facility]) Name Value Range Interpretation Code Description Data Trini rce(s) Supporting Document(s) White Blood Count 6.3 10 4.0-10.0 [facility] ([facility]) Red Blood Count 4.71 10 4.30-6.10 [facility] ([facility]) Hemoglobin 13.5 g/dL 13.5-17.5 [facility] ([facility]) Mean Corpuscular Hemoglobin 28.7 pg 27.0-33.0 [facility] ([facility]) Hematocrit 41.9 % 42.0-52.0 [facility] ([facility]) Mean Corpuscular Volume 89.0 fl 80.0-96.0 M EDENT ([facility]) Red Cell Distribution Width 14.2 % 11.5-14.5 [facility] ([facility]) Mean Corpuscular HGB Conc 32.2 g/dL 32.0-36.5 [facility] ([facility]) Neutrophils % 55.6 % 36.0-66.0 [facility] ([facility]) Platelet Count, Automated 221 10 150-450 [facility] ([facility]) Lymph % 28.6 % 24.0-44.0 [facility] ([facility]) Routt % 13.0 % 0.0-5.0 [facility] ([facility]) Baso % 0.3 % 0.0-1.0 [facility] ([facility]) Eos % 2.2 % 0.0-3.0 [facility] ([facility]) Nucleated Red Blood Cell % 0.0 % 0-0 MED ENT ([facility]) Immature Granulocyte % 0.3 % 0-3.0 [facility] ([facility]) Neutrophils # 3.5 10 1.5-8.5 [facility] ([facility]) Lymph # 1.8 10 1.5-5.0 [facility] ([facility]) Routt # 0.8 10 0.0-0.8 [facility] ([facility]) Eos # 0.1 10 0.0-0.5 [facility] ([facility]) Baso # 0.0 10 0.0-0.2 [facility] ([facility]) ID Date Data Source UA URINALYSIS 08/15/2019 05:58:00 AM EDT eCW1 ([facility]) Name Value Range Interpretation Code Description Data Trini rce(s) Supporting Document(s) UA URINALYSIS eCW1 ([facility]) ID Date Data Source URINE CULTURE 08/15/2019 05:57:27 AM EDT eCW1 ([facility]) Name Value Range Interpretation Code Description Data Trini rce(s) Supporting Document(s) URINE CULTURE eCW1 ([facility]) ID Date Data Source Chest X-ray PA and lateral 08/12/2019 04:34:35 AM EDT eCW1 ( [facility]) Name Value Range Interpretation Code Description Data Trini rce(s) Supporting Document(s) Chest X-ray PA and lateral eCW 1 ([facility]) ID Date Data Source LIPASE 08/10/2019 05:17:33 AM EDT eCW1 ([facility]) Name Value Range Interpretation Code Description Data Trini rce(s) Supporting Document(s) 57 LIPASE eCW1 ([facility]) ID Date Data Source LACTIC ACID LEVEL, LACTATE 08/10/2019 05:17:07 AM EDT eCW1 ( [facility]) Name Value Range Interpretation Code Description Data Trini rce(s) Supporting Document(s) LACTIC ACID LEVEL, LACTATE eCW 1 ([facility]) ID Date Data Source [id number] 08/09/2019 07:50:00 AM EDT [facility] ([facility]) Name Value Range Interpretation Code Description Data Trini rce(s) Supporting Document(s) Phenytoin [Mass/volume] in Serum or Plasma 8.2 UG/ML 10.0-20.0 [facility] ([facility]) <content>note:<nlbl:demographic_changed> </content>
<content></content> ID Date Data Source Coronavirus 2019 Nasopharygeal (Send Out) COVID 07/01/2019 1 2:00:00 AM EDT eCW1 ([facility]) Name Value Range Interpretation Code Description Data Trini rce(s) Supporting Document(s) Testing was performed using the slava(R) SARS-CoV-[address] CORONAVIRUS 2019 NASOPHARYGEAL eCW1 ([facility]) ID Date Data Source PROCALCITONIN 07/01/2019 12:00:00 AM EDT eCW1 ([facility]) Name Value Range Interpretation Code Description Data Trini rce(s) Supporting Document(s) 0.97 PROCALCITONIN [facility] ([facility]) ID Date Data Source RESPIRATORY PANEL 07/01/2019 12:00:00 AM EDT eCW1 ([facility]) Name Value Range Interpretation Code Description Data Trini rce(s) Supporting Document(s) This respiratory PCR panel detects Influenza A H1, H3 and RESPIRATORY PANEL eCW1 ([facility]) ID Date Data Source Rapid Flu (Mary Jane Influenza A+B HERNANDEZ) 07/01/2019 12:00:00 AM E DT eCW1 ([facility]) Name Value Range Interpretation Code Description Data Trini rce(s) Supporting Document(s) Pos Result B (Positive/Negative) e CW1 ([facility]) Neg Result A (Positive/Negative) e CW1 ([facility]) Yes Internal Controls Perform ed (Y/N) eCW1 ([facility]) ID Date Data Source [id number] 03/15/2019 09:25:00 AM EST [facility] ([facility]) Name Value Range Interpretation Code Description Data Trini rce(s) Supporting Document(s) Phenytoin [Mass/volume] in Serum or Plasma 8.7 UG/ML 10.0-20.0 [facility] ([facility]) <content>note:<nlbl:demographic_changed> </content>
<content></content> Phenobarbital [Mass/volume] in Serum or Plasma 29.0 UG/ML 15.0-40.0 [facility] ([facility]) <content>note:<nlbl:demographic_changed> </content>
<content></content> Levetiracetam [Mass/volume] in Serum or Plasma 12.4 ug/mL 10.0-40.0 [facility] ([facility] ) This test was developed and its performa nce characteristics determined by [facility]. It has not been cleared or approved by the Food and Drug Administration. Performed at: [facility] [id number] Puller: Seng Nichols MD, Phone: [phone] ID Date Data Source PTH INTACT 03/15/2019 12:00:00 AM EST eCW1 ([facility]) Name Value Range Interpretation Code Description Data Trini rce(s) Supporting Document(s) 23.1 18.5-88.0 PTH INTACT eCW1 ([facility]) ID Date Data Source VITAMIN D 25-HYDROXY 03/15/2019 12:00:00 AM EST eCW1 ([facility]) Name Value Range Interpretation Code Description Data Trini rce(s) Supporting Document(s) 81.9 30.0-100.0 TOTAL 25(OH) VITAMIN D eC W1 ([facility]) Procedure Social History Code Duration Value Status Description Data Source(s ) Smoking 01/20/2020 12:00:00 AM EST Never Smoker completed Never S moker eCW1 ([facility]) Smoking 01/20/2020 12:00:00 AM EST Never Smoker completed Never S moker eCW1 ([facility]) Smoking 01/20/2020 12:00:00 AM EST Never Smoker completed Never S moker eCW1 ([facility]) Smoking 01/20/2020 12:00:00 AM EST Never Smoker completed Never S moker eCW1 ([facility]) Smoking 01/20/2020 12:00:00 AM EST Never Smoker completed Never S moker eCW1 ([facility]) Smoking 01/20/2020 12:00:00 AM EST Never Smoker completed Never S moker eCW1 ([facility]) Smoking 01/20/2020 12:00:00 AM EST Never Smoker completed Never S moker eCW1 ([facility]) Smoking 01/20/2020 12:00:00 AM EST Never Smoker completed Never S moker eCW1 ([facility]) Smoking 01/03/2020 12:00:00 AM EST Never Smoker completed Never S moker eCW1 ([facility]) Smoking 01/03/2020 12:00:00 AM EST Never Smoker completed Never S moker eCW1 ([facility]) Smoking 12/01/2019 12:00:00 AM EDT Never Smoker completed Never S moker eCW1 ([facility]) Smoking 12/01/2019 12:00:00 AM EDT Never Smoker completed Never S moker eCW1 ([facility]) Smoking 12/01/2019 12:00:00 AM EDT Never Smoker completed Never S moker eCW1 ([facility]) Smoking 12/01/2019 12:00:00 AM EDT Never Smoker completed Never S moker eCW1 ([facility]) Smoking 12/01/2019 12:00:00 AM EDT Never Smoker completed Never S moker eCW1 ([facility]) Smoking 12/01/2019 12:00:00 AM EDT Never Smoker completed Never S moker eCW1 ([facility]) Smoking 12/01/2019 12:00:00 AM EDT Never Smoker completed Never S moker eCW1 ([facility]) Smoking 12/01/2019 12:00:00 AM EDT Never Smoker completed Never S moker eCW1 ([facility]) Smoking 12/01/2019 12:00:00 AM EDT Never Smoker completed Never S moker eCW1 ([facility]) Smoking 12/01/2019 12:00:00 AM EDT Never Smoker completed Never S moker eCW1 ([facility]) Smoking 12/01/2019 12:00:00 AM EDT Never Smoker completed Never S moker eCW1 ([facility]) Smoking 12/01/2019 12:00:00 AM EDT Never Smoker completed Never S moker eCW1 ([facility]) Smoking 08/10/2019 12:00:00 AM EDT Never Smoker completed Never S moker eCW1 ([facility]) Smoking 08/10/2019 12:00:00 AM EDT Never Smoker completed Never S moker eCW1 ([facility]) Smoking 08/10/2019 12:00:00 AM EDT Never Smoker completed Never S moker eCW1 ([facility]) Smoking 08/10/2019 12:00:00 AM EDT Never Smoker completed Never S moker eCW1 ([facility]) Smoking 08/10/2019 12:00:00 AM EDT Never Smoker completed Never S moker eCW1 ([facility]) Smoking 08/10/2019 12:00:00 AM EDT Never Smoker completed Never S moker eCW1 ([facility]) Smoking 08/10/2019 12:00:00 AM EDT Never Smoker completed Never S moker eCW1 ([facility]) Smoking 07/26/2019 12:00:00 AM EDT Never Smoker completed Never S moker eCW1 ([facility]) Smoking 07/26/2019 12:00:00 AM EDT Never Smoker completed Never S moker eCW1 ([facility]) Smoking 07/26/2019 12:00:00 AM EDT Never Smoker completed Never S moker eCW1 ([facility]) Smoking 07/26/2019 12:00:00 AM EDT Never Smoker completed Never S moker eCW1 ([facility]) Smoking 07/26/2019 12:00:00 AM EDT Never Smoker completed Never S moker eCW1 ([facility]) Smoking 07/26/2019 12:00:00 AM EDT Never Smoker completed Never S moker eCW1 ([facility]) Smoking 07/26/2019 12:00:00 AM EDT Never Smoker completed Never S moker eCW1 ([facility]) Vital Signs ID Date Data Source UNK Name Value Range Interpretation Code Description Data Source(s) Diastolic blood pressure 75 mm[Hg] 75 mm[Hg] eCW1 ([facility]) Systolic blood pressure 123 mm[Hg] 123 mm[Hg] e CW1 ([facility]) Respiratory rate 18 /min 18 /min eCW1 ([facility]) Heart rate 82 /min 82 /min eCW1 ([facility]) Body mass index (BMI) [Ratio] 25.05 kg/m2 25.05 kg/m2 eCW1 ([facility]) Body height 62 [in_i] 62 [in_i] eCW1 ([facility]) Body weight 137 [lb_av] 137 [lb_av] eCW1 ([facility]) Diastolic blood pressure 78 mm[Hg] 78 mm[Hg] eCW1 ([facility]) Systolic blood pressure 128 mm[Hg] 128 mm[Hg] e CW1 ([facility]) Body temperature 97.2 [degF] 97.2 [degF] eCW1 ( [facility]) Respiratory rate 18 /min 18 /min eCW1 ([facility]) Heart rate 93 /min 93 /min eCW1 ([facility]) Body mass index (BMI) [Ratio] 25.49 kg/m2 25.49 kg/m2 eCW1 ([facility]) Body height 62 [in_i] 62 [in_i] eCW1 ([facility]) Body weight 139.4 [lb_av] 139.4 [lb_av] eCW1 ([facility] [facility] Body mass index (BMI) [Ratio] 30.2 kg/m2 30.2 k g/m2 MEDENT ([facility] Body weight 144.38 [lb_av] 144.38 [lb_av] MEDEN T ([facility] Body height 58 [in_i] 58 [in_i] MEDENT ([facility] 4'10" Diastolic blood pressure 74 mm[Hg] 74 mm[Hg] eCW1 ([facility]) Systolic blood pressure 114 mm[Hg] 114 mm[Hg] e CW1 ([facility]) Body temperature 98.9 [degF] 98.9 [degF] eCW1 ( [facility]) Respiratory rate 18 /min 18 /min eCW1 ([facility]) Heart rate 90 /min 90 /min eCW1 ([facility]) Body mass index (BMI) [Ratio] 25.05 kg/m2 25.05 kg/m2 eCW1 ([facility]) Body height 62 [in_i] 62 [in_i] eCW1 ([facility]) Body weight 137 [lb_av] 137 [lb_av] eCW1 ([facility]) Body temperature 98.3 [degF] 98.3 [degF] eCW1 ( [facility]) Respiratory rate 18 /min 18 /min eCW1 ([facility]) Heart rate 88 /min 88 /min eCW1 ([facility]) Body mass index (BMI) [Ratio] 25.05 kg/m2 25.05 kg/m2 eCW1 ([facility]) Body height 62 [in_i] 62 [in_i] eCW1 ([facility]) Body weight 137 [lb_av] 137 [lb_av] eCW1 ([facility]) Body temperature 98.3 [degF] 98.3 [degF] eCW1 ( [facility]) Respiratory rate 18 /min 18 /min eCW1 ([facility]) Heart rate 88 /min 88 /min eCW1 ([facility]) Body mass index (BMI) [Ratio] 25.05 kg/m2 25.05 kg/m2 eCW1 ([facility]) Body height 62 [in_i] 62 [in_i] eCW1 ([facility]) Body weight 137 [lb_av] 137 [lb_av] eCW1 ([facility]) Body temperature 100.6 [degF] 100.6 [degF] eCW1 ([facility]) Respiratory rate 22 /min 22 /min eCW1 ([facility]) Body mass index (BMI) [Ratio] 25.91 kg/m2 25.91 kg/m2 eCW1 ([facility]) Body height 62 [in_us] 62 [in_us] eCW1 ([facility]) Body weight Measured 141.7 [lb_av] 141.7 [lb_av ] eCW1 ([facility]) Body weight 141.00 [lb_av] 141.00 [lb_av] MEDEN T ([facility], [facility]) Body temperature 95.9 [degF] 95.9 [degF] MEDENT ([facility], [facility]) Oxygen saturation in Arterial blood by Pulse oximetry 98 % 98 % MEDENT ([facility], [facility]) Respiratory rate 16 /min 16 /min MEDENT ( [facility], [facility]) Heart rate 83 /min 83 /min MEDENT ([facility], [facility]) Diastolic blood pressure 80 mm[Hg] 80 mm[Hg] eCW1 ([facility]) Systolic blood pressure 124 mm[Hg] 124 mm[Hg] e CW1 ([facility]) Body temperature 99.7 [degF] 99.7 [degF] eCW1 ( [facility]) Respiratory rate 18 /min 18 /min eCW1 ([facility]) Heart rate 104 /min 104 /min eCW1 ([facility]) Body mass index (BMI) [Ratio] 25.05 kg/m2 25.05 kg/m2 eCW1 ([facility]) Body height 62 [in_us] 62 [in_us] eCW1 ([facility]) Body weight Measured 137 [lb_av] 137 [lb_av] eC W1 ([facility]) Respiratory rate 16 /min 16 /min MEDENT ( [facility]) Heart rate 72 /min 72 /min MEDENT ([facility]) Diastolic blood pressure 70 mm[Hg] 70 mm[Hg] MEDENT ([facility]) Systolic blood pressure 122 mm[Hg] 122 mm[Hg] M EDENT ([facility]) Diastolic blood pressure 76 mm[Hg] 76 mm[Hg] eCW1 ([facility]) Systolic blood pressure 118 mm[Hg] 118 mm[Hg] e CW1 ([facility]) Body temperature 96.8 [degF] 96.8 [degF] eCW1 ( [facility]) Respiratory rate 18 /min 18 /min eCW1 ([facility]) Heart rate 97 /min 97 /min eCW1 ([facility]) Body mass index (BMI) [Ratio] 25.05 kg/m2 25.05 kg/m2 eCW1 ([facility]) Body height 62 [in_us] 62 [in_us] eCW1 ([facility]) Body weight Measured 137 [lb_av] 137 [lb_av] eC W1 ([facility]) Diastolic blood pressure 72 mm[Hg] 72 mm[Hg] eCW1 ([facility]) Systolic blood pressure 118 mm[Hg] 118 mm[Hg] e CW1 ([facility]) Body temperature 98.2 [degF] 98.2 [degF] eCW1 ( [facility]) Respiratory rate 20 /min 20 /min eCW1 ([facility]) Heart rate 93 /min 93 /min eCW1 ([facility]) Body mass index (BMI) [Ratio] 25.53 kg/m2 25.53 kg/m2 eCW1 ([facility]) Body height 62 [in_us] 62 [in_us] eCW1 ([facility]) Body weight Measured 139.6 [lb_av] 139.6 [lb_av ] eCW1 ([facility]) ID Date Data Source [id number] 10/27/2019 08:43:21 AM EDT [facility] Name Value Range Interpretation Code Description Data Source(s) WEIGHT RECORDED 146.60 pounds 146.60 pounds [facility] WEIGHT RECORDED 146.70 pounds 146.70 pounds [facility] Patient Treatment Plan of Care Planned Activity Planned Date Details Description Data Source (s) [facility]ast 10 MG Oral Tablet 12/16/2019 12:00:00 AM EDT eCW1 ([facility]) montelukast 10 MG Oral Tablet 12/16/2019 12:00:00 AM EDT eCW1 ([facility]) montelukast 10 MG Oral Tablet 12/16/2019 12:00:00 AM EDT eCW1 ([facility]) montelukast 10 MG Oral Tablet 12/16/2019 12:00:00 AM EDT eCW1 ([facility]) montelukast 10 MG Oral Tablet 12/16/2019 12:00:00 AM EDT eCW1 ([facility]) montelukast 10 MG Oral Tablet 12/16/2019 12:00:00 AM EDT eCW1 ([facility]) montelukast 10 MG Oral Tablet 12/16/2019 12:00:00 AM EDT eCW1 ([facility]) montelukast 10 MG Oral Tablet 12/16/2019 12:00:00 AM EDT eCW1 ([facility]) montelukast 10 MG Oral Tablet 12/16/2019 12:00:00 AM EDT eCW1 ([facility]) zoledronic acid 0.05 MG/ML Injectable Solution [Reclas t] 12/06/2019 12:00:00 AM EDT eCW1 ([facility]) zoledronic acid 0.05 MG/ML Injectable Solution [Reclas t] 12/06/2019 12:00:00 AM EDT eCW1 ([facility]) zoledronic acid 0.05 MG/ML Injectable Solution [Reclas t] 12/06/2019 12:00:00 AM EDT eCW1 ([facility]) zoledronic acid 0.05 MG/ML Injectable Solution [Reclas t] 12/06/2019 12:00:00 AM EDT eCW1 ([facility]) zoledronic acid 0.05 MG/ML Injectable Solution [Reclas t] 12/06/2019 12:00:00 AM EDT eCW1 ([facility]) zoledronic acid 0.05 MG/ML Injectable Solution [Reclas t] 12/06/2019 12:00:00 AM EDT eCW1 ([facility]) zoledronic acid 0.05 MG/ML Injectable Solution [Reclas t] 12/06/2019 12:00:00 AM EDT eCW1 ([facility]) zoledronic acid 0.05 MG/ML Injectable Solution [Reclas t] 12/06/2019 12:00:00 AM EDT eCW1 ([facility]) zoledronic acid 0.05 MG/ML Injectable Solution [Reclas t] 12/06/2019 12:00:00 AM EDT eCW1 ([facility]) zoledronic acid 0.05 MG/ML Injectable Solution [Reclas t] 12/06/2019 12:00:00 AM EDT eCW1 ([facility]) zoledronic acid 0.05 MG/ML Injectable Solution [Reclas t] 12/06/2019 12:00:00 AM EDT eCW1 ([facility]) zoledronic acid 0.05 MG/ML Injectable Solution [Reclas t] 12/06/2019 12:00:00 AM EDT eCW1 ([facility]) zoledronic acid 0.05 MG/ML Injectable Solution [Reclas t] 12/06/2019 12:00:00 AM EDT eCW1 ([facility]) zoledronic acid 0.05 MG/ML Injectable Solution [Reclas t] 12/06/2019 12:00:00 AM EDT eCW1 ([facility]) Flonase Allergy Relief 50 MCG/ACT 12/02/2019 12:00:00 AM EDT eCW1 ([facility]) Flonase Allergy Relief 50 MCG/ACT 12/02/2019 12:00:00 AM EDT eCW1 ([facility]) Flonase Allergy Relief 50 MCG/ACT 12/02/2019 12:00:00 AM EDT eCW1 ([facility]) Flonase Allergy Relief 50 MCG/ACT 12/02/2019 12:00:00 AM EDT eCW1 ([facility]) Flonase Allergy Relief 50 MCG/ACT 12/02/2019 12:00:00 AM EDT eCW1 ([facility]) Flonase Allergy Relief 50 MCG/ACT 12/02/2019 12:00:00 AM EDT eCW1 ([facility]) Flonase Allergy Relief 50 MCG/ACT 12/02/2019 12:00:00 AM EDT eCW1 ([facility]) Flonase Allergy Relief 50 MCG/ACT 12/02/2019 12:00:00 AM EDT eCW1 ([facility]) Flonase Allergy Relief 50 MCG/ACT 12/02/2019 12:00:00 AM EDT eCW1 ([facility]) Flonase Allergy Relief 50 MCG/ACT 12/02/2019 12:00:00 AM EDT eCW1 ([facility]) Flonase Allergy Relief 50 MCG/ACT 12/02/2019 12:00:00 AM EDT eCW1 ([facility]) Flonase Allergy Relief 50 MCG/ACT 12/02/2019 12:00:00 AM EDT eCW1 ([facility]) Flonase Allergy Relief 50 MCG/ACT 12/02/2019 12:00:00 AM EDT eCW1 ([facility]) Flonase Allergy Relief 50 MCG/ACT 12/02/2019 12:00:00 AM EDT eCW1 ([facility]) Flonase Allergy Relief 50 MCG/ACT 12/02/2019 12:00:00 AM EDT eCW1 ([facility]) Flonase Allergy Relief 50 MCG/ACT 12/02/2019 12:00:00 AM EDT eCW1 ([facility]) Flonase Allergy Relief 50 MCG/ACT 12/02/2019 12:00:00 AM EDT eCW1 ([facility]) Flonase Allergy Relief 50 MCG/ACT 12/02/2019 12:00:00 AM EDT eCW1 ([facility]) Flonase Allergy Relief 50 MCG/ACT 12/02/2019 12:00:00 AM EDT eCW1 ([facility]) Flonase Allergy Relief 50 MCG/ACT 12/02/2019 12:00:00 AM EDT eCW1 ([facility]) Flonase Allergy Relief 50 MCG/ACT 12/02/2019 12:00:00 AM EDT eCW1 ([facility]) Flonase Allergy Relief 50 MCG/ACT 12/02/2019 12:00:00 AM EDT eCW1 ([facility]) InCare Straight 14FR/20CM 1 11/25/2019 12:00:00 AM EDT eCW1 ([facility]) Sodium Phosphate, Dibasic 59.3 MG/ML / S odium Phosphate, Monobasic 161 MG/ML Enema 11/25/2019 12:00:00 AM EDT eCW1 ([facility]) Bisacodyl 10 MG Rectal Suppository 11/25/2019 12:00:00 AM EDT eCW1 ([facility]) May Have - 11/25/2019 12:00:00 AM EDT e CW1 ([facility]) InCare Straight 14FR/20CM 1 11/25/2019 12:00:00 AM EDT eCW1 ([facility]) Sodium Phosphate, Dibasic 59.3 MG/ML / S odium Phosphate, Monobasic 161 MG/ML Enema 11/25/2019 12:00:00 AM EDT eCW1 ([facility]) Bisacodyl 10 MG Rectal Suppository 11/25/2019 12:00:00 AM EDT eCW1 ([facility]) May Have - 11/25/2019 12:00:00 AM EDT e CW1 ([facility]) InCare Straight 14FR/20CM 1 11/25/2019 12:00:00 AM EDT eCW1 ([facility]) Sodium Phosphate, Dibasic 59.3 MG/ML / S odium Phosphate, Monobasic 161 MG/ML Enema 11/25/2019 12:00:00 AM EDT eCW1 ([facility]) Bisacodyl 10 MG Rectal Suppository 11/25/2019 12:00:00 AM EDT eCW1 ([facility]) May Have - 11/25/2019 12:00:00 AM EDT e CW1 ([facility]) InCare Straight 14FR/20CM 1 11/25/2019 12:00:00 AM EDT eCW1 ([facility]) Sodium Phosphate, Dibasic 59.3 MG/ML / S odium Phosphate, Monobasic 161 MG/ML Enema 11/25/2019 12:00:00 AM EDT eCW1 ([facility]) Bisacodyl 10 MG Rectal Suppository 11/25/2019 12:00:00 AM EDT eCW1 ([facility]) June Have - 11/25/2019 12:00:00 AM EDT e CW1 ([facility]) NITROFURANTOIN, MACROCRYSTALS 25 MG / Ni trofurantoin, Monohydrate 75 MG Oral Capsule 08/15/2019 12:00:00 AM EDT eCW1 ([facility]) NITROFURANTOIN, MACROCRYSTALS 25 MG / Ni trofurantoin, Monohydrate 75 MG Oral Capsule 08/15/2019 12:00:00 AM EDT eCW1 ([facility]) NITROFURANTOIN, MACROCRYSTALS 25 MG / Ni trofurantoin, Monohydrate 75 MG Oral Capsule 08/15/2019 12:00:00 AM EDT eCW1 ([facility]) NITROFURANTOIN, MACROCRYSTALS 25 MG / Ni trofurantoin, Monohydrate 75 MG Oral Capsule 08/15/2019 12:00:00 AM EDT eCW1 ([facility]) NITROFURANTOIN, MACROCRYSTALS 25 MG / Ni trofurantoin, Monohydrate 75 MG Oral Capsule 08/15/2019 12:00:00 AM EDT eCW1 ([facility]) NITROFURANTOIN, MACROCRYSTALS 25 MG / Ni trofurantoin, Monohydrate 75 MG Oral Capsule 08/15/2019 12:00:00 AM EDT eCW1 ([facility]) NITROFURANTOIN, MACROCRYSTALS 25 MG / Ni trofurantoin, Monohydrate 75 MG Oral Capsule 08/15/2019 12:00:00 AM EDT eCW1 ([facility]) Chlorthalidone 25 MG Oral Tablet 07/26/2019 12:00:00 AM EDT eCW1 ([facility]) Chlorthalidone 25 MG Oral Tablet 07/26/2019 12:00:00 AM EDT eCW1 ([facility]) Chlorthalidone 25 MG Oral Tablet 07/26/2019 12:00:00 AM EDT eCW1 ([facility]) Chlorthalidone 25 MG Oral Tablet 07/26/2019 12:00:00 AM EDT eCW1 ([facility]) Chlorthalidone 25 MG Oral Tablet 07/26/2019 12:00:00 AM EDT eCW1 ([facility]) Chlorthalidone 25 MG Oral Tablet 07/26/2019 12:00:00 AM EDT eCW1 ([facility]) Chlorthalidone 25 MG Oral Tablet 07/26/2019 12:00:00 AM EDT eCW1 ([facility]) May Have - 07/14/2019 12:00:00 AM EDT e CW1 ([facility]) Oseltamivir 75 MG Oral Capsule 07/01/2019 12:00:00 AM EDT eCW1 ([facility]) Wheelchair _ 03/18/2019 12:00:00 AM EST e CW1 ([facility]) Cephalexin 500 MG Oral Capsule [Keflex] 01/11/2019 12:00:00 AM EST eCW1 ([facility]) Triamcinolone Acetonide 1 MG/ML Topical Cream eCW1 ([facility]) Triamcinolone Acetonide 1 MG/ML Topical Cream eCW1 ([facility])
[2020-03-05 22:54] LABS: BLOOD UREA NITROGEN 21 MG/DL (7-18); CALCIUM LEVEL 9.1 MG/DL (8.5-10.1); CARBON DIOXIDE LEVEL 31 MEQ/L (21-32); CHLORIDE LEVEL 101 MEQ/L (98-107); CREATININE FOR GFR 0.72 MG/DL (0.70-1.30); GLOMERULAR FILTRATION RATE > 60.0 (>56); GLUCOSE, FASTING 111 MG/DL (70-100); MAGNESIUM LEVEL 2.2 MG/DL (1.8-2.4); PHOSPHORUS LEVEL 3.6 MG/DL (2.5-4.9); POTASSIUM SERUM 4.1 MEQ/L (3.5-5.1); SODIUM LEVEL 139 MEQ/L (136-145)
[2020-03-05] MEDS ORDERED: PILL CUTTER 1 EACH XX ONE (23:24)
[2020-03-05] MEDS: CHLORHEXIDINE GLUCONATE 0.12 % 15ML UDC (PERIDEX ORAL RINSE) SSP SCH (23:48)
[2020-03-06] MEDS: levETIRAcetam 250MG TABLET (KEPPRA) PO SCH ×4 (00:05→21:00)
[2020-03-06] MEDS: PHENYTOIN ER 100 MG CAP PO SCH ×2 (00:05→09:53)
[2020-03-06] MEDS: PHENobarbitaL 30 MG TAB PO SCH (00:06)
[2020-03-06] MEDS: MONTELUKAST 10 MG TAB PO SCH ×3 (00:06→21:00)
[2020-03-06 05:02] VITALS: BP 150/91
[2020-03-06 06:32] LABS: BASO % 0.5 % (0.0-1.0); EOS # 0.1 10^3/uL (0.0-0.5); EOS % 1.6 % (0.0-3.0); HEMATOCRIT 40.8 % (42.0-52.0); HEMOGLOBIN 13.1 g/dl (13.5-17.5); LYMPH # 2.2 10^3/uL (1.5-5.0); LYMPH % 37.5 % (24.0-44.0); MEAN CORPUSCULAR HEMOGLOBIN 28.3 pg (27.0-33.0); MEAN CORPUSCULAR HGB CONC 32.1 g/dl (32.0-36.5); MEAN CORPUSCULAR VOLUME 88.1 fl (80.0-96.0); MONO % 16.8 % (0.0-5.0); NEUTROPHILS # 2.5 10^3/uL (1.5-8.5); NEUTROPHILS % 43.4 % (36.0-66.0); PLATELET COUNT, AUTOMATED 296 10^3/uL (150-450); RED BLOOD COUNT 4.63 10^6/uL (4.30-6.10); WHITE BLOOD COUNT 5.8 10^3/uL (4.0-10.0)
[2020-03-06 07:02] LABS: ALBUMIN 3.9 GM/DL (3.2-5.2); ALT/SGPT 27 U/L (12-78); BILIRUBIN,TOTAL 0.3 MG/DL (0.2-1.0); BLOOD UREA NITROGEN 18 MG/DL (7-18); CARBON DIOXIDE LEVEL 33 MEQ/L (21-32); CHLORIDE LEVEL 100 MEQ/L (98-107); CREATININE FOR GFR 0.75 MG/DL (0.70-1.30); GLOMERULAR FILTRATION RATE > 60.0 (>56); GLUCOSE, FASTING 85 MG/DL (70-100); POTASSIUM SERUM 3.8 MEQ/L (3.5-5.1); SODIUM LEVEL 140 MEQ/L (136-145); TOTAL PROTEIN 7.9 GM/DL (6.4-8.2)
[2020-03-06] MEDS: CHLORHEXIDINE GLUCONATE 0.12 % 15ML UDC (PERIDEX ORAL RINSE) SSP SCH ×3 (09:52→21:00)
[2020-03-06] MEDS: CALCIUM/VITAMIN D 500 MG TAB PO SCH ×3 (09:53→17:41)
[2020-03-06] MEDS: ASPIRIN 81 MG ENTERIC TAB PO SCH (09:53)
[2020-03-06] MEDS: MIRALAX *UNIT DOSE* 17GM PACKET PO SCH (09:53)
[2020-03-06] MEDS: BACLOFEN 10 MG TAB PO SCH ×3 (09:53→17:41)
[2020-03-06] MEDS: ENOXAPARIN 40MG/0.4ML SYRINGE (J1650 PER 10MG) SC SCH (09:53)
[2020-03-06] MEDS: oxyBUTYnin *DITROPAN XL* 5 MG TABCR PO SCH (09:53)
[2020-03-06] MEDS: LORATADINE 10 MG TAB PO SCH (09:54)
[2020-03-06] MEDS: MULTIVITAMINS/MINERALS THERAP 1 TAB PO SCH (09:54)
[2020-03-06 14:00] VITALS: BP 152/78
--- NOTE | 2020-03-06 17:44 | IPNPDOC ---
Text Note Date of Service The patient was seen on 03/06/20. NOTE Subjective: No any acute events overnight. Objective: GENERAL APPEARANCE: NAD HEENT: no scleral icterus, no JVD, EOMI CARDIOVASCULAR: S1S2 LUNGS: Diminished lung sounds bilaterally ABDOMEN: Moderately distended MUSCULOSKELETAL: no cyanosis, no swelling INTEGUMENT: no generalized palor NEUROLOGICAL: follows commands, speech not dysarthric Assessment and plan Mr. Mondragon is a [facility] client and is seen in the ER with a [facility] staff member. They report he's had a 1-2 day history of the listlessness and a decrease interest in food or drink. Yesterday he "had a bowel movement the size of the baby - very large." They thought maybe this would improve his appetite and energy levels but it did not. So they brought him to the ER for further evaluation. Constipation/obstipation Abdominal x-ray showed Moderate left colonic and rectal stool question obstipation. No evidence of free air. No active disease in the chest Continue laxatives Will repeat abdominal x-ray Seizure disorder Chronic We will have him on seizure precautions while here. Continue his home medica tions Phenytoin and phenobarbital on hold due to high level in blood Severe intellectual disabilities He lives and is cared for in [facility]. VS,Fishbone, I+O VS, Fishbone, I+O Laboratory Tests 03/05/20 22:21 03/06/20 06:14 Vital Signs Date Time Temp Pulse Resp B/P (MAP) Pulse Ox O2 Delivery O2 Flow Rate FiO2 03/06/20 14:00 98.0 90 16 152/78 (102) 95 Room Air I&O- Last 24 Hours up to 6 AM 03/06/20 06:00 Intake Total 0 ml Output Total 0 ml Balance 0 ml DELMA BANKS DO Mar 06, 2020 17:44
[2020-03-06] MEDS ORDERED: BISACODYL 5 MG TAB PO PRN (17:45)
--- NOTE | 2020-03-06 19:00 | REP ---
INDICATION: obstipation. COMPARISON: Comparison radiographs are from March 05, 2020.. TECHNIQUE: Three views are obtained. These include supine views of the abdomen and chest and a cross-table lateral view of the upper abdomen. FINDINGS: Chest radiograph shows no evidence of infiltrate or free subdiaphragmatic air. Cardiomediastinal silhouette is unremarkable. The patient is unable to remove the hands from the field of view. Supine and cross-table lateral views of the abdomen show no evidence of free air. There is formed stool in the descending colon and rectum. There is gaseous distention of the proximal colon. The bowel gas pattern is quite similar to the March 05, 2020 study. No evidence of free intraperitoneal air. IMPRESSION: Findings essentially unchanged radiographically from the 05 March 2020 study. Moderate left colonic stool. Proximal colonic a mild gaseous distension.. <Electronically signed by Jarrell Glynn > 03/06/20 2050
[2020-03-06] MEDS: D5W 1,000 ML IV SCH (19:17)
[2020-03-06] MEDS: SENNA 8.6 MG TAB (SENOKOT) PO SCH ×2 (20:51→21:00)
[2020-03-06 22:00] VITALS: BP 141/93
[2020-03-07] MEDS: D5W 1,000 ML IV SCH ×2 (05:39→15:19)
[2020-03-07 06:00] VITALS: BP 159/93
[2020-03-07 08:37] LABS: BASO % 0.5 % (0.0-1.0); EOS # 0.2 10^3/uL (0.0-0.5); EOS % 2.6 % (0.0-3.0); HEMATOCRIT 39.9 % (42.0-52.0); HEMOGLOBIN 13.1 g/dl (13.5-17.5); LYMPH # 2.4 10^3/uL (1.5-5.0); LYMPH % 39.9 % (24.0-44.0); MEAN CORPUSCULAR HEMOGLOBIN 28.1 pg (27.0-33.0); MEAN CORPUSCULAR HGB CONC 32.8 g/dl (32.0-36.5); MEAN CORPUSCULAR VOLUME 85.6 fl (80.0-96.0); MONO # 1.1 10^3/uL (0.0-0.8); MONO % 17.5 % (0.0-5.0); NEUTROPHILS # 2.4 10^3/uL (1.5-8.5); NEUTROPHILS % 39.5 % (36.0-66.0); PLATELET COUNT, AUTOMATED 278 10^3/uL (150-450); RED BLOOD COUNT 4.66 10^6/uL (4.30-6.10); WHITE BLOOD COUNT 6.1 10^3/uL (4.0-10.0)
[2020-03-07 08:55] LABS: ALBUMIN 3.8 GM/DL (3.2-5.2); ALT/SGPT 28 U/L (12-78); BILIRUBIN,TOTAL 0.4 MG/DL (0.2-1.0); BLOOD UREA NITROGEN 12 MG/DL (7-18); CALCIUM LEVEL 8.6 MG/DL (8.5-10.1); CARBON DIOXIDE LEVEL 33 MEQ/L (21-32); CHLORIDE LEVEL 98 MEQ/L (98-107); CREATININE FOR GFR 0.73 MG/DL (0.70-1.30); GLOMERULAR FILTRATION RATE > 60.0 (>56); GLUCOSE, FASTING 102 MG/DL (70-100); POTASSIUM SERUM 3.6 MEQ/L (3.5-5.1); SODIUM LEVEL 136 MEQ/L (136-145); TOTAL PROTEIN 7.8 GM/DL (6.4-8.2)
[2020-03-07] MEDS: MIRALAX *UNIT DOSE* 17GM PACKET PO SCH (09:00)
[2020-03-07] MEDS: MULTIVITAMINS/MINERALS THERAP 1 TAB PO SCH (09:00)
[2020-03-07] MEDS: PHENYTOIN ER 100 MG CAP PO SCH ×2 (09:00→18:22)
[2020-03-07] MEDS: CALCIUM/VITAMIN D 500 MG TAB PO SCH ×2 (09:00→18:08)
[2020-03-07] MEDS: CHLORHEXIDINE GLUCONATE 0.12 % 15ML UDC (PERIDEX ORAL RINSE) SSP SCH ×2 (09:00→22:59)
[2020-03-07] MEDS: levETIRAcetam 250MG TABLET (KEPPRA) PO SCH ×3 (09:00→18:23)
[2020-03-07] MEDS: SENNA 8.6 MG TAB (SENOKOT) PO SCH ×3 (09:00→18:19)
[2020-03-07] MEDS: BACLOFEN 10 MG TAB PO SCH ×2 (09:00→18:18)
[2020-03-07] MEDS: LORATADINE 10 MG TAB PO SCH (09:00)
[2020-03-07] MEDS: oxyBUTYnin *DITROPAN XL* 5 MG TABCR PO SCH (09:00)
[2020-03-07] MEDS: ENOXAPARIN 40MG/0.4ML SYRINGE (J1650 PER 10MG) SC SCH (09:00)
[2020-03-07] MEDS: ASPIRIN 81 MG ENTERIC TAB PO SCH (09:00)
--- NOTE | 2020-03-07 12:49 | IPNPDOC ---
Text Note Date of Service The patient was seen on 03/07/20. NOTE Subjective: No any acute events overnight. Patient did not have bowel movement yet Objective: GENERAL APPEARANCE: NAD HEENT: no scleral icterus, no JVD, EOMI CARDIOVASCULAR: S1S2 LUNGS: Diminished lung sounds bilaterally ABDOMEN: Moderately distended MUSCULOSKELETAL: no cyanosis, no swelling INTEGUMENT: no generalized palor NEUROLOGICAL: follows commands, speech not dysarthric Assessment and plan Mr. Mondragon is a [facility] client and is seen in the ER with a [facility] staff member. They report he's had a 1-2 day history of the listlessness and a decrease interest in food or drink. Yesterday he "had a bowel movement the size of the baby - very large." They thought maybe this would improve his appetite and energy levels but it did not. So they brought him to the ER for further evaluation. Constipation/obstipation Abdominal x-ray showed Moderate left colonic and rectal stool question obstipation. No evidence of free air. No active disease in the chest Continue laxatives Seizure disorder Chronic We will have him on seizure precautions while here. Continue his home medications Phenytoin and phenobarbital on hold due to high level in blood Severe intellectual disabilities He lives and is cared for in [facility]. VS,Greggbone, I+O VS, Fishbone, I+O Laboratory Tests 03/07/20 08:18 Vital Signs Date Time Temp Pulse Resp B/P (MAP) Pulse Ox O2 Delivery O2 Flow Rate FiO2 03/07/20 06:00 98.5 80 16 159/93 (115) 95 Room Air I&O- Last 24 Hours up to 6 AM 03/07/20 06:00 Intake Total 1060 ml Output Total 0 ml Balance 1060 ml DELMA BANKS DO Mar 07, 2020 12:49
[2020-03-07] MEDS ORDERED: POTASSIUM CHLORIDE 10 MEQ SR TABLET PO ONE (13:00)
[2020-03-07] MEDS ORDERED: FLEET ENEMA PR PRN (13:30)
[2020-03-07 14:00] VITALS: BP 170/103
[2020-03-07 14:27] LABS: PHENOBARBITAL LEVEL 41.3 UG/ML (15.0-40.0)
[2020-03-07 16:30] VITALS: BP 165/100
[2020-03-07 18:00] VITALS: BP 144/86
[2020-03-07] MEDS: MONTELUKAST 10 MG TAB PO SCH (18:22)
[2020-03-07 22:00] VITALS: BP 104/51
[2020-03-08 06:00] VITALS: BP 112/56
[2020-03-08] MEDS ORDERED: VANCOMYCIN HCL 750 MG, VIAL MATE ADAPTER 1 EACH in D5W 250 ML IV SCH (06:00)
[2020-03-08] MEDS: D5W 1,000 ML IV SCH (07:15)
[2020-03-08] MEDS: BACLOFEN 10 MG TAB PO SCH ×2 (09:00→16:26)
[2020-03-08] MEDS: oxyBUTYnin *DITROPAN XL* 5 MG TABCR PO SCH (09:00)
[2020-03-08] MEDS: ENOXAPARIN 40MG/0.4ML SYRINGE (J1650 PER 10MG) SC SCH (09:00)
[2020-03-08] MEDS: ASPIRIN 81 MG ENTERIC TAB PO SCH (09:00)
[2020-03-08] MEDS: CHLORHEXIDINE GLUCONATE 0.12 % 15ML UDC (PERIDEX ORAL RINSE) SSP SCH (09:00)
[2020-03-08] MEDS: SENNA 8.6 MG TAB (SENOKOT) PO SCH (09:00)
[2020-03-08] MEDS: MULTIVITAMINS/MINERALS THERAP 1 TAB PO SCH (09:00)
[2020-03-08] MEDS: MIRALAX *UNIT DOSE* 17GM PACKET PO SCH (09:00)
[2020-03-08] MEDS: PHENobarbitaL 30 MG TAB PO SCH (09:00)
[2020-03-08] MEDS: CALCIUM/VITAMIN D 500 MG TAB PO SCH ×2 (09:00→16:26)
[2020-03-08] MEDS: LORATADINE 10 MG TAB PO SCH (09:00)
[2020-03-08] MEDS: levETIRAcetam 250MG TABLET (KEPPRA) PO SCH (09:00)
[2020-03-08] MEDS ORDERED: MAGNESIUM CITRATE 300 ML BTL PO ONE (09:15)
--- NOTE | 2020-03-08 12:48 | REP ---
INDICATION: portable coffee ground emesis. COMPARISON: None. TECHNIQUE: AP portable supine abdomen performed. FINDINGS: Moderate fecal material is seen throughout the colon. No dilated small bowel loops are seen, with no evidence of small bowel obstruction radiographically. There is phlebolith in the right pelvis as well as vascular calcifications. There are mild degenerative changes of the spine and hips. IMPRESSION: Fecal retention. <Electronically signed by Bao Dudley > 03/08/20 [id number]
[2020-03-08 12:55] LABS: BASO % 0.1 % (0.0-1.0); EOS % 0.1 % (0.0-3.0); HEMATOCRIT 40.9 % (42.0-52.0); HEMOGLOBIN 13.4 g/dl (13.5-17.5); LYMPH # 1.3 10^3/uL (1.5-5.0); LYMPH % 9.3 % (24.0-44.0); MEAN CORPUSCULAR HEMOGLOBIN 27.3 pg (27.0-33.0); MEAN CORPUSCULAR HGB CONC 32.8 g/dl (32.0-36.5); MEAN CORPUSCULAR VOLUME 83.5 fl (80.0-96.0); MONO # 2.1 10^3/uL (0.0-0.8); MONO % 15.4 % (0.0-5.0); NEUTROPHILS # 10.2 10^3/uL (1.5-8.5); NEUTROPHILS % 74.7 % (36.0-66.0); PLATELET COUNT, AUTOMATED 310 10^3/uL (150-450); WHITE BLOOD COUNT 13.6 10^3/uL (4.0-10.0)
[2020-03-08] MEDS: GASTROGRAFIN SOLUTION 30ML PO SCH ×2 (13:15→15:13)
[2020-03-08 13:32] LABS: ALBUMIN 3.6 GM/DL (3.2-5.2); ALT/SGPT 28 U/L (12-78); BILIRUBIN,TOTAL 0.4 MG/DL (0.2-1.0); BLOOD UREA NITROGEN 22 MG/DL (7-18); CALCIUM LEVEL 8.6 MG/DL (8.5-10.1); CARBON DIOXIDE LEVEL 36 MEQ/L (21-32); CHLORIDE LEVEL 91 MEQ/L (98-107); CREATININE FOR GFR 1.22 MG/DL (0.70-1.30); GLOMERULAR FILTRATION RATE > 60.0 (>56); GLUCOSE, FASTING 164 MG/DL (70-100); MAGNESIUM LEVEL 2.4 MG/DL (1.8-2.4); SODIUM LEVEL 133 MEQ/L (136-145); TOTAL PROTEIN 7.3 GM/DL (6.4-8.2)
[2020-03-08 14:00] VITALS: BP 97/51
[2020-03-08] MEDS ORDERED: ISOVUE-370 76% 100ML VIAL As Ordered ONE (14:08)
--- NOTE | 2020-03-08 15:10 | REP ---
INDICATION: obstipation. Diffuse abdominal pain. COMPARISON: Comparison CT study February 19, 2017.. TECHNIQUE: Helical scanning is acquired and 3 mm axial images re-formatted. Coronal and sagittal MPR images are generated. The CT contrast enhancement dose is 100 mL of intravenous Isovue 370. FINDINGS: Preliminary digital client resource specialist radiograph demonstrates moderate stool in the ascending and descending colon and rectum. Bowel gas pattern is otherwise unremarkable. There is a small right pleural effusion which is a new finding compared with the February 19, 2017 study. The lung bases are otherwise clear. There is a sliding-type hiatal hernia again noted. There is some mural thickening of the distal esophagus suggesting reflux esophagitis. There is no evidence of ascites in the upper abdomen. The liver and spleen are normal in size homogeneous in texture. No abnormality is noted in the pancreas. The gallbladder is mildly distended but otherwise appears intact. Normal adrenal glands are seen. The kidneys enhance symmetrically. There are small cortical cysts in the left kidney. No hydronephrosis is seen. No retroperitoneal mass or adenopathy is observed. There is mild to moderate distention of the rectum with cyst formed stool. Similarly, sigmoid and descending colon loops are mildly distended for filled with stool. Moderate stool is seen in the ascending colon. There is subtle mural thickening and bowel wall enhancement in the rectum raising question of early stercoral colitis. Prostate gland contains calcifications and is mildly enlarged. Urinary bladder is mildly distended although it is displaced anteriorly by the dilated rectum. There are a few loops of fluid-filled small bowel in the distal abdomen. No evidence of small bowel obstruction. No free air or abscess seen. IMPRESSION: Obstipation/fecal impaction pattern. Minimal rectal wall thickening and enhancement raises the question of early stercoral colitis. Mild urinary bladder and gallbladder distention. Prostate enlargement. Small right pleural effusion. <Electronically signed by Jarrell Glynn > 03/08/20 [id number]
[2020-03-08] MEDS: levETIRAcetam INJection 750 MG in D5W 100 ML IV SCH (15:12)
[2020-03-08] MEDS ORDERED: ONDANSETRON 4MG/2ML VIAL IV PRN (15:30)
--- NOTE | 2020-03-08 15:36 | IPNPDOC ---
Text Note Date of Service The patient was seen on 03/08/20. NOTE Subjective: Overnight patient had multiple episodes of vomiting. In the morning 2 episodes of projectile coffee-ground vomiting. Later today patient did have large bowel movement Objective: GENERAL APPEARANCE: NAD HEENT: no scleral icterus, no JVD, EOMI CARDIOVASCULAR: S1S2 LUNGS: Diminished lung sounds bilaterally ABDOMEN: Moderately distended MUSCULOSKELETAL: no cyanosis, no swelling INTEGUMENT: no generalized pallor NEUROLOGICAL: follows commands, speech not dysarthric Assessment and plan Mr. Mondragon is a [facility] client and is seen in the ER with a [facility] staff member. They report he's had a 1-2 day history of the listlessness and a decrease interest in food or drink. Yesterday he "had a bowel movement the size of the baby - very large." They thought maybe this would improve his appetite and energy levels but it did not. So they brought him to the ER for further evaluation. Constipation/obstipation/projectile vomiting Resolved Patient did have multiple episodes of projectile vomiting CT abdomen/pelvis Appreciate/agree with surgical consult Gastrografin study Hemoglobin stable Zofran IV Seizure disorder Chronic IV Keppra Phenytoin and phenobarbital on hold due to high level in blood Severe intellectual disabilities He lives and is cared for in [facility]. VS,Greggbone, I+O VS, Fishbone, I+O Laboratory Tests 03/08/20 12:35 Vital Signs Date Time Temp Pulse Resp B/P (MAP) Pulse Ox O2 Delivery O2 Flow Rate FiO2 03/08/20 14:00 97.3 95 17 97/51 (66) 99 Room Air I&O- Last 24 Hours up to 6 AM 03/08/20 06:00 Intake Total 1020 ml Output Total 0 ml Balance 1020 ml DELMA BANKS DO Mar 08, 2020 15:35
[2020-03-08] MEDS: PANTOPRAZOLE 40MG VIAL (C9113 PER 1) IV SCH (16:25)
[2020-03-08 20:15] VITALS: BP 95/53
--- NOTE | 2020-03-08 20:40 | CR ---
CONSULTATION DATE: 03/08/2020 REASON FOR CONSULTATION: Obstipation with vomiting. HISTORY OF PRESENT ILLNESS: Then patient is a 59-year-old man who was admitted by the hospitalist on the February, in the evening. The patient has an underlying severe developmental intellectual disability. He is currently nonambulatory. He apparently does speak a few words. He was brought to emergency department on the by a [facility] staff member who reported that he had a 1-2 day history of some listlessness and decreased interest in food or drink. It was reported that he had had a very large bowel movement the previous day. He apparently has a history of some chronic constipation. He also has a known seizure disorder. He was admitted and started on some additional laxative medications after an abdominal x-ray suggested some prominent fecal material in the colon. The x-ray did not suggest a small bowel obstruction. He has not yet had a bowel movement since admission. He also developed some emesis on the morning of the . This was described as projectile vomiting. This was early in the morning of the . Subsequently he apparently also had some emesis of some coffee ground type material. An attempt was made to place an NG tube but he reportedly had a seizure during this attempt and the tube was removed. I was asked to evaluate the patient for recommendations. ALLERGIES: The patient has no recorded drug allergies. MEDICATIONS AT HOME: 1. Amlodipine 2.5 mg p.o. nightly at bedtime. 2. Aspirin 81 mg p.o. daily. 3. Baclofen 10 mg p.o. twice daily. 4. Calcium carbonate with vitamin D3 one tablet twice daily. 5. Vitamin D3 50 mcg p.o. daily. 6. Lansoprazole 30 mg p.o. daily. 7. Levetiracetam 750 mg p.o. twice daily. 8. Loratadine 20 mg p.o. daily. 9. Montelukast 10 mg p.o. q.h.s. 10. A multivitamin tablet daily. 11. Ditropan XL 5 mg p.o. daily. 12. Phenobarbital 32.4 mg p.o. three times daily. 13. Dilantin extended release 100 mg p.o. daily and 200 mg p.o. q.h.s. 14. MiraLax 17 gm p.o. daily in water. 15. Senna-Lax 17.2 mg p.o. q.h.s. PAST MEDICAL HISTORY: 1. Underlying developmental, intellectual disability. 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 2. He has a seizure disorder. 3. Lacunar cerebrovascular accidents. 4. Hypertension. 5. Osteoporosis. 6. Gastroesophageal reflux. 7. Chronic constipation. 8. Vitamin D deficiency. 9. 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. 10. Dyshidrotic eczema. PAST SURGICAL HISTORY: Significant only for a colonoscopy in 2013. FAMILY HISTORY: Significant for his father having from heart disease in his 40s and his mother also in her 40s of heart disease. SOCIAL HISTORY: He is a nonsmoker and does not drink any alcohol. REVIEW OF SYSTEMS: Not obtainable directly from the patient. PHYSICAL EXAMINATION: General: The patient is examined lying quietly in the hospital bed. He has a [facility] aide at the bedside. The patient does note my presence and made eye contact when I approached. At the coaxing of the aide, he did say hello. He appears to have some degree of upper extremity contractures. Skin: Warm and dry. HEENT: Sclerae are anicteric. Mucous membranes appear moist. He does have some dried, brownish coffee ground type material on the bedclothes and his adult diaper. Neck: Appears supple without palpable mass. Heart: Shows a regular rhythm and he is not tachycardic. Lungs: Appear clear anteriorly. Abdomen: Perhaps mildly protuberant. He has bowel sounds present in all four quadrants. He has no abdominal scars. There is no evident inguinal, umbilical or ventral hernia. There is no tenderness to percussion and no tympany to percussion. Abdomen: Soft throughout without appreciable mass. Extremities: Lower extremities are without apparent edema and he has palpable radial and pedal pulses. LABORATORY STUDIES: At 12:35 today showed a white count of 14,000, hemoglobin 13, hematocrit 41 and a platelet count of 310,000. Differential count showed 75% neutrophils, 9% lymphocytes and 15% monocytes. His chemistries showed a sodium of 133, potassium of 3.0, chloride 91, CO2 of 36, BUN of 22, creatinine 1.2 and a glucose of 164. Liver function tests are normal with a normal magnesium. Total protein is 7.3 with an albumin of 3.6. He had phenytoin and phenobarbital levels yesterday of 37.0 and 41.3. He had an abdominal x-ray on the and the and the . These showed some air in the colon with some fecal material fairly prominently in the left colon and in also the ascending colon. There was no evidence of bowel obstruction. A CT scan of the abdomen and pelvis was obtained right about noon on the . The radiologist's interpretation was that there was a minimal right pleural effusion and the lungs were otherwise clear. There was no evidence of ascites or free intra-abdominal air. There was some stool noted prominently in the descending and sigmoid colons and rectum. There was also some stool noted in the ascending colon. IMPRESSION: 1. Chronic constipation with probable acute exacerbation. 2. Vomiting of uncertain etiology. 3. Developmental, intellectual disability. 4. Cerebral palsy with spastic quadriparesis. 5. Seizure disorder. 6. History of lacunar CVAs. 7. Hypertension. 8. Osteoporosis. 9. Gastroesophageal reflux. 10. Vitamin D deficiency. 11. 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. 12. Dyshidrotic eczema. RECOMMENDATIONS: At this point, the patient does not appear to have an acute need for surgical intervention. I do not know the cause of his emesis today. The emesis may just represent an overload with an intolerance of more oral laxative preparations. I do think he should remain on a proton pump inhibitor at this point. I do not think he needs another workup for his coffee ground emesis. I will make some changes to his laxative meds in removing the magnesium citrate and substituting some lactulose. I will also increase the frequency of his Fleet enemas in hopes that this will shift some of the more distal stool. I would anticipate it may take several days for him to be cleaned out before we could consider advancing his diet again. JEANIE
[2020-03-08] MEDS ORDERED: NS 1,000 ML IV ONE (20:45)
[2020-03-08 20:46] LABS: BASO % 0.2 % (0.0-1.0); HEMOGLOBIN 13.2 g/dl (13.5-17.5); LYMPH # 1.4 10^3/uL (1.5-5.0); LYMPH % 8.1 % (24.0-44.0); MEAN CORPUSCULAR HEMOGLOBIN 27.5 pg (27.0-33.0); MEAN CORPUSCULAR HGB CONC 32.2 g/dl (32.0-36.5); MEAN CORPUSCULAR VOLUME 85.4 fl (80.0-96.0); MONO # 2.6 10^3/uL (0.0-0.8); MONO % 14.3 % (0.0-5.0); NEUTROPHILS # 13.7 10^3/uL (1.5-8.5); PLATELET COUNT, AUTOMATED 286 10^3/uL (150-450); WHITE BLOOD COUNT 17.9 10^3/uL (4.0-10.0)
[2020-03-08 20:50] VITALS: BP 106/83
[2020-03-08 21:00] VITALS: BP 106/83
[2020-03-08] MEDS ORDERED: SODIUM CHLORIDE 0.9% 1000ML IV ONE (21:00)
[2020-03-08] MEDS ORDERED: VANCOMYCIN HCL 1,000 MG, VIAL MATE ADAPTER 1 EACH in D5W 250 ML IV SCH (21:00)
[2020-03-08 21:05] VITALS: BP 123/73
[2020-03-08 21:25] LABS: ALBUMIN 3.5 GM/DL (3.2-5.2); BILIRUBIN,TOTAL 0.4 MG/DL (0.2-1.0); C REACTIVE PROTEIN QUANTITATIV 5.02 MG/DL (0.00-0.30); CALCIUM LEVEL 8.7 MG/DL (8.5-10.1); CK-MB VALUE MASS 1.7 NG/ML (<3.6); CREATININE FOR GFR 1.85 MG/DL (0.70-1.30); GLOMERULAR FILTRATION RATE 40.3 (>56); MB/CK RELATIVE INDEX 1.48 (< OR =4); POTASSIUM SERUM 3.5 MEQ/L (3.5-5.1); TOTAL PROTEIN 7.2 GM/DL (6.4-8.2); TROPONIN I 0.03 NG/ML (< 0.10)
--- NOTE | 2020-03-08 21:26 | REPVR ---
PROCEDURE INFORMATION: Exam: XR Chest, 1 View Exam date and time: 03/08/2020 8:54 PM Age: 59 years old Clinical indication: Other: Obstruction; Additional info: R/O bowel perf TECHNIQUE: Imaging protocol: XR of the chest Views: 1 view. COMPARISON: [place] PORTABLE CHEST X-RAY 01/17/2020 6:47 PM FINDINGS: Tubes, catheters and devices: NG tube coiled in the left upper quadrant consistent with intragastric location. Lungs: Unremarkable. No consolidation. Pleural space: Unremarkable. No pleural effusion. No pneumothorax. Heart/Mediastinum: Unremarkable. No cardiomegaly. Bones/joints: Dextroscoliosis. IMPRESSION: No acute findings. Electronically signed by: Antolin Price On 03/08/2020 21:26:17 PM
[2020-03-08] MEDS ORDERED: PIPERACILLIN/TAZOBACTAM SOD 3.375 GM in D5W MINI-BAG PLUS 50 ML IV SCH (22:00)
[2020-03-08] MEDS ORDERED: KCL 10MEQ/100ML SWI (KRUN) 10 MEQ in IV 1 EA IV SCH (22:00)
--- NOTE | 2020-03-08 22:02 | IPNPDOC ---
Date Seen The patient was seen on 03/08/20. Progress Note INTERIM PROGRESS NOTE: JENNIE CORREA was called on this patient around 20:30 as nursing found him to be hypotensive (systolic 90s), tachypneic, and unresponsive. The patient is currently admitted for obstipation and lethargy/listlessness x 3 days. Reportedly, the patient had several episodes of coffee ground emesis this morning and a seizure, for which he was put on IV Keppra. Day hospitalist o btained CT abd/pel and abdominal XR which only showed constipation. Surgery consult was called (Dr. Pate) who found patient to have benign abdomen and adjusted stool softeners/enema medications. Nursing reports day team was unable to place NG tube as patient had been seizing. On my assessment, I found the patient to be at his baseline posturing and groaning in bed. He did not appear in any acute distress. Abdomen is distended but soft with positive bowel sounds. #Sepsis: unk etiology, possibly aspiration PNA from vomiting earlier today -Start empiric broad spectrum abx: Vanc/Zosyn -3 x 1L fluid boluses. (BP responding to fluids) -CBC demonstrates elevated WBC up to 17.9 from 13.6 earlier today -CRP elevated at 5.02 -lactic acid elevated at 2.7 -Blood cultures pending -Gallbladder found to be distended on CT abd/pelvis earlier today. Will order gallbladder US -CXR negative for PNA -UA negative for UTI #AUDREY: -Cr up to 1.85 from 1.22. Likely prerenal. Will order urine lytes -Place partida catheter #Hx seizures: -Received IV keppra around noon today -Seizure precautions, aspiration precautions, elevate head of bed #Recent coffee-ground emesis: -Place NG tube, CXR confirmed placement -NPO -IV protonix -H/H stable. Will trend Q6H #hypokalemia: -Potassium replaced DVT ppx: Lovenox Patient is FULL CODE at this time. Contact in chart is for brother who lives in [place]. Will call and update him and inquire about any changes or further direction with advance directives. VS, I&O, 24H, Fishbone Vital Signs/I&O Vital Signs Date Time Temp Pulse Resp B/P (MAP) Pulse Ox O2 Delivery O2 Flow Rate FiO2 03/08/20 14:00 97.3 95 17 97/51 (62) 99 Room Air I&O- Last 24 Hours up to 6 AM 03/08/20 06:00 Intake Total 1020 ml Output Total 0 ml Balance 1020 ml Laboratory Data 24H LABS Laboratory Tests 2 03/08/20 12:35: Immature Granulocyte % (Auto) 0.4, Neutrophils (%) (Auto) 74.7H, Lymphocytes (%) (Auto) 9.3L, Monocytes (%) (Auto) 15.4H, Eosinophils (%) (Auto) 0.1, Basophils (%) (Auto) 0.1, Neutrophils # (Auto) 10.2H, Lymphocytes # (Auto) 1.3L, Monocytes # (Auto) 2.1H, Eosinophils # (Auto) 0.0, Basophils # (Auto) 0.0, Nucleated Red Blood Cells % (auto) 0.0, Anion Gap 6L, Glomerular Filtration Rate > 60.0, Calcium Level 8.6, Magnesium Level 2.4, Total Bilirubin 0.4, Aspartate Amino Transf (AST/SGOT) 13, Alanine Aminotransferase (ALT/SGPT) 28, Alkaline Phosphatase 139H, Total Protein 7.3, Albumin 3.6, Albumin/Globulin Ratio 1.0 03/08/20 20:39: Immature Granulocyte % (Auto) 0.4, Neutrophils (%) (Auto) 77.0H, Lymphocytes (%) (Auto) 8.1L, Monocytes (%) (Auto) 14.3H, Eosinophils (%) (Auto) 0.0, Basophils (%) (Auto) 0.2, Neutrophils # (Auto) 13.7H, Lymphocytes # (Auto) 1.4L, Monocytes # (Auto) 2.6H, Eosinophils # (Auto) 0.0, Basophils # (Auto) 0.0, Nucleated Red Blood Cells % (auto) 0.0, Anion Gap 7L, Glomerular Filtration Rate 40.3L, Calcium Level 8.7, Total Bilirubin 0.4, Aspartate Amino Transf (AST/SGOT) 16, Alanine Aminotransferase (ALT/SGPT) 28, Alkaline Phosphatase 133H, Total Protein 7.2, Albumin 3.5, Albumin/Globulin Ratio 0.9, Lactic Acid Level 2.7*H, Total Creatine Kinase 115, Creatine Kinase MB 1.7, Creatine Kinase MB Relative Index 1.48, Troponin I 0.03, C-Reactive Protein, Quantitative 5.02H 03/08/20 21:18: Urine Color YELLOW, Urine Appearance HAZY, Urine pH 6.0, Urine Specific [place] 1.058, Urine Protein 1+H, Urine Glucose (UA) NEGATIVE, Urine Ketones NEGATIVE, Urine Blood NEGATIVE, Urine Nitrite NEGATIVE, Urine Bilirubin NEGATIVE, Urine Urobilinogen 0.2, Urine Leukocyte Esterase NEGATIVE, Urine WBC (Auto) 3, Urine RBC (Auto) 2, Urine Hyaline Casts (Auto) 0, Urine Bacteria (Auto) NEGATIVE, Urine Squamous Epithelial Cells 0, Urine Mucus (Auto) SMALL, Urine Sperm (Auto) CBC/BMP Laboratory Tests 03/08/20 12:35 03/08/20 20:39 Microbiology Microbiology 03/08/20 Blood Culture, Received Pending 03/08/20 Blood Culture, Received Pending GME ATTESTATION GME ATTESTATION My faculty preceptor for this patient encounter was physically present during the encounter and was fully available. All aspects of the patient interview, examination, medical decision making process, and medical care plan development were reviewed and approved by the faculty preceptor. The faculty preceptor is aware and concurs with the plan as stated in the body of this note and will attest to such by his/her cosignature. EDWIN HILL MD Mar 08, 2020 22:01
--- NOTE | 2020-03-08 22:40 | REPVR ---
PROCEDURE INFORMATION: Exam: US Abdomen, Limited; Right Upper Quadrant Exam date and time: 03/08/20 (9:04pm) Age: 59 years old Clinical indication: Distended gallbladder seen on recent CT scan. Patient mentally challenged. TECHNIQUE: Imaging protocol: US abdomen. Real time ultrasound with image documentation. Limited examination focused on the right upper quadrant. COMPARISON: US RENAL DOPPLER FLOW of 10/21/16 CT ABDOMEN PELVIS of 03/08/20 FINDINGS: Patient unable to follow commands. patient's arm over his RUQ area. Limited examination. The liver is visually normal in size and texture. Distended gallbladder (10.2 x 3.8 x 4.4 cm in dimensions). Thin gallbladder wall (1.4 mm thickness). No stones nor sludge. No pericholecystic fluid is appreciated. The sonographic Moore's sign is reported to be (-). The CBD is not dilated (4.1 mm diameter). The pancreas is obscured by bowel gas. The right kidney measures 10.8 cm in length, with no hydronephrosis appreciated. No ascites is seen. IMPRESSION: No definite evidence of acute cholecystitis. Distended gallbladder. No gallstones nor sludge. No biliary dilatation. The pancreas is obscured by bowel gas. Electronically signed by: Sonali Vences On 03/08/2020 22:40:51 PM
[2020-03-08] MEDS: KCL 10MEQ/100ML SWI (KRUN) 10 MEQ in IV 1 EA IV SCH (23:22)
[2020-03-09] VITALS: BP 135/65
[2020-03-09] MEDS: PIPERACILLIN/TAZOBACTAM SOD 3.375 GM in D5W MINI-BAG PLUS 50 ML IV SCH ×4 (00:46→18:23)
[2020-03-09 01:29] LABS: ABG BASE EXCESS 2.3 (-2.0-2.0); ABG HCO3 27.2 MEQ/L (22.0-26.0); ABG O2 SATURATION 97.6 % (95.0-99.0); ABG PARTIAL PRESSURE CO2 43.2 mmHg (35.0-45.0); ABG PARTIAL PRESSURE O2 101.3 mmHg (75.0-100.0); ABG STANDARD HCO3 26.6 MEQ/L (22.0-26.0); ABG TOTAL CO2 28.5 MEQ/L (22.0-29.0); ABG pH (ARTERIAL) 7.417 UNITS (7.350-7.450)
[2020-03-09] MEDS: MIRALAX *UNIT DOSE* 17GM PACKET PO SCH ×4 (01:37→22:13)
[2020-03-09] MEDS: LACTULOSE 20 GM/30 ML SYRUP UD PO SCH ×4 (01:37→22:13)
[2020-03-09] MEDS: SENNA 8.6 MG TAB (SENOKOT) PO SCH ×4 (01:38→22:11)
[2020-03-09] MEDS: CHLORHEXIDINE GLUCONATE 0.12 % 15ML UDC (PERIDEX ORAL RINSE) SSP SCH ×4 (01:38→22:13)
[2020-03-09] MEDS: MONTELUKAST 10 MG TAB PO SCH ×3 (01:38→22:13)
[2020-03-09] MEDS ORDERED: VANCOMYCIN HCL 1,000 MG, VIAL MATE ADAPTER 1 EACH in D5W 250 ML IV SCH (02:00)
[2020-03-09] MEDS: FLEET ENEMA PR SCH ×2 (02:10→10:51)
[2020-03-09] MEDS: KCL 10MEQ/100ML SWI (KRUN) 10 MEQ in IV 1 EA IV SCH (02:10)
[2020-03-09] MEDS: levETIRAcetam INJection 750 MG in D5W 100 ML IV SCH ×2 (03:00→15:40)
[2020-03-09 04:00] VITALS: BP 137/71
[2020-03-09] MEDS: D5W 1,000 ML IV SCH ×2 (04:31→15:44)
[2020-03-09 05:27] LABS: HEMATOCRIT 34.4 % (42.0-52.0); HEMOGLOBIN 11.4 g/dl (13.5-17.5); MEAN CORPUSCULAR HEMOGLOBIN 28.1 pg (27.0-33.0); MEAN CORPUSCULAR HGB CONC 33.1 g/dl (32.0-36.5); MEAN CORPUSCULAR VOLUME 84.7 fl (80.0-96.0); PLATELET COUNT, AUTOMATED 228 10^3/uL (150-450); RED BLOOD COUNT 4.06 10^6/uL (4.30-6.10); WHITE BLOOD COUNT 14.7 10^3/uL (4.0-10.0)
[2020-03-09 08:00] VITALS: BP 134/77
--- NOTE | 2020-03-09 08:10 | ECGEPIP ---
[facility] Test Date: 2020-03-08 Pat Name: NKECHI OSPINA Department: Room: [place] [address] Gender: Male Train Planner: [id number] : [id number] Requested By: EDWIN HILL Order Number: [id number] Reading MD: Jonelle Chu Measurements Intervals [place] Rate: 101 P: 56 VT: 128 QRS: 53 QRSD: 85 T: 51 QT: 332 QTc: 431 Interpretive Statements SINUS TACHYCARDIA LEFT ATRIAL ENLARGEMENT NEW NONSPECIFIC ST ABN LATERALLY C/W 10/17/16 Electronically Signed on 03-09-2020 8:09:46 EST by Jonelle Chu
--- NOTE | 2020-03-09 08:49 | REP ---
INDICATION: constipation COMPARISON: None. TECHNIQUE: Supine view of the abdomen and pelvis. FINDINGS: Bowel gas pattern is nonspecific and without obstruction or perforation. Mild fecal stasis cannot be excluded. No organomegaly. No abnormal calcifications. Skeletal structures intact. IMPRESSION: Questionable mild fecal stasis. No bowel obstruction or perforation. <Electronically signed by Gokul Ragsdale > 03/09/20 0816
[2020-03-09] MEDS: CALCIUM/VITAMIN D 500 MG TAB PO SCH ×2 (09:30→15:40)
[2020-03-09] MEDS: MULTIVITAMINS/MINERALS THERAP 1 TAB PO SCH (09:30)
[2020-03-09] MEDS: oxyBUTYnin *DITROPAN XL* 5 MG TABCR PO SCH (09:30)
[2020-03-09] MEDS: BACLOFEN 10 MG TAB PO SCH ×2 (09:30→15:40)
[2020-03-09] MEDS: ENOXAPARIN 40MG/0.4ML SYRINGE (J1650 PER 10MG) SC SCH (09:30)
[2020-03-09] MEDS: ASPIRIN 81 MG ENTERIC TAB PO SCH (09:30)
[2020-03-09] MEDS: LORATADINE 10 MG TAB PO SCH (09:30)
[2020-03-09] MEDS ORDERED: VANCOMYCIN HCL 750 MG, VIAL MATE ADAPTER 1 EACH in D5W 250 ML IV SCH (10:00)
[2020-03-09 10:41] LABS: BASO % 0.2 % (0.0-1.0); EOS # 0.1 10^3/uL (0.0-0.5); EOS % 0.5 % (0.0-3.0); HEMATOCRIT 32.5 % (42.0-52.0); HEMOGLOBIN 10.7 g/dl (13.5-17.5); LYMPH # 1.7 10^3/uL (1.5-5.0); LYMPH % 11.8 % (24.0-44.0); MEAN CORPUSCULAR HGB CONC 32.9 g/dl (32.0-36.5); MEAN CORPUSCULAR VOLUME 85.1 fl (80.0-96.0); MONO # 1.9 10^3/uL (0.0-0.8); MONO % 13.7 % (0.0-5.0); NEUTROPHILS # 10.2 10^3/uL (1.5-8.5); NEUTROPHILS % 73.4 % (36.0-66.0); PLATELET COUNT, AUTOMATED 212 10^3/uL (150-450); RED BLOOD COUNT 3.82 10^6/uL (4.30-6.10); WHITE BLOOD COUNT 13.9 10^3/uL (4.0-10.0)
[2020-03-09 10:57] LABS: BLOOD UREA NITROGEN 16 MG/DL (7-18); CARBON DIOXIDE LEVEL 31 MEQ/L (21-32); CHLORIDE LEVEL 101 MEQ/L (98-107); CREATININE FOR GFR 1.07 MG/DL (0.70-1.30); GLOMERULAR FILTRATION RATE > 60.0 (>56); GLUCOSE, FASTING 75 MG/DL (70-100); POTASSIUM SERUM 3.4 MEQ/L (3.5-5.1); SODIUM LEVEL 138 MEQ/L (136-145)
[2020-03-09 10:58] LABS: ALBUMIN 3.1 GM/DL (3.2-5.2); ALT/SGPT 25 U/L (12-78); BILIRUBIN,TOTAL 0.4 MG/DL (0.2-1.0); CALCIUM LEVEL 7.9 MG/DL (8.5-10.1); TOTAL PROTEIN 6.3 GM/DL (6.4-8.2)
--- NOTE | 2020-03-09 11:13 | IPNPDOC ---
Text Note Date of Service The patient was seen on 03/09/20. NOTE Subjective: Overnight patient was hypotensive and developed leukocytosis. NG tube placed by night team, broad-spectrum antibiotics started Objective: GENERAL APPEARANCE: NAD HEENT: no scleral icterus, no JVD, EOMI CARDIOVASCULAR: S1S2 LUNGS: Diminished lung sounds bilaterally ABDOMEN: Moderately distended MUSCULOSKELETAL: no cyanosis, no swelling INTEGUMENT: no generalized pallor NEUROLOGICAL: follows commands, speech not dysarthric Assessment and plan Mr. Mondragon is a [facility] client and is seen in the ER with a [facility] staff member. They report he's had a 1-2 day history of the listlessness and a decrease interest in food or drink. Yesterday he "had a bowel movement the size of the baby - very large." They thought maybe this would improve his appetite and energy levels but it did not. So they brought him to the ER for further evaluation. Sepsis Patient developed leukocytosis with hypotension most likely secondary to aspiration versus colitis CT abdomen and pelvis on 03/08/20 showed Obstipation/fecal impaction pattern. Minimal rectal wall thickening and enhancement raises the question of early stercoral colitis. Mild urinary bladder and gallbladder distention. Prostate enlargement. Small right pleural effusion. Abdomen/pelvis x-ray showed Questionable mild fecal stasis. No bowel obstruction or perforation IV fluid Await blood culture Continue Zosyn IV Constipation/obstipation/projectile vomiting Resolved Gastrografin study Hemoglobin stable Zofran IV DC NG tube Seizure disorder Chronic IV Keppra Severe intellectual disabilities He lives and is cared for in [facility]. VS,Fishbone, I+O VS, Fishbone, I+O Laboratory Tests 03/08/20 12:35 03/08/20 20:39 03/09/20 04:58 03/09/20 06:00 03/09/20 10:30 Vital Signs Date Time Temp Pulse Resp B/P (MAP) Pulse Ox O2 Delivery O2 Flow Rate FiO2 03/09/20 08:00 98.1 100 20 134/77 (96) 94 Room Air I&O- Last 24 Hours up to 6 AM 03/09/20 05:59 Intake Total 0 ml Output Total 1100 ml Balance -1100 ml DELMA BANKS DO Mar 09, 2020 11:13
[2020-03-09 12:00] VITALS: BP 136/62
[2020-03-09] MEDS ORDERED: POTASSIUM CHLORIDE 10 MEQ SR TABLET PO ONE (12:00)
[2020-03-09] MEDS: PANTOPRAZOLE 40MG VIAL (C9113 PER 1) IV SCH (15:39)
[2020-03-09 16:00] VITALS: BP 135/63
[2020-03-09 20:00] VITALS: BP 136/71
[2020-03-09] MEDS: PHENYTOIN ER 100 MG CAP PO SCH (21:00)
[2020-03-09] MEDS: PHENobarbitaL 30 MG TAB PO SCH ×3 (21:00→22:15)
[2020-03-10] VITALS: BP 109/67
[2020-03-10] MEDS: PIPERACILLIN/TAZOBACTAM SOD 3.375 GM in D5W MINI-BAG PLUS 50 ML IV SCH ×3 (01:02→11:53)
[2020-03-10] MEDS: levETIRAcetam INJection 750 MG in D5W 100 ML IV SCH ×2 (02:49→15:13)
[2020-03-10 04:00] VITALS: BP 107/51
[2020-03-10] MEDS: D5W 1,000 ML IV SCH ×2 (04:05→09:06)
[2020-03-10 07:09] LABS: BASO # 0.1 10^3/uL (0.0-0.2); BASO % 0.6 % (0.0-1.0); EOS # 0.4 10^3/uL (0.0-0.5); HEMATOCRIT 31.5 % (42.0-52.0); HEMOGLOBIN 10.3 g/dl (13.5-17.5); LYMPH # 2.1 10^3/uL (1.5-5.0); LYMPH % 25.4 % (24.0-44.0); MEAN CORPUSCULAR HEMOGLOBIN 28.5 pg (27.0-33.0); MEAN CORPUSCULAR HGB CONC 32.7 g/dl (32.0-36.5); MEAN CORPUSCULAR VOLUME 87.3 fl (80.0-96.0); MONO # 1.3 10^3/uL (0.0-0.8); MONO % 16.2 % (0.0-5.0); NEUTROPHILS # 4.4 10^3/uL (1.5-8.5); NEUTROPHILS % 52.7 % (36.0-66.0); PLATELET COUNT, AUTOMATED 183 10^3/uL (150-450); RED BLOOD COUNT 3.61 10^6/uL (4.30-6.10); WHITE BLOOD COUNT 8.3 10^3/uL (4.0-10.0)
[2020-03-10 07:39] LABS: ALT/SGPT 24 U/L (12-78); BILIRUBIN,TOTAL 0.6 MG/DL (0.2-1.0); BLOOD UREA NITROGEN 6 MG/DL (7-18); CALCIUM LEVEL 8.3 MG/DL (8.5-10.1); CARBON DIOXIDE LEVEL 32 MEQ/L (21-32); CHLORIDE LEVEL 103 MEQ/L (98-107); CREATININE FOR GFR 0.77 MG/DL (0.70-1.30); GLOMERULAR FILTRATION RATE > 60.0 (>56); GLUCOSE, FASTING 109 MG/DL (70-100); POTASSIUM SERUM 3.5 MEQ/L (3.5-5.1); SODIUM LEVEL 139 MEQ/L (136-145); TOTAL PROTEIN 6.4 GM/DL (6.4-8.2)
[2020-03-10 08:00] VITALS: BP 141/79
[2020-03-10] MEDS ORDERED: SENN-52 PO ×2 (09:25→09:27)
[2020-03-10] MEDS ORDERED: PHEN32.44 PO ×3 (09:25→11:59)
[2020-03-10] MEDS ORDERED: BISAC5TA PO ×2 (09:25→12:13)
[2020-03-10] MEDS ORDERED: DILA100C PO ×4 (09:25→11:59)
[2020-03-10] MEDS: ENOXAPARIN 40MG/0.4ML SYRINGE (J1650 PER 10MG) SC SCH (09:27)
[2020-03-10] MEDS: BACLOFEN 10 MG TAB PO SCH ×2 (09:27→15:14)
[2020-03-10] MEDS: MULTIVITAMINS/MINERALS THERAP 1 TAB PO SCH (09:28)
[2020-03-10] MEDS: oxyBUTYnin *DITROPAN XL* 5 MG TABCR PO SCH (09:28)
[2020-03-10] MEDS: ASPIRIN 81 MG ENTERIC TAB PO SCH (09:29)
[2020-03-10] MEDS: CALCIUM/VITAMIN D 500 MG TAB PO SCH ×2 (09:29→15:14)
[2020-03-10] MEDS: PHENobarbitaL 30 MG TAB PO SCH ×2 (09:29→15:14)
[2020-03-10] MEDS: LORATADINE 10 MG TAB PO SCH (09:30)
[2020-03-10] MEDS: MIRALAX *UNIT DOSE* 17GM PACKET PO SCH (09:30)
[2020-03-10] MEDS: CHLORHEXIDINE GLUCONATE 0.12 % 15ML UDC (PERIDEX ORAL RINSE) SSP SCH (09:30)
[2020-03-10] MEDS: LACTULOSE 20 GM/30 ML SYRUP UD PO SCH (09:31)
[2020-03-10] MEDS: SENNA 8.6 MG TAB (SENOKOT) PO SCH (09:34)
[2020-03-10] MEDS: PHENYTOIN ER 100 MG CAP PO SCH (09:38)
--- NOTE | 2020-03-10 11:21 | IPNPDOC ---
Text Note Date of Service The patient was seen on 03/10/20. NOTE Subjective: Patient today before discharge was tested positive for Covid 19. Patient has a good oxygen saturation on the room air. No cough Objective: GENERAL APPEARANCE: NAD HEENT: no scleral icterus, no JVD, EOMI CARDIOVASCULAR: S1S2 LUNGS: Diminished lung sounds bilaterally ABDOMEN: Moderately distended MUSCULOSKELETAL: no cyanosis, no swelling INTEGUMENT: no generalized pallor NEUROLOGICAL: follows commands, speech not dysarthric Assessment and plan: Mr. Mondragon is a [facility] client and is seen in the ER with a [facility] staff member. They report he's had a 1-2 day history of the listlessness and a decrease interest in food or drink. Yesterday he "had a bowel movement the size of the baby - very large." They thought maybe this would improve his appetite and energy levels but it did not. So they brought him to the ER for further evaluation. Sepsis Patient developed leukocytosis with hypotension most likely secondary to aspiration versus colitis CT abdomen and pelvis on 03/08/20 showed Obstipation/fecal impaction pattern. Minimal rectal wall thickening and enhancement raises the question of early stercoral colitis. Mild urinary bladder and gallbladder distention. Prostate enlargement. Small right pleural effusion. Abdomen/pelvis x-ray showed Questionable mild fecal stasis. No bowel obstruction or perforation IV fluid blood culture negative Continue Zosyn IV Covid 19 Patient currently asymptomatic with good oxygen saturation on room air No indication for remdesevir or steroids Constipation/obstipation/projectile vomiting Resolved Seizure disorder Chronic Keppra Severe intellectual disabilities He lives and is cared for in [facility]. VS,Fishbone, I+O VS, Fishbone, I+O Laboratory Tests 03/10/20 06:07 Vital Signs Date Time Temp Pulse Resp B/P (MAP) Pulse Ox O2 Delivery O2 Flow Rate FiO2 03/10/20 08:00 98.2 74 18 141/79 (99) 98 Room Air I&O- Last 24 Hours up to 6 AM 03/10/20 06:00 Intake Total 2970.0 ml Output Total 3350 ml Balance -380.0 ml DELMA BANKS DO Mar 10, 2020 11:21
--- NOTE | 2020-03-10 11:57 | DS.PDOC ---
Discharge Summary General Date of Admission Mar 05, 2020 at 21:37 Date of Discharge 03/10/20 Discharge Summary PROCEDURES PERFORMED DURING STAY: [None]. ADMITTING DIAGNOSES: Sepsis Covid 19 Constipation/obstipation/projectile vomiting Seizure disorder Severe intellectual disabilities DISCHARGE DIAGNOSES: Sepsis Covid 19 Constipation/obstipation/projectile vomiting Seizure disorder Severe intellectual disabilities COMPLICATIONS/CHIEF COMPLAINT: Obstipation. HISTORY OF PRESENT ILLNESS: Mr. Mondragon is a [facility] client and is seen in the ER with a [facility] staff member. They report he's had a 1-2 day history of the listlessness and a decrease interest in food or drink. Yesterday he "had a bowel movement the size of the baby - very large." They thought maybe this would improve his appetite and energy levels but it did not. So they brought him to the ER for further evaluation. HOSPITAL COURSE: During hospital stay with following issues addressed Sepsis Patient developed leukocytosis with hypotension most likely secondary to aspiration versus colitis CT abdomen and pelvis on 03/08/20 showed Obstipation/fecal impaction pattern. Minimal rectal wall thickening and enhancement raises the question of early stercoral colitis. Mild urinary bladder and gallbladder distention. Prostate enlargement. Small right pleural effusion. Abdomen/pelvis x-ray showed Questionable mild fecal stasis. No bowel obstruction or perforation Patient received IV fluid and antibiotic therapy blood culture negative Covid 19 was positive in January and he tested today positive Patient currently asymptomatic with good oxygen saturation on room air No indication for remdesevir or steroids Constipation/obstipation/projectile vomiting Resolved Seizure disorder Chronic Keppra Severe intellectual disabilities He lives and is cared for in [facility]. DISCHARGE MEDICATIONS: Please see below. ALLERGIES: Please see below. PHYSICAL EXAMINATION ON DISCHARGE: VITAL SIGNS: Please see below. GENERAL APPEARANCE: NAD HEENT: no scleral icterus, no JVD, EOMI CARDIOVASCULAR: S1S2 LUNGS: Diminished lung sounds bilaterally ABDOMEN: Moderately distended MUSCULOSKELETAL: no cyanosis, no swelling INTEGUMENT: no generalized pallor NEUROLOGICAL: follows commands, speech not dysarthric LABORATORY DATA: Please see below. PROGNOSIS: Fair ACTIVITY: [As tolerated]. DIET: Cardiac . ITEMS TO FOLLOWUP ON ON OUTPATIENT: With PCP. DISCHARGE CONDITION: [Stable]. TIME SPENT ON DISCHARGE: Greater than 40 minutes. Vital Signs/I&Os Vital Signs Date Time Temp Pulse Resp B/P (MAP) Pulse Ox O2 Delivery O2 Flow Rate FiO2 1/23/21 08:00 98.2 74 18 141/79 (99) 98 Room Air I&O- Last 24 Hours up to 6 AM 03/10/20 06:00 Intake Total 2970.0 ml Output Total 3350 ml Balance -380.0 ml Laboratory Data Labs 24H Laboratory Tests 2 03/10/20 06:07: Immature Granulocyte % (Auto) 0.1, Neutrophils (%) (Auto) 52.7, Lymphocytes (%) (Auto) 25.4, Monocytes (%) (Auto) 16.2H, Eosinophils (%) (Auto) 5.0H, Basophils (%) (Auto) 0.6, Neutrophils # (Auto) 4.4, Lymphocytes # (Auto) 2.1, Monocytes # (Auto) 1.3H, Eosinophils # (Auto) 0.4, Basophils # (Auto) 0.1, Nucleated Red Blood Cells % (auto) 0.0, Anion Gap 4L, Glomerular Filtration Rate > 60.0, Calcium Level 8.3L, Total Bilirubin 0.6, Aspartate Amino Transf (AST/SGOT) 19, Alanine Aminotransferase (ALT/SGPT) 24, Alkaline Phosphatase 98, Total Protein 6.4, Albumin 3.0L, Albumin/Globulin Ratio 0.9 03/10/20 10:12: Coronavirus (COVID-19)(PCR) POSITIVEA CBC/BMP Laboratory Tests 03/10/20 06:07 Microbiology Microbiology 03/08/20 Blood Culture - Preliminary, Resulted No growth after 24 hours . All specim... 03/08/20 Blood Culture - Preliminary, Resulted No growth after 24 hours . All specim... Discharge Medications Scheduled Amlodipine Besylate (Amlodipine Besylate) 2.5 Mg Tablet, 1 TAB PO QHS, (Reported) Aspirin (Aspirin EC) 81 Mg Tablet.dr, 81 MG PO DAILY, (Reported) Baclofen (Baclofen) 10 Mg Tablet, 1 TAB PO BID, (Reported) QAM, 1600 Calcium Carbonate/Vitamin D3 (Calcium 600-Vit D3 400 Tablet) 1 Tab Tab, 1 TAB PO BID, (Reported) QAM, 1600 Chlorhexidine Gluconate (Chlorhexidine Gluconate) 473 Ml Mouthwash, 15 ML PO BID, (Reported) SWISH FOR 30 SECONDS THEN SPIT Cholecalciferol (Vitamin D3) (Vitamin D3) 50 Mcg Capsule, 50 MCG PO DAILY, (Reported) Lansoprazole (Lansoprazole) 30 Mg Capsule.dr, 30 MG PO DAILY, (Reported) @ 1600 Levetiracetam (Keppra) 750 Mg Tab, 750 MG PO BID, (Reported) Loratadine (Claritin) 10 Mg Cap, 10 MG PO DAILY, (Reported) Montelukast Sodium (Montelukast Sodium) 10 Mg Tablet, 10 MG PO QHS, (Reported) Multivitamins (Thera M Plus Tablet) 1 Tab Tab, 1 TAB PO DAILY, (Reported) Oxybutynin Chloride (Ditropan Xl) 5 Mg Tab, 5 MG PO DAILY, (Reported) Phenobarbital (Phenobarbital) 32.4 Mg Tab, 32.4 MG PO BID Phenytoin Sodium Extended (Dilantin) 100 Mg Capsule, 100 MG PO DAILY Phenytoin Sodium Extended (Dilantin) 100 Mg Capsule, 100 MG PO QHS Polyethylene Glycol 3350 (Miralax) 119 Gm Powder, 17 GRAM PO DAILY, (Reported) dissolve in water Sennosides (Senna Lax) 8.6 Mg Tablet, 17.2 MG PO QHS, (Reported) Scheduled PRN Bisacodyl (Bisacodyl) 5 Mg Tablet.dr, 10 MG PO DAILYPRN PRN for CONSTIPATION Sennosides/Docusate Sodium (Senna Plus Tablet) 1 Each Tablet, 2 TAB PO QHSP PRN for CONSTIPATION Allergies Coded Allergies: No Known Drug Allergies (Verified Allergy, Unknown, 08/13/18) DELMA BANKS DO Mar 10, 2020 11:57
[2020-03-10] MEDS: PANTOPRAZOLE 40MG VIAL (C9113 PER 1) IV SCH (15:13)
--- NOTE | 2020-03-11 10:50 | IPN ---
PROGRESS NOTE DATE: 03/09/2020 HISTORY: Patient was seen yesterday for a history of chronic constipation with some nausea, vomiting and x-ray evidence of retained stool. He had a benign abdomen yesterday. Vital signs show that he has remained afebrile with the exception of a minimal temperature spike of 100.1 at 8:15 p.m. last evening. His pulse has ranged in the 80s to low 100s. At the time of his temperature increase last night, his pulse was 114. Blood pressure is good. Intake and output show that yesterday there was 390 mL recorded in and he had some incontinent voids and some emesis noted. He did have one bowel movement noted last evening and one again this morning. PHYSICAL EXAMINATION: The patient is lying quietly in the hospital bed. The [facility] ([facility] aide with him reports that he is much more interactive and appears comfortable today. He does acknowledge my presence, though he does say, "I don't want you." He does not appear in any discomfort currently. He reportedly has not had any further emesis today. He did have a nasogastric (NG) tube overnight and has a Franks catheter in place. Heart exam shows a regular rhythm. His lungs seem clear. The abdomen is mildly protuberant, but soft and without tenderness. LABORATORY STUDIES: Shows today a white count of 14, hemoglobin of 11, hematocrit of 32, and a platelet count of 212,000. Differential count shows 73% neutrophils, 12% lymphocytes and 14% monocytes. Chemistry profile showed a sodium of 138, potassium 3.4, chloride 101, CO2 31, BUN 16, creatinine 1.07 and a glucose of 75. IMPRESSION: Patient appears more comfortable today. He has had no further emesis. He has had some bowel function earlier today. RECOMMENDATIONS: At this point, his abdomen still appears benign. His labs are stable. His hematocrit has dropped slightly since admission. At this point, I think it would be reasonable to consider resuming a diet, unless there is some reason to believe he is at a high risk for aspiration. I will leave this to the hospitalist to determine timing for beginning and advancing his diet. Some standard bowel care should be continued given his history of chronic constipation. JEANIE
== END 2020-03-10 19:28 | disposition home health service (06) | DRG 391 ==
LOC: M ED 14:00 → EDBD 14:00 → M ED INP 21:37 → EEVIPCON 21:37 → M MSPAV 03-06 05:02 → M PCU 03-08 20:58
PROVIDERS: ADMIT Family Medicine; ATTEND Internal Medicine
DX: K59.00 Constipation, unspecified (principal); G80.0 Spastic quadriplegic cerebral palsy; A41.9 Sepsis, unspecified organism; U07.1 COVID-19; F72 Severe intellectual disabilities; N17.9 Acute kidney failure, unspecified; G40.909 Epilepsy, unspecified, not intractable, without status epilepticus; I10 Essential (primary) hypertension; K21.9 Gastro-esophageal reflux disease without esophagitis; Z79.82 Long term (current) use of aspirin; Z79.899 Other long term (current) drug therapy; Z86.73 Personal history of transient ischemic attack (TIA), and cerebral infarction without residual deficits; E55.9 Vitamin D deficiency, unspecified; M81.0 Age-related osteoporosis without current pathological fracture

== ENCOUNTER 2020-03-19 05:04 | Emergency (ER) | payer MEDICARE, MEDICAID ==
[~2020-03-19] VITALS: Ht 147.3 cm; Wt 64.5 kg
[~2020-03-19 05:04] MED LIST changes: +ASPI81TA26 PO; +BISAC5TA PO; +MONT5TAB2 PO; +PERI12LIQ PO; +SENN-52 PO
--- OUTSIDE RECORDS SUMMARY | 2020-03-19 05:08 | CCD | Continuity of Care Document ---
Author Cade Rose DPM Organization Unknown Address [address] [place] [address], [address] [place] [address] Phone [phone] Care Team Providers Care Door To Door Lead Generation Name Role Phone Ash Vences M.D.M [phone] Problems Active Problems Provider Date Pain in [...] Information Available Procedures Date Code Description Status 02/24/2020 23445 Debridement 6-10 Nails Electric Completed 11/18/2019 60509 Debridement 6-10 Nails Electric Completed Medical Devices Description No Information Available Encounters Type Date Location Provider Dx Diagnosis Office Visit 11/18/2019 10:15a [facility] Jose J Montesinos DPM M79.676 Pain in unspecified toe(s) B35.1 Tinea unguium L60.0 Ingrowing nail Assessments Date Code Description Provider 02/24/2020 B35.1 Tinea unguium Jose J Montesinos DPM 02/24/2020 L60.0 Ingrowing nail Jose J Montesinos DPM 02/24/2020 M79.676 Pain in unspecified toe(s) Josue Montesinos DPM 11/18/2019 M79.676 Pain in unspecified toe(s) Josue Montesinos DPM 11/18/2019 B35.1 Tinea unguium Jose J Montesinos DPM 11/18/2019 L60.0 Ingrowing nail Jose J Montesinos DPM Plan of Treatment Future Appointment(s):* 04/27/2020 11:00 am - Jose J Montesinos DPM at [facility] Functional Status Description No Information Available Mental Status Description No Information Available Referrals Description No Information Available
--- OUTSIDE RECORDS SUMMARY | 2020-03-19 05:08 | CCD ---
Author Author [facility] [employer] [facility] [employer] Organization [facility] [employer] Address Unknown Phone Unavailable Care Team Providers Care Cigar Making Supervisor Name Role Phone sAh Vences Unavailable PROBLEMS Type Condition ICD9-CM Code UPI28-CL Code Onset Dates Condition S tatus SNOMED Code Notes Problem Vitamin D deficiency, unspecified E55.9 Active 82810712 Problem Epilepsy, unspecified, not intractable, without status epilepticus G40.909 Active 53320682 Problem Osteoporosis M81.0 Active 93609364 Problem Constipation, chronic K59.00 Active 584821015 Problem Allergic rhinitis J30.9 Active 97812428 Problem GERD (gastroesophageal reflux disease) K21.9 A ctive 107956691 Problem CP (cerebral palsy) G80.9 Active 683403868 Problem Urge incontinence N39.41 Active 01443715 Problem Hypertension, essential I10 Active 81652838 Problem History of lacunar cerebrovascular accident (CVA) Z86.73 Active 15307147008224 Problem Essential hypertension I10 Active 29303794 Problem Oropharyngeal dysphagia R13.12 Active 94537111 Problem Prostate cancer screening Z12.5 Active 699532 002 Problem 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, unspecified trigger J3 0.2 Active 807774879 Problem Dyshidrotic eczema L30.1 Active 162129560 Problem Nonintractable epilepsy with out status epilepticus, unspecified epilepsy type G40.909 Active 435734539 Problem Seizure disorder G40.909 Active 841371578 Problem Colon cancer screening Z12.11 Active 746963150 Problem Left hemiplegia G81.94 Active 897550378 ALLERGIES No Known Allergies ENCOUNTERS from 1960 to 2020-03-14 Encounter Location Date Provider Diagnosis [facility] [address] [place] [address] Feb, 021 Ash Vences IMMUNIZATIONS Vaccine Route Administration Date [...] School Language: Question Answer Notes Languages spoken: Icelandic Christian: Question Answer Notes Christian No jew beliefs that would impact health care. Sexual [...] Notes Start Da te End Date Status MiraLax - 17 grams with 8 ounces of fluid Orally Once a day for 30 Active Phenytoin Sodium 100 MG 1 capsule Orally every morni ng and then 2 capsulesl @ HS for 30 Days Active AmLODIPine Besylate 2.5 MG 1 tablet Orally Once a day for 30 Active Senokot 8.6 MG 1 tablet Orally at bedtime for 30 day(s) Active Oxybutynin Chloride ER 5 MG 1 tablet Orally Once a day Active Vitamin D (Cholecalciferol) 50 MCG (1999 UT) 1 tab Ora lly once a day for 90 day(s) Active Peridex 0.12 % 15 ml Mouth/Throat twice a day for 15 Active Bisacodyl 5 MG 2 tablets as needed Orally Once a day n, 2020 Active Phenobarbital 32.4 MG 1 tablet Orally Three times a day MDD=3 f or 30 day(s) Active Claritin 10 MG 1 tablet Orally Once a day for 30 day(s) Active Valium 5 MG 1 tablet Orally 30 minutes b efore procedures & dental appts as needed for 1 days May, Active Fleet Enema 7-19 GM/118ML as directed Rectal PRN if no BM in 4 days for 30 Days Nov, Active Levetiracetam 750 MG 1 tablet Orally Twice a day for 30 Days Active Bisacodyl 10 MG 1 suppository as needed Rect al once daily as needed if no BM after 3 days for 5 day(s) Nov, Active Reclast 5 MG/100ML 1 Intravenous annually Active Multivitamins OTC 1 tablet Orally Once a day for 30 day(s) Active Senna S 8.6-50 MG 1 tablet in the evening as n eeded Orally twice daily for 30 days Feb, Active Milk of Magnesia 400 MG/5ML 30 ml Orally once daily as needed for no bowel movement after 2 days for 90 days Feb, Active Calcium 600 + D 600-400 MG-UNIT 1 tablet Orally Twice a day Active Montelukast Sodium 10 MG 1 tablet Orally before bedtime for 30 Active Lansoprazole 30 MG 1 capsule Orally AC dinner for 30 day(s) Active Baclofen 10 MG 1 tab Orally Twice a day Active Wheelchair _ Ifeanyi height manual wheelchai r with accessories DX: G80.9 Daily- medicaid # [id number] for 9999 days Feb, Active Aspir-81 81 MG 1 tablet Orally Once a day for 90 day(s) Active InCare Straight 14FR/20CM 1 as directed 1 for 1 days 2019 Active May Have - as directed straight cath to collect UA/UC N39.0 Nov, Active PROCEDURES No Information RESULTS No Results REASON FOR VISIT TCM/ ACO [facility] D/C 03/10; Obstipation MEDICAL (GENERAL) HISTORY Type Description Date Medical [...] c R PN/rhabdo dx 01/18/20 Surgical History focnwnatocl-Gzdhmj-qxalso 07/2013 Hospitalization History RLL PN by CXR-favor aspirati on PN given onset 7D p general anesthesia for dental procedure, seizure acitivity, new-onset HTN 10/2016 Goals Section No Information Health Concerns No Information MEDICAL EQUIPMENT No Information MENTAL STATUS No Information FUNCTIONAL STATUS No Information ASSESSMENTS Encounter Date Diagnosis Assessment Notes Treatment Notes Treatm ent Clinical Notes Feb, Other 03/12/20 1:40 pm - Discussion with Mely love at [facility] after pt discharge from hospital. Caller states pt has not had a BM since he left the hospital, last documented BM on 03/10/20 in the PM. Caller set up office appt for hosp f/u for 03/23/20. Medication reconciliation completed and medication record updated. Please see VV for concerns. Christine Moe RN PLAN OF TREATMENT Medication Medication Name Sig Start Date Stop Date AmLODIPine Besylate 2.5 MG 1 tablet Orally Once a day for 30 Fleet Enema 7-19 GM/118ML as directed Rectal PRN if no BM in 4 days for 30 Days Nov, Bisacodyl 10 MG 1 suppository as needed Rect al once daily as needed if no BM after 3 days for 5 day(s) Nov, Senna S 8.6-50 MG 1 tablet in the evening as n eeded Orally twice daily for 30 days Feb, Milk of Magnesia 400 MG/5ML 30 ml Orally once daily as needed for no bowel movement after 2 days for 90 days Feb, Next Appt Details Provider Name:Ash Vences, 2020-03-23 0 9:30:00 AM, [address] [place] [address], [phone], Provider Name:Ash Vences, 2020-04-02 0 9:30:00 AM, [address] [place], [phone], Insurance Providers Payer Name Payer Address Payer Phone Insured Name Patient Relati onship to Insured Coverage Start Date Coverage End Date MEDICAID [id number] [address] [facility] [address] [place] self MEDICARE Part A and B [address] [facility] [phone] [place] [place] self
--- OUTSIDE RECORDS SUMMARY | 2020-03-19 05:10 | CCD ---
Author Author [facility] Organization [facility] Address Unknown Phone Unavailable Support Name Relationship Address Phone [facility], [facility] Next Of Kin [facility] JAIL [address] [place], [place] [phone] RADHA ALMARAZ Next Of Kin [place] [address] [facility] Next Of Kin [address] [place] [phone] RESIDENT, [facility] Next Of Kin [address] [place], [place] [phone] JAI OSPINA Next Of Kin [address] [facility] [address] FELICITAS STANLEY Next Of Kin [address] [place] [address] TOSHA EDOUARD Next Of Kin [address] [place] [address] BIRGIT TREJO Next Of Kin [address] [place] [address] NKECHI TREJO(NURSE) Next Of Kin [address] [place] [address] NATHANAEL PLAZA Next Of Kin [address] [place] [address] ANTOINETTE CORONEL Next Of Kin [address] [place] [address] UE Next Of Kin Unknown Unavailable DISABLED Next Of Kin Unknown AJAY NUNEZ Next Of Kin [address] [place] [address] RENAN POLLACK Next Of Kin [address] [place] [address] Felicitas Stanley ECON [address] [place] [address] Unavailable BIRGIT TREJO ECON [address] [place] [address] Care Team Providers Care Vice President Of Human Resources Name Role Phone Rory Reilly Unavailable Unavailable [...] Unavailable RuSteve jon MD Unavailable Unavailable RuSteve MD Unavailable Unavailable RuSteve jon MD Unavailable [...] is protected by Article 27-F of the [facility] Public Health law. If you continue you may have access to information: Regarding HIV / AIDS; Provided by facilities licensed or operated by the [facility] Office of Mental Health; or Provided by the [facility] Office for People With Developmental Disabilities. If such information is present, then the following [facility] mandated warning applies: This information has been [...] law may result in a fine or mcfp sentence or both. A general authorization for the release of medical or other information is NOT sufficient authorization for further disc losure. Allergies and Adverse Reactions Type Description Substance Reaction Status Data Source(s ) No Known Allergies No Known Allergies [facility] Family History Family Member Name Family Member Gender Family Member Status Date o f Status Description Data Source(s) Unknown Unknown Problem [facility] Encounters Encounter Providers Location Date Indications Data Source(s ) [place] [address] [facility] [address] 03/12/2020 12:00:00 AM EST eCW1 ([facility]) [place] [address] [facility] [address] 02/21/2020 12:00:00 AM EST eCW1 ([facility]) [place] [address] [facility] [address] 02/01/2020 12:00:00 AM EST eCW1 ([facility]) [place] [address] [facility] [address] 02/01/2020 12:00:00 AM EST eCW1 ([facility]) [place] [address] [facility] [place] [address] 01/26/2020 12:00:00 AM EST eCW1 ([facility]) TeleMedicine Est. Pt. Level 5 [address] [place] [address] 01/20/2020 12:00:00 AM EST eCW1 ([facility]) Unknown [address] [facility] [address] 01/20/2020 12:00:00 AM EST eCW1 ([facility]) [place] [address] [facility] [address] 01/19/2020 12:00:00 AM EST eCW1 ([facility]) [place] [address] [facility] [address] 01/18/2020 12:00:00 AM EST eCW1 ([facility]) [place] [address] [facility] [place] [address] 01/17/2020 12:00:00 AM EST eCW1 ([facility]) [place] [address] [facility] [place] [address] 01/03/2020 12:00:00 AM EST eCW1 ([facility]) [place] [address] [facility] [place] [address] 12/28/2019 12:00:00 AM EST eCW1 ([facility]) Unknown [address] [facility] [address] 12/26/2019 12:00:00 AM EST eCW1 ([facility]) Unknown [address] [facility] [address] 12/23/2019 12:00:00 AM EST eCW1 ([facility]) Unknown [address] [facility] [address] 12/22/2019 12:00:00 AM EST eCW1 ([facility]) Unknown [address] [facility] [place] [address] 12/19/2019 12:00:00 AM EST eCW1 ([facility]) Unknown [address] [facility] [address] 12/15/2019 12:00:00 AM EDT eCW1 ([facility]) Unknown [address] [facility] [place] [address] 12/14/2019 12:00:00 AM EDT eCW1 ([facility]) [place] [address] [facility] [place] [address] 12/14/2019 12:00:00 AM EDT eCW1 ([facility]) [place] [address] [facility] [place] [address] 12/12/2019 12:00:00 AM EDT eCW1 ([facility]) Unknown [address] [facility] [place] [address] 12/07/2019 12:00:00 AM EDT eCW1 ([facility]) Outpatient Attender: Lakisha Jackson [place] Main office - [facility] 12/06/2019 10:00:00 AM EDT MEDENT ([facility] GHANSHYAM marquez) Unknown [address] [facility] Y [address] 12/06/2019 12:00:00 AM EDT eCW1 ([facility]) Outpatient [address] [facility] Y [address] 12/02/2019 12:00:00 AM EDT eCW1 ([facility]) Unknown [address] [facility] [address] 11/30/2019 12:00:00 AM EDT eCW1 ([facility]) Unknown [address] [facility] [address] 11/29/2019 12:00:00 AM EDT eCW1 ([facility]) Unknown [address] [facility] [address] 11/25/2019 12:00:00 AM EDT eCW1 ([facility]) Unknown [address] [facility], [place] [address] 11/24/2019 12:00:00 AM EDT eCW1 ([facility]) Outpatient Attender: CHAVO GRIFFITH [facility] Office 03/2019 10:15:00 AM EDT MEDENT ([facility] [place] [address] [facility], [place] [address] 10/31/2019 12:00:00 AM EDT eCW1 ([facility]) Inpatient Attender: Rory Kam er: REESE LANDERS MDConsultant: Ash Vences MD 10/10/2019 10:35:00 AM EDT - 10/14/2019 05:35:00 PM EDT [facility] Patient discharged. Outpatient 10/09/2019 07:45:00 PM EDT [facility] Outpatient Attender: Rory GUAN 0 07:15:00 PM EDT - 10/10/2019 10:35:00 AM EDT [facility] Outpatient Attender: Lakisha GUAN [facility] office [facility] 09/01/2019 10:45:00 AM EDT MEDENT ([facility] GHANSHYAM Clarke) Unknown [address] [facility], [place] [address] 08/23/2019 12:00:00 AM EDT eCW1 [facility]) Outpatient [address] [facility] [address] 08/10/2019 12:00:00 AM EDT eCW1 ([facility]) Unknown [address] [facility] [address] 08/04/2019 12:00:00 AM EDT eCW1 ([facility]) Unknown [address] [facility] [address] 08/03/2019 12:00:00 AM EDT eCW1 ([facility]) Unknown [address] [facility] [address] 07/28/2019 12:00:00 AM EDT eCW1 ([facility]) Unknown [address] [facility] [address] 07/28/2019 12:00:00 AM EDT eCW1 ([facility]) Unknown [address] [facility] [address] 07/27/2019 12:00:00 AM EDT eCW1 ([facility]) Outpatient [address] [facility] [address] 07/26/2019 12:00:00 AM EDT eCW1 ([facility]) Unknown [address] [facility] [address] 07/26/2019 12:00:00 AM EDT eCW1 ([facility]) [facility] [place] [address] [facility] [address] 07/13/2019 12:00:00 AM EDT eCW1 ([facility]) [facility] [place] [address] [facility] [address] 07/08/2019 12:00:00 AM EDT eCW1 ([facility]) [facility] [place] [address] [facility] [address] 07/07/2019 12:00:00 AM EDT eCW1 ([facility]) [facility] [place] [address] [facility] [address] 07/06/2019 12:00:00 AM EDT eCW1 ([facility]) [address] [address] 07/05/2019 12:00:00 AM EDT eCW1 ([facility]) [address] [address] 07/05/2019 12:00:00 AM EDT eCW1 ([facility]) [address] [address] 07/04/2019 12:00:00 AM EDT eCW1 ([facility]) [address] [place] [address] 07/01/2019 12:00:00 AM EDT eCW1 ([facility]) [address] [place] [address] 06/30/2019 12:00:00 AM EDT eCW1 ([facility]) [address] [address] 06/20/2019 12:00:00 AM EDT eCW1 ([facility]) Outpatient Attender: Lakisha GUAN [facility] 05/26/2019 09:15:00 AM EDT MEDENT ([facility] GHANSHYAM marquez) [address] [place] [address] 05/12/2019 12:00:00 AM EDT eCW1 ([facility]) [address] [address] 04/21/2019 12:00:00 AM EST eCW1 ([facility]) [address] [place] [address] 04/06/2019 12:00:00 AM EST eCW1 ([facility]) [address] [place] [address] 03/18/2019 12:00:00 AM EST [facility]) [address] [place] [address] 03/17/2019 12:00:00 AM EST [facility]CW1 [facility]) Outpatient Attender: AJ Orellana [facility] 03/11/2019 11:15:00 AM EST MEDENT ([facility]) [address] [place] [address] 03/11/2019 12:00:00 AM EST eCW1 ([facility]) [address] [place] [address] 03/10/2019 12:00:00 AM EST [facility]CW1 [facility]) Outpatient Attender: Lakisha GUAN [facility] 02/24/2019 08:15:00 AM EST MEDENT ([facility] ) [address], [place] [address] 02/23/2019 12:00:00 AM EST eCW1 ([facility]) [address] [place] [address] 01/31/2019 12:00:00 AM EST eCW1 ([facility]) [address] [place] [address] 01/28/2019 12:00:00 AM EST [facility]CW1 ([facility]) [address] [address] 01/28/2019 12:00:00 AM EST eCW1 ([facility]) [address] [place] [address] 01/19/2019 12:00:00 AM EST eCW1 ([facility]) Medications Medication Brand Name Start Date Product Form Dose Route Admi nistrative Instructions Pharmacy Instructions Status Indications Reaction Description Data Source(s) Docusate Sodium 50 MG / sennosides, [facility] 8.6 MG Oral Ta blet Senna S 8.6-50 MG Senna S 8.6-50 MG 03/13/2020 12:00:00 AM EST 1.0 {tablet_in_the_evening_as_needed} active Senna S 8.6-50 MG [facility] Magnesium Hydroxide 80 MG/ML Oral Suspension Milk of M agnesia 400 MG/5ML Milk of Magnesia 400 MG/5ML 03/13/2020 12:00:00 AM EST 30.0 {ml} active Milk of Magnesia 400 MG/5ML [facility]CW[facility]) Bisacodyl 5 MG UNK 03/10/2020 12:00:00 AM EST 2.0 {tablets_a s_needed} active Bisacodyl 5 MG [facility]) montelukast 10 MG Oral Tablet Montelukast Sodium 10 MG Trell lukast Sodium 10 MG 12/16/2019 12:00:00 AM EDT 1.0 {tablet} active Montelukast Sodium 10 MG [facility]CW1 ([facility]) montelukast 10 MG Oral Tablet Montelukast Sodium 10 MG Trell lukast Sodium 10 MG 12/16/2019 12:00:00 AM EDT 1.0 {tablet} active Montelukast Sodium 10 MG [facility]CW1 [facility]) montelukast 10 MG Oral Tablet Montelukast Sodium 10 MG Trell lukast Sodium 10 MG 12/16/2019 12:00:00 AM EDT 1.0 {tablet} active Montelukast Sodium 10 MG [facility]CW1 ([facility]) montelukast 10 MG Oral Tablet Montelukast Sodium 10 MG Trell lukast Sodium 10 MG 12/16/2019 12:00:00 AM EDT 1.0 {tablet} active Montelukast Sodium 10 MG [facility]CW1 [facility]) montelukast 10 MG Oral Tablet Montelukast Sodium 10 MG Trell lukast Sodium 10 MG 12/16/2019 12:00:00 AM EDT 1.0 {tablet} active Montelukast Sodium 10 MG eCW1 ([facility]) montelukast 10 MG Oral Tablet Montelukast Sodium 10 MG Trell lukast Sodium 10 MG 12/16/2019 12:00:00 AM EDT 1.0 {tablet} active Montelukast Sodium 10 MG eCW1 ([facility]) montelukast 10 MG Oral Tablet Montelukast Sodium 10 MG Trell lukast Sodium 10 MG 12/16/2019 12:00:00 AM EDT 1.0 {tablet} active Montelukast Sodium 10 MG eCW1 ([facility]) montelukast 10 MG Oral Tablet Montelukast Sodium 10 MG Trell lukast Sodium 10 MG 12/16/2019 12:00:00 AM EDT 1.0 {tablet} active Montelukast Sodium 10 MG eCW1 ([facility]) montelukast 10 MG Oral Tablet Montelukast Sodium 10 MG Trell lukast Sodium 10 MG 12/16/2019 12:00:00 AM EDT 1.0 {tablet} active Montelukast Sodium 10 MG eCW1 ([facility]) montelukast 10 MG Oral Tablet Montelukast Sodium 10 MG Trell lukast Sodium 10 MG 12/16/2019 12:00:00 AM EDT 1.0 {tablet} active Montelukast Sodium 10 MG eCW1 ([facility]) montelukast 10 MG Oral Tablet Montelukast Sodium 10 MG Trell lukast Sodium 10 MG 12/16/2019 12:00:00 AM EDT 1.0 {tablet} active Montelukast Sodium 10 MG eCW1 ([facility]) montelukast 10 MG Oral Tablet Montelukast Sodium 10 MG Trell lukast Sodium 10 MG 12/16/2019 12:00:00 AM EDT 1.0 {tablet} active Montelukast Sodium 10 MG eCW1 ([facility]) montelukast 10 MG Oral Tablet Montelukast Sodium 10 MG Trell lukast Sodium 10 MG 12/16/2019 12:00:00 AM EDT 1.0 {tablet} active Montelukast Sodium 10 MG eCW1 ([facility]) montelukast 10 MG Oral Tablet Montelukast Sodium 10 MG Trell lukast Sodium 10 MG 12/16/2019 12:00:00 AM EDT 1.0 {tablet} active Montelukast Sodium 10 MG eCW1 ([facility]) montelukast 10 MG Oral Tablet Montelukast Sodium 10 MG Trell lukast Sodium 10 MG 12/16/2019 12:00:00 AM EDT 1.0 {tablet} active Montelukast Sodium 10 MG eCW1 ([facility]) montelukast 10 MG Oral Tablet Montelukast Sodium 10 MG Trell lukast Sodium 10 MG 12/16/2019 12:00:00 AM EDT 1.0 {tablet} active Montelukast Sodium 10 MG eCW1 ([facility]) montelukast 10 MG Oral Tablet Montelukast Sodium 10 MG Trell lukast Sodium 10 MG 12/16/2019 12:00:00 AM EDT 1.0 {tablet} active Montelukast Sodium 10 MG eCW1 ([facility]) zoledronic acid 0.05 MG/ML Injectable Solution [Reclas t] Reclast 5 MG/100ML Reclast 5 MG/100ML 12/06/2019 12:00:00 AM EDT active Reclast 5 MG/100ML eCW1 ([facility]) zoledronic acid 0.05 MG/ML Injectable Solution [Reclas t] Reclast 5 MG/100ML Reclast 5 MG/100ML 12/06/2019 12:00:00 AM EDT active Reclast 5 MG/100ML eCW1 ([facility]) zoledronic acid 0.05 MG/ML Injectable Solution [Reclas t] Reclast 5 MG/100ML Reclast 5 MG/100ML 12/06/2019 12:00:00 AM EDT active Reclast 5 MG/100ML eCW1 ([facility]) zoledronic acid 0.05 MG/ML Injectable Solution [Reclas t] Reclast 5 MG/100ML Reclast 5 MG/100ML 12/06/2019 12:00:00 AM EDT active Reclast 5 MG/100ML eCW1 ([facility]) zoledronic acid 0.05 MG/ML Injectable Solution [Reclas t] Reclast 5 MG/100ML Reclast 5 MG/100ML 12/06/2019 12:00:00 AM EDT active Reclast 5 MG/100ML eCW1 ([facility]) zoledronic acid 0.05 MG/ML Injectable Solution [Reclas t] Reclast 5 MG/100ML Reclast 5 MG/100ML 12/06/2019 12:00:00 AM EDT active Reclast 5 MG/100ML eCW1 ([facility]) zoledronic acid 0.05 MG/ML Injectable Solution [Reclas t] Reclast 5 MG/100ML Reclast 5 MG/100ML 12/06/2019 12:00:00 AM EDT active Reclast 5 MG/100ML eCW1 ([facility]) zoledronic acid 0.05 MG/ML Injectable Solution [Reclas t] Reclast 5 MG/100ML Reclast 5 MG/100ML 12/06/2019 12:00:00 AM EDT active Reclast 5 MG/100ML eCW1 ([facility]) zoledronic acid 0.05 MG/ML Injectable Solution [Reclas t] Reclast 5 MG/100ML Reclast 5 MG/100ML 12/06/2019 12:00:00 AM EDT active Reclast 5 MG/100ML eCW1 ([facility]) zoledronic acid 0.05 MG/ML Injectable Solution [Reclas t] Reclast 5 MG/100ML Reclast 5 MG/100ML 12/06/2019 12:00:00 AM EDT active Reclast 5 MG/100ML eCW1 ([facility]) zoledronic acid 0.05 MG/ML Injectable Solution [Reclas t] Reclast 5 MG/100ML Reclast 5 MG/100ML 12/06/2019 12:00:00 AM EDT active Reclast 5 MG/100ML eCW1 ([facility]) zoledronic acid 0.05 MG/ML Injectable Solution [Reclas t] Reclast 5 MG/100ML Reclast 5 MG/100ML 12/06/2019 12:00:00 AM EDT active Reclast 5 MG/100ML eCW1 ([facility]) zoledronic acid 0.05 MG/ML Injectable Solution [Reclas t] Reclast 5 MG/100ML Reclast 5 MG/100ML 12/06/2019 12:00:00 AM EDT active Reclast 5 MG/100ML eCW1 ([facility]) zoledronic acid 0.05 MG/ML Injectable Solution [Reclas t] Reclast 5 MG/100ML Reclast 5 MG/100ML 12/06/2019 12:00:00 AM EDT active Reclast 5 MG/100ML eCW1 [facility]) Flonase Allergy Relief 50 MCG/ACT Flonase Allergy Relief 50 MCG/ACT 12/02/2019 12:00:00 AM EDT 1.0 {spray_in_each_nostril} acti ve Flonase Allergy Relief 50 MCG/ACT eCW1 ([facility]) Flonase Allergy Relief 50 MCG/ACT Flonase Allergy Relief 50 MCG/ACT 12/02/2019 12:00:00 AM EDT 1.0 {spray_in_each_nostril} acti ve Flonase Allergy Relief 50 MCG/ACT eCW1 ([facility]) Flonase Allergy Relief 50 MCG/ACT Flonase Allergy Relief 50 MCG/ACT 12/02/2019 12:00:00 AM EDT 1.0 {spray_in_each_nostril} acti ve Flonase Allergy Relief 50 MCG/ACT eCW1 ([facility]) Flonase Allergy Relief 50 MCG/ACT Flonase Allergy Relief 50 MCG/ACT 12/02/2019 12:00:00 AM EDT 1.0 {spray_in_each_nostril} acti ve Flonase Allergy Relief 50 MCG/ACT eCW1 ([facility]) Flonase Allergy Relief 50 MCG/ACT Flonase Allergy Relief 50 MCG/ACT 12/02/2019 12:00:00 AM EDT 1.0 {spray_in_each_nostril} acti ve Flonase Allergy Relief 50 MCG/ACT eCW1 ([facility]) Flonase Allergy Relief 50 MCG/ACT Flonase Allergy Relief 50 MCG/ACT 12/02/2019 12:00:00 AM EDT 1.0 {spray_in_each_nostril} acti ve Flonase Allergy Relief 50 MCG/ACT eCW1 ([facility]) Flonase Allergy Relief 50 MCG/ACT Flonase Allergy Relief 50 MCG/ACT 12/02/2019 12:00:00 AM EDT 1.0 {spray_in_each_nostril} acti ve Flonase Allergy Relief 50 MCG/ACT eCW1 ([facility]) Flonase Allergy Relief 50 MCG/ACT Flonase Allergy Relief 50 MCG/ACT 12/02/2019 12:00:00 AM EDT 1.0 {spray_in_each_nostril} acti ve Flonase Allergy Relief 50 MCG/ACT eCW1 ([facility]) Flonase Allergy Relief 50 MCG/ACT Flonase Allergy Relief 50 MCG/ACT 12/02/2019 12:00:00 AM EDT 1.0 {spray_in_each_nostril} acti ve Flonase Allergy Relief 50 MCG/ACT eCW1 ([facility]) Flonase Allergy Relief 50 MCG/ACT Flonase Allergy Relief 50 MCG/ACT 12/02/2019 12:00:00 AM EDT 1.0 {spray_in_each_nostril} acti ve Flonase Allergy Relief 50 MCG/ACT eCW1 ([facility]) Flonase Allergy Relief 50 MCG/ACT Flonase Allergy Relief 50 MCG/ACT 12/02/2019 12:00:00 AM EDT 1.0 {spray_in_each_nostril} acti ve Flonase Allergy Relief 50 MCG/ACT eCW1 ([facility]) Flonase Allergy Relief 50 MCG/ACT Flonase Allergy Relief 50 MCG/ACT 12/02/2019 12:00:00 AM EDT 1.0 {spray_in_each_nostril} acti ve Flonase Allergy Relief 50 MCG/ACT eCW1 ([facility]) Flonase Allergy Relief 50 MCG/ACT Flonase Allergy Relief 50 MCG/ACT 12/02/2019 12:00:00 AM EDT 1.0 {spray_in_each_nostril} acti ve Flonase Allergy Relief 50 MCG/ACT eCW1 ([facility]) Flonase Allergy Relief 50 MCG/ACT Flonase Allergy Relief 50 MCG/ACT 12/02/2019 12:00:00 AM EDT 1.0 {spray_in_each_nostril} acti ve Flonase Allergy Relief 50 MCG/ACT eCW1 ([facility]) Flonase Allergy Relief 50 MCG/ACT Flonase Allergy Relief 50 MCG/ACT 12/02/2019 12:00:00 AM EDT 1.0 {spray_in_each_nostril} acti ve Flonase Allergy Relief 50 MCG/ACT eCW1 ([facility]) Flonase Allergy Relief 50 MCG/ACT Flonase Allergy Relief 50 MCG/ACT 12/02/2019 12:00:00 AM EDT 1.0 {spray_in_each_nostril} acti ve Flonase Allergy Relief 50 MCG/ACT eCW1 ([facility]) Flonase Allergy Relief 50 MCG/ACT Flonase Allergy Relief 50 MCG/ACT 12/02/2019 12:00:00 AM EDT 1.0 {spray_in_each_nostril} acti ve Flonase Allergy Relief 50 MCG/ACT eCW1 ([facility]) Flonase Allergy Relief 50 MCG/ACT Flonase Allergy Relief 50 MCG/ACT 12/02/2019 12:00:00 AM EDT 1.0 {spray_in_each_nostril} acti ve Flonase Allergy Relief 50 MCG/ACT eCW1 ([facility]) Flonase Allergy Relief 50 MCG/ACT Flonase Allergy Relief 50 MCG/ACT 12/02/2019 12:00:00 AM EDT 1.0 {spray_in_each_nostril} acti ve Flonase Allergy Relief 50 MCG/ACT eCW1 ([facility]) Flonase Allergy Relief 50 MCG/ACT Flonase Allergy Relief 50 MCG/ACT 12/02/2019 12:00:00 AM EDT 1.0 {spray_in_each_nostril} acti ve Flonase Allergy Relief 50 MCG/ACT eCW1 ([facility]) Flonase Allergy Relief 50 MCG/ACT Flonase Allergy Relief 50 MCG/ACT 12/02/2019 12:00:00 AM EDT 1.0 {spray_in_each_nostril} acti ve Flonase Allergy Relief 50 MCG/ACT eCW1 ([facility]) Flonase Allergy Relief 50 MCG/ACT Flonase Allergy Relief 50 MCG/ACT 12/02/2019 12:00:00 AM EDT 1.0 {spray_in_each_nostril} acti ve Flonase Allergy Relief 50 MCG/ACT [facility]CW1 [facility]) May Have - UNK 11/25/2019 12:00:00 AM EDT active May Have - eCW1 ([facility]) [employer] 14FR/20CM 1 UNK 11/25/2019 12:00:00 AM EDT active [employer] 14FR/20CM 1 eCW1 [facility]) May Have - UNK 11/25/2019 12:00:00 AM EDT active May Have - eCW1 [facility]) [employer] [employer] 14FR/20CM 1 UNK 11/25/2019 12:00:00 AM EDT active [employer] [employer] 14FR/20CM 1 eCW1 [facility]) Sodium Phosphate, Dibasic 59.3 MG/ML / S odium Phosphate, Monobasic 161 MG/ML Enema Fleet Enema 7-19 GM/118ML Fleet Enema 7-19 GM/118ML 11/25/2019 12:00:00 AM EDT active Fleet Enema 7-19 GM/118ML eCW1 ([facility]) Sodium Phosphate, Dibasic 59.3 MG/ML / S odium Phosphate, Monobasic 161 MG/ML Enema Fleet Enema 7-19 GM/118ML Fleet Enema 7-19 GM/118ML 11/25/2019 12:00:00 AM EDT active Fleet Enema 7-19 GM/118ML eCW1 [facility]) Bisacodyl 10 MG Rectal Suppository Bisacodyl 10 MG 11/25/2019 12:00 :00 AM EDT 1.0 {suppository_as_needed} active Bisa codyl 10 MG eCW1 ([facility]) May Have - UNK 11/25/2019 12:00:00 AM EDT active May Have - eCW1 ([facility]) Sodium Phosphate, Dibasic 59.3 MG/ML / S odium Phosphate, Monobasic 161 MG/ML Enema Fleet Enema 7-19 GM/118ML Fleet Enema 7-19 GM/118ML 11/25/2019 12:00:00 AM EDT active Fleet Enema 7-19 GM/118ML eCW1 ([facility]) Bisacodyl 10 MG Rectal Suppository Bisacodyl 10 MG 11/25/2019 12:00 :00 AM EDT 1.0 {suppository_as_needed} active Bisa codyl 10 MG eCW1 ([facility]) Sodium Phosphate, Dibasic 59.3 MG/ML / S odium Phosphate, Monobasic 161 MG/ML Enema Fleet Enema 7-19 GM/118ML Fleet Enema 7-19 GM/118ML 11/25/2019 12:00:00 AM EDT active Fleet Enema 7-19 GM/118ML eCW1 ([facility]) May Have - UNK 11/25/2019 12:00:00 AM EDT active May Have - eCW1 ([facility]) [facility] 14FR/20CM 1 UNK 11/25/2019 12:00:00 AM EDT active [facility] 14FR/20CM 1 eCW1 ([facility]) Sodium Phosphate, Dibasic 59.3 MG/ML / S odium Phosphate, Monobasic 161 MG/ML Enema Fleet Enema 7-19 GM/118ML Fleet Enema 7-19 GM/118ML 11/25/2019 12:00:00 AM EDT active Fleet Enema 7-19 GM/118ML eCW1 ([facility]) Sodium Phosphate, Dibasic 59.3 MG/ML / S odium Phosphate, Monobasic 161 MG/ML Enema Fleet Enema 7-19 GM/118ML Fleet Enema 7-19 GM/118ML 11/25/2019 12:00:00 AM EDT active Fleet Enema 7-19 GM/118ML [facility] May Have - UNK 11/25/2019 12:00:00 AM EDT active May Have - eCW1 ([facility]) Bisacodyl 10 MG Rectal Suppository Bisacodyl 10 MG 11/25/2019 12:00 :00 AM EDT 1.0 {suppository_as_needed} active Bisa codyl 10 MG eCW1 ([facility]) Sodium Phosphate, Dibasic 59.3 MG/ML / S odium Phosphate, Monobasic 161 MG/ML Enema Fleet Enema 7-19 GM/118ML Fleet Enema 7-19 GM/118ML 11/25/2019 12:00:00 AM EDT active Fleet Enema 7-19 GM/118ML [facility]CW1 [facility]) [facility] 14FR/20CM 1 UNK 11/25/2019 12:00:00 AM EDT active [facility] 14FR/20CM 1 eCW1 ([facility]) Sodium Phosphate, Dibasic 59.3 MG/ML / S odium Phosphate, Monobasic 161 MG/ML Enema Fleet Enema 7-19 GM/118ML Fleet Enema 7-19 GM/118ML 11/25/2019 12:00:00 AM EDT active Fleet Enema 7-19 GM/118ML eCW1 [facility]) Bisacodyl 10 MG Rectal Suppository Bisacodyl 10 MG 11/25/2019 12:00 :00 AM EDT 1.0 {suppository_as_needed} active Bisa codyl 10 MG eCW1 ([facility]) [facility] 14FR/20CM 1 UNK 11/25/2019 12:00:00 AM EDT active [facility] 14FR/20CM 1 eCW1 ([facility]) Sodium Phosphate, Dibasic 59.3 MG/ML / S odium Phosphate, Monobasic 161 MG/ML Enema Fleet Enema 7-19 GM/118ML Fleet Enema 7-19 GM/118ML 11/25/2019 12:00:00 AM EDT active Fleet Enema 7-19 GM/118ML eCW1 [facility]) May Have - UNK 11/25/2019 12:00:00 AM EDT active May Have - eCW1 ([facility]) [facility] 14FR/20CM 1 UNK 11/25/2019 12:00:00 AM EDT active [facility] 14FR/20CM 1 eCW1 ([facility]) Sodium Phosphate, Dibasic 59.3 MG/ML / S odium Phosphate, Monobasic 161 MG/ML Enema Fleet Enema 7-19 GM/118ML Fleet Enema 7-19 GM/118ML 11/25/2019 12:00:00 AM EDT active Fleet Enema 7-19 GM/118ML eCW1 ([facility]) Bisacodyl 10 MG Rectal Suppository Bisacodyl 10 MG 11/25/2019 12:00 :00 AM EDT 1.0 {suppository_as_needed} active Bisa codyl 10 MG eCW1 ([facility]) May Have - UNK 11/25/2019 12:00:00 AM EDT active May Have - eCW1 ([facility]) May Have - UNK 11/25/2019 12:00:00 AM EDT active May Have - eCW1 ([facility]) Bisacodyl 10 MG Rectal Suppository Bisacodyl 10 MG 11/25/2019 12:00 :00 AM EDT 1.0 {suppository_as_needed} active Bisa codyl 10 MG eCW1 ([facility]) [facility] 14FR/20CM 1 UNK 11/25/2019 12:00:00 AM EDT active [facility] 14FR/20CM 1 eCW1 ([facility]) Bisacodyl 10 MG Rectal Suppository Bisacodyl 10 MG 11/25/2019 12:00 :00 AM EDT 1.0 {suppository_as_needed} active Bisa codyl 10 MG eCW1 ([facility]) Sodium Phosphate, Dibasic 59.3 MG/ML / S odium Phosphate, Monobasic 161 MG/ML Enema Fleet Enema 7-19 GM/118ML Fleet Enema 7-19 GM/118ML 11/25/2019 12:00:00 AM EDT active Fleet Enema 7-19 GM/118ML eCW1 ([facility]) Sodium Phosphate, Dibasic 59.3 MG/ML / S odium Phosphate, Monobasic 161 MG/ML Enema Fleet Enema 7-19 GM/118ML Fleet Enema 7-19 GM/118ML 11/25/2019 12:00:00 AM EDT active Fleet Enema 7-19 GM/118ML eCW1 ([facility]) Bisacodyl 10 MG Rectal Suppository Bisacodyl 10 MG 11/25/2019 12:00 :00 AM EDT 1.0 {suppository_as_needed} active Bisa codyl 10 MG eCW1 ([facility]) Bisacodyl 10 MG Rectal Suppository Bisacodyl 10 MG 11/25/2019 12:00 :00 AM EDT 1.0 {suppository_as_needed} active Bisa codyl 10 MG eCW1 ([facility]) Bisacodyl 10 MG Rectal Suppository Bisacodyl 10 MG 11/25/2019 12:00 :00 AM EDT 1.0 {suppository_as_needed} active Bisa codyl 10 MG eCW1 [facility]) [facility] 14FR/20CM 1 UNK 11/25/2019 12:00:00 AM EDT active [facility] 14FR/20CM 1 eCW1 ([facility]) May Have - UNK 11/25/2019 12:00:00 AM EDT active May Have - eCW1 ([facility]) May Have - UNK 11/25/2019 12:00:00 AM EDT active May Have - eCW1 ([facility]) [facility] 14FR/20CM 1 UNK 11/25/2019 12:00:00 AM EDT active [facility] 14FR/20CM 1 eCW1 ([facility]) May Have - UNK 11/25/2019 12:00:00 AM EDT active May Have - eCW1 ([facility]) [facility] 14FR/20CM 1 UNK 11/25/2019 12:00:00 AM EDT active [facility] 14FR/20CM 1 eCW1 [facility]) Bisacodyl 10 MG Rectal Suppository Bisacodyl 10 MG 11/25/2019 12:00 :00 AM EDT 1.0 {suppository_as_needed} active Bisa codyl 10 MG eCW1 [facility]) [facility] 14FR/20CM 1 UNK 11/25/2019 12:00:00 AM EDT active [facility] 14FR/20CM 1 eCW1 ([facility]) Sodium Phosphate, Dibasic 59.3 MG/ML / S odium Phosphate, Monobasic 161 MG/ML Enema Fleet Enema 7-19 GM/118ML Fleet Enema 7-19 GM/118ML 11/25/2019 12:00:00 AM EDT active Fleet Enema 7-19 GM/118ML eCW1 [facility]) Bisacodyl 10 MG Rectal Suppository Bisacodyl 10 MG 11/25/2019 12:00 :00 AM EDT 1.0 {suppository_as_needed} active Bisa codyl 10 MG eCW1 ([facility]) May Have - UNK 11/25/2019 12:00:00 AM EDT active May Have - eCW1 ([facility]) May Have - UNK 11/25/2019 12:00:00 AM EDT active May Have - eCW1 ([facility]) Sodium Phosphate, Dibasic 59.3 MG/ML / S odium Phosphate, Monobasic 161 MG/ML Enema Fleet Enema 7-19 GM/118ML Fleet Enema 7-19 GM/118ML 11/25/2019 12:00:00 AM EDT active Fleet Enema 7-19 GM/118ML eCW1 ([facility]) May Have - UNK 11/25/2019 12:00:00 AM EDT active May Have - eCW1 ([facility]) May Have - UNK 11/25/2019 12:00:00 AM EDT active May Have - eCW1 ([facility]) [facility] 14FR/20CM 1 UNK 11/25/2019 12:00:00 AM EDT active [facility] 14FR/20CM 1 eCW1 ([facility]) Sodium Phosphate, Dibasic 59.3 MG/ML / S odium Phosphate, Monobasic 161 MG/ML Enema Fleet Enema 7-19 GM/118ML Fleet Enema 7-19 GM/118ML 11/25/2019 12:00:00 AM EDT active Fleet Enema 7-19 GM/118ML eCW1 ([facility]) May Have - UNK 11/25/2019 12:00:00 AM EDT active June Have - eCW1 ([facility]) Sodium Phosphate, Dibasic 59.3 MG/ML / S odium Phosphate, Monobasic 161 MG/ML Enema Fleet Enema 7-19 GM/118ML Fleet Enema 7-19 GM/118ML 11/25/2019 12:00:00 AM EDT active Fleet Enema 7-19 GM/118ML eCW1 [facility]) Bisacodyl 10 MG Rectal Suppository Bisacodyl 10 MG 11/25/2019 12:00 :00 AM EDT 1.0 {suppository_as_needed} active Bisa codyl 10 MG eCW1 ([facility]) Bisacodyl 10 MG Rectal Suppository Bisacodyl 10 MG 11/25/2019 12:00 :00 AM EDT 1.0 {suppository_as_needed} active Bisa codyl 10 MG eCW1 [facility]) [facility] 14FR/20CM 1 UNK 11/25/2019 12:00:00 AM EDT active [facility] 14FR/20CM 1 eCW1 ([facility]) Sodium Phosphate, Dibasic 59.3 MG/ML / S odium Phosphate, Monobasic 161 MG/ML Enema Fleet Enema 7-19 GM/118ML Fleet Enema 7-19 GM/118ML 11/25/2019 12:00:00 AM EDT active Fleet Enema 7-19 GM/118ML eCW1 ([facility]) Bisacodyl 10 MG Rectal Suppository Bisacodyl 10 MG 11/25/2019 12:00 :00 AM EDT 1.0 {suppository_as_needed} active Bisa codyl 10 MG eCW1 ([facility]) Bisacodyl 10 MG Rectal Suppository Bisacodyl 10 MG 11/25/2019 12:00 :00 AM EDT 1.0 {suppository_as_needed} active Bisa codyl 10 MG eCW1 ([facility]) May Have - UNK 11/25/2019 12:00:00 AM EDT active May Have - eCW1 ([facility]) Sodium Phosphate, Dibasic 59.3 MG/ML / S odium Phosphate, Monobasic 161 MG/ML Enema Fleet Enema 7-19 GM/118ML Fleet Enema 7-19 GM/118ML 11/25/2019 12:00:00 AM EDT active Fleet Enema 7-19 GM/118ML eCW1 ([facility]) Sodium Phosphate, Dibasic 59.3 MG/ML / S odium Phosphate, Monobasic 161 MG/ML Enema Fleet Enema 7-19 GM/118ML Fleet Enema 7-19 GM/118ML 11/25/2019 12:00:00 AM EDT active Fleet Enema 7-19 GM/118ML eCW1 [facility]) May Have - UNK 11/25/2019 12:00:00 AM EDT active May Have - eCW1 ([facility]) [facility] 14FR/20CM 1 UNK 11/25/2019 12:00:00 AM EDT active [facility] 14FR/20CM 1 eCW1 ([facility]) May Have - UNK 11/25/2019 12:00:00 AM EDT active May Have - eCW1 ([facility]) [facility] 14FR/20CM 1 UNK 11/25/2019 12:00:00 AM EDT active [facility] 14FR/20CM 1 eCW1 ([facility]) May Have - UNK 11/25/2019 12:00:00 AM EDT active May Have - eCW1 ([facility]) [facility] 14FR/20CM 1 UNK 11/25/2019 12:00:00 AM EDT active [facility] 14FR/20CM 1 eCW1 ([facility]) Sodium Phosphate, Dibasic 59.3 MG/ML / S odium Phosphate, Monobasic 161 MG/ML Enema Fleet Enema 7-19 GM/118ML Fleet Enema 7-19 GM/118ML 11/25/2019 12:00:00 AM EDT active Fleet Enema 7-19 GM/118ML eCW1 ([facility]) Sodium Phosphate, Dibasic 59.3 MG/ML / S odium Phosphate, Monobasic 161 MG/ML Enema Fleet Enema 7-19 GM/118ML Fleet Enema 7-19 GM/118ML 11/25/2019 12:00:00 AM EDT active Fleet Enema 7-19 GM/118ML eCW1 [facility] 14FR/20CM 1 UNK 11/25/2019 12:00:00 AM EDT active [facility] 14FR/20CM 1 eCW1 ([facility]) May Have - UNK 11/25/2019 12:00:00 AM EDT active May Have - eCW1 ([facility]) Sodium Phosphate, Dibasic 59.3 MG/ML / S odium Phosphate, Monobasic 161 MG/ML Enema Fleet Enema 7-19 GM/118ML Fleet Enema 7-19 GM/118ML 11/25/2019 12:00:00 AM EDT active Fleet Enema 7-19 GM/118ML eCW1 [facility]) [facility] 14FR/20CM 1 UNK 11/25/2019 12:00:00 AM EDT active [facility] 14FR/20CM 1 eCW1 [facility]) [facility] 14FR/20CM 1 UNK 11/25/2019 12:00:00 AM EDT active [facility] 14FR/20CM 1 eCW1 ([facility]) Sodium Phosphate, Dibasic 59.3 MG/ML / S odium Phosphate, Monobasic 161 MG/ML Enema Fleet Enema 7-19 GM/118ML Fleet Enema 7-19 GM/118ML 11/25/2019 12:00:00 AM EDT active Fleet Enema 7-19 GM/118ML eCW1 [facility]) [facility] 14FR/20CM 1 UNK 11/25/2019 12:00:00 AM EDT active [facility] 14FR/20CM 1 eCW1 [facility]) Bisacodyl 10 MG Rectal Suppository Bisacodyl 10 MG 11/25/2019 12:00 :00 AM EDT 1.0 {suppository_as_needed} active Bisa codyl 10 MG eCW1 [facility]) [facility] 14FR/20CM 1 UNK 11/25/2019 12:00:00 AM EDT active [facility] 14FR/20CM 1 eCW1 [facility]) Bisacodyl 10 MG Rectal Suppository Bisacodyl 10 MG 11/25/2019 12:00 :00 AM EDT 1.0 {suppository_as_needed} active Bisa codyl 10 MG eCW1 ([facility]) Sodium Phosphate, Dibasic 59.3 MG/ML / S odium Phosphate, Monobasic 161 MG/ML Enema Fleet Enema 7-19 GM/118ML Fleet Enema 7-19 GM/118ML 11/25/2019 12:00:00 AM EDT active Fleet Enema 7-19 GM/118ML eCW1 [facility]) [facility] 14FR/20CM 1 UNK 11/25/2019 12:00:00 AM EDT active [facility] 14FR/20CM 1 eCW1 ([facility]) May Have - UNK 11/25/2019 12:00:00 AM EDT active May Have - eCW1 ([facility]) Bisacodyl 10 MG Rectal Suppository Bisacodyl 10 MG 11/25/2019 12:00 :00 AM EDT 1.0 {suppository_as_needed} active Bisa codyl 10 MG eCW1 ([facility]) Bisacodyl 10 MG Rectal Suppository Bisacodyl 10 MG 11/25/2019 12:00 :00 AM EDT 1.0 {suppository_as_needed} active Bisa codyl 10 MG eCW1 ([facility]) Bisacodyl 10 MG Rectal Suppository Bisacodyl 10 MG 11/25/2019 12:00 :00 AM EDT 1.0 {suppository_as_needed} active Bisa codyl 10 MG eCW1 ([facility]) May Have - UNK 11/25/2019 12:00:00 AM EDT active May Have - eCW1 ([facility]) May Have - UNK 11/25/2019 12:00:00 AM EDT active May Have - eCW1 ([facility]) [facility] 14FR/20CM 1 UNK 11/25/2019 12:00:00 AM EDT active [facility] 14FR/20CM 1 eCW1 ([facility]) Sodium Phosphate, Dibasic 59.3 MG/ML / S odium Phosphate, Monobasic 161 MG/ML Enema Fleet Enema 7-19 GM/118ML Fleet Enema 7-19 GM/118ML 11/25/2019 12:00:00 AM EDT active Fleet Enema 7-19 GM/118ML eCW1 ([facility]) May Have - UNK 11/25/2019 12:00:00 AM EDT active May Have - eCW1 ([facility]) May Have - UNK 11/25/2019 12:00:00 AM EDT active May Have - eCW1 ([facility]) Bisacodyl 10 MG Rectal Suppository Bisacodyl 10 MG 11/25/2019 12:00 :00 AM EDT 1.0 {suppository_as_needed} active Bisa codyl 10 MG eCW1 ([facility]) [facility] 14FR/20CM 1 UNK 11/25/2019 12:00:00 AM EDT active [facility] 14FR/20CM 1 eCW1 [facility]) Bisacodyl 10 MG Rectal Suppository Bisacodyl 10 MG 11/25/2019 12:00 :00 AM EDT 1.0 {suppository_as_needed} active Bisa codyl 10 MG eCW1 ([facility]) Bisacodyl 10 MG Rectal Suppository Bisacodyl 10 MG 11/25/2019 12:00 :00 AM EDT 1.0 {suppository_as_needed} active Bisa codyl 10 MG eCW1 ([facility]) May Have - UNK 11/25/2019 12:00:00 AM EDT active May Have - eCW1 ([facility]) [facility] 14FR/20CM 1 UNK 11/25/2019 12:00:00 AM EDT active [facility] 14FR/20CM 1 eCW1 ([facility]) Sodium Phosphate, Dibasic 59.3 MG/ML / S odium Phosphate, Monobasic 161 MG/ML Enema Fleet Enema 7-19 GM/118ML Fleet Enema 7-19 GM/118ML 11/25/2019 12:00:00 AM EDT active Fleet Enema 7-19 GM/118ML eCW1 ([facility]) Bisacodyl 10 MG Rectal Suppository Bisacodyl 10 MG 11/25/2019 12:00 :00 AM EDT 1.0 {suppository_as_needed} active Bisa codyl 10 MG eCW1 ([facility]) Bisacodyl 10 MG Rectal Suppository Bisacodyl 10 MG 11/25/2019 12:00 :00 AM EDT 1.0 {suppository_as_needed} active Bisa codyl 10 MG eCW1 ([facility]) [facility] 14FR/20CM 1 UNK 11/25/2019 12:00:00 AM EDT active [facility] 14FR/20CM 1 eCW1 [facility] 14FR/20CM 1 UNK 11/25/2019 12:00:00 AM EDT active [facility] 14FR/20CM 1 eCW1 ([facility]) Bisacodyl 10 MG Rectal Suppository Bisacodyl 10 MG 11/25/2019 12:00 :00 AM EDT 1.0 {suppository_as_needed} active Bisa codyl 10 MG eCW1 ([facility]) Sodium Phosphate, Dibasic 59.3 MG/ML / S odium Phosphate, Monobasic 161 MG/ML Enema Fleet Enema 7-19 GM/118ML Fleet Enema 7-19 GM/118ML 11/25/2019 12:00:00 AM EDT active Fleet Enema 7-19 GM/118ML eCW1 ([facility]) NITROFURANTOIN, MACROCRYSTALS 25 MG / Ni trofurantoin, Monohydrate 75 MG Oral Capsule Nitrofurantoin Monohyd Macro 100 MG Nitrofurantoin Monohyd Macro 100 MG 08/15/2019 12:00:00 AM EDT active Nitrofurantoin Monohyd Macro 100 MG eCW1 ([facility]) NITROFURANTOIN, MACROCRYSTALS 25 MG / Ni trofurantoin, Monohydrate 75 MG Oral Capsule Nitrofurantoin Monohyd Macro 100 MG Nitrofurantoin Monohyd Macro 100 MG 08/15/2019 12:00:00 AM EDT active Nitrofurantoin Monohyd Macro 100 MG eCW1 ([facility]) NITROFURANTOIN, MACROCRYSTALS 25 MG / Ni trofurantoin, Monohydrate 75 MG Oral Capsule Nitrofurantoin Monohyd Macro 100 MG Nitrofurantoin Monohyd Macro 100 MG 08/15/2019 12:00:00 AM EDT active Nitrofurantoin Monohyd Macro 100 MG eCW1 ([facility]) NITROFURANTOIN, MACROCRYSTALS 25 MG / Ni trofurantoin, Monohydrate 75 MG Oral Capsule Nitrofurantoin Monohyd Macro 100 MG Nitrofurantoin Monohyd Macro 100 MG 08/15/2019 12:00:00 AM EDT active Nitrofurantoin Monohyd Macro 100 MG eCW1 ([facility]) NITROFURANTOIN, MACROCRYSTALS 25 MG / Ni trofurantoin, Monohydrate 75 MG Oral Capsule Nitrofurantoin Monohyd Macro 100 MG Nitrofurantoin Monohyd Macro 100 MG 08/15/2019 12:00:00 AM EDT active Nitrofurantoin Monohyd Macro 100 MG eCW1 ([facility]) NITROFURANTOIN, MACROCRYSTALS 25 MG / Ni trofurantoin, Monohydrate 75 MG Oral Capsule Nitrofurantoin Monohyd Macro 100 MG Nitrofurantoin Monohyd Macro 100 MG 08/15/2019 12:00:00 AM EDT active Nitrofurantoin Monohyd Macro 100 MG eCW1 ([facility]) NITROFURANTOIN, MACROCRYSTALS 25 MG / Ni trofurantoin, Monohydrate 75 MG Oral Capsule Nitrofurantoin Monohyd Macro 100 MG Nitrofurantoin Monohyd Macro 100 MG 08/15/2019 12:00:00 AM EDT active Nitrofurantoin Monohyd Macro 100 MG eCW1 ([facility]) NITROFURANTOIN, MACROCRYSTALS 25 MG / Ni trofurantoin, Monohydrate 75 MG Oral Capsule Nitrofurantoin Monohyd Macro 100 MG Nitrofurantoin Monohyd Macro 100 MG 08/15/2019 12:00:00 AM EDT active Nitrofurantoin Monohyd Macro 100 MG eCW1 ([facility]) NITROFURANTOIN, MACROCRYSTALS 25 MG / Ni trofurantoin, Monohydrate 75 MG Oral Capsule Nitrofurantoin Monohyd Macro 100 MG Nitrofurantoin Monohyd Macro 100 MG 08/15/2019 12:00:00 AM EDT active Nitrofurantoin Monohyd Macro 100 MG eCW1 ([facility]) NITROFURANTOIN, MACROCRYSTALS 25 MG / Ni trofurantoin, Monohydrate 75 MG Oral Capsule Nitrofurantoin Monohyd Macro 100 MG Nitrofurantoin Monohyd Macro 100 MG 08/15/2019 12:00:00 AM EDT active Nitrofurantoin Monohyd Macro 100 MG eCW1 ([facility]) NITROFURANTOIN, MACROCRYSTALS 25 MG / Ni trofurantoin, Monohydrate 75 MG Oral Capsule Nitrofurantoin Monohyd Macro 100 MG Nitrofurantoin Monohyd Macro 100 MG 08/15/2019 12:00:00 AM EDT active Nitrofurantoin Monohyd Macro 100 MG eCW1 ([facility]) NITROFURANTOIN, MACROCRYSTALS 25 MG / Ni trofurantoin, Monohydrate 75 MG Oral Capsule Nitrofurantoin Monohyd Macro 100 MG Nitrofurantoin Monohyd Macro 100 MG 08/15/2019 12:00:00 AM EDT active Nitrofurantoin Monohyd Macro 100 MG eCW1 ([facility]) NITROFURANTOIN, MACROCRYSTALS 25 MG / Ni trofurantoin, Monohydrate 75 MG Oral Capsule Nitrofurantoin Monohyd Macro 100 MG Nitrofurantoin Monohyd Macro 100 MG 08/15/2019 12:00:00 AM EDT active Nitrofurantoin Monohyd Macro 100 MG eCW1 ([facility]) NITROFURANTOIN, MACROCRYSTALS 25 MG / Ni trofurantoin, Monohydrate 75 MG Oral Capsule Nitrofurantoin Monohyd Macro 100 MG Nitrofurantoin Monohyd Macro 100 MG 08/15/2019 12:00:00 AM EDT active Nitrofurantoin Monohyd Macro 100 MG eCW1 ([facility]) NITROFURANTOIN, MACROCRYSTALS 25 MG / Ni trofurantoin, Monohydrate 75 MG Oral Capsule Nitrofurantoin Monohyd Macro 100 MG Nitrofurantoin Monohyd Macro 100 MG 08/15/2019 12:00:00 AM EDT active Nitrofurantoin Monohyd Macro 100 MG eCW1 ([facility]) NITROFURANTOIN, MACROCRYSTALS 25 MG / Ni trofurantoin, Monohydrate 75 MG Oral Capsule Nitrofurantoin Monohyd Macro 100 MG Nitrofurantoin Monohyd Macro 100 MG 08/15/2019 12:00:00 AM EDT active Nitrofurantoin Monohyd Macro 100 MG eCW1 ([facility]) NITROFURANTOIN, MACROCRYSTALS 25 MG / Ni trofurantoin, Monohydrate 75 MG Oral Capsule Nitrofurantoin Monohyd Macro 100 MG Nitrofurantoin Monohyd Macro 100 MG 08/15/2019 12:00:00 AM EDT active Nitrofurantoin Monohyd Macro 100 MG eCW1 ([facility]) NITROFURANTOIN, MACROCRYSTALS 25 MG / Ni trofurantoin, Monohydrate 75 MG Oral Capsule Nitrofurantoin Monohyd Macro 100 MG Nitrofurantoin Monohyd Macro 100 MG 08/15/2019 12:00:00 AM EDT active Nitrofurantoin Monohyd Macro 100 MG eCW1 ([facility]) NITROFURANTOIN, MACROCRYSTALS 25 MG / Ni trofurantoin, Monohydrate 75 MG Oral Capsule Nitrofurantoin Monohyd Macro 100 MG Nitrofurantoin Monohyd Macro 100 MG 08/15/2019 12:00:00 AM EDT active Nitrofurantoin Monohyd Macro 100 MG eCW1 ([facility]) NITROFURANTOIN, MACROCRYSTALS 25 MG / Ni trofurantoin, Monohydrate 75 MG Oral Capsule Nitrofurantoin Monohyd Macro 100 MG Nitrofurantoin Monohyd Macro 100 MG 08/15/2019 12:00:00 AM EDT active Nitrofurantoin Monohyd Macro 100 MG eCW1 ([facility]) NITROFURANTOIN, MACROCRYSTALS 25 MG / Ni trofurantoin, Monohydrate 75 MG Oral Capsule Nitrofurantoin Monohyd Macro 100 MG Nitrofurantoin Monohyd Macro 100 MG 08/15/2019 12:00:00 AM EDT active Nitrofurantoin Monohyd Macro 100 MG eCW1 ([facility]) Chlorthalidone 25 MG Oral Tablet Chlorthalidone 25 MG 2019 12:00:00 AM EDT 1.0 {tablet} active Chlorthalid one 25 MG eCW1 ([facility]) Chlorthalidone 25 MG Oral Tablet Chlorthalidone 25 MG 2019 12:00:00 AM EDT 1.0 {tablet} active Chlorthalid one 25 MG eCW1 ([facility]) Chlorthalidone 25 MG Oral Tablet Chlorthalidone 25 MG 2019 12:00:00 AM EDT 1.0 {tablet} active Chlorthalid one 25 MG eCW1 ([facility]) Chlorthalidone 25 MG Oral Tablet Chlorthalidone 25 MG 2019 12:00:00 AM EDT 1.0 {tablet} active Chlorthalid one 25 MG eCW1 ([facility]) Chlorthalidone 25 MG Oral Tablet Chlorthalidone 25 MG 2019 12:00:00 AM EDT 1.0 {tablet} active Chlorthalid one 25 MG eCW1 ([facility]) Chlorthalidone 25 MG Oral Tablet Chlorthalidone 25 MG 2019 12:00:00 AM EDT 1.0 {tablet} active Chlorthalid one 25 MG eCW1 ([facility]) Chlorthalidone 25 MG Oral Tablet Chlorthalidone 25 MG 2019 12:00:00 AM EDT 1.0 {tablet} active Chlorthalid one 25 MG eCW1 ([facility]) Chlorthalidone 25 MG Oral Tablet Chlorthalidone 25 MG 2019 12:00:00 AM EDT 1.0 {tablet} active Chlorthalid one 25 MG eCW1 ([facility]) Chlorthalidone 25 MG Oral Tablet Chlorthalidone 25 MG 2019 12:00:00 AM EDT 1.0 {tablet} active Chlorthalid one 25 MG eCW1 ([facility]) Chlorthalidone 25 MG Oral Tablet Chlorthalidone 25 MG 2019 12:00:00 AM EDT 1.0 {tablet} active Chlorthalid one 25 MG eCW1 ([facility]) Chlorthalidone 25 MG Oral Tablet Chlorthalidone 25 MG 2019 12:00:00 AM EDT 1.0 {tablet} active Chlorthalid one 25 MG eCW1 ([facility]) Chlorthalidone 25 MG Oral Tablet Chlorthalidone 25 MG 2019 12:00:00 AM EDT 1.0 {tablet} active Chlorthalid one 25 MG eCW1 ([facility]) Chlorthalidone 25 MG Oral Tablet Chlorthalidone 25 MG 2019 12:00:00 AM EDT 1.0 {tablet} active Chlorthalid one 25 MG eCW1 ([facility]) Chlorthalidone 25 MG Oral Tablet Chlorthalidone 25 MG 2019 12:00:00 AM EDT 1.0 {tablet} active Chlorthalid one 25 MG eCW1 ([facility]) Chlorthalidone 25 MG Oral Tablet Chlorthalidone 25 MG 2019 12:00:00 AM EDT 1.0 {tablet} active Chlorthalid one 25 MG eCW1 ([facility]) Chlorthalidone 25 MG Oral Tablet Chlorthalidone 25 MG 2019 12:00:00 AM EDT 1.0 {tablet} active Chlorthalid one 25 MG eCW1 ([facility]) Chlorthalidone 25 MG Oral Tablet Chlorthalidone 25 MG 2019 12:00:00 AM EDT 1.0 {tablet} active Chlorthalid one 25 MG eCW1 ([facility]) Chlorthalidone 25 MG Oral Tablet Chlorthalidone 25 MG 2019 12:00:00 AM EDT 1.0 {tablet} active Chlorthalid one 25 MG eCW1 ([facility]) Chlorthalidone 25 MG Oral Tablet Chlorthalidone 25 MG 2019 12:00:00 AM EDT 1.0 {tablet} active Chlorthalid one 25 MG eCW1 ([facility]) Chlorthalidone 25 MG Oral Tablet Chlorthalidone 25 MG 2019 12:00:00 AM EDT 1.0 {tablet} active Chlorthalid one 25 MG eCW1 ([facility]) Chlorthalidone 25 MG Oral Tablet Chlorthalidone 25 MG 2019 12:00:00 AM EDT 1.0 {tablet} active Chlorthalid one 25 MG eCW1 ([facility]) Chlorthalidone 25 MG Oral Tablet Chlorthalidone 25 MG 2019 12:00:00 AM EDT 1.0 {tablet} active Chlorthalid one 25 MG eCW1 ([facility]) Chlorthalidone 25 MG Oral Tablet Chlorthalidone 25 MG 2019 12:00:00 AM EDT 1.0 {tablet} active Chlorthalid one 25 MG eCW1 ([facility]) Chlorthalidone 25 MG Oral Tablet Chlorthalidone 25 MG 2019 12:00:00 AM EDT 1.0 {tablet} active Chlorthalid one 25 MG eCW1 ([facility]) Chlorthalidone 25 MG Oral Tablet Chlorthalidone 25 MG 2019 12:00:00 AM EDT 1.0 {tablet} active Chlorthalid one 25 MG eCW1 ([facility]) Chlorthalidone 25 MG Oral Tablet Chlorthalidone 25 MG 2019 12:00:00 AM EDT 1.0 {tablet} active Chlorthalid one 25 MG eCW1 ([facility]) May Have - UNK 07/14/2019 12:00:00 AM EDT active rest periods throught the day eCW1 ([facility]) Oseltamivir 75 MG Oral Capsule Oseltamivir Phosphate 7 5 MG Oseltamivir Phosphate 75 MG 07/01/2019 12:00:00 AM EDT active 1 capsule eCW1 ([facility]) Wheelchair _ UNK 03/18/2019 12:00:00 AM EST activ e Wheelchair _ eCW1 ([facility]) Wheelchair _ UNK 03/18/2019 12:00:00 AM EST activ e Wheelchair _ eCW1 ([facility]) Wheelchair _ K 03/18/2019 12:00:00 AM EST activ e Wheelchair _ eCW1 ([facility]) Wheelchair _ UNK 03/18/2019 12:00:00 AM EST activ e Wheelchair _ [facility] Wheelchair _ K 03/18/2019 12:00:00 AM EST activ e Wheelchair _ [facility] Wheelchair _ UNK 03/18/2019 12:00:00 AM EST activ e Wheelchair _ [facility] Wheelchair _ K 03/18/2019 12:00:00 AM EST activ e Wheelchair _ [facility] Wheelchair _ UNK 03/18/2019 12:00:00 AM EST activ e Wheelchair _ [facility]CW[facility] Wheelchair _ UNK 03/18/2019 12:00:00 AM EST activ e Wheelchair _ [facility]CW1 [facility]) Wheelchair _ UNK 03/18/2019 12:00:00 AM EST activ e Wheelchair _ [facility]CW1 [facility]) Wheelchair _ UNK 03/18/2019 12:00:00 AM EST activ e Wheelchair _ [facility]CW1 [facility]) Wheelchair _ UNK 03/18/2019 12:00:00 AM EST activ e Wheelchair _ [facility]CW1 [facility]) Wheelchair _ UNK 03/18/2019 12:00:00 AM EST activ e Wheelchair _ [facility]CW1 [facility]) Wheelchair _ UNK 03/18/2019 12:00:00 AM EST activ e Wheelchair _ [facility]CW1 [facility]) Wheelchair _ UNK 03/18/2019 12:00:00 AM EST active Ifeanyi height manual wheelchair with accessories eCW1 ([facility]) Wheelchair _ UNK 03/18/2019 12:00:00 AM EST activ e Wheelchair _ [facility]CW1 [facility]) Wheelchair _ UNK 03/18/2019 12:00:00 AM EST activ e Wheelchair _ [facility]CW1 [facility]) Wheelchair _ UNK 03/18/2019 12:00:00 AM EST activ e Wheelchair _ [facility]CW1 ([facility]) Wheelchair _ UNK 03/18/2019 12:00:00 AM EST activ e Wheelchair _ [facility]CW1 ([facility]) Wheelchair _ UNK 03/18/2019 12:00:00 AM EST activ e Wheelchair _ [facility]CW1 ([facility]) Wheelchair _ UNK 03/18/2019 12:00:00 AM EST activ e Wheelchair _ [facility]CW1 ([facility]) Wheelchair _ UNK 03/18/2019 12:00:00 AM EST activ e Wheelchair _ [facility]CW1 [facility]) Wheelchair _ UNK 03/18/2019 12:00:00 AM EST active Ifeanyi height manual wheelchair with accessories eCW1 ([facility]) Wheelchair _ UNK 03/18/2019 12:00:00 AM EST activ e Wheelchair _ [facility]CW1 ([facility]) Wheelchair _ UNK 03/18/2019 12:00:00 AM EST activ e Wheelchair _ [facility]CW1 ([facility]) Wheelchair _ UNK 03/18/2019 12:00:00 AM EST activ e Wheelchair _ [facility]CW1 ([facility]) Wheelchair _ UNK 03/18/2019 12:00:00 AM EST activ e Wheelchair _ [facility]CW1 ([facility]) Wheelchair _ UNK 03/18/2019 12:00:00 AM EST activ e Wheelchair _ [facility]CW1 [facility]) Wheelchair _ UNK 03/18/2019 12:00:00 AM EST activ e Wheelchair _ [facility]CW1 ([facility]) Wheelchair _ UNK 03/18/2019 12:00:00 AM EST activ e Wheelchair _ [facility]CW1 [facility]) Wheelchair _ UNK 03/18/2019 12:00:00 AM EST activ e Wheelchair _ [facility]CW1 [facility]) Wheelchair _ UNK 03/18/2019 12:00:00 AM EST activ e Wheelchair _ [facility]CW1 ([facility]) Wheelchair _ UNK 03/18/2019 12:00:00 AM EST activ e Wheelchair _ [facility]CW1 ([facility]) Wheelchair _ UNK 03/18/2019 12:00:00 AM EST activ e Wheelchair _ [facility]CW1 ([facility]) Wheelchair _ UNK 03/18/2019 12:00:00 AM EST activ e Wheelchair _ [facility]CW1 ([facility]) Wheelchair _ UNK 03/18/2019 12:00:00 AM EST activ e Wheelchair _ [facility]CW1 ([facility]) Wheelchair _ UNK 03/18/2019 12:00:00 AM EST activ e Wheelchair _ [facility]CW1 ([facility]) Wheelchair _ UNK 03/18/2019 12:00:00 AM EST activ e Wheelchair _ [facility]CW1 ([facility]) Wheelchair _ UNK 03/18/2019 12:00:00 AM EST activ e Wheelchair _ [facility]CW1 [facility]) Doxycycline Monohydrate 100 MG Oral Capsule Doxycycline [place] hydrate 03/11/2019 12:00:00 AM EST ORAL active M EDENT ([facility], [facility]) Mupirocin 0.02 MG/MG Topical Ointment Mupirocin 03/11/2019 12:00:00 AM EST active MEDENT ([facility], [facility]) Triamcinolone Acetonide 1 MG/ML Topical Cream Triamcin olone Acetonide 0.1 % Triamcinolone Acetonide 0.1 % 1.0 {application_to_affected_a hector} active Triamcinolone Acetonide 0.1 % [facility]C [facility] Triamcinolone Acetonide 1 MG/ML Topical Cream Triamcin olone Acetonide 0.1 % Triamcinolone Acetonide 0.1 % 1.0 {application_to_affected_a hector} active Triamcinolone Acetonide 0.1 % eC W1 [facility]) Insurance Providers Payer name Policy type / Coverage type Policy ID Covered libertarian ID Covered libertarian's relationship to millan Policy Millan Plan Information EMEDNY [id number] SP [id number] MEDICARE [id number] SP [id number] P83 MEDICARE [id number] SP [id number] MEDICAID -O/P MARLENA [id number] 18 [id number] MEDICARE PART A -O [id number] 18 [id number] MEDICARE PART A -I/P [id number] 18 [id number] MEDICAID -I/P [id number] 18 [id number] MEDICARE PART A -O/P [id number] 18 [id number] MEDICAID -O/P EMERGENCY ROOM [id number] 18 [id number] MEDICAID [id number] SP [id number] [facility] [id number] [facility] [id number] [facility] [id number] [facility] [id number] [facility] [id number] ANSI-Medicaid [id number] Medicare Part B Medicare Primary [id number] Self [id number] [facility] [id number] Self [id number] ANSI-Medicare Part B [id number] ANSI-Medicaid [id number] MEDICARE [id number] ANSI-Medicare Part B [id number] ANSI-Medicaid [id number] ANSI-Medicare Part B [id number] ANSI-Medicaid [id number] ANSI-Medicare Part B [id number] ANSI-Medicaid [id number] ANSI-Medicare Part B [id number] ANSI-Medicaid [id number] ANSI-Medicaid [id number] ANSI-Medicare Part B [id number] ANSI-Medicare Part B [id number] ANSI-Medicaid [id number] ANSI-Medicaid [id number] ANSI-Medicare Part B [id number] Medicaid [place] Medig[place] Part B [id number] Self [id number] Medicare Natl Gov't Servi Medicare Primary [id number] Self [id number] ANSI-Medicare Part B [id number] ANSI-Medicaid [id number] Medicare Part B Medicare Primary [id number] Self [id number] ANSI-Medicare Part B [id number] ANSI-Medicaid [id number] ANSI-Medicaid [id number] ANSI-Medicare Part B [id number] ANSI-Medicare Part B [id number] ANSI-Medicaid [id number] Medicare Natl Gov't Servi Medicare Primary [id number] Self [id number] ANSI-Medicaid [id number] ANSI-Medicare Part B [id number] ANSI-Medicare Part B [id number] ANSI-Medicaid [id number] ANSI-Medicare Part B [id number] ANSI-Medicaid [id number] ANSI-Medicaid [id number] ANSI-Medicare Part B [id number] ANSI-Medicare Part B [id number] ANSI-Medicaid [id number] Medicare Part B Medicare Primary [id number] Self [id number] ANSI-Medicare Part B [id number] ANSI-Medicaid [id number] ANSI-Medicare Part B [id number] ANSI-Medicaid [id number] ANSI-Medicaid [id number] ANSI-Medicare Part B [id number] ANSI-Medicaid [id number] ANSI-Medicare Part B [id number] ANSI-Medicaid [id number] ANSI-Medicare Part B [id number] ANSI-Medicaid [id number] ANSI-Medicare Part B [id number] ANSI-Medicare Part B [id number] [facility]-Medicaid [id number] [facility]-Medicare Part B [id number] [facility] [id number] [facility] [id number] [facility]-Medicare Part B [id number] Medicare Part B Medicare Primary [id number] Self [id number] Medicare Part B Medicare Primary [id number] Self [id number] Medicare [facility] Gov't Servi Medicare Primary [id number] Self [id number] Medicare Part B Medicare Primary [id number] Self [id number] Medicare Part B Medicare Primary [id number] Self [id number] Medicare Part B Medicare Primary [id number] Self [id number] Medicare Part B Medicare Primary [id number] Self [id number] Medicare Part B Medicare Primary Self Medicaid Medicaid Self Medicare Medicare Primary Self SELF PAY UNAVAILABLE SP [facility] Medicaid [facility] Part B Self [place] Primary Self MEDICAID S [id number] S [id number] MEDICARE P [id number] S [id number] Problems, Conditions, and Diagnoses Code Display Name Description Problem Type Effective Dates Data Source(s) J30.2 764414889 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, 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 12/02/2019 12:00:00 AM EDT [facility]) [id number] Ingrowing nail Ingrowing nail Problem 11/24/2019 12:00: 00 AM EDT [facility] ([facility] 895861732 Onychomycosis Onychomycosis Problem 11/24/2019 12:00:00 AM EDT [facility] ([facility] 70642435 Pain in limb Pain in limb Problem 11/24/2019 12:00:00 A M EDT [facility] ([facility] R13.12 42317067 Oropharyngeal dysphagia Problem 07/08/2019 1 2:00:00 AM EDT [facility] R13.12 55308970 Oropharyngeal dysphagia Problem 07/08/2019 1 2:00:00 AM EDT eC1 ([facility]) K449 Diaphragmatic hernia without obstruction or gangrene Diaphragmatic hernia without obstruction or gangrene Diagnosis 10/10/2019 10:35:00 AM EDT [facility] Z1159 Encounter for screening for other viral diseases Encounter for screening for other viral diseases Diagnosis 10/10/2019 10:35:00 AM EDT [facility] E876 Hypokalemia Hypokalemia Diagnosis 10/09/2019 07:15:00 PM EDT [facility] R569 Unspecified convulsions Unspecified convulsions Diagno sis 10/09/2019 07:15:00 PM EDT [facility] I10 Essential (primary) hypertension Essential (primary) h ypertension Diagnosis 10/09/2019 07:15:00 PM EDT [facility] H548 Legal blindness, as defined in [place] Legal blindne ss, as defined in [place] Diagnosis 10/09/2019 07:15:00 PM EDT [facility] G809 Cerebral palsy, unspecified Cerebral palsy, unspecifie d Diagnosis 10/09/2019 07:15:00 PM EDT [facility] K259 Gastric ulcer, unspecified a s acute or chronic, without hemorrhage or perforation Gastric ulcer, unspecified as acute or c hronic, without hemorrhage or perforation Diagnosis 10/09/2019 07:15:00 PM [facility] M6282 Rhabdomyolysis Rhabdomyolysis Diagnosis 10/09/2019 07:15: 00 PM [facility] N390 Urinary tract infection, site not specif ied Urinary tract infection, site not specified Diagnosis 10/09/2019 07:15:00 PM [facility] A419 Sepsis, unspecified organism Sepsis, unspecified organ ism Diagnosis 10/09/2019 07:15:00 PM [facility] J189 Pneumonia, unspecified organism Pneumonia, unspecified organism Diagnosis 10/09/2019 07:15:00 PM [facility] Surgeries/Procedures Procedure Description Date Indications Data Source(s) DEBRIDEMENT NAIL ANY METHOD 02/24/2020 12:00:00 AM EST [facility] ([facility] DEBRIDEMENT NAIL ANY METHOD 11/18/2019 12:00:00 AM EDT [facility] ([facility] Plain Radiography of Chest Plain Radiography of Chest 2019 12:00:00 AM [facility] Monitoring of Cardiac Electrical Activity, External Ap proach Monitoring of Cardiac Electrical Activity, External Approach 10/10/2019 12:00:00 AM [facility] Introduction of Other Anti-infective int o Peripheral Vein, Percutaneous Approach Introduction of Other Anti-infective int o Peripheral Vein, Percutaneous Approach 10/10/2019 12:00:00 AM [facility] Introduction of Electrolytic and Water B alance Substance into Peripheral Vein, Percutaneous Approach Introduction of Electrolytic and Water B alance Substance into Peripheral Vein, Percutaneous Approach 10/10/2019 12:00:00 AM [facility] Office Visit, Est Pt., Level 3 FC 07/01/2019 12:00:00 AM EDT [facility] Office Visit, Est Pt., Level 3 PC 07/01/2019 12:00:00 AM EDT eCW1 ([facility]) Influenza A+B 07/01/2019 12:00:00 AM EDT eCW1 ([facility]) Office Visit, Est Pt., Level 4 PC 03/10/2019 12:00:00 AM EST eCW1 ([facility]) Results ID Date Data Source [id number] 03/10/2020 10:12:00 AM EST [facility] Name Value Range Interpretation Code Description Data Trini rce(s) Supporting Document(s) SARS coronavirus 2 RNA [Presence] in Res piratory specimen by LORIE with probe detection POSITIVE [facility] This lab was ordered by [facility] a nd reported by [facility]. ID Date Data Source [id number] 01/30/2020 09:04:00 AM EST MEDENT ([facility], ) Name Value Range Interpretation Code Description Data Trini rce(s) Supporting Document(s) Creatine kinase [Enzymatic activity/volume] in Serum or Plasma 82 U /L 39-308 MED[facility] ([facility], ) <content>note:<nlbl:demographic_changed> </content>
<content></content> Phenobarbital [Mass/volume] in Serum or Plasma 35.3 UG/ML 15.0-40.0 [facility] ([facility], ) <content>note:<nlbl:demographic_changed> </content>
<content></content> Phenytoin [Mass/volume] in Serum or Plasma 17.4 UG/ML 10.0-20.0 [facility] ([facility], ) <content>note:<nlbl:demographic_changed> </content>
<content></content> Levetiracetam [Mass/volume] in Serum or Plasma 15.4 ug/mL 10.0-40.0 MEDENT ([facility], ) This test was developed and its performa nce characteristics determined by [facility]. It has not been cleared or approved by the Food and Drug Administration. Performed at: [address] [id number] Elastic Assembler: Seng Nichols MD, Phone: [phone] ID Date Data Source [id number] 01/30/2020 09:04:00 AM EST MEDENT ([facility], ) Name Value Range Interpretation Code Description Data Trini rce(s) Supporting Document(s) Blood Urea Nitrogen 14 mg/dL 7-18 [facility] ([facility], ) Glucose, Fasting 164 mg/dL 70-100 [facility] ([facility]) Creatinine For GFR 0.71 mg/dL 0.70-1.30 [facility] ([facility]) Glomerular Filtration Rate Laboratory test result [facility] ([facility]) <content>Units are mL/min/1.73 m2</content>
<content></content>
<content>Chronic Kidney Disease Staging per NKF:</content>
<content></content>
<content>Stage I & II GFR >=60 Normal to Mildly Decreased</content>
<content>Stage III GFR 30- 59 Moderately Decreased</content>
<content>Stage IV GFR 15-29 Severely Decreased</content>
<content>Stage V GFR <15 Very Little GFR Left</content>
<content>ESRD GFR <15 on TABLE GAMES DEALER</content>
<content></content> Sodium Level 139 meq/L 136-145 [facility] ([facility]) Potassium Serum 4.6 meq/L 3.5-5.1 [facility] ([facility]) Chloride Level 105 meq/L 98-107 [facility] ([facility]) Calcium Level 8.9 mg/dL 8.5-10.1 [facility] ([facility]) Carbon Dioxide Level 28 meq/L 21-32 [facility] ([facility]) Anion Gap 6 meq/L 8-16 [facility] ([facility]) Alt/SGPT 34 U/L 12-78 [facility] ([facility]) Ast/Sgot 15 U/L 7-37 [facility] ([facility]) Bilirubin,Total 0.2 mg/dL 0.2-1.0 [facility] ([facility]) Alkaline Phosphatase 112 U/L 45-117 [facility] ([facility]) Total Protein 7.4 GM/DL 6.4-8.2 MED[facility] ([facility]) Albumin 3.5 GM/DL 3.2-5.2 [facility] Albumin/Globulin Ratio 0.9 [facility] ([facility]) ID Date Data Source [id number] 01/30/2020 09:04:00 AM EST [facility] ([facility]) Name Value Range Interpretation Code Description Data Trini rce(s) Supporting Document(s) Red Blood Count 4.60 10 4.30-6.10 [facility] ([facility]) White Blood Count 5.4 10 4.0-10.0 [facility] ([facility]) Hemoglobin 12.2 g/dL 13.5-17.5 [facility] Hematocrit 39.6 % 42.0-52.0 [facility] ([facility]) Mean Corpuscular HGB Conc 30.8 g/dL 32.0-36.5 [facility] ([facility]) Mean Corpuscular Hemoglobin 26.5 pg 27.0-33.0 [facility] ([facility]) Mean Corpuscular Volume 86.1 fl 80.0-96.0 M EDENT ([facility]) Platelet Count, Automated 547 10 150-450 [facility] ([facility]) Red Cell Distribution Width 14.1 % 11.5-14.5 [facility] ([facility]) Neutrophils % 47.5 % 36.0-66.0 [facility] ([facility]) Lymph % 36.6 % 24.0-44.0 [facility] [place] % 13.8 % 0.0-5.0 [facility] Eos % 1.1 % 0.0-3.0 [facility] Baso % 0.6 % 0.0-1.0 [facility] Immature Granulocyte % 0.4 % 0-3.0 [facility] Nucleated Red Blood Cell % 0.0 % 0-0 MED ENT ([facility]) Neutrophils # 2.5 10 1.5-8.5 MED[facility] ([facility]) [place] # 0.7 10 0.0-0.8 [facility] ([facility]) Eos # 0.1 10 0.0-0.5 [facility] ([facility]) Lymph # 2.0 10 1.5-5.0 [facility] ([facility]) Baso # 0.0 10 0.0-0.2 [facility] ([facility]) ID Date Data Source PHENYTOIN (DILANTIN) 01/30/2020 12:00:00 AM EST eCW1 ([facility]) Name Value Range Interpretation Code Description Data Trini rce(s) Supporting Document(s) 17.4 10.0-20.0 PHENYTOIN (DILANTIN) eCW1 ([facility]) ID Date Data Source Comprehensive Metabolic Profile (CMP) 01/30/2020 12:00:00 AM EST [facility] Name Value Range Interpretation Code Description Data Trini rce(s) Supporting Document(s) 164 70-100 GLUCOSE, FASTING eCW1 ([facility]) 14 7-18 BLOOD UREA NITROGEN eCW1 ([facility]) 0.71 0.70-1.30 CREATININE FOR GFR eCW1 ([facility]) > 60.0 >56 GLOMERULAR FILTRATION RATE eCW 1 ([facility]) 105 98-107 CHLORIDE LEVEL eCW1 ([facility]) 139 136-145 SODIUM LEVEL eCW1 ([facility]) 4.6 3.5-5.1 POTASSIUM SERUM eCW1 ([facility]) 28 21-32 CARBON DIOXIDE LEVEL eCW1 ([facility]) 112 45-117 ALKALINE PHOSPHATASE eCW1 ([facility]) 8.9 8.5-10.1 CALCIUM LEVEL eCW1 ([facility]) 34 12-78 ALT/SGPT eCW1 ([facility]) 15 7-37 AST/SGOT eCW1 ([facility]) 7.4 6.4-8.2 TOTAL PROTEIN eCW1 ([facility]) 0.9 ALBUMIN/GLOBULIN RATIO eCW1 ([facility]) 0.2 0.2-1.0 BILIRUBIN,TOTAL eCW1 ([facility]) 3.5 3.2-5.2 ALBUMIN eCW1 ([facility]) ID Date Data Source CPK CREATINE PHOSPHOKINASE 01/30/2020 12:00:00 AM EST eCW1 ( [facility]) Name Value Range Interpretation Code Description Data Trini rce(s) Supporting Document(s) 82 39-308 CPK CREATINE PHOSPHOKINASE eCW 1 ([facility]) ID Date Data Source CBC with Differential 01/30/2020 12:00:00 AM EST eCW1 ([facility]) Name Value Range Interpretation Code Description Data Trini rce(s) Supporting Document(s) 5.4 4.0-10.0 WHITE BLOOD COUNT eCW1 ([facility]) 12.2 13.5-17.5 HEMOGLOBIN eCW1 ([facility]) 4.60 4.30-6.10 RED BLOOD COUNT eCW1 ([facility]) 39.6 42.0-52.0 HEMATOCRIT eCW1 ([facility]) 86.1 80.0-96.0 MEAN CORPUSCULAR VOLUME e CW1 ([facility]) 30.8 32.0-36.5 MEAN CORPUSCULAR HGB CONC eCW1 ([facility]) 26.5 27.0-33.0 MEAN CORPUSCULAR HEMOGLOB IN eCW1 ([facility]) 14.1 11.5-14.5 RED CELL DISTRIBUTION WID TH eCW1 ([facility]) 47.5 36.0-66.0 NEUTROPHILS % eCW1 ([facility]) 13.8 0.0-5.0 MONO % eCW1 ([facility]) 547 150-450 PLATELET COUNT, AUTOMATED eCW1 ([facility]) 36.6 24.0-44.0 LYMPH % eCW1 ([facility]) 2.0 1.5-5.0 LYMPH # eCW1 ([facility]) 0.6 0.0-1.0 BASO % eCW1 ([facility]) 2.5 1.5-8.5 NEUTROPHILS # eCW1 ([facility]) 1.1 0.0-3.0 EOS % eCW1 ([facility]) 0.7 0.0-0.8 MONO # eCW1 ([facility]) 0.0 0.0-0.2 BASO # eCW1 ([facility]) 0.1 0.0-0.5 EOS # eCW1 ([facility]) ID Date Data Source PHENOBARBITAL LEVEL 01/30/2020 12:00:00 AM EST eCW1 ([facility]) Name Value Range Interpretation Code Description Data Trini rce(s) Supporting Document(s) 35.3 15.0-40.0 PHENOBARBITAL LEVEL eCW1 ([facility]) ID Date Data Source [id number] 01/17/2020 03:27:00 PM EST [facility] Name Value Range Interpretation Code Description Data Trini rce(s) Supporting Document(s) SARS coronavirus 2 RNA [Presence] in Res piratory specimen by LORIE with probe detection [facility] This lab was ordered by [facility] a nd reported by [facility]. ID Date Data Source [id number] 01/16/2020 12:30:00 PM EST [facility] Name Value Range Interpretation Code Description Data Trini rce(s) Supporting Document(s) SARS coronavirus 2 RNA [facility] This lab was ordered by [facility] and reported by [facility]. ID Date Data Source C REACTIVE PROTEIN QUANTITATIV (At [facility]) 12/02/2019 05:56 :51 AM EDT [facility] Name Value Range Interpretation Code Description Data Trini rce(s) Supporting Document(s) 1.09 C REACTIVE PROTEIN QUANTITATIV [facility]1 ([facility]) ID Date Data Source ERYTHROCYTE SEDIMENTATION RATE 12/02/2019 03:51:51 AM EDT eC W1 ([facility]) Name Value Range Interpretation Code Description Data Trini rce(s) Supporting Document(s) 26 ERYTHROCYTE SEDIMENTATION RATE [facility]CW1 ([facility]) ID Date Data Source [id number] 10/15/2019 12:14:00 [place] [address] PROGRESS NOTENAME: ANAI ARBOLEDA ROOM#: 104-1DATE OF : 1960 MR#: [id number] DATE: 10/10/19 OF SERVICE: 10/14/19UBJECTIVE: Patient was [...] rce(s) Supporting Document(s) ID Date Data Source [id number] 10/26/2019 10:00:00 AM EDT [facility] ([facility], ) Name Value Range Interpretation Code Description Data Trini rce(s) Supporting Document(s) Phenytoin [Mass/volume] in Serum or Plasma 15.1 UG/ML 10.0-20.0 [facility] ([facility], ) <content>note:<nlbl:[email or web address]> </content>
<content></content> ID Date Data Source [id number] 10/17/2019 02:00:00 [place] [address] PHONE: [phone] FAX: [phone] Name .................. : ANAI ARBOLEDA Acct Number.................. : [id number] ROOM. ................. : 104-1 MR Number ................... : [id number] Stay type ............. : I/P Discharge Date......... ... : Admit Date ......... : 10/10/19 Admit Phys .................... : ISAEL HERNÁNDEZ Date of ....... : 1960 Family Phys ................... : RU VANEGAS Phone .................. : [phone] Age ................................ : 58 Film# .................. .:[id number] Sex ................................. : M Unsigned transcriptions are preliminary reports and do not represent a medical or legal document CHEST PORTABLE [id number] COMPLETE:10/14/19 10:22 46487 (REASON FOR CHEST: PNEUM ONIA PORTABLE CHEST X-RAY: INDICATION: Pneumonia. FINDINGS: Examination reveals prominence of the pulmonary vasculature. There is increased density identified at the left lung base, for which an underlying infiltrate is not excluded. The osseous structures demonstrate degenerative changes. IMPRESSION: Suspicion for a left basilar infiltrate. [facility]. Examination dictated by FREIDA Mcneal. Examination was reviewed with Eliud Bowman MD, radiologist at the time of this dictation. Electronically Reviewed and Signed By Eliud Bowman MD , 10/17/19 14:00, KG Transcribe Initials: PENG , Transcribe Date: 10/14/19 14:24, Dictation Date: Copy for: 710 MED REC DISCHARGED Page 1 of 1 Name Value Range Interpretation Code Description Data Trini rce(s) Supporting Document(s) ID Date Data Source [id number] 10/14/2019 09:13:00 AM EDT [facility] Name Value Range Interpretation Code Description Data Trini rce(s) Supporting Document(s) Creatine kinase [Enzymatic activity/volume] in Serum or Plas ma 1188 U/L 30 - 170 H [facility] ID Date Data Source [id number] 10/14/2019 09:13:00 AM EDT [facility] Name Value Range Interpretation Code Description Data Trini rce(s) Supporting Document(s) COMPREHENSIVE METABOLIC PANEL [facility] COMPREHENSIVE METABOLIC PANEL Sodium [Moles/volume] in Serum or Plasma 137 mEq/L 134 - 153 [facility] Potassium [Moles/volume] in Serum or Plasma 3.8 mEq/L 3.6 - 5.0 [facility] Chloride [Moles/volume] in Serum or Plasma 104 mEq/L 98 - 107 [facility] Carbon dioxide, total [Moles/volume] in Serum or Plasma 20 MEQ/L 22 - 30 L [facility] Glucose [Mass/volume] in Serum or Plasma 118 MG/DL 65 - 110 H [facility] BUN 5 MG/DL 7 - 21 L [facility] Creatinine [Mass/volume] in Serum or Plasma 0.6 MG/DL 0.7 - 1.5 L [facility] BUN/CREAT 8 8 - 27 [facility] Protein [Mass/volume] in Serum or Plasma 6.7 G/DL 6.3 - 8.2 [facility] Albumin [Mass/volume] in Serum or Plasma 3.6 G/DL 3.9 - 5.0 L [facility] Globulin [Mass/volume] in Serum by calculation 3.1 GM/DL 2.4 - 3.2 [facility] A/G RATIO 1.2 0.8 - 2.0 [facility] Calcium [Mass/volume] in Serum or Plasma 8.3 MG/DL 8.4 - 10.2 L [facility] Bilirubin.total [Mass/volume] in Serum or Plasma <0.7 MG/DL 0.2 - 1.3 [facility] Alkaline phosphatase [Enzymatic activity/volume] in Serum or Plasma 107 U/L 38 - 126 [facility] Aspartate aminotransferase [Enzymatic activity/volume] in Serum or Plasma 27 U/L 5 - 40 [facility] Alanine aminotransferase [Enzymatic activity/volume] in Seru m or Plasma 21 U/L 7 - 56 [facility] Anion gap 3 in Serum or Plasma 13.0 mmol/L 8.0 - 16.0 [facility] AGE 58 yrs [facility] NON-AA GFR >60 mL/min [facility] ital AFR AMER GFR >60 mL/min [facility] Male GFR In terprentation [...] >32 mL/min Normal ID Date Data Source [id number] 10/14/2019 08:59:00 AM EDT [facility] Name Value Range Interpretation Code Description Data Trini rce(s) Supporting Document(s) CBC W/AUTOMATED DIFF [facility] COMPLETE BLOOD COUNT Leukocytes [#/volume] in Blood by Automated count 7.0 10^3/uL 4.2 - 1 1.0 [facility] Erythrocytes [#/volume] in Blood by Automated count 4.16 10^6/uL 4. 50 - 6.30 L [facility] Hemoglobin [Mass/volume] in Blood 12.1 g/dL 14.0 - 16.0 L [facility] Hematocrit [Volume Fraction] of Blood by Automated count 36.2 % 4 1.0 - 51.0 L [facility] Erythrocyte mean corpuscular volume [Entitic volume] by Auto mated count 87.0 fL 80.0 - 94.0 [facility] Erythrocyte mean corpuscular hemoglobin [Entitic mass] by Automated count 29.1 pg 27.0 - 34.0 [facility] Erythrocyte mean corpuscular hemoglobin concentration [Mass/volume] by Automated count 33.4 g/dL 31.0 - 36.0 [facility] Erythrocyte distribution width [Ratio] by Automated count 13.8 % 11.5 - 14.8 [facility] Platelets [#/volume] in Blood by Automated count 251 10^3/uL 150 - 45 0 [facility] Platelet mean volume [Entitic volume] in Blood by Automated count 9.7 fL 7.4 - 10.4 [facility] Neutrophils/100 leukocytes in Blood by Automated count 59.4 % 37. 0 - 80.0 [facility] Lymphocytes/100 leukocytes in Blood by Manual count 22.9 % 25.0 - 40.0 L [facility] Monocytes/100 leukocytes in Blood by Automated count 12.1 % 3.0 - 8.0 H [facility] Eosinophils/100 leukocytes in Blood by Automated count 4.9 % 0.0 - 7.0 [facility] Basophils/100 leukocytes in Blood by Automated count 0.3 % 0.0 - 2.0 [facility] %IG 0.4 % 0.0 - 0.0 H [facility] %NRBC 0.0 % 0.0 - 0.0 [facility] Neutrophils [#/volume] in Blood by Automated count 4.13 10^3/uL 2.00 - 6.90 [facility] Lymphocytes [#/volume] in Blood by Automated count 1.59 10^3/uL 0.60 - 3.40 [facility] Monocytes [#/volume] in Blood by Automated count 0.84 10^3/uL 0.00 - 0.90 [facility] Eosinophils [#/volume] in Blood by Automated count 0.34 10^3/uL 0.00 - 0.70 [facility] Basophils [#/volume] in Blood by Automated count 0.02 10^3/uL 0.00 - 0.20 [facility] #IG 0.03 10^3/uL 0.00 - 0.10 [facility] ospital #NRBC 0.00 10^3/uL 0.00 - 0.00 [facility] ospital MANUAL DIFF NOT INDICATED [facility] RBC MORPH NOT INDICATED [facility] ID Date Data Source [id number] 10/17/2019 11:14:00 AM EDT [facility] Name Value Range Interpretation Code Description Data Trini rce(s) Supporting Document(s) SARS-CoV-2, LORIE Not Detected Not Detected [facility] This test was developed and its performa nce characteristics determinedby [employer]. This test has not been FDA cleared [...] in this assay. ID Date Data Source [id number] 10/13/2019 07:35:00 AM EDT [facility] Name Value Range Interpretation Code Description Data Trini rce(s) Supporting Document(s) COMPREHENSIVE METABOLIC PANEL [facility] COMPREHENSIVE METABOLIC PANEL Sodium [Moles/volume] in Serum or Plasma 139 mEq/L 134 - 153 [facility] Potassium [Moles/volume] in Serum or Plasma 3.8 mEq/L 3.6 - 5.0 [facility] Chloride [Moles/volume] in Serum or Plasma 104 mEq/L 98 - 107 [facility] Carbon dioxide, total [Moles/volume] in Serum or Plasma 23 MEQ/L 22 - 30 [facility] Glucose [Mass/volume] in Serum or Plasma 96 MG/DL 65 - 110 [facility] BUN 6 MG/DL 7 - 21 [facility] Creatinine [Mass/volume] in Serum or Plasma 0.6 MG/DL 0.7 - 1.5 L [facility] BUN/CREAT 10 8 - 27 [facility] Protein [Mass/volume] in Serum or Plasma 6.7 G/DL 6.3 - 8.2 [facility] Albumin [Mass/volume] in Serum or Plasma 3.7 G/DL 3.9 - 5.0 L [facility] Globulin [Mass/volume] in Serum by calculation 3.0 GM/DL 2.4 - 3.2 [facility] A/G RATIO 1.2 0.8 - 2.0 [facility] Calcium [Mass/volume] in Serum or Plasma 8.3 MG/DL 8.4 - 10.2 L [facility] Bilirubin.total [Mass/volume] in Serum or Plasma <0.7 MG/DL 0.2 - 1.3 [facility] Alkaline phosphatase [Enzymatic activity/volume] in Serum or Plasma 99 U/L 38 - 126 [facility] Aspartate aminotransferase [Enzymatic activity/volume] in Serum or Plasma 26 U/L 5 - 40 [facility] Alanine aminotransferase [Enzymatic activity/volume] in Seru m or Plasma 19 U/L 7 - 56 [facility] Anion gap 3 in Serum or Plasma 12.0 mmol/L 8.0 - 16.0 [facility] AGE 58 yrs [facility] NON-AA GFR >60 mL/min [facility] ital AFR AMER GFR >60 mL/min [facility] Male GFR In terprentation [...] >32 mL/min Normal ID Date Data Source [id number] 10/13/2019 07:35:00 AM T [facility] Name Value Range Interpretation Code Description Data Trini rce(s) Supporting Document(s) Creatine kinase [Enzymatic activity/volume] in Serum or Plasma 9 51 U/L 30 - 170 H [facility] ID Date Data Source [id number] 10/13/2019 07:18:00 AM EDT [facility] Name Value Range Interpretation Code Description Data Trini rce(s) Supporting Document(s) CBC W/AUTOMATED DIFF [facility] COMPLETE BLOOD COUNT Leukocytes [#/volume] in Blood by Automated count 6.8 10^3/uL 4.2 - 1 1.0 [facility] Erythrocytes [#/volume] in Blood by Automated count 4.02 10^6/uL 4. 50 - 6.30 L [facility] Hemoglobin [Mass/volume] in Blood 11.6 g/dL 14.0 - 16.0 L [facility] Hematocrit [Volume Fraction] of Blood by Automated count 34.6 % 4 1.0 - 51.0 L [facility] Erythrocyte mean corpuscular volume [Entitic volume] by Auto mated count 86.1 fL 80.0 - 94.0 [facility] Erythrocyte mean corpuscular hemoglobin [Entitic mass] by Automated count 28.9 pg 27.0 - 34.0 [facility] Erythrocyte mean corpuscular hemoglobin concentration [Mass/volume] by Automated count 33.5 g/dL 31.0 - 36.0 [facility] Erythrocyte distribution width [Ratio] by Automated count 13.3 % 11.5 - 14.8 [facility] Platelets [#/volume] in Blood by Automated count 229 10^3/uL 150 - 45 0 [facility] Platelet mean volume [Entitic volume] in Blood by Automated count 9.7 fL 7.4 - 10.4 [facility] Neutrophils/100 leukocytes in Blood by Automated count 50.8 % 37. 0 - 80.0 [facility] Lymphocytes/100 leukocytes in Blood by Manual count 27.5 % 25.0 - 40.0 [facility] Monocytes/100 leukocytes in Blood by Automated count 16.3 % 3.0 - 8.0 H [facility] Eosinophils/100 leukocytes in Blood by Automated count 4.9 % 0.0 - 7.0 [facility] Basophils/100 leukocytes in Blood by Automated count 0.4 % 0.0 - 2.0 [facility] %IG 0.1 % 0.0 - 0.0 [facility] %NR[facility] 0.0 % 0.0 - 0.0 [facility] Neutrophils [#/volume] in Blood by Automated count 3.45 10^3/uL 2.00 - 6.90 [facility] Lymphocytes [#/volume] in Blood by Automated count 1.87 10^3/uL 0.60 - 3.40 [facility] Monocytes [#/volume] in Blood by Automated count 1.11 10^3/uL 0.00 - 0.90 H [facility] Eosinophils [#/volume] in Blood by Automated count 0.33 10^3/uL 0.00 - 0.70 [facility] Basophils [#/volume] in Blood by Automated count 0.03 10^3/uL 0.00 - 0.20 [facility] #IG 0.01 10^3/uL 0.00 - 0.10 [facility] #NRBC 0.00 10^3/uL 0.00 - 0.00 [facility] MANUAL DIFF SEE BELOW [facility] ital Segmented neutrophils/100 leukocytes in Blood by Manual count 53 % 37 - 80 [facility] %LYMPH 29 % 25 - 40 [facility] %MONO 13 % 3 - 8 [facility] %EOS 5 % 0 - 7 [facility] RBC MORPH NOT INDICATED [facility] spital ID Date Data Source [id number] 10/12/2019 08:24:00 AM EDT [facility] Name Value Range Interpretation Code Description Data Trini rce(s) Supporting Document(s) CBC W/AUTOMATED DIFF [facility] COMPLETE BLOOD COUNT Leukocytes [#/volume] in Blood by Automated count 7.9 10^3/uL 4.2 - 1 1.0 [facility] Erythrocytes [#/volume] in Blood by Automated count 3.74 10^6/uL 4. 50 - 6.30 L [facility] Hemoglobin [Mass/volume] in Blood 10.7 g/dL 14.0 - 16.0 L [facility] Hematocrit [Volume Fraction] of Blood by Automated count 32.4 % 4 1.0 - 51.0 L [facility] Erythrocyte mean corpuscular volume [Entitic volume] by Auto mated count 86.6 fL 80.0 - 94.0 [facility] Erythrocyte mean corpuscular hemoglobin [Entitic mass] by Automated count 28.6 pg 27.0 - 34.0 [facility] Erythrocyte mean corpuscular hemoglobin concentration [Mass/volume] by Automated count 33.0 g/dL 31.0 - 36.0 [facility] Erythrocyte distribution width [Ratio] by Automated count 13.7 % 11.5 - 14.8 [facility] Platelets [#/volume] in Blood by Automated count 207 10^3/uL 150 - 45 0 [facility] Platelet mean volume [Entitic volume] in Blood by Automated count 10.0 fL 7.4 - 10.4 [facility] Neutrophils/100 leukocytes in Blood by Automated count 53.2 % 37. 0 - 80.0 [facility] Lymphocytes/100 leukocytes in Blood by Manual count 28.8 % 25.0 - 40.0 [facility] Monocytes/100 leukocytes in Blood by Automated count 14.8 % 3.0 - 8.0 H [facility] Eosinophils/100 leukocytes in Blood by Automated count 2.8 % 0.0 - 7.0 [facility] 0.3 %IG 0.1 % 0.0 - 0.0 H [facility] %NRBC 0.0 % 0.0 - 0.0 [facility] Neutrophils [#/volume] in Blood by Automated count 4.23 10^3/uL 2.00 - 6.90 [facility] Lymphocytes [#/volume] in Blood by Automated count 2.28 10^3/uL 0.60 - 3.40 [facility] Monocytes [#/volume] in Blood by Automated count 1.17 10^3/uL 0.00 - 0.90 H [facility] Eosinophils [#/volume] in Blood by Automated count 0.22 10^3/uL 0.00 - 0.70 [facility] Basophils [#/volume] in Blood by Automated count 0.02 10^3/uL 0.00 - 0.20 [facility] #IG 0.01 10^3/uL 0.00 - 0.10 [facility] #NRBC 0.00 10^3/uL 0.00 - 0.00 [facility] ospital MANUAL DIFF SEE BELOW [facility] ital Segmented neutrophils/100 leukocytes in Blood by Manual count 51 % 37 - 80 [facility] %LYMPH 39 % 25 - 40 [facility] %MONO 5 % 3 - 8 [facility] %EOS 2 % 0 - 7 [facility] 3 RBC MORPH NOT INDICATED [facility] ID Date Data Source [id number] 10/12/2019 08:15:00 AM EDT [facility] Name Value Range Interpretation Code Description Data Trini rce(s) Supporting Document(s) BASIC METABOLIC PANEL [facility] BASIC METABOLIC PANEL Sodium [Moles/volume] in Serum or Plasma 139 mEq/L 134 - 153 [facility] Potassium [Moles/volume] in Serum or Plasma 3.8 mEq/L 3.6 - 5.0 [facility] Chloride [Moles/volume] in Serum or Plasma 106 mEq/L 98 - 107 [facility] Carbon dioxide, total [Moles/volume] in Serum or Plasma 23 MEQ/L 22 - 30 [facility] Glucose [Mass/volume] in Serum or Plasma 94 MG/DL 65 - 110 [facility] BUN 7 MG/DL 7 - 21 [facility] Creatinine [Mass/volume] in Serum or Plasma 0.6 MG/DL 0.7 - 1.5 L [facility] BUN/CREAT 12 8 - 27 [facility] Calcium [Mass/volume] in Serum or Plasma 8.4 MG/DL 8.4 - 10.2 [facility] Anion gap 3 in Serum or Plasma 10.0 mmol/L 8.0 - 16.0 [facility] AGE 58 yrs [facility] AFR AMER GFR >60 mL/min [facility] NON-AA GFR >60 mL/min [facility] ital Male GFR Inter prentation [...] >32 mL/min Normal ID Date Data Source [id number] 10/12/2019 08:15:00 AM EDT [facility] Name Value Range Interpretation Code Description Data Trini rce(s) Supporting Document(s) Creatine kinase [Enzymatic activity/volume] in Serum or Plasma 7 98 U/L 30 - 170 H [facility] ID Date Data Source [id number] 10/11/2019 03:46:00 PM EDT [facility] Name Value Range Interpretation Code Description Data Trini rce(s) Supporting Document(s) OCCULT BLOOD NEGATIVE NORMAL: NEGATIVE [facility] OCCULT BLOOD REENTER NEGATIVE NORMAL: NEGATIVE [facility] { HEMOCCULT LOT # [id number] ){ LOT EXP DATE 05.22 ){ PROCEDURAL CONTROL POS/NEG VALID ) ID Date Data Source [id number] 10/11/2019 03:44:00 PM EDT [facility] Name Value Range Interpretation Code Description Data Trini rce(s) Supporting Document(s) OCCULT BLOOD DIAGNOSTIC 3 SLIDES [facility] SPOKE WITH TABATHA. WILL REORDER{ DA TE COLLECTED{ DATE COLLECTED{ DATE COLLECTED{ HEMOCCULT LOT # ){ LOT EXP DATE ) CEDURAL CONTROL PO /NEG [facility] ID Date Data Source [id number] 10/11/2019 10:25:00 AM EDT [facility] Name Value Range Interpretation Code Description Data Trini rce(s) Supporting Document(s) [facility] R [facility] COLOR yellow NORMAL: Yellow [facility] CLARITY clear NORMAL: Clear [facility] Specific gravity of Urine by Test strip 1.015 1.001 - 1.030 [facility] pH 6 5 - 9 [facility] Glucose [Mass/volume] in Urine by Test strip NORM NORMAL: Negat [facility] Bilirubin.total [Presence] in Urine by Test strip NEG NORMAL: Negative [facility] Ketones [Presence] in Urine by Test strip NEG NORMAL: Negative [facility] Protein [Mass/volume] in Urine by Test strip 15 NORMAL: Negat [facility] Nitrite [Presence] in Urine by Test strip NEG NORMAL: Negative [facility] BLOOD 150 NORMAL: Negative [facility] Leukocyte esterase [Presence] in Urine by Test strip 500 JIMMY L: Negative [facility] Urobilinogen [Mass/volume] in Urine by Test strip NOR less arthur n 1.0 mg/dL [facility] MICROSCOPIC See Below [facility] WBC 5 - 7 NORMAL: NONE SEEN A [facility] Erythrocytes [#/volume] in Urine by Test strip 1 - 3 NORMAL: NON E SEEN [facility] Bacteria [Presence] in Urine sediment by Light microscopy Tr colt NORMAL: NONE SEEN [facility] Mucus [Presence] in Urine sediment by Light microscopy Trace NORMAL: NONE SEEN [facility] ID Date Data Source [id number] 10/11/2019 07:22:00 AM EDT [facility] Name Value Range Interpretation Code Description Data Trini rce(s) Supporting Document(s) CBC W/AUTOMATED DIFF [facility] COMPLETE BLOOD COUNT Leukocytes [#/volume] in Blood by Automated count 9.3 10^3/uL 4.2 - 1 1.0 [facility] Erythrocytes [#/volume] in Blood by Automated count 4.00 10^6/uL 4. 50 - 6.30 L [facility] Hemoglobin [Mass/volume] in Blood 11.6 g/dL 14.0 - 16.0 L [facility] Hematocrit [Volume Fraction] of Blood by Automated count 35.0 % 4 1.0 - 51.0 L [facility] Erythrocyte mean corpuscular volume [Entitic volume] by Auto mated count 87.5 fL 80.0 - 94.0 [facility] Erythrocyte mean corpuscular hemoglobin [Entitic mass] by Automated count 29.0 pg 27.0 - 34.0 [facility] Erythrocyte mean corpuscular hemoglobin concentration [Mass/volume] by Automated count 33.1 g/dL 31.0 - 36.0 [facility] Erythrocyte distribution width [Ratio] by Automated count 13.8 % 11.5 - 14.8 [facility] Platelets [#/volume] in Blood by Automated count 254 10^3/uL 150 - 45 0 [facility] Platelet mean volume [Entitic volume] in Blood by Automated count 10.6 fL 7.4 - 10.4 H [facility] Neutrophils/100 leukocytes in Blood by Automated count 60.7 % 37. 0 - 80.0 [facility] Lymphocytes/100 leukocytes in Blood by Manual count 22.2 % 25.0 - 40.0 L [facility] Monocytes/100 leukocytes in Blood by Automated count 15.6 % 3.0 - 8.0 H [facility] Eosinophils/100 leukocytes in Blood by Automated count 1.1 % 0.0 - 7.0 [facility] Basophils/100 leukocytes in Blood by Automated count 0.2 % 0.0 - 2.0 [facility] %IG 0.2 % 0.0 - 0.0 H [facility] %NRBC 0.0 % 0.0 - 0.0 [facility] Neutrophils [#/volume] in Blood by Automated count 5.66 10^3/uL 2.00 - 6.90 [facility] Lymphocytes [#/volume] in Blood by Automated count 2.07 10^3/uL 0.60 - 3.40 [facility] Monocytes [#/volume] in Blood by Automated count 1.45 10^3/uL 0.00 - 0.90 H [facility] Eosinophils [#/volume] in Blood by Automated count 0.10 10^3/uL 0.00 - 0.70 [facility] Basophils [#/volume] in Blood by Automated count 0.02 10^3/uL 0.00 - 0.20 [facility] #IG 0.02 10^3/uL 0.00 - 0.10 [facility] #NRBC 0.00 10^3/uL 0.00 - 0.00 [facility] MANUAL DIFF SEE BELOW [facility] ital Segmented neutrophils/100 leukocytes in Blood by Manual count 76 % 37 - 80 [facility] %LYMPH 12 % 25 - 40 L [facility] %MONO 10 % 3 - 8 [facility] %EOS 2 % 0 - 7 [facility] RBC MORPH NOT INDICATED [facility] ID Date Data Source [id number] 10/11/2019 06:36:00 AM EDT [facility] Name Value Range Interpretation Code Description Data Trini rce(s) Supporting Document(s) Creatine kinase [Enzymatic activity/volume] in Serum or Plas ma 1145 U/L 30 - 170 H [facility] ID Date Data Source [id number] 10/11/2019 06:36:00 AM EDT [facility] Name Value Range Interpretation Code Description Data Trini rce(s) Supporting Document(s) BASIC METABOLIC PANEL [facility] BASIC METABOLIC PANEL Sodium [Moles/volume] in Serum or Plasma 140 mEq/L 134 - 153 [facility] Potassium [Moles/volume] in Serum or Plasma 4.0 mEq/L 3.6 - 5.0 [facility] Chloride [Moles/volume] in Serum or Plasma 104 mEq/L 98 - 107 [facility] Carbon dioxide, total [Moles/volume] in Serum or Plasma 24 MEQ/L 22 - 30 [facility] Glucose [Mass/volume] in Serum or Plasma 89 MG/DL 65 - 110 [facility] BUN 8 MG/DL 7 - 21 [facility] Creatinine [Mass/volume] in Serum or Plasma 0.7 MG/DL 0.7 - 1.5 [facility] BUN/CREAT 11 8 - 27 [facility] Calcium [Mass/volume] in Serum or Plasma 8.8 MG/DL 8.4 - 10.2 [facility] Anion gap 3 in Serum or Plasma 12.0 mmol/L 8.0 - 16.0 [facility] AGE 58 [facility]rs [facility] GFR >60 mL/min [facility] NON-AA GFR >60 mL/min [facility] ital Male GFR Inter prentation [...] >32 mL/min Normal ID Date Data Source [id number] 10/09/2019 07:15:00 PM EDT [facility] 1 [facility]Sheet [facility] [address] [place] [address] Phone #: [phone] 10/09/2019 19:00 Patient: [...] STAT 19:30 10/09/2019 19:32 Devika, 2 OrderSheet [facility] [address] [place] [address] Phone #: [phone] 10/09/2019 19:00 Patient: NKECHI OSPINA [facility]#: [id number] Sex: M : 1960 Age: [id number] X2 (Sched Reese Collado R.N.19:40 10/09/2019) Physician;DIAGNOSTIC STUDY ORDERSOrder Description Priority Entered Acknowledged InitialedCT Head W/O Cont STAT 19:30 10/09/2019 19:33 Sorbero,(Oxygen?(No)) Reese Collado R.N. Physician; Reason for Study: Head Injury, Head Pain, HeadacheCT Chest W/O Cont STAT 19:30 10/09/2019 19:33 Sorbero,(Oxygen?(No)) Reese Collado R.N. Physician; Reason for Study: Cough, FeverCT ABD PEL W/O STAT 19:30 10/09/2019 19:33 Sorbero,Oral W/O IV Reese Collado R.N.Contrast Physician;(Oxygen?(No))(IV?(Yes)) Reason for Study: Abdominal Pain, VomitingMEDICATION/IV/DRIP/FLUID ORDERSOrder Description Priority Entered Acknowledged InitialedIV NS : Bolus 1000 19:31 10/09/2019 19:54 Sorbero,mL, then 125 mL/hr Reese Collado R.N.(can be titrated per Physician;additionalphysicianinstruction)Zofran 4 mg IVP X 1 19:31 10/09/2019 19:53 Sorbero,dose: 4 mg (NOW Reese Collado R.N.x1) Physician;Rocephin 22:23 10/09/2019 22:43 Joana,(1gm/50mL) IVPB Reese Laughlin R.NKyra1000 mg with Physician;Dextrose 50 mlspike bag (D5W)Protonix IVPB 40 22:24 10/09/2019 23:38 Joana,mg with Dextrose Reese Laughlin R.N.100 ml spike bag Physician;(D5W)GENERAL ORDERSOrder Description Priority Entered Acknowledged Initialed 3 OrderSheet [facility] Department [address] [place] [address] Phone #: ext- [phone] 10/09/2019 19:00 Patient: NKECHI OSPINA Sex: M : 1960 Age: 58yAccucheck 19:31 10/09/2019 20:11 Reese Fortune R.N. Physician;EKG 19:10/09/2019 20:11 Reese Fortune R.N. Physician;Pulse oximeter 19:31 10/09/2019 19:33 Devika,(Spot Check) Reese Collado R.N. Physician;Saline Lock 19:10/09/2019 19:48 Reese Fortune R.N. Physician;Oxygen titrate to 19:31 10/09/2019 19:33 Devika,92% Reese Collado R.N. Physician;Franks Catheter 22:22 10/09/2019 23:21 Ale Kilo Reese Bronson R.N. Physician;[Electronically signed by Qian Bernard R.N. (02:19 10/10/2019)][Electronically signed by Reese Landers Physician (05:43 10/10/2019)][Electronically locked by Qian Bernard R.N. (02:19 10/10/2019)] Name Value Range Interpretation Code Description Data Trini rce(s) Supporting Document(s) ID Date Data Source [id number] 10/09/2019 07:15:00 PM EDT [facility] 1 Medication Reconciliation Report [facility] Department [address] [place] [address] Phone #: ext- [phone] 10/09/2019 19:00 Patient: [...] Home Medication information: 2 Medication Reconciliation Report [facility] Department [address] [place] [address] Phone #: ext- [phone] 10/09/2019 19:00 Patient: NKECHI OSPINA Sex: M : 1960 Age: 58ypatient's jail recordThe following Medications were given to the [...] rce(s) Supporting Document(s) ID Date Data Source [id number] 10/09/2019 07:15:00 PM EDT [facility] 1 Medication Administration Record [facility] [address] [place] [address] Phone #: ext- [phone] 10/09/2019 19:00 Patient: NKECHI OSPINA Sex: M : 1960 Age: 58yWeight: 66.2 kgHeight/Length: 64 inBMI: 25.1ALLERGIES: None Date/Time Medication Administered Medication OrderedStart IV NS IV NS : Bolus 1000 mL, then 04951:54 10/09/2019 Dose: IV Fluids mL/hr (can be titrated Tobias Amin, R.N. Rate: 1000 mL/hr over 1 hour(s) additional physician instruction)---- Dispensed: 1000 mL bagStop Site: #1 left AC21:21 10/09/2019SoTobias iglesias R.NKyraStart IV NS IV NS : Bolus 1000 mL, then 94685:24 10/09/2019 Dose: IV Fluids mL/hr (can be titrated Tobias Amin, R.N. Rate: 125 mL/hr over 8 hour(s) additional physician instruction)---- Dispensed: 1000 mL bagStop Site: #1 left AC01:00 10/10/2019Qian Bernard R.AlliGiven ZOFRAN [IVP] (ONDANSETRON HCL) Zofran 4 mg IVP X 1 dose: 4 mg19:53 10/09/2019 Dose: 4 mg IVP (NOW x1)Tobias Fortune R.N. Site: #1 left ACStart ROCEPHIN (1GM/50ML) [IVPB] Rocephin (1gm/50mL) IVPB 539803:43 10/09/2019 (CEFTRIAXONE SODIUM) mg with Dextrose 50 [...] rce(s) Supporting Document(s) ID Date Data Source [id number] 10/09/2019 07:15:00 PM EDT [facility] 1 General Instructions [facility] Department [address] [place] [address] Phone #: ext- [phone] 10/09/2019 19:00 Patient: NKECHI OSPINA Sex: M : 1960 Age: 58yBronchopneumonia. No hypoxemia or respiratory failure.Acute urinary tract infection with cystitis. No hematuria. Not associated with indwelling catheter orobstruction.(Electronically signed by Reese Landers, Physician 10/10/2019 05:43) Name Value Range Interpretation Code Description Data Trini rce(s) Supporting Document(s) ID Date Data Source [id number] 10/09/2019 07:15:00 PM EDT [facility] 1 Clinical Report - Nurses [facility] [address] [place] [address] Phone #: [phone]- [phone] 10/09/2019 19:00 Patient: NKECHI OSPINA Sex: M : 1960 Age: 58yTRIAGEArrived by private vehicle. 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 Accompanied by advanced manufacturing engineer. [facility] vomiting x1 and lethargy that started today. advanced manufacturing engineer says emesis was black).Triage time: 19:06 10/09/2019. Acuity: LEVEL 3.Chief Complaint: FEVER and "NOT FEELING WELL".Alert. 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 (at 5pm).SEPSIS SCREEN: SIRS Screen negative. Sepsis Screen negative. No suspected or confirmed signs ofinfection present. --19:21 10/09/19 Lakisha Harris RN19:06 10/09/19. BP: 137/102. MAP: 113. HR: 114. RR: 18. O2 saturation: 98%. Temp: 99.3 F. Pain levelnow unable to obtain due to patient condition: unce rtain. --19:21 10/09/19 Lakisha Harris, DEREJE.Weight: 66.2 kg measured. Height/Length: 64 inches Estimated. BMI: 25.1. --19:09 10/09/19 Lakisha Harris,DEREJE.MedicationsSenna Oral (Tablet 8.6 mg) 2 tablets, at bedtime. --19:12 10/09/19 Lakisha Harris RN PHENobarbital Oral (Tablet 32.4 mg), 3x a day. --19:13 10/09/19 Lakisha Harrsi RN Ditropan XL Oral 5 mg, daily. [...] Harris RN. 2 Clinical Report - Nurses [facility] [address] [place] [address] Phone #: ext- [phone] 10/09/2019 19:00 Patient: NKECHI OSPINA Sex: M : 1960 Age: 58yPROBLEMS:MRSA.Urinary Incontinence.Osteoporosis.Legal blindness.Cerebral Palsy.Constipation.Seizure Disorder.Hypertension.Intellectual functioning disability. --19:20 10/09/19 Lakisha Harris RN.Medication/allergy information source: the patient's jail record. --19:21 10/09/19 Lakisha Harris RN.ADDITIONAL SURGERIES:no known surgeries.HistorySOCIAL HX: [...] risk assessment completed. No skin integrity riskidentified. --19:21 10/09/19 Lakisha Harris RN.PHYSICAL ASSESSMENT 3 Clinical Report - Nurses [facility] [address] [place] [address] Phone #: ext- [phone] 10/09/2019 19:00 Patient: [...] to CT by stretcher with nurse and electronics engineering technologist. --20:29 10/09/19 Tobias Fortune R.N. 20:36 10/09/19. Patient returned from CT by stretcher with electronics engineering technologist. --20:51 10/09/19 Tobias Fortune R.N. Critical value relayed by (21:17 10/09/2019). Critical value received by [facility]. Lactate level: 2.2. Critical value read [...] feels better. 4 Clinical Report - Nurses [facility] [address] [place] [address] Phone #: ext- [phone] 10/09/2019 19:00 Patient: NKECHI OSPINA Sex: M [...] of allergic reaction and precautions. Verbalizesunderstanding. --21:24 8/23/20 Tobias Fortune R.N.22:16 10/09/19. Reassurance given. Reassessment [...] position. Brakes of bed on. --22:16 10/09/19 Tobais Fortune R.N.16 fr urinary catheter placed in ED. Reason [...] Bernard R.N. 5 Clinical Report - Nurses [facility] [address] [place] [address] Phone #: ext- [phone] 10/09/2019 19:00 Patient: NKECHI OSPINA Sex: M [...] --01:40 10/10/19 Qian Bernard R.N. Departure time: 01:03 10/10/2019. Condition at departure: improved. No learning barriers present. Discharge instructions provided and reviewed with the patient. Reviewed referrals. Patient verbalized understanding. Written instructions provided in Spanish. The patient was discharged home. He left ambulatory and via private vehicle. --01:03 10/10/19 Qian Bernard R.N. Charted On Wrong Patient --01:10/10/19 Qian Bernard R.N. 01:00 10/10/19. BP: 147/88. [...] Temp: 100 F. Pain le parth now 0/10. --02:14 10/10/19 Qian Bernard R.N. 6 Clinical Report - Nurses [facility] [address] [place] [address] Phone #: ext- [phone] 10/09/2019 19:00 Patient: NKECHI OSPINA Sex: M : 1960 Age: 58yLocked/Released at 10/10/2019 02:19 by Qian Bernard R.N. Name Value Range Interpretation Code Description Data Trini rce(s) Supporting Document(s) ID Date Data Source [id number] 10/09/2019 07:15:00 PM EDT [facility] 1 Clinical Report - Physicians/Mid Levels [facility] [address] [place] [address] Phone #: ext- [phone] 10/09/2019 19:00 Patient: [...] 99.3 2 Clinical Report - Physicians/Mid Levels [facility] [address] [place] [address] Phone #: ext- [phone] 10/09/2019 19:00 Patient: NKECHI OSPINA Sex: M [...] process. Urinalysis: (SABRINA: 10/09/2019 22:30) ( [facility] 10/09/2019 22:37) Final results Test Result Flag [...] NONE Troponin-T: (SABRINA: 10/09/2019 19:45) ( [facility] 10/09/2019 20:24) Final results Test Result Flag Units (Reference) TROPONIN T <0.01 NG/ML (0.00 - 0.10) TROPONIN T0.1 ng/ml Recommended as the clinical threshold value forTroponin T. 3 Clinical Report - Physicians/Mid Levels [facility] [address] [place] [address] Phone #: ext- [phone] 10/09/2019 19:00 [id number] Sex: M : 1960 Age: 58yBNP: (SABRINA: [...] 2.0) 4 Clinical Report - Physicians/Mid Levels [facility] [address] [place] [address] Phone #: ext- [phone] 10/09/2019 19:00 Patient: NKECHI OSPINA Sex: M [...] Male GFR Interprentation 20-49 yrs >60 mL/min Tqukrq25-28 yrs >56 mL/min Normal 60-69 yrs >49 mL/min Normal 70-79yrs>42 mL/min Normal 80 and above >35 mL/min Normal Female GFRInterpretation 20-39 yrs >60 mL/min Normal 40-49 yrs >58 mL/minNormal 50-59 yrs >51 mL/min Normal 60-69 yrs >45 mL/min Ihwpbi89-63 yrs >39 mL/min Normal 80 and above [...] LACTIC ACID (LACTATE) RESULTS CALLED TO ALE [phone] [id number] [place] [address] CLIA# [id number] SEE SCANNED REPORTLipase: (SABRINA: 10/09/2019 19:45) ( MsgRcvd 10/09/2019 20:24) Final results Test Result Flag Units (Reference) LIPASE 11 L U/L (13 - 60)CT Head W/O Cont: (SABRINA: 10/09/2019 19:30) ( MsgRcvd 10/09/2019 21:13) Final resultsCT HEAD W/O CONTRASTReason(s): Head InjuryTRANSPORTATION: S IV? O2? Oxygen?(No) Room: ED Exam CT HEAD W/[place] [address] ---------NAME--------- NUMBER SEX AGE ADMIT DISC. XRAY# F/C TYPE ANAI ARBOLEDA [id number] M 58 10/09/19 20 7708 MB4 E/R DATE OF : 1960 M/R# [id number] PH#: [phone] TR-1B LOCATION: EMERGENCY DEPT TRANSCRIBED: 10/09/19 21:[address] HEAD W/O CONTRAST [id number] COMPLETED:10/09/19 21:13 yaritza [id number] Reason(s): Head Injury Head Pain Headache PHYSICIAN: LEESA BR 5 Clinical Report - Physicians/Mid Levels [facility] [address] [place] [address] Phone #: ext- [phone] 10/09/2019 19:00 Patient: NKECHI OSPINA Sex: M : 1960 Age: 58y R [...] 21:12 6 Clinical Report - Physicians/Mid Levels [facility] [address] [place] [address] Phone #: ext- [phone] 10/09/2019 19:00 Patient: NKECHI OSPINA Sex: M : 1960 Age: 58yCT Chest W/O Cont: (SABRINA: 10/09/2019 19:30) ( MsgRcvd 10/09/2019 21:41) Final resultsCT THORAX W/O CONTRASTReason(s): CoughTRANSPORTATION: S IV? O2? Oxygen?(No) Room: ED Exam CT THORAX W/[place] [address] ---------NAME--------- NUMBER SEX AGE ADMIT DISC. XRAY# F/C TYPE ANAI ARBOLEDA [id number] M 58 10/09/19 [id number] MB4 E/R DATE OF : 1960 M/R# [id number] #: [id number] TR-1B LOCATION: EMERGENCY DEPT TRANSCRIBED: 10/09/19 21:[address] THORAX W/O CONTRAST [id number] COMPLETED:10/09/19 21:41 yaritza [id number] Reason(s): Cough Fever PHYSICIAN: LEESA BR R [...] was 7 Clinical Report - Physicians/Mid Levels [facility] [address] [place] [address] Phone #: ext- [phone] 10/09/2019 19:00 Patient: NKECHI OSPINA Sex: M : 1960 Age: 58y accomplished utilizing automated exposure control, adjusting of the mA and kV based on the patient's body size and/or the use of imperative reconstructive techniques. Electronically Signed By: Jacob Mir M.D. , Radiologist Date/Time: 10/09/19 21:40CT ABD PEL W/O Oral W/O IV Contrast: (ASBRINA: 10/09/2019 19:30) ( MsgRcvd 10/09/2019 21:51)Final resultsCT ABDReason(s): Abdominal PainTRANSPORTATION: S IV? IV?(Yes) O2? Oxygen?(No) Ro Exam CT ABD //T// PELV W/O ORAL W/O IV [address] [place] [address] ---------NAME--------- NUMBER SEX AGE ADMIT DISC. XRAY# F/C TYPE RIPPLE NKECHI [id number] M 58 10/09/19 [id number] MB4 E/R DATE OF : 1960 M/R# [id number] PH#: [phone] TR-1B LOCATION: EMERGENCY DEPT TRANSCRIBED: 10/09/19 21:[address] ABD //T// PELV W/[place] ORAL W/[place] [id number] COMPLETED:10/09/19 21:51 yaritza [id number] Reason(s): Abdominal Pain Vomiting PHYSICIAN: LEESA BR [...] evident. PANCREAS: Unremarkable. 8 Clinical Report - Physicians/Mid Levels [facility] [address] [place] [address] Phone #: ext- [phone] 10/09/2019 19:00 -------- Patient: NKECHI OSPINA Sex: [...] of corpus callosum.).PROGRESS AND PROCEDURESCourse of Care: 22:24 Oct 09 2019. Patient is stable. 22:24 Oct 09 2019. Pt. 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 He will get ABX and fluid IV and he will need [facility] personnel at bedside at all times to advocate for him. I will call Dr. Reilly (Hospitalist) now for admission. Critical care performed (130 minutes). Time is exclusive of separately billable procedures. Time includes: direct patient care, patient reassessment, coordination of patient care, interpretation of data (laboratory 9 Clinical Report - Physicians/Mid Levels [facility] [address] [place] [address] Phone #: ext- [phone] 10/09/2019 19:00 Patient: [...] rce(s) Supporting Document(s) ID Date Data Source [id number] 10/10/2019 07:41:00 AM EDT [facility] Name Value Range Interpretation Code Description Data Trini rce(s) Supporting Document(s) CBC W/AUTOMATED DIFF [facility] COMPLETE BLOOD COUNT Leukocytes [#/volume] in Blood by Automated count 11.6 10^3/uL 4.2 - 11.0 H [facility] Erythrocytes [#/volume] in Blood by Automated count 3.76 10^6/uL 4. 50 - 6.30 L [facility] Hemoglobin [Mass/volume] in Blood 10.9 g/dL 14.0 - 16.0 L [facility] Hematocrit [Volume Fraction] of Blood by Automated count 32.9 % 4 1.0 - 51.0 L [facility] Erythrocyte mean corpuscular volume [Entitic volume] by Auto mated count 87.5 fL 80.0 - 94.0 [facility] Erythrocyte mean corpuscular hemoglobin [Entitic mass] by Automated count 29.0 pg 27.0 - 34.0 [facility] Erythrocyte mean corpuscular hemoglobin concentration [Mass/volume] by Automated count 33.1 g/dL 31.0 - 36.0 [facility] Erythrocyte distribution width [Ratio] by Automated count 13.7 % 11.5 - 14.8 [facility] Platelets [#/volume] in Blood by Automated count 247 10^3/uL 150 - 45 0 [facility] Platelet mean volume [Entitic volume] in Blood by Automated count 10.5 fL 7.4 - 10.4 H [facility] Neutrophils/100 leukocytes in Blood by Automated count 66.8 % 37. 0 - 80.0 [facility] Lymphocytes/100 leukocytes in Blood by Manual count 21.9 % 25.0 - 40.0 L [facility] Monocytes/100 leukocytes in Blood by Automated count 10.6 % 3.0 - 8.0 H [facility] Eosinophils/100 leukocytes in Blood by Automated count 0.2 % 0.0 - 7.0 [facility] Basophils/100 leukocytes in Blood by Automated count 0.2 % 0.0 - 2.0 [facility] %IG 0.3 % 0.0 - 0.0 [facility] %NRBC 0.0 % 0.0 - 0.0 [facility] Neutrophils [#/volume] in Blood by Automated count 7.74 10^3/uL 2.00 - 6.90 H [facility] Lymphocytes [#/volume] in Blood by Automated count 2.54 10^3/uL 0.60 - 3.40 [facility] Monocytes [#/volume] in Blood by Automated count 1.23 10^3/uL 0.00 - 0.90 H [facility] Eosinophils [#/volume] in Blood by Automated count 0.02 10^3/uL 0.00 - 0.70 [facility] Basophils [#/volume] in Blood by Automated count 0.02 10^3/uL 0.00 - 0.20 [facility] #IG 0.03 10^3/uL 0.00 - 0.10 [facility] #NRBC 0.00 10^3/uL 0.00 - 0.00 [facility]spital MANUAL DIFF SEE BELOW [facility] ital Segmented neutrophils/100 leukocytes in Blood by Manual count 75 % 37 - 80 [facility] %LYMPH 18 % 25 - 40 L [facility] %MONO 6 % 3 - 8 [facility] %EOS 1 % 0 - 7 [facility] RBC MORPH NOT INDICATED [facility] ID Date Data Source [id number] 10/10/2019 07:17:00 AM EDT [facility] Name Value Range Interpretation Code Description Data Trini rce(s) Supporting Document(s) Creatine kinase [Enzymatic activity/volume] in Serum or Plas ma 1461 U/L 30 - 170 H [facility] ID Date Data Source [id number] 10/10/2019 07:17:00 AM EDT [facility] Name Value Range Interpretation Code Description Data Trini rce(s) Supporting Document(s) COMPREHENSIVE METABOLIC PANEL [facility] COMPREHENSIVE METABOLIC PANEL Sodium [Moles/volume] in Serum or Plasma 139 mEq/L 134 - 153 [facility] Potassium [Moles/volume] in Serum or Plasma 3.5 mEq/L 3.6 - 5.0 L [facility] Chloride [Moles/volume] in Serum or Plasma 104 mEq/L 98 - 107 [facility] Carbon dioxide, total [Moles/volume] in Serum or Plasma 24 MEQ/L 22 - 30 [facility] Glucose [Mass/volume] in Serum or Plasma 89 MG/DL 65 - 110 [facility] BUN 16 MG/DL 7 - 21 [facility] Creatinine [Mass/volume] in Serum or Plasma 0.8 MG/DL 0.7 - 1.5 [facility] BUN/CREAT 20 8 - 27 [facility] Protein [Mass/volume] in Serum or Plasma 6.3 G/DL 6.3 - 8.2 [facility] Albumin [Mass/volume] in Serum or Plasma 3.5 G/DL 3.9 - 5.0 L [facility] Globulin [Mass/volume] in Serum by calculation 2.8 GM/DL 2.4 - 3.2 [facility] A/G RATIO 1.3 0.8 - 2.0 [facility] Calcium [Mass/volume] in Serum or Plasma 8.0 MG/DL 8.4 - 10.2 L [facility] Bilirubin.total [Mass/volume] in Serum or Plasma <0.7 MG/DL 0.2 - 1.3 [facility] Alkaline phosphatase [Enzymatic activity/volume] in Serum or Plasma 92 U/L 38 - 126 [facility] Aspartate aminotransferase [Enzymatic activity/volume] in Serum or Plasma 26 U/L 5 - 40 [facility] Alanine aminotransferase [Enzymatic activity/volume] in Seru m or Plasma 15 U/L 7 - 56 [facility] Anion gap 3 in Serum or Plasma 11.0 mmol/L 8.0 - 16.0 [facility] AGE 58 yrs [facility] NON-AA GFR >60 mL/min [facility] ital AFR AMER GFR >60 mL/min [facility] Male GFR In terprentation [...] >32 mL/min Normal ID Date Data Source [id number] 10/10/2019 07:16:00 AM EDT [facility] Name Value Range Interpretation Code Description Data Trini rce(s) Supporting Document(s) TROPONIN T <0.01 NG/ML 0.00 - 0.10 [facility]spital TROPONIN T0.1 ng/ml Recommended as the c linical threshold value forTroponin T. ID Date Data Source [id number] 10/10/2019 01:14:00 AM EDT [facility] [address] [place] [address] ---------NAME--------- NUMBER SEX AGE ADMIT DISC. XRAY# F/C TYPE RIPPLE NKECHI [id number] M 58 10/09/19 [id number] MB4 O/P DATE OF : 1960 M/R# [id number] #: [id number] LOCATION: EMERGENCY DEPT TRANSCRIBED: 10/10/19 1:[address] CTA CHEST NON-CORONARY W [id number] COMPLETED:10/10/19 1:15 yaritza [id number] {REASON FOR EXAM: eLEVATED d-DIMER PHYSICIAN: ISAEL HERNÁNDEZ== R A D I O L O G Y R E P O R T =====PATIENT HISTORY:Elevated D-Dimer. Accumulated DLP-522.2 mGy, Estimated DLP- 502.6 mGy*cm. FIR853,75mL, [id number], 01/07. BUN-24, Createnine-1.2, GFR >60. Male.Time Out performed. Correct patient with 2 identifiers, type and amount ofcontrast used, correct body part and side all verified prior to examination. - RLB / LUNG (DICOM Hx)EXAM: CTA Chest with Intravenous Contrast for PE evaluationCLINICAL HISTORY: Elevated D-Dimer. Accumulated DLP-522.2 mGy, EstimatedDLP-502.6 mGy*cm. DGR112, 75mL, [id number], 01/07. BUN-24, Createnine-1.2, GFR >60.Male. Time Out performed. Correct patient with 2 identifiers, type and amountof contrast used, correct body part and side all verified prior to examination.- RLBTECHNIQUE: Axial CTA images of the chest with intravenous contrast using apulmonary embolism protocol. Multiplanar reconstructed images were created andreviewed.CONTRAST: With; JVD815, 75mL. was administered without incident.COMPARISON: None provided.FINDINGS:PULMONARY [...] rce(s) Supporting Document(s) ID Date Data Source [id number] 10/13/2019 03:08:00 PM EDT [facility] Name Value Range Interpretation Code Description Data Trini rce(s) Supporting Document(s) CULTURE URINE [facility] _CULTURE URINE_$$[id number]$$531544$$878911$$366325$$546208$$636899$$020829$$059968$$115014$$ 414595$$137363$$322095$$002904$$209823$$671546$$969197$$839943$$323481$$258659$$ 194075$$710164$$042849$$908026$$346996$$223017$$592640$$406232 -- Continued on next page --Patient: ANAI ARBOLEDA Order: [id number] Page 2Culture: CULTURE URINE Status: Final ==== -- Continued on next page --[facility] Order: [id number] Page 2Culture: CULTURE URINE Status: Prelim =====$$[id number]$$[id number] DATE/TIME: 10/13/2019 10:06Culture: CULTURE URINE Status: FinalIsolate [...] 10/12/2019 03:27 ET Gram negative rodsUrine Culture,Comprehensive: [id number] coli Flag: APatient: MIGUELCASI ARBOLEDA Order: [id number] Page 3Culture: CULTURE URINE Status: Final ISOLATE [...] S S . . . . . .55473-8Ondnvpetbt S S . . . . . .267-5Imipenem S S . . . . . .279-0Levofloxacin S S . . . . . .08039-5Jhmhjgptc S S . . . . . .6652- 2Nitrofurantoin S S . . . . . .363-2Piperacillin/Tazobactam S S . . . . . .412-7Tetracycline S S . . . . . .496-0Tobramycin S S . . . . . .508-2Trimethoprim/Sulfa S S . . . . . .516-5P1 Test performed by: [facility] MARIELLA #: [id number] [address] [place] [address] [id number] [facility] [id number] Director : Emeterio Gregory MD NPI #:Elastic Assembler : 10/12/19.0911.XMT.SENT REF 10/13/19.1508.XMT.SENT REF ID Date Data Source [id number] 10/09/2019 10:37:00 PM EDT [facility] Name Value Range Interpretation Code Description Data Trini rce(s) Supporting Document(s) URINALYSIS [facility] alejandro URINALYSIS SOURCE R [facility] COLOR yellow NORMAL: Yellow [facility] CLARITY cloudy NORMAL: Clear [facility] Specific gravity of Urine by Test strip 1.010 1.001 - 1.030 [facility] pH 7 5 - 9 [facility] Glucose [Mass/volume] in Urine by Test strip NORM NORMAL: Negat [facility] Bilirubin.total [Presence] in Urine by Test strip NEG NORMAL: Negative [facility] Ketones [Presence] in Urine by Test strip NEG NORMAL: Negative [facility] Protein [Mass/volume] in Urine by Test strip NEG NORMAL[facility] Nitrite [Presence] in Urine by Test strip POS NORMAL: Negative [facility] BLOOD 10 NORMAL: Negative [facility] Leukocyte esterase [Presence] in Urine by Test strip 500 JIMMY L: Negative [facility] Urobilinogen [Mass/volume] in Urine by Test strip NOR less arthur n 1.0 mg/dL [facility] MICROSCOPIC See Below [facility] ital WBC 7 - 10 NORMAL: NONE SEEN A [facility] Erythrocytes [#/volume] in Urine by Test strip 3 - 5 NORMAL: NON E SEEN [facility] EPITHELIAL MODERATE NORMAL: NONE SEEN A [facility] Bacteria [Presence] in Urine sediment by Light microscopy 2+ MOD NORMAL: NONE SEEN A [facility] ID Date Data Source [id number] 10/09/2019 09:50:00 PM EDT [facility] [address] [place] [address] ---------NAME--------- NUMBER SEX AGE ADMIT DISC. XRAY# F/C TYPE RIPPLE NKECHI [id number] M 58 10/09/19 [id number] [id number] E/R DATE OF : 1960 M/R# [id number] #: [id number] TR-1B LOCATION: EMERGENCY DEPT TRANSCRIBED: 10/09/19 21:[address] ABD //T// PELV W/[place] ORAL W/[place] [id number] COMPLETED:10/09/19 21:51 yaritza [id number] Reason(s): Abdominal Pain Vomiting PHYSICIAN: LEESA BR [...] rce(s) Supporting Document(s) ID Date Data Source [id number] 10/09/2019 09:40:00 [place] [address] ---------NAME--------- NUMBER SEX AGE ADMIT DISC. XRAY# F/C TYPE RIPPLE NKECHI [id number] M 58 10/09/19 [id number] MB4 E/R DATE OF : 1960 M/R# [id number] #: [id number] TR-1B LOCATION: EMERGENCY DEPT TRANSCRIBED: 10/09/19 21:[address] THORAX W/O CONTRAST [id number] COMPLETED:10/09/19 21:41 yaritza [id number] Reason(s): Cough Fever PHYSICIAN: LEESA BR R [...] rce(s) Supporting Document(s) ID Date Data Source [id number] 10/09/2019 09:12:00 PM EDT [address] [address] ---------NAME--------- NUMBER SEX AGE ADMIT DISC. XRAY# F/C TYPE RIPPLE NKECHI [id number] M 58 10/09/19 [id number] MB4 E/R DATE OF : 1960 M/R# [id number] #: [id number] TR-1B LOCATION: EMERGENCY DEPT TRANSCRIBED: 10/09/19 21:[address] HEAD W/O CONTRAST [id number] COMPLETED:10/09/19 21:13 yaritza [id number] Reason(s): Head Injury Head Pain Headache PHYSICIAN: [...] rce(s) Supporting Document(s) ID Date Data Source [id number] 10/17/2019 10:31:00 AM EDT [facility] Name Value Range Interpretation Code Description Data Trini rce(s) Supporting Document(s) CULTURE BLOOD [facility] spital _CULTURE BLOOD_{ PRELIM TEST PERFORMED AT [address] [address] CLIA# [id number] SEE SCANNED REPORT ID Date Data Source [id number] 10/12/2019 09:45:00 AM EDT [facility] ANAEROBIC [id number] TO LIVE ([facility] RESULT READBACK.The [employer] BCID Panel is a qualitative multiplexednucleic acid-based [...] rce(s) Supporting Document(s) ID Date Data Source [id number] 10/09/2019 09:11:00 PM EDT [facility] Name Value Range Interpretation Code Description Data Trini rce(s) Supporting Document(s) Lactic w Rfx (if elevated) 2.2 mmol/L 0.5-2.2 N [facility] Called to FRANCESCA ([facility]) @ 2110 by Beatriz Houston. Results readback. ID Date Data Source [id number] 10/16/2019 12:24:00 PM EDT [facility] Name Value Range Interpretation Code Description Data Trini rce(s) Supporting Document(s) CULTURE BLOOD [facility] spital _CULTURE BLOOD_{ PRELIM GROWTH OF GRAM POSITIVE COCCI IN CLUSTERSGROWTH OF STAPH SPECIESREPORT TAKEN TO FLOOR 10/11/19 0800 CM TEST PERFORMED AT [address] [address] CLIA# [id number] SEE SCANNED REPORT ID Date Data Source [id number] 10/09/2019 10:04:00 PM EDT [facility] Name Value Range Interpretation Code Description Data Trini rce(s) Supporting Document(s) LACTIC ACID (LACTATE) [facility] RESULTS CALLED TO ALE 0197 [id number] [place] [address] CLIA# [id number] SEE SCANNED REPORT ID Date Data Source [id number] 10/09/2019 09:02:00 PM EDT [facility] Name Value Range Interpretation Code Description Data Trini rce(s) Supporting Document(s) Fibrin D-dimer FEU [Mass/volume] in Platelet poor plasma 0.85 ug /mL 0.27 - 0.50 H [facility] ID Date Data Source [id number] 10/09/2019 08:28:00 PM EDT [facility] Name Value Range Interpretation Code Description Data Trini rce(s) Supporting Document(s) CBC W/AUTOMATED DIFF [facility] COMPLETE BLOOD COUNT Leukocytes [#/volume] in Blood by Automated count 21.5 10^3/uL 4.2 - 11.0 H [facility] Erythrocytes [#/volume] in Blood by Automated count 4.55 10^6/uL 4. 50 - 6.30 [facility] Hemoglobin [Mass/volume] in Blood 13.1 g/dL 14.0 - 16.0 L [facility] Hematocrit [Volume Fraction] of Blood by Automated count 39.5 % 4 1.0 - 51.0 L [facility] Erythrocyte mean corpuscular volume [Entitic volume] by Auto mated count 86.8 fL 80.0 - 94.0 [facility] Erythrocyte mean corpuscular hemoglobin [Entitic mass] by Automated count 28.8 pg 27.0 - 34.0 [facility] Erythrocyte mean corpuscular hemoglobin concentration [Mass/volume] by Automated count 33.2 g/dL 31.0 - 36.0 [facility] Erythrocyte distribution width [Ratio] by Automated count 13.9 % 11.5 - 14.8 [facility] Platelets [#/volume] in Blood by Automated count 344 10^3/uL 150 - 45 0 [facility] Platelet mean volume [Entitic volume] in Blood by Automated count 10.8 fL 7.4 - 10.4 H [facility] Neutrophils/100 leukocytes in Blood by Automated count 79.4 % 37. 0 - 80.0 [facility] Lymphocytes/100 leukocytes in Blood by Manual count 10.1 % 25.0 - 40.0 L [facility] Monocytes/100 leukocytes in Blood by Automated count 9.7 % 3.0 - 8.0 H [facility] Eosinophils/100 leukocytes in Blood by Automated count 0.1 % 0.0 - 7.0 [facility] Basophils/100 leukocytes in Blood by Automated count 0.2 % 0.0 - 2.0 [facility] %IG 0.5 % 0.0 - 0.0 H [facility] %NRBC 0.0 % 0.0 - 0.0 [facility] Neutrophils [#/volume] in Blood by Automated count 17.11 10^3/uL 2. 00 - 6.90 H [facility] Lymphocytes [#/volume] in Blood by Automated count 2.17 10^3/uL 0.60 - 3.40 [facility] Monocytes [#/volume] in Blood by Automated count 2.09 10^3/uL 0.00 - 0.90 H [facility] Eosinophils [#/volume] in Blood by Automated count 0.02 10^3/uL 0.00 - 0.70 [facility] Basophils [#/volume] in Blood by Automated count 0.04 10^3/uL 0.00 - 0.20 [facility] #IG 0.10 10^3/uL 0.00 - 0.10 [facility] #NRBC 0.00 10^3/uL 0.00 - 0.00 [facility] MANUAL DIFF SEE BELOW [facility] ital Segmented neutrophils/100 leukocytes in Blood by Manual count 78 % 37 - 80 [facility] BAND 3 % 0 - 5 [facility] %LYMPH 11 % 25 - 40 L [facility] %MONO 8 % 3 - 8 [facility] RBC MORPH MORPH IS NORMAL [facility] ID Date Data Source [id number] 10/09/2019 08:24:00 PM EDT [facility] Name Value Range Interpretation Code Description Data Trini rce(s) Supporting Document(s) Lipase [Enzymatic activity/volume] in Serum or Plasma 11 U/L 13 - 60 L [facility] ID Date Data Source [id number] 10/09/2019 08:24:00 PM EDT [facility] Name Value Range Interpretation Code Description Data Trini rce(s) Supporting Document(s) Creatine kinase [Enzymatic activity/volume] in Serum or Plas ma 1470 U/L 30 - 170 H [facility] ID Date Data Source [id number] 10/09/2019 08:24:00 PM EDT [facility] Name Value Range Interpretation Code Description Data Trini rce(s) Supporting Document(s) COMPREHENSIVE METABOLIC PANEL [facility] COMPREHENSIVE METABOLIC PANEL Sodium [Moles/volume] in Serum or Plasma 139 mEq/L 134 - 153 [facility] Potassium [Moles/volume] in Serum or Plasma 4.6 mEq/L 3.6 - 5.0 [facility] Chloride [Moles/volume] in Serum or Plasma 97 mEq/L 98 - 107 L [facility] Carbon dioxide, total [Moles/volume] in Serum or Plasma 28 MEQ/L 22 - 30 [facility] Glucose [Mass/volume] in Serum or Plasma 122 MG/DL 65 - 110 H [facility] BUN 24 MG/DL 7 - 21 H [facility] Creatinine [Mass/volume] in Serum or Plasma 1.2 MG/DL 0.7 - 1.5 [facility] BUN/CREAT 20 8 - 27 [facility] Protein [Mass/volume] in Serum or Plasma 7.8 G/DL 6.3 - 8.2 [facility] Albumin [Mass/volume] in Serum or Plasma 4.3 G/DL 3.9 - 5.0 [facility] Globulin [Mass/volume] in Serum by calculation 3.5 GM/DL 2.4 - 3.2 H [facility] A/G RATIO 1.2 0.8 - 2.0 [facility] Calcium [Mass/volume] in Serum or Plasma 9.9 MG/DL 8.4 - 10.2 [facility] Bilirubin.total [Mass/volume] in Serum or Plasma <0.7 MG/DL 0.2 - 1.3 [facility] Alkaline phosphatase [Enzymatic activity/volume] in Serum or Plasma 120 U/L 38 - 126 [facility] Aspartate aminotransferase [Enzymatic activity/volume] in Serum or Plasma 26 U/L 5 - 40 [facility] Alanine aminotransferase [Enzymatic activity/volume] in Seru m or Plasma 18 U/L 7 - 56 [facility] Anion gap 3 in Serum or Plasma 14.0 mmol/L 8.0 - 16.0 [facility] 58 [facility] >60 mL/min [facility] ital AFR AMER GFR >60 mL/min [facility] Male GFR In terprentation [...] >32 mL/min Normal ID Date Data Source [id number] 10/09/2019 08:24:00 PM EDT [facility] Name Value Range Interpretation Code Description Data Trini rce(s) Supporting Document(s) TROPONIN T <0.01 NG/ML 0.00 - 0.10 [facility] ospital TROPONIN T0.1 ng/ml Recommended as the c linical threshold value forTroponin T. ID Date Data Source [id number] 10/09/2019 08:24:00 PM EDT [facility] Name Value Range Interpretation Code Description Data Trini rce(s) Supporting Document(s) BNP 135 PG/ML 0 - 125 H [facility] ID Date Data Source [id number] 09/28/2019 09:10:00 AM EDT [facility] ([facility]) Name Value Range Interpretation Code Description Data Trini rce(s) Supporting Document(s) Phenytoin [Mass/volume] in Serum or Plasma 22.2 UG/ML 10.0-20.0 [facility] ([facility] ) <content>note:<nlbl:demographic_changed> </content>
<content></content> ID Date Data Source [id number] 09/08/2019 09:00:00 AM EDT [facility] ([facility] ) Name Value Range Interpretation Code Description Data Trini rce(s) Supporting Document(s) Aspartate aminotransferase [Enzymatic activity/volume] in Serum or Plasma 16 U/L 7-37 [facility] ([facility], ) <content>note:<nlbl:demographic_changed> </content>
<content></content> Phenobarbital [Mass/volume] in Serum or Plasma 29.1 UG/ML 15.0-40.0 [facility] ([facility] ) <content>note:<nlbl:demographic_changed> </content>
<content></content> Alanine aminotransferase [Enzymatic activity/volume] in Seru m or Plasma 25 U/L 12-78 [facility] ([facility] ) <content>note:<nlbl:demographic_changed> </content>
<content></content> Phenytoin [Mass/volume] in Serum or Plasma 8.8 UG/ML 10.0-20.0 [facility] ([facility] ) <content>note:<nlbl:demographic_changed> </content>
<content></content> Levetiracetam [Mass/volume] in Serum or Plasma 20.7 ug/mL 10.0-40.0 [facility] ([facility] ) This test was developed and its performa nce characteristics determined by [facility]. It has not been cleared or approved by the Food and Drug Administration. Performed at: [address], [place], [place] [id number] 61 [employer] Assembler: Seng Nichols MD, Phone: [phone] ID Date Data Source [id number] 09/08/2019 09:00:00 AM EDT [facility] ([facility] ) Name Value Range Interpretation Code Description Data Trini rce(s) Supporting Document(s) White Blood Count 6.3 10 4.0-10.0 [facility] ([facility]) Red Blood Count 4.71 10 4.30-6.10 [facility] ([facility]) Hemoglobin 13.5 g/dL 13.5-17.5 [facility] ([facility]) Mean Corpuscular Hemoglobin 28.7 pg 27.0-33.0 [facility] ([facility]) Hematocrit 41.9 % 42.0-52.0 [facility] ([facility]) Mean Corpuscular Volume 89.0 fl 80.0-96.0 M [facility] ([facility]) Red Cell Distribution Width 14.2 % 11.5-14.5 [facility] ([facility]) Mean Corpuscular HGB Conc 32.2 g/dL 32.0-36.5 [facility] ([facility]) Neutrophils % 55.6 % 36.0-66.0 [facility] ([facility]) Platelet Count, Automated 221 10 150-450 [facility] ([facility]) Lymph % 28.6 % 24.0-44.0 [facility] ([facility]) [place] % 13.0 % 0.0-5.0 [facility] ([facility]) Baso % 0.3 % 0.0-1.0 [facility] ([facility]) Eos % 2.2 % 0.0-3.0 [facility] ([facility]) Nucleated Red Blood Cell % 0.0 % 0-0 [facility] ([facility]) Immature Granulocyte % 0.3 % 0-3.0 [facility] ([facility]) Neutrophils # 3.5 10 1.5-8.5 [facility] ([facility]) Lymph # 1.8 10 1.5-5.0 [facility] ([facility]) [place] # 0.8 10 0.0-0.8 [facility] ([facility]) Eos # 0.1 10 0.0-0.5 [facility] ([facility]) Baso # 0.0 10 0.0-0.2 [facility] ([facility]) ID Date Data Source UA URINALYSIS 08/15/2019 05:58:00 AM EDT eCW1 ([facility]) Name Value Range Interpretation Code Description Data Trini rce(s) Supporting Document(s) UA URINALYSIS [facility]CW[facility]) ID Date Data Source URINE CULTURE 08/15/2019 05:57:27 AM EDT eCW1 ([facility]) Name Value Range Interpretation Code Description Data Trini rce(s) Supporting Document(s) URINE CULTURE eCW1 ([facility]) ID Date Data Source Chest X-ray PA and lateral 08/12/2019 04:34:35 AM EDT eCW1 ( [facility]) Name Value Range Interpretation Code Description Data Trini rce(s) Supporting Document(s) Chest X-ray PA and lateral eCW 1 ([facility]) ID Date Data Source LIPASE 08/10/2019 05:17:33 AM EDT eCW1 ([facility]) Name Value Range Interpretation Code Description Data Trini rce(s) Supporting Document(s) 57 LIPASE eCW1 ([facility]) ID Date Data Source LACTIC ACID LEVEL, LACTATE 08/10/2019 05:17:07 AM EDT eCW1 ( [facility]) Name Value Range Interpretation Code Description Data Trini rce(s) Supporting Document(s) LACTIC ACID LEVEL, LACTATE eCW 1 ([facility]) ID Date Data Source [id number] 08/09/2019 07:50:00 AM EDT [facility] ([facility]) Name Value Range Interpretation Code Description Data Trini rce(s) Supporting Document(s) Phenytoin [Mass/volume] in Serum or Plasma 8.2 UG/ML 10.0-20.0 [facility] ([facility]) <content>note:<nlbl:demographic_changed> </content>
<content></content> ID Date Data Source Coronavirus 2019 Nasopharygeal (Send Out) COVID 07/01/2019 1 2:00:00 AM EDT eCW1 [facility]) Name Value Range Interpretation Code Description Data Trini rce(s) Supporting Document(s) Testing was performed using the slava(R) SARS-CoV-[address] CORONAVIRUS 2019 NASOPHARYGEAL eCW1 ([facility]) ID Date Data Source PROCALCITONIN 07/01/2019 12:00:00 AM EDT eCW1 ([facility]) Name Value Range Interpretation Code Description Data Trini rce(s) Supporting Document(s) 0.97 PROCALCITONIN eCW1 ([facility]) ID Date Data Source RESPIRATORY PANEL 07/01/2019 12:00:00 AM EDT eCW1 ([facility]) Name Value Range Interpretation Code Description Data Trini rce(s) Supporting Document(s) This respiratory PCR panel detects Influenza A H1, H3 and RESPIRATORY PANEL eCW1 ([facility]) ID Date Data Source Rapid Flu ([place] Influenza A+B HERNANDEZ) 07/01/2019 12:00:00 AM E DT eCW1 ([facility]) Name Value Range Interpretation Code Description Data Trini rce(s) Supporting Document(s) Pos Result B (Positive/Negative) e CW1 ([facility]) Neg Result A (Positive/Negative) e CW1 ([facility]) Yes Internal Controls Perform ed (Y/N) eCW1 ([facility]) ID Date Data Source [id number] 03/15/2019 09:25:00 AM EST [facility] ([facility] Name Value Range Interpretation Code Description Data Trini rce(s) Supporting Document(s) Phenytoin [Mass/volume] in Serum or Plasma 8.7 UG/ML 10.0-20.0 [facility] ([facility] ) <content>note:<nlbl:demographic_changed> </content>
<content></content> Phenobarbital [Mass/volume] in Serum or Plasma 29.0 UG/ML 15.0-40.0 [facility] ([facility] ) <content>note:<nlbl:demographic_changed> </content>
<content></content> Levetiracetam [Mass/volume] in Serum or Plasma 12.4 ug/mL 10.0-40.0 [facility] ([facility] ) This test was developed and its performa nce characteristics determined by [facility]. It has not been cleared or approved by the Food and Drug Administration. Performed at: - [facility] [id number] 61 [employer] Assembler: Seng Nichols MD, Phone: [phone] ID Date Data Source PTH INTACT 03/15/2019 12:00:00 AM EST eCW1 ([facility]) Name Value Range Interpretation Code Description Data Trini rce(s) Supporting Document(s) 23.1 18.5-88.0 PTH INTACT eCW1 ([facility]) ID Date Data Source VITAMIN D 25-HYDROXY 03/15/2019 12:00:00 AM EST eCW1 ([facility]) Name Value Range Interpretation Code Description Data Trini rce(s) Supporting Document(s) 81.9 30.0-100.0 TOTAL 25(OH) VITAMIN D eC W1 ([facility]) Procedure Social History Code Duration Value Status Description Data Source(s ) Smoking 01/20/2020 12:00:00 AM EST Never Smoker completed Never S moker eCW1 ([facility]) Smoking 01/20/2020 12:00:00 AM EST Never Smoker completed Never S moker eCW1 ([facility]) Smoking 01/20/2020 12:00:00 AM EST Never Smoker completed Never S moker eCW1 ([facility]) Smoking 01/20/2020 12:00:00 AM EST Never Smoker completed Never S moker eCW1 ([facility]) Smoking 01/20/2020 12:00:00 AM EST Never Smoker completed Never S moker eCW1 ([facility]) Smoking 01/20/2020 12:00:00 AM EST Never Smoker completed Never S moker eCW1 ([facility]) Smoking 01/20/2020 12:00:00 AM EST Never Smoker completed Never S moker eCW1 ([facility]) Smoking 01/20/2020 12:00:00 AM EST Never Smoker completed Never S moker eCW1 ([facility]) Smoking 01/20/2020 12:00:00 AM EST Never Smoker completed Never S moker eCW1 ([facility]) Smoking 01/03/2020 12:00:00 AM EST Never Smoker completed Never S moker eCW1 ([facility]) Smoking 01/03/2020 12:00:00 AM EST Never Smoker completed Never S moker eCW1 ([facility]) Smoking 12/01/2019 12:00:00 AM EDT Never Smoker completed Never S moker eCW1 ([facility]) Smoking 12/01/2019 12:00:00 AM EDT Never Smoker completed Never S moker eCW1 ([facility]) Smoking 12/01/2019 12:00:00 AM EDT Never Smoker completed Never S moker eCW1 ([facility]) Smoking 12/01/2019 12:00:00 AM EDT Never Smoker completed Never S moker eCW1 ([facility]) Smoking 12/01/2019 12:00:00 AM EDT Never Smoker completed Never S moker eCW1 ([facility]) Smoking 12/01/2019 12:00:00 AM EDT Never Smoker completed Never S moker eCW1 ([facility]) Smoking 12/01/2019 12:00:00 AM EDT Never Smoker completed Never S moker eCW1 ([facility]) Smoking 12/01/2019 12:00:00 AM EDT Never Smoker completed Never S moker eCW1 ([facility]) Smoking 12/01/2019 12:00:00 AM EDT Never Smoker completed Never S moker eCW1 ([facility]) Smoking 12/01/2019 12:00:00 AM EDT Never Smoker completed Never S moker eCW1 ([facility]) Smoking 12/01/2019 12:00:00 AM EDT Never Smoker completed Never S moker eCW1 ([facility]) Smoking 12/01/2019 12:00:00 AM EDT Never Smoker completed Never S moker eCW1 ([facility]) Smoking 08/10/2019 12:00:00 AM EDT Never Smoker completed Never S moker eCW1 ([facility]) Smoking 08/10/2019 12:00:00 AM EDT Never Smoker completed Never S moker eCW1 ([facility]) Smoking 08/10/2019 12:00:00 AM EDT Never Smoker completed Never S moker eCW1 ([facility]) Smoking 08/10/2019 12:00:00 AM EDT Never Smoker completed Never S moker eCW1 ([facility]) Smoking 08/10/2019 12:00:00 AM EDT Never Smoker completed Never S moker eCW1 ([facility]) Smoking 08/10/2019 12:00:00 AM EDT Never Smoker completed Never S moker eCW1 ([facility]) Smoking 08/10/2019 12:00:00 AM EDT Never Smoker completed Never S moker eCW1 ([facility]) Smoking 07/26/2019 12:00:00 AM EDT Never Smoker completed Never S moker eCW1 ([facility]) Smoking 07/26/2019 12:00:00 AM EDT Never Smoker completed Never S moker eCW1 ([facility]) Smoking 07/26/2019 12:00:00 AM EDT Never Smoker completed Never S moker eCW1 ([facility]) Smoking 07/26/2019 12:00:00 AM EDT Never Smoker completed Never S moker eCW1 ([facility]) Smoking 07/26/2019 12:00:00 AM EDT Never Smoker completed Never S moker eCW1 ([facility]) Smoking 07/26/2019 12:00:00 AM EDT Never Smoker completed Never S moker eCW1 ([facility]) Smoking 07/26/2019 12:00:00 AM EDT Never Smoker completed Never S moker eCW1 ([facility]) Vital Signs ID Date Data Source UNK Name Value Range Interpretation Code Description Data Source(s) Diastolic blood pressure 75 mm[Hg] 75 mm[Hg] eCW1 ([facility]) Systolic blood pressure 123 mm[Hg] 123 mm[Hg] e CW1 ([facility]) Respiratory rate 18 /min 18 /min eCW1 ([facility]) Heart rate 82 /min 82 /min eCW1 ([facility]) Body mass index (BMI) [Ratio] 25.05 kg/m2 25.05 kg/m2 eCW1 ([facility]) Body height 62 [in_i] 62 [in_i] eCW1 ([facility]) Body weight 137 [lb_av] 137 [lb_av] eCW1 ([facility]) Diastolic blood pressure 78 mm[Hg] 78 mm[Hg] eCW1 ([facility]) Systolic blood pressure 128 mm[Hg] 128 mm[Hg] e CW1 ([facility]) Body temperature 97.2 [degF] 97.2 [degF] eCW1 ( [facility]) Respiratory rate 18 /min 18 /min eCW1 ([facility]) Heart rate 93 /min 93 /min eCW1 ([facility]) Body mass index (BMI) [Ratio] 25.49 kg/m2 25.49 kg/m2 eCW1 ([facility]) Body height 62 [in_i] 62 [in_i] eCW1 ([facility]) Body weight 139.4 [lb_av] 139.4 [lb_av] eCW1 ([facility]) Body mass index (BMI) [Ratio] 30.2 kg/m2 30.2 k g/m2 [facility] ([facility] Body weight 144.38 [lb_av] 144.38 [lb_av] MEDEN T ([facility] Body height 58 [in_i] 58 [in_i] [facility] ([facility] 4'10" Diastolic blood pressure 74 mm[Hg] 74 mm[Hg] eCW1 ([facility]) Systolic blood pressure 114 mm[Hg] 114 mm[Hg] e CW1 ([facility]) Body temperature 98.9 [degF] 98.9 [degF] eCW1 ( [facility]) Respiratory rate 18 /min 18 /min eCW1 ([facility]) Heart rate 90 /min 90 /min eCW1 ([facility]) Body mass index (BMI) [Ratio] 25.05 kg/m2 25.05 kg/m2 eCW1 ([facility]) Body height 62 [in_i] 62 [in_i] eCW1 ([facility]) Body weight 137 [lb_av] 137 [lb_av] eCW1 ([facility]) Body temperature 98.3 [degF] 98.3 [degF] eCW1 ( [facility]) Respiratory rate 18 /min 18 /min eCW1 ([facility]) Heart rate 88 /min 88 /min eCW1 ([facility]) Body mass index (BMI) [Ratio] 25.05 kg/m2 25.05 kg/m2 eCW1 ([facility]) Body height 62 [in_i] 62 [in_i] eCW1 ([facility]) Body weight 137 [lb_av] 137 [lb_av] eCW1 ([facility]) Body temperature 98.3 [degF] 98.3 [degF] eCW1 ( [facility]) Respiratory rate 18 /min 18 /min eCW1 ([facility]) Heart rate 88 /min 88 /min eCW1 ([facility]) Body mass index (BMI) [Ratio] 25.05 kg/m2 25.05 kg/m2 eCW1 ([facility]) Body height 62 [in_i] 62 [in_i] eCW1 ([facility]) Body weight 137 [lb_av] 137 [lb_av] eCW1 ([facility]) Body temperature 100.6 [degF] 100.6 [degF] eCW1 ([facility]) Respiratory rate 22 /min 22 /min eCW1 ([facility]) Body mass index (BMI) [Ratio] 25.91 kg/m2 25.91 kg/m2 eCW1 ([facility]) Body height 62 [in_us] 62 [in_us] eCW1 ([facility]) Body weight Measured 141.7 [lb_av] 141.7 [lb_av ] eCW1 ([facility]) Body weight 141.00 [lb_av] 141.00 [lb_av] MEDEN T ([facility]) Body temperature 95.9 [degF] 95.9 [degF] [facility] ([facility]) Oxygen saturation in Arterial blood by Pulse oximetry 98 % 98 % MEDENT ([facility], [facility]) Respiratory rate 16 /min 16 /min MEDENT ( [facility], [facility]) Heart rate 83 /min 83 /min MEDENT ([facility], [facility]) Diastolic blood pressure 80 mm[Hg] 80 mm[Hg] eCW1 ([facility]) Systolic blood pressure 124 mm[Hg] 124 mm[Hg] e CW1 ([facility]) Body temperature 99.7 [degF] 99.7 [degF] eCW[facility] ( [facility]) Respiratory rate 18 /min 18 /min eCW1 ([facility]) Heart rate 104 /min 104 /min eCW1 ([facility]) Body mass index (BMI) [Ratio] 25.05 kg/m2 25.05 kg/m2 W1 ([facility]) Body height 62 [in_us] 62 [in_us] eCW1 ([facility]) Body weight Measured 137 [lb_av] 137 [lb_av] eC W1 ([facility]) Respiratory rate 16 /min 16 /min MEDENT ( [facility] ) Heart rate 72 /min 72 /min MEDENT ([facility], ) Diastolic blood pressure 70 mm[Hg] 70 mm[Hg] MEDENT ([facility], ) Systolic blood pressure 122 mm[Hg] 122 mm[Hg] M EDENT ([facility], ) Diastolic blood pressure 76 mm[Hg] 76 mm[Hg] eCW1 ([facility]) Systolic blood pressure 118 mm[Hg] 118 mm[Hg] e CW1 ([facility]) Body temperature 96.8 [degF] 96.8 [degF] eCW1 ( [facility]) Respiratory rate 18 /min 18 /min eCW1 ([facility]) Heart rate 97 /min 97 /min eCW1 ([facility]) Body mass index (BMI) [Ratio] 25.05 kg/m2 25.05 kg/m2 eCW1 ([facility]) Body height 62 [in_us] 62 [in_us] eCW1 ([facility]) Body weight Measured 137 [lb_av] 137 [lb_av] eC W1 ([facility]) ID Date Data Source [id number] 10/27/2019 08:43:21 AM EDT [facility] Name Value Range Interpretation Code Description Data Source(s) WEIGHT RECORDED 146.60 pounds 146.60 pounds [facility] WEIGHT RECORDED 146.70 pounds 146.70 pounds [facility] Patient Treatment Plan of Care Planned Activity Planned Date Details Description Data Source (s) Magnesium Hydroxide 80 MG/ML Oral Suspension 03/13/2020 12:00:00 AM EST eCW1 ([facility]) Docusate Sodium 50 MG / sennosides, [facility] 8.6 MG Oral Ta blet 03/13/2020 12:00:00 AM EST eCW1 ([facility]) montelukast 10 MG Oral Tablet 12/16/2019 12:00:00 AM EDT eCW1 ([facility]) montelukast 10 MG Oral Tablet 12/16/2019 12:00:00 AM EDT eCW1 ([facility]) montelukast 10 MG Oral Tablet 12/16/2019 12:00:00 AM EDT eCW1 ([facility]) montelukast 10 MG Oral Tablet 12/16/2019 12:00:00 AM EDT eCW1 ([facility]) montelukast 10 MG Oral Tablet 12/16/2019 12:00:00 AM EDT eCW1 ([facility]) montelukast 10 MG Oral Tablet 12/16/2019 12:00:00 AM EDT eCW1 ([facility]) montelukast 10 MG Oral Tablet 12/16/2019 12:00:00 AM EDT eCW1 ([facility]) montelukast 10 MG Oral Tablet 12/16/2019 12:00:00 AM EDT eCW1 ([facility]) montelukast 10 MG Oral Tablet 12/16/2019 12:00:00 AM EDT eCW1 ([facility]) zoledronic acid 0.05 MG/ML Injectable Solution [Reclas t] 12/06/2019 12:00:00 AM EDT eCW1 ([facility]) zoledronic acid 0.05 MG/ML Injectable Solution [Reclas t] 12/06/2019 12:00:00 AM EDT eCW1 ([facility]) zoledronic acid 0.05 MG/ML Injectable Solution [Reclas t] 12/06/2019 12:00:00 AM EDT eCW1 ([facility]) zoledronic acid 0.05 MG/ML Injectable Solution [Reclas t] 12/06/2019 12:00:00 AM EDT eCW1 ([facility]) zoledronic acid 0.05 MG/ML Injectable Solution [Reclas t] 12/06/2019 12:00:00 AM EDT eCW1 ([facility]) zoledronic acid 0.05 MG/ML Injectable Solution [Reclas t] 12/06/2019 12:00:00 AM EDT eCW1 ([facility]) zoledronic acid 0.05 MG/ML Injectable Solution [Reclas t] 12/06/2019 12:00:00 AM EDT eCW1 ([facility]) zoledronic acid 0.05 MG/ML Injectable Solution [Reclas t] 12/06/2019 12:00:00 AM EDT eCW1 ([facility]) zoledronic acid 0.05 MG/ML Injectable Solution [Reclas t] 12/06/2019 12:00:00 AM EDT eCW1 ([facility]) zoledronic acid 0.05 MG/ML Injectable Solution [Reclas t] 12/06/2019 12:00:00 AM EDT eCW1 ([facility]) zoledronic acid 0.05 MG/ML Injectable Solution [Reclas t] 12/06/2019 12:00:00 AM EDT eCW1 ([facility]) zoledronic acid 0.05 MG/ML Injectable Solution [Reclas t] 12/06/2019 12:00:00 AM EDT eCW1 ([facility]) zoledronic acid 0.05 MG/ML Injectable Solution [Reclas t] 12/06/2019 12:00:00 AM EDT eCW1 ([facility]) zoledronic acid 0.05 MG/ML Injectable Solution [Reclas t] 12/06/2019 12:00:00 AM EDT eCW1 ([facility]) Flonase Allergy Relief 50 MCG/ACT 12/02/2019 12:00:00 AM EDT eCW1 ([facility]) Flonase Allergy Relief 50 MCG/ACT 12/02/2019 12:00:00 AM EDT eCW1 ([facility]) Flonase Allergy Relief 50 MCG/ACT 12/02/2019 12:00:00 AM EDT eCW1 ([facility]) Flonase Allergy Relief 50 MCG/ACT 12/02/2019 12:00:00 AM EDT eCW1 ([facility]) Flonase Allergy Relief 50 MCG/ACT 12/02/2019 12:00:00 AM EDT eCW1 ([facility]) Flonase Allergy Relief 50 MCG/ACT 12/02/2019 12:00:00 AM EDT eCW1 ([facility]) Flonase Allergy Relief 50 MCG/ACT 12/02/2019 12:00:00 AM EDT eCW1 ([facility]) Flonase Allergy Relief 50 MCG/ACT 12/02/2019 12:00:00 AM EDT eCW1 ([facility]) Flonase Allergy Relief 50 MCG/ACT 12/02/2019 12:00:00 AM EDT eCW1 ([facility]) Flonase Allergy Relief 50 MCG/ACT 12/02/2019 12:00:00 AM EDT eCW1 ([facility]) Flonase Allergy Relief 50 MCG/ACT 12/02/2019 12:00:00 AM EDT eCW1 ([facility]) Flonase Allergy Relief 50 MCG/ACT 12/02/2019 12:00:00 AM EDT eCW1 ([facility]) Flonase Allergy Relief 50 MCG/ACT 12/02/2019 12:00:00 AM EDT eCW1 ([facility]) Flonase Allergy Relief 50 MCG/ACT 12/02/2019 12:00:00 AM EDT eCW1 ([facility]) Flonase Allergy Relief 50 MCG/ACT 12/02/2019 12:00:00 AM EDT eCW1 ([facility]) Flonase Allergy Relief 50 MCG/ACT 12/02/2019 12:00:00 AM EDT eCW1 ([facility]) Flonase Allergy Relief 50 MCG/ACT 12/02/2019 12:00:00 AM EDT eCW1 ([facility]) Flonase Allergy Relief 50 MCG/ACT 12/02/2019 12:00:00 AM EDT eCW1 ([facility]) Flonase Allergy Relief 50 MCG/ACT 12/02/2019 12:00:00 AM EDT eCW1 ([facility]) Flonase Allergy Relief 50 MCG/ACT 12/02/2019 12:00:00 AM EDT eCW1 ([facility]) Flonase Allergy Relief 50 MCG/ACT 12/02/2019 12:00:00 AM EDT eCW1 ([facility]) Flonase Allergy Relief 50 MCG/ACT 12/02/2019 12:00:00 AM EDT eCW1 ([facility]) Bisacodyl 10 MG Rectal Suppository 11/25/2019 12:00:00 AM EDT eCW1 ([facility]) Sodium Phosphate, Dibasic 59.3 MG/ML / S odium Phosphate, Monobasic 161 MG/ML Enema 11/25/2019 12:00:00 AM EDT eCW1 ([facility]) [employer] 14FR/20CM 1 11/25/2019 12:00:00 AM EDT eCW1 ([facility]) Sodium Phosphate, Dibasic 59.3 MG/ML / S odium Phosphate, Monobasic 161 MG/ML Enema 11/25/2019 12:00:00 AM EDT eCW1 ([facility]) Bisacodyl 10 MG Rectal Suppository 11/25/2019 12:00:00 AM EDT eCW1 ([facility]) May Have - 11/25/2019 12:00:00 AM EDT e CW1 ([facility]) [employer] [employer] 14FR/20CM 1 11/25/2019 12:00:00 AM EDT eCW1 ([facility]) Sodium Phosphate, Dibasic 59.3 MG/ML / S odium Phosphate, Monobasic 161 MG/ML Enema 11/25/2019 12:00:00 AM EDT eCW1 ([facility]) Bisacodyl 10 MG Rectal Suppository 11/25/2019 12:00:00 AM EDT eCW1 ([facility]) May Have - 11/25/2019 12:00:00 AM EDT e CW1 ([facility]) [employer] 14FR/20CM 1 11/25/2019 12:00:00 AM EDT eCW1 ([facility]) Sodium Phosphate, Dibasic 59.3 MG/ML / S odium Phosphate, Monobasic 161 MG/ML Enema 11/25/2019 12:00:00 AM EDT eCW1 ([facility]) Bisacodyl 10 MG Rectal Suppository 11/25/2019 12:00:00 AM EDT eCW1 ([facility]) May Have - 11/25/2019 12:00:00 AM EDT e CW1 ([facility]) [employer] 14FR/20CM 1 11/25/2019 12:00:00 AM EDT eCW1 ([facility]) Sodium Phosphate, Dibasic 59.3 MG/ML / S odium Phosphate, Monobasic 161 MG/ML Enema 11/25/2019 12:00:00 AM EDT eCW1 ([facility]) Bisacodyl 10 MG Rectal Suppository 11/25/2019 12:00:00 AM EDT eCW1 ([facility]) May Have - 11/25/2019 12:00:00 AM EDT e CW1 ([facility]) NITROFURANTOIN, MACROCRYSTALS 25 MG / Ni trofurantoin, Monohydrate 75 MG Oral Capsule 08/15/2019 12:00:00 AM EDT eCW1 ([facility]) NITROFURANTOIN, MACROCRYSTALS 25 MG / Ni trofurantoin, Monohydrate 75 MG Oral Capsule 08/15/2019 12:00:00 AM EDT eCW1 ([facility]) NITROFURANTOIN, MACROCRYSTALS 25 MG / Ni trofurantoin, Monohydrate 75 MG Oral Capsule 08/15/2019 12:00:00 AM EDT eCW1 ([facility]) NITROFURANTOIN, MACROCRYSTALS 25 MG / Ni trofurantoin, Monohydrate 75 MG Oral Capsule 08/15/2019 12:00:00 AM EDT eCW1 ([facility]) NITROFURANTOIN, MACROCRYSTALS 25 MG / Ni trofurantoin, Monohydrate 75 MG Oral Capsule 08/15/2019 12:00:00 AM EDT eCW1 ([facility]) NITROFURANTOIN, MACROCRYSTALS 25 MG / Ni trofurantoin, Monohydrate 75 MG Oral Capsule 08/15/2019 12:00:00 AM EDT eCW1 ([facility]) NITROFURANTOIN, MACROCRYSTALS 25 MG / Ni trofurantoin, Monohydrate 75 MG Oral Capsule 08/15/2019 12:00:00 AM EDT eCW1 ([facility]) Chlorthalidone 25 MG Oral Tablet 07/26/2019 12:00:00 AM EDT eCW1 ([facility]) Chlorthalidone 25 MG Oral Tablet 07/26/2019 12:00:00 AM EDT eCW1 ([facility]) Chlorthalidone 25 MG Oral Tablet 07/26/2019 12:00:00 AM EDT eCW1 ([facility]) Chlorthalidone 25 MG Oral Tablet 07/26/2019 12:00:00 AM EDT eCW1 ([facility]) Chlorthalidone 25 MG Oral Tablet 07/26/2019 12:00:00 AM EDT eCW1 ([facility]) Chlorthalidone 25 MG Oral Tablet 07/26/2019 12:00:00 AM EDT eCW1 ([facility]) Chlorthalidone 25 MG Oral Tablet 07/26/2019 12:00:00 AM EDT eCW1 ([facility]) May Have - 07/14/2019 12:00:00 AM EDT e CW1 ([facility]) Oseltamivir 75 MG Oral Capsule 07/01/2019 12:00:00 AM EDT eCW1 ([facility]) Wheelchair _ 03/18/2019 12:00:00 AM EST e CW1 ([facility]) Triamcinolone Acetonide 1 MG/ML Topical Cream eCW1 ([facility]) Triamcinolone Acetonide 1 MG/ML Topical Cream eCW1 ([facility])
--- OUTSIDE RECORDS SUMMARY | 2020-03-19 06:09 | CCD ---
Author Author [facility] Organization [facility] Address Unknown Phone Unavailable Support Name Relationship Address Phone [facility] RESIDENCE, STAFF Next Of Kin [facility] USP [address] [place], [place] [phone] RADHA ALMARAZ Next Of [place] [address] [address] [place] [address] [facility], HOME GROUP Next Of Kin [address] [place] [phone] RESIDENT, [facility] Next Of Kin [address] [place], [place] [phone] JAI OSPINA Next Of Kin [address] [facility] [place] [address] FELICITAS STANLEY Next Of Kin [address] [place] [address] TOSHA EDOUARD Next Of Kin [address] [place] [address] BIRGIT TREJO Next Of Kin [address] [place] [address] NKECHI TREJO(NURSE) Next Of Kin [address] [place] [address] NATHANAEL PLAZA Next Of Kin [address] [place] [address] ANTOINETTE CORONEL Next Of Kin [address] [place] [address] UE Next Of Kin Unknown Unavailable DISABLED Next Of Kin Unknown AJAY NUNEZ Next Of Kin [address] [place] [address] RENAN POLLACK Next Of Kin [address] [place] [address] Felicitas Stanley ECON [address] [place] [address] Unavailable BIRGIT TREJO ECON [address] [place] [address] Care Team Providers 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 If you continue you may have access to information: Regarding HIV / AIDS; Provided by facilities licensed or operated by the [facility] Office of Mental Health; or Provided by the [facility] Office for People With Developmental Disabilities. If such information is present, then the following [facility] mandated warning applies: This information has [...] law may result in a fine or retirement sentence or both. A general authorization for the release of medical or other information is NOT sufficient authorization for further disc losure. Allergies and Adverse Reactions Type Description Substance Reaction Status Data Source(s ) No Known Allergies No Known Allergies [facility] Family History Family Member Name Family Member Gender Family Member Status Date o f Status Description Data Source(s) Unknown Unknown Problem [facility] Encounters Encounter Providers Location Date Indications Data Source(s ) Unknown [address] [facility] [address] 03/12/2020 12:00:00 AM EST eCW1 ([facility]) [place] [address] [facility] [address] 02/21/2020 12:00:00 AM EST eCW1 ([facility]) [place] [address] [facility] [address] 02/01/2020 12:00:00 AM EST eCW1 ([facility]) Unknown [address] [facility] [address] 02/01/2020 12:00:00 AM EST eCW1 ([facility]) [place] [address] [facility] [place] [address] 01/26/2020 12:00:00 AM EST eCW1 ([facility]) TeleMedicine Est. Pt. Level 5 [address] [place] [address] 01/20/2020 12:00:00 AM EST eCW1 ([facility]) Unknown [address] [facility] [address] 01/20/2020 12:00:00 AM EST eCW1 ([facility]) Unknown [address] [facility] [address] 01/19/2020 12:00:00 AM EST eCW1 ([facility]) Unknown [address] [facility] [address] 01/18/2020 12:00:00 AM EST eCW1 ([facility]) [place] [address] [facility] [place] [address] 01/17/2020 12:00:00 AM EST eCW1 ([facility]) Unknown [address] [facility] [place] [address] 01/03/2020 12:00:00 AM EST eCW1 ([facility]) Unknown [address] [facility] [place] [address] 12/28/2019 12:00:00 AM EST eCW1 ([facility]) Unknown [address] [facility] [address] 12/26/2019 12:00:00 AM EST eCW1 ([facility]) Unknown [address] [facility] [address] 12/23/2019 12:00:00 AM EST eCW1 ([facility]) Unknown [address] [facility] [address] 12/22/2019 12:00:00 AM EST eCW1 ([facility]) Unknown [address] [facility] [place] [address] 12/19/2019 12:00:00 AM EST eCW1 ([facility]) Unknown [address] [facility] [address] 12/15/2019 12:00:00 AM EDT eCW1 ([facility]) Unknown [address] [facility] [place] [address] 12/14/2019 12:00:00 AM EDT eCW1 ([facility]) Unknown [address] [facility] [place] [address] 12/14/2019 12:00:00 AM EDT eCW1 ([facility]) Unknown [address] [facility] [place] [address] 12/12/2019 12:00:00 AM EDT eCW1 ([facility]) Unknown [address] [facility] [place] [address] 12/07/2019 12:00:00 AM EDT eCW1 ([facility]) Outpatient Attender: Lakisha Jackson AR Main office - [facility] 12/06/2019 10:00:00 AM EDT MEDENT ([facility] GHANSHYAM marquez) Unknown [address] [facility] Y [address] 12/06/2019 12:00:00 AM EDT eCW1 ([facility]) Outpatient [address] [facility] Y [address] 12/02/2019 12:00:00 AM EDT eCW1 ([facility]) Unknown [address] [facility] [address] 11/30/2019 12:00:00 AM EDT eCW1 ([facility]) Unknown [address] [facility] [address] 11/29/2019 12:00:00 AM EDT eCW1 ([facility]) Unknown [address] [facility], [place] [address] 11/25/2019 12:00:00 AM EDT eCW1 ([facility]) Unknown [address] [facility] [address] 11/24/2019 12:00:00 AM EDT eCW1 ([facility]) Outpatient Attender: CHAVO GRIFFITH [facility] [place] Office 03/2019 10:15:00 AM EDT MEDENT ([facility] [place] [address] [facility], [place] [address] 10/31/2019 12:00:00 AM EDT eCW1 [facility]) Inpatient Attender: Rory Kam er: REESE LANDERS MDConsultant: Ash Vences MD 10/10/2019 10:35:00 AM EDT - 10/14/2019 05:35:00 PM EDT [facility] Patient discharged. Outpatient 10/09/2019 07:45:00 PM EDT [facility] Outpatient Attender: Rory GUAN 0 07:15:00 PM EDT - 10/10/2019 10:35:00 AM EDT [facility] Outpatient Attender: Lakisha GUAN [facility] office [facility] 09/01/2019 10:45:00 AM EDT MEDENT ([facility] GHANSHYAM Clarke) Unknown [address] [facility] [address] 08/23/2019 12:00:00 AM EDT eCW1 ([facility] Outpatient [address] [facility] [address] 08/10/2019 12:00:00 AM EDT eCW1 ([facility]) Unknown [address] [facility] [address] 08/04/2019 12:00:00 AM EDT eCW1 ([facility]) Unknown [address] [facility] [address] 08/03/2019 12:00:00 AM EDT eCW1 ([facility]) Unknown [address] [facility] [address] 07/28/2019 12:00:00 AM EDT eCW1 ([facility]) Unknown [address] [facility] [address] 07/28/2019 12:00:00 AM EDT eCW1 ([facility]) Unknown [address] [facility] [address] 07/27/2019 12:00:00 AM EDT eCW1 ([facility]) Outpatient [address] [facility] [address] 07/26/2019 12:00:00 AM EDT eCW1 ([facility]) Unknown [address] [facility] [address] 07/26/2019 12:00:00 AM EDT eCW1 ([facility]) [facility] [place] [address] [facility] [address] 07/13/2019 12:00:00 AM EDT eCW1 ([facility]) [facility] [place] [address] [facility] [address] 07/08/2019 12:00:00 AM EDT eCW1 ([facility]) [facility] [place] [address] [facility] [address] 07/07/2019 12:00:00 AM EDT eCW1 ([facility]) [facility] [place] [address] [facility] [address] 07/06/2019 12:00:00 AM EDT eCW1 ([facility]) [address] [address] 07/05/2019 12:00:00 AM EDT eCW1 ([facility]) [address] [address] 07/05/2019 12:00:00 AM EDT eCW1 ([facility]) [address] [address] 07/04/2019 12:00:00 AM EDT eCW1 ([facility]) [address] [place] [address] 07/01/2019 12:00:00 AM EDT eCW1 ([facility]) [address] [place] [address] 06/30/2019 12:00:00 AM EDT eCW1 ([facility]) [address] [address] 06/20/2019 12:00:00 AM EDT eCW1 ([facility]) Outpatient Attender: Lakisha GUAN [facility] 05/26/2019 09:15:00 AM EDT MEDENT ([facility] GHANSHYAM marquez) [address] [place] [address] 05/12/2019 12:00:00 AM EDT eCW1 ([facility]) [address] [address] 04/21/2019 12:00:00 AM EST eCW1 ([facility]) [address] [place] [address] 04/06/2019 12:00:00 AM EST eCW1 ([facility]) [address] [place] [address] 03/18/2019 12:00:00 AM EST [facility]CW1 [facility] [address] [place] [address] 03/17/2019 12:00:00 AM EST eCW1 [facility]) Outpatient Attender: AJ Orelalna [facility] 03/11/2019 11:15:00 AM EST MEDENT ([facility]) [address] [place] [address] 03/11/2019 12:00:00 AM EST eCW1 ([facility]) [address] [place] [address] 03/10/2019 12:00:00 AM EST eCW1 ([facility]) Outpatient Attender: Lakisha GUAN [facility] 02/24/2019 08:15:00 AM EST MEDENT ([facility] [address] [address] 02/23/2019 12:00:00 AM EST eCW1 ([facility]) [address] [place] [address] 01/31/2019 12:00:00 AM EST eCW1 ([facility]) [address] [place] [address] 01/28/2019 12:00:00 AM EST [facility]CW1 ([facility]) [address] [address] 01/28/2019 12:00:00 AM EST eCW1 ([facility]) [address] [place] [address] 01/19/2019 12:00:00 AM EST eCW1 ([facility]) Medications Medication Brand Name Start Date Product Form Dose Route Admi nistrative Instructions Pharmacy Instructions Status Indications Reaction Description Data Source(s) Docusate Sodium 50 MG / sennosides, MCFP 8.6 MG Oral Ta blet Senna S 8.6-50 MG Senna S 8.6-50 MG 03/13/2020 12:00:00 AM EST 1.0 {tablet_in_the_evening_as_needed} active Senna S 8.6-50 MG eCW1 ([facility]) Magnesium Hydroxide 80 MG/ML Oral Suspension Milk of M agnesia 400 MG/5ML Milk of Magnesia 400 MG/5ML 03/13/2020 12:00:00 AM EST 30.0 {ml} active Milk of Magnesia 400 MG/5ML eCW1 ([facility]) Bisacodyl 5 MG UNK 03/10/2020 12:00:00 AM EST 2.0 {tablets_a s_needed} active Bisacodyl 5 MG eCW1 ([facility]) montelukast 10 MG Oral Tablet Montelukast Sodium 10 MG Trell lukast Sodium 10 MG 12/16/2019 12:00:00 AM EDT 1.0 {tablet} active Montelukast Sodium 10 MG eCW1 ([facility]) montelukast 10 MG Oral Tablet Montelukast Sodium 10 MG Trell lukast Sodium 10 MG 12/16/2019 12:00:00 AM EDT 1.0 {tablet} active Montelukast Sodium 10 MG eCW1 ([facility]) montelukast 10 MG Oral Tablet Montelukast Sodium 10 MG Trell lukast Sodium 10 MG 12/16/2019 12:00:00 AM EDT 1.0 {tablet} active Montelukast Sodium 10 MG eCW1 ([facility]) montelukast 10 MG Oral Tablet Montelukast Sodium 10 MG Trell lukast Sodium 10 MG 12/16/2019 12:00:00 AM EDT 1.0 {tablet} active Montelukast Sodium 10 MG eCW1 ([facility]) montelukast 10 MG Oral Tablet Montelukast Sodium 10 MG Trell lukast Sodium 10 MG 12/16/2019 12:00:00 AM EDT 1.0 {tablet} active Montelukast Sodium 10 MG eCW1 ([facility]) montelukast 10 MG Oral Tablet Montelukast Sodium 10 MG Trell lukast Sodium 10 MG 12/16/2019 12:00:00 AM EDT 1.0 {tablet} active Montelukast Sodium 10 MG eCW1 ([facility]) montelukast 10 MG Oral Tablet Montelukast Sodium 10 MG Trell lukast Sodium 10 MG 12/16/2019 12:00:00 AM EDT 1.0 {tablet} active Montelukast Sodium 10 MG eCW1 ([facility]) montelukast 10 MG Oral Tablet Montelukast Sodium 10 MG Trell lukast Sodium 10 MG 12/16/2019 12:00:00 AM EDT 1.0 {tablet} active Montelukast Sodium 10 MG eCW1 ([facility]) montelukast 10 MG Oral Tablet Montelukast Sodium 10 MG Trell lukast Sodium 10 MG 12/16/2019 12:00:00 AM EDT 1.0 {tablet} active Montelukast Sodium 10 MG eCW1 ([facility]) montelukast 10 MG Oral Tablet Montelukast Sodium 10 MG Trell lukast Sodium 10 MG 12/16/2019 12:00:00 AM EDT 1.0 {tablet} active Montelukast Sodium 10 MG eCW1 ([facility]) montelukast 10 MG Oral Tablet Montelukast Sodium 10 MG Trell lukast Sodium 10 MG 12/16/2019 12:00:00 AM EDT 1.0 {tablet} active Montelukast Sodium 10 MG eCW1 ([facility]) montelukast 10 MG Oral Tablet Montelukast Sodium 10 MG Trell lukast Sodium 10 MG 12/16/2019 12:00:00 AM EDT 1.0 {tablet} active Montelukast Sodium 10 MG eCW1 ([facility]) montelukast 10 MG Oral Tablet Montelukast Sodium 10 MG Trell lukast Sodium 10 MG 12/16/2019 12:00:00 AM EDT 1.0 {tablet} active Montelukast Sodium 10 MG eCW1 ([facility]) montelukast 10 MG Oral Tablet Montelukast Sodium 10 MG Trell lukast Sodium 10 MG 12/16/2019 12:00:00 AM EDT 1.0 {tablet} active Montelukast Sodium 10 MG eCW1 ([facility]) montelukast 10 MG Oral Tablet Montelukast Sodium 10 MG Trell lukast Sodium 10 MG 12/16/2019 12:00:00 AM EDT 1.0 {tablet} active Montelukast Sodium 10 MG eCW1 ([facility]) montelukast 10 MG Oral Tablet Montelukast Sodium 10 MG Trell lukast Sodium 10 MG 12/16/2019 12:00:00 AM EDT 1.0 {tablet} active Montelukast Sodium 10 MG eCW1 ([facility]) montelukast 10 MG Oral Tablet Montelukast Sodium 10 MG Trell lukast Sodium 10 MG 12/16/2019 12:00:00 AM EDT 1.0 {tablet} active Montelukast Sodium 10 MG eCW1 ([facility]) zoledronic acid 0.05 MG/ML Injectable Solution [Reclas t] Reclast 5 MG/100ML Reclast 5 MG/100ML 12/06/2019 12:00:00 AM EDT active Reclast 5 MG/100ML eCW1 ([facility]) zoledronic acid 0.05 MG/ML Injectable Solution [Reclas t] Reclast 5 MG/100ML Reclast 5 MG/100ML 12/06/2019 12:00:00 AM EDT active Reclast 5 MG/100ML eCW1 ([facility]) zoledronic acid 0.05 MG/ML Injectable Solution [Reclas t] Reclast 5 MG/100ML Reclast 5 MG/100ML 12/06/2019 12:00:00 AM EDT active Reclast 5 MG/100ML eCW1 ([facility]) zoledronic acid 0.05 MG/ML Injectable Solution [Reclas t] Reclast 5 MG/100ML Reclast 5 MG/100ML 12/06/2019 12:00:00 AM EDT active Reclast 5 MG/100ML eCW1 ([facility]) zoledronic acid 0.05 MG/ML Injectable Solution [Reclas t] Reclast 5 MG/100ML Reclast 5 MG/100ML 12/06/2019 12:00:00 AM EDT active Reclast 5 MG/100ML eCW1 ([facility]) zoledronic acid 0.05 MG/ML Injectable Solution [Reclas t] Reclast 5 MG/100ML Reclast 5 MG/100ML 12/06/2019 12:00:00 AM EDT active Reclast 5 MG/100ML eCW1 ([facility]) zoledronic acid 0.05 MG/ML Injectable Solution [Reclas t] Reclast 5 MG/100ML Reclast 5 MG/100ML 12/06/2019 12:00:00 AM EDT active Reclast 5 MG/100ML eCW1 ([facility]) zoledronic acid 0.05 MG/ML Injectable Solution [Reclas t] Reclast 5 MG/100ML Reclast 5 MG/100ML 12/06/2019 12:00:00 AM EDT active Reclast 5 MG/100ML eCW1 ([facility]) zoledronic acid 0.05 MG/ML Injectable Solution [Reclas t] Reclast 5 MG/100ML Reclast 5 MG/100ML 12/06/2019 12:00:00 AM EDT active Reclast 5 MG/100ML eCW1 ([facility]) zoledronic acid 0.05 MG/ML Injectable Solution [Reclas t] Reclast 5 MG/100ML Reclast 5 MG/100ML 12/06/2019 12:00:00 AM EDT active Reclast 5 MG/100ML eCW1 ([facility]) zoledronic acid 0.05 MG/ML Injectable Solution [Reclas t] Reclast 5 MG/100ML Reclast 5 MG/100ML 12/06/2019 12:00:00 AM EDT active Reclast 5 MG/100ML eCW1 ([facility]) zoledronic acid 0.05 MG/ML Injectable Solution [Reclas t] Reclast 5 MG/100ML Reclast 5 MG/100ML 12/06/2019 12:00:00 AM EDT active Reclast 5 MG/100ML eCW1 ([facility]) zoledronic acid 0.05 MG/ML Injectable Solution [Reclas t] Reclast 5 MG/100ML Reclast 5 MG/100ML 12/06/2019 12:00:00 AM EDT active Reclast 5 MG/100ML eCW1 ([facility]) zoledronic acid 0.05 MG/ML Injectable Solution [Reclas t] Reclast 5 MG/100ML Reclast 5 MG/100ML 12/06/2019 12:00:00 AM EDT active Reclast 5 MG/100ML eCW1 ([facility]) Flonase Allergy Relief 50 MCG/ACT Flonase Allergy Relief 50 MCG/ACT 12/02/2019 12:00:00 AM EDT 1.0 {spray_in_each_nostril} acti ve Flonase Allergy Relief 50 MCG/ACT eCW1 ([facility]) Flonase Allergy Relief 50 MCG/ACT Flonase Allergy Relief 50 MCG/ACT 12/02/2019 12:00:00 AM EDT 1.0 {spray_in_each_nostril} acti ve Flonase Allergy Relief 50 MCG/ACT eCW1 ([facility]) Flonase Allergy Relief 50 MCG/ACT Flonase Allergy Relief 50 MCG/ACT 12/02/2019 12:00:00 AM EDT 1.0 {spray_in_each_nostril} acti ve Flonase Allergy Relief 50 MCG/ACT eCW1 ([facility]) Flonase Allergy Relief 50 MCG/ACT Flonase Allergy Relief 50 MCG/ACT 12/02/2019 12:00:00 AM EDT 1.0 {spray_in_each_nostril} acti ve Flonase Allergy Relief 50 MCG/ACT eCW1 ([facility]) Flonase Allergy Relief 50 MCG/ACT Flonase Allergy Relief 50 MCG/ACT 12/02/2019 12:00:00 AM EDT 1.0 {spray_in_each_nostril} acti ve Flonase Allergy Relief 50 MCG/ACT eCW1 ([facility]) Flonase Allergy Relief 50 MCG/ACT Flonase Allergy Relief 50 MCG/ACT 12/02/2019 12:00:00 AM EDT 1.0 {spray_in_each_nostril} acti ve Flonase Allergy Relief 50 MCG/ACT eCW1 ([facility]) Flonase Allergy Relief 50 MCG/ACT Flonase Allergy Relief 50 MCG/ACT 12/02/2019 12:00:00 AM EDT 1.0 {spray_in_each_nostril} acti ve Flonase Allergy Relief 50 MCG/ACT eCW1 ([facility]) Flonase Allergy Relief 50 MCG/ACT Flonase Allergy Relief 50 MCG/ACT 12/02/2019 12:00:00 AM EDT 1.0 {spray_in_each_nostril} acti ve Flonase Allergy Relief 50 MCG/ACT eCW1 ([facility]) Flonase Allergy Relief 50 MCG/ACT Flonase Allergy Relief 50 MCG/ACT 12/02/2019 12:00:00 AM EDT 1.0 {spray_in_each_nostril} acti ve Flonase Allergy Relief 50 MCG/ACT eCW1 ([facility]) Flonase Allergy Relief 50 MCG/ACT Flonase Allergy Relief 50 MCG/ACT 12/02/2019 12:00:00 AM EDT 1.0 {spray_in_each_nostril} acti ve Flonase Allergy Relief 50 MCG/ACT eCW1 ([facility]) Flonase Allergy Relief 50 MCG/ACT Flonase Allergy Relief 50 MCG/ACT 12/02/2019 12:00:00 AM EDT 1.0 {spray_in_each_nostril} acti ve Flonase Allergy Relief 50 MCG/ACT eCW1 ([facility]) Flonase Allergy Relief 50 MCG/ACT Flonase Allergy Relief 50 MCG/ACT 12/02/2019 12:00:00 AM EDT 1.0 {spray_in_each_nostril} acti ve Flonase Allergy Relief 50 MCG/ACT eCW1 ([facility]) Flonase Allergy Relief 50 MCG/ACT Flonase Allergy Relief 50 MCG/ACT 12/02/2019 12:00:00 AM EDT 1.0 {spray_in_each_nostril} acti ve Flonase Allergy Relief 50 MCG/ACT eCW1 ([facility]) Flonase Allergy Relief 50 MCG/ACT Flonase Allergy Relief 50 MCG/ACT 12/02/2019 12:00:00 AM EDT 1.0 {spray_in_each_nostril} acti ve Flonase Allergy Relief 50 MCG/ACT eCW1 ([facility]) Flonase Allergy Relief 50 MCG/ACT Flonase Allergy Relief 50 MCG/ACT 12/02/2019 12:00:00 AM EDT 1.0 {spray_in_each_nostril} acti ve Flonase Allergy Relief 50 MCG/ACT eCW1 ([facility]) Flonase Allergy Relief 50 MCG/ACT Flonase Allergy Relief 50 MCG/ACT 12/02/2019 12:00:00 AM EDT 1.0 {spray_in_each_nostril} acti ve Flonase Allergy Relief 50 MCG/ACT eCW1 ([facility]) Flonase Allergy Relief 50 MCG/ACT Flonase Allergy Relief 50 MCG/ACT 12/02/2019 12:00:00 AM EDT 1.0 {spray_in_each_nostril} acti ve Flonase Allergy Relief 50 MCG/ACT eCW1 ([facility]) Flonase Allergy Relief 50 MCG/ACT Flonase Allergy Relief 50 MCG/ACT 12/02/2019 12:00:00 AM EDT 1.0 {spray_in_each_nostril} acti ve Flonase Allergy Relief 50 MCG/ACT eCW1 ([facility]) Flonase Allergy Relief 50 MCG/ACT Flonase Allergy Relief 50 MCG/ACT 12/02/2019 12:00:00 AM EDT 1.0 {spray_in_each_nostril} acti ve Flonase Allergy Relief 50 MCG/ACT eCW1 ([facility]) Flonase Allergy Relief 50 MCG/ACT Flonase Allergy Relief 50 MCG/ACT 12/02/2019 12:00:00 AM EDT 1.0 {spray_in_each_nostril} acti ve Flonase Allergy Relief 50 MCG/ACT eCW1 ([facility]) Flonase Allergy Relief 50 MCG/ACT Flonase Allergy Relief 50 MCG/ACT 12/02/2019 12:00:00 AM EDT 1.0 {spray_in_each_nostril} acti ve Flonase Allergy Relief 50 MCG/ACT eCW1 ([facility]) Flonase Allergy Relief 50 MCG/ACT Flonase Allergy Relief 50 MCG/ACT 12/02/2019 12:00:00 AM EDT 1.0 {spray_in_each_nostril} acti ve Flonase Allergy Relief 50 MCG/ACT eCW1 ([facility]) May Have - UNK 11/25/2019 12:00:00 AM EDT active May Have - eCW1 ([facility]) InCare [employer]ight 14FR/20CM 1 UNK 11/25/2019 12:00:00 AM EDT active [employer] 14FR/20CM 1 eCW1 ([facility]) May Have - UNK 11/25/2019 12:00:00 AM EDT active May Have - eCW1 ([facility]) [employer] 14FR/20CM 1 UNK 11/25/2019 12:00:00 AM EDT active [employer] 14FR/20CM 1 eCW1 ([facility]) Sodium Phosphate, Dibasic 59.3 MG/ML / S odium Phosphate, Monobasic 161 MG/ML Enema Fleet Enema 7-19 GM/118ML Fleet Enema 7-19 GM/118ML 11/25/2019 12:00:00 AM EDT active Fleet Enema 7-19 GM/118ML eCW1 ([facility]) Sodium Phosphate, Dibasic 59.3 MG/ML / S odium Phosphate, Monobasic 161 MG/ML Enema Fleet Enema 7-19 GM/118ML Fleet Enema 7-19 GM/118ML 11/25/2019 12:00:00 AM EDT active Fleet Enema 7-19 GM/118ML eCW1 ([facility]) Bisacodyl 10 MG Rectal Suppository Bisacodyl 10 MG 11/25/2019 12:00 :00 AM EDT 1.0 {suppository_as_needed} active Bisa codyl 10 MG eCW1 ([facility]) May Have - UNK 11/25/2019 12:00:00 AM EDT active May Have - eCW1 ([facility]) Sodium Phosphate, Dibasic 59.3 MG/ML / S odium Phosphate, Monobasic 161 MG/ML Enema Fleet Enema 7-19 GM/118ML Fleet Enema 7-19 GM/118ML 11/25/2019 12:00:00 AM EDT active Fleet Enema 7-19 GM/118ML eCW1 ([facility]) Bisacodyl 10 MG Rectal Suppository Bisacodyl 10 MG 11/25/2019 12:00 :00 AM EDT 1.0 {suppository_as_needed} active Bisa codyl 10 MG eCW1 ([facility]) Sodium Phosphate, Dibasic 59.3 MG/ML / S odium Phosphate, Monobasic 161 MG/ML Enema Fleet Enema 7-19 GM/118ML Fleet Enema 7-19 GM/118ML 11/25/2019 12:00:00 AM EDT active Fleet Enema 7-19 GM/118ML eCW1 ([facility]) May Have - UNK 11/25/2019 12:00:00 AM EDT active May Have - eCW1 ([facility]) InCare Straight 14FR/20CM 1 UNK 11/25/2019 12:00:00 AM EDT active InCare Straight 14FR/20CM 1 eCW1 ([facility]) Sodium Phosphate, Dibasic 59.3 MG/ML / S odium Phosphate, Monobasic 161 MG/ML Enema Fleet Enema 7-19 GM/118ML Fleet Enema 7-19 GM/118ML 11/25/2019 12:00:00 AM EDT active Fleet Enema 7-19 GM/118ML eCW1 ([facility]) Sodium Phosphate, Dibasic 59.3 MG/ML / S odium Phosphate, Monobasic 161 MG/ML Enema Fleet Enema 7-19 GM/118ML Fleet Enema 7-19 GM/118ML 11/25/2019 12:00:00 AM EDT active Fleet Enema 7-19 GM/118ML eCW1 ([facility]) May Have - UNK 11/25/2019 12:00:00 AM EDT active May Have - eCW1 ([facility]) Bisacodyl 10 MG Rectal Suppository Bisacodyl 10 MG 11/25/2019 12:00 :00 AM EDT 1.0 {suppository_as_needed} active Bisa codyl 10 MG eCW1 ([facility]) Sodium Phosphate, Dibasic 59.3 MG/ML / S odium Phosphate, Monobasic 161 MG/ML Enema Fleet Enema 7-19 GM/118ML Fleet Enema 7-19 GM/118ML 11/25/2019 12:00:00 AM EDT active Fleet Enema 7-19 GM/118ML eCW1 ([facility]) InCare Straight 14FR/20CM 1 UNK 11/25/2019 12:00:00 AM EDT active InCare [facility] 14FR/20CM 1 eCW1 ([facility]) Sodium Phosphate, Dibasic 59.3 MG/ML / S odium Phosphate, Monobasic 161 MG/ML Enema Fleet Enema 7-19 GM/118ML Fleet Enema 7-19 GM/118ML 11/25/2019 12:00:00 AM EDT active Fleet Enema 7-19 GM/118ML eCW1 ([facility]) Bisacodyl 10 MG Rectal Suppository Bisacodyl 10 MG 11/25/2019 12:00 :00 AM EDT 1.0 {suppository_as_needed} active Bisa codyl 10 MG eCW1 ([facility]) InCare Straight 14FR/20CM 1 UNK 11/25/2019 12:00:00 AM EDT active InCare [facility] 14FR/20CM 1 eCW1 ([facility]) Sodium Phosphate, Dibasic 59.3 MG/ML / S odium Phosphate, Monobasic 161 MG/ML Enema Fleet Enema 7-19 GM/118ML Fleet Enema 7-19 GM/118ML 11/25/2019 12:00:00 AM EDT active Fleet Enema 7-19 GM/118ML eCW1 ([facility]) May Have - UNK 11/25/2019 12:00:00 AM EDT active May Have - eCW1 ([facility]) InCare Straight 14FR/20CM 1 UNK 11/25/2019 12:00:00 AM EDT active InCare Stra[facility] 14FR/20CM 1 eCW1 ([facility]) Sodium Phosphate, Dibasic 59.3 MG/ML / S odium Phosphate, Monobasic 161 MG/ML Enema Fleet Enema 7-19 GM/118ML Fleet Enema 7-19 GM/118ML 11/25/2019 12:00:00 AM EDT active Fleet Enema 7-19 GM/118ML eCW1 ([facility]) Bisacodyl 10 MG Rectal Suppository Bisacodyl 10 MG 11/25/2019 12:00 :00 AM EDT 1.0 {suppository_as_needed} active Bisa codyl 10 MG eCW1 ([facility]) May Have - UNK 11/25/2019 12:00:00 AM EDT active May Have - eCW1 ([facility]) May Have - UNK 11/25/2019 12:00:00 AM EDT active May Have - eCW1 ([facility]) Bisacodyl 10 MG Rectal Suppository Bisacodyl 10 MG 11/25/2019 12:00 :00 AM EDT 1.0 {suppository_as_needed} active Bisa codyl 10 MG eCW1 ([facility]) InCare Straight 14FR/20CM 1 UNK 11/25/2019 12:00:00 AM EDT active InCare Straight 14FR/20CM 1 eCW1 ([facility]) Bisacodyl 10 MG Rectal Suppository Bisacodyl 10 MG 11/25/2019 12:00 :00 AM EDT 1.0 {suppository_as_needed} active Bisa codyl 10 MG eCW1 ([facility]) Sodium Phosphate, Dibasic 59.3 MG/ML / S odium Phosphate, Monobasic 161 MG/ML Enema Fleet Enema 7-19 GM/118ML Fleet Enema 7-19 GM/118ML 11/25/2019 12:00:00 AM EDT active Fleet Enema 7-19 GM/118ML eCW1 ([facility]) Sodium Phosphate, Dibasic 59.3 MG/ML / S odium Phosphate, Monobasic 161 MG/ML Enema Fleet Enema 7-19 GM/118ML Fleet Enema 7-19 GM/118ML 11/25/2019 12:00:00 AM EDT active Fleet Enema 7-19 GM/118ML eCW1 ([facility]) Bisacodyl 10 MG Rectal Suppository Bisacodyl 10 MG 11/25/2019 12:00 :00 AM EDT 1.0 {suppository_as_needed} active Bisa codyl 10 MG eCW1 ([facility]) Bisacodyl 10 MG Rectal Suppository Bisacodyl 10 MG 11/25/2019 12:00 :00 AM EDT 1.0 {suppository_as_needed} active Bisa codyl 10 MG eCW1 ([facility]) Bisacodyl 10 MG Rectal Suppository Bisacodyl 10 MG 11/25/2019 12:00 :00 AM EDT 1.0 {suppository_as_needed} active Bisa codyl 10 MG eCW1 ([facility]) InCare Straight 14FR/20CM 1 UNK 11/25/2019 12:00:00 AM EDT active InCare [facility]ight 14FR/20CM 1 eCW1 ([facility]) May Have - UNK 11/25/2019 12:00:00 AM EDT active May Have - eCW1 ([facility]) May Have - UNK 11/25/2019 12:00:00 AM EDT active May Have - eCW1 ([facility]) InCare Straight 14FR/20CM 1 UNK 11/25/2019 12:00:00 AM EDT active InCare Straight 14FR/20CM 1 eCW1 ([facility]) May Have - UNK 11/25/2019 12:00:00 AM EDT active May Have - eCW1 ([facility]) [facility]Care [facility] 14FR/20CM 1 UNK 11/25/2019 12:00:00 AM EDT active InCare Straight 14FR/20CM 1 eCW1 ([facility]) Bisacodyl 10 MG Rectal Suppository Bisacodyl 10 MG 11/25/2019 12:00 :00 AM EDT 1.0 {suppository_as_needed} active Bisa codyl 10 MG eCW1 ([facility]) InCare Straight 14FR/20CM 1 UNK 11/25/2019 12:00:00 AM EDT active InCare Stra[facility] 14FR/20CM 1 eCW1 ([facility]) Sodium Phosphate, Dibasic 59.3 MG/ML / S odium Phosphate, Monobasic 161 MG/ML Enema Fleet Enema 7-19 GM/118ML Fleet Enema 7-19 GM/118ML 11/25/2019 12:00:00 AM EDT active Fleet Enema 7-19 GM/118ML eCW1 ([facility]) Bisacodyl 10 MG Rectal Suppository Bisacodyl 10 MG 11/25/2019 12:00 :00 AM EDT 1.0 {suppository_as_needed} active Bisa codyl 10 MG eCW1 ([facility]) May Have - UNK 11/25/2019 12:00:00 AM EDT active May Have - eCW1 ([facility]) May Have - UNK 11/25/2019 12:00:00 AM EDT active May Have - eCW1 ([facility]) Sodium Phosphate, Dibasic 59.3 MG/ML / S odium Phosphate, Monobasic 161 MG/ML Enema Fleet Enema 7-19 GM/118ML Fleet Enema 7-19 GM/118ML 11/25/2019 12:00:00 AM EDT active Fleet Enema 7-19 GM/118ML eCW1 ([facility]) May Have - UNK 11/25/2019 12:00:00 AM EDT active May Have - eCW1 ([facility]) May Have - UNK 11/25/2019 12:00:00 AM EDT active May Have - eCW1 ([facility]) InCare Straight 14FR/20CM 1 UNK 11/25/2019 12:00:00 AM EDT active InCare Straight 14FR/20CM 1 eCW1 ([facility]) Sodium Phosphate, Dibasic 59.3 MG/ML / S odium Phosphate, Monobasic 161 MG/ML Enema Fleet Enema 7-19 GM/118ML Fleet Enema 7-19 GM/118ML 11/25/2019 12:00:00 AM EDT active Fleet Enema 7-19 GM/118ML eCW1 ([facility]) May Have - UNK 11/25/2019 12:00:00 AM EDT active June Have - eCW1 ([facility]) Sodium Phosphate, Dibasic 59.3 MG/ML / S odium Phosphate, Monobasic 161 MG/ML Enema Fleet Enema 7-19 GM/118ML Fleet Enema 7-19 GM/118ML 11/25/2019 12:00:00 AM EDT active Fleet Enema 7-19 GM/118ML eCW1 ([facility]) Bisacodyl 10 MG Rectal Suppository Bisacodyl 10 MG 11/25/2019 12:00 :00 AM EDT 1.0 {suppository_as_needed} active Bisa codyl 10 MG eCW1 ([facility]) Bisacodyl 10 MG Rectal Suppository Bisacodyl 10 MG 11/25/2019 12:00 :00 AM EDT 1.0 {suppository_as_needed} active Bisa codyl 10 MG eCW1 ([facility]) InCare Straight 14FR/20CM 1 UNK 11/25/2019 12:00:00 AM EDT active InCare Straight 14FR/20CM 1 eCW1 ([facility]) Sodium Phosphate, Dibasic 59.3 MG/ML / S odium Phosphate, Monobasic 161 MG/ML Enema Fleet Enema 7-19 GM/118ML Fleet Enema 7-19 GM/118ML 11/25/2019 12:00:00 AM EDT active Fleet Enema 7-19 GM/118ML eCW1 ([facility]) Bisacodyl 10 MG Rectal Suppository Bisacodyl 10 MG 11/25/2019 12:00 :00 AM EDT 1.0 {suppository_as_needed} active Bisa codyl 10 MG eCW1 ([facility]) Bisacodyl 10 MG Rectal Suppository Bisacodyl 10 MG 11/25/2019 12:00 :00 AM EDT 1.0 {suppository_as_needed} active Bisa codyl 10 MG eCW1 ([facility]) May Have - UNK 11/25/2019 12:00:00 AM EDT active May Have - eCW1 ([facility]) Sodium Phosphate, Dibasic 59.3 MG/ML / S odium Phosphate, Monobasic 161 MG/ML Enema Fleet Enema 7-19 GM/118ML Fleet Enema 7-19 GM/118ML 11/25/2019 12:00:00 AM EDT active Fleet Enema 7-19 GM/118ML eCW1 ([facility]) Sodium Phosphate, Dibasic 59.3 MG/ML / S odium Phosphate, Monobasic 161 MG/ML Enema Fleet Enema 7-19 GM/118ML Fleet Enema 7-19 GM/118ML 11/25/2019 12:00:00 AM EDT active Fleet Enema 7-19 GM/118ML eCW1 ([facility]) May Have - UNK 11/25/2019 12:00:00 AM EDT active May Have - eCW1 ([facility]) InCare Straight 14FR/20CM 1 UNK 11/25/2019 12:00:00 AM EDT active InCare Straight 14FR/20CM 1 eCW1 ([facility]) May Have - UNK 11/25/2019 12:00:00 AM EDT active May Have - eCW1 ([facility]) InCare Straight 14FR/20CM 1 UNK 11/25/2019 12:00:00 AM EDT active InCare Straight 14FR/20CM 1 eCW1 ([facility]) May Have - UNK 11/25/2019 12:00:00 AM EDT active May Have - eCW1 ([facility]) InCare Straight 14FR/20CM 1 UNK 11/25/2019 12:00:00 AM EDT active InCare Straight 14FR/20CM 1 eCW1 ([facility]) Sodium Phosphate, Dibasic 59.3 MG/ML / S odium Phosphate, Monobasic 161 MG/ML Enema Fleet Enema 7-19 GM/118ML Fleet Enema 7-19 GM/118ML 11/25/2019 12:00:00 AM EDT active Fleet Enema 7-19 GM/118ML eCW1 ([facility]) Sodium Phosphate, Dibasic 59.3 MG/ML / S odium Phosphate, Monobasic 161 MG/ML Enema Fleet Enema 7-19 GM/118ML Fleet Enema 7-19 GM/118ML 11/25/2019 12:00:00 AM EDT active Fleet Enema 7-19 GM/118ML eCW1 ([facility]) InCare Straight 14FR/20CM 1 UNK 11/25/2019 12:00:00 AM EDT active InCare Straight 14FR/20CM 1 eCW1 ([facility]) May Have - UNK 11/25/2019 12:00:00 AM EDT active May Have - eCW1 ([facility]) Sodium Phosphate, Dibasic 59.3 MG/ML / S odium Phosphate, Monobasic 161 MG/ML Enema Fleet Enema 7-19 GM/118ML Fleet Enema 7-19 GM/118ML 11/25/2019 12:00:00 AM EDT active Fleet Enema 7-19 GM/118ML eCW1 ([facility]) InCare Straight 14FR/20CM 1 UNK 11/25/2019 12:00:00 AM EDT active InCare Straight 14FR/20CM 1 eCW1 ([facility]) InCare Straight 14FR/20CM 1 UNK 11/25/2019 12:00:00 AM EDT active InCare Straight 14FR/20CM 1 eCW1 ([facility]) Sodium Phosphate, Dibasic 59.3 MG/ML / S odium Phosphate, Monobasic 161 MG/ML Enema Fleet Enema 7-19 GM/118ML Fleet Enema 7-19 GM/118ML 11/25/2019 12:00:00 AM EDT active Fleet Enema 7-19 GM/118ML eCW1 ([facility]) InCare Straight 14FR/20CM 1 UNK 11/25/2019 12:00:00 AM EDT active InCare Straight 14FR/20CM 1 eCW1 ([facility]) Bisacodyl 10 MG Rectal Suppository Bisacodyl 10 MG 11/25/2019 12:00 :00 AM EDT 1.0 {suppository_as_needed} active Bisa codyl 10 MG eCW1 ([facility]) InCare Straight 14FR/20CM 1 UNK 11/25/2019 12:00:00 AM EDT active InCare Straight 14FR/20CM 1 eCW1 ([facility]) Bisacodyl 10 MG Rectal Suppository Bisacodyl 10 MG 11/25/2019 12:00 :00 AM EDT 1.0 {suppository_as_needed} active Bisa codyl 10 MG eCW1 ([facility]) Sodium Phosphate, Dibasic 59.3 MG/ML / S odium Phosphate, Monobasic 161 MG/ML Enema Fleet Enema 7-19 GM/118ML Fleet Enema 7-19 GM/118ML 11/25/2019 12:00:00 AM EDT active Fleet Enema 7-19 GM/118ML eCW1 ([facility]) InCare Straight 14FR/20CM 1 UNK 11/25/2019 12:00:00 AM EDT active InCare Straight 14FR/20CM 1 eCW1 ([facility]) May Have - UNK 11/25/2019 12:00:00 AM EDT active May Have - eCW1 ([facility]) Bisacodyl 10 MG Rectal Suppository Bisacodyl 10 MG 11/25/2019 12:00 :00 AM EDT 1.0 {suppository_as_needed} active Bisa codyl 10 MG eCW1 ([facility]) Bisacodyl 10 MG Rectal Suppository Bisacodyl 10 MG 11/25/2019 12:00 :00 AM EDT 1.0 {suppository_as_needed} active Bisa codyl 10 MG eCW1 ([facility]) Bisacodyl 10 MG Rectal Suppository Bisacodyl 10 MG 11/25/2019 12:00 :00 AM EDT 1.0 {suppository_as_needed} active Bisa codyl 10 MG eCW1 ([facility]) May Have - UNK 11/25/2019 12:00:00 AM EDT active May Have - eCW1 ([facility]) May Have - UNK 11/25/2019 12:00:00 AM EDT active May Have - eCW1 ([facility]) InCare Straight 14FR/20CM 1 UNK 11/25/2019 12:00:00 AM EDT active InCare Straight 14FR/20CM 1 eCW1 ([facility]) Sodium Phosphate, Dibasic 59.3 MG/ML / S odium Phosphate, Monobasic 161 MG/ML Enema Fleet Enema 7-19 GM/118ML Fleet Enema 7-19 GM/118ML 11/25/2019 12:00:00 AM EDT active Fleet Enema 7-19 GM/118ML eCW1 ([facility]) May Have - UNK 11/25/2019 12:00:00 AM EDT active May Have - eCW1 ([facility]) May Have - UNK 11/25/2019 12:00:00 AM EDT active May Have - eCW1 ([facility]) Bisacodyl 10 MG Rectal Suppository Bisacodyl 10 MG 11/25/2019 12:00 :00 AM EDT 1.0 {suppository_as_needed} active Bisa codyl 10 MG eCW1 ([facility]) InCare Straight 14FR/20CM 1 UNK 11/25/2019 12:00:00 AM EDT active InCare Straight 14FR/20CM 1 eCW1 ([facility]) Bisacodyl 10 MG Rectal Suppository Bisacodyl 10 MG 11/25/2019 12:00 :00 AM EDT 1.0 {suppository_as_needed} active Bisa codyl 10 MG eCW1 ([facility]) Bisacodyl 10 MG Rectal Suppository Bisacodyl 10 MG 11/25/2019 12:00 :00 AM EDT 1.0 {suppository_as_needed} active Bisa codyl 10 MG eCW1 ([facility]) May Have - UNK 11/25/2019 12:00:00 AM EDT active May Have - eCW1 ([facility]) InCare Straight 14FR/20CM 1 UNK 11/25/2019 12:00:00 AM EDT active InCare Straight 14FR/20CM 1 eCW1 ([facility]) Sodium Phosphate, Dibasic 59.3 MG/ML / S odium Phosphate, Monobasic 161 MG/ML Enema Fleet Enema 7-19 GM/118ML Fleet Enema 7-19 GM/118ML 11/25/2019 12:00:00 AM EDT active Fleet Enema 7-19 GM/118ML eCW1 ([facility]) Bisacodyl 10 MG Rectal Suppository Bisacodyl 10 MG 11/25/2019 12:00 :00 AM EDT 1.0 {suppository_as_needed} active Bisa codyl 10 MG eCW1 ([facility]) Bisacodyl 10 MG Rectal Suppository Bisacodyl 10 MG 11/25/2019 12:00 :00 AM EDT 1.0 {suppository_as_needed} active Bisa codyl 10 MG eCW1 ([facility]) InCare Straight 14FR/20CM 1 UNK 11/25/2019 12:00:00 AM EDT active InCare Straight 14FR/20CM 1 eCW1 ([facility]) InCare Straight 14FR/20CM 1 UNK 11/25/2019 12:00:00 AM EDT active InCare Straight 14FR/20CM 1 eCW1 ([facility]) Bisacodyl 10 MG Rectal Suppository Bisacodyl 10 MG 11/25/2019 12:00 :00 AM EDT 1.0 {suppository_as_needed} active Bisa codyl 10 MG eCW1 ([facility]) Sodium Phosphate, Dibasic 59.3 MG/ML / S odium Phosphate, Monobasic 161 MG/ML Enema Fleet Enema 7-19 GM/118ML Fleet Enema 7-19 GM/118ML 11/25/2019 12:00:00 AM EDT active Fleet Enema 7-19 GM/118ML eCW1 ([facility]) NITROFURANTOIN, MACROCRYSTALS 25 MG / Ni trofurantoin, Monohydrate 75 MG Oral Capsule Nitrofurantoin Monohyd Macro 100 MG Nitrofurantoin Monohyd Macro 100 MG 08/15/2019 12:00:00 AM EDT active Nitrofurantoin Monohyd Macro 100 MG eCW1 ([facility]) NITROFURANTOIN, MACROCRYSTALS 25 MG / Ni trofurantoin, Monohydrate 75 MG Oral Capsule Nitrofurantoin Monohyd Macro 100 MG Nitrofurantoin Monohyd Macro 100 MG 08/15/2019 12:00:00 AM EDT active Nitrofurantoin Monohyd Macro 100 MG eCW1 ([facility]) NITROFURANTOIN, MACROCRYSTALS 25 MG / Ni trofurantoin, Monohydrate 75 MG Oral Capsule Nitrofurantoin Monohyd Macro 100 MG Nitrofurantoin Monohyd Macro 100 MG 08/15/2019 12:00:00 AM EDT active Nitrofurantoin Monohyd Macro 100 MG eCW1 ([facility]) NITROFURANTOIN, MACROCRYSTALS 25 MG / Ni trofurantoin, Monohydrate 75 MG Oral Capsule Nitrofurantoin Monohyd Macro 100 MG Nitrofurantoin Monohyd Macro 100 MG 08/15/2019 12:00:00 AM EDT active Nitrofurantoin Monohyd Macro 100 MG eCW1 ([facility]) NITROFURANTOIN, MACROCRYSTALS 25 MG / Ni trofurantoin, Monohydrate 75 MG Oral Capsule Nitrofurantoin Monohyd Macro 100 MG Nitrofurantoin Monohyd Macro 100 MG 08/15/2019 12:00:00 AM EDT active Nitrofurantoin Monohyd Macro 100 MG eCW1 ([facility]) NITROFURANTOIN, MACROCRYSTALS 25 MG / Ni trofurantoin, Monohydrate 75 MG Oral Capsule Nitrofurantoin Monohyd Macro 100 MG Nitrofurantoin Monohyd Macro 100 MG 08/15/2019 12:00:00 AM EDT active Nitrofurantoin Monohyd Macro 100 MG eCW1 ([facility]) NITROFURANTOIN, MACROCRYSTALS 25 MG / Ni trofurantoin, Monohydrate 75 MG Oral Capsule Nitrofurantoin Monohyd Macro 100 MG Nitrofurantoin Monohyd Macro 100 MG 08/15/2019 12:00:00 AM EDT active Nitrofurantoin Monohyd Macro 100 MG eCW1 ([facility]) NITROFURANTOIN, MACROCRYSTALS 25 MG / Ni trofurantoin, Monohydrate 75 MG Oral Capsule Nitrofurantoin Monohyd Macro 100 MG Nitrofurantoin Monohyd Macro 100 MG 08/15/2019 12:00:00 AM EDT active Nitrofurantoin Monohyd Macro 100 MG eCW1 ([facility]) NITROFURANTOIN, MACROCRYSTALS 25 MG / Ni trofurantoin, Monohydrate 75 MG Oral Capsule Nitrofurantoin Monohyd Macro 100 MG Nitrofurantoin Monohyd Macro 100 MG 08/15/2019 12:00:00 AM EDT active Nitrofurantoin Monohyd Macro 100 MG eCW1 ([facility]) NITROFURANTOIN, MACROCRYSTALS 25 MG / Ni trofurantoin, Monohydrate 75 MG Oral Capsule Nitrofurantoin Monohyd Macro 100 MG Nitrofurantoin Monohyd Macro 100 MG 08/15/2019 12:00:00 AM EDT active Nitrofurantoin Monohyd Macro 100 MG eCW1 ([facility]) NITROFURANTOIN, MACROCRYSTALS 25 MG / Ni trofurantoin, Monohydrate 75 MG Oral Capsule Nitrofurantoin Monohyd Macro 100 MG Nitrofurantoin Monohyd Macro 100 MG 08/15/2019 12:00:00 AM EDT active Nitrofurantoin Monohyd Macro 100 MG eCW1 ([facility]) NITROFURANTOIN, MACROCRYSTALS 25 MG / Ni trofurantoin, Monohydrate 75 MG Oral Capsule Nitrofurantoin Monohyd Macro 100 MG Nitrofurantoin Monohyd Macro 100 MG 08/15/2019 12:00:00 AM EDT active Nitrofurantoin Monohyd Macro 100 MG eCW1 ([facility]) NITROFURANTOIN, MACROCRYSTALS 25 MG / Ni trofurantoin, Monohydrate 75 MG Oral Capsule Nitrofurantoin Monohyd Macro 100 MG Nitrofurantoin Monohyd Macro 100 MG 08/15/2019 12:00:00 AM EDT active Nitrofurantoin Monohyd Macro 100 MG eCW1 ([facility]) NITROFURANTOIN, MACROCRYSTALS 25 MG / Ni trofurantoin, Monohydrate 75 MG Oral Capsule Nitrofurantoin Monohyd Macro 100 MG Nitrofurantoin Monohyd Macro 100 MG 08/15/2019 12:00:00 AM EDT active Nitrofurantoin Monohyd Macro 100 MG eCW1 ([facility]) NITROFURANTOIN, MACROCRYSTALS 25 MG / Ni trofurantoin, Monohydrate 75 MG Oral Capsule Nitrofurantoin Monohyd Macro 100 MG Nitrofurantoin Monohyd Macro 100 MG 08/15/2019 12:00:00 AM EDT active Nitrofurantoin Monohyd Macro 100 MG eCW1 ([facility]) NITROFURANTOIN, MACROCRYSTALS 25 MG / Ni trofurantoin, Monohydrate 75 MG Oral Capsule Nitrofurantoin Monohyd Macro 100 MG Nitrofurantoin Monohyd Macro 100 MG 08/15/2019 12:00:00 AM EDT active Nitrofurantoin Monohyd Macro 100 MG eCW1 ([facility]) NITROFURANTOIN, MACROCRYSTALS 25 MG / Ni trofurantoin, Monohydrate 75 MG Oral Capsule Nitrofurantoin Monohyd Macro 100 MG Nitrofurantoin Monohyd Macro 100 MG 08/15/2019 12:00:00 AM EDT active Nitrofurantoin Monohyd Macro 100 MG eCW1 ([facility]) NITROFURANTOIN, MACROCRYSTALS 25 MG / Ni trofurantoin, Monohydrate 75 MG Oral Capsule Nitrofurantoin Monohyd Macro 100 MG Nitrofurantoin Monohyd Macro 100 MG 08/15/2019 12:00:00 AM EDT active Nitrofurantoin Monohyd Macro 100 MG eCW1 ([facility]) NITROFURANTOIN, MACROCRYSTALS 25 MG / Ni trofurantoin, Monohydrate 75 MG Oral Capsule Nitrofurantoin Monohyd Macro 100 MG Nitrofurantoin Monohyd Macro 100 MG 08/15/2019 12:00:00 AM EDT active Nitrofurantoin Monohyd Macro 100 MG eCW1 ([facility]) NITROFURANTOIN, MACROCRYSTALS 25 MG / Ni trofurantoin, Monohydrate 75 MG Oral Capsule Nitrofurantoin Monohyd Macro 100 MG Nitrofurantoin Monohyd Macro 100 MG 08/15/2019 12:00:00 AM EDT active Nitrofurantoin Monohyd Macro 100 MG eCW1 ([facility]) NITROFURANTOIN, MACROCRYSTALS 25 MG / Ni trofurantoin, Monohydrate 75 MG Oral Capsule Nitrofurantoin Monohyd Macro 100 MG Nitrofurantoin Monohyd Macro 100 MG 08/15/2019 12:00:00 AM EDT active Nitrofurantoin Monohyd Macro 100 MG eCW1 ([facility]) Chlorthalidone 25 MG Oral Tablet Chlorthalidone 25 MG 2019 12:00:00 AM EDT 1.0 {tablet} active Chlorthalid one 25 MG eCW1 ([facility]) Chlorthalidone 25 MG Oral Tablet Chlorthalidone 25 MG 2019 12:00:00 AM EDT 1.0 {tablet} active Chlorthalid one 25 MG eCW1 ([facility]) Chlorthalidone 25 MG Oral Tablet Chlorthalidone 25 MG 2019 12:00:00 AM EDT 1.0 {tablet} active Chlorthalid one 25 MG eCW1 ([facility]) Chlorthalidone 25 MG Oral Tablet Chlorthalidone 25 MG 2019 12:00:00 AM EDT 1.0 {tablet} active Chlorthalid one 25 MG eCW1 ([facility]) Chlorthalidone 25 MG Oral Tablet Chlorthalidone 25 MG 2019 12:00:00 AM EDT 1.0 {tablet} active Chlorthalid one 25 MG eCW1 ([facility]) Chlorthalidone 25 MG Oral Tablet Chlorthalidone 25 MG 2019 12:00:00 AM EDT 1.0 {tablet} active Chlorthalid one 25 MG eCW1 ([facility]) Chlorthalidone 25 MG Oral Tablet Chlorthalidone 25 MG 2019 12:00:00 AM EDT 1.0 {tablet} active Chlorthalid one 25 MG eCW1 ([facility]) Chlorthalidone 25 MG Oral Tablet Chlorthalidone 25 MG 2019 12:00:00 AM EDT 1.0 {tablet} active Chlorthalid one 25 MG eCW1 ([facility]) Chlorthalidone 25 MG Oral Tablet Chlorthalidone 25 MG 2019 12:00:00 AM EDT 1.0 {tablet} active Chlorthalid one 25 MG eCW1 ([facility]) Chlorthalidone 25 MG Oral Tablet Chlorthalidone 25 MG 2019 12:00:00 AM EDT 1.0 {tablet} active Chlorthalid one 25 MG eCW1 ([facility]) Chlorthalidone 25 MG Oral Tablet Chlorthalidone 25 MG 2019 12:00:00 AM EDT 1.0 {tablet} active Chlorthalid one 25 MG eCW1 ([facility]) Chlorthalidone 25 MG Oral Tablet Chlorthalidone 25 MG 2019 12:00:00 AM EDT 1.0 {tablet} active Chlorthalid one 25 MG eCW1 ([facility]) Chlorthalidone 25 MG Oral Tablet Chlorthalidone 25 MG 2019 12:00:00 AM EDT 1.0 {tablet} active Chlorthalid one 25 MG eCW1 ([facility]) Chlorthalidone 25 MG Oral Tablet Chlorthalidone 25 MG 2019 12:00:00 AM EDT 1.0 {tablet} active Chlorthalid one 25 MG eCW1 ([facility]) Chlorthalidone 25 MG Oral Tablet Chlorthalidone 25 MG 2019 12:00:00 AM EDT 1.0 {tablet} active Chlorthalid one 25 MG eCW1 ([facility]) Chlorthalidone 25 MG Oral Tablet Chlorthalidone 25 MG 2019 12:00:00 AM EDT 1.0 {tablet} active Chlorthalid one 25 MG eCW1 ([facility]) Chlorthalidone 25 MG Oral Tablet Chlorthalidone 25 MG 2019 12:00:00 AM EDT 1.0 {tablet} active Chlorthalid one 25 MG eCW1 ([facility]) Chlorthalidone 25 MG Oral Tablet Chlorthalidone 25 MG 2019 12:00:00 AM EDT 1.0 {tablet} active Chlorthalid one 25 MG eCW1 ([facility]) Chlorthalidone 25 MG Oral Tablet Chlorthalidone 25 MG 2019 12:00:00 AM EDT 1.0 {tablet} active Chlorthalid one 25 MG eCW1 ([facility]) Chlorthalidone 25 MG Oral Tablet Chlorthalidone 25 MG 2019 12:00:00 AM EDT 1.0 {tablet} active Chlorthalid one 25 MG eCW1 ([facility]) Chlorthalidone 25 MG Oral Tablet Chlorthalidone 25 MG 2019 12:00:00 AM EDT 1.0 {tablet} active Chlorthalid one 25 MG eCW1 ([facility]) Chlorthalidone 25 MG Oral Tablet Chlorthalidone 25 MG 2019 12:00:00 AM EDT 1.0 {tablet} active Chlorthalid one 25 MG eCW1 ([facility]) Chlorthalidone 25 MG Oral Tablet Chlorthalidone 25 MG 2019 12:00:00 AM EDT 1.0 {tablet} active Chlorthalid one 25 MG eCW1 ([facility]) Chlorthalidone 25 MG Oral Tablet Chlorthalidone 25 MG 2019 12:00:00 AM EDT 1.0 {tablet} active Chlorthalid one 25 MG eCW1 ([facility]) Chlorthalidone 25 MG Oral Tablet Chlorthalidone 25 MG 2019 12:00:00 AM EDT 1.0 {tablet} active Chlorthalid one 25 MG eCW1 ([facility]) Chlorthalidone 25 MG Oral Tablet Chlorthalidone 25 MG 2019 12:00:00 AM EDT 1.0 {tablet} active Chlorthalid one 25 MG eCW1 ([facility]) May Have - UNK 07/14/2019 12:00:00 AM EDT active rest periods throught the day eCW1 ([facility]) Oseltamivir 75 MG Oral Capsule Oseltamivir Phosphate 7 5 MG Oseltamivir Phosphate 75 MG 07/01/2019 12:00:00 AM EDT active 1 capsule eCW1 ([facility]) Wheelchair _ UNK 03/18/2019 12:00:00 AM EST activ e Wheelchair _ eCW1 ([facility]) Wheelchair _ UNK 03/18/2019 12:00:00 AM EST activ e Wheelchair _ eCW1 ([facility]) Wheelchair _ K 03/18/2019 12:00:00 AM EST activ e Wheelchair _ eCW1 ([facility]) Wheelchair _ UNK 03/18/2019 12:00:00 AM EST activ e Wheelchair _ eCW1 ([facility]) Wheelchair _ K 03/18/2019 12:00:00 AM EST activ e Wheelchair _ eCW1 ([facility]) Wheelchair _ UNK 03/18/2019 12:00:00 AM EST activ e Wheelchair _ eCW1 ([facility]) Wheelchair _ K 03/18/2019 12:00:00 AM EST activ e Wheelchair _ eCW1 ([facility]) Wheelchair _ UNK 03/18/2019 12:00:00 AM EST activ e Wheelchair _ eCW1 ([facility]) Wheelchair _ UNK 03/18/2019 12:00:00 AM EST activ e Wheelchair _ eCW1 ([facility]) Wheelchair _ UNK 03/18/2019 12:00:00 AM EST activ e Wheelchair _ eCW1 ([facility]) Wheelchair _ UNK 03/18/2019 12:00:00 AM EST activ e Wheelchair _ eCW1 ([facility]) Wheelchair _ UNK 03/18/2019 12:00:00 AM EST activ e Wheelchair _ eCW1 ([facility]) Wheelchair _ UNK 03/18/2019 12:00:00 AM EST activ e Wheelchair _ eCW1 ([facility]) Wheelchair _ UNK 03/18/2019 12:00:00 AM EST activ e Wheelchair _ eCW1 ([facility]) Wheelchair _ UNK 03/18/2019 12:00:00 AM EST active Ifeanyi height manual wheelchair with accessories eCW1 ([facility]) Wheelchair _ UNK 03/18/2019 12:00:00 AM EST activ e Wheelchair _ eCW1 ([facility]) Wheelchair _ UNK 03/18/2019 12:00:00 AM EST activ e Wheelchair _ eCW1 ([facility]) Wheelchair _ UNK 03/18/2019 12:00:00 AM EST activ e Wheelchair _ eCW1 ([facility]) Wheelchair _ UNK 03/18/2019 12:00:00 AM EST activ e Wheelchair _ eCW1 ([facility]) Wheelchair _ UNK 03/18/2019 12:00:00 AM EST activ e Wheelchair _ eCW1 ([facility]) Wheelchair _ UNK 03/18/2019 12:00:00 AM EST activ e Wheelchair _ eCW1 ([facility]) Wheelchair _ UNK 03/18/2019 12:00:00 AM EST activ e Wheelchair _ eCW1 ([facility]) Wheelchair _ UNK 03/18/2019 12:00:00 AM EST active Ifeanyi height manual wheelchair with accessories eCW1 ([facility]) Wheelchair _ UNK 03/18/2019 12:00:00 AM EST activ e Wheelchair _ eCW1 ([facility]) Wheelchair _ UNK 03/18/2019 12:00:00 AM EST activ e Wheelchair _ eCW1 ([facility]) Wheelchair _ UNK 03/18/2019 12:00:00 AM EST activ e Wheelchair _ eCW1 ([facility]) Wheelchair _ UNK 03/18/2019 12:00:00 AM EST activ e Wheelchair _ eCW1 ([facility]) Wheelchair _ UNK 03/18/2019 12:00:00 AM EST activ e Wheelchair _ eCW1 ([facility]) Wheelchair _ UNK 03/18/2019 12:00:00 AM EST activ e Wheelchair _ eCW1 ([facility]) Wheelchair _ UNK 03/18/2019 12:00:00 AM EST activ e Wheelchair _ eCW1 ([facility]) Wheelchair _ UNK 03/18/2019 12:00:00 AM EST activ e Wheelchair _ eCW1 ([facility]) Wheelchair _ UNK 03/18/2019 12:00:00 AM EST activ e Wheelchair _ eCW1 ([facility]) Wheelchair _ UNK 03/18/2019 12:00:00 AM EST activ e Wheelchair _ eCW1 ([facility]) Wheelchair _ UNK 03/18/2019 12:00:00 AM EST activ e Wheelchair _ eCW1 ([facility]) Wheelchair _ UNK 03/18/2019 12:00:00 AM EST activ e Wheelchair _ eCW1 ([facility]) Wheelchair _ UNK 03/18/2019 12:00:00 AM EST activ e Wheelchair _ eCW1 ([facility]) Wheelchair _ UNK 03/18/2019 12:00:00 AM EST activ e Wheelchair _ eCW1 ([facility]) Wheelchair _ UNK 03/18/2019 12:00:00 AM EST activ e Wheelchair _ eCW1 ([facility]) Wheelchair _ UNK 03/18/2019 12:00:00 AM EST activ e Wheelchair _ eCW1 ([facility]) Doxycycline Monohydrate 100 MG Oral Capsule Doxycycline Whitman hydrate 03/11/2019 12:00:00 AM EST ORAL active M EDENT ([facility], [facility]) Mupirocin 0.02 MG/MG Topical Ointment Mupirocin 03/11/2019 12:00:00 AM EST active MEDENT ([facility], [facility]) Triamcinolone Acetonide 1 MG/ML Topical Cream Triamcin olone Acetonide 0.1 % Triamcinolone Acetonide 0.1 % 1.0 {application_to_affected_a hector} active Triamcinolone Acetonide 0.1 % eC W1 ([facility]) Triamcinolone Acetonide 1 MG/ML Topical Cream Triamcin olone Acetonide 0.1 % Triamcinolone Acetonide 0.1 % 1.0 {application_to_affected_a hector} active Triamcinolone Acetonide 0.1 % eC W1 ([facility]) Insurance Providers Payer name Policy type / Coverage type Policy ID Covered constitution party ID Covered constitution party's relationship to millan Policy Millan Plan Information EMEDNY [id number] SP [id number] MEDICARE [id number] SP [id number] MEDICARE [id number] SP [id number] MEDICAID -O/P MARLENA [id number] 18 [id number] MEDICARE PART A -O [id number] 18 [id number] MEDICARE PART A -I/P [id number] 18 [id number] MEDICAID -I/P [id number] 18 [id number] MEDICARE PART A -O/P [id number] 18 [id number] MEDICAID -O/P EMERGENCY ROOM [id number] 18 [id number] MEDICAID [id number] SP [id number] [facility] [id number] [facility] [id number] [facility] [id number] [facility] [id number] [facility] [id number] ANSI-Medicaid [id number] Medicare Part B Medicare Primary [id number] Self [id number] Medicaid [facility] Part B [id number] Self [id number] ANSI-Medicare Part B [id number] ANSI-Medicaid [id number] MEDICARE [id number] ANSI-Medicare Part B [id number] ANSI-Medicaid [id number] ANSI-Medicare Part B [id number] ANSI-Medicaid [id number] ANSI-Medicare Part B [id number] ANSI-Medicaid [id number] ANSI-Medicare Part B [id number] ANSI-Medicaid [id number] ANSI-Medicaid [id number] ANSI-Medicare Part B [id number] ANSI-Medicare Part B [id number] ANSI-Medicaid [id number] ANSI-Medicaid [id number] ANSI-Medicare Part B [id number] Medicaid [place] Med[place] Part B [id number] Self [id number] Medicare Natl Gov't Servi Medicare Primary [id number] Self [id number] ANSI-Medicare Part B [id number] ANSI-Medicaid [id number] Medicare Part B Medicare Primary [id number] Self [id number] ANSI-Medicare Part B [id number] ANSI-Medicaid [id number] ANSI-Medicaid [id number] ANSI-Medicare Part B [id number] ANSI-Medicare Part B [id number] ANSI-Medicaid [id number] Medicare Natl Gov't Servi Medicare Primary [id number] Self [id number] ANSI-Medicaid [id number] ANSI-Medicare Part B [id number] ANSI-Medicare Part B [id number] ANSI-Medicaid [id number] ANSI-Medicare Part B [id number] ANSI-Medicaid [id number] ANSI-Medicaid [id number] ANSI-Medicare Part B [id number] ANSI-Medicare Part B [id number] ANSI-Medicaid [id number] Medicare Part B Medicare Primary [id number] Self [id number] ANSI-Medicare Part B [id number] ANSI-Medicaid [id number] ANSI-Medicare Part B [id number] ANSI-Medicaid [id number] ANSI-Medicaid [id number] ANSI-Medicare Part B [id number] ANSI-Medicaid [id number] ANSI-Medicare Part B [id number] ANSI-Medicaid [id number] ANSI-Medicare Part B [id number] ANSI-Medicaid [id number] ANSI-Medicare Part B [id number] ANSI-Medicare Part B [id number] [facility]-Medicaid [id number] [facility]-Medicare Part B [id number] [facility] [id number] [facility] [id number] [facility]-Medicare Part B [id number] Medicare Part B Medicare Primary [id number] Self [id number] Medicare Part B Medicare Primary [id number] Self [id number] Medicare [facility] Gov't Servi Medicare Primary [id number] Self [id number] Medicare Part B Medicare Primary [id number] Self [id number] Medicare Part B Medicare Primary [id number] Self [id number] Medicare Part B Medicare Primary [id number] Self [id number] Medicare Part B Medicare Primary [id number] Self [id number] Medicare Part B Medicare Primary Self Medicaid Medicaid Self Medicare Medicare Primary Self SELF PAY UNAVAILABLE SP [facility] Medicaid [facility] Part B Self [place] Primary Self MEDICAID S [id number] S [id number] MEDICARE P [id number] S [id number] Problems, Conditions, and Diagnoses Code Display Name Description Problem Type Effective Dates Data Source(s) J30.2 [id number] 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, unspecified 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 Problem 12/02/2019 12:00:00 AM EDT eCW1 ([facility]) [id number] Ingrowing nail Ingrowing nail Problem 11/24/2019 12:00: 00 AM EDT [facility] ([facility] [id number] Onychomycosis Onychomycosis Problem 11/24/2019 12:00:00 AM EDT MEDENT ([facility] 16719602 Pain in limb Pain in limb Problem 11/24/2019 12:00:00 A M EDT MEDENT ([facility] R13.12 18779401 Oropharyngeal dysphagia Problem 07/08/2019 1 2:00:00 AM EDT eC1 ([facility]) R13.12 66920796 Oropharyngeal dysphagia Problem 07/08/2019 1 2:00:00 AM EDT eC1 ([facility]) K449 Diaphragmatic hernia without obstruction or gangrene Diaphragmatic hernia without obstruction or gangrene Diagnosis 10/10/2019 10:35:00 AM EDT [facility] Z1159 Encounter for screening for other viral diseases Encounter for screening for other viral diseases Diagnosis 10/10/2019 10:35:00 AM EDT [facility] E876 Hypokalemia Hypokalemia Diagnosis 10/09/2019 07:15:00 PM EDT [facility] R569 Unspecified convulsions Unspecified convulsions Diagno sis 10/09/2019 07:15:00 PM EDT [facility] I10 Essential (primary) hypertension Essential (primary) h ypertension Diagnosis 10/09/2019 07:15:00 PM EDT [facility] H548 Legal blindness, as defined in [place] Legal blindne ss, as defined in [place] Diagnosis 10/09/2019 07:15:00 PM EDT [facility] G809 Cerebral palsy, unspecified Cerebral palsy, unspecifie d Diagnosis 10/09/2019 07:15:00 PM EDT [facility] K259 Gastric ulcer, unspecified a s acute or chronic, without hemorrhage or perforation Gastric ulcer, unspecified as acute or c hronic, without hemorrhage or perforation Diagnosis [facility] Rhabdomyolysis Rhabdomyolysis Diagnosis 10/09/2019 07:15: 00 PM [facility] N390 Urinary tract infection, site not specif ied Urinary tract infection, site not specified Diagnosis [facility] Sepsis, unspecified organism Sepsis, unspecified organ ism Diagnosis [facility]/09[facility]2019 [facility] J[facility] Pneumonia, unspecified organism Pneumonia, unspecified organism Diagnosis 10/09/2019 07:15:00 PM [facility] Surgeries/Procedures Procedure Description Date Indications Data Source(s) DEBRIDEMENT NAIL ANY METHOD 02/24/2020 12:00:00 AM EST [facility] ([facility] DEBRIDEMENT NAIL ANY METHOD 11/18/2019 12:00:00 AM EDT MEDENT ([facility] Plain Radiography of Chest Plain Radiography of Chest 2019 12:00:00 AM [facility] Monitoring of Cardiac Electrical Activity, External Ap proach Monitoring of Cardiac Electrical Activity, External Approach 10/10/2019 12:00:00 AM [facility] Introduction of Other Anti-infective int o Peripheral Vein, Percutaneous Approach Introduction of Other Anti-infective int o Peripheral Vein, Percutaneous Approach 10/10/2019 12:00:00 AM [facility] Introduction of Electrolytic and Water B alance Substance into Peripheral Vein, Percutaneous Approach Introduction of Electrolytic and Water B alance Substance into Peripheral Vein, Percutaneous Approach 10/10/2019 12:00:00 AM [facility] Office Visit, Est Pt., Level 3 FC 07/01/2019 12:00:00 AM EDT eCW1 ([facility]) Office Visit, Est Pt., Level 3 PC 07/01/2019 12:00:00 AM EDT eCW1 ([facility]) Influenza A+B 07/01/2019 12:00:00 AM EDT eCW1 ([facility]) Office Visit, Est Pt., Level 4 PC 03/10/2019 12:00:00 AM EST eCW1 ([facility]) Results ID Date Data Source [id number] 03/10/2020 10:12:00 AM EST [facility] Name Value Range Interpretation Code Description Data Trini rce(s) Supporting Document(s) SARS coronavirus 2 RNA [Presence] in Res piratory specimen by LORIE with probe detection POSITIVE [facility] This lab was ordered by [facility] a nd reported by [facility]. ID Date Data Source [id number] 01/30/2020 09:04:00 AM EST MEDENT ([facility], ) Name Value Range Interpretation Code Description Data Trini rce(s) Supporting Document(s) Creatine kinase [Enzymatic activity/volume] in Serum or Plasma 82 U /L 39-308 MEDENT ([facility], ) <content>note:<nlbl:demographic_changed> </content>
<content></content> Phenobarbital [Mass/volume] in Serum or Plasma 35.3 UG/ML 15.0-40.0 MEDENT ([facility], ) <content>note:<nlbl:demographic_changed> </content>
<content></content> Phenytoin [Mass/volume] in Serum or Plasma 17.4 UG/ML 10.0-20.0 MEDENT ([facility], ) <content>note:<nlbl:demographic_changed> </content>
<content></content> Levetiracetam [Mass/volume] in Serum or Plasma 15.4 ug/mL 10.0-40.0 MEDENT ([facility], ) This test was developed and its performa nce characteristics determined by [facility]. It has not been cleared or approved by the Food and Drug Administration. Performed at: [address] [id number] 61 Physical Ther: Seng Nichols MD, Phone: [phone] ID Date Data Source [id number] 01/30/2020 09:04:00 AM EST MEDENT ([facility], ) Name Value Range Interpretation Code Description Data Trini rce(s) Supporting Document(s) Blood Urea Nitrogen 14 mg/dL 7-18 MEDENT ([facility], ) Glucose, Fasting 164 mg/dL 70-100 MEDENT ([facility]) Creatinine For GFR 0.71 mg/dL 0.70-1.30 MEDENT ([facility]) Glomerular Filtration Rate Laboratory test result MEDENT ([facility]) <content>Units are mL/min/1.73 m2</content>
<content></content>
<content>Chronic Kidney Disease Staging per NKF:</content>
<content></content>
<content>Stage I & II GFR >=60 Normal to Mildly Decreased</content>
<content>Stage III GFR 30- 59 Moderately Decreased</content>
<content>Stage IV GFR 15-29 Severely Decreased</content>
<content>Stage V GFR <15 Very Little GFR Left</content>
<content>ESRD GFR <15 on ELECTRONIC ASSEMBLER</content>
<content></content> Sodium Level 139 meq/L 136-145 MEDENT ([facility]) Potassium Serum 4.6 meq/L 3.5-5.1 MEDENT ([facility]) Chloride Level 105 meq/L 98-107 MEDENT ([facility]) Calcium Level 8.9 mg/dL 8.5-10.1 MEDENT ([facility]) Carbon Dioxide Level 28 meq/L 21-32 MEDENT ([facility]) Anion Gap 6 meq/L 8-16 MEDENT ([facility]) Alt/SGPT 34 U/L 12-78 MED[facility] ([facility]) Ast/Sgot 15 U/L 7-37 MED[facility] ([facility]) Bilirubin,Total 0.2 mg/dL 0.2-1.0 MEDENT ([facility]) Alkaline Phosphatase 112 U/L 45-117 MEDENT ([facility]) Total Protein 7.4 GM/DL 6.4-8.2 MEDENT ([facility]) Albumin 3.5 GM/DL 3.2-5.2 [facility] Albumin/Globulin Ratio 0.9 MEDENT ([facility]) ID Date Data Source [id number] 01/30/2020 09:04:00 AM EST MEDENT ([facility]) Name Value Range Interpretation Code Description Data Trini rce(s) Supporting Document(s) Red Blood Count 4.60 10 4.30-6.10 MEDENT ([facility]) White Blood Count 5.4 10 4.0-10.0 MEDENT ([facility]) Hemoglobin 12.2 g/dL 13.5-17.5 [facility] Hematocrit 39.6 % 42.0-52.0 MEDENT ([facility]) Mean Corpuscular HGB Conc 30.8 g/dL 32.0-36.5 MEDENT ([facility]) Mean Corpuscular Hemoglobin 26.5 pg 27.0-33.0 MED[facility] ([facility]) Mean Corpuscular Volume 86.1 fl 80.0-96.0 M EDENT ([facility]) Platelet Count, Automated 547 10 150-450 MEDENT ([facility]) Red Cell Distribution Width 14.1 % 11.5-14.5 MEDENT ([facility]) Neutrophils % 47.5 % 36.0-66.0 MEDENT ([facility]) Lymph % 36.6 % 24.0-44.0 MED[facility] Whitman % 13.8 % 0.0-5.0 MEDENT [facility] Eos % 1.1 % 0.0-3.0 MED[facility] Baso % 0.6 % 0.0-1.0 MEDENT [facility] Immature Granulocyte % 0.4 % 0-3.0 MEDENT [facility] Nucleated Red Blood Cell % 0.0 % 0-0 MED ENT ([facility]) Neutrophils # 2.5 10 1.5-8.5 MEDENT ([facility]) Whitman # 0.7 10 0.0-0.8 MEDENT ([facility]) Eos # 0.1 10 0.0-0.5 MEDENT ([facility]) Lymph # 2.0 10 1.5-5.0 MEDENT ([facility]) Baso # 0.0 10 0.0-0.2 MEDENT ([facility]) ID Date Data Source PHENYTOIN (DILANTIN) 01/30/2020 12:00:00 AM EST eCW1 ([facility]) Name Value Range Interpretation Code Description Data Trini rce(s) Supporting Document(s) 17.4 10.0-20.0 PHENYTOIN (DILANTIN) eCW1 ([facility]) ID Date Data Source Comprehensive Metabolic Profile (CMP) 01/30/2020 12:00:00 AM EST eCW1 ([facility]) Name Value Range Interpretation Code Description Data Trini rce(s) Supporting Document(s) 164 70-100 GLUCOSE, FASTING eCW1 ([facility]) 14 7-18 BLOOD UREA NITROGEN eCW1 ([facility]) 0.71 0.70-1.30 CREATININE FOR GFR eCW1 ([facility]) > 60.0 >56 GLOMERULAR FILTRATION RATE eCW 1 ([facility]) 105 98-107 CHLORIDE LEVEL eCW1 ([facility]) 139 136-145 SODIUM LEVEL eCW1 ([facility]) 4.6 3.5-5.1 POTASSIUM SERUM eCW1 ([facility]) 28 21-32 CARBON DIOXIDE LEVEL eCW1 ([facility]) 112 45-117 ALKALINE PHOSPHATASE eCW1 ([facility]) 8.9 8.5-10.1 CALCIUM LEVEL eCW1 ([facility]) 34 12-78 ALT/SGPT eCW1 ([facility]) 15 7-37 AST/SGOT eCW1 ([facility]) 7.4 6.4-8.2 TOTAL PROTEIN eCW1 ([facility]) 0.9 ALBUMIN/GLOBULIN RATIO eCW1 ([facility]) 0.2 0.2-1.0 BILIRUBIN,TOTAL eCW1 ([facility]) 3.5 3.2-5.2 ALBUMIN eCW1 ([facility]) ID Date Data Source CPK CREATINE PHOSPHOKINASE 01/30/2020 12:00:00 AM EST eCW1 ( [facility]) Name Value Range Interpretation Code Description Data Trini rce(s) Supporting Document(s) 82 39-308 CPK CREATINE PHOSPHOKINASE eCW 1 ([facility]) ID Date Data Source CBC with Differential 01/30/2020 12:00:00 AM EST eCW1 ([facility]) Name Value Range Interpretation Code Description Data Trini rce(s) Supporting Document(s) 5.4 4.0-10.0 WHITE BLOOD COUNT eCW1 ([facility]) 12.2 13.5-17.5 HEMOGLOBIN eCW1 ([facility]) 4.60 4.30-6.10 RED BLOOD COUNT eCW1 ([facility]) 39.6 42.0-52.0 HEMATOCRIT eCW1 ([facility]) 86.1 80.0-96.0 MEAN CORPUSCULAR VOLUME e CW1 ([facility]) 30.8 32.0-36.5 MEAN CORPUSCULAR HGB CONC eCW1 ([facility]) 26.5 27.0-33.0 MEAN CORPUSCULAR HEMOGLOB IN eCW1 ([facility]) 14.1 11.5-14.5 RED CELL DISTRIBUTION WID TH eCW1 ([facility]) 47.5 36.0-66.0 NEUTROPHILS % eCW1 ([facility]) 13.8 0.0-5.0 MONO % eCW1 ([facility]) 547 150-450 PLATELET COUNT, AUTOMATED eCW1 ([facility]) 36.6 24.0-44.0 LYMPH % eCW1 ([facility]) 2.0 1.5-5.0 LYMPH # eCW1 ([facility]) 0.6 0.0-1.0 BASO % eCW1 ([facility]) 2.5 1.5-8.5 NEUTROPHILS # eCW1 ([facility]) 1.1 0.0-3.0 EOS % eCW1 ([facility]) 0.7 0.0-0.8 MONO # eCW1 ([facility]) 0.0 0.0-0.2 BASO # eCW1 ([facility]) 0.1 0.0-0.5 EOS # eCW1 ([facility]) ID Date Data Source PHENOBARBITAL LEVEL 01/30/2020 12:00:00 AM EST eCW1 ([facility]) Name Value Range Interpretation Code Description Data Trini rce(s) Supporting Document(s) 35.3 15.0-40.0 PHENOBARBITAL LEVEL eCW1 ([facility]) ID Date Data Source [id number] 01/17/2020 03:27:00 PM EST [facility] Name Value Range Interpretation Code Description Data Trini rce(s) Supporting Document(s) SARS coronavirus 2 RNA [Presence] in Res piratory specimen by LORIE with probe detection [facility] This lab was ordered by [facility] a nd reported by [facility]. ID Date Data Source [id number] 01/16/2020 12:30:00 PM EST [facility] Name Value Range Interpretation Code Description Data Trini rce(s) Supporting Document(s) SARS coronavirus 2 RNA [facility] This lab was ordered by [facility] and reported by [facility]. ID Date Data Source C REACTIVE PROTEIN QUANTITATIV (At [facility]) 12/02/2019 05:56 :51 AM EDT eCW1 ([facility]) Name Value Range Interpretation Code Description Data Trini rce(s) Supporting Document(s) 1.09 C REACTIVE PROTEIN QUANTITATIV eCW1 ([facility]) ID Date Data Source ERYTHROCYTE SEDIMENTATION RATE 12/02/2019 03:51:51 AM EDT eC W1 ([facility]) Name Value Range Interpretation Code Description Data Trini rce(s) Supporting Document(s) 26 ERYTHROCYTE SEDIMENTATION RATE eCW1 ([facility]) ID Date Data Source [id number] 10/15/2019 12:14:00 [place] [address] PROGRESS NOTENAME: ANAI ARBOLEDA ROOM#: 104-1DATE OF : 1960 MR#: [id number] DATE: 10/10/19 OF SERVICE: 10/14/19UBJECTIVE: Patient was [...] rce(s) Supporting Document(s) ID Date Data Source [id number] 10/26/2019 10:00:00 AM EDT [place] ([facility], ) Name Value Range Interpretation Code Description Data Trini rce(s) Supporting Document(s) Phenytoin [Mass/volume] in Serum or Plasma 15.1 UG/ML 10.0-20.0 [facility] ([facility], ) <content>note:<nlbl:[email or web address]_changed> </content>
<content></content> ID Date Data Source [id number] 10/17/2019 02:00:00 [place] [address] PHONE: [phone] FAX: [phone] Name .................. : ANAI ARBOLEDA Acct Number.................. : [id number] ROOM. ................. : 104-1 MR Number ................... : [id number] Stay type ............. : I/P Discharge Date......... ... : Admit Date ......... : 10/10/19 Admit Phys .................... : ISAEL HERNÁNDEZ Date of ....... : 1960 Family Phys ................... : RU VANEGAS Phone .................. : [phone] Age ................................ : 58 Film# .................. .:[id number] Sex ................................. : M Unsigned transcriptions are preliminary reports and do not represent a medical or legal document CHEST PORTABLE [id number] COMPLETE:10/14/19 10:22 65747 (REASON FOR CHEST: PNEUM ONIA PORTABLE CHEST X-RAY: INDICATION: Pneumonia. FINDINGS: Examination reveals prominence of the pulmonary vasculature. There is increased density identified at the left lung base, for which an underlying infiltrate is not excluded. The osseous structures demonstrate degenerative changes. IMPRESSION: Suspicion for a left basilar infiltrate. [facility]. Examination dictated by FREIDA Mcneal. Examination [...] rce(s) Supporting Document(s) ID Date Data Source [id number] 10/14/2019 09:13:00 AM EDT [facility] Name Value Range Interpretation Code Description Data Trini rce(s) Supporting Document(s) Creatine kinase [Enzymatic activity/volume] in Serum or Plas ma 1188 U/L 30 - 170 H [facility] ID Date Data Source [id number] 10/14/2019 09:13:00 AM EDT [facility] Name Value Range Interpretation Code Description Data Trini rce(s) Supporting Document(s) COMPREHENSIVE METABOLIC PANEL [facility] COMPREHENSIVE METABOLIC PANEL Sodium [Moles/volume] in Serum or Plasma 137 mEq/L 134 - 153 [facility] Potassium [Moles/volume] in Serum or Plasma 3.8 mEq/L 3.6 - 5.0 [facility] Chloride [Moles/volume] in Serum or Plasma 104 mEq/L 98 - 107 [facility] Carbon dioxide, total [Moles/volume] in Serum or Plasma 20 MEQ/L 22 - 30 L [facility] Glucose [Mass/volume] in Serum or Plasma 118 MG/DL 65 - 110 H [facility] BUN 5 MG/DL 7 - 21 L [facility] al Creatinine [Mass/volume] in Serum or Plasma 0.6 MG/DL 0.7 - 1.5 L [facility] BUN/CREAT 8 8 - 27 [facility] Protein [Mass/volume] in Serum or Plasma 6.7 G/DL 6.3 - 8.2 [facility] Albumin [Mass/volume] in Serum or Plasma 3.6 G/DL 3.9 - 5.0 L [facility] Globulin [Mass/volume] in Serum by calculation 3.1 GM/DL 2.4 - 3.2 [facility] A/G RATIO 1.2 0.8 - 2.0 [facility] Calcium [Mass/volume] in Serum or Plasma 8.3 MG/DL 8.4 - 10.2 L [facility] Bilirubin.total [Mass/volume] in Serum or Plasma <0.7 MG/DL 0.2 - 1.3 [facility] Alkaline phosphatase [Enzymatic activity/volume] in Serum or Plasma 107 U/L 38 - 126 [facility] Aspartate aminotransferase [Enzymatic activity/volume] in Serum or Plasma 27 U/L 5 - 40 [facility] Alanine aminotransferase [Enzymatic activity/volume] in Seru m or Plasma 21 U/L 7 - 56 [facility] Anion gap 3 in Serum or Plasma 13.0 mmol/L 8.0 - 16.0 [facility] AGE 58 yrs [facility] al NON-AA GFR >60 mL/min [facility] ital AFR AMER GFR >60 mL/min [facility] spital Male GFR In terprentation 20-49 [...] >32 mL/min Normal ID Date Data Source [id number] 10/14/2019 08:59:00 AM EDT [facility] Name Value Range Interpretation Code Description Data Trini rce(s) Supporting Document(s) CBC W/AUTOMATED DIFF [facility] COMPLETE BLOOD COUNT Leukocytes [#/volume] in Blood by Automated count 7.0 10^3/uL 4.2 - 1 1.0 [facility] Erythrocytes [#/volume] in Blood by Automated count 4.16 10^6/uL 4. 50 - 6.30 L [facility] Hemoglobin [Mass/volume] in Blood 12.1 g/dL 14.0 - 16.0 L [facility] Hematocrit [Volume Fraction] of Blood by Automated count 36.2 % 4 1.0 - 51.0 L [facility] Erythrocyte mean corpuscular volume [Entitic volume] by Auto mated count 87.0 fL 80.0 - 94.0 [facility] Erythrocyte mean corpuscular hemoglobin [Entitic mass] by Automated count 29.1 pg 27.0 - 34.0 [facility] Erythrocyte mean corpuscular hemoglobin concentration [Mass/volume] by Automated count 33.4 g/dL 31.0 - 36.0 [facility] Erythrocyte distribution width [Ratio] by Automated count 13.8 % 11.5 - 14.8 [facility] Platelets [#/volume] in Blood by Automated count 251 10^3/uL 150 - 45 0 [facility] Platelet mean volume [Entitic volume] in Blood by Automated count 9.7 fL 7.4 - 10.4 [facility] Neutrophils/100 leukocytes in Blood by Automated count 59.4 % 37. 0 - 80.0 [facility] Lymphocytes/100 leukocytes in Blood by Manual count 22.9 % 25.0 - 40.0 L [facility] Monocytes/100 leukocytes in Blood by Automated count 12.1 % 3.0 - 8.0 H [facility] Eosinophils/100 leukocytes in Blood by Automated count 4.9 % 0.0 - 7.0 [facility] Basophils/100 leukocytes in Blood by Automated count 0.3 % 0.0 - 2.0 [facility] %IG 0.4 % 0.0 - 0.0 H [facility] Hospit al %NRBC 0.0 % 0.0 - 0.0 [facility] al Neutrophils [#/volume] in Blood by Automated count 4.13 10^3/uL 2.00 - 6.90 [facility] Lymphocytes [#/volume] in Blood by Automated count 1.59 10^3/uL 0.60 - 3.40 [facility] Monocytes [#/volume] in Blood by Automated count 0.84 10^3/uL 0.00 - 0.90 [facility] Eosinophils [#/volume] in Blood by Automated count 0.34 10^3/uL 0.00 - 0.70 [facility] Basophils [#/volume] in Blood by Automated count 0.02 10^3/uL 0.00 - 0.20 [facility] #IG 0.03 10^3/uL 0.00 - 0.10 [facility] ospital #NRBC 0.00 10^3/uL 0.00 - 0.00 [facility] ospital MANUAL DIFF NOT INDICATED [facility] RBC MORPH NOT INDICATED [facility] spital ID Date Data Source [id number] 10/17/2019 11:14:00 AM EDT [facility] Name Value Range Interpretation Code Description Data Trini rce(s) Supporting Document(s) SARS-CoV-2, LORIE Not Detected Not Detected [facility] This test was developed and its performa nce characteristics determinedby [employer]. This test has not been FDA cleared [...] in this assay. ID Date Data Source [id number] 10/13/2019 07:35:00 AM EDT [facility] Name Value Range Interpretation Code Description Data Trini rce(s) Supporting Document(s) COMPREHENSIVE METABOLIC PANEL [facility] COMPREHENSIVE METABOLIC PANEL Sodium [Moles/volume] in Serum or Plasma 139 mEq/L 134 - 153 [facility] Potassium [Moles/volume] in Serum or Plasma 3.8 mEq/L 3.6 - 5.0 [facility] Chloride [Moles/volume] in Serum or Plasma 104 mEq/L 98 - 107 [facility] Carbon dioxide, total [Moles/volume] in Serum or Plasma 23 MEQ/L 22 - 30 [facility] Glucose [Mass/volume] in Serum or Plasma 96 MG/DL 65 - 110 [facility] BUN 6 MG/DL 7 - 21 [facility] Creatinine [Mass/volume] in Serum or Plasma 0.6 MG/DL 0.7 - 1.5 L [facility] BUN/CREAT 10 8 - 27 [facility] Protein [Mass/volume] in Serum or Plasma 6.7 G/DL 6.3 - 8.2 [facility] Albumin [Mass/volume] in Serum or Plasma 3.7 G/DL 3.9 - 5.0 L [facility] Globulin [Mass/volume] in Serum by calculation 3.0 GM/DL 2.4 - 3.2 [facility] A/G RATIO 1.2 0.8 - 2.0 [facility] Calcium [Mass/volume] in Serum or Plasma 8.3 MG/DL 8.4 - 10.2 L [facility] Bilirubin.total [Mass/volume] in Serum or Plasma <0.7 MG/DL 0.2 - 1.3 [facility] Alkaline phosphatase [Enzymatic activity/volume] in Serum or Plasma 99 U/L 38 - 126 [facility] Aspartate aminotransferase [Enzymatic activity/volume] in Serum or Plasma 26 U/L 5 - 40 [facility] Alanine aminotransferase [Enzymatic activity/volume] in Seru m or Plasma 19 U/L 7 - 56 [facility] Anion gap 3 in Serum or Plasma 12.0 mmol/L 8.0 - 16.0 [facility] AGE 58 yrs [facility] al NON-AA GFR >60 mL/min [facility] ital AFR AMER GFR >60 mL/min [facility] spital Male GFR In terprentation 20-49 [...] >32 mL/min Normal ID Date Data Source [id number] 10/13/2019 07:35:00 AM T [facility] Name Value Range Interpretation Code Description Data Trini rce(s) Supporting Document(s) Creatine kinase [Enzymatic activity/volume] in Serum or Plasma 9 51 U/L 30 - 170 H [facility] ID Date Data Source [id number] 10/13/2019 07:18:00 AM EDT [facility] Name Value Range Interpretation Code Description Data Trini rce(s) Supporting Document(s) CBC W/AUTOMATED DIFF [facility] COMPLETE BLOOD COUNT Leukocytes [#/volume] in Blood by Automated count 6.8 10^3/uL 4.2 - 1 1.0 [facility] Erythrocytes [#/volume] in Blood by Automated count 4.02 10^6/uL 4. 50 - 6.30 L [facility] Hemoglobin [Mass/volume] in Blood 11.6 g/dL 14.0 - 16.0 L [facility] Hematocrit [Volume Fraction] of Blood by Automated count 34.6 % 4 1.0 - 51.0 L [facility] Erythrocyte mean corpuscular volume [Entitic volume] by Auto mated count 86.1 fL 80.0 - 94.0 [facility] Erythrocyte mean corpuscular hemoglobin [Entitic mass] by Automated count 28.9 pg 27.0 - 34.0 [facility] Erythrocyte mean corpuscular hemoglobin concentration [Mass/volume] by Automated count 33.5 g/dL 31.0 - 36.0 [facility] Erythrocyte distribution width [Ratio] by Automated count 13.3 % 11.5 - 14.8 [facility] Platelets [#/volume] in Blood by Automated count 229 10^3/uL 150 - 45 0 [facility] Platelet mean volume [Entitic volume] in Blood by Automated count 9.7 fL 7.4 - 10.4 [facility] Neutrophils/100 leukocytes in Blood by Automated count 50.8 % 37. 0 - 80.0 [facility] Lymphocytes/100 leukocytes in Blood by Manual count 27.5 % 25.0 - 40.0 [facility] Monocytes/100 leukocytes in Blood by Automated count 16.3 % 3.0 - 8.0 H [facility] Eosinophils/100 leukocytes in Blood by Automated count 4.9 % 0.0 - 7.0 [facility] Basophils/100 leukocytes in Blood by Automated count 0.4 % 0.0 - 2.0 [facility] %IG 0.1 % 0.0 - 0.0 [facility] %NRBC 0.0 % 0.0 - 0.0 [facility] al Neutrophils [#/volume] in Blood by Automated count 3.45 10^3/uL 2.00 - 6.90 [facility] Lymphocytes [#/volume] in Blood by Automated count 1.87 10^3/uL 0.60 - 3.40 [facility] Monocytes [#/volume] in Blood by Automated count 1.11 10^3/uL 0.00 - 0.90 H [facility] Eosinophils [#/volume] in Blood by Automated count 0.33 10^3/uL 0.00 - 0.70 [facility] Basophils [#/volume] in Blood by Automated count 0.03 10^3/uL 0.00 - 0.20 [facility] #IG 0.01 10^3/uL 0.00 - 0.10 [facility] ospital #NRBC 0.00 10^3/uL 0.00 - 0.00 [facility] ospital MANUAL DIFF SEE BELOW [facility] ital Segmented neutrophils/100 leukocytes in Blood by Manual count 53 % 37 - 80 [facility] %LYMPH 29 % 25 - 40 [facility] %MONO 13 % 3 - 8 H [facility] %EOS 5 % 0 - 7 [facility] al RBC MORPH NOT INDICATED [facility] spital ID Date Data Source [id number] 10/12/2019 08:24:00 AM EDT [facility] Name Value Range Interpretation Code Description Data Trini rce(s) Supporting Document(s) CBC W/AUTOMATED DIFF [facility] COMPLETE BLOOD COUNT Leukocytes [#/volume] in Blood by Automated count 7.9 10^3/uL 4.2 - 1 1.0 [facility] Erythrocytes [#/volume] in Blood by Automated count 3.74 10^6/uL 4. 50 - 6.30 L [facility] Hemoglobin [Mass/volume] in Blood 10.7 g/dL 14.0 - 16.0 L [facility] Hematocrit [Volume Fraction] of Blood by Automated count 32.4 % 4 1.0 - 51.0 L [facility] Erythrocyte mean corpuscular volume [Entitic volume] by Auto mated count 86.6 fL 80.0 - 94.0 [facility] Erythrocyte mean corpuscular hemoglobin [Entitic mass] by Automated count 28.6 pg 27.0 - 34.0 [facility] Erythrocyte mean corpuscular hemoglobin concentration [Mass/volume] by Automated count 33.0 g/dL 31.0 - 36.0 [facility] Erythrocyte distribution width [Ratio] by Automated count 13.7 % 11.5 - 14.8 [facility] Platelets [#/volume] in Blood by Automated count 207 10^3/uL 150 - 45 0 [facility] Platelet mean volume [Entitic volume] in Blood by Automated count 10.0 fL 7.4 - 10.4 [facility] Neutrophils/100 leukocytes in Blood by Automated count 53.2 % 37. 0 - 80.0 [facility] Lymphocytes/100 leukocytes in Blood by Manual count 28.8 % 25.0 - 40.0 [facility] Monocytes/100 leukocytes in Blood by Automated count 14.8 % 3.0 - 8.0 H [facility] Eosinophils/100 leukocytes in Blood by Automated count 2.8 % 0.0 - 7.0 [facility] 0.3 %IG 0.1 % 0.0 - 0.0 H [facility] al %NRBC 0.0 % 0.0 - 0.0 [facility] al Neutrophils [#/volume] in Blood by Automated count 4.23 10^3/uL 2.00 - 6.90 [facility] Lymphocytes [#/volume] in Blood by Automated count 2.28 10^3/uL 0.60 - 3.40 [facility] Monocytes [#/volume] in Blood by Automated count 1.17 10^3/uL 0.00 - 0.90 H [facility] Eosinophils [#/volume] in Blood by Automated count 0.22 10^3/uL 0.00 - 0.70 [facility] Basophils [#/volume] in Blood by Automated count 0.02 10^3/uL 0.00 - 0.20 [facility] #IG 0.01 10^3/uL 0.00 - 0.10 [facility] ospital #NRBC 0.00 10^3/uL 0.00 - 0.00 [facility] ospital MANUAL DIFF SEE BELOW [facility] ital Segmented neutrophils/100 leukocytes in Blood by Manual count 51 % 37 - 80 [facility] %LYMPH 39 % 25 - 40 [facility] al %MONO 5 % 3 - 8 [facility] al %EOS 2 % 0 - 7 [facility] 3 RBC MORPH NOT INDICATED [facility] spital ID Date Data Source [id number] 10/12/2019 08:15:00 AM EDT [facility] Name Value Range Interpretation Code Description Data Trini rce(s) Supporting Document(s) BASIC METABOLIC PANEL [facility] BASIC METABOLIC PANEL Sodium [Moles/volume] in Serum or Plasma 139 mEq/L 134 - 153 [facility] Potassium [Moles/volume] in Serum or Plasma 3.8 mEq/L 3.6 - 5.0 [facility] Chloride [Moles/volume] in Serum or Plasma 106 mEq/L 98 - 107 [facility] Carbon dioxide, total [Moles/volume] in Serum or Plasma 23 MEQ/L 22 - 30 [facility] Glucose [Mass/volume] in Serum or Plasma 94 MG/DL 65 - 110 [facility] BUN 7 MG/DL 7 - 21 [facility] al Creatinine [Mass/volume] in Serum or Plasma 0.6 MG/DL 0.7 - 1.5 L [facility] BUN/CREAT 12 8 - 27 [facility] Calcium [Mass/volume] in Serum or Plasma 8.4 MG/DL 8.4 - 10.2 [facility] Anion gap 3 in Serum or Plasma 10.0 mmol/L 8.0 - 16.0 [facility] AGE 58 yrs [facility] al AFR AMER GFR >60 mL/min [facility] spital NON-AA GFR >60 mL/min [facility] ital Male GFR Inter prentation 20-49 [...] >32 mL/min Normal ID Date Data Source [id number] 10/12/2019 08:15:00 AM EDT [facility] Name Value Range Interpretation Code Description Data Trini rce(s) Supporting Document(s) Creatine kinase [Enzymatic activity/volume] in Serum or Plasma 7 98 U/L 30 - 170 H [facility] ID Date Data Source [id number] 10/11/2019 03:46:00 PM EDT [facility] Name Value Range Interpretation Code Description Data Trini rce(s) Supporting Document(s) OCCULT BLOOD NEGATIVE NORMAL: NEGATIVE [facility] OCCULT BLOOD REENTER NEGATIVE NORMAL: NEGATIVE [facility] { HEMOCCULT LOT # [id number] ){ LOT EXP DATE 05.22 ){ PROCEDURAL CONTROL POS/NEG VALID ) ID Date Data Source [id number] 10/11/2019 03:44:00 PM EDT [facility] Name Value Range Interpretation Code Description Data Trini rce(s) Supporting Document(s) OCCULT BLOOD DIAGNOSTIC 3 SLIDES [facility] SPOKE WITH TABATHA. WILL REORDER{ DA TE COLLECTED{ DATE COLLECTED{ DATE COLLECTED{ HEMOCCULT LOT # ){ LOT EXP DATE ) CEDURAL CONTROL PO /NEG [facility] ID Date Data Source [id number] 10/11/2019 10:25:00 AM EDT [facility] Name Value Range Interpretation Code Description Data Trini rce(s) Supporting Document(s) [facility] UR[facility]ALYSIS SOURCE R [facility] COLOR yellow NORMAL: Yellow [facility] ospital CLARITY clear NORMAL: Clear [facility] Specific gravity of Urine by Test strip 1.015 1.001 - 1.030 [facility] pH 6 5 - 9 [facility] Glucose [Mass/volume] in Urine by Test strip NORM NORMAL: Negat [facility] Bilirubin.total [Presence] in Urine by Test strip NEG NORMAL: Negative [facility] Ketones [Presence] in Urine by Test strip NEG NORMAL: Negative [facility] Protein [Mass/volume] in Urine by Test strip 15 NORMAL: Negat [facility] Nitrite [Presence] in Urine by Test strip NEG NORMAL: Negative [facility] BLOOD 150 NORMAL: Negative [facility] Leukocyte esterase [Presence] in Urine by Test strip 500 JIMMY L: Negative [facility] Urobilinogen [Mass/volume] in Urine by Test strip NOR less arthur n 1.0 mg/dL [facility] MICROSCOPIC See Below [facility] Hosp ital WBC 5 - 7 NORMAL: NONE SEEN A [facility] Erythrocytes [#/volume] in Urine by Test strip 1 - 3 NORMAL: NON E SEEN [facility] Bacteria [Presence] in Urine sediment by Light microscopy Tr colt NORMAL: NONE SEEN [facility] Mucus [Presence] in Urine sediment by Light microscopy Trace NORMAL: NONE SEEN [facility] ID Date Data Source [id number] 10/11/2019 07:22:00 AM EDT [facility] Name Value Range Interpretation Code Description Data Trini rce(s) Supporting Document(s) CBC W/AUTOMATED DIFF [facility] COMPLETE BLOOD COUNT Leukocytes [#/volume] in Blood by Automated count 9.3 10^3/uL 4.2 - 1 1.0 [facility] Erythrocytes [#/volume] in Blood by Automated count 4.00 10^6/uL 4. 50 - 6.30 L [facility] Hemoglobin [Mass/volume] in Blood 11.6 g/dL 14.0 - 16.0 L [facility] Hematocrit [Volume Fraction] of Blood by Automated count 35.0 % 4 1.0 - 51.0 L [facility] Erythrocyte mean corpuscular volume [Entitic volume] by Auto mated count 87.5 fL 80.0 - 94.0 [facility] Erythrocyte mean corpuscular hemoglobin [Entitic mass] by Automated count 29.0 pg 27.0 - 34.0 [facility] Erythrocyte mean corpuscular hemoglobin concentration [Mass/volume] by Automated count 33.1 g/dL 31.0 - 36.0 [facility] Erythrocyte distribution width [Ratio] by Automated count 13.8 % 11.5 - 14.8 [facility] [facility] Platelets [#/volume] in Blood by Automated count 254 10^3/uL 150 - 45 0 [facility] Platelet mean volume [Entitic volume] in Blood by Automated count 10.6 fL 7.4 - 10.4 H [facility] Neutrophils/100 leukocytes in Blood by Automated count 60.7 % 37. 0 - 80.0 [facility] Lymphocytes/100 leukocytes in Blood by Manual count 22.2 % 25.0 - 40.0 L [facility] Monocytes/100 leukocytes in Blood by Automated count 15.6 % 3.0 - 8.0 H [facility] Eosinophils/100 leukocytes in Blood by Automated count 1.1 % 0.0 - 7.0 [facility] Basophils/100 leukocytes in Blood by Automated count 0.2 % 0.0 - 2.0 [facility] %IG 0.2 % 0.0 - 0.0 H [facility] al %NRBC 0.0 % 0.0 - 0.0 [facility] Neut[facility]ils [#/volume] in Blood by Automated count 5.66 10^3/uL 2.00 - 6.90 [facility] Lymphocytes [#/volume] in Blood by Automated count 2.07 10^3/uL 0.60 - 3.40 [facility] Monocytes [#/volume] in Blood by Automated count 1.45 10^3/uL 0.00 - 0.90 H [facility] Eosinophils [#/volume] in Blood by Automated count 0.10 10^3/uL 0.00 - 0.70 [facility] Basophils [#/volume] in Blood by Automated count 0.02 10^3/uL 0.00 - 0.20 [facility] #IG 0.02 10^3/uL 0.00 - 0.10 [facility]spital #NRBC 0.00 10^3/uL 0.00 - 0.00 [facility] MANUAL DIFF SEE BELOW [facility] ital Segmented neutrophils/100 leukocytes in Blood by Manual count 76 % 37 - 80 [facility] %LYMPH 12 % 25 - 40 L [facility] %MONO 10 % 3 - 8 H [facility] %EOS 2 % 0 - 7 [facility] RBC MORPH NOT INDICATED [facility] Ho spital ID Date Data Source [id number] 10/11/2019 06:36:00 AM EDT [facility] Name Value Range Interpretation Code Description Data Trini rce(s) Supporting Document(s) Creatine kinase [Enzymatic activity/volume] in Serum or Plas ma 1145 U/L 30 - 170 H [facility] ID Date Data Source [id number] 10/11/2019 06:36:00 AM EDT [facility] Name Value Range Interpretation Code Description Data Trini rce(s) Supporting Document(s) BASIC METABOLIC PANEL [facility] BASIC METABOLIC PANEL Sodium [Moles/volume] in Serum or Plasma 140 mEq/L 134 - 153 [facility] Potassium [Moles/volume] in Serum or Plasma 4.0 mEq/L 3.6 - 5.0 [facility] Chloride [Moles/volume] in Serum or Plasma 104 mEq/L 98 - 107 [facility] Carbon dioxide, total [Moles/volume] in Serum or Plasma 24 MEQ/L 22 - 30 [facility] Glucose [Mass/volume] in Serum or Plasma 89 MG/DL 65 - 110 [facility] BUN 8 MG/DL 7 - 21 [facility] Creatinine [Mass/volume] in Serum or Plasma 0.7 MG/DL 0.7 - 1.5 [facility] BUN/CREAT 11 8 - 27 [facility] Calcium [Mass/volume] in Serum or Plasma 8.8 MG/DL 8.4 - 10.2 [facility] Anion gap 3 in Serum or Plasma 12.0 mmol/L 8.0 - 16.0 [facility] AGE 58 yrs [facility] A[facility] AMER GFR >60 mL/min [facility] spital NON-AA GFR >60 mL/min [facility] ital Male GFR Inter prentation 20-49 [...] >32 mL/min Normal ID Date Data Source [id number] 10/09/2019 07:15:00 PM EDT [facility] 1 OrderSheet [facility] Emergency Department [address] [place] [address] Phone #: ext- [phone] 10/09/2019 19:00 Patient: [...] STAT 19:30 10/09/2019 19:32 Devika, 2 OrderSheet [facility] Emergency Department [address] [place] [address] Phone #: ext- [phone] 10/09/2019 19:00 Patient: NKECHI OSPINA [facility]#: [id number] Sex: M : 1960 Age: 38va23i X2 (Sched Reese Collado R.N.19:40 10/09/2019) Physician;DIAGNOSTIC [...] Description Priority Entered Acknowledged Initialed 3 OrderSheet [facility] Emergency Department [address] [place] [address] Phone #: ext- [phone] 10/09/2019 19:00 Patient: NKECHI OSPINA Sex: M : 1960 Age: 58yAccucheck 19:31 10/09/2019 20:11 Reese Fortune R.N. Physician;EKG 19:10/09/2019 20:11 Reese Fortune R.N. Physician;Pulse oximeter 19:31 10/09/2019 19:33 Devika,(Spot Check) Reese Collado R.N. Physician;Saline Lock 19:10/09/2019 19:48 Reese Fortune R.N. Physician;Oxygen titrate to 19:31 10/09/2019 19:33 Devika,92% Reese Collado R.N. Physician;Franks Catheter 22:22 10/09/2019 23:21 Ale Kilo Reese Brosnon R.N. Physician;[Electronically signed by Qian Bernard R.N. (02:19 10/10/2019)][Electronically signed by Reese Landers Physician (05:43 10/10/2019)][Electronically locked by Qian Bernard R.N. (02:19 10/10/2019)] Name Value Range Interpretation Code Description Data Trini rce(s) Supporting Document(s) ID Date Data Source [id number] 10/09/2019 07:15:00 PM EDT [facility] 1 Medication Reconciliation Report [facility] Emergency Department [address] [place] [address] Phone #: ext- [phone] 10/09/2019 19:00 Patient: [...] Home Medication information: 2 Medication Reconciliation Report [facility] Emergency Department [address] [place] [address] Phone #: ext- [phone] 10/09/2019 19:00 Patient: NKECHI OSPINA Sex: M : 1960 Age: 58ypatient's assisted recordThe following Medications were given to the [...] rce(s) Supporting Document(s) ID Date Data Source [id number] 10/09/2019 07:15:00 PM EDT [facility] 1 Medication Administration Record [facility] Emergency Department [address] [place] [address] Phone #: ext- [phone] 10/09/2019 19:00 Patient: NKECHI OSPINA Sex: M : 1960 Age: 58yWeight: 66.2 kgHeight/Length: 64 inBMI: 25.1ALLERGIES: None Date/Time Medication Administered Medication OrderedStart IV NS IV NS : Bolus 1000 mL, then 05285:54 10/09/2019 Dose: IV Fluids mL/hr (can be titrated Tobias Amin, R.N. Rate: 1000 mL/hr over 1 hour(s) additional physician instruction)---- Dispensed: 1000 mL bagStop Site: #1 left AC21:21 10/09/2019SoTobias iglesias R.NKyraStart IV NS IV NS : Bolus 1000 mL, then 26493:24 10/09/2019 Dose: IV Fluids mL/hr (can be titrated Tobias Amin, R.N. Rate: 125 mL/hr over 8 hour(s) additional physician instruction)---- Dispensed: 1000 mL bagStop Site: #1 left AC01:00 10/10/2019Qian Bernard R.AlliGiven ZOFRAN [IVP] (ONDANSETRON HCL) Zofran 4 mg IVP X 1 dose: 4 mg19:53 10/09/2019 Dose: 4 mg IVP (NOW x1)Tobias Fortune R.N. Site: #1 left ACStart ROCEPHIN (1GM/50ML) [IVPB] Rocephin (1gm/50mL) IVPB 872288:43 10/09/2019 (CEFTRIAXONE SODIUM) mg with Dextrose 50 [...] rce(s) Supporting Document(s) ID Date Data Source [id number] 10/09/2019 07:15:00 PM EDT [facility] 1 General Instructions [facility] Emergency Department [address] [place] [address] Phone #: ext- [phone] 10/09/2019 19:00 Patient: NKEHCI OSPINA Sex: M : 1960 Age: 58yBronchopneumonia. No hypoxemia or respiratory failure.Acute urinary tract infection with cystitis. No hematuria. Not associated with indwelling catheter orobstruction.(Electronically signed by Reese Landers, Physician 10/10/2019 05:43) Name Value Range Interpretation Code Description Data Trini rce(s) Supporting Document(s) ID Date Data Source [id number] 10/09/2019 07:15:00 PM EDT [facility] 1 Clinical Report - Nurses [facility] Emergency Department [address] [place] [address] Phone #: [phone] kkk- [phone] 10/09/2019 19:00 Patient: NKECHI OSPINA Sex: M : 1960 Age: 58yTRIAGEArrived by private vehicle. Historian: staff antisubmarine officer. Accompanied by staff antisubmarine officer. ( [facility], vomiting x1 and lethargy that started today. staff antisubmarine officer says emesis was black).Triage time: 19:06 10/09/2019. Acuity: LEVEL 3.Chief Complaint: FEVER and "NOT FEELING WELL".Alert. No acute distress.This started today.Treatment [employer]:Took Tylenol. (at 5pm).SEPSIS SCREEN: SIRS Screen negative. [...] Harris RN. 2 Clinical Report - Nurses [facility] Emergency Department [address] [place] [address] Phone #: ext- [phone] 10/09/2019 19:00 Patient: NKECHI OSPINA Sex: M : 1960 Age: 58yPROBLEMS:MRSA.Urinary Incontinence.Osteoporosis.Legal blindness.Cerebral Palsy.Constipation.Seizure Disorder.Hypertension.Intellectual functioning disability. --19:20 10/09/19 Lakisha Harris RN.Medication/allergy information source: the patient's assisted record. --19:21 10/09/19 Lakisha Harris RN.ADDITIONAL SURGERIES:no [...] RN.PHYSICAL ASSESSMENT 3 Clinical Report - Nurses [facility] Emergency Department [address] [place] [address] Phone #: ext- [phone] 10/09/2019 19:00 Patient: [...] to CT by stretcher with nurse and marine engineering technicians. --20:29 10/09/19 Tobias Fortune R.N. 20:36 10/09/19. Patient returned from CT by stretcher with marine engineering technicians. --20:51 10/09/19 Tobias Fortune R.N. Critical value relayed by (21:17 10/09/2019). Critical value received by [facility]. Lactate level: 2.2. Critical value read [...] feels better. 4 Clinical Report - Nurses [facility] Emergency Department [address] [place] [address] Phone #: ext- [phone] 10/09/2019 19:00 Patient: NKECHI OSPINA Sex: M [...] of bed on. --22:16 10/09/19 Tobias Fortune R.N.16 fr urinary catheter placed in [...] Bernard R.N. 5 Clinical Report - Nurses [facility] Emergency Department [address] [place] [address] Phone #: ext- [phone] 10/09/2019 19:00 Patient: NKECHI OSPINA Sex: M [...] Patient verbalized understanding. Written instructions provided in Portuguese. The patient was discharged home. He left [...] Bernard R.N. 6 Clinical Report - Nurses [facility] Emergency Department [address] [place] [address] Phone #: ext- [phone] 10/09/2019 19:00 Patient: NKECHI OSPINA Sex: M : 1960 Age: 58yLocked/Released at 10/10/2019 02:19 by Qian Bernard R.N. Name Value Range Interpretation Code Description Data Trini rce(s) Supporting Document(s) ID Date Data Source [id number] 10/09/2019 07:15:00 PM EDT [facility] 1 Clinical Report - Physicians/Mid Levels [facility] Emergency Department [address] [place] [address] Phone #: ext- [phone] 10/09/2019 19:00 Patient: [...] 99.3 2 Clinical Report - Physicians/Mid Levels [facility] Emergency Department [address] [place] [address] Phone #: ext- [phone] 10/09/2019 19:00 Patient: NKECHI OSPINA Sex: M [...] making process. Urinalysis: (SABRINA: 10/09/2019 22:30) ( [facility] 10/09/2019 22:37) Final results Test Result Flag [...] (NORMAL: NONE Troponin-T: (SABRINA: 10/09/2019 19:45) ( [facility] 10/09/2019 20:24) Final results Test Result Flag Units (Reference) TROPONIN T <0.01 NG/ML (0.00 - 0.10) TROPONIN T0.1 ng/ml Recommended as the clinical threshold value forTroponin T. 3 Clinical Report - Physicians/Mid Levels [facility] Emergency Department [address] [place] [address] Phone #: ext- [phone] 10/09/2019 19:00 [id number] Sex: M : 1960 Age: 58yBNP: (SABRINA: [...] 2.0) 4 Clinical Report - Physicians/Mid Levels [facility] Emergency Department [address] [place] [address] Phone #: ext- [phone] 10/09/2019 19:00 Patient: NKECHI OSPINA Sex: M [...] Male GFR Interprentation 20-49 yrs >60 mL/min Uocfem93-37 yrs >56 mL/min Normal 60-69 yrs >49 mL/min Normal 70-79yrs>42 mL/min Normal 80 and above >35 mL/min Normal Female GFRInterpretation 20-39 yrs >60 mL/min Normal 40-49 yrs >58 mL/minNormal 50-59 yrs >51 mL/min Normal 60-69 yrs >45 mL/min Win[place]58-81 yrs >39 mL/min Normal 80 and above [...] ACID (LACTATE) RESULTS CALLED TO ALE [id number] [place] [address] CLIA# [id number] SEE SCANNED REPORTLipase: (SABRINA: 10/09/2019 19:45) ( MsgRcvd 10/09/2019 20:24) Final results Test Result Flag Units (Reference) LIPASE 11 L U/L (13 - 60)CT Head W/O Cont: (SABRINA: 10/09/2019 19:30) ( MsgRcvd 10/09/2019 21:13) Final resultsCT HEAD W/O CONTRASTReason(s): Head InjuryTRANSPORTATION: S IV? O2? Oxygen?(No) Room: ED Exam CT HEAD W/[place] [address] ---------NAME--------- NUMBER SEX AGE ADMIT DISC. XRAY# F/C TYPE ANAI ARBOLEDA [id number] M 58 10/09/19 20 7708 MB4 E/R DATE OF : 1960 M/R# [id number] PH#: [phone] TR-1B LOCATION: EMERGENCY DEPT TRANSCRIBED: 10/09/19 21:[address] HEAD W/O CONTRAST [id number] COMPLETED:10/09/19 21:13 yaritza [id number] Reason(s): Head Injury Head Pain Headache PHYSICIAN: LEESA BR 5 Clinical Report - Physicians/Mid Levels [facility] Emergency Department [address] [place] [address] Phone #: ext- [phone] 10/09/2019 19:00 Patient: [...] 21:12 6 Clinical Report - Physicians/Mid Levels [facility] Emergency Department [address] [place] [address] Phone #: ext- [phone] 10/09/2019 19:00 Patient: NKECHI OSPINA Sex: M : 1960 Age: 58yCT Chest W/O Cont: (SABRINA: 10/09/2019 19:30) ( MsgRcvd 10/09/2019 21:41) Final resultsCT THORAX W/O CONTRASTReason(s): CoughTRANSPORTATION: S IV? O2? Oxygen?(No) Room: ED Exam CT THORAX W/[place] [address] ---------NAME--------- NUMBER SEX AGE ADMIT DISC. XRAY# F/C TYPE ANAI ARBOLEDA [id number] M 58 10/09/19 [id number] MB4 E/R DATE OF : 1960 M/R# [id number] #: [id number] TR-1B LOCATION: EMERGENCY DEPT TRANSCRIBED: 10/09/19 21:[address] THORAX W/O CONTRAST [id number] COMPLETED:10/09/19 21:41 yaritza [id number] Reason(s): Cough Fever PHYSICIAN: LEESA BR R [...] was 7 Clinical Report - Physicians/Mid Levels [facility] Emergency Department [address] [place] [address] Phone #: ext- [phone] 10/09/2019 19:00 Patient: [...] ABD //T// PELV W/O ORAL W/O IV [address] [place] [address] ---------NAME--------- NUMBER SEX AGE ADMIT DISC. XRAY# F/C TYPE RIPPLE NKECHI [id number] M 58 10/09/19 [id number] MB4 E/R DATE OF : 1960 M/R# [id number] PH#: [phone] TR-1B LOCATION: EMERGENCY DEPT TRANSCRIBED: 10/09/19 21:[address] ABD //T// PELV W/O ORAL W/[place] [id number] COMPLETED:10/09/19 21:51 yaritza [id number] Reason(s): Abdominal Pain Vomiting PHYSICIAN: LEESA BR [...] Unremarkable. 8 Clinical Report - Physicians/Mid Levels [facility] Emergency Department [address] [place] [address] Phone #: ext- [phone] 10/09/2019 19:00 -------- Patient: NKECHI OSPINA Sex: [...] and fluid IV and he will need [facility] personnel at bedside at all times to advocate for him. I will call Dr. Reilly (Hospitalist) now for admission. Critical care performed (130 minutes). Time is exclusive of separately billable procedures. Time includes: direct patient care, patient reassessment, coordination of patient care, interpretation of data (laboratory 9 Clinical Report - Physicians/Mid Levels [facility] Emergency Department [address] [place] [address] Phone #: ext- [phone] 10/09/2019 19:00 Patient: [...] rce(s) Supporting Document(s) ID Date Data Source [id number] 10/10/2019 07:41:00 AM EDT [facility] Name Value Range Interpretation Code Description Data Trini rce(s) Supporting Document(s) CBC W/AUTOMATED DIFF [facility] COMPLETE BLOOD COUNT Leukocytes [#/volume] in Blood by Automated count 11.6 10^3/uL 4.2 - 11.0 H [facility] Erythrocytes [#/volume] in Blood by Automated count 3.76 10^6/uL 4. 50 - 6.30 L [facility] Hemoglobin [Mass/volume] in Blood 10.9 g/dL 14.0 - 16.0 L [facility] Hematocrit [Volume Fraction] of Blood by Automated count 32.9 % 4 1.0 - 51.0 L [facility] Erythrocyte mean corpuscular volume [Entitic volume] by Auto mated count 87.5 fL 80.0 - 94.0 [facility] Erythrocyte mean corpuscular hemoglobin [Entitic mass] by Automated count 29.0 pg 27.0 - 34.0 [facility] Erythrocyte mean corpuscular hemoglobin concentration [Mass/volume] by Automated count 33.1 g/dL 31.0 - 36.0 [facility] Erythrocyte distribution width [Ratio] by Automated count 13.7 % 11.5 - 14.8 [facility] Platelets [#/volume] in Blood by Automated count 247 10^3/uL 150 - 45 0 [facility] Platelet mean volume [Entitic volume] in Blood by Automated count 10.5 fL 7.4 - 10.4 H [facility] Neutrophils/100 leukocytes in Blood by Automated count 66.8 % 37. 0 - 80.0 [facility] Lymphocytes/100 leukocytes in Blood by Manual count 21.9 % 25.0 - 40.0 L [facility] Monocytes/100 leukocytes in Blood by Automated count 10.6 % 3.0 - 8.0 H [facility] Eosinophils/100 leukocytes in Blood by Automated count 0.2 % 0.0 - 7.0 [facility] Basophils/100 leukocytes in Blood by Automated count 0.2 % 0.0 - 2.0 [facility] %IG 0.3 % 0.0 - 0.0 H [facility] %NRBC 0.0 % 0.0 - 0.0 [facility] al Neutrophils [#/volume] in Blood by Automated count 7.74 10^3/uL 2.00 - 6.90 H [facility] Lymphocytes [#/volume] in Blood by Automated count 2.54 10^3/uL 0.60 - 3.40 [facility] Monocytes [#/volume] in Blood by Automated count 1.23 10^3/uL 0.00 - 0.90 H [facility] Eosinophils [#/volume] in Blood by Automated count 0.02 10^3/uL 0.00 - 0.70 [facility] Basophils [#/volume] in Blood by Automated count 0.02 10^3/uL 0.00 - 0.20 [facility] #IG 0.03 10^3/uL 0.00 - 0.10 [facility] H ospital #NRBC 0.00 10^3/uL 0.00 - 0.00 [facility] ospital MANUAL DIFF SEE BELOW [facility] ital Segmented neutrophils/100 leukocytes in Blood by Manual count 75 % 37 - 80 [facility] %LYMPH 18 % 25 - 40 L [facility] al %MONO 6 % 3 - 8 [facility] al %EOS 1 % 0 - 7 [facility] RBC MORPH NOT INDICATED [facility] Ho spital ID Date Data Source [id number] 10/10/2019 07:17:00 AM EDT [facility] Name Value Range Interpretation Code Description Data Trini rce(s) Supporting Document(s) Creatine kinase [Enzymatic activity/volume] in Serum or Plas ma 1461 U/L 30 - 170 H [facility] ID Date Data Source [id number] 10/10/2019 07:17:00 AM EDT [facility] Name Value Range Interpretation Code Description Data Trini rce(s) Supporting Document(s) COMPREHENSIVE METABOLIC PANEL [facility] COMPREHENSIVE METABOLIC PANEL Sodium [Moles/volume] in Serum or Plasma 139 mEq/L 134 - 153 [facility] Potassium [Moles/volume] in Serum or Plasma 3.5 mEq/L 3.6 - 5.0 L [facility] Chloride [Moles/volume] in Serum or Plasma 104 mEq/L 98 - 107 [facility] Carbon dioxide, total [Moles/volume] in Serum or Plasma 24 MEQ/L 22 - 30 [facility] Glucose [Mass/volume] in Serum or Plasma 89 MG/DL 65 - 110 [facility] BUN 16 MG/DL 7 - 21 [facility] al Creatinine [Mass/volume] in Serum or Plasma 0.8 MG/DL 0.7 - 1.5 [facility] BUN/CREAT 20 8 - 27 [facility] Protein [Mass/volume] in Serum or Plasma 6.3 G/DL 6.3 - 8.2 [facility] Albumin [Mass/volume] in Serum or Plasma 3.5 G/DL 3.9 - 5.0 L [facility] Globulin [Mass/volume] in Serum by calculation 2.8 GM/DL 2.4 - 3.2 [facility] A/G RATIO 1.3 0.8 - 2.0 [facility] Calcium [Mass/volume] in Serum or Plasma 8.0 MG/DL 8.4 - 10.2 L [facility] Bilirubin.total [Mass/volume] in Serum or Plasma <0.7 MG/DL 0.2 - 1.3 [facility] Alkaline phosphatase [Enzymatic activity/volume] in Serum or Plasma 92 U/L 38 - 126 [facility] Aspartate aminotransferase [Enzymatic activity/volume] in Serum or Plasma 26 U/L 5 - 40 [facility] Alanine aminotransferase [Enzymatic activity/volume] in Seru m or Plasma 15 U/L 7 - 56 [facility] Anion gap 3 in Serum or Plasma 11.0 mmol/L 8.0 - 16.0 [facility] AGE 58 yrs [facility] al NON-AA GFR >60 mL/min [facility] ital AFR AMER GFR >60 mL/min [facility] Ho spital Male GFR In terprentation 20-49 [...] >32 mL/min Normal ID Date Data Source [id number] 10/10/2019 07:16:00 AM EDT [facility] Name Value Range Interpretation Code Description Data Trini rce(s) Supporting Document(s) TROPONIN T <0.01 NG/ML 0.00 - 0.10 [facility] ospital TROPONIN T0.1 ng/ml Recommended as the c linical threshold value forTroponin T. ID Date Data Source [id number] 10/10/2019 01:14:00 AM EDT [facility] [address] [place] [address] ---------NAME--------- NUMBER SEX AGE ADMIT DISC. XRAY# F/C TYPE RIPPLE NKECHI [id number] M 58 10/09/19 [id number] MB4 O/P DATE OF : 1960 M/R# [id number] #: [id number] LOCATION: EMERGENCY DEPT TRANSCRIBED: 10/10/19 1:[address] CTA CHEST NON-CORONARY W [id number] COMPLETED:10/10/19 1:15 yaritza [id number] {REASON FOR EXAM: eLEVATED d-DIMER PHYSICIAN: ISAEL HERNÁNDEZ== R A D I O L O G Y R E P O R T =====PATIENT HISTORY:Elevated D-Dimer. Accumulated DLP-522.2 mGy, Estimated DLP- 502.6 mGy*cm. EWX532,75mL, [id number], 01/07. BUN-24, Createnine-1.2, GFR >60. Male.Time Out performed. Correct patient with 2 identifiers, type and amount ofcontrast used, correct body part and side all verified prior to examination. - RLB / LUNG (DICOM Hx)EXAM: CTA Chest with Intravenous Contrast for PE evaluationCLINICAL HISTORY: Elevated D-Dimer. Accumulated DLP-522.2 mGy, EstimatedDLP-502.6 mGy*cm. XHD635, 75mL, [id number], 01/07. BUN-24, Createnine-1.2, GFR >60.Male. Time Out performed. Correct patient with 2 identifiers, type and amountof contrast used, correct body part and side all verified prior to examination.- RLBTECHNIQUE: Axial CTA images of the chest with intravenous contrast using apulmonary embolism protocol. Multiplanar reconstructed images were created andreviewed.CONTRAST: With; FVG349, 75mL. was administered without incident.COMPARISON: None provided.FINDINGS:PULMONARY [...] rce(s) Supporting Document(s) ID Date Data Source [id number] 10/13/2019 03:08:00 PM EDT [facility] Name Value Range Interpretation Code Description Data Trini rce(s) Supporting Document(s) CULTURE URINE [facility] Ho spital _CULTURE URINE_$$[id number]$$458286$$335502$$552343$$347411$$725971$$849862$$865255$$129889$$ 750413$$478809$$187793$$926328$$820233$$856751$$114372$$805947$$378051$$725048$$ 745746$$082400$$574845$$665167$$250282$$356884$$923225$$201666 -- Continued on next page --Patient: ANAI ARBOLEDA Order: [id number] Page 2Culture: CULTURE URINE Status: Final ==== -- Continued on next page --[facility] Order: [id number] Page 2Culture: CULTURE URINE Status: Prelim =====$$[id number]$$[id number] DATE/TIME: 10/13/2019 10:06Culture: CULTURE URINE Status: FinalIsolate [...] 10/12/2019 03:27 ET Gram negative rodsUrine Culture,Comprehensive: V5Cgreippgibp coli Flag: APatient: MIGUELCASI ARBOLEDA Order: [id number] Page 3Culture: CULTURE URINE Status: Final ISOLATE [...] S S . . . . . .36363-0Gwlkcnzznf S S . . . . . .267-5Imipenem S S . . . . . .279-0Levofloxacin S S . . . . . .29639-2Vmbatdcsp S S . . . . . .6652- 2Nitrofurantoin S S . . . . . .363-2Piperacillin/Tazobactam S S . . . . . .412-7Tetracycline S S . . . . . .496-0Tobramycin S S . . . . . .508-2Trimethoprim/Sulfa S S . . . . . .516-5P1 Test performed by: [facility] MARIELLA #: [id number] [address] [place] [phone] [facility] [id number] Director : Emeterio Gregory MD NPI #:Physical Ther : 10/12/19.0911.XMT.SENT REF 10/13/19.1508.XMT.SENT REF ID Date Data Source [id number] 10/09/2019 10:37:00 PM EDT [facility] Name Value Range Interpretation Code Description Data Trini rce(s) Supporting Document(s) URINALYSIS [facility] alejandro UR[facility]ALYSIS SOURCE [facility] yellow NORMAL: Yellow [facility] CLARITY cloudy NORMAL: Clear [facility] sp[facility] Specific gravity of Urine by Test strip 1.010 1.001 - 1.030 [facility] pH 7 5 - 9 [facility] Glucose [Mass/volume] in Urine by Test strip NORM NORMAL: Negat [facility] Bilirubin.total [Presence] in Urine by Test strip NEG NORMAL: Negative [facility] Ketones [Presence] in Urine by Test strip NEG NORMAL: Negative [facility] Protein [Mass/volume] in Urine by Test strip [facility] Nit[facility] [Presence] in Urine by Test strip POS NORMAL: Negative [facility] BLOOD 10 NORMAL: Negative [facility] Leukocyte esterase [Presence] in Urine by Test strip 500 JIMMY L: Negative [facility] Urobilinogen [Mass/volume] in Urine by Test strip NOR less arthur n 1.0 mg/dL [facility] MICROSCOPIC See Below [facility] ital WBC 7 - 10 NORMAL: NONE SEEN A [facility] Erythrocytes [#/volume] in Urine by Test strip 3 - 5 NORMAL: NON E SEEN [facility] EPITHELIAL MODERATE NORMAL: NONE SEEN A [facility] Bacteria [Presence] in Urine sediment by Light microscopy 2+ MOD NORMAL: NONE SEEN A [facility] ID Date Data Source [id number] 10/09/2019 09:50:00 PM EDT [facility] [address] [place] [address] ---------NAME--------- NUMBER SEX AGE ADMIT DISC. XRAY# F/C TYPE RIPPLE NKECHI [id number] M 58 10/09/19 [id number] MB4 E/R DATE OF : 1960 M/R# [id number] #: [id number] TR-1B LOCATION: EMERGENCY DEPT TRANSCRIBED: 10/09/19 21:[address] ABD //T// PELV W/[place] ORAL W/[place] [id number] COMPLETED:10/09/19 21:51 yaritza [id number] Reason(s): Abdominal Pain Vomiting PHYSICIAN: LEESA BR [...] rce(s) Supporting Document(s) ID Date Data Source [id number] 10/09/2019 09:40:00 [place] [address] ---------NAME--------- NUMBER SEX AGE ADMIT DISC. XRAY# F/C TYPE RIPPLE NKECHI [id number] M 58 10/09/19 [id number] [id number] E/R DATE OF : 1960 M/R# [id number] #: [id number] TR-1B LOCATION: EMERGENCY DEPT TRANSCRIBED: 10/09/19 21:[address] THORAX W/O CONTRAST [id number] COMPLETED:10/09/19 21:41 yaritza [id number] Reason(s): Cough Fever PHYSICIAN: LEESA BR R [...] rce(s) Supporting Document(s) ID Date Data Source [id number] 10/09/2019 09:12:00 PM EDT [address] [address] ---------NAME--------- NUMBER SEX AGE ADMIT DISC. XRAY# F/C TYPE RIPPLE NKECHI [id number] M 58 10/09/19 [id number] MB4 E/R DATE OF : 1960 M/R# [id number] #: [id number] TR-1B LOCATION: EMERGENCY DEPT TRANSCRIBED: 10/09/19 21:[address] HEAD W/O CONTRAST [id number] COMPLETED:10/09/19 21:13 yaritza [id number] Reason(s): Head Injury Head Pain Headache PHYSICIAN: [...] rce(s) Supporting Document(s) ID Date Data Source [id number] 10/17/2019 10:31:00 AM EDT [facility] Name Value Range Interpretation Code Description Data Trini rce(s) Supporting Document(s) CULTURE BLOOD [facility] spital _CULTURE BLOOD_{ PRELIM TEST PERFORMED AT [address] [address] CLIA# [id number] SEE SCANNED REPORT ID Date Data Source [id number] 10/12/2019 09:45:00 AM EDT [facility] ANAEROBIC [id number] TO LIVE ([facility]) AT 0635 BY [facility] RESULT READBACK.The [employer] BCID Panel is a qualitative multiplexednucleic acid-based [...] rce(s) Supporting Document(s) ID Date Data Source [id number] 10/09/2019 09:11:00 PM EDT [facility] Name Value Range Interpretation Code Description Data Trini rce(s) Supporting Document(s) Lactic w Rfx (if elevated) 2.2 mmol/L 0.5-2.2 N [facility] Called to FRANCESCA ([facility]) @ 2110 by Beatriz Houston. Results readback. ID Date Data Source [id number] 10/16/2019 12:24:00 PM EDT [facility] Name Value Range Interpretation Code Description Data Trini rce(s) Supporting Document(s) CULTURE BLOOD [facility] Ho spital _CULTURE BLOOD_{ PRELIM GROWTH OF GRAM POSITIVE COCCI IN CLUSTERSGROWTH OF STAPH SPECIESREPORT TAKEN TO FLOOR 10/11/19 0800 CM TEST PERFORMED AT [address] [address] CLIA# [id number] SEE SCANNED REPORT ID Date Data Source [id number] 10/09/2019 10:04:00 PM EDT [facility] Name Value Range Interpretation Code Description Data Trini rce(s) Supporting Document(s) LACTIC ACID (LACTATE) [facility] RESULTS CALLED TO ALE [id number] [place] [address] CLIA# [id number] SEE SCANNED REPORT ID Date Data Source [id number] 10/09/2019 09:02:00 PM EDT [facility] Name Value Range Interpretation Code Description Data Trini rce(s) Supporting Document(s) Fibrin D-dimer FEU [Mass/volume] in Platelet poor plasma 0.85 ug /mL 0.27 - 0.50 H [facility] ID Date Data Source [id number] 10/09/2019 08:28:00 PM EDT [facility] Name Value Range Interpretation Code Description Data Trini rce(s) Supporting Document(s) CBC W/AUTOMATED DIFF [facility] COMPLETE BLOOD COUNT Leukocytes [#/volume] in Blood by Automated count 21.5 10^3/uL 4.2 - 11.0 H [facility] Erythrocytes [#/volume] in Blood by Automated count 4.55 10^6/uL 4. 50 - 6.30 [facility] Hemoglobin [Mass/volume] in Blood 13.1 g/dL 14.0 - 16.0 L [facility] Hematocrit [Volume Fraction] of Blood by Automated count 39.5 % 4 1.0 - 51.0 L [facility] Erythrocyte mean corpuscular volume [Entitic volume] by Auto mated count 86.8 fL 80.0 - 94.0 [facility] Erythrocyte mean corpuscular hemoglobin [Entitic mass] by Automated count 28.8 pg 27.0 - 34.0 [facility] Erythrocyte mean corpuscular hemoglobin concentration [Mass/volume] by Automated count 33.2 g/dL 31.0 - 36.0 [facility] Erythrocyte distribution width [Ratio] by Automated count 13.9 % 11.5 - 14.8 [facility] Platelets [#/volume] in Blood by Automated count 344 10^3/uL 150 - 45 0 [facility] Platelet mean volume [Entitic volume] in Blood by Automated count 10.8 fL 7.4 - 10.4 H [facility] Neutrophils/100 leukocytes in Blood by Automated count 79.4 % 37. 0 - 80.0 [facility] Lymphocytes/100 leukocytes in Blood by Manual count 10.1 % 25.0 - 40.0 L [facility] Monocytes/100 leukocytes in Blood by Automated count 9.7 % 3.0 - 8.0 H [facility] Eosinophils/100 leukocytes in Blood by Automated count 0.1 % 0.0 - 7.0 [facility] Basophils/100 leukocytes in Blood by Automated count 0.2 % 0.0 - 2.0 [facility] %IG 0.5 % 0.0 - 0.0 H [facility] Hospit al %NRBC 0.0 % 0.0 - 0.0 [facility] al Neutrophils [#/volume] in Blood by Automated count 17.11 10^3/uL 2. 00 - 6.90 H [facility] Lymphocytes [#/volume] in Blood by Automated count 2.17 10^3/uL 0.60 - 3.40 [facility] Monocytes [#/volume] in Blood by Automated count 2.09 10^3/uL 0.00 - 0.90 H [facility] Eosinophils [#/volume] in Blood by Automated count 0.02 10^3/uL 0.00 - 0.70 [facility] Basophils [#/volume] in Blood by Automated count 0.04 10^3/uL 0.00 - 0.20 [facility] #IG 0.10 10^3/uL 0.00 - 0.10 [facility] #NRBC 0.00 10^3/uL 0.00 - 0.00 [facility] MANUAL DIFF SEE BELOW [facility] ital Segmented neutrophils/100 leukocytes in Blood by Manual count 78 % 37 - 80 [facility] BAND 3 % 0 - 5 [facility] %LYMPH 11 % 25 - 40 L [facility] al %MONO 8 % 3 - 8 [facility] al RBC MORPH MORPH IS NORMAL [facility] ID Date Data Source [id number] 10/09/2019 08:24:00 PM EDT [facility] Name Value Range Interpretation Code Description Data Trini rce(s) Supporting Document(s) Lipase [Enzymatic activity/volume] in Serum or Plasma 11 U/L 13 - 60 L [facility] ID Date Data Source [id number] 10/09/2019 08:24:00 PM EDT [facility] Name Value Range Interpretation Code Description Data Trini rce(s) Supporting Document(s) Creatine kinase [Enzymatic activity/volume] in Serum or Plas ma 1470 U/L 30 - 170 H [facility] ID Date Data Source [id number] 10/09/2019 08:24:00 PM EDT [facility] Name Value Range Interpretation Code Description Data Trini rce(s) Supporting Document(s) COMPREHENSIVE METABOLIC PANEL [facility] COMPREHENSIVE METABOLIC PANEL Sodium [Moles/volume] in Serum or Plasma 139 mEq/L 134 - 153 [facility] Potassium [Moles/volume] in Serum or Plasma 4.6 mEq/L 3.6 - 5.0 [facility] Chloride [Moles/volume] in Serum or Plasma 97 mEq/L 98 - 107 L [facility] Carbon dioxide, total [Moles/volume] in Serum or Plasma 28 MEQ/L 22 - 30 [facility] Glucose [Mass/volume] in Serum or Plasma 122 MG/DL 65 - 110 H [facility] BUN 24 MG/DL 7 - 21 H [facility] al Creatinine [Mass/volume] in Serum or Plasma 1.2 MG/DL 0.7 - 1.5 [facility] BUN/CREAT 20 8 - 27 [facility] al Protein [Mass/volume] in Serum or Plasma 7.8 G/DL 6.3 - 8.2 [facility] Albumin [Mass/volume] in Serum or Plasma 4.3 G/DL 3.9 - 5.0 [facility] Globulin [Mass/volume] in Serum by calculation 3.5 GM/DL 2.4 - 3.2 H [facility] A/G RATIO 1.2 0.8 - 2.0 [facility] Calcium [Mass/volume] in Serum or Plasma 9.9 MG/DL 8.4 - 10.2 [facility] Bilirubin.total [Mass/volume] in Serum or Plasma <0.7 MG/DL 0.2 - 1.3 [facility] Alkaline phosphatase [Enzymatic activity/volume] in Serum or Plasma 120 U/L 38 - 126 [facility] Aspartate aminotransferase [Enzymatic activity/volume] in Serum or Plasma 26 U/L 5 - 40 [facility] Alanine aminotransferase [Enzymatic activity/volume] in Seru m or Plasma 18 U/L 7 - 56 [facility] Anion gap 3 in Serum or Plasma 14.0 mmol/L 8.0 - 16.0 [facility] AGE 58 yrs [facility] GFR >60 mL/min [facility] ital AFR AMER GFR >60 mL/min [facility] Ho spital Male GFR In terprentation 20-49 [...] >32 mL/min Normal ID Date Data Source [id number] 10/09/2019 08:24:00 PM EDT [facility] Name Value Range Interpretation Code Description Data Trini rce(s) Supporting Document(s) TROPONIN T <0.01 NG/ML 0.00 - 0.10 [facility] ospital TROPONIN T0.1 ng/ml Recommended as the c linical threshold value forTroponin T. ID Date Data Source [id number] 10/09/2019 08:24:00 PM EDT [facility] Name Value Range Interpretation Code Description Data Trini rce(s) Supporting Document(s) BNP 135 PG/ML 0 - 125 H [facility] al ID Date Data Source [id number] 09/28/2019 09:10:00 AM EDT [facility] ([facility]) Name Value Range Interpretation Code Description Data Trini rce(s) Supporting Document(s) Phenytoin [Mass/volume] in Serum or Plasma 22.2 UG/ML 10.0-20.0 [facility] ([facility] ) <content>note:<nlbl:demographic_changed> </content>
<content></content> ID Date Data Source [id number] 09/08/2019 09:00:00 AM EDT [facility] ([facility] Name Value Range Interpretation Code Description Data Trini rce(s) Supporting Document(s) Aspartate aminotransferase [Enzymatic activity/volume] in Serum or Plasma 16 U/L 7-37 [facility] ([facility], ) <content>note:<nlbl:demographic_changed> </content>
<content></content> Phenobarbital [Mass/volume] in Serum or Plasma 29.1 UG/ML 15.0-40.0 [facility] ([facility] ) <content>note:<nlbl:demographic_changed> </content>
<content></content> Alanine aminotransferase [Enzymatic activity/volume] in Seru m or Plasma 25 U/L 12-78 [facility] ([facility] ) <content>note:<nlbl:demographic_changed> </content>
<content></content> Phenytoin [Mass/volume] in Serum or Plasma 8.8 UG/ML 10.0-20.0 [facility] ([facility] ) <content>note:<nlbl:demographic_changed> </content>
<content></content> Levetiracetam [Mass/volume] in Serum or Plasma 20.7 ug/mL 10.0-40.0 [facility] ([facility] ) This test was developed and its performa nce characteristics determined by [facility]. It has not been cleared or approved by the Food and Drug Administration. Performed at: [address], [place], [place] [id number] 61 Physical Ther: Seng Nichols MD, Phone: [phone] ID Date Data Source [id number] 09/08/2019 09:00:00 AM EDT [facility] ([facility] ) Name Value Range Interpretation Code Description Data Trini rce(s) Supporting Document(s) White Blood Count 6.3 10 4.0-10.0 [facility] ([facility]) Red Blood Count 4.71 10 4.30-6.10 [facility] ([facility]) Hemoglobin 13.5 g/dL 13.5-17.5 [facility] ([facility]) Mean Corpuscular Hemoglobin 28.7 pg 27.0-33.0 [facility] ([facility]) Hematocrit 41.9 % 42.0-52.0 [facility] ([facility]) Mean Corpuscular Volume 89.0 fl 80.0-96.0 M [facility] ([facility]) Red Cell Distribution Width 14.2 % 11.5-14.5 [facility] ([facility]) Mean Corpuscular HGB Conc 32.2 g/dL 32.0-36.5 [facility] ([facility]) Neutrophils % 55.6 % 36.0-66.0 [facility] ([facility]) Platelet Count, Automated 221 10 150-450 [facility] ([facility]) Lymph % 28.6 % 24.0-44.0 [facility] ([facility]) Whitman % 13.0 % 0.0-5.0 [facility] ([facility]) Baso % 0.3 % 0.0-1.0 [facility] ([facility]) Eos % 2.2 % 0.0-3.0 [facility] ([facility]) Nucleated Red Blood Cell % 0.0 % 0-0 [facility] ([facility]) Immature Granulocyte % 0.3 % 0-3.0 [facility] ([facility]) Neutrophils # 3.5 10 1.5-8.5 [facility] ([facility]) Lymph # 1.8 10 1.5-5.0 [facility] ([facility]) Whitman # 0.8 10 0.0-0.8 [facility] ([facility]) Eos # 0.1 10 0.0-0.5 [facility] ([facility]) Baso # 0.0 10 0.0-0.2 [facility] ([facility]) ID Date Data Source UA URINALYSIS 08/15/2019 05:58:00 AM EDT eCW1 ([facility]) Name Value Range Interpretation Code Description Data Trini rce(s) Supporting Document(s) UA URINALYSIS eCW1 ([facility]) ID Date Data Source URINE CULTURE 08/15/2019 05:57:27 AM EDT eCW1 ([facility]) Name Value Range Interpretation Code Description Data Trini rce(s) Supporting Document(s) URINE CULTURE eCW1 ([facility]) ID Date Data Source Chest X-ray PA and lateral 08/12/2019 04:34:35 AM EDT eCW1 ( [facility]) Name Value Range Interpretation Code Description Data Trini rce(s) Supporting Document(s) Chest X-ray PA and lateral eCW 1 ([facility]) ID Date Data Source LIPASE 08/10/2019 05:17:33 AM EDT eCW1 ([facility]) Name Value Range Interpretation Code Description Data Trini rce(s) Supporting Document(s) 57 LIPASE eCW1 ([facility]) ID Date Data Source LACTIC ACID LEVEL, LACTATE 08/10/2019 05:17:07 AM EDT eCW1 ( [facility]) Name Value Range Interpretation Code Description Data Trini rce(s) Supporting Document(s) LACTIC ACID LEVEL, LACTATE eCW 1 ([facility]) ID Date Data Source [id number] 08/09/2019 07:50:00 AM EDT [facility] ([facility]) Name Value Range Interpretation Code Description Data Trini rce(s) Supporting Document(s) Phenytoin [Mass/volume] in Serum or Plasma 8.2 UG/ML 10.0-20.0 [facility] ([facility]) <content>note:<nlbl:demographic_changed> </content>
<content></content> ID Date Data Source Coronavirus 2019 Nasopharygeal (Send Out) COVID 07/01/2019 1 2:00:00 AM EDT eCW1 ([facility]) Name Value Range Interpretation Code Description Data Trini rce(s) Supporting Document(s) Testing was performed using the slava(R) SARS-CoV-[address] CORONAVIRUS 2019 NASOPHARYGEAL eCW1 ([facility]) ID Date Data Source PROCALCITONIN 07/01/2019 12:00:00 AM EDT eCW1 ([facility]) Name Value Range Interpretation Code Description Data Trini rce(s) Supporting Document(s) 0.97 PROCALCITONIN eCW1 ([facility]) ID Date Data Source RESPIRATORY PANEL 07/01/2019 12:00:00 AM EDT eCW1 ([facility]) Name Value Range Interpretation Code Description Data Trini rce(s) Supporting Document(s) This respiratory PCR panel detects Influenza A H1, H3 and RESPIRATORY PANEL eCW1 ([facility]) ID Date Data Source Rapid Flu (Mary Jane Influenza A+B HERNANDEZ) 07/01/2019 12:00:00 AM E DT eCW1 ([facility]) Name Value Range Interpretation Code Description Data Trini rce(s) Supporting Document(s) Pos Result B (Positive/Negative) e CW1 ([facility]) Neg Result A (Positive/Negative) e CW1 ([facility]) Yes Internal Controls Perform ed (Y/N) eCW1 ([facility]) ID Date Data Source [id number] 03/15/2019 09:25:00 AM EST [facility] ([facility] Name Value Range Interpretation Code Description Data Trini rce(s) Supporting Document(s) Phenytoin [Mass/volume] in Serum or Plasma 8.7 UG/ML 10.0-20.0 [facility] ([facility] ) <content>note:<nlbl:demographic_changed> </content>
<content></content> Phenobarbital [Mass/volume] in Serum or Plasma 29.0 UG/ML 15.0-40.0 [facility] ([facility] ) <content>note:<nlbl:demographic_changed> </content>
<content></content> Levetiracetam [Mass/volume] in Serum or Plasma 12.4 ug/mL 10.0-40.0 [facility] ([facility] ) This test was developed and its performa nce characteristics determined by [facility]. It has not been cleared or approved by the Food and Drug Administration. Performed at: - [facility] [id number] 61 Physical Ther: Seng Nichols MD, Phone: [phone] ID Date Data Source PTH INTACT 03/15/2019 12:00:00 AM EST eCW1 ([facility]) Name Value Range Interpretation Code Description Data Trini rce(s) Supporting Document(s) 23.1 18.5-88.0 PTH INTACT eCW1 ([facility]) ID Date Data Source VITAMIN D 25-HYDROXY 03/15/2019 12:00:00 AM EST eCW1 ([facility]) Name Value Range Interpretation Code Description Data Trini rce(s) Supporting Document(s) 81.9 30.0-100.0 TOTAL 25(OH) VITAMIN D eC W1 ([facility]) Procedure Social History Code Duration Value Status Description Data Source(s ) Smoking 01/20/2020 12:00:00 AM EST Never Smoker completed Never S moker eCW1 ([facility]) Smoking 01/20/2020 12:00:00 AM EST Never Smoker completed Never S moker eCW1 ([facility]) Smoking 01/20/2020 12:00:00 AM EST Never Smoker completed Never S moker eCW1 ([facility]) Smoking 01/20/2020 12:00:00 AM EST Never Smoker completed Never S moker eCW1 ([facility]) Smoking 01/20/2020 12:00:00 AM EST Never Smoker completed Never S moker eCW1 ([facility]) Smoking 01/20/2020 12:00:00 AM EST Never Smoker completed Never S moker eCW1 ([facility]) Smoking 01/20/2020 12:00:00 AM EST Never Smoker completed Never S moker eCW1 ([facility]) Smoking 01/20/2020 12:00:00 AM EST Never Smoker completed Never S moker eCW1 ([facility]) Smoking 01/20/2020 12:00:00 AM EST Never Smoker completed Never S moker eCW1 ([facility]) Smoking 01/03/2020 12:00:00 AM EST Never Smoker completed Never S moker eCW1 ([facility]) Smoking 01/03/2020 12:00:00 AM EST Never Smoker completed Never S moker eCW1 ([facility]) Smoking 12/01/2019 12:00:00 AM EDT Never Smoker completed Never S moker eCW1 ([facility]) Smoking 12/01/2019 12:00:00 AM EDT Never Smoker completed Never S moker eCW1 ([facility]) Smoking 12/01/2019 12:00:00 AM EDT Never Smoker completed Never S moker eCW1 ([facility]) Smoking 12/01/2019 12:00:00 AM EDT Never Smoker completed Never S moker eCW1 ([facility]) Smoking 12/01/2019 12:00:00 AM EDT Never Smoker completed Never S moker eCW1 ([facility]) Smoking 12/01/2019 12:00:00 AM EDT Never Smoker completed Never S moker eCW1 ([facility]) Smoking 12/01/2019 12:00:00 AM EDT Never Smoker completed Never S moker eCW1 ([facility]) Smoking 12/01/2019 12:00:00 AM EDT Never Smoker completed Never S moker eCW1 ([facility]) Smoking 12/01/2019 12:00:00 AM EDT Never Smoker completed Never S moker eCW1 ([facility]) Smoking 12/01/2019 12:00:00 AM EDT Never Smoker completed Never S moker eCW1 ([facility]) Smoking 12/01/2019 12:00:00 AM EDT Never Smoker completed Never S moker eCW1 ([facility]) Smoking 12/01/2019 12:00:00 AM EDT Never Smoker completed Never S moker eCW1 ([facility]) Smoking 08/10/2019 12:00:00 AM EDT Never Smoker completed Never S moker eCW1 ([facility]) Smoking 08/10/2019 12:00:00 AM EDT Never Smoker completed Never S moker eCW1 ([facility]) Smoking 08/10/2019 12:00:00 AM EDT Never Smoker completed Never S moker eCW1 ([facility]) Smoking 08/10/2019 12:00:00 AM EDT Never Smoker completed Never S moker eCW1 ([facility]) Smoking 08/10/2019 12:00:00 AM EDT Never Smoker completed Never S moker eCW1 ([facility]) Smoking 08/10/2019 12:00:00 AM EDT Never Smoker completed Never S moker eCW1 ([facility]) Smoking 08/10/2019 12:00:00 AM EDT Never Smoker completed Never S moker eCW1 ([facility]) Smoking 07/26/2019 12:00:00 AM EDT Never Smoker completed Never S moker eCW1 ([facility]) Smoking 07/26/2019 12:00:00 AM EDT Never Smoker completed Never S moker eCW1 ([facility]) Smoking 07/26/2019 12:00:00 AM EDT Never Smoker completed Never S moker eCW1 ([facility]) Smoking 07/26/2019 12:00:00 AM EDT Never Smoker completed Never S moker eCW1 ([facility]) Smoking 07/26/2019 12:00:00 AM EDT Never Smoker completed Never S moker eCW1 ([facility]) Smoking 07/26/2019 12:00:00 AM EDT Never Smoker completed Never S moker eCW1 ([facility]) Smoking 07/26/2019 12:00:00 AM EDT Never Smoker completed Never S moker eCW1 ([facility]) Vital Signs ID Date Data Source UNK Name Value Range Interpretation Code Description Data Source(s) Diastolic blood pressure 75 mm[Hg] 75 mm[Hg] eCW1 ([facility]) Systolic blood pressure 123 mm[Hg] 123 mm[Hg] e CW1 ([facility]) Respiratory rate 18 /min 18 /min eCW1 ([facility]) Heart rate 82 /min 82 /min eCW1 ([facility]) Body mass index (BMI) [Ratio] 25.05 kg/m2 25.05 kg/m2 eCW1 ([facility]) Body height 62 [in_i] 62 [in_i] eCW1 ([facility]) Body weight 137 [lb_av] 137 [lb_av] eCW1 ([facility]) Diastolic blood pressure 78 mm[Hg] 78 mm[Hg] eCW1 ([facility]) Systolic blood pressure 128 mm[Hg] 128 mm[Hg] e CW1 ([facility]) Body temperature 97.2 [degF] 97.2 [degF] eCW1 ( [facility]) Respiratory rate 18 /min 18 /min eCW1 ([facility]) Heart rate 93 /min 93 /min eCW1 ([facility]) Body mass index (BMI) [Ratio] 25.49 kg/m2 25.49 kg/m2 eCW1 ([facility]) Body height 62 [in_i] 62 [in_i] eCW1 ([facility]) Body weight 139.4 [lb_av] 139.4 [lb_av] eCW1 ([facility]) Body mass index (BMI) [Ratio] 30.2 kg/m2 30.2 k g/m2 MEDENT ([facility] Body weight 144.38 [lb_av] 144.38 [lb_av] MEDEN T ([facility] Body height 58 [in_i] 58 [in_i] MEDENT ([facility] 4'10" Diastolic blood pressure 74 mm[Hg] 74 mm[Hg] eCW1 ([facility]) Systolic blood pressure 114 mm[Hg] 114 mm[Hg] e CW1 ([facility]) Body temperature 98.9 [degF] 98.9 [degF] eCW1 ( [facility]) Respiratory rate 18 /min 18 /min eCW1 ([facility]) Heart rate 90 /min 90 /min eCW1 ([facility]) Body mass index (BMI) [Ratio] 25.05 kg/m2 25.05 kg/m2 eCW1 ([facility]) Body height 62 [in_i] 62 [in_i] eCW1 ([facility]) Body weight 137 [lb_av] 137 [lb_av] eCW1 ([facility]) Body temperature 98.3 [degF] 98.3 [degF] eCW1 ( [facility]) Respiratory rate 18 /min 18 /min eCW1 ([facility]) Heart rate 88 /min 88 /min eCW1 ([facility]) Body mass index (BMI) [Ratio] 25.05 kg/m2 25.05 kg/m2 eCW1 ([facility]) Body height 62 [in_i] 62 [in_i] eCW1 ([facility]) Body weight 137 [lb_av] 137 [lb_av] eCW1 ([facility]) Body temperature 98.3 [degF] 98.3 [degF] eCW1 ( [facility]) Respiratory rate 18 /min 18 /min eCW1 ([facility]) Heart rate 88 /min 88 /min eCW1 ([facility]) Body mass index (BMI) [Ratio] 25.05 kg/m2 25.05 kg/m2 eCW1 ([facility]) Body height 62 [in_i] 62 [in_i] eCW1 ([facility]) Body weight 137 [lb_av] 137 [lb_av] eCW1 ([facility]) Body temperature 100.6 [degF] 100.6 [degF] eCW1 ([facility]) Respiratory rate 22 /min 22 /min eCW1 ([facility]) Body mass index (BMI) [Ratio] 25.91 kg/m2 25.91 kg/m2 eCW1 ([facility]) Body height 62 [in_us] 62 [in_us] eCW1 ([facility]) Body weight Measured 141.7 [lb_av] 141.7 [lb_av ] eCW1 ([facility]) Body weight 141.00 [lb_av] 141.00 [lb_av] MEDEN T ([facility], [facility]) Body temperature 95.9 [degF] 95.9 [degF] MEDENT ([facility]) Oxygen saturation in Arterial blood by Pulse oximetry 98 % 98 % MEDENT ([facility], [facility]) Respiratory rate 16 /min 16 /min MEDENT ( [facility], [facility]) Heart rate 83 /min 83 /min MEDENT ([facility], [facility]) Diastolic blood pressure 80 mm[Hg] 80 mm[Hg] eCW1 ([facility]) Systolic blood pressure 124 mm[Hg] 124 mm[Hg] e CW1 ([facility]) Body temperature 99.7 [degF] 99.7 [degF] eCW1 ( [facility]) Respiratory rate 18 /min 18 /min eCW1 ([facility]) Heart rate 104 /min 104 /min eCW1 ([facility]) Body mass index (BMI) [Ratio] 25.05 kg/m2 25.05 kg/m2 W1 ([facility]) Body height 62 [in_us] 62 [in_us] eCW1 ([facility]) Body weight Measured 137 [lb_av] 137 [lb_av] eC W1 ([facility]) Respiratory rate 16 /min 16 /min MEDENT ( [facility], ) Heart rate 72 /min 72 /min MEDENT ([facility], ) Diastolic blood pressure 70 mm[Hg] 70 mm[Hg] MEDENT ([facility], ) Systolic blood pressure 122 mm[Hg] 122 mm[Hg] M EDENT ([facility], ) Diastolic blood pressure 76 mm[Hg] 76 mm[Hg] eCW1 ([facility]) Systolic blood pressure 118 mm[Hg] 118 mm[Hg] e CW1 ([facility]) Body temperature 96.8 [degF] 96.8 [degF] eCW1 ( [facility]) Respiratory rate 18 /min 18 /min eCW1 ([facility]) Heart rate 97 /min 97 /min eCW1 ([facility]) Body mass index (BMI) [Ratio] 25.05 kg/m2 25.05 kg/m2 eCW1 ([facility]) Body height 62 [in_us] 62 [in_us] eCW1 ([facility]) Body weight Measured 137 [lb_av] 137 [lb_av] eC W1 ([facility]) ID Date Data Source [id number] 10/27/2019 08:43:21 AM EDT [facility] Name Value Range Interpretation Code Description Data Source(s) WEIGHT RECORDED 146.[address] [facility] WEIGHT RECORDED 146.[address] [facility] Patient Treatment Plan of Care Planned Activity Planned Date Details Description Data Source (s) Magnesium Hydroxide 80 MG/ML Oral Suspension 03/13/2020 12:00:00 AM EST eCW1 ([facility]) Docusate Sodium 50 MG / sennosides, MCFP 8.6 MG Oral Ta blet 03/13/2020 12:00:00 AM EST eCW1 ([facility]) montelukast 10 MG Oral Tablet 12/16/2019 12:00:00 AM EDT eCW1 ([facility]) montelukast 10 MG Oral Tablet 12/16/2019 12:00:00 AM EDT eCW1 ([facility]) montelukast 10 MG Oral Tablet 12/16/2019 12:00:00 AM EDT eCW1 ([facility]) montelukast 10 MG Oral Tablet 12/16/2019 12:00:00 AM EDT eCW1 ([facility]) montelukast 10 MG Oral Tablet 12/16/2019 12:00:00 AM EDT eCW1 ([facility]) montelukast 10 MG Oral Tablet 12/16/2019 12:00:00 AM EDT eCW1 ([facility]) montelukast 10 MG Oral Tablet 12/16/2019 12:00:00 AM EDT eCW1 ([facility]) montelukast 10 MG Oral Tablet 12/16/2019 12:00:00 AM EDT eCW1 ([facility]) montelukast 10 MG Oral Tablet 12/16/2019 12:00:00 AM EDT eCW1 ([facility]) zoledronic acid 0.05 MG/ML Injectable Solution [Reclas t] 12/06/2019 12:00:00 AM EDT eCW1 ([facility]) zoledronic acid 0.05 MG/ML Injectable Solution [Reclas t] 12/06/2019 12:00:00 AM EDT eCW1 ([facility]) zoledronic acid 0.05 MG/ML Injectable Solution [Reclas t] 12/06/2019 12:00:00 AM EDT eCW1 ([facility]) zoledronic acid 0.05 MG/ML Injectable Solution [Reclas t] 12/06/2019 12:00:00 AM EDT eCW1 ([facility]) zoledronic acid 0.05 MG/ML Injectable Solution [Reclas t] 12/06/2019 12:00:00 AM EDT eCW1 ([facility]) zoledronic acid 0.05 MG/ML Injectable Solution [Reclas t] 12/06/2019 12:00:00 AM EDT eCW1 ([facility]) zoledronic acid 0.05 MG/ML Injectable Solution [Reclas t] 12/06/2019 12:00:00 AM EDT eCW1 ([facility]) zoledronic acid 0.05 MG/ML Injectable Solution [Reclas t] 12/06/2019 12:00:00 AM EDT eCW1 ([facility]) zoledronic acid 0.05 MG/ML Injectable Solution [Reclas t] 12/06/2019 12:00:00 AM EDT eCW1 ([facility]) zoledronic acid 0.05 MG/ML Injectable Solution [Reclas t] 12/06/2019 12:00:00 AM EDT eCW1 ([facility]) zoledronic acid 0.05 MG/ML Injectable Solution [Reclas t] 12/06/2019 12:00:00 AM EDT eCW1 ([facility]) zoledronic acid 0.05 MG/ML Injectable Solution [Reclas t] 12/06/2019 12:00:00 AM EDT eCW1 ([facility]) zoledronic acid 0.05 MG/ML Injectable Solution [Reclas t] 12/06/2019 12:00:00 AM EDT eCW1 ([facility]) zoledronic acid 0.05 MG/ML Injectable Solution [Reclas t] 12/06/2019 12:00:00 AM EDT eCW1 ([facility]) Flonase Allergy Relief 50 MCG/ACT 12/02/2019 12:00:00 AM EDT eCW1 ([facility]) Flonase Allergy Relief 50 MCG/ACT 12/02/2019 12:00:00 AM EDT eCW1 ([facility]) Flonase Allergy Relief 50 MCG/ACT 12/02/2019 12:00:00 AM EDT eCW1 ([facility]) Flonase Allergy Relief 50 MCG/ACT 12/02/2019 12:00:00 AM EDT eCW1 ([facility]) Flonase Allergy Relief 50 MCG/ACT 12/02/2019 12:00:00 AM EDT eCW1 ([facility]) Flonase Allergy Relief 50 MCG/ACT 12/02/2019 12:00:00 AM EDT eCW1 ([facility]) Flonase Allergy Relief 50 MCG/ACT 12/02/2019 12:00:00 AM EDT eCW1 ([facility]) Flonase Allergy Relief 50 MCG/ACT 12/02/2019 12:00:00 AM EDT eCW1 ([facility]) Flonase Allergy Relief 50 MCG/ACT 12/02/2019 12:00:00 AM EDT eCW1 ([facility]) Flonase Allergy Relief 50 MCG/ACT 12/02/2019 12:00:00 AM EDT eCW1 ([facility]) Flonase Allergy Relief 50 MCG/ACT 12/02/2019 12:00:00 AM EDT eCW1 ([facility]) Flonase Allergy Relief 50 MCG/ACT 12/02/2019 12:00:00 AM EDT eCW1 ([facility]) Flonase Allergy Relief 50 MCG/ACT 12/02/2019 12:00:00 AM EDT eCW1 ([facility]) Flonase Allergy Relief 50 MCG/ACT 12/02/2019 12:00:00 AM EDT eCW1 ([facility]) Flonase Allergy Relief 50 MCG/ACT 12/02/2019 12:00:00 AM EDT eCW1 ([facility]) Flonase Allergy Relief 50 MCG/ACT 12/02/2019 12:00:00 AM EDT eCW1 ([facility]) Flonase Allergy Relief 50 MCG/ACT 12/02/2019 12:00:00 AM EDT eCW1 ([facility]) Flonase Allergy Relief 50 MCG/ACT 12/02/2019 12:00:00 AM EDT eCW1 ([facility]) Flonase Allergy Relief 50 MCG/ACT 12/02/2019 12:00:00 AM EDT eCW1 ([facility]) Flonase Allergy Relief 50 MCG/ACT 12/02/2019 12:00:00 AM EDT eCW1 ([facility]) Flonase Allergy Relief 50 MCG/ACT 12/02/2019 12:00:00 AM EDT eCW1 ([facility]) Flonase Allergy Relief 50 MCG/ACT 12/02/2019 12:00:00 AM EDT eCW1 ([facility]) Bisacodyl 10 MG Rectal Suppository 11/25/2019 12:00:00 AM EDT eCW1 ([facility]) Sodium Phosphate, Dibasic 59.3 MG/ML / S odium Phosphate, Monobasic 161 MG/ML Enema 11/25/2019 12:00:00 AM EDT eCW1 ([facility]) InCare Straight 14FR/20CM 1 11/25/2019 12:00:00 AM EDT eCW1 ([facility]) Sodium Phosphate, Dibasic 59.3 MG/ML / S odium Phosphate, Monobasic 161 MG/ML Enema 11/25/2019 12:00:00 AM EDT eCW1 ([facility]) Bisacodyl 10 MG Rectal Suppository 11/25/2019 12:00:00 AM EDT eCW1 ([facility]) May Have - 11/25/2019 12:00:00 AM EDT e CW1 ([facility]) [employer]ight 14FR/20CM 1 11/25/2019 12:00:00 AM EDT eCW1 ([facility]) Sodium Phosphate, Dibasic 59.3 MG/ML / S odium Phosphate, Monobasic 161 MG/ML Enema 11/25/2019 12:00:00 AM EDT eCW1 ([facility]) Bisacodyl 10 MG Rectal Suppository 11/25/2019 12:00:00 AM EDT eCW1 ([facility]) May Have - 11/25/2019 12:00:00 AM EDT e CW1 ([facility]) [employer]Care [employer]ight 14FR/20CM 1 11/25/2019 12:00:00 AM EDT eCW1 ([facility]) Sodium Phosphate, Dibasic 59.3 MG/ML / S odium Phosphate, Monobasic 161 MG/ML Enema 11/25/2019 12:00:00 AM EDT eCW1 ([facility]) Bisacodyl 10 MG Rectal Suppository 11/25/2019 12:00:00 AM EDT eCW1 ([facility]) May Have - 11/25/2019 12:00:00 AM EDT e CW1 ([facility]) [employer]ight 14FR/20CM 1 11/25/2019 12:00:00 AM EDT eCW1 ([facility]) Sodium Phosphate, Dibasic 59.3 MG/ML / S odium Phosphate, Monobasic 161 MG/ML Enema 11/25/2019 12:00:00 AM EDT eCW1 ([facility]) Bisacodyl 10 MG Rectal Suppository 11/25/2019 12:00:00 AM EDT eCW1 ([facility]) May Have - 11/25/2019 12:00:00 AM EDT e CW1 ([facility]) NITROFURANTOIN, MACROCRYSTALS 25 MG / Ni trofurantoin, Monohydrate 75 MG Oral Capsule 08/15/2019 12:00:00 AM EDT eCW1 ([facility]) NITROFURANTOIN, MACROCRYSTALS 25 MG / Ni trofurantoin, Monohydrate 75 MG Oral Capsule 08/15/2019 12:00:00 AM EDT eCW1 ([facility]) NITROFURANTOIN, MACROCRYSTALS 25 MG / Ni trofurantoin, Monohydrate 75 MG Oral Capsule 08/15/2019 12:00:00 AM EDT eCW1 ([facility]) NITROFURANTOIN, MACROCRYSTALS 25 MG / Ni trofurantoin, Monohydrate 75 MG Oral Capsule 08/15/2019 12:00:00 AM EDT eCW1 ([facility]) NITROFURANTOIN, MACROCRYSTALS 25 MG / Ni trofurantoin, Monohydrate 75 MG Oral Capsule 08/15/2019 12:00:00 AM EDT eCW1 ([facility]) NITROFURANTOIN, MACROCRYSTALS 25 MG / Ni trofurantoin, Monohydrate 75 MG Oral Capsule 08/15/2019 12:00:00 AM EDT eCW1 ([facility]) NITROFURANTOIN, MACROCRYSTALS 25 MG / Ni trofurantoin, Monohydrate 75 MG Oral Capsule 08/15/2019 12:00:00 AM EDT eCW1 ([facility]) Chlorthalidone 25 MG Oral Tablet 07/26/2019 12:00:00 AM EDT eCW1 ([facility]) Chlorthalidone 25 MG Oral Tablet 07/26/2019 12:00:00 AM EDT eCW1 ([facility]) Chlorthalidone 25 MG Oral Tablet 07/26/2019 12:00:00 AM EDT eCW1 ([facility]) Chlorthalidone 25 MG Oral Tablet 07/26/2019 12:00:00 AM EDT eCW1 ([facility]) Chlorthalidone 25 MG Oral Tablet 07/26/2019 12:00:00 AM EDT eCW1 ([facility]) Chlorthalidone 25 MG Oral Tablet 07/26/2019 12:00:00 AM EDT eCW1 ([facility]) Chlorthalidone 25 MG Oral Tablet 07/26/2019 12:00:00 AM EDT eCW1 ([facility]) May Have - 07/14/2019 12:00:00 AM EDT e CW1 ([facility]) Oseltamivir 75 MG Oral Capsule 07/01/2019 12:00:00 AM EDT eCW1 ([facility]) Wheelchair _ 03/18/2019 12:00:00 AM EST e CW1 ([facility]) Triamcinolone Acetonide 1 MG/ML Topical Cream eCW1 ([facility]) Triamcinolone Acetonide 1 MG/ML Topical Cream eCW1 ([facility])
[2020-03-19] MEDS ORDERED: NS 1,000 ML IV ONE (06:45)
[2020-03-19 07:58] LABS: BASO % 0.3 % (0.0-1.0); EOS # 0.1 10^3/uL (0.0-0.5); EOS % 0.5 % (0.0-3.0); HEMATOCRIT 34.9 % (42.0-52.0); HEMOGLOBIN 11.5 g/dl (13.5-17.5); LYMPH # 2.2 10^3/uL (1.5-5.0); LYMPH % 18.7 % (24.0-44.0); MEAN CORPUSCULAR HEMOGLOBIN 28.3 pg (27.0-33.0); MEAN CORPUSCULAR VOLUME 85.7 fl (80.0-96.0); MONO # 1.8 10^3/uL (0.0-0.8); MONO % 15.2 % (0.0-5.0); NEUTROPHILS # 7.5 10^3/uL (1.5-8.5); PLATELET COUNT, AUTOMATED 442 10^3/uL (150-450); RED BLOOD COUNT 4.07 10^6/uL (4.30-6.10); WHITE BLOOD COUNT 11.6 10^3/uL (4.0-10.0)
[2020-03-19 08:22] LABS: ALBUMIN 3.5 GM/DL (3.2-5.2); ALT/SGPT 36 U/L (12-78); BILIRUBIN,DIRECT < 0.1 MG/DL (0.0-0.2); BILIRUBIN,TOTAL 0.1 MG/DL (0.2-1.0); CPK CREATINE PHOSPHOKINASE 86 U/L (39-308); PHENOBARBITAL LEVEL 22.9 UG/ML (15.0-40.0); PHENYTOIN (DILANTIN) 3.5 UG/ML (10.0-20.0); TOTAL PROTEIN 7.5 GM/DL (6.4-8.2)
--- NOTE | 2020-03-19 08:31 | REP ---
INDICATION: Status Epilepticus. COMPARISON: Comparison chest x-ray 08 March 2020. TECHNIQUE: Portable upright AP chest radiograph. FINDINGS: The right lung is well inflated and clear. The pleural angles are sharp bilaterally. The heart is not felt to be enlarged. There is a dextroconvex curvature again noted in the thoracic spine. There are some increased markings in the left lower lobe behind the heart consistent with atelectasis and or infiltrate. The left lung is otherwise clear. No acute bony abnormality.. IMPRESSION: Increased markings in the left base behind the heart consistent with atelectasis or infiltrate.. <Electronically signed by Jarrell Glynn > 03/19/20 [id number]
[2020-03-19] MEDS ORDERED: DILA100C PO (09:11)
[2020-03-19] MEDS ORDERED: KEPP10002 PO (09:11)
[2020-03-19] MEDS ORDERED: PHEN32.44 PO (09:11)
[2020-03-19] MEDS ORDERED: LEVO750T13 PO (09:14)
[2020-03-19 09:15] VITALS: BP 153/86
== END 2020-03-19 09:24 | disposition home or self-care (01) ==
LOC: M ED 05:04
DX: G40.909 Epilepsy, unspecified, not intractable, without status epilepticus (principal); R91.8 Other nonspecific abnormal finding of lung field; F79 Unspecified intellectual disabilities; Z79.899 Other long term (current) drug therapy; Z79.82 Long term (current) use of aspirin

== ENCOUNTER → 2020-03-27 | Outpatient (CLI) | payer MEDICARE, MEDICAID ==
[~2020-03-27] MED LIST changes: +KEPP10002 PO; +LEVO750T13 PO; +MONT10TA10 PO; -MONT5TAB2 PO
[2020-03-27 10:15] LABS: PHENYTOIN (DILANTIN) 10.9 UG/ML (10.0-20.0)
== END ==
LOC: M LAB 08:49
PROVIDERS: ATTEND Physician Assistant Medical
DX: R56.9 Unspecified convulsions (principal)

== ENCOUNTER → 2020-04-06 | Outpatient (REF) | payer MEDICARE, MEDICAID ==
[~2020-04-06] MED LIST changes: -GNP8.6TA PO; +GNP8.6TA7 PO
[2020-04-06 15:52] LABS: BASO % 0.3 % (0.0-1.0); EOS % 0.4 % (0.0-3.0); HEMATOCRIT 39.5 % (42.0-52.0); HEMOGLOBIN 12.5 g/dl (13.5-17.5); LYMPH % 14.7 % (24.0-44.0); MEAN CORPUSCULAR HEMOGLOBIN 28.2 pg (27.0-33.0); MEAN CORPUSCULAR HGB CONC 31.6 g/dl (32.0-36.5); MONO # 1.3 10^3/uL (0.0-0.8); MONO % 18.9 % (2.0-8.0); NEUTROPHILS # 4.6 10^3/uL (1.5-8.5); NEUTROPHILS % 65.4 % (36.0-66.0); PLATELET COUNT, AUTOMATED 238 10^3/uL (150-450); RED BLOOD COUNT 4.44 10^6/uL (4.30-6.10); WHITE BLOOD COUNT 7.1 10^3/uL (4.0-10.0)
[2020-04-06 16:23] LABS: ALBUMIN 3.8 GM/DL (3.2-5.2); ALT/SGPT 27 U/L (12-78); BILIRUBIN,TOTAL 0.1 MG/DL (0.2-1.0); BLOOD UREA NITROGEN 11 MG/DL (7-18); C REACTIVE PROTEIN QUANTITATIV 4.06 MG/DL (0.00-0.30); CALCIUM LEVEL 8.8 MG/DL (8.5-10.1); CARBON DIOXIDE LEVEL 27 MEQ/L (21-32); CHLORIDE LEVEL 104 MEQ/L (98-107); CREATININE FOR GFR 0.63 MG/DL (0.70-1.30); FERRITIN 13 NG/ML (26-388); FREE T4 0.85 NG/DL (0.76-1.46); GLOMERULAR FILTRATION RATE > 60.0 (>56); GLUCOSE, FASTING 99 MG/DL (70-100); IRON (FE) 109 UG/DL (65-175); LIPASE 59 U/L (73-393); PERCENT SATURATION 29.7 % (19.7-50.0); POTASSIUM SERUM 4.5 MEQ/L (3.5-5.1); SODIUM LEVEL 139 MEQ/L (136-145); TOTAL IRON BINDING CAPACITY 367 UG/DL (250-450); TOTAL PROTEIN 7.9 GM/DL (6.4-8.2)
[2020-04-06 16:45] LABS: PTH INTACT 33.9 PG/ML (18.5-88.0); TOTAL 25(OH) VITAMIN D 58.8 NG/ML (30.0-100.0); VITAMIN B12 LEVEL 387 PG/ML (247-911)
[2020-04-06 18:54] LABS: ERYTHROCYTE SEDIMENTATION RATE 37 mm/hr (0-20)
[2020-04-10 10:18] LABS: ALBUMIN 4.09 GM/DL (3.29-5.55); ALBUMIN % 51.8 % (55.8-66.1); ALPHA-1-GLOBULIN % 5.3 % (2.9-4.9); ALPHA-1-GLOBULINS 0.42 GM/DL (0.17-0.41); ALPHA-2-GLOBULINS 1.03 GM/DL (0.42-0.99); ALPHA-2-GLOBULINS % 13.1 % (7.1-11.8); BETA-1-GLOBULINS 0.51 GM/DL (0.28-0.60); BETA-1-GLOBULINS % 6.4 % (4.7-7.2); BETA-2-GLOBULINS 0.53 GM/DL (0.19-0.55); BETA-2-GLOBULINS % 6.7 % (3.2-6.5); GAMMA GLOBULIN % 16.7 % (11.1-18.8); GAMMA GLOBULINS 1.32 GM/DL (0.65-1.58)
== END ==
LOC: M SFHCPLAZ 13:02
PROVIDERS: ATTEND Family Medicine
DX: D64.9 Anemia, unspecified (principal); E55.9 Vitamin D deficiency, unspecified; E44.0 Moderate protein-calorie malnutrition; Z12.5 Encounter for screening for malignant neoplasm of prostate
CPT/HCPCS: 36415; 80053; 82306; 82607; 82728; 83550; 83690; 83970; 84165; 84439; 84443; 85025; 85652; 86140; 86677; G0103; G0463

== ENCOUNTER → 2020-04-19 | Outpatient (CLI) | payer MEDICARE, MEDICAID ==
[~2020-04-19] MED LIST changes: +GNP8.6TA PO; -GNP8.6TA7 PO
--- NOTE | 2020-04-19 10:56 | REPVR ---
PROCEDURE INFORMATION: Exam: CT Head Without Contrast Exam date and time: 04/19/2020 10:37 AM Age: 59 years old Clinical indication: Other: Moderate protein calorie malnutrition TECHNIQUE: Imaging protocol: Computed tomography of the head without contrast. Radiation optimization: All CT scans at this facility use at least one of these dose optimization techniques: automated exposure control; mA and/or kV adjustment per patient size (includes targeted exams where dose is matched to clinical indication); or iterative reconstruction. COMPARISON: CT Head without contrast 10/17/2016 12:53 PM FINDINGS: Brain: Chronic dilatation of the occipital horns is again seen. There are chronic bilateral lacunar infarcts of the basal ganglia and a chronic appearing infarct of the right thalamus has appeared since the prior comparison study. Parasagittal hypodensity bilaterally is chronic and suspicious for watershed infarcts in the past. Cerebral ventricles: No ventriculomegaly. Bones/joints: Unremarkable. No acute fracture. Paranasal sinuses: Visualized sinuses are unremarkable. No fluid levels. Mastoid air cells: Visualized mastoid air cells are well aerated. Soft tissues: Unremarkable. IMPRESSION: 1. Chronic dilatation of the occipital horns is again seen. There are chronic bilateral lacunar infarcts of the basal ganglia and a chronic appearing infarct of the right thalamus has appeared since the prior comparison study. Parasagittal hypodensity bilaterally is chronic and suspicious for watershed infarcts in the past. 2. No acute intracranial process is identified. Electronically signed by: Lester Luis On 04/19/2020 10:56:21 AM
== END ==
LOC: M RAD 10:26
PROVIDERS: ATTEND Family Medicine
DX: E44.0 Moderate protein-calorie malnutrition (principal)

== ENCOUNTER → 2020-04-26 | Outpatient (CLI) | payer MEDICARE, MEDICAID ==
[2020-04-26 10:31] LABS: PHENOBARBITAL LEVEL 28.6 UG/ML (15.0-40.0); PHENYTOIN (DILANTIN) 18.8 UG/ML (10.0-20.0)
== END ==
LOC: M LAB 09:22
PROVIDERS: ATTEND Physician Assistant Medical
DX: R56.9 Unspecified convulsions (principal)

== ENCOUNTER → 2020-07-09 | Outpatient (CLI) | payer MEDICARE, MEDICAID ==
[~2020-07-09] MED LIST changes: -GNP8.6TA PO; +GNP8.6TA7 PO
[2020-07-09 10:29] LABS: BASO % 0.4 % (0.0-1.0); EOS # 0.1 10^3/uL (0.0-0.5); HEMATOCRIT 39.2 % (42.0-52.0); HEMOGLOBIN 12.1 g/dl (13.5-17.5); LYMPH # 2.3 10^3/uL (1.5-5.0); LYMPH % 29.3 % (24.0-44.0); MEAN CORPUSCULAR HEMOGLOBIN 24.4 pg (27.0-33.0); MEAN CORPUSCULAR HGB CONC 30.9 g/dl (32.0-36.5); MONO % 12.3 % (2.0-8.0); NEUTROPHILS # 4.4 10^3/uL (1.5-8.5); NEUTROPHILS % 56.5 % (36.0-66.0); PLATELET COUNT, AUTOMATED 349 10^3/uL (150-450); RED BLOOD COUNT 4.96 10^6/uL (4.30-6.10); WHITE BLOOD COUNT 7.9 10^3/uL (4.0-10.0)
[2020-07-09 13:39] LABS: ALBUMIN 3.9 GM/DL (3.2-5.2); ALT/SGPT 37 U/L (12-78); BILIRUBIN,TOTAL 0.2 MG/DL (0.2-1.0); BLOOD UREA NITROGEN 10 MG/DL (7-18); CALCIUM LEVEL 9.4 MG/DL (8.5-10.1); CARBON DIOXIDE LEVEL 28 MEQ/L (21-32); CHLORIDE LEVEL 104 MEQ/L (98-107); CHOLESTEROL LEVEL 154 MG/DL (<200); CHOLESTEROL RISK RATIO 3.276 (<5); CREATININE FOR GFR 0.56 MG/DL (0.70-1.30); FERRITIN 9 NG/ML (26-388); GLOMERULAR FILTRATION RATE > 60.0 (>56); GLUCOSE, FASTING 78 MG/DL (70-100); HDL CHOLESTEROL 47 MG/DL (>40); LDL CHOLESTEROL 84 MG/DL (<100); NON-HDL-C 107 MG/DL; POTASSIUM SERUM 4.6 MEQ/L (3.5-5.1); SODIUM LEVEL 137 MEQ/L (136-145); TOTAL PROTEIN 8.3 GM/DL (6.4-8.2); TRIGLYCERIDES LEVEL 114 MG/DL (<150); VITAMIN B12 LEVEL 401 PG/ML (247-911)
== END ==
LOC: M LAB 09:32
PROVIDERS: ATTEND Family Medicine
DX: D50.9 Iron deficiency anemia, unspecified (principal); I10 Essential (primary) hypertension; G40.909 Epilepsy, unspecified, not intractable, without status epilepticus

== ENCOUNTER → 2020-08-21 | Outpatient (CLI) | payer MEDICARE, MEDICAID ==
[~2020-08-21] MED LIST changes: +BISA10SU20 PR; +FERR1TAB8 PO; +FLEEENE12 PR; -GNP8.6TA7 PO; +LEVE15SO PO; +LORA-674 PO; +MILKSUS3 PO; +MIRA1POW3 PO; -MONT10TA10 PO; +MONT10TA97 PO; +OMEP40CA4 PO; -OMEP40CA97 PO; -PERI12LIQ PO; +PERI12LIQ SSP; +SENN-111 PO; +SENN8.6T28 PO
[2020-08-21 13:54] LABS: BASO % 0.2 % (0.0-1.0); EOS % 0.7 % (0.0-3.0); HEMOGLOBIN 12.2 g/dl (13.5-17.5); LYMPH # 1.8 10^3/uL (1.5-5.0); LYMPH % 29.4 % (24.0-44.0); MEAN CORPUSCULAR HEMOGLOBIN 23.6 pg (27.0-33.0); MEAN CORPUSCULAR HGB CONC 30.5 g/dl (32.0-36.5); MEAN CORPUSCULAR VOLUME 77.4 fl (80.0-96.0); MONO % 16.1 % (2.0-8.0); NEUTROPHILS # 3.2 10^3/uL (1.5-8.5); NEUTROPHILS % 53.3 % (36.0-66.0); PLATELET COUNT, AUTOMATED 277 10^3/uL (150-450); RED BLOOD COUNT 5.17 10^6/uL (4.30-6.10)
[2020-08-21 14:31] LABS: PERCENT SATURATION 32.6 % (19.7-50.0)
== END ==
LOC: M PLALAB 11:11
PROVIDERS: ATTEND Family Medicine
DX: D50.9 Iron deficiency anemia, unspecified (principal)
CPT/HCPCS: 36415; 82728; 83550; 85025; 86677; G0463

== ENCOUNTER 2020-09-25 19:24 | Emergency (ER) | payer MEDICARE, MEDICAID ==
[~2020-09-25 19:24] MED LIST changes: -BISA10SU20 PR; -FERR1TAB8 PO; -FLEEENE12 PR; -LEVE15SO PO; -LORA-674 PO; -MILKSUS3 PO; -MIRA1POW3 PO; +MONT10TA10 PO; -MONT10TA97 PO; -SENN8.6T28 PO
[2020-09-25 21:29] LABS: BASO % 0.3 % (0.0-1.0); EOS # 0.1 10^3/uL (0.0-0.5); EOS % 0.5 % (0.0-3.0); HEMATOCRIT 40.1 % (42.0-52.0); HEMOGLOBIN 12.7 g/dl (13.5-17.5); LYMPH # 2.6 10^3/uL (1.5-5.0); LYMPH % 25.2 % (24.0-44.0); MEAN CORPUSCULAR HGB CONC 31.7 g/dl (32.0-36.5); MEAN CORPUSCULAR VOLUME 79.1 fl (80.0-96.0); MONO # 1.5 10^3/uL (0.0-0.8); MONO % 14.6 % (2.0-8.0); NEUTROPHILS # 6.1 10^3/uL (1.5-8.5); NEUTROPHILS % 59.1 % (36.0-66.0); PLATELET COUNT, AUTOMATED 291 10^3/uL (150-450); RED BLOOD COUNT 5.07 10^6/uL (4.30-6.10)
[2020-09-25 21:31] LABS: WHITE BLOOD COUNT 10.2 10^3/uL (4.0-10.0)
[2020-09-25 21:35] LABS: INR 1.01; PROTHROMBIN TIME 13.7 SECONDS (12.7-14.5)
[2020-09-25 21:36] LABS: PARTIAL THROMBOPLASTIN TIME 34.7 SECONDS (25.9-37.0)
[2020-09-25 21:41] LABS: ALT/SGPT 31 U/L (12-78); BILIRUBIN,DIRECT < 0.1 MG/DL (0.0-0.2); BILIRUBIN,TOTAL 0.2 MG/DL (0.2-1.0); LIPASE 71 U/L (73-393); TOTAL PROTEIN 7.9 GM/DL (6.4-8.2)
[2020-09-25 21:44] LABS: CK-MB VALUE MASS < 1.0 NG/ML (<3.6); CPK CREATINE PHOSPHOKINASE 53 U/L (39-308); MB/CK RELATIVE INDEX 1.89 (< OR =4); TROPONIN I < 0.02 NG/ML (< 0.10)
[2020-09-25] MEDS ORDERED: ISOVUE-370 76% 100ML VIAL As Ordered ONE (22:03)
--- NOTE | 2020-09-25 23:00 | REPVR ---
PROCEDURE INFORMATION: Exam: CT Abdomen And Pelvis With Contrast Exam date and time: 09/25/2020 10:23 PM Age: 59 years old Clinical indication: Abdominal pain; Generalized; Additional info: Abd pain TECHNIQUE: Imaging protocol: Computed tomography of the abdomen and pelvis with contrast. Radiation optimization: All CT scans at this facility use at least one of these dose optimization techniques: automated exposure control; mA and/or kV adjustment per patient size (includes targeted exams where dose is matched to clinical indication); or iterative reconstruction. Contrast material: ISOVUE 370; Contrast volume: 100 ml; Contrast route: INTRAVENOUS (IV); COMPARISON: CT ABD PELVIS WITH CONTRAST 03/08/2020 2:37 PM FINDINGS: Lungs: Minimal bilateral lower lobe dependent atelectasis. Mediastinal space: Minimal hiatal hernia. Liver: Normal. No mass. Gallbladder and bile ducts: Normal. No calcified stones. No ductal dilation. Pancreas: Normal. No ductal dilation. Spleen: Normal. No splenomegaly. Adrenal glands: Normal. No mass. Kidneys and ureters: There is a left renal cyst measuring up to 11 mm which is redemonstrated and unchanged from the prior study. Stomach and bowel: Moderate stool throughout much of the colon. Mildly elongated sigmoid colon. Appendix: There are no changes of appendicitis. A normal appendix is not seen. Intraperitoneal space: Unremarkable. No free air. No significant fluid collection. Vasculature: There is mild calcification of the abdominal aorta with extension into the iliac arteries. Lymph nodes: Unremarkable. No enlarged lymph nodes. Urinary bladder: Unremarkable as visualized. Reproductive: Unremarkable as visualized. Bones/joints: Unremarkable. No acute fracture. Soft tissues: Minimal fat filled left inguinal hernia. IMPRESSION: 1. Resolution of right pleural effusion and right lower lobe atelectasis since 03/08/2020. 2. Minimal hiatal hernia. 3. Otherwise negative CT abdomen/pelvis. Electronically signed by: Jorge Pittman On 09/25/2020 23:00:41 PM
[2020-09-25 23:45] VITALS: BP 161/85
[2020-09-26] MEDS ORDERED: BACL10TA2 PO (00:24)
[2020-09-26] MEDS ORDERED: MILKSUS3 PO (00:24)
[2020-09-26] MEDS ORDERED: PHEN32.44 PO (00:24)
[2020-09-26] MEDS ORDERED: LEVE15SO PO (00:24)
[2020-09-26] MEDS ORDERED: FERR1TAB8 PO (00:24)
[2020-09-26] MEDS ORDERED: LORA-674 PO (00:24)
[2020-09-26] MEDS ORDERED: AMLO2.5T3 PO (00:24)
[2020-09-26] MEDS ORDERED: BISA10SU20 PR (00:24)
[2020-09-26] MEDS ORDERED: SENN8.6T28 PO (00:24)
[2020-09-26] MEDS ORDERED: DILA100C PO ×2 (00:24)
[2020-09-26] MEDS ORDERED: FLEEENE12 PR (00:24)
[2020-09-26] MEDS ORDERED: MIRA1POW3 PO (00:24)
[2020-09-26] MEDS ORDERED: HOME MED LIST COMPLETE! XX SCH (00:25)
--- NOTE | 2020-09-26 07:22 | ECGEPIP ---
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
== END 2020-09-26 00:40 | disposition home or self-care (01) ==
LOC: M ED 19:24 → EDBD 19:24 → M ED 09-26 00:40
DX: R11.10 Vomiting, unspecified (principal); I10 Essential (primary) hypertension; Z79.82 Long term (current) use of aspirin; Z79.899 Other long term (current) drug therapy
CPT/HCPCS: 36415; 74177; 80047; 80076; 82550; 82553; 83690; 84484; 85025; 85610; 85730; 93005; 93041; 99285; Q9967

== ENCOUNTER → 2020-10-10 | Outpatient (CLI) | payer MEDICARE, MEDICAID ==
[~2020-10-10] MED LIST changes: +BISA10SU20 PR; +FERR1TAB8 PO; +FLEEENE12 PR; +LEVE15SO PO; +LORA-674 PO; +MILKSUS3 PO; +MIRA1POW3 PO; +SENN8.6T28 PO
--- NOTE | 2020-10-10 10:09 | DEXAMM ---
INDICATION: M81.0 OSTEOPOROSIS. COMPARISON: Most recent comparison study is from June 22, 2018. The most remote is dated February 20, 2010. TECHNIQUE: Bone density was measured using dual-energy x-ray absorptionmetry (DEXA). FINDINGS: AP SPINE L1-L4 BMD 1.142 g/cm2 Young Adult T-Score -0.4 Age Matched Z-Score 4-0.4. LT FEMUR, TOTAL BMD 0.853 g/cm2 Young Adult T-Score -1.2 Age Matched Z-Score -1.3. LT NECK BMD 0.752 g/cm2 Young Adult T-Score -2.1 Age Matched Z-Score -1.6. RT FEMUR, TOTAL BMD 0.828 g/cm2 Young Adult T-Score -1.4 Age Matched Z-Score -1.5. RT NECK BMD 0.942 g/cm2 Young Adult T-Score -0.7 Age Matched Z-Score -0.1. IMPRESSION: There is normal bone density of the spine. There is low bone density of the left hip. There is low bone density of the right hip. The density of the spine has increased 9.7% since the initial exam on February 20, 2010. The density of the spine increased 1.1% since most recent exam on June 22, 2018. The density of the left hip has increased 21.3% since initial exam on February 20, 2010. The density of the left hip has increased 2.3% since most recent exam on June 22, 2018. The density of the right hip has increased 12.8% since the initial exam on February 20, 2010. The density of the right hip has decreased 1.9% since the most recent exam on June 22, 2018. FOLLOW-UP: Recommendation for the next bone density exam: 2 years. <Electronically signed by Jarrell Glynn > 10/10/20 [id number]
== END ==
LOC: M WHC 08:55
PROVIDERS: ATTEND Family Medicine
DX: M81.0 Age-related osteoporosis without current pathological fracture (principal)

== ENCOUNTER → 2020-10-17 | Outpatient (CLI) | payer MEDICARE, MEDICAID ==
[2020-10-17 16:58] LABS: BASO % 0.5 % (0.0-1.0); EOS # 0.1 10^3/uL (0.0-0.5); EOS % 1.3 % (0.0-3.0); HEMATOCRIT 39.9 % (42.0-52.0); HEMOGLOBIN 12.7 g/dl (13.5-17.5); LYMPH # 1.6 10^3/uL (1.5-5.0); LYMPH % 24.3 % (24.0-44.0); MEAN CORPUSCULAR HGB CONC 31.8 g/dl (32.0-36.5); MEAN CORPUSCULAR VOLUME 81.6 fl (80.0-96.0); MONO # 1.2 10^3/uL (0.0-0.8); NEUTROPHILS # 3.6 10^3/uL (1.5-8.5); NEUTROPHILS % 55.7 % (36.0-66.0); PLATELET COUNT, AUTOMATED 252 10^3/uL (150-450); RED BLOOD COUNT 4.89 10^6/uL (4.30-6.10); WHITE BLOOD COUNT 6.4 10^3/uL (4.0-10.0)
[2020-10-17 21:02] LABS: BLOOD UREA NITROGEN 12 MG/DL (7-18); CHLORIDE LEVEL 102 MEQ/L (98-107); CREATININE FOR GFR 0.55 MG/DL (0.70-1.30); GLOMERULAR FILTRATION RATE > 60.0 (>56); GLUCOSE, FASTING 78 MG/DL (70-100); POTASSIUM SERUM 4.2 MEQ/L (3.5-5.1); SODIUM LEVEL 137 MEQ/L (136-145)
[2020-10-17 21:03] LABS: ALT/SGPT 28 IU/L (0-32); BILIRUBIN,TOTAL 0.2 MG/DL (0.2-1.0); CALCIUM LEVEL 8.8 MG/DL (8.5-10.1); CARBON DIOXIDE LEVEL 30 mmol/L (20-29); TOTAL PROTEIN 7.9 GM/DL (6.4-8.2)
[2020-10-17 21:04] LABS: ALBUMIN 3.8 GM/DL (3.2-5.2)
[2020-10-17 21:48] LABS: STABLE ALKPHOS 76 U/L
[2020-10-17 21:49] LABS: % LABILE ALKALINE PHOSPHATASE 44.5 %; LABILE ALKPHOS 61 U/L
== END ==
LOC: M PLALAB 11:52
PROVIDERS: ATTEND Physician Assistant Medical
DX: R10.84 Generalized abdominal pain (principal)
CPT/HCPCS: 36415; 80053; 84078; 85025; G0463

== ENCOUNTER → 2020-11-22 | Outpatient (CLI) | payer MEDICARE, MEDICAID ==
[2020-11-22 12:08] LABS: BASO % 0.5 % (0.0-1.0); EOS # 0.1 10^3/uL (0.0-0.5); EOS % 0.9 % (0.0-3.0); HEMATOCRIT 43.3 % (42.0-52.0); HEMOGLOBIN 13.8 g/dl (13.5-17.5); LYMPH # 1.8 10^3/uL (1.5-5.0); LYMPH % 28.7 % (24.0-44.0); MEAN CORPUSCULAR HEMOGLOBIN 26.3 pg (27.0-33.0); MEAN CORPUSCULAR HGB CONC 31.9 g/dl (32.0-36.5); MEAN CORPUSCULAR VOLUME 82.6 fl (80.0-96.0); MONO # 0.9 10^3/uL (0.0-0.8); NEUTROPHILS # 3.6 10^3/uL (1.5-8.5); NEUTROPHILS % 55.7 % (36.0-66.0); PLATELET COUNT, AUTOMATED 311 10^3/uL (150-450); RED BLOOD COUNT 5.24 10^6/uL (4.30-6.10); WHITE BLOOD COUNT 6.4 10^3/uL (4.0-10.0)
[2020-11-22 14:13] LABS: PHENOBARBITAL LEVEL 38.2 UG/ML (15.0-40.0); PHENYTOIN (DILANTIN) 35.1 UG/ML (10.0-20.0); PTH INTACT 46.6 PG/ML (18.5-88.0); TOTAL 25(OH) VITAMIN D 55.8 NG/ML (30.0-100.0)
== END ==
LOC: M LAB 09:22
PROVIDERS: ATTEND Family Medicine
DX: G40.909 Epilepsy, unspecified, not intractable, without status epilepticus (principal); D50.9 Iron deficiency anemia, unspecified; E55.9 Vitamin D deficiency, unspecified; A04.8 Other specified bacterial intestinal infections; Z79.899 Other long term (current) drug therapy

== ENCOUNTER → 2020-11-22 | Outpatient (CLI) | payer MEDICARE, MEDICAID ==
[2020-11-22 12:08] LABS: BASO % 0.3 % (0.0-1.0); EOS # 0.1 10^3/uL (0.0-0.5); EOS % 0.9 % (0.0-3.0); HEMOGLOBIN 13.8 g/dl (13.5-17.5); LYMPH # 1.7 10^3/uL (1.5-5.0); LYMPH % 27.4 % (24.0-44.0); MEAN CORPUSCULAR HEMOGLOBIN 26.4 pg (27.0-33.0); MEAN CORPUSCULAR HGB CONC 32.1 g/dl (32.0-36.5); MEAN CORPUSCULAR VOLUME 82.2 fl (80.0-96.0); MONO # 0.9 10^3/uL (0.0-0.8); MONO % 14.7 % (2.0-8.0); NEUTROPHILS # 3.6 10^3/uL (1.5-8.5); NEUTROPHILS % 56.5 % (36.0-66.0); PLATELET COUNT, AUTOMATED 292 10^3/uL (150-450); RED BLOOD COUNT 5.23 10^6/uL (4.30-6.10); WHITE BLOOD COUNT 6.3 10^3/uL (4.0-10.0)
[2020-11-22 13:56] LABS: ALBUMIN 3.9 GM/DL (3.2-5.2); ALT/SGPT 27 U/L (12-78); BILIRUBIN,TOTAL 0.2 MG/DL (0.2-1.0); BLOOD UREA NITROGEN 11 MG/DL (7-18); CALCIUM LEVEL 9.2 MG/DL (8.5-10.1); CARBON DIOXIDE LEVEL 34 MEQ/L (21-32); CHLORIDE LEVEL 100 MEQ/L (98-107); CREATININE FOR GFR 0.63 MG/DL (0.70-1.30); GLOMERULAR FILTRATION RATE > 60.0 (>56); GLUCOSE, FASTING 97 MG/DL (70-100); PHENOBARBITAL LEVEL 36.9 UG/ML (15.0-40.0); PHENYTOIN (DILANTIN) 39.9 UG/ML (10.0-20.0); POTASSIUM SERUM 4.2 MEQ/L (3.5-5.1); SODIUM LEVEL 139 MEQ/L (136-145); TOTAL PROTEIN 8.3 GM/DL (6.4-8.2)
== END ==
LOC: M LAB 09:25
PROVIDERS: ATTEND Physician Assistant Medical
DX: G40.909 Epilepsy, unspecified, not intractable, without status epilepticus (principal); Z79.899 Other long term (current) drug therapy

== ENCOUNTER → 2020-11-24 | Outpatient (REF) | payer MEDICARE, MEDICAID | LOC: M LAB REF 15:40 | PROVIDERS: ATTEND Family Medicine | DX: A04.8 Other specified bacterial intestinal infections (principal) ==

== ENCOUNTER → 2020-12-05 | Outpatient (CLI) | payer MEDICARE, MEDICAID | LOC: M LAB 08:51 | PROVIDERS: ATTEND Physician Assistant Medical | DX: G40.909 Epilepsy, unspecified, not intractable, without status epilepticus (principal) ==

== ENCOUNTER 2020-12-19 13:46 | Outpatient (CLI) | payer MEDICARE, MEDICAID ==
[~2020-12-19 13:46] MED LIST changes: +ZOLEDRONIC ACID 5 MG in IV 1 EA IV ONE
== END 2020-12-19 15:10 | disposition home or self-care (01) ==
LOC: M INFU 13:46
PROVIDERS: ATTEND Family Medicine
DX: M81.0 Age-related osteoporosis without current pathological fracture (principal); R56.9 Unspecified convulsions
CPT/HCPCS: 36592; 80185; 96365; J3489

== ENCOUNTER → 2020-12-19 | Outpatient (CLI) | payer MEDICARE, MEDICAID | LOC: M LAB 13:52 | PROVIDERS: ATTEND Physician Assistant Medical | DX: R56.9 Unspecified convulsions (principal) ==

== ENCOUNTER → 2020-12-28 | Outpatient (CLI) | payer MEDICARE, MEDICAID ==
[~2020-12-28] MED LIST changes: -ZOLEDRONIC ACID 5 MG in IV 1 EA IV ONE
== END ==
LOC: M LAB 08:11
PROVIDERS: ATTEND Physician Assistant Medical
DX: G40.909 Epilepsy, unspecified, not intractable, without status epilepticus (principal)

== ENCOUNTER → 2021-01-03 | Outpatient (CLI) | payer MEDICARE, MEDICAID ==
[2021-01-03 17:08] LABS: BASO % 0.3 % (0.0-1.0); EOS # 0.1 10^3/uL (0.0-0.5); EOS % 0.9 % (0.0-3.0); LYMPH # 1.7 10^3/uL (1.5-5.0); MEAN CORPUSCULAR HEMOGLOBIN 27.9 pg (27.0-33.0); MEAN CORPUSCULAR HGB CONC 32.6 g/dl (32.0-36.5); MEAN CORPUSCULAR VOLUME 85.8 fl (80.0-96.0); MONO % 14.6 % (2.0-8.0); NEUTROPHILS # 4.2 10^3/uL (1.5-8.5); NEUTROPHILS % 59.9 % (36.0-66.0); PLATELET COUNT, AUTOMATED 294 10^3/uL (150-450); RED BLOOD COUNT 5.01 10^6/uL (4.30-6.10)
[2021-01-03 17:29] LABS: ALBUMIN 3.9 GM/DL (3.2-5.2); ALT/SGPT 34 U/L (12-78); BILIRUBIN,TOTAL 0.2 MG/DL (0.2-1.0); BLOOD UREA NITROGEN 8 MG/DL (7-18); CALCIUM LEVEL 9.2 MG/DL (8.5-10.1); CARBON DIOXIDE LEVEL 29 MEQ/L (21-32); CHLORIDE LEVEL 100 MEQ/L (98-107); CREATININE FOR GFR 0.56 MG/DL (0.70-1.30); GLOMERULAR FILTRATION RATE > 60.0 (>56); GLUCOSE, FASTING 85 MG/DL (70-100); PHENOBARBITAL LEVEL 27.5 UG/ML (15.0-40.0); PHENYTOIN (DILANTIN) 16.5 UG/ML (10.0-20.0); POTASSIUM SERUM 4.6 MEQ/L (3.5-5.1); SODIUM LEVEL 135 MEQ/L (136-145)
== END ==
LOC: M PLALAB 14:03
PROVIDERS: ATTEND Family Medicine
DX: G40.909 Epilepsy, unspecified, not intractable, without status epilepticus (principal)
CPT/HCPCS: 36415; 80053; 80184; 80185; 85025; G0463

== ENCOUNTER → 2021-04-02 | Outpatient (CLI) | payer MEDICARE, MEDICAID ==
[~2021-04-02] MED LIST changes: -MONT10TA10 PO; +MONT10TA97 PO
[2021-04-02 12:25] LABS: PHENOBARBITAL LEVEL 32.8 UG/ML (15.0-40.0); PHENYTOIN (DILANTIN) 38.5 UG/ML (10.0-20.0)
== END ==
LOC: M LAB 08:55
PROVIDERS: ATTEND Physician Assistant Medical
DX: G40.89 Other seizures (principal)

== ENCOUNTER → 2021-04-17 | Outpatient (CLI) | payer MEDICARE, MEDICAID ==
[~2021-04-17] MED LIST changes: -PHEN50CH PO; +PHEN50CH2 PO
== END ==
LOC: M LAB 08:23
PROVIDERS: ATTEND Physician Assistant Medical
DX: R56.9 Unspecified convulsions (principal)

== ENCOUNTER → 2021-05-16 | Outpatient (CLI) | payer MEDICARE, MEDICAID ==
[2021-05-16 16:08] LABS: BASO % 0.3 % (0.0-1.0); EOS % 0.6 % (0.0-3.0); HEMATOCRIT 45.5 % (42.0-52.0); LYMPH # 1.9 10^3/uL (1.5-5.0); LYMPH % 27.5 % (24.0-44.0); MEAN CORPUSCULAR HEMOGLOBIN 28.9 pg (27.0-33.0); MEAN CORPUSCULAR VOLUME 87.7 fl (80.0-96.0); MONO # 0.7 10^3/uL (0.0-0.8); MONO % 10.4 % (2.0-8.0); NEUTROPHILS # 4.2 10^3/uL (1.5-8.5); NEUTROPHILS % 60.9 % (36.0-66.0); PLATELET COUNT, AUTOMATED 214 10^3/uL (150-450); RED BLOOD COUNT 5.19 10^6/uL (4.30-6.10); WHITE BLOOD COUNT 6.9 10^3/uL (4.0-10.0)
[2021-05-16 16:24] LABS: FERRITIN 64 NG/ML (26-388); IRON (FE) 143 UG/DL (65-175)
== END ==
LOC: M WUC 11:55
PROVIDERS: ATTEND Physician Assistant Medical
DX: D50.9 Iron deficiency anemia, unspecified (principal)

== ENCOUNTER → 2021-06-19 | Outpatient (CLI) | payer MEDICARE, MEDICAID | LOC: M LABSMTC 09:54 | PROVIDERS: ATTEND Emergency Medicine | DX: Z20.822 Contact with and (suspected) exposure to COVID-19 (principal) | CPT/HCPCS: 87426; C9803 ==

== ENCOUNTER 2021-06-30 07:39 | Emergency (ER) | payer MEDICARE, MEDICAID ==
[~2021-06-30] VITALS: Ht 152.4 cm; Wt 66.9 kg
[2021-06-30] MEDS ORDERED: PHENYTOIN 100 MG/2 ML VIAL (J1165) IV ONE (08:00)
[2021-06-30] MEDS ORDERED: PHENobarbital 65MG/ML 1ML VIAL IV ONE (08:00)
[2021-06-30] MEDS ORDERED: levETIRAcetam INJection 1,000 MG in D5W 100 ML IV ONE (08:00)
[2021-06-30 08:43] LABS: PHENOBARBITAL LEVEL 28.4 UG/ML (15.0-40.0); PHENYTOIN (DILANTIN) 19.4 UG/ML (10.0-20.0)
[2021-06-30] MEDS ORDERED: PHENYTOIN INJ 250 MG/5 ML VIAL (J1165) IV ONE (08:50)
[2021-06-30] MEDS ORDERED: LEVE15SO PO (09:49)
[2021-06-30 11:09] VITALS: BP 121/65
[2021-06-30] MEDS ORDERED: KEPP1SOL PO (18:31)
[2021-06-30] MEDS ORDERED: TAB-TAB3 PO (18:36)
== END 2021-06-30 11:11 | disposition home or self-care (01) ==
LOC: M ED 07:39 → EDBD 07:39 → M ED 11:11
DX: G40.309 Generalized idiopathic epilepsy and epileptic syndromes, not intractable, without status epilepticus (principal); H54.8 Legal blindness, as defined in USA; Z79.899 Other long term (current) drug therapy; Z86.73 Personal history of transient ischemic attack (TIA), and cerebral infarction without residual deficits; Z86.16 Personal history of COVID-19
CPT/HCPCS: 80180; 80184; 80185; 96365; 96375; 99284; J1165; J1953; J2560

== ENCOUNTER → 2021-11-13 | Outpatient (CLI) | payer MEDICARE, MEDICAID ==
[~2021-11-13] MED LIST changes: +KEPP1SOL PO; +LEVE15SO2 PO; +LEVO1TAB40 PO; -LEVO750T13 PO; +PANT40TA29 PO; +RISATAB3 PO; +TAB-TAB3 PO
[2021-11-13 09:14] LABS: BASO % 0.3 % (0.0-1.0); EOS # 0.1 10^3/uL (0.0-0.5); EOS % 1.5 % (0.0-3.0); HEMATOCRIT 47.9 % (42.0-52.0); HEMOGLOBIN 15.7 g/dl (13.5-17.5); LYMPH # 1.9 10^3/uL (1.5-5.0); LYMPH % 28.9 % (24.0-44.0); MEAN CORPUSCULAR HEMOGLOBIN 30.4 pg (27.0-33.0); MEAN CORPUSCULAR HGB CONC 32.8 g/dl (32.0-36.5); MEAN CORPUSCULAR VOLUME 92.8 fl (80.0-96.0); MONO % 14.8 % (2.0-8.0); NEUTROPHILS # 3.5 10^3/uL (1.5-8.5); PLATELET COUNT, AUTOMATED 264 10^3/uL (150-450); RED BLOOD COUNT 5.16 10^6/uL (4.30-6.10); WHITE BLOOD COUNT 6.6 10^3/uL (4.0-10.0)
[2021-11-13 10:03] LABS: ALBUMIN 4.1 GM/DL (3.2-5.2); ALT/SGPT 37 U/L (12-78); BILIRUBIN,TOTAL 0.2 MG/DL (0.2-1.0); BLOOD UREA NITROGEN 13 MG/DL (7-18); CARBON DIOXIDE LEVEL 30 MEQ/L (21-32); CHLORIDE LEVEL 98 MEQ/L (98-107); CHOLESTEROL LEVEL 146 MG/DL (<200); CHOLESTEROL RISK RATIO 2.862 (<5); CREATININE FOR GFR 0.65 MG/DL (0.70-1.30); FERRITIN 20 NG/ML (26-388); GLOMERULAR FILTRATION RATE > 60.0 (>56); GLUCOSE, FASTING 86 MG/DL (70-100); HDL CHOLESTEROL 51 MG/DL (>40); LDL CHOLESTEROL 69 MG/DL (<100); NON-HDL-C 95 MG/DL; PHENYTOIN (DILANTIN) 17.6 UG/ML (10.0-20.0); POTASSIUM SERUM 4.4 MEQ/L (3.5-5.1); SODIUM LEVEL 134 MEQ/L (136-145); TOTAL PROTEIN 8.5 GM/DL (6.4-8.2); TRIGLYCERIDES LEVEL 128 MG/DL (<150)
== END ==
LOC: M LAB 08:30
PROVIDERS: ATTEND Family Medicine
DX: G40.909 Epilepsy, unspecified, not intractable, without status epilepticus (principal); E78.00 Pure hypercholesterolemia, unspecified; D50.9 Iron deficiency anemia, unspecified; Z12.5 Encounter for screening for malignant neoplasm of prostate
CPT/HCPCS: 36415; 80053; 80061; 80180; 80184; 80185; 82728; 84439; 84443; 85025; 85046; G0103

== ENCOUNTER → 2022-02-04 | Outpatient (CLI) | payer MEDICARE, MEDICAID ==
[2022-02-04 10:01] LABS: HEMATOCRIT 46.9 % (42.0-52.0); HEMOGLOBIN 15.7 g/dl (13.5-17.5); MEAN CORPUSCULAR HEMOGLOBIN 30.3 pg (27.0-33.0); MEAN CORPUSCULAR HGB CONC 33.5 g/dl (32.0-36.5); MEAN CORPUSCULAR VOLUME 90.4 fl (80.0-96.0); PLATELET COUNT, AUTOMATED 237 10^3/uL (150-450); RED BLOOD COUNT 5.19 10^6/uL (4.30-6.10); WHITE BLOOD COUNT 9.1 10^3/uL (4.0-10.0)
[2022-02-04 10:32] LABS: PHENYTOIN (DILANTIN) 13.7 UG/ML (10.0-20.0)
[2022-02-04 10:36] LABS: ALBUMIN 3.9 G/DL (3.2-5.2); ALKALINE PHOSPHATASE 117 U/L (46-116); ALT/SGPT 28 U/L (7.0-40); AST/SGOT 21 U/L (<34); BILIRUBIN,TOTAL 0.3 MG/DL (0.3-1.2); BLOOD UREA NITROGEN 12 MG/DL (9-23); CARBON DIOXIDE LEVEL 26 MMOL/L (20-31); CHLORIDE LEVEL 94 MMOL/L (98-107); CREATININE FOR GFR 0.57 MG/DL (0.70-1.30); GLOMERULAR FILTRATION RATE > 60.0 (>56); GLUCOSE, FASTING 85 MG/DL (60-100); POTASSIUM SERUM 4.6 MMOL/L (3.5-5.1); SODIUM LEVEL 132 MMOL/L (136-145); TOTAL PROTEIN 7.9 G/DL (5.7-8.2)
[2022-02-04 11:17] LABS: PHENOBARBITAL LEVEL 20.8 UG/ML (15.0-40.0)
[2022-02-04 12:18] LABS: ATYPICAL LYMPH 3 % (0-5); LYMPHOCYTES 7 % (16-44); MONOCYTES 19 % (0-5); NEUTROPHILS 71 % (28-66); PLATELET ESTIMATE NORMAL (NORMAL)
== END ==
LOC: M WUC 08:38
PROVIDERS: ATTEND Psychiatry & Neurology Neurology
DX: G40.89 Other seizures (principal)

== ENCOUNTER 2022-02-24 10:14 | Outpatient (CLI) | payer MEDICARE, MEDICAID ==
[~2022-02-24 10:14] MED LIST changes: +ZOLEDRONIC ACID 5 MG in IV 1 EA IV ONE
== END 2022-02-24 11:15 | disposition home or self-care (01) ==
LOC: M INFU 10:14
PROVIDERS: ATTEND Family Medicine
DX: M81.0 Age-related osteoporosis without current pathological fracture (principal)

== ENCOUNTER → 2022-03-17 | Outpatient (CLI) | payer MEDICARE, MEDICAID ==
[~2022-03-17] MED LIST changes: -ZOLEDRONIC ACID 5 MG in IV 1 EA IV ONE
== END ==
LOC: M LABSMTC 10:35
DX: Z01.812 Encounter for preprocedural laboratory examination (principal); Z11.52 Encounter for screening for COVID-19

== ENCOUNTER → 2022-03-19 | Outpatient (CLI) | payer MEDICARE, MEDICAID ==
[2022-03-19 10:12] LABS: BASO % 0.5 % (0.0-1.0); EOS # 0.1 10^3/uL (0.0-0.5); EOS % 1.4 % (0.0-3.0); HEMATOCRIT 45.2 % (42.0-52.0); HEMOGLOBIN 15.1 g/dl (13.5-17.5); LYMPH # 2.2 10^3/uL (1.5-5.0); LYMPH % 33.6 % (24.0-44.0); MEAN CORPUSCULAR HEMOGLOBIN 30.6 pg (27.0-33.0); MEAN CORPUSCULAR HGB CONC 33.4 g/dl (32.0-36.5); MEAN CORPUSCULAR VOLUME 91.7 fl (80.0-96.0); MONO # 1.1 10^3/uL (0.0-0.8); MONO % 17.2 % (2.0-8.0); NEUTROPHILS % 46.8 % (36.0-66.0); PLATELET COUNT, AUTOMATED 268 10^3/uL (150-450); RED BLOOD COUNT 4.93 10^6/uL (4.30-6.10); WHITE BLOOD COUNT 6.5 10^3/uL (4.0-10.0)
[2022-03-19 10:29] LABS: INR 0.96
[2022-03-19 10:34] LABS: PHENYTOIN (DILANTIN) 25.2 UG/ML (10.0-20.0)
[2022-03-19 10:35] LABS: PHENOBARBITAL LEVEL 31.1 UG/ML (15.0-40.0)
[2022-03-19 10:36] LABS: FERRITIN 31.8 NG/ML (10.5-307.3)
[2022-03-19 10:37] LABS: ALBUMIN 3.8 G/DL (3.2-5.2); ALKALINE PHOSPHATASE 115 U/L (46-116); ALT/SGPT 36 U/L (7.0-40); AST/SGOT 19 U/L (<34); BILIRUBIN,TOTAL 0.3 MG/DL (0.3-1.2); BLOOD UREA NITROGEN 12 MG/DL (9-23); CALCIUM LEVEL 8.4 MG/DL (8.5-10.1); CARBON DIOXIDE LEVEL 27 MMOL/L (20-31); CHLORIDE LEVEL 98 MMOL/L (98-107); CREATININE FOR GFR 0.45 MG/DL (0.70-1.30); GLOMERULAR FILTRATION RATE > 60.0 (>56); GLUCOSE, FASTING 79 MG/DL (60-100); POTASSIUM SERUM 4.4 MMOL/L (3.5-5.1); SODIUM LEVEL 133 MMOL/L (136-145); TOTAL PROTEIN 7.5 G/DL (5.7-8.2); VITAMIN B12 LEVEL 437 PG/ML (211-911)
== END ==
LOC: M WUC 08:23
PROVIDERS: ATTEND Family Medicine
DX: G40.909 Epilepsy, unspecified, not intractable, without status epilepticus (principal); D50.9 Iron deficiency anemia, unspecified

== ENCOUNTER → 2022-06-19 | Outpatient (CLI) | payer MEDICARE, MEDICAID ==
[~2022-06-19] MED LIST changes: -SENN-111 PO; +SENN-188 PO
== END ==
LOC: M PLALAB 12:06
PROVIDERS: ATTEND Psychiatry & Neurology Neurology
DX: R56.9 Unspecified convulsions (principal); Z51.81 Encounter for therapeutic drug level monitoring; Z79.899 Other long term (current) drug therapy

== ENCOUNTER → 2022-06-27 | Outpatient (CLI) | payer MEDICARE, MEDICAID ==
[2022-06-27 10:56] LABS: BASO % 0.4 % (0.0-1.0); EOS # 0.1 10^3/uL (0.0-0.5); EOS % 1.5 % (0.0-3.0); HEMATOCRIT 47.2 % (42.0-52.0); LYMPH # 2.8 10^3/uL (1.5-5.0); LYMPH % 29.6 % (24.0-44.0); MEAN CORPUSCULAR HEMOGLOBIN 30.8 pg (27.0-33.0); MEAN CORPUSCULAR HGB CONC 33.9 g/dl (32.0-36.5); MEAN CORPUSCULAR VOLUME 90.9 fl (80.0-96.0); MONO # 1.4 10^3/uL (0.0-0.8); MONO % 15.1 % (2.0-8.0); PLATELET COUNT, AUTOMATED 336 10^3/uL (150-450); RED BLOOD COUNT 5.19 10^6/uL (4.30-6.10); WHITE BLOOD COUNT 9.5 10^3/uL (4.0-10.0)
[2022-06-27 11:03] LABS: ALBUMIN 4.2 G/DL (3.2-5.2); ALKALINE PHOSPHATASE 126 U/L (46-116); ALT/SGPT 35 U/L (7.0-40); AST/SGOT 14 U/L (<34); BILIRUBIN,TOTAL 0.2 MG/DL (0.3-1.2); BLOOD UREA NITROGEN 14 MG/DL (9-23); CALCIUM LEVEL 8.4 MG/DL (8.5-10.1); CARBON DIOXIDE LEVEL 29 MMOL/L (20-31); CHLORIDE LEVEL 98 MMOL/L (98-107); CHOLESTEROL LEVEL 133 MG/DL (<200); CHOLESTEROL RISK RATIO 3.59 (<5); GLOMERULAR FILTRATION RATE > 60.0 (>56); GLUCOSE, FASTING 85 MG/DL (60-100); LDL CHOLESTEROL 63.6 MG/DL (<100); POTASSIUM SERUM 4.5 MMOL/L (3.5-5.1); PTH INTACT 48.1 PG/ML (18.5-88.0); SODIUM LEVEL 135 MMOL/L (136-145); TOTAL PROTEIN 7.9 G/DL (5.7-8.2); TRIGLYCERIDES LEVEL 162 MG/DL (<150)
[2022-06-27 11:05] LABS: THYROID STIMULATING HORMONE 1.663 uIU/ML (0.55-4.78)
[2022-06-27 11:06] LABS: FREE T4 1.02 NG/DL (0.89-1.76)
== END ==
LOC: M WUC 08:59
PROVIDERS: ATTEND Family Medicine
DX: E78.00 Pure hypercholesterolemia, unspecified (principal); Z12.5 Encounter for screening for malignant neoplasm of prostate; D50.9 Iron deficiency anemia, unspecified; Z79.899 Other long term (current) drug therapy
CPT/HCPCS: 36415; 80053; 80061; 82306; 83880; 83970; 84439; 84443; 85025; 85046; G0103

== ENCOUNTER → 2022-10-08 | Outpatient (CLI) | payer MEDICARE, MEDICAID ==
[2022-10-08 10:38] LABS: BASO % 0.3 % (0.0-1.0); EOS # 0.1 10^3/uL (0.0-0.5); EOS % 1.1 % (0.0-3.0); HEMATOCRIT 44.7 % (42.0-52.0); LYMPH # 2.3 10^3/uL (1.5-5.0); LYMPH % 26.8 % (24.0-44.0); MEAN CORPUSCULAR HEMOGLOBIN 30.5 pg (27.0-33.0); MEAN CORPUSCULAR HGB CONC 33.6 g/dl (32.0-36.5); MEAN CORPUSCULAR VOLUME 90.9 fl (80.0-96.0); MONO # 1.3 10^3/uL (0.0-0.8); MONO % 14.4 % (2.0-8.0); NEUTROPHILS % 57.1 % (36.0-66.0); PLATELET COUNT, AUTOMATED 293 10^3/uL (150-450); RED BLOOD COUNT 4.92 10^6/uL (4.30-6.10); WHITE BLOOD COUNT 8.7 10^3/uL (4.0-10.0)
[2022-10-08 11:10] LABS: ALBUMIN 3.8 G/DL (3.2-5.2); ALKALINE PHOSPHATASE 129 U/L (46-116); ALT/SGPT 21 U/L (7.0-40); AST/SGOT < 8 U/L (<34); BILIRUBIN,TOTAL 0.2 MG/DL (0.3-1.2); BLOOD UREA NITROGEN 13 MG/DL (9-23); CARBON DIOXIDE LEVEL 30 MMOL/L (20-31); CHLORIDE LEVEL 98 MMOL/L (98-107); CREATININE FOR GFR 0.55 MG/DL (0.70-1.30); GLOMERULAR FILTRATION RATE > 60.0 (>56); GLUCOSE, FASTING 74 MG/DL (60-100); POTASSIUM SERUM 4.5 MMOL/L (3.5-5.1); SODIUM LEVEL 136 MMOL/L (136-145); TOTAL PROTEIN 7.8 G/DL (5.7-8.2)
[2022-10-08 11:12] LABS: PHENOBARBITAL LEVEL 35.4 UG/ML (15.0-40.0); PHENYTOIN (DILANTIN) 25.4 UG/ML (10.0-20.0)
== END ==
LOC: M WUC 08:16
PROVIDERS: ATTEND Psychiatry & Neurology Neurology
DX: R56.9 Unspecified convulsions (principal)

== ENCOUNTER → 2022-11-24 | Outpatient (CLI) | payer MEDICARE, MEDICAID ==
[~2022-11-24] MED LIST changes: +LORA-1041 PO; -LORA-674 PO
== END ==
LOC: M WHC 11:00
PROVIDERS: ATTEND Family Medicine
DX: M81.0 Age-related osteoporosis without current pathological fracture (principal)

== ENCOUNTER → 2023-03-06 | Outpatient (CLI) | payer MEDICARE, MEDICAID ==
[2023-03-06 12:24] LABS: BASO % 0.2 % (0.0-1.0); EOS # 0.2 10^3/uL (0.0-0.5); EOS % 1.8 % (0.0-3.0); HEMATOCRIT 45.7 % (42.0-52.0); HEMOGLOBIN 15.3 g/dl (13.5-17.5); LYMPH # 2.3 10^3/uL (1.5-5.0); LYMPH % 26.9 % (24.0-44.0); MEAN CORPUSCULAR HEMOGLOBIN 30.2 pg (27.0-33.0); MEAN CORPUSCULAR HGB CONC 33.5 g/dl (32.0-36.5); MEAN CORPUSCULAR VOLUME 90.1 fl (80.0-96.0); MONO # 1.4 10^3/uL (0.0-0.8); MONO % 16.8 % (2.0-8.0); NEUTROPHILS # 4.6 10^3/uL (1.5-8.5); NEUTROPHILS % 53.9 % (36.0-66.0); PLATELET COUNT, AUTOMATED 213 10^3/uL (150-450); RED BLOOD COUNT 5.07 10^6/uL (4.30-6.10); WHITE BLOOD COUNT 8.4 10^3/uL (4.0-10.0)
[2023-03-06 12:46] LABS: ALKALINE PHOSPHATASE 135 U/L (46-116); ALT/SGPT 28 U/L (7.0-40); AST/SGOT < 8 U/L (<34); BILIRUBIN,TOTAL 0.2 MG/DL (0.3-1.2); BLOOD UREA NITROGEN 7 MG/DL (9-23); CALCIUM LEVEL 8.5 MG/DL (8.3-10.6); CARBON DIOXIDE LEVEL 31 MMOL/L (20-31); CHLORIDE LEVEL 98 MMOL/L (98-107); CREATININE FOR GFR 0.46 MG/DL (0.70-1.30); GLOMERULAR FILTRATION RATE > 60.0 (>49); GLUCOSE, FASTING 86 MG/DL (74-106); MAGNESIUM LEVEL 2.1 MG/DL (1.8-2.4); POTASSIUM SERUM 4.4 MMOL/L (3.5-5.1); SODIUM LEVEL 132 MMOL/L (136-145)
[2023-03-06 12:47] LABS: FERRITIN 68.9 NG/ML (10.5-307.3)
[2023-03-06 12:48] LABS: PHENOBARBITAL LEVEL 37.2 UG/ML (15.0-40.0); PHENYTOIN (DILANTIN) 22.5 UG/ML (10.0-20.0)
== END ==
LOC: M WUC 08:58
PROVIDERS: ATTEND Family Medicine
DX: D50.9 Iron deficiency anemia, unspecified (principal); G40.909 Epilepsy, unspecified, not intractable, without status epilepticus; I10 Essential (primary) hypertension

== ENCOUNTER 2023-03-19 12:36 | Outpatient (CLI) | payer MEDICARE, MEDICAID ==
[2023-03-19] MEDS ORDERED: ZOLEDRONIC ACID 5 MG in IV 1 EA IV ONE (13:00)
[2023-03-19 13:50] VITALS: BP 164/69; O2SAT 95
== END 2023-03-19 13:50 ==
LOC: M INFU 12:36
PROVIDERS: ATTEND Family Medicine
DX: M81.0 Age-related osteoporosis without current pathological fracture (principal)
CPT/HCPCS: 96413; J3489

== ENCOUNTER → 2023-03-27 | Outpatient (REF) | payer MEDICARE, MEDICAID | LOC: M SFHCPLAZ 16:36 | PROVIDERS: ATTEND Family Medicine | DX: D50.9 Iron deficiency anemia, unspecified (principal); G40.909 Epilepsy, unspecified, not intractable, without status epilepticus; E55.9 Vitamin D deficiency, unspecified ==

== ENCOUNTER → 2023-07-24 | Outpatient (CLI) | payer MEDICARE, MEDICAID ==
[~2023-07-24] MED LIST changes: -BISA10SU20 PR; +BISA10SU59 PR; -MIRA1POW3 PO; +MIRA33506 PO
[2023-07-24 12:03] LABS: BASO % 0.3 % (0.0-1.0); EOS # 0.1 10^3/uL (0.0-0.5); EOS % 0.8 % (0.0-3.0); HEMATOCRIT 45.3 % (42.0-52.0); HEMOGLOBIN 15.2 g/dl (13.5-17.5); LYMPH # 2.3 10^3/uL (1.5-5.0); LYMPH % 24.5 % (24.0-44.0); MEAN CORPUSCULAR HEMOGLOBIN 30.8 pg (27.0-33.0); MEAN CORPUSCULAR HGB CONC 33.6 g/dl (32.0-36.5); MEAN CORPUSCULAR VOLUME 91.9 fl (80.0-96.0); MONO # 1.5 10^3/uL (0.0-0.8); MONO % 16.4 % (2.0-8.0); NEUTROPHILS # 5.3 10^3/uL (1.5-8.5); NEUTROPHILS % 57.7 % (36.0-66.0); PLATELET COUNT, AUTOMATED 307 10^3/uL (150-450); RED BLOOD COUNT 4.93 10^6/uL (4.30-6.10); WHITE BLOOD COUNT 9.2 10^3/uL (4.0-10.0)
[2023-07-24 12:30] LABS: TOTAL 25(OH) VITAMIN D 41.1 NG/ML (20.0-100.0)
[2023-07-24 12:31] LABS: PHENOBARBITAL LEVEL 34.3 UG/ML (15.0-40.0); PHENYTOIN (DILANTIN) 22.9 UG/ML (10.0-20.0)
[2023-07-24 12:32] LABS: ALKALINE PHOSPHATASE 157 U/L (46-116); ALT/SGPT 33 U/L (7.0-40); AST/SGOT 10 U/L (<34); BILIRUBIN,TOTAL 0.2 MG/DL (0.3-1.2); BLOOD UREA NITROGEN 11 MG/DL (9-23); CALCIUM LEVEL 9.2 MG/DL (8.3-10.6); CARBON DIOXIDE LEVEL 31 MMOL/L (20-31); CHLORIDE LEVEL 98 MMOL/L (98-107); CREATININE FOR GFR 0.54 MG/DL (0.70-1.30); GLOMERULAR FILTRATION RATE > 60.0 (>49); GLUCOSE, FASTING 89 MG/DL (74-106); POTASSIUM SERUM 4.8 MMOL/L (3.5-5.1); SODIUM LEVEL 139 MMOL/L (136-145); TOTAL PROTEIN 7.8 G/DL (5.7-8.2)
[2023-07-24 15:36] LABS: PTH INTACT 67.6 PG/ML (18.5-88.0)
== END ==
LOC: M WUC 08:42
PROVIDERS: ATTEND Family Medicine
DX: E55.9 Vitamin D deficiency, unspecified (principal); G40.909 Epilepsy, unspecified, not intractable, without status epilepticus; D50.9 Iron deficiency anemia, unspecified

== ENCOUNTER → 2023-09-14 | Outpatient (CLI) | payer MEDICARE, MEDICAID ==
[2023-09-14 11:15] LABS: BASO % 0.2 % (0.0-1.0); EOS # 0.1 10^3/uL (0.0-0.5); HEMATOCRIT 43.8 % (42.0-52.0); HEMOGLOBIN 14.5 g/dl (13.5-17.5); LYMPH # 2.2 10^3/uL (1.5-5.0); LYMPH % 27.2 % (24.0-44.0); MEAN CORPUSCULAR HEMOGLOBIN 30.5 pg (27.0-33.0); MEAN CORPUSCULAR HGB CONC 33.1 g/dl (32.0-36.5); MEAN CORPUSCULAR VOLUME 92.2 fl (80.0-96.0); MONO # 1.2 10^3/uL (0.0-0.8); MONO % 14.3 % (2.0-8.0); NEUTROPHILS # 4.7 10^3/uL (1.5-8.5); NEUTROPHILS % 56.9 % (36.0-66.0); PLATELET COUNT, AUTOMATED 263 10^3/uL (150-450); RED BLOOD COUNT 4.75 10^6/uL (4.30-6.10); WHITE BLOOD COUNT 8.2 10^3/uL (4.0-10.0)
[2023-09-14 11:32] LABS: PHENOBARBITAL LEVEL 33.2 UG/ML (15.0-40.0); PHENYTOIN (DILANTIN) 23.2 UG/ML (10.0-20.0)
[2023-09-14 11:33] LABS: ALKALINE PHOSPHATASE 154 U/L (46-116); ALT/SGPT 25 U/L (7.0-40); AST/SGOT 11 U/L (<34); BILIRUBIN,TOTAL 0.2 MG/DL (0.3-1.2); BLOOD UREA NITROGEN 11 MG/DL (9-23); CALCIUM LEVEL 8.7 MG/DL (8.3-10.6); CARBON DIOXIDE LEVEL 32 MMOL/L (20-31); CHLORIDE LEVEL 100 MMOL/L (98-107); CREATININE FOR GFR 0.46 MG/DL (0.70-1.30); GLOMERULAR FILTRATION RATE > 60.0 (>49); GLUCOSE, FASTING 90 MG/DL (74-106); POTASSIUM SERUM 4.3 MMOL/L (3.5-5.1); SODIUM LEVEL 136 MMOL/L (136-145); TOTAL PROTEIN 7.6 G/DL (5.7-8.2)
== END ==
LOC: M WUC 08:28
PROVIDERS: ATTEND Psychiatry & Neurology Neurology
DX: R56.9 Unspecified convulsions (principal)

== ENCOUNTER → 2023-11-18 | Outpatient (CLI) | payer MEDICARE, MEDICAID ==
[2023-11-18 10:35] LABS: BASO % 0.4 % (0.0-1.0); EOS # 0.1 10^3/uL (0.0-0.5); EOS % 1.7 % (0.0-3.0); HEMATOCRIT 44.4 % (42.0-52.0); HEMOGLOBIN 14.7 g/dl (13.5-17.5); LYMPH # 1.7 10^3/uL (1.5-5.0); LYMPH % 32.5 % (24.0-44.0); MEAN CORPUSCULAR HEMOGLOBIN 30.1 pg (27.0-33.0); MEAN CORPUSCULAR HGB CONC 33.1 g/dl (32.0-36.5); MEAN CORPUSCULAR VOLUME 90.8 fl (80.0-96.0); MONO # 0.8 10^3/uL (0.0-0.8); MONO % 14.4 % (2.0-8.0); NEUTROPHILS # 2.6 10^3/uL (1.5-8.5); NEUTROPHILS % 50.8 % (36.0-66.0); PLATELET COUNT, AUTOMATED 181 10^3/uL (150-450); RED BLOOD COUNT 4.89 10^6/uL (4.30-6.10); WHITE BLOOD COUNT 5.2 10^3/uL (4.0-10.0)
[2023-11-18 11:07] LABS: ALBUMIN 3.8 G/DL (3.2-5.2); ALKALINE PHOSPHATASE 153 U/L (46-116); ALT/SGPT 21 U/L (7.0-40); AST/SGOT 9 U/L (<34); BILIRUBIN,TOTAL < 0.2 MG/DL (0.3-1.2); BLOOD UREA NITROGEN 13 MG/DL (9-23); CALCIUM LEVEL 8.7 MG/DL (8.3-10.6); CARBON DIOXIDE LEVEL 28 MMOL/L (20-31); CHLORIDE LEVEL 100 MMOL/L (98-107); CREATININE FOR GFR 0.49 MG/DL (0.70-1.30); GLOMERULAR FILTRATION RATE > 60.0 (>49); GLUCOSE, FASTING 77 MG/DL (74-106); POTASSIUM SERUM 4.5 MMOL/L (3.5-5.1); PSA SCREENING 0.93 NG/ML (< 4.00); SODIUM LEVEL 134 MMOL/L (136-145); TOTAL PROTEIN 7.7 G/DL (5.7-8.2)
[2023-11-18 11:09] LABS: FERRITIN 48.6 NG/ML (10.5-307.3)
[2023-11-18 11:11] LABS: PHENYTOIN (DILANTIN) 31.2 UG/ML (10.0-20.0)
[2023-11-18 11:16] LABS: PHENOBARBITAL LEVEL 41.5 UG/ML (15.0-40.0)
== END ==
LOC: M WUC 08:44
PROVIDERS: ATTEND Family Medicine
DX: D50.9 Iron deficiency anemia, unspecified (principal); G40.909 Epilepsy, unspecified, not intractable, without status epilepticus; Z12.5 Encounter for screening for malignant neoplasm of prostate
CPT/HCPCS: 36415; 80053; 80177; 80184; 80185; 82728; 85025; G0103

== ENCOUNTER → 2023-12-09 | Outpatient (CLI) | payer MEDICARE, MEDICAID ==
[2023-12-09 12:42] LABS: ALBUMIN 4.2 G/DL (3.2-5.2); ALKALINE PHOSPHATASE 189 U/L (46-116); ALT/SGPT 26 U/L (7.0-40); AST/SGOT 15 U/L (<34); BILIRUBIN,TOTAL 0.2 MG/DL (0.3-1.2); BLOOD UREA NITROGEN 16 MG/DL (9-23); CALCIUM LEVEL 9.6 MG/DL (8.3-10.6); CARBON DIOXIDE LEVEL 31 MMOL/L (20-31); CHLORIDE LEVEL 104 MMOL/L (98-107); CREATININE FOR GFR 0.59 MG/DL (0.70-1.30); GLOMERULAR FILTRATION RATE > 60.0 (>49); GLUCOSE, FASTING 92 MG/DL (74-106); POTASSIUM SERUM 3.9 MMOL/L (3.5-5.1); SODIUM LEVEL 141 MMOL/L (136-145); TOTAL PROTEIN 8.4 G/DL (5.7-8.2)
[2023-12-09 12:57] LABS: BASO % 0.2 % (0.0-1.0); EOS % 0.6 % (0.0-3.0); HEMOGLOBIN 14.9 g/dl (13.5-17.5); LYMPH # 1.7 10^3/uL (1.5-5.0); LYMPH % 25.9 % (24.0-44.0); MEAN CORPUSCULAR HEMOGLOBIN 29.9 pg (27.0-33.0); MEAN CORPUSCULAR HGB CONC 33.1 g/dl (32.0-36.5); MEAN CORPUSCULAR VOLUME 90.2 fl (80.0-96.0); MONO # 1.1 10^3/uL (0.0-0.8); MONO % 16.6 % (2.0-8.0); NEUTROPHILS # 3.8 10^3/uL (1.5-8.5); NEUTROPHILS % 56.5 % (36.0-66.0); PLATELET COUNT, AUTOMATED 225 10^3/uL (150-450); RED BLOOD COUNT 4.99 10^6/uL (4.30-6.10); WHITE BLOOD COUNT 6.6 10^3/uL (4.0-10.0)
[2023-12-09 13:07] LABS: PHENOBARBITAL LEVEL 47.4 UG/ML (15.0-40.0)
[2023-12-10 11:13] LABS: PHENYTOIN (DILANTIN) 35.9 UG/ML (10.0-20.0)
== END ==
LOC: M WUC 09:26
PROVIDERS: ATTEND Family Medicine
DX: G40.909 Epilepsy, unspecified, not intractable, without status epilepticus (principal)

== ENCOUNTER → 2023-12-21 | Outpatient (CLI) | payer MEDICARE, MEDICAID | LOC: M WUC 09:01 | PROVIDERS: ATTEND Family Medicine | DX: G40.909 Epilepsy, unspecified, not intractable, without status epilepticus (principal) ==

== ENCOUNTER 2023-12-30 10:28 | Inpatient (IN) | payer MEDICARE, MEDICAID ==
[~2023-12-30] VITALS: Ht 152.4 cm; Wt 67.6 kg
[2023-12-30] VITALS (27 sets, daily range): BP systolic 73–138; BP diastolic 40–97; TEMP 97.6–97.9; O2SAT 86–97
[2023-12-30 11:32] LABS: VENOUS BASE EXCESS 6.4 (-2.0-2.0); VENOUS HCO3 35.1 MMOL/L (23.0-27.0); VENOUS O2 SATURATION 66.1 % (60.0-80.0); VENOUS PARTIAL PRESSURE CO2 66.5 mmHg (38.0-50.0); VENOUS PARTIAL PRESSURE O2 33.9 mmHg (30.0-50.0); VENOUS STANDARD HCO3 29.2 MMOL/L; VENOUS TOTAL CO2 37.1 MMOL/L (24.0-28.0)
[2023-12-30 11:33] LABS: IONIZED CALCIUM 4.6 MG/DL (4.5-5.3)
[2023-12-30 11:37] LABS: BASO % 0.3 % (0.0-1.0); EOS % 0.1 % (0.0-3.0); HEMATOCRIT 48.8 % (42.0-52.0); HEMOGLOBIN 16.3 g/dl (13.5-17.5); LYMPH # 0.5 10^3/uL (1.5-5.0); LYMPH % 6.9 % (24.0-44.0); MEAN CORPUSCULAR HEMOGLOBIN 30.7 pg (27.0-33.0); MEAN CORPUSCULAR HGB CONC 33.4 g/dl (32.0-36.5); MEAN CORPUSCULAR VOLUME 91.9 fl (80.0-96.0); MONO # 0.2 10^3/uL (0.0-0.8); MONO % 2.9 % (2.0-8.0); NEUTROPHILS # 7.1 10^3/uL (1.5-8.5); NEUTROPHILS % 89.5 % (36.0-66.0); PLATELET COUNT, AUTOMATED 229 10^3/uL (150-450); RED BLOOD COUNT 5.31 10^6/uL (4.30-6.10); WHITE BLOOD COUNT 7.9 10^3/uL (4.0-10.0)
[2023-12-30] MEDS ORDERED: ASPI81CH33 PO (12:08)
[2023-12-30] MEDS ORDERED: OXYB-54 PO (12:08)
[2023-12-30] MEDS ORDERED: PHEN64.8 PO (12:08)
[2023-12-30] MEDS ORDERED: DESI13CR2 TOP (12:08)
[2023-12-30] MEDS ORDERED: COLA100C5 PO (12:08)
[2023-12-30] MEDS ORDERED: KEPP1SOL PO ×2 (12:08)
[2023-12-30 12:09] LABS: AMORPHOUS SEDIMENT LARGE (NEGATIVE); APPEARANCE, URINE CLOUDY (CLEAR); BACTERIA, URINE AUTO NEGATIVE (NEGATIVE); BILIRUBIN, URINE AUTO NEGATIVE (NEGATIVE); BLOOD, URINE BLOOD NEGATIVE (NEGATIVE); COLOR, URINE YELLOW (YELLOW); GLUCOSE, URINE (UA) AUTO NEGATIVE (NEGATIVE); KETONE, URINE AUTO NEGATIVE (NEGATIVE); LEUKOCYTE ESTERASE, URINE AUTO NEGATIVE (NEGATIVE); MUCUS, URINE SMALL (NEGATIVE); NITRITE, URINE AUTO NEGATIVE (NEGATIVE); PROTEIN, URINE AUTO NEGATIVE (NEGATIVE); RBC, URINE AUTO 0 /HPF (0-3); SPECIFIC GRAVITY URINE AUTO 1.011 (1.002-1.035); SQUAMOUS EPITHELIAL CELL UR AU 0 /HPF (0-6); UROBILINOGEN, URINE AUTO 0.2 mg/dL (0.0-2.0); WBC, URINE AUTO 0 /HPF (0-3)
[2023-12-30 12:10] LABS: ALBUMIN 4.1 G/DL (3.2-5.2); ALKALINE PHOSPHATASE 188 U/L (40-129); ALT/SGPT 27 U/L (7.0-40); AST/SGOT 16 U/L (<34); BILIRUBIN,DIRECT 0.1 MG/DL (<0.4); BILIRUBIN,TOTAL 0.3 MG/DL (0.3-1.2); BLOOD UREA NITROGEN 18 MG/DL (9-23); CALCIUM LEVEL 9.8 MG/DL (8.3-10.6); CARBON DIOXIDE LEVEL 34 MMOL/L (20-31); CHLORIDE LEVEL 100 MMOL/L (98-107); CREATININE FOR GFR 1.02 MG/DL (0.70-1.30); GLOMERULAR FILTRATION RATE > 60.0 (>49); GLUCOSE, FASTING 97 MG/DL (74-106); PHOSPHORUS LEVEL 3.4 MG/DL (2.4-5.1); POTASSIUM SERUM 4.5 MMOL/L (3.5-5.1); SODIUM LEVEL 140 MMOL/L (136-145); TOTAL PROTEIN 8.4 G/DL (5.7-8.2)
[2023-12-30] MEDS ORDERED: HOME MED LIST COMPLETE! XX SCH (12:10)
[2023-12-30 12:16] LABS: PHENOBARBITAL LEVEL 45.3 UG/ML (15.0-40.0)
[2023-12-30] MEDS: NS (Normal Saline) 0.9% 2,140 ML in IV 1 EA IV ONE (12:41)
[2023-12-30] MEDS: cefTRIAXone SOD 2 GM in DEXTROSE 5% (D5W) ADV/MINI-BAG 50 ML IV ONE (12:41)
[2023-12-30] MEDS ORDERED: ISOVUE-370 76% 100ML VIAL As Ordered ONE (12:59)
[2023-12-30 13:04] LABS: PHENYTOIN (DILANTIN) 42.2 UG/ML (10.0-20.0)
[2023-12-30] MEDS: NS (Normal Saline) 0.9% 1,000 ML IV ONE (15:42)
[2023-12-30] MEDS: NOREPINEPHRINE 4MG IN D5 250ML 4 MG in IV 1 EA IV SCH ×2 (17:39→17:49)
[2023-12-30] MEDS ORDERED: LR 1,000 ML IV SCH (17:40)
[2023-12-30] MEDS ORDERED: VANCOMYCIN HCL 1,000 MG in IV FLUID PLACE HOLDER 1 EA IV SCH (17:40)
[2023-12-30] MEDS: PANTOPRAZOLE 40MG VIAL IV SCH (17:58)
[2023-12-30] MEDS ORDERED: ALBUTEROL SULFATE 2.5MG/0.5ML INH NEB SOLN NEB PRN (18:10)
[2023-12-30 18:15] LABS: ABG BASE EXCESS 0.3 (-2.0-2.0); ABG O2 SATURATION 90.7 % (95.0-99.0); ABG PARTIAL PRESSURE CO2 45.6 mmHg (35.0-45.0); ABG PARTIAL PRESSURE O2 56.7 mmHg (75.0-100.0); ABG STANDARD HCO3 24.6 MMOL/L. (22.0-26.0); ABG TOTAL CO2 27.4 MMOL/L (23.0-31.0); ABG pH (ARTERIAL) 7.374 UNITS (7.350-7.450)
[2023-12-30 18:57] LABS: THYROID STIMULATING HORMONE 3.869 uIU/ML (0.55-4.78)
[2023-12-30 18:58] LABS: FREE T4 0.99 NG/DL (0.89-1.76)
[2023-12-30] MEDS: NS (Normal Saline) 0.9% 1,000 ML IV SCH (19:43)
[2023-12-30] MEDS: PIPERACILLIN/TAZOBACTAM SOD 4.5 GM in DEXTROSE 5% (D5W) ADV/MINI-BAG 50 ML IV SCH (19:43)
[2023-12-30] MEDS: HYDROCORTISONE 100MG/2ML VIAL IV SCH (20:09)
[2023-12-30] MEDS: VANCOMYCIN 1,750 MG/350 ML IV BAG *LOAD IV ONE (20:41)
[2023-12-30] MEDS: FORMOTEROL FUMARATE 20 MCG/2 ML INHALATION SOLUTION (PERFOROMIST) INH SCH (20:51)
[2023-12-30 23:42] LABS: ABG BASE EXCESS -3.9 (-2.0-2.0); ABG HCO3 21.2 MMOL/L (22.0-26.0); ABG O2 SATURATION 92.2 % (95.0-99.0); ABG PARTIAL PRESSURE O2 61.5 mmHg (75.0-100.0); ABG STANDARD HCO3 21.1 MMOL/L. (22.0-26.0); ABG TOTAL CO2 22.4 MMOL/L (23.0-31.0); ABG pH (ARTERIAL) 7.353 UNITS (7.350-7.450)
[2023-12-31] VITALS (104 sets, daily range): BP systolic 70–151; BP diastolic 43–82; TEMP 97.6–98.4; O2SAT 89–99
[2023-12-31] MEDS: VASOPRESSIN IN 0.9 % NACL 20 UNIT in IV 1 EA IV SCH (02:18)
[2023-12-31] MEDS: LORazepam 2 MG/ML 1ML VIAL IV ONE (02:21)
[2023-12-31 05:04] LABS: MEAN CORPUSCULAR HGB CONC 33.7 g/dl (32.0-36.5); PLATELET COUNT, AUTOMATED 224 10^3/uL (150-450); RED BLOOD COUNT 4.26 10^6/uL (4.30-6.10); WHITE BLOOD COUNT 21.6 10^3/uL (4.0-10.0)
[2023-12-31 05:11] LABS: HEMATOCRIT 39.2 % (42.0-52.0); HEMOGLOBIN 13.2 g/dl (13.5-17.5)
[2023-12-31 05:18] LABS: ALBUMIN 2.6 G/DL (3.2-5.2); ALKALINE PHOSPHATASE 97 U/L (40-129); ALT/SGPT 29 U/L (7.0-40); AST/SGOT 42 U/L (<34); BILIRUBIN,TOTAL 0.3 MG/DL (0.3-1.2); BLOOD UREA NITROGEN 23 MG/DL (9-23); CALCIUM LEVEL 7.6 MG/DL (8.3-10.6); CARBON DIOXIDE LEVEL 24 MMOL/L (20-31); CHLORIDE LEVEL 105 MMOL/L (98-107); CREATININE FOR GFR 1.04 MG/DL (0.70-1.30); GLOMERULAR FILTRATION RATE > 60.0 (>49); GLUCOSE, FASTING 211 MG/DL (74-106); POTASSIUM SERUM 3.7 MMOL/L (3.5-5.1); SODIUM LEVEL 140 MMOL/L (136-145); TOTAL PROTEIN 5.8 G/DL (5.7-8.2)
[2023-12-31 06:43] LABS: LYMPHOCYTES 6 % (16-44); METAMYELOCYTES 2 % (0-0); MONOCYTES 8 % (0-5); NEUTROPHILS 79 % (28-66); PLATELET ESTIMATE NORMAL (NORMAL)
[2023-12-31] MEDS ORDERED: GLUCOSE 4 GM CHEW PO PRN (08:20)
[2023-12-31] MEDS ORDERED: DEXTROSE 50% 50ML SYRINGE IV PRN (08:20)
[2023-12-31] MEDS ORDERED: GLUCAGON INJ 1MG VIAL SC PRN (08:20)
[2023-12-31] MEDS: VANCOMYCIN 1,000MG/200 ML IV BAG IV SCH (08:22)
[2023-12-31] MEDS: ENOXAPARIN 40MG/0.4ML SYRINGE (J1650 PER 10MG) SC SCH (08:22)
[2023-12-31] MEDS: LR 500 ML IV STA (09:15)
[2023-12-31 11:18] LABS: PHENYTOIN (DILANTIN) 26.3 UG/ML (10.0-20.0)
[2023-12-31] MEDS: SODIUM CHLORIDE HYPERTONIC 3% 4ML NEB SOL INH SCH (11:38)
[2023-12-31] MEDS: ALBUTEROL SULFATE 2.5MG/0.5ML INH NEB SOLN NEB SCH (11:38)
[2023-12-31] MEDS: PHENobarbital 65MG/ML 1ML VIAL IV SCH (13:29)
[2023-12-31] MEDS: levETIRAcetam INJection 1,000 MG in D5W 100 ML IV SCH (13:40)
[2023-12-31] MEDS: LR 1,000 ML IV ONE (14:40)
[2023-12-31] MEDS: LACTATED RINGER'S 1000 ML IV ONE (18:53)
[2023-12-31] MEDS: levETIRAcetam INJection 1,500 MG in D5W 100 ML IV SCH (21:06)
[2023-12-31] MEDS: PHENYTOIN 100MG/2ML VIAL IV SCH (21:06)
[2024-01-01] VITALS (55 sets, daily range): BP systolic 90–137; BP diastolic 44–89; TEMP 97.3–98; O2SAT 90–100
[2024-01-01 04:37] LABS: HEMATOCRIT 33.1 % (42.0-52.0); HEMOGLOBIN 11.4 g/dl (13.5-17.5); MEAN CORPUSCULAR HEMOGLOBIN 30.9 pg (27.0-33.0); MEAN CORPUSCULAR HGB CONC 34.4 g/dl (32.0-36.5); MEAN CORPUSCULAR VOLUME 89.7 fl (80.0-96.0); PLATELET COUNT, AUTOMATED 141 10^3/uL (150-450); RED BLOOD COUNT 3.69 10^6/uL (4.30-6.10); WHITE BLOOD COUNT 25.4 10^3/uL (4.0-10.0)
[2024-01-01 05:05] LABS: ATYPICAL LYMPH 3 % (0-5); LYMPHOCYTES 2 % (16-44); METAMYELOCYTES 8 % (0-0); MONOCYTES 3 % (0-5); NEUTROPHILS 70 % (28-66)
[2024-01-01 05:06] LABS: PLATELET ESTIMATE NORMAL (NORMAL)
[2024-01-01 05:36] LABS: ALBUMIN 2.3 G/DL (3.2-5.2); ALKALINE PHOSPHATASE 84 U/L (40-129); ALT/SGPT 38 U/L (7.0-40); AST/SGOT 63 U/L (<34); BILIRUBIN,TOTAL < 0.2 MG/DL (0.3-1.2); BLOOD UREA NITROGEN 25 MG/DL (9-23); CALCIUM LEVEL 7.4 MG/DL (8.3-10.6); CARBON DIOXIDE LEVEL 26 MMOL/L (20-31); CHLORIDE LEVEL 105 MMOL/L (98-107); CREATININE FOR GFR 0.74 MG/DL (0.70-1.30); GLOMERULAR FILTRATION RATE > 60.0 (>49); GLUCOSE, FASTING 143 MG/DL (74-106); POTASSIUM SERUM 3.4 MMOL/L (3.5-5.1); SODIUM LEVEL 138 MMOL/L (136-145); TOTAL PROTEIN 5.4 G/DL (5.7-8.2)
[2024-01-01 06:52] LABS: Estimated Ave Glu(eAG) 6.3 mmol/L; Hemoglobin A1c 5.6 (<5.7)
[2024-01-01] MEDS: KCL 20MEQ IN 100ML SWI (KRUN) 20 MEQ in IV 1 EA IV ONE (08:04)
[2024-01-01 13:11] LABS: PROCALCITONIN 4.64 ng/ml
[2024-01-01] MEDS: HYDROCORTISONE 100MG/2ML VIAL IV SCH (21:09)
[2024-01-01] MEDS: PHENYTOIN 100MG/2ML VIAL IV SCH (21:09)
[2024-01-02] VITALS (21 sets, daily range): BP systolic 92–134; BP diastolic 50–70; TEMP 97.3–99; O2SAT 90–98
[2024-01-02 04:48] LABS: HEMATOCRIT 29.4 % (42.0-52.0); HEMOGLOBIN 10.1 g/dl (13.5-17.5); MEAN CORPUSCULAR HEMOGLOBIN 30.6 pg (27.0-33.0); MEAN CORPUSCULAR HGB CONC 34.4 g/dl (32.0-36.5); MEAN CORPUSCULAR VOLUME 89.1 fl (80.0-96.0); PLATELET COUNT, AUTOMATED 123 10^3/uL (150-450); WHITE BLOOD COUNT 19.2 10^3/uL (4.0-10.0)
[2024-01-02 05:10] LABS: PHENOBARBITAL LEVEL 29.8 UG/ML (15.0-40.0)
[2024-01-02 05:11] LABS: PHENYTOIN (DILANTIN) 28.2 UG/ML (10.0-20.0)
[2024-01-02 05:13] LABS: ALBUMIN 2.2 G/DL (3.2-5.2); ALKALINE PHOSPHATASE 99 U/L (40-129); ALT/SGPT 39 U/L (7.0-40); AST/SGOT 58 U/L (<34); BILIRUBIN,TOTAL 0.2 MG/DL (0.3-1.2); BLOOD UREA NITROGEN 31 MG/DL (9-23); CALCIUM LEVEL 7.4 MG/DL (8.3-10.6); CARBON DIOXIDE LEVEL 28 MMOL/L (20-31); CHLORIDE LEVEL 106 MMOL/L (98-107); GLOMERULAR FILTRATION RATE > 60.0 (>49); GLUCOSE, FASTING 127 MG/DL (74-106); SODIUM LEVEL 141 MMOL/L (136-145); TOTAL PROTEIN 5.4 G/DL (5.7-8.2)
[2024-01-02] MEDS: KCL 20MEQ IN 100ML SWI (KRUN) 20 MEQ in IV 1 EA IV ONE (05:41)
[2024-01-02 05:46] LABS: LYMPHOCYTES 9 % (16-44); MONOCYTES 3 % (0-5); NEUTROPHILS 73 % (28-66)
[2024-01-02 05:47] LABS: ANISOCYTOSIS 1+; PLATELET ESTIMATE DECREASED (NORMAL)
[2024-01-02 07:47] LABS: MAGNESIUM LEVEL 3.1 MG/DL (1.8-2.4)
[2024-01-02] MEDS: POTASSIUM CHLORIDE 10% LIQ 20MEQ/15ML UDC PO ONE (08:45)
[2024-01-03] VITALS (37 sets, daily range): BP systolic 115–158; BP diastolic 67–85; TEMP 97.8–101.7; O2SAT 86–95
[2024-01-03 06:03] LABS: HEMATOCRIT 30.2 % (42.0-52.0); HEMOGLOBIN 10.6 g/dl (13.5-17.5); MEAN CORPUSCULAR HEMOGLOBIN 30.6 pg (27.0-33.0); MEAN CORPUSCULAR HGB CONC 35.1 g/dl (32.0-36.5); MEAN CORPUSCULAR VOLUME 87.3 fl (80.0-96.0); PLATELET COUNT, AUTOMATED 152 10^3/uL (150-450); RED BLOOD COUNT 3.46 10^6/uL (4.30-6.10); WHITE BLOOD COUNT 14.4 10^3/uL (4.0-10.0)
[2024-01-03 06:34] LABS: PHENYTOIN (DILANTIN) 26.7 UG/ML (10.0-20.0)
[2024-01-03 06:38] LABS: BLOOD UREA NITROGEN 22 MG/DL (9-23); CALCIUM LEVEL 7.4 MG/DL (8.3-10.6); CARBON DIOXIDE LEVEL 27 MMOL/L (20-31); CHLORIDE LEVEL 107 MMOL/L (98-107); CREATININE FOR GFR 0.59 MG/DL (0.70-1.30); GLOMERULAR FILTRATION RATE > 60.0 (>49); GLUCOSE, FASTING 134 MG/DL (74-106); POTASSIUM SERUM 3.7 MMOL/L (3.5-5.1); SODIUM LEVEL 141 MMOL/L (136-145)
[2024-01-03] MEDS ORDERED: FUROSEMIDE 40MG/4ML VIAL As Ordered ONE (13:58)
[2024-01-03] MEDS: FUROSEMIDE 40MG/4ML VIAL IV ONE ×2 (14:05→18:11)
[2024-01-03 14:18] LABS: ABG BASE EXCESS 4.6 (-2.0-2.0); ABG HCO3 26.9 MMOL/L (22.0-26.0); ABG O2 SATURATION 90.9 % (95.0-99.0); ABG PARTIAL PRESSURE CO2 32.5 mmHg (35.0-45.0); ABG STANDARD HCO3 28.4 MMOL/L. (22.0-26.0); ABG TOTAL CO2 27.9 MMOL/L (23.0-31.0); ABG pH (ARTERIAL) 7.536 UNITS (7.350-7.450)
[2024-01-03 14:26] LABS: ABG PARTIAL PRESSURE O2 49.6 mmHg (75.0-100.0)
[2024-01-03] MEDS: ACETAMINOPHEN *IV* 1,000 MG in IV 1 EA IV PRN (18:11)
[2024-01-03] MEDS ORDERED: FUROSEMIDE 20MG/2ML VIAL IV ONE (20:00)
[2024-01-04] VITALS (96 sets, daily range): BP systolic 80–173; BP diastolic 46–89; TEMP 96.4–101.8; O2SAT 65–99
[2024-01-04] MEDS: FUROSEMIDE 40MG/4ML VIAL IV ONE (07:38)
[2024-01-04] MEDS: VANCOMYCIN/WATER FOR INJ 1,000 MG in IV 1 EA IV STA (09:00)
[2024-01-04 09:14] LABS: MEAN CORPUSCULAR HEMOGLOBIN 30.8 pg (27.0-33.0); MEAN CORPUSCULAR HGB CONC 34.4 g/dl (32.0-36.5); MEAN CORPUSCULAR VOLUME 89.3 fl (80.0-96.0); PLATELET COUNT, AUTOMATED 224 10^3/uL (150-450); RED BLOOD COUNT 4.13 10^6/uL (4.30-6.10); WHITE BLOOD COUNT 14.5 10^3/uL (4.0-10.0)
[2024-01-04] MEDS: FUROSEMIDE 40MG/4ML VIAL IV SCH (09:19)
[2024-01-04 09:21] LABS: ABG BASE EXCESS 6.5 (-2.0-2.0); ABG HCO3 29.5 MMOL/L (22.0-26.0); ABG PARTIAL PRESSURE CO2 36.6 mmHg (35.0-45.0); ABG PARTIAL PRESSURE O2 50.6 mmHg (75.0-100.0); ABG STANDARD HCO3 30.2 MMOL/L. (22.0-26.0); ABG TOTAL CO2 30.6 MMOL/L (23.0-31.0); ABG pH (ARTERIAL) 7.524 UNITS (7.350-7.450)
[2024-01-04 09:23] LABS: HEMATOCRIT 36.9 % (42.0-52.0); HEMOGLOBIN 12.7 g/dl (13.5-17.5)
[2024-01-04 09:48] LABS: PHENYTOIN (DILANTIN) 26.8 UG/ML (10.0-20.0)
[2024-01-04] MEDS ORDERED: MIDAZOLAM INJ 2MG/2ML VIAL As Ordered ONE (09:48)
[2024-01-04] MEDS ORDERED: FENTANYL DRIP LOCK BOX KEY 1 EACH XX PRN (09:50)
[2024-01-04] MEDS: SUCCINYLCHOLINE INJ 200MG/10ML VIAL IV STA (09:58)
[2024-01-04] MEDS: ETOMIDATE INJ 20MG/10ML VIAL IV STA (09:58)
[2024-01-04] MEDS: LR 500 ML IV ONE (09:58)
[2024-01-04] MEDS: MIDAZOLAM INJ 2MG/2ML VIAL IV ONE (10:04)
[2024-01-04] MEDS ORDERED: MIDAZOLAM 100MG/100ML-0.9%NACL IV ONE (10:05)
[2024-01-04] MEDS: ROCURONIUM BROMIDE 50MG/5ML VIAL IV STA (10:06)
[2024-01-04] MEDS: FUROSEMIDE injection 100 MG, VIAL 2 BAG 13MM ADAPTER 1 EACH in D5W 100 ML IV SCH ×2 (11:12→16:29)
[2024-01-04] MEDS: MIDAZOLAM 100MG/100ML-0.9%NACL 100 MG in IV 1 EA IV SCH (11:14)
[2024-01-04 11:19] LABS: ABG BASE EXCESS 5.7 (-2.0-2.0); ABG HCO3 27.6 MMOL/L (22.0-26.0); ABG O2 SATURATION 91.1 % (95.0-99.0); ABG PARTIAL PRESSURE CO2 31.6 mmHg (35.0-45.0); ABG PARTIAL PRESSURE O2 50.1 mmHg (75.0-100.0); ABG STANDARD HCO3 29.4 MMOL/L. (22.0-26.0); ABG TOTAL CO2 28.6 MMOL/L (23.0-31.0); ABG pH (ARTERIAL) 7.559 UNITS (7.350-7.450)
[2024-01-04] MEDS: fentaNYL CITRATE/NaCl 1,000 MCG in IV 1 EA IV SCH (11:38)
[2024-01-04 12:19] LABS: BLOOD UREA NITROGEN 17 MG/DL (9-23); CALCIUM LEVEL 7.9 MG/DL (8.3-10.6); CARBON DIOXIDE LEVEL 33 MMOL/L (20-31); CHLORIDE LEVEL 100 MMOL/L (98-107); CREATININE FOR GFR 0.66 MG/DL (0.70-1.30); GLOMERULAR FILTRATION RATE > 60.0 (>49); GLUCOSE, FASTING 85 MG/DL (74-106); MAGNESIUM LEVEL 1.8 MG/DL (1.8-2.4); POTASSIUM SERUM 2.8 MMOL/L (3.5-5.1); SODIUM LEVEL 143 MMOL/L (136-145)
[2024-01-04] MEDS: AZITHROMYCIN INJ 500 MG, VIAL MATE ADAPTER 1 EACH in NS 250 ML IV SCH (12:58)
[2024-01-04] MEDS: KCL 10MEQ/100ML SWI (KRUN) 10 MEQ in IV 1 EA IV SCH (13:00)
[2024-01-04] MEDS: POTASSIUM CHLORIDE 10% LIQ 20MEQ/15ML UDC PO ONE (13:00)
[2024-01-04] MEDS: NOREPINEPHRINE 4MG IN D5 250ML 4 MG in IV 1 EA IV SCH (13:41)
[2024-01-04] MEDS: IBUPROFEN 400MG TAB PO PRN (16:43)
[2024-01-04] MEDS ORDERED: KCL 10MEQ/100ML SWI (KRUN) 10 MEQ in IV 1 EA IV SCH (17:00)
[2024-01-04 17:34] LABS: MAGNESIUM LEVEL 1.6 MG/DL (1.8-2.4); POTASSIUM SERUM 2.7 MMOL/L (3.5-5.1)
[2024-01-04] MEDS: KCL 20MEQ IN 100ML SWI (KRUN) 20 MEQ in IV 1 EA IV SCH (17:59)
[2024-01-04] MEDS: SODIUM CHLORIDE 0.9% INJ 10 ML SYR IV SCH (18:00)
[2024-01-04] MEDS: MAG SULF 1GM/100ML (MAG RUN) 1 GM in IV 1 EA IV SCH (18:09)
[2024-01-05] VITALS (106 sets, daily range): BP systolic 67–141; BP diastolic 41–83; TEMP 98.6–100.8; O2SAT 91–99
[2024-01-05 04:18] LABS: HEMATOCRIT 29.7 % (42.0-52.0); MEAN CORPUSCULAR HEMOGLOBIN 30.4 pg (27.0-33.0); MEAN CORPUSCULAR VOLUME 89.5 fl (80.0-96.0); PLATELET COUNT, AUTOMATED 207 10^3/uL (150-450); RED BLOOD COUNT 3.32 10^6/uL (4.30-6.10); WHITE BLOOD COUNT 9.1 10^3/uL (4.0-10.0)
[2024-01-05 04:41] LABS: HEMOGLOBIN 10.1 g/dl (13.5-17.5)
[2024-01-05 04:49] LABS: ALBUMIN 1.9 G/DL (3.2-5.2); BILIRUBIN,TOTAL 0.6 MG/DL (0.3-1.2); CALCIUM LEVEL 7.4 MG/DL (8.3-10.6); CREATININE FOR GFR 1.31 MG/DL (0.70-1.30); GLOMERULAR FILTRATION RATE 59.2 (>49); MAGNESIUM LEVEL 2.5 MG/DL (1.8-2.4); TOTAL PROTEIN 5.5 G/DL (5.7-8.2)
[2024-01-05] MEDS: KCL 10MEQ/100ML SWI (KRUN) 10 MEQ in IV 1 EA IV SCH (05:36)
[2024-01-05 05:41] LABS: ABG BASE EXCESS 4.4 (-2.0-2.0); ABG HCO3 28.2 MMOL/L (22.0-26.0); ABG O2 SATURATION 99.2 % (95.0-99.0); ABG PARTIAL PRESSURE O2 175.3 mmHg (75.0-100.0); ABG STANDARD HCO3 28.5 MMOL/L. (22.0-26.0); ABG TOTAL CO2 29.4 MMOL/L (23.0-31.0); ABG pH (ARTERIAL) 7.477 UNITS (7.350-7.450)
[2024-01-05] MEDS ORDERED: VANCOMYCIN INTERMITTENT/PULSE DOSING BY CLINICAL PHARMACIST PER DOSING PROTOCOL XX SCH (07:30)
[2024-01-05 08:37] LABS: VANCOMYCIN RANDOM 14.5 UG/ML
[2024-01-05] MEDS ORDERED: levETIRAcetam INJection 750 MG in D5W 100 ML IV SCH (09:00)
[2024-01-05] MEDS: FAMOTIDINE 20 MG TAB PO SCH (09:12)
[2024-01-05] MEDS: KCL 20MEQ IN 100ML SWI (KRUN) 20 MEQ in IV 1 EA IV STA (09:12)
[2024-01-05] MEDS: PHENYTOIN 100MG/2ML VIAL IV SCH (09:12)
[2024-01-05] MEDS: VANCOMYCIN HCL 500 MG in DEXTROSE 5% (D5W) MINI-BAG PLU 100 ML IV ONE (09:51)
[2024-01-05] MEDS: levETIRAcetam INJection 750 MG in D5W 100 ML IV SCH (11:20)
[2024-01-05] MEDS: LACTATED RINGER'S 1000 ML IV ONE (15:40)
[2024-01-05] MEDS ORDERED: LR 500 ML IV ONE (15:40)
[2024-01-05] MEDS: NOREPINEPHRINE 4MG IN D5 250ML 4 MG in IV 1 EA IV SCH (16:50)
[2024-01-06] VITALS (73 sets, daily range): BP systolic 78–148; BP diastolic 48–86; TEMP 97.7–101.1; O2SAT 89–100
[2024-01-06 04:43] LABS: HEMATOCRIT 26.2 % (42.0-52.0); HEMOGLOBIN 9.1 g/dl (13.5-17.5); MEAN CORPUSCULAR HGB CONC 34.7 g/dl (32.0-36.5); MEAN CORPUSCULAR VOLUME 89.1 fl (80.0-96.0); PLATELET COUNT, AUTOMATED 241 10^3/uL (150-450); RED BLOOD COUNT 2.94 10^6/uL (4.30-6.10); WHITE BLOOD COUNT 8.2 10^3/uL (4.0-10.0)
[2024-01-06 05:09] LABS: ALBUMIN 1.7 G/DL (3.2-5.2); ALKALINE PHOSPHATASE 302 U/L (40-129); ALT/SGPT 24 U/L (7.0-40); AST/SGOT 23 U/L (<34); BILIRUBIN,TOTAL 0.4 MG/DL (0.3-1.2); BLOOD UREA NITROGEN 21 MG/DL (9-23); CALCIUM LEVEL 7.4 MG/DL (8.3-10.6); CARBON DIOXIDE LEVEL 31 MMOL/L (20-31); CHLORIDE LEVEL 102 MMOL/L (98-107); CREATININE FOR GFR 0.73 MG/DL (0.70-1.30); GLOMERULAR FILTRATION RATE > 60.0 (>49); GLUCOSE, FASTING 115 MG/DL (74-106); MAGNESIUM LEVEL 1.9 MG/DL (1.8-2.4); POTASSIUM SERUM 2.6 MMOL/L (3.5-5.1); SODIUM LEVEL 138 MMOL/L (136-145); TOTAL PROTEIN 5.1 G/DL (5.7-8.2)
[2024-01-06] MEDS: VANCOMYCIN 1,000 MG/200 ML IV BAG *LOAD IV ONE (05:26)
[2024-01-06] MEDS: KCL 20MEQ IN 100ML SWI (KRUN) 20 MEQ in IV 1 EA IV ONE ×2 (05:49→10:13)
[2024-01-06 06:08] LABS: ABG BASE EXCESS 4.3 (-2.0-2.0); ABG HCO3 28.3 MMOL/L (22.0-26.0); ABG O2 SATURATION 96.2 % (95.0-99.0); ABG PARTIAL PRESSURE CO2 39.9 mmHg (35.0-45.0); ABG PARTIAL PRESSURE O2 78.8 mmHg (75.0-100.0); ABG STANDARD HCO3 28.3 MMOL/L. (22.0-26.0); ABG TOTAL CO2 29.5 MMOL/L (23.0-31.0); ABG pH (ARTERIAL) 7.469 UNITS (7.350-7.450)
[2024-01-06] MEDS: KCL 20MEQ IN 100ML SWI (KRUN) 20 MEQ in IV 1 EA IV STA (08:59)
[2024-01-06] MEDS: FUROSEMIDE injection 100 MG, VIAL 2 BAG 13MM ADAPTER 1 EACH in D5W 100 ML IV SCH (09:09)
[2024-01-06] MEDS: MIDAZOLAM INJ 2MG/2ML VIAL IV PRN (10:32)
[2024-01-06] MEDS ORDERED: IBUPROFEN 100MG 5ML SUSP UDC DYE FREE PO PRN (14:15)
[2024-01-06] MEDS: ACETAMINOPHEN 325MG/10.15ML UDC GT PRN (14:39)
[2024-01-06] MEDS ORDERED: POTASSIUM CHLORIDE 10MEQ SR TABLET PO ONE (15:30)
[2024-01-06] MEDS ORDERED: KCL 20MEQ IN 100ML SWI (KRUN) 20 MEQ in IV 1 EA IV ONE (15:30)
[2024-01-06] MEDS: POTASSIUM CHLORIDE 10% LIQ 20MEQ/15ML UDC NG ONE (16:02)
[2024-01-06 21:29] LABS: PROCALCITONIN 1.47 ng/ml
[2024-01-07] VITALS (42 sets, daily range): BP systolic 91–150; BP diastolic 52–88; TEMP 99.3–100.6; O2SAT 91–97
[2024-01-07 04:27] LABS: HEMATOCRIT 26.9 % (42.0-52.0); HEMOGLOBIN 9.3 g/dl (13.5-17.5); MEAN CORPUSCULAR HEMOGLOBIN 30.8 pg (27.0-33.0); MEAN CORPUSCULAR HGB CONC 34.6 g/dl (32.0-36.5); MEAN CORPUSCULAR VOLUME 89.1 fl (80.0-96.0); PLATELET COUNT, AUTOMATED 287 10^3/uL (150-450); RED BLOOD COUNT 3.02 10^6/uL (4.30-6.10); WHITE BLOOD COUNT 11.2 10^3/uL (4.0-10.0)
[2024-01-07 04:53] LABS: PHENYTOIN (DILANTIN) 12.9 UG/ML (10.0-20.0)
[2024-01-07 04:55] LABS: ALBUMIN 1.8 G/DL (3.2-5.2); ALKALINE PHOSPHATASE 434 U/L (40-129); ALT/SGPT 24 U/L (7.0-40); AST/SGOT 27 U/L (<34); BILIRUBIN,TOTAL 0.3 MG/DL (0.3-1.2); BLOOD UREA NITROGEN 20 MG/DL (9-23); CALCIUM LEVEL 7.6 MG/DL (8.3-10.6); CARBON DIOXIDE LEVEL 33 MMOL/L (20-31); CHLORIDE LEVEL 100 MMOL/L (98-107); CREATININE FOR GFR 0.72 MG/DL (0.70-1.30); GLOMERULAR FILTRATION RATE > 60.0 (>49); GLUCOSE, FASTING 117 MG/DL (74-106); MAGNESIUM LEVEL 1.3 MG/DL (1.8-2.4); POTASSIUM SERUM 2.5 MMOL/L (3.5-5.1); SODIUM LEVEL 139 MMOL/L (136-145); TOTAL PROTEIN 5.5 G/DL (5.7-8.2)
[2024-01-07 05:42] LABS: ABG HCO3 31.5 MMOL/L (22.0-26.0); ABG O2 SATURATION 96.8 % (95.0-99.0); ABG PARTIAL PRESSURE CO2 39.7 mmHg (35.0-45.0); ABG PARTIAL PRESSURE O2 82.3 mmHg (75.0-100.0); ABG STANDARD HCO3 31.8 MMOL/L. (22.0-26.0); ABG TOTAL CO2 32.7 MMOL/L (23.0-31.0); ABG pH (ARTERIAL) 7.517 UNITS (7.350-7.450)
[2024-01-07] MEDS: MAG SULF 1GM/100ML (MAG RUN) 1 GM in IV 1 EA IV SCH (05:46)
[2024-01-07] MEDS: KCL 20MEQ IN 100ML SWI (KRUN) 20 MEQ in IV 1 EA IV ONE ×6 (07:44→18:19)
[2024-01-07] MEDS: POTASSIUM CHLORIDE 10% LIQ 20MEQ/15ML UDC NG STA (10:15)
[2024-01-07] MEDS: ASPIRIN 81MG CHEW TABLET TF SCH (10:16)
[2024-01-07] MEDS ORDERED: KCL 20MEQ IN 100ML SWI (KRUN) 20 MEQ in IV 1 EA IV SCH (10:30)
[2024-01-07] MEDS: cefTRIAXone SOD 2 GM in DEXTROSE 5% (D5W) ADV/MINI-BAG 50 ML IV SCH (12:33)
[2024-01-07] MEDS: PANTOPRAZOLE 40MG VIAL IV SCH (12:34)
[2024-01-07 15:38] LABS: BLOOD UREA NITROGEN 22 MG/DL (9-23); CALCIUM LEVEL 7.2 MG/DL (8.3-10.6); CARBON DIOXIDE LEVEL 33 MMOL/L (20-31); CHLORIDE LEVEL 100 MMOL/L (98-107); CREATININE FOR GFR 0.72 MG/DL (0.70-1.30); GLOMERULAR FILTRATION RATE > 60.0 (>49); GLUCOSE, FASTING 124 MG/DL (74-106); POTASSIUM SERUM 3.3 MMOL/L (3.5-5.1); SODIUM LEVEL 138 MMOL/L (136-145)
[2024-01-07 16:31] LABS: PHOSPHORUS LEVEL 2.2 MG/DL (2.4-5.1)
[2024-01-07] MEDS: propofoL 1,000 MG in IV 1 EA IV SCH (18:36)
[2024-01-08] VITALS (27 sets, daily range): BP systolic 90–150; BP diastolic 54–87; TEMP 98.6–100.7; O2SAT 91–99
[2024-01-08 05:11] LABS: HEMATOCRIT 24.9 % (42.0-52.0); HEMOGLOBIN 8.5 g/dl (13.5-17.5); MEAN CORPUSCULAR HEMOGLOBIN 30.5 pg (27.0-33.0); MEAN CORPUSCULAR HGB CONC 34.1 g/dl (32.0-36.5); MEAN CORPUSCULAR VOLUME 89.2 fl (80.0-96.0); PLATELET COUNT, AUTOMATED 350 10^3/uL (150-450); RED BLOOD COUNT 2.79 10^6/uL (4.30-6.10); WHITE BLOOD COUNT 9.5 10^3/uL (4.0-10.0)
[2024-01-08 05:47] LABS: ALBUMIN 1.7 G/DL (3.2-5.2); ALKALINE PHOSPHATASE 451 U/L (40-129); ALT/SGPT 28 U/L (7.0-40); AST/SGOT 40 U/L (<34); BILIRUBIN,TOTAL < 0.2 MG/DL (0.3-1.2); BLOOD UREA NITROGEN 22 MG/DL (9-23); CALCIUM LEVEL 7.4 MG/DL (8.3-10.6); CARBON DIOXIDE LEVEL 32 MMOL/L (20-31); CHLORIDE LEVEL 99 MMOL/L (98-107); CREATININE FOR GFR 0.61 MG/DL (0.70-1.30); GLOMERULAR FILTRATION RATE > 60.0 (>49); GLUCOSE, FASTING 116 MG/DL (74-106); MAGNESIUM LEVEL 1.6 MG/DL (1.8-2.4); POTASSIUM SERUM 3.6 MMOL/L (3.5-5.1); SODIUM LEVEL 138 MMOL/L (136-145); TOTAL PROTEIN 5.5 G/DL (5.7-8.2)
[2024-01-08] MEDS: MAG SULF 1GM/100ML (MAG RUN) 1 GM in IV 1 EA IV SCH (08:47)
[2024-01-08] MEDS: FAMOTIDINE 20 MG TAB GT SCH (08:50)
[2024-01-08] MEDS: KCL 20MEQ IN 100ML SWI (KRUN) 20 MEQ in IV 1 EA IV SCH (11:15)
[2024-01-08 17:42] LABS: BLOOD UREA NITROGEN 20 MG/DL (9-23); CALCIUM LEVEL 8.3 MG/DL (8.3-10.6); CARBON DIOXIDE LEVEL 31 MMOL/L (20-31); CHLORIDE LEVEL 96 MMOL/L (98-107); CREATININE FOR GFR 0.59 MG/DL (0.70-1.30); GLOMERULAR FILTRATION RATE > 60.0 (>49); GLUCOSE, FASTING 118 MG/DL (74-106); POTASSIUM SERUM 3.7 MMOL/L (3.5-5.1); SODIUM LEVEL 138 MMOL/L (136-145)
[2024-01-08] MEDS: ACETAMINOPHEN *IV* 1,000 MG in IV 1 EA IV PRN (18:32)
[2024-01-08] MEDS: D5W/LR 1,000 ML IV SCH (18:33)
[2024-01-09] VITALS (18 sets, daily range): BP systolic 106–179; BP diastolic 56–90; TEMP 99.5–100.6; O2SAT 91–96
[2024-01-09 04:42] LABS: HEMATOCRIT 29.3 % (42.0-52.0); HEMOGLOBIN 9.9 g/dl (13.5-17.5); MEAN CORPUSCULAR HEMOGLOBIN 30.7 pg (27.0-33.0); MEAN CORPUSCULAR HGB CONC 33.8 g/dl (32.0-36.5); MEAN CORPUSCULAR VOLUME 90.7 fl (80.0-96.0); RED BLOOD COUNT 3.23 10^6/uL (4.30-6.10); WHITE BLOOD COUNT 10.5 10^3/uL (4.0-10.0)
[2024-01-09 04:43] LABS: PLATELET COUNT, AUTOMATED 510 10^3/uL (150-450)
[2024-01-09 05:14] LABS: PHENYTOIN (DILANTIN) 10.1 UG/ML (10.0-20.0)
[2024-01-09 05:30] LABS: ALBUMIN 2.2 G/DL (3.2-5.2); ALKALINE PHOSPHATASE 456 U/L (40-129); ALT/SGPT 40 U/L (7.0-40); AST/SGOT 55 U/L (<34); BILIRUBIN,TOTAL 0.2 MG/DL (0.3-1.2); BLOOD UREA NITROGEN 14 MG/DL (9-23); CALCIUM LEVEL 8.5 MG/DL (8.3-10.6); CARBON DIOXIDE LEVEL 31 MMOL/L (20-31); CHLORIDE LEVEL 99 MMOL/L (98-107); CREATININE FOR GFR 0.49 MG/DL (0.70-1.30); GLOMERULAR FILTRATION RATE > 60.0 (>49); GLUCOSE, FASTING 119 MG/DL (74-106); MAGNESIUM LEVEL 2.1 MG/DL (1.8-2.4); POTASSIUM SERUM 3.7 MMOL/L (3.5-5.1); SODIUM LEVEL 138 MMOL/L (136-145); TOTAL PROTEIN 6.6 G/DL (5.7-8.2)
[2024-01-09] MEDS: D5W/LR 1,000 ML IV SCH (08:25)
[2024-01-09] MEDS ORDERED: PANTOPRAZOLE 40MG VIAL IV SCH (09:00)
[2024-01-09] MEDS: FUROSEMIDE 20MG/2ML VIAL IV SCH (09:04)
[2024-01-09] MEDS: ACETAMINOPHEN *IV* 1,000 MG in IV 1 EA IV PRN (10:09)
[2024-01-09] MEDS: METHOCARBAMOL 1,000 MG/10 ML VIAL IV SCH (10:23)
[2024-01-09 15:07] LABS: URINE STREP PNEUMONIAE ANTIGEN NOT DETECTED (NOT DETECT)
[2024-01-10] VITALS: BP 166/79; TEMP 100; O2SAT 93
[2024-01-10 04:00] VITALS: BP 168/88; TEMP 100.6; O2SAT 92
[2024-01-10 06:45] LABS: BASO % 0.4 % (0.0-1.0); EOS # 0.2 10^3/uL (0.0-0.5); EOS % 1.6 % (0.0-3.0); HEMATOCRIT 27.4 % (42.0-52.0); HEMOGLOBIN 9.2 g/dl (13.5-17.5); LYMPH # 1.3 10^3/uL (1.5-5.0); LYMPH % 12.7 % (24.0-44.0); MEAN CORPUSCULAR HEMOGLOBIN 30.7 pg (27.0-33.0); MEAN CORPUSCULAR HGB CONC 33.6 g/dl (32.0-36.5); MEAN CORPUSCULAR VOLUME 91.3 fl (80.0-96.0); MONO # 1.5 10^3/uL (0.0-0.8); MONO % 14.7 % (2.0-8.0); NEUTROPHILS # 6.9 10^3/uL (1.5-8.5); NEUTROPHILS % 70.1 % (36.0-66.0); PLATELET COUNT, AUTOMATED 633 10^3/uL (150-450); WHITE BLOOD COUNT 9.9 10^3/uL (4.0-10.0)
[2024-01-10 07:23] LABS: PROCALCITONIN 0.38 ng/ml
[2024-01-10 07:31] LABS: ALBUMIN 2.2 G/DL (3.2-5.2); ALKALINE PHOSPHATASE 328 U/L (40-129); ALT/SGPT 39 U/L (7.0-40); AST/SGOT 32 U/L (<34); BILIRUBIN,TOTAL 0.3 MG/DL (0.3-1.2); BLOOD UREA NITROGEN 8 MG/DL (9-23); CALCIUM LEVEL 8.3 MG/DL (8.3-10.6); CARBON DIOXIDE LEVEL 29 MMOL/L (20-31); CHLORIDE LEVEL 104 MMOL/L (98-107); GLOMERULAR FILTRATION RATE > 60.0 (>49); GLUCOSE, FASTING 111 MG/DL (74-106); MAGNESIUM LEVEL 1.7 MG/DL (1.8-2.4); POTASSIUM SERUM 3.3 MMOL/L (3.5-5.1); SODIUM LEVEL 141 MMOL/L (136-145); TOTAL PROTEIN 6.3 G/DL (5.7-8.2)
[2024-01-10 08:00] VITALS: BP 155/66; TEMP 100.6; O2SAT 92
[2024-01-10] MEDS ORDERED: KCL 10MEQ/100ML SWI (KRUN) 10 MEQ in IV 1 EA IV SCH (09:00)
[2024-01-10] MEDS: MAG SULF 1GM/100ML (MAG RUN) 1 GM in IV 1 EA IV SCH (10:18)
[2024-01-10 12:00] VITALS: BP 118/62; TEMP 101.1; O2SAT 92
[2024-01-10] MEDS: KCL 20MEQ IN 100ML SWI (KRUN) 20 MEQ in IV 1 EA IV ONE (12:10)
[2024-01-10 16:00] VITALS: BP 133/66; TEMP 100.6; O2SAT 95
[2024-01-10] MEDS: AMINO AC/ELECTROLYTE/DEX/CALC 1,000 ML IV SCH (18:36)
[2024-01-10] MEDS: FAT EMULSION IV 250 ML IV ONE (18:36)
[2024-01-10 20:00] VITALS: BP 121/58; TEMP 100.9; O2SAT 91
[2024-01-10] MEDS: PHENYTOIN 100MG/2ML VIAL IV SCH (20:51)
[2024-01-11] VITALS (11 sets, daily range): BP systolic 115–168; BP diastolic 63–86; TEMP 99.7–104.9; O2SAT 92–97
[2024-01-11 05:50] LABS: ALBUMIN 2.3 G/DL (3.2-5.2); ALKALINE PHOSPHATASE 271 U/L (40-129); ALT/SGPT 35 U/L (7.0-40); AST/SGOT 27 U/L (<34); BILIRUBIN,TOTAL 0.2 MG/DL (0.3-1.2); BLOOD UREA NITROGEN 11 MG/DL (9-23); CALCIUM LEVEL 7.9 MG/DL (8.3-10.6); CARBON DIOXIDE LEVEL 26 MMOL/L (20-31); CHLORIDE LEVEL 108 MMOL/L (98-107); CREATININE FOR GFR 0.45 MG/DL (0.70-1.30); GLOMERULAR FILTRATION RATE > 60.0 (>49); GLUCOSE, FASTING 116 MG/DL (74-106); MAGNESIUM LEVEL 2.2 MG/DL (1.8-2.4); PHOSPHORUS LEVEL 3.3 MG/DL (2.4-5.1); POTASSIUM SERUM 3.6 MMOL/L (3.5-5.1); SODIUM LEVEL 141 MMOL/L (136-145); TOTAL PROTEIN 6.3 G/DL (5.7-8.2)
[2024-01-11] MEDS: FAT EMULSION IV 250 ML IV ONE (18:08)
[2024-01-11] MEDS: MULTIVITAMIN -ADULT INJECTION 10 ML, ZINC/COPPER/MANGANESE/SELENIUM 1 ML in AMINO AC/EL... IV SCH (18:08)
[2024-01-12] VITALS (11 sets, daily range): BP systolic 133–174; BP diastolic 71–93; TEMP 97.2–101.3; O2SAT 90–98
[2024-01-12] MEDS: SODIUM CHLORIDE 0.9% INJ 10 ML SYR IV PRN (14:59)
[2024-01-12] MEDS: PHENYTOIN 100MG/2ML VIAL IV ONE (15:19)
[2024-01-12 15:32] LABS: BASO # 0.1 10^3/uL (0.0-0.2); BASO % 0.7 % (0.0-1.0); EOS # 0.2 10^3/uL (0.0-0.5); EOS % 2.2 % (0.0-3.0); HEMATOCRIT 26.9 % (42.0-52.0); LYMPH # 1.5 10^3/uL (1.5-5.0); LYMPH % 14.9 % (24.0-44.0); MEAN CORPUSCULAR HEMOGLOBIN 30.4 pg (27.0-33.0); MEAN CORPUSCULAR HGB CONC 33.5 g/dl (32.0-36.5); MEAN CORPUSCULAR VOLUME 90.9 fl (80.0-96.0); MONO # 1.6 10^3/uL (0.0-0.8); MONO % 16.1 % (2.0-8.0); NEUTROPHILS # 6.6 10^3/uL (1.5-8.5); NEUTROPHILS % 65.4 % (36.0-66.0); PLATELET COUNT, AUTOMATED 873 10^3/uL (150-450); RED BLOOD COUNT 2.96 10^6/uL (4.30-6.10); WHITE BLOOD COUNT 10.1 10^3/uL (4.0-10.0)
[2024-01-12 15:48] LABS: ERYTHROCYTE SEDIMENTATION RATE 84 mm/hr (0-20)
[2024-01-12 16:02] LABS: ALBUMIN 2.3 G/DL (3.2-5.2); ALKALINE PHOSPHATASE 203 U/L (40-129); ALT/SGPT 30 U/L (7.0-40); AST/SGOT 20 U/L (<34); BILIRUBIN,TOTAL 0.3 MG/DL (0.3-1.2); BLOOD UREA NITROGEN 11 MG/DL (9-23); CALCIUM LEVEL 8.2 MG/DL (8.3-10.6); CARBON DIOXIDE LEVEL 25 MMOL/L (20-31); CHLORIDE LEVEL 108 MMOL/L (98-107); CREATININE FOR GFR 0.39 MG/DL (0.70-1.30); GLOMERULAR FILTRATION RATE > 60.0 (>49); GLUCOSE, FASTING 110 MG/DL (74-106); PHOSPHORUS LEVEL 2.8 MG/DL (2.4-5.1); POTASSIUM SERUM 3.5 MMOL/L (3.5-5.1); SODIUM LEVEL 140 MMOL/L (136-145); TOTAL PROTEIN 6.1 G/DL (5.7-8.2)
[2024-01-12 16:05] LABS: PREALBUMIN 14.1 MG/DL (10.0-40.0)
[2024-01-12 16:09] LABS: PROCALCITONIN 0.19 ng/ml
[2024-01-12] MEDS: FAT EMULSION IV 250 ML IV ONE (18:41)
[2024-01-12] MEDS: AMINO AC/ELECTROLYTE/DEX/CALC 1,000 ML IV SCH (18:41)
[2024-01-12] MEDS: AMPICILLIN SOD/SULBACTAM SOD 1.5 GM in DEXTROSE 5% (D5W) ADV/MINI-BAG 50 ML IV SCH (18:45)
[2024-01-13] VITALS (19 sets, daily range): BP systolic 100–174; BP diastolic 54–88; TEMP 98.1–102; O2SAT 91–99
[2024-01-13 06:41] LABS: BASO # 0.1 10^3/uL (0.0-0.2); BASO % 0.7 % (0.0-1.0); EOS # 0.2 10^3/uL (0.0-0.5); EOS % 2.2 % (0.0-3.0); HEMATOCRIT 27.7 % (42.0-52.0); HEMOGLOBIN 9.2 g/dl (13.5-17.5); LYMPH # 1.3 10^3/uL (1.5-5.0); LYMPH % 13.7 % (24.0-44.0); MEAN CORPUSCULAR HEMOGLOBIN 30.5 pg (27.0-33.0); MEAN CORPUSCULAR HGB CONC 33.2 g/dl (32.0-36.5); MEAN CORPUSCULAR VOLUME 91.7 fl (80.0-96.0); MONO # 1.6 10^3/uL (0.0-0.8); MONO % 16.7 % (2.0-8.0); NEUTROPHILS # 6.2 10^3/uL (1.5-8.5); NEUTROPHILS % 66.2 % (36.0-66.0); PLATELET COUNT, AUTOMATED 961 10^3/uL (150-450); RED BLOOD COUNT 3.02 10^6/uL (4.30-6.10); WHITE BLOOD COUNT 9.4 10^3/uL (4.0-10.0)
[2024-01-13 07:02] LABS: BLOOD UREA NITROGEN 10 MG/DL (9-23); CALCIUM LEVEL 8.2 MG/DL (8.3-10.6); CARBON DIOXIDE LEVEL 26 MMOL/L (20-31); CHLORIDE LEVEL 106 MMOL/L (98-107); GLOMERULAR FILTRATION RATE > 60.0 (>49); GLUCOSE, FASTING 129 MG/DL (74-106); POTASSIUM SERUM 3.6 MMOL/L (3.5-5.1); SODIUM LEVEL 139 MMOL/L (136-145)
[2024-01-13 07:04] LABS: PHENYTOIN (DILANTIN) 4.5 UG/ML (10.0-20.0)
[2024-01-13] MEDS: METOPROLOL 5 MG/5 ML VIAL IV SCH ×2 (08:15→11:00)
[2024-01-13] MEDS ORDERED: NITROGLYCERIN 2% OINT 1 GM *U/D* PKT TOP ONE (08:30)
[2024-01-13] MEDS: FUROSEMIDE 40MG/4ML VIAL IV SCH (09:00)
[2024-01-13] MEDS: PHENYTOIN 100MG/2ML VIAL IV SCH (09:26)
[2024-01-13] MEDS: hydrALAZINE 20MG/ML 1ML VIAL IV SCH (09:29)
[2024-01-13] MEDS: FUROSEMIDE 100MG/10ML VIAL IV ONE (10:44)
[2024-01-13 10:59] LABS: ABG BASE EXCESS 0.5 (-2.0-2.0); ABG HCO3 23.6 MMOL/L (22.0-26.0); ABG O2 SATURATION 88.8 % (95.0-99.0); ABG PARTIAL PRESSURE CO2 32.6 mmHg (35.0-45.0); ABG PARTIAL PRESSURE O2 50.1 mmHg (75.0-100.0); ABG STANDARD HCO3 24.8 MMOL/L. (22.0-26.0); ABG TOTAL CO2 24.6 MMOL/L (23.0-31.0); ABG pH (ARTERIAL) 7.478 UNITS (7.350-7.450)
[2024-01-13] MEDS: ALTEPLASE 2MG/2ML VIAL XX ONE (11:29)
[2024-01-13 12:47] LABS: CK-MB VALUE MASS < 1.0 NG/ML (<3.6)
[2024-01-13 12:48] LABS: CPK CREATINE PHOSPHOKINASE 49 U/L (46-171); MB/CK RELATIVE INDEX 2.04 (< OR =4)
[2024-01-13] MEDS: INSULIN LISPRO (NovoLOG) PER UNIT SC SCH (17:46)
[2024-01-13] MEDS: MULTIVITAMIN -ADULT INJECTION 10 ML, ZINC/COPPER/MANGANESE/SELENIUM 1 ML in AMINO AC/EL... IV SCH (17:47)
[2024-01-13] MEDS: FAT EMULSION IV 250 ML IV ONE (17:47)
[2024-01-13 18:11] LABS: BLOOD UREA NITROGEN 10 MG/DL (9-23); CALCIUM LEVEL 8.2 MG/DL (8.3-10.6); CARBON DIOXIDE LEVEL 28 MMOL/L (20-31); CHLORIDE LEVEL 108 MMOL/L (98-107); CREATININE FOR GFR 0.43 MG/DL (0.70-1.30); GLOMERULAR FILTRATION RATE > 60.0 (>49); GLUCOSE, FASTING 110 MG/DL (74-106); PHOSPHORUS LEVEL 2.5 MG/DL (2.4-5.1); POTASSIUM SERUM 3.8 MMOL/L (3.5-5.1); SODIUM LEVEL 141 MMOL/L (136-145)
[2024-01-13] MEDS: levETIRAcetam INJection 500 MG in DEXTROSE 5% (D5W) MINI-BAG PLU 100 ML IV ONE (22:57)
[2024-01-14] VITALS (13 sets, daily range): BP systolic 102–159; BP diastolic 58–98; TEMP 98.2–100.4; O2SAT 89–96
[2024-01-14 04:31] LABS: BASO # 0.1 10^3/uL (0.0-0.2); BASO % 1.2 % (0.0-1.0); EOS # 0.2 10^3/uL (0.0-0.5); EOS % 1.9 % (0.0-3.0); HEMATOCRIT 27.9 % (42.0-52.0); HEMOGLOBIN 9.2 g/dl (13.5-17.5); LYMPH # 1.4 10^3/uL (1.5-5.0); LYMPH % 14.1 % (24.0-44.0); MEAN CORPUSCULAR HEMOGLOBIN 30.9 pg (27.0-33.0); MEAN CORPUSCULAR VOLUME 93.6 fl (80.0-96.0); MONO # 1.8 10^3/uL (0.0-0.8); MONO % 17.4 % (2.0-8.0); NEUTROPHILS # 6.6 10^3/uL (1.5-8.5); NEUTROPHILS % 64.8 % (36.0-66.0); PLATELET COUNT, AUTOMATED 975 10^3/uL (150-450); RED BLOOD COUNT 2.98 10^6/uL (4.30-6.10); WHITE BLOOD COUNT 10.1 10^3/uL (4.0-10.0)
[2024-01-14 04:48] LABS: BLOOD UREA NITROGEN 10 MG/DL (9-23); CALCIUM LEVEL 8.3 MG/DL (8.3-10.6); CARBON DIOXIDE LEVEL 28 MMOL/L (20-31); CHLORIDE LEVEL 103 MMOL/L (98-107); CREATININE FOR GFR 0.45 MG/DL (0.70-1.30); GLOMERULAR FILTRATION RATE > 60.0 (>49); GLUCOSE, FASTING 120 MG/DL (74-106); POTASSIUM SERUM 3.4 MMOL/L (3.5-5.1); SODIUM LEVEL 138 MMOL/L (136-145)
[2024-01-14 04:50] LABS: PHENYTOIN (DILANTIN) 5.2 UG/ML (10.0-20.0)
[2024-01-14] MEDS: KCL 20MEQ IN 100ML SWI (KRUN) 20 MEQ in IV 1 EA IV ONE (06:12)
[2024-01-14 09:44] LABS: CLOSTRIDIUM DIFFICILE PCR NEGATIVE (NEGATIVE)
[2024-01-14] MEDS: PHENYTOIN 100MG/2ML VIAL IV SCH (10:24)
[2024-01-14] MEDS: IPRATROPIUM 0.5MG/ALBUTEROL 2.5MG INH SOL UD 3ML (DUONEB) NEB SCH (15:17)
[2024-01-14] MEDS: INSULIN LISPRO (NovoLOG) PER UNIT SC SCH (18:17)
[2024-01-14] MEDS: FAT EMULSION IV 250 ML IV ONE (18:18)
[2024-01-14] MEDS: AMINO AC/ELECTROLYTE/DEX/CALC 2,000 ML IV SCH (18:18)
[2024-01-15] VITALS (22 sets, daily range): BP systolic 93–157; BP diastolic 52–83; TEMP 99.1–101.8; O2SAT 90–97
[2024-01-15 06:37] LABS: BASO # 0.2 10^3/uL (0.0-0.2); BASO % 1.8 % (0.0-1.0); EOS # 0.6 10^3/uL (0.0-0.5); HEMATOCRIT 27.6 % (42.0-52.0); HEMOGLOBIN 9.3 g/dl (13.5-17.5); LYMPH # 1.9 10^3/uL (1.5-5.0); LYMPH % 19.8 % (24.0-44.0); MEAN CORPUSCULAR HGB CONC 33.7 g/dl (32.0-36.5); MONO # 1.7 10^3/uL (0.0-0.8); MONO % 17.9 % (2.0-8.0); NEUTROPHILS # 5.1 10^3/uL (1.5-8.5); WHITE BLOOD COUNT 9.5 10^3/uL (4.0-10.0)
[2024-01-15 06:42] LABS: PLATELET COUNT, AUTOMATED 1081 10^3/uL (150-450)
[2024-01-15 07:06] LABS: BLOOD UREA NITROGEN 11 MG/DL (9-23); CALCIUM LEVEL 8.4 MG/DL (8.3-10.6); CARBON DIOXIDE LEVEL 27 MMOL/L (20-31); CHLORIDE LEVEL 105 MMOL/L (98-107); CREATININE FOR GFR 0.46 MG/DL (0.70-1.30); GLOMERULAR FILTRATION RATE > 60.0 (>49); GLUCOSE, FASTING 98 MG/DL (74-106); MAGNESIUM LEVEL 1.8 MG/DL (1.8-2.4); PHOSPHORUS LEVEL 3.7 MG/DL (2.4-5.1); POTASSIUM SERUM 3.5 MMOL/L (3.5-5.1); SODIUM LEVEL 138 MMOL/L (136-145)
[2024-01-15] MEDS: PHENYTOIN INJection 1,000 MG in NS 100 ML IV ONE (10:45)
[2024-01-15 12:11] LABS: PROLACTIN 13.19 NG/ML (2.1-17.7)
[2024-01-15] MEDS: INSULIN LISPRO (NovoLOG) PER UNIT SC SCH (17:06)
[2024-01-15] MEDS: FAT EMULSION IV 250 ML IV ONE (18:30)
[2024-01-15] MEDS: MULTIVITAMIN -ADULT INJECTION 10 ML, ZINC/COPPER/MANGANESE/SELENIUM 1 ML in AMINO AC/EL... IV SCH (18:31)
[2024-01-15 18:32] LABS: ABG BASE EXCESS 3.9 (-2.0-2.0); ABG HCO3 26.8 MMOL/L (22.0-26.0); ABG O2 SATURATION 97.2 % (95.0-99.0); ABG PARTIAL PRESSURE CO2 34.4 mmHg (35.0-45.0); ABG PARTIAL PRESSURE O2 85.6 mmHg (75.0-100.0); ABG STANDARD HCO3 27.9 MMOL/L. (22.0-26.0); ABG TOTAL CO2 27.9 MMOL/L (23.0-31.0)
[2024-01-15 20:50] LABS: CK-MB VALUE MASS < 1.0 NG/ML (<3.6)
[2024-01-15 20:52] LABS: CPK CREATINE PHOSPHOKINASE 49 U/L (46-171); MB/CK RELATIVE INDEX 2.04 (< OR =4)
[2024-01-15 20:55] LABS: ABG BASE EXCESS 0.9 (-2.0-2.0); ABG HCO3 23.3 MMOL/L (22.0-26.0); ABG O2 SATURATION 98.6 % (95.0-99.0); ABG PARTIAL PRESSURE O2 130.6 mmHg (75.0-100.0); ABG STANDARD HCO3 25.3 MMOL/L. (22.0-26.0); ABG TOTAL CO2 24.3 MMOL/L (23.0-31.0); ABG pH (ARTERIAL) 7.509 UNITS (7.350-7.450)
[2024-01-15 20:59] LABS: PROCALCITONIN 0.13 ng/ml
[2024-01-15] MEDS ORDERED: PHENYTOIN 100MG/2ML VIAL IV SCH (21:00)
[2024-01-16] VITALS (20 sets, daily range): BP systolic 119–156; BP diastolic 62–77; TEMP 99.2–101.1; O2SAT 93–100
[2024-01-16 06:32] LABS: BLOOD UREA NITROGEN 12 MG/DL (9-23); CALCIUM LEVEL 8.3 MG/DL (8.3-10.6); CARBON DIOXIDE LEVEL 28 MMOL/L (20-31); CHLORIDE LEVEL 101 MMOL/L (98-107); CREATININE FOR GFR 0.47 MG/DL (0.70-1.30); GLOMERULAR FILTRATION RATE > 60.0 (>49); GLUCOSE, FASTING 118 MG/DL (74-106); MAGNESIUM LEVEL 1.8 MG/DL (1.8-2.4); PHOSPHORUS LEVEL 3.9 MG/DL (2.4-5.1); POTASSIUM SERUM 3.5 MMOL/L (3.5-5.1); SODIUM LEVEL 137 MMOL/L (136-145)
[2024-01-16 07:16] LABS: BASO # 0.2 10^3/uL (0.0-0.2); BASO % 1.6 % (0.0-1.0); EOS # 0.3 10^3/uL (0.0-0.5); EOS % 3.3 % (0.0-3.0); HEMATOCRIT 27.4 % (42.0-52.0); LYMPH # 1.9 10^3/uL (1.5-5.0); LYMPH % 19.5 % (24.0-44.0); MEAN CORPUSCULAR HEMOGLOBIN 30.5 pg (27.0-33.0); MEAN CORPUSCULAR HGB CONC 32.8 g/dl (32.0-36.5); MEAN CORPUSCULAR VOLUME 92.9 fl (80.0-96.0); MONO # 1.9 10^3/uL (0.0-0.8); MONO % 19.1 % (2.0-8.0); NEUTROPHILS # 5.6 10^3/uL (1.5-8.5); NEUTROPHILS % 56.1 % (36.0-66.0); RED BLOOD COUNT 2.95 10^6/uL (4.30-6.10)
[2024-01-16 07:22] LABS: PLATELET COUNT, AUTOMATED 1113 10^3/uL (150-450)
[2024-01-16] MEDS: metroNIDAZOLE 500 MG in IV 1 EA IV SCH (10:15)
[2024-01-16] MEDS: PHENYTOIN 100MG/2ML VIAL IV SCH (10:15)
[2024-01-16] MEDS: ACETAMINOPHEN *IV* 1,000 MG in IV 1 EA IV ONE (16:15)
[2024-01-16] MEDS: AMINO AC/ELECTROLYTE/DEX/CALC 1,000 ML IV SCH (18:38)
[2024-01-16] MEDS: FAT EMULSION IV 250 ML IV ONE (18:38)
[2024-01-16] MEDS: INSULIN LISPRO (NovoLOG) PER UNIT SC SCH (18:48)
[2024-01-17] VITALS (19 sets, daily range): BP systolic 102–142; BP diastolic 56–71; TEMP 98.5–99.9; O2SAT 95–99
[2024-01-17 06:37] LABS: BASO # 0.2 10^3/uL (0.0-0.2); BASO % 1.5 % (0.0-1.0); EOS # 0.6 10^3/uL (0.0-0.5); EOS % 5.6 % (0.0-3.0); HEMATOCRIT 28.2 % (42.0-52.0); HEMOGLOBIN 9.4 g/dl (13.5-17.5); LYMPH # 1.8 10^3/uL (1.5-5.0); LYMPH % 17.7 % (24.0-44.0); MEAN CORPUSCULAR HGB CONC 33.3 g/dl (32.0-36.5); MEAN CORPUSCULAR VOLUME 93.1 fl (80.0-96.0); MONO # 1.9 10^3/uL (0.0-0.8); MONO % 18.6 % (2.0-8.0); NEUTROPHILS # 5.6 10^3/uL (1.5-8.5); NEUTROPHILS % 56.1 % (36.0-66.0); PLATELET COUNT, AUTOMATED 1057 10^3/uL (150-450); RED BLOOD COUNT 3.03 10^6/uL (4.30-6.10)
[2024-01-17 07:06] LABS: BLOOD UREA NITROGEN 11 MG/DL (9-23); CALCIUM LEVEL 8.6 MG/DL (8.3-10.6); CARBON DIOXIDE LEVEL 29 MMOL/L (20-31); CHLORIDE LEVEL 101 MMOL/L (98-107); CREATININE FOR GFR 0.49 MG/DL (0.70-1.30); GLOMERULAR FILTRATION RATE > 60.0 (>49); GLUCOSE, FASTING 110 MG/DL (74-106); POTASSIUM SERUM 3.2 MMOL/L (3.5-5.1); SODIUM LEVEL 137 MMOL/L (136-145)
[2024-01-17] MEDS ORDERED: PIPERACILLIN/TAZOBACTAM SOD 4.5 GM in DEXTROSE 5% (D5W) ADV/MINI-BAG 50 ML IV SCH (09:05)
[2024-01-17] MEDS: KCL 20MEQ IN 100ML SWI (KRUN) 20 MEQ in IV 1 EA IV ONE (10:02)
[2024-01-17] MEDS: PIPERACILLIN/TAZOBACTAM SOD 4.5 GM in DEXTROSE 5% (D5W) ADV/MINI-BAG 50 ML IV SCH (12:46)
[2024-01-17] MEDS: INSULIN LISPRO (NovoLOG) PER UNIT SC SCH (18:15)
[2024-01-17] MEDS: FAT EMULSION IV 250 ML IV ONE (18:16)
[2024-01-17] MEDS: AMINO AC/ELECTROLYTE/DEX/CALC 1,000 ML IV SCH (18:16)
[2024-01-18] VITALS (22 sets, daily range): BP systolic 116–152; BP diastolic 57–71; TEMP 98.2–101.8; O2SAT 91–99
[2024-01-18 06:38] LABS: BASO # 0.2 10^3/uL (0.0-0.2); BASO % 1.5 % (0.0-1.0); EOS # 0.4 10^3/uL (0.0-0.5); EOS % 3.4 % (0.0-3.0); HEMATOCRIT 28.7 % (42.0-52.0); HEMOGLOBIN 9.4 g/dl (13.5-17.5); LYMPH # 1.9 10^3/uL (1.5-5.0); MEAN CORPUSCULAR HEMOGLOBIN 30.2 pg (27.0-33.0); MEAN CORPUSCULAR HGB CONC 32.8 g/dl (32.0-36.5); MEAN CORPUSCULAR VOLUME 92.3 fl (80.0-96.0); NEUTROPHILS # 5.9 10^3/uL (1.5-8.5); NEUTROPHILS % 57.4 % (36.0-66.0); RED BLOOD COUNT 3.11 10^6/uL (4.30-6.10); WHITE BLOOD COUNT 10.3 10^3/uL (4.0-10.0)
[2024-01-18 06:41] LABS: PLATELET COUNT, AUTOMATED 1027 10^3/uL (150-450)
[2024-01-18 07:05] LABS: BLOOD UREA NITROGEN 14 MG/DL (9-23); CALCIUM LEVEL 8.9 MG/DL (8.3-10.6); CARBON DIOXIDE LEVEL 30 MMOL/L (20-31); CHLORIDE LEVEL 99 MMOL/L (98-107); CREATININE FOR GFR 0.53 MG/DL (0.70-1.30); GLOMERULAR FILTRATION RATE > 60.0 (>49); GLUCOSE, FASTING 118 MG/DL (74-106); POTASSIUM SERUM 3.3 MMOL/L (3.5-5.1); SODIUM LEVEL 137 MMOL/L (136-145)
[2024-01-18] MEDS: KCL 20MEQ IN 100ML SWI (KRUN) 20 MEQ in IV 1 EA IV ONE (11:26)
[2024-01-18 16:08] LABS: PHENYTOIN,FREE 0.9 ug/mL (1.0-2.0); PHENYTOIN,TOTAL 8.6 ug/mL (10.0-20.0)
[2024-01-18] MEDS: FAT EMULSION IV 250 ML IV ONE (18:28)
[2024-01-18] MEDS: AMINO AC/ELECTROLYTE/DEX/CALC 2,000 ML IV SCH (18:28)
[2024-01-18] MEDS: INSULIN LISPRO (NovoLOG) PER UNIT SC SCH (18:45)
[2024-01-19] VITALS (24 sets, daily range): BP systolic 119–149; BP diastolic 58–72; TEMP 98.4–100.5; O2SAT 93–99
[2024-01-19 06:13] LABS: BASO # 0.1 10^3/uL (0.0-0.2); BASO % 0.9 % (0.0-1.0); EOS # 0.2 10^3/uL (0.0-0.5); EOS % 1.7 % (0.0-3.0); HEMATOCRIT 27.4 % (42.0-52.0); HEMOGLOBIN 9.2 g/dl (13.5-17.5); LYMPH # 1.8 10^3/uL (1.5-5.0); LYMPH % 16.7 % (24.0-44.0); MEAN CORPUSCULAR HEMOGLOBIN 30.9 pg (27.0-33.0); MEAN CORPUSCULAR HGB CONC 33.6 g/dl (32.0-36.5); MEAN CORPUSCULAR VOLUME 91.9 fl (80.0-96.0); MONO # 2.1 10^3/uL (0.0-0.8); MONO % 19.8 % (2.0-8.0); NEUTROPHILS # 6.5 10^3/uL (1.5-8.5); NEUTROPHILS % 60.3 % (36.0-66.0); PLATELET COUNT, AUTOMATED 934 10^3/uL (150-450); RED BLOOD COUNT 2.98 10^6/uL (4.30-6.10); WHITE BLOOD COUNT 10.8 10^3/uL (4.0-10.0)
[2024-01-19 06:45] LABS: BLOOD UREA NITROGEN 15 MG/DL (9-23); CALCIUM LEVEL 8.5 MG/DL (8.3-10.6); CARBON DIOXIDE LEVEL 30 MMOL/L (20-31); CHLORIDE LEVEL 98 MMOL/L (98-107); CREATININE FOR GFR 0.58 MG/DL (0.70-1.30); GLOMERULAR FILTRATION RATE > 60.0 (>49); GLUCOSE, FASTING 156 MG/DL (74-106); POTASSIUM SERUM 2.9 MMOL/L (3.5-5.1); SODIUM LEVEL 137 MMOL/L (136-145)
[2024-01-19] MEDS: KCL 10MEQ/100ML SWI (KRUN) 10 MEQ in IV 1 EA IV SCH (07:31)
[2024-01-19] MEDS ORDERED: AMINO AC/ELECTROLYTE/DEX/CALC 1,000 ML IV SCH (12:35)
[2024-01-19] MEDS: AMINO AC/ELECTROLYTE/DEX/CALC 1,000 ML IV SCH (18:27)
[2024-01-19] MEDS: FAT EMULSION IV 250 ML IV ONE (18:27)
[2024-01-20] VITALS (18 sets, daily range): BP systolic 113–147; BP diastolic 62–78; TEMP 98.3–99.7; O2SAT 88–98
[2024-01-20 09:32] LABS: HEMATOCRIT 30.9 % (42.0-52.0); HEMOGLOBIN 10.1 g/dl (13.5-17.5); MEAN CORPUSCULAR HEMOGLOBIN 30.4 pg (27.0-33.0); MEAN CORPUSCULAR HGB CONC 32.7 g/dl (32.0-36.5); MEAN CORPUSCULAR VOLUME 93.1 fl (80.0-96.0); PLATELET COUNT, AUTOMATED 968 10^3/uL (150-450); RED BLOOD COUNT 3.32 10^6/uL (4.30-6.10); WHITE BLOOD COUNT 11.7 10^3/uL (4.0-10.0)
[2024-01-20 10:03] LABS: ALBUMIN 2.3 G/DL (3.2-5.2); ALKALINE PHOSPHATASE 123 U/L (40-129); ALT/SGPT 28 U/L (7.0-40); AST/SGOT 16 U/L (<34); BILIRUBIN,TOTAL 0.3 MG/DL (0.3-1.2); BLOOD UREA NITROGEN 22 MG/DL (9-23); CARBON DIOXIDE LEVEL 30 MMOL/L (20-31); CHLORIDE LEVEL 98 MMOL/L (98-107); GLOMERULAR FILTRATION RATE > 60.0 (>49); GLUCOSE, FASTING 195 MG/DL (74-106); MAGNESIUM LEVEL 2.1 MG/DL (1.8-2.4); PHOSPHORUS LEVEL 3.1 MG/DL (2.4-5.1); POTASSIUM SERUM 2.7 MMOL/L (3.5-5.1); SODIUM LEVEL 135 MMOL/L (136-145); TOTAL PROTEIN 7.1 G/DL (5.7-8.2)
[2024-01-20] MEDS: POTASSIUM CHLORIDE 10% LIQ 20MEQ/15ML UDC PO SCH (10:32)
[2024-01-20] MEDS: KCL 10MEQ/100ML SWI (KRUN) 10 MEQ in IV 1 EA IV SCH ×2 (11:09→14:27)
[2024-01-20] MEDS ORDERED: ONDANSETRON 4MG 2ML VIAL IV PRN (13:35)
[2024-01-20] MEDS: FAT EMULSION IV 250 ML IV ONE (19:56)
[2024-01-20] MEDS: AMINO AC/ELECTROLYTE/DEX/CALC 1,000 ML IV SCH (19:56)
[2024-01-20] MEDS: INSULIN LISPRO (NovoLOG) PER UNIT SC SCH (20:30)
[2024-01-21 03:38] VITALS: BP 134/74; TEMP 97.8; O2SAT 95
[2024-01-21 05:26] LABS: BLOOD UREA NITROGEN 18 MG/DL (9-23); CALCIUM LEVEL 8.8 MG/DL (8.3-10.6); CARBON DIOXIDE LEVEL 28 MMOL/L (20-31); CHLORIDE LEVEL 99 MMOL/L (98-107); CREATININE FOR GFR 0.65 MG/DL (0.70-1.30); GLOMERULAR FILTRATION RATE > 60.0 (>49); GLUCOSE, FASTING 125 MG/DL (74-106); MAGNESIUM LEVEL 1.9 MG/DL (1.8-2.4); POTASSIUM SERUM 3.1 MMOL/L (3.5-5.1); SODIUM LEVEL 138 MMOL/L (136-145)
[2024-01-21] MEDS: KCL 20MEQ IN 100ML SWI (KRUN) 20 MEQ in IV 1 EA IV SCH (06:58)
[2024-01-21 08:58] LABS: HEMATOCRIT 30.1 % (42.0-52.0); HEMOGLOBIN 10.1 g/dl (13.5-17.5); MEAN CORPUSCULAR HEMOGLOBIN 31.1 pg (27.0-33.0); MEAN CORPUSCULAR HGB CONC 33.6 g/dl (32.0-36.5); MEAN CORPUSCULAR VOLUME 92.6 fl (80.0-96.0); PLATELET COUNT, AUTOMATED 945 10^3/uL (150-450); RED BLOOD COUNT 3.25 10^6/uL (4.30-6.10); WHITE BLOOD COUNT 12.8 10^3/uL (4.0-10.0)
[2024-01-21] MEDS ORDERED: FUROSEMIDE 20MG/2ML VIAL IV SCH (09:00)
[2024-01-21 12:00] VITALS: BP 150/77; TEMP 97.5; O2SAT 93
[2024-01-21 16:11] VITALS: BP 137/74; TEMP 98.7; O2SAT 97
[2024-01-21] MEDS ORDERED: GLUCAGON INJ 1MG VIAL SC PRN (19:10)
[2024-01-21] MEDS ORDERED: DEXTROSE 50% 50ML SYRINGE IV PRN (19:10)
[2024-01-21] MEDS ORDERED: GLUCOSE 4 GM CHEW PO PRN (19:10)
[2024-01-21] MEDS: INSULIN LISPRO (NovoLOG) PER UNIT SC SCH (19:53)
[2024-01-21] MEDS: FAT EMULSION IV 250 ML IV ONE (19:53)
[2024-01-21] MEDS: AMINO AC/ELECTROLYTE/DEX/CALC 2,000 ML IV SCH (19:53)
[2024-01-21 20:12] VITALS: BP 134/83; TEMP 98.2; O2SAT 94
[2024-01-21] MEDS: KCL 20MEQ IN 100ML SWI (KRUN) 20 MEQ in IV 1 EA IV ONE (20:49)
[2024-01-22 03:48] VITALS: BP 157/80; TEMP 98.4; O2SAT 97
[2024-01-22 05:16] LABS: BLOOD UREA NITROGEN 15 MG/DL (9-23); CARBON DIOXIDE LEVEL 26 MMOL/L (20-31); CHLORIDE LEVEL 100 MMOL/L (98-107); CREATININE FOR GFR 0.53 MG/DL (0.70-1.30); GLOMERULAR FILTRATION RATE > 60.0 (>49); GLUCOSE, FASTING 109 MG/DL (74-106); PHOSPHORUS LEVEL 3.4 MG/DL (2.4-5.1); POTASSIUM SERUM 3.8 MMOL/L (3.5-5.1); SODIUM LEVEL 135 MMOL/L (136-145)
[2024-01-22 08:00] VITALS: BP 156/83; TEMP 98.8; O2SAT 95
[2024-01-22 11:05] LABS: PHENYTOIN (DILANTIN) 19.6 UG/ML (10.0-20.0)
[2024-01-22 11:08] LABS: BASO # 0.1 10^3/uL (0.0-0.2); BASO % 1.4 % (0.0-1.0); EOS # 0.3 10^3/uL (0.0-0.5); EOS % 2.5 % (0.0-3.0); HEMATOCRIT 31.1 % (42.0-52.0); HEMOGLOBIN 10.1 g/dl (13.5-17.5); LYMPH # 2.5 10^3/uL (1.5-5.0); LYMPH % 24.3 % (24.0-44.0); MEAN CORPUSCULAR HEMOGLOBIN 30.3 pg (27.0-33.0); MEAN CORPUSCULAR HGB CONC 32.5 g/dl (32.0-36.5); MEAN CORPUSCULAR VOLUME 93.4 fl (80.0-96.0); MONO # 1.6 10^3/uL (0.0-0.8); MONO % 15.7 % (2.0-8.0); NEUTROPHILS # 5.7 10^3/uL (1.5-8.5); NEUTROPHILS % 55.3 % (36.0-66.0); PLATELET COUNT, AUTOMATED 887 10^3/uL (150-450); RED BLOOD COUNT 3.33 10^6/uL (4.30-6.10); WHITE BLOOD COUNT 10.2 10^3/uL (4.0-10.0)
[2024-01-22 12:00] VITALS: BP 160/80; TEMP 97.9; O2SAT 93
[2024-01-22 15:54] VITALS: BP 163/74; TEMP 98.9; O2SAT 93
[2024-01-22] MEDS: FAT EMULSION IV 250 ML IV ONE (18:13)
[2024-01-22] MEDS: MULTIVITAMIN -ADULT INJECTION 10 ML, ZINC/COPPER/MANGANESE/SELENIUM 1 ML in AMINO AC/EL... IV SCH (18:13)
[2024-01-22 21:08] VITALS: BP 138/72; TEMP 98.5; O2SAT 92
[2024-01-22 23:47] VITALS: BP 126/67; TEMP 101; O2SAT 95
[2024-01-23 00:28] VITALS: TEMP 101.2
[2024-01-23 02:36] VITALS: TEMP 100.1
[2024-01-23 04:18] VITALS: BP 121/83; TEMP 99.5; O2SAT 94
[2024-01-23 07:55] VITALS: BP 158/72; TEMP 98.6; O2SAT 93
[2024-01-23 11:33] LABS: BLOOD UREA NITROGEN 14 MG/DL (9-23); CARBON DIOXIDE LEVEL 24 MMOL/L (20-31); CHLORIDE LEVEL 100 MMOL/L (98-107); CREATININE FOR GFR 0.45 MG/DL (0.70-1.30); GLOMERULAR FILTRATION RATE > 60.0 (>49); GLUCOSE, FASTING 127 MG/DL (74-106); MAGNESIUM LEVEL 2.1 MG/DL (1.8-2.4); PHOSPHORUS LEVEL 3.8 MG/DL (2.4-5.1); POTASSIUM SERUM 3.7 MMOL/L (3.5-5.1); SODIUM LEVEL 133 MMOL/L (136-145)
[2024-01-23 16:13] VITALS: BP 117/71; TEMP 98.5; O2SAT 95
[2024-01-23] MEDS: AMINO AC/ELECTROLYTE/DEX/CALC 1,000 ML IV SCH (17:10)
[2024-01-23] MEDS: FAT EMULSION IV 250 ML IV ONE (17:10)
[2024-01-23 19:50] VITALS: BP 128/58; TEMP 98.6; O2SAT 96
[2024-01-24 03:35] VITALS: BP 160/70; TEMP 98; O2SAT 96
[2024-01-24] MEDS ORDERED: fentaNYL 100 MCG/2 ML INJECTION IV PRN (07:30)
[2024-01-24] MEDS ORDERED: ONDANSETRON 4MG 2ML VIAL IV PRN (07:30)
[2024-01-24] MEDS ORDERED: HYDROMORPHONE HCL 0.5 MG/ 0.5 ML SYRINGE IV PRN (07:30)
[2024-01-24] MEDS ORDERED: MEPERIDINE 25 MG/ML 1ML VIAL IV PRN (07:30)
[2024-01-24] MEDS ORDERED: oxyCODONE 5MG TAB PO PRN (07:30)
[2024-01-24] MEDS ORDERED: fentaNYL 100 MCG/2 ML INJECTION As Ordered ONE (07:49)
[2024-01-24] MEDS ORDERED: propofoL 200 MG/20 ML VIAL As Ordered ONE (07:49)
[2024-01-24] MEDS ORDERED: LIDOCAINE 2% 100MG/5ML SDV (FOR ANES.) As Ordered ONE (07:49)
[2024-01-24] MEDS: LIDOCAINE 1% MDV 20ML VIAL SC ONE (08:32)
[2024-01-24] MEDS: ceFAZolin 2 GM/D5W 50 ML IV BAG As Ordered ONE (08:38)
[2024-01-24 09:34] VITALS: BP 127/73; TEMP 98.4; O2SAT 94
[2024-01-24 10:02] VITALS: BP 128/69; TEMP 97.8; O2SAT 94
[2024-01-24 10:35] VITALS: BP 129/73; TEMP 97.9; O2SAT 95
[2024-01-24 10:48] LABS: BLOOD UREA NITROGEN 13 MG/DL (9-23); CALCIUM LEVEL 8.3 MG/DL (8.3-10.6); CARBON DIOXIDE LEVEL 23 MMOL/L (20-31); CHLORIDE LEVEL 102 MMOL/L (98-107); CREATININE FOR GFR 0.44 MG/DL (0.70-1.30); GLOMERULAR FILTRATION RATE > 60.0 (>49); GLUCOSE, FASTING 133 MG/DL (74-106); MAGNESIUM LEVEL 1.9 MG/DL (1.8-2.4); PHOSPHORUS LEVEL 3.3 MG/DL (2.4-5.1); POTASSIUM SERUM 3.9 MMOL/L (3.5-5.1); SODIUM LEVEL 133 MMOL/L (136-145)
[2024-01-24 16:16] VITALS: BP 125/76; TEMP 98.6; O2SAT 94
[2024-01-24] MEDS: AMINO AC/ELECTROLYTE/DEX/CALC 1,000 ML IV SCH (17:11)
[2024-01-24] MEDS: FAT EMULSION IV 250 ML IV ONE (17:11)
[2024-01-24 19:59] VITALS: BP 131/71; TEMP 98.2; O2SAT 94
[2024-01-25 04:05] VITALS: BP 144/79; TEMP 98.5; O2SAT 95
[2024-01-25 07:37] VITALS: BP 122/71; TEMP 98; O2SAT 97
[2024-01-25 15:55] VITALS: BP 138/78; TEMP 97.7; O2SAT 96
[2024-01-25 17:07] LABS: PHENYTOIN,FREE 2.5 ug/mL (1.0-2.0); PHENYTOIN,TOTAL 17.5 ug/mL (10.0-20.0)
[2024-01-25 19:57] VITALS: BP 144/93; TEMP 98.7; O2SAT 96
[2024-01-25] MEDS ORDERED: ONDANSETRON 4MG 2ML VIAL As Ordered ONE (22:17)
[2024-01-25] MEDS ORDERED: ROCURONIUM BROMIDE 50MG/5ML VIAL As Ordered ONE (22:17)
[2024-01-25] MEDS ORDERED: SUCCINYLCHOLINE 100MG/5ML SYRINGE As Ordered ONE (22:17)
[2024-01-25] MEDS ORDERED: ETOMIDATE INJ 20MG/10ML VIAL As Ordered ONE (22:47)
[2024-01-25] MEDS ORDERED: PHENYLephrine 500MCG 5ML (100MCG/ML) SYRINGE As Ordered ONE (23:03)
[2024-01-25] MEDS ORDERED: fentaNYL 100 MCG/2 ML INJECTION IV PRN (23:20)
[2024-01-25] MEDS ORDERED: ONDANSETRON 4MG 2ML VIAL IV PRN (23:20)
[2024-01-26] VITALS (13 sets, daily range): BP systolic 124–168; BP diastolic 58–92; TEMP 97.2–99.8; O2SAT 92–100
[2024-01-26 09:12] LABS: HEMATOCRIT 31.8 % (42.0-52.0); HEMOGLOBIN 10.9 g/dl (13.5-17.5); MEAN CORPUSCULAR HEMOGLOBIN 31.6 pg (27.0-33.0); MEAN CORPUSCULAR HGB CONC 34.3 g/dl (32.0-36.5); MEAN CORPUSCULAR VOLUME 92.2 fl (80.0-96.0); PLATELET COUNT, AUTOMATED 582 10^3/uL (150-450); RED BLOOD COUNT 3.45 10^6/uL (4.30-6.10); WHITE BLOOD COUNT 16.3 10^3/uL (4.0-10.0)
[2024-01-26 09:41] LABS: BLOOD UREA NITROGEN 8 MG/DL (9-23); CALCIUM LEVEL 8.2 MG/DL (8.3-10.6); CARBON DIOXIDE LEVEL 20 MMOL/L (20-31); CHLORIDE LEVEL 104 MMOL/L (98-107); CREATININE FOR GFR 0.45 MG/DL (0.70-1.30); GLOMERULAR FILTRATION RATE > 60.0 (>49); GLUCOSE, FASTING 115 MG/DL (74-106); POTASSIUM SERUM 4.4 MMOL/L (3.5-5.1); SODIUM LEVEL 134 MMOL/L (136-145)
[2024-01-27] VITALS (7 sets, daily range): BP systolic 142–178; BP diastolic 71–90; TEMP 97.3–98.1; O2SAT 96–98
[2024-01-27 05:07] LABS: HEMATOCRIT 31.9 % (42.0-52.0); HEMOGLOBIN 10.8 g/dl (13.5-17.5); MEAN CORPUSCULAR HEMOGLOBIN 31.3 pg (27.0-33.0); MEAN CORPUSCULAR HGB CONC 33.9 g/dl (32.0-36.5); MEAN CORPUSCULAR VOLUME 92.5 fl (80.0-96.0); PLATELET COUNT, AUTOMATED 506 10^3/uL (150-450); RED BLOOD COUNT 3.45 10^6/uL (4.30-6.10); WHITE BLOOD COUNT 10.4 10^3/uL (4.0-10.0)
[2024-01-27 05:31] LABS: BLOOD UREA NITROGEN 7 MG/DL (9-23); CALCIUM LEVEL 7.9 MG/DL (8.3-10.6); CARBON DIOXIDE LEVEL 22 MMOL/L (20-31); CHLORIDE LEVEL 104 MMOL/L (98-107); CREATININE FOR GFR 0.41 MG/DL (0.70-1.30); GLOMERULAR FILTRATION RATE > 60.0 (>49); GLUCOSE, FASTING 119 MG/DL (74-106); POTASSIUM SERUM 4.3 MMOL/L (3.5-5.1); SODIUM LEVEL 134 MMOL/L (136-145)
[2024-01-27] MEDS: FUROSEMIDE 20 MG TAB GT SCH (15:29)
[2024-01-27] MEDS: SENNA 8.6 MG TAB (SENOKOT) PEG SCH (18:45)
[2024-01-28 03:45] VITALS: BP 170/86; TEMP 98; O2SAT 98
[2024-01-28 08:47] LABS: HEMOGLOBIN 10.7 g/dl (13.5-17.5); MEAN CORPUSCULAR HEMOGLOBIN 30.8 pg (27.0-33.0); MEAN CORPUSCULAR HGB CONC 33.4 g/dl (32.0-36.5); MEAN CORPUSCULAR VOLUME 92.2 fl (80.0-96.0); PLATELET COUNT, AUTOMATED 516 10^3/uL (150-450); RED BLOOD COUNT 3.47 10^6/uL (4.30-6.10)
[2024-01-28 09:09] VITALS: BP 140/93; TEMP 97.6; O2SAT 93
[2024-01-28 09:12] LABS: BLOOD UREA NITROGEN 8 MG/DL (9-23); CALCIUM LEVEL 8.6 MG/DL (8.3-10.6); CARBON DIOXIDE LEVEL 24 MMOL/L (20-31); CHLORIDE LEVEL 103 MMOL/L (98-107); CREATININE FOR GFR 0.34 MG/DL (0.70-1.30); GLOMERULAR FILTRATION RATE > 60.0 (>49); GLUCOSE, FASTING 131 MG/DL (74-106); POTASSIUM SERUM 4.4 MMOL/L (3.5-5.1); SODIUM LEVEL 134 MMOL/L (136-145)
[2024-01-28] MEDS: MIRALAX *UNIT DOSE* 17GM PACKET PEG SCH (09:25)
[2024-01-28] MEDS ORDERED: FLEET ENEMA PR PRN (12:55)
[2024-01-28] MEDS: BISACODYL 10MG SUPP PR SCH (14:30)
[2024-01-28 16:15] VITALS: BP 145/80; TEMP 97.8; O2SAT 96
[2024-01-28] MEDS: levETIRAcetam ORAL SOLUTION 500MG/5ML UDC PEG SCH (19:00)
[2024-01-28 19:31] VITALS: BP 157/92; TEMP 98.1; O2SAT 95
[2024-01-28] MEDS ORDERED: IBUPROFEN 100MG 5ML SUSP UDC DYE FREE PEG PRN (22:00)
[2024-01-28] MEDS ORDERED: ACETAMINOPHEN 325 MG TAB PEG PRN (22:00)
[2024-01-28] MEDS: PHENYTOIN 125MG/5ML SUSP ORAL SYRINGE *DRAW UP EXACT DOSE PEG SCH (22:11)
[2024-01-28] MEDS: PHENobarbital ELIX 20 MG/5 ML UD PEG SCH (22:11)
[2024-01-28 22:30] VITALS: O2SAT 96
[2024-01-28 23:37] VITALS: BP 151/88; TEMP 98.1; O2SAT 99
[2024-01-29 04:07] VITALS: BP 149/91; TEMP 97.7; O2SAT 99
[2024-01-29 06:21] LABS: HEMATOCRIT 34.9 % (42.0-52.0); HEMOGLOBIN 11.3 g/dl (13.5-17.5); MEAN CORPUSCULAR HEMOGLOBIN 30.9 pg (27.0-33.0); MEAN CORPUSCULAR HGB CONC 32.4 g/dl (32.0-36.5); MEAN CORPUSCULAR VOLUME 95.4 fl (80.0-96.0); PLATELET COUNT, AUTOMATED 538 10^3/uL (150-450); RED BLOOD COUNT 3.66 10^6/uL (4.30-6.10); WHITE BLOOD COUNT 10.1 10^3/uL (4.0-10.0)
[2024-01-29 06:43] LABS: BLOOD UREA NITROGEN 11 MG/DL (9-23); CALCIUM LEVEL 8.7 MG/DL (8.3-10.6); CARBON DIOXIDE LEVEL 26 MMOL/L (20-31); CHLORIDE LEVEL 100 MMOL/L (98-107); CREATININE FOR GFR 0.42 MG/DL (0.70-1.30); GLOMERULAR FILTRATION RATE > 60.0 (>49); GLUCOSE, FASTING 87 MG/DL (74-106); POTASSIUM SERUM 5.1 MMOL/L (3.5-5.1); SODIUM LEVEL 135 MMOL/L (136-145)
[2024-01-29 07:57] VITALS: BP 146/85; TEMP 98.1; O2SAT 98
[2024-01-29] MEDS: PANTOPRAZOLE 40MG TAB (PROTONIX) PO SCH (09:45)
[2024-01-29] MEDS ORDERED: LANS30CA93 PEG (15:33)
[2024-01-29] MEDS ORDERED: [UNRECOGNIZED DRUG - CODE] PEG (15:33)
[2024-01-29] MEDS ORDERED: FLEEENE12 PR (15:33)
[2024-01-29] MEDS ORDERED: MIRA33506 PEG (15:33)
[2024-01-29] MEDS ORDERED: SENO8.6T5 PEG (15:33)
[2024-01-29] MEDS ORDERED: ACET32TAB PEG (15:33)
[2024-01-29] MEDS ORDERED: FURO20TA2 GT (15:33)
[2024-01-29] MEDS ORDERED: PHEN20EL19 PEG (15:33)
[2024-01-29] MEDS ORDERED: LEVE15SO2 PEG (15:33)
[2024-01-29] MEDS ORDERED: ASPI81CH8 TF (15:33)
[2024-01-29] MEDS ORDERED: TAB-TAB3 PEG (15:33)
[2024-01-29] MEDS ORDERED: AMLO2.5T3 PEG (15:33)
[2024-01-29] MEDS ORDERED: MONT10TA97 PEG (15:33)
[2024-01-29] MEDS ORDERED: CALC1TAB74 PEG (15:33)
[2024-01-29] MEDS ORDERED: BISA10SU PR (15:33)
[2024-01-29] MEDS ORDERED: D3 S1CAP PEG (15:33)
[2024-01-29 15:48] VITALS: BP 162/80; TEMP 98.2; O2SAT 100
== END 2024-01-29 17:30 | disposition home or self-care (01) | DRG 870 ==
LOC: M ED 10:28 → EDBD 10:28 → M ED INP 17:36 → EEVIPCON 17:36 → M ICU 18:50 → M PCU 01-02 18:07 → M ICU 01-04 09:34 → M PCU 01-11 17:03 → M ICU 01-13 12:17 → M PCU 01-14 16:21
PROVIDERS: ADMIT Internal Medicine Pulmonary Disease; ATTEND General Practice
PROC: 06HN33Z Insertion of Infusion Device into Left Femoral Vein, Percutaneous Approach (ICD-10-PCS; 2023-12-30)
PROC: 5A1955Z Respiratory Ventilation, Greater than 96 Consecutive Hours (ICD-10-PCS; principal; 2024-01-04)
PROC: 0BH17EZ Insertion of Endotracheal Airway into Trachea, Via Natural or Artificial Opening (ICD-10-PCS; 2024-01-04)
PROC: 0B9F8ZX Drainage of Right Lower Lung Lobe, Via Natural or Artificial Opening Endoscopic, Diagnostic (ICD-10-PCS; 2024-01-04)
PROC: B246ZZZ Ultrasonography of Right and Left Heart (ICD-10-PCS; 2024-01-10)
PROC: 0DH63UZ Insertion of Feeding Device into Stomach, Percutaneous Approach (ICD-10-PCS; 2024-01-24)
PROC: 0DH68UZ Insertion of Feeding Device into Stomach, Via Natural or Artificial Opening Endoscopic (ICD-10-PCS; 2024-01-25)
DX: A41.9 Sepsis, unspecified organism (principal); J69.0 Pneumonitis due to inhalation of food and vomit; G93.41 Metabolic encephalopathy; R65.21 Severe sepsis with septic shock; G80.0 Spastic quadriplegic cerebral palsy; J96.01 Acute respiratory failure with hypoxia; J15.0 Pneumonia due to Klebsiella pneumoniae; R57.1 Hypovolemic shock; F72 Severe intellectual disabilities; E87.3 Alkalosis; N17.9 Acute kidney failure, unspecified; E44.0 Moderate protein-calorie malnutrition; I82.611 Acute embolism and thrombosis of superficial veins of right upper extremity; R13.10 Dysphagia, unspecified; R63.39 Other feeding difficulties; G40.909 Epilepsy, unspecified, not intractable, without status epilepticus; B96.1 Klebsiella pneumoniae [K. pneumoniae] as the cause of diseases classified elsewhere; Z86.73 Personal history of transient ischemic attack (TIA), and cerebral infarction without residual deficits; I10 Essential (primary) hypertension; D64.9 Anemia, unspecified; K21.9 Gastro-esophageal reflux disease without esophagitis; Z79.82 Long term (current) use of aspirin; Z79.899 Other long term (current) drug therapy

== ENCOUNTER 2024-02-17 19:12 | Emergency (ER) | payer MEDICARE, MEDICAID ==
[~2024-02-17 19:12] MED LIST changes: +ACET32TAB PEG; +AMLO2.5T3 PEG; +ASPI81CH33 PO; +ASPI81CH8 TF; +BISA10SU PR; +CALC1TAB74 PEG; +COLA100C5 PO; +D3 S1CAP PEG; +DESI13CR2 TOP; +FURO20TA2 GT; +LANS30CA93 PEG; +LEVE15SO2 PEG; +MIRA33506 PEG; +MONT10TA97 PEG; +OXYB-54 PO; +PHEN20EL19 PEG; +PHEN64.8 PO; +SENO8.6T5 PEG; +TAB-TAB3 PEG; +[UNRECOGNIZED DRUG - CODE] PEG
[2024-02-17 21:44] VITALS: TEMP 97.6; O2SAT 96
[2024-02-17 21:54] VITALS: BP 146/90
== END 2024-02-17 22:25 | disposition home or self-care (01) ==
LOC: M ED 19:12
DX: K94.23 Gastrostomy malfunction (principal); I10 Essential (primary) hypertension; G80.9 Cerebral palsy, unspecified; K21.9 Gastro-esophageal reflux disease without esophagitis; F79 Unspecified intellectual disabilities; Z86.16 Personal history of COVID-19; Z79.82 Long term (current) use of aspirin; Z79.899 Other long term (current) drug therapy

== ENCOUNTER → 2024-02-23 | Outpatient (CLI) | payer MEDICARE, MEDICAID ==
[2024-02-23 19:12] LABS: BASO % 0.2 % (0.0-1.0); EOS % 0.3 % (0.0-3.0); HEMATOCRIT 43.3 % (42.0-52.0); HEMOGLOBIN 14.3 g/dl (13.5-17.5); LYMPH # 2.2 10^3/uL (1.5-5.0); LYMPH % 24.7 % (24.0-44.0); MEAN CORPUSCULAR HEMOGLOBIN 31.2 pg (27.0-33.0); MEAN CORPUSCULAR VOLUME 94.5 fl (80.0-96.0); MONO # 1.8 10^3/uL (0.0-0.8); MONO % 19.5 % (2.0-8.0); NEUTROPHILS # 4.9 10^3/uL (1.5-8.5); NEUTROPHILS % 55.2 % (36.0-66.0); PLATELET COUNT, AUTOMATED 471 10^3/uL (150-450); RED BLOOD COUNT 4.58 10^6/uL (4.30-6.10)
[2024-02-23 19:28] LABS: ALBUMIN 3.6 G/DL (3.2-5.2); ALKALINE PHOSPHATASE 180 U/L (40-129); ALT/SGPT 36 U/L (7.0-40); AST/SGOT 27 U/L (<34); BILIRUBIN,TOTAL 0.2 MG/DL (0.3-1.2); BLOOD UREA NITROGEN 16 MG/DL (9-23); CALCIUM LEVEL 9.5 MG/DL (8.3-10.6); CARBON DIOXIDE LEVEL 34 MMOL/L (20-31); CHLORIDE LEVEL 92 MMOL/L (98-107); CREATININE FOR GFR 0.41 MG/DL (0.70-1.30); GLOMERULAR FILTRATION RATE > 60.0 (>49); GLUCOSE, FASTING 96 MG/DL (74-106); POTASSIUM SERUM 3.4 MMOL/L (3.5-5.1); SODIUM LEVEL 138 MMOL/L (136-145); TOTAL PROTEIN 9.3 G/DL (5.7-8.2)
[2024-02-23 20:44] LABS: PHENOBARBITAL LEVEL 19.7 UG/ML (15.0-40.0)
== END ==
LOC: M PLALAB 15:35
PROVIDERS: ATTEND Physician Assistant Medical
DX: G40.909 Epilepsy, unspecified, not intractable, without status epilepticus (principal); J18.9 Pneumonia, unspecified organism; I80.9 Phlebitis and thrombophlebitis of unspecified site; E55.9 Vitamin D deficiency, unspecified

== ENCOUNTER → 2024-03-04 | Outpatient (CLI) | payer MEDICARE, MEDICAID ==
[2024-03-04 10:34] LABS: BASO % 0.3 % (0.0-1.0); EOS % 0.1 % (0.0-3.0); HEMATOCRIT 48.3 % (42.0-52.0); HEMOGLOBIN 15.8 g/dl (13.5-17.5); LYMPH # 2.4 10^3/uL (1.5-5.0); LYMPH % 23.7 % (24.0-44.0); MEAN CORPUSCULAR HEMOGLOBIN 30.9 pg (27.0-33.0); MEAN CORPUSCULAR HGB CONC 32.7 g/dl (32.0-36.5); MEAN CORPUSCULAR VOLUME 94.3 fl (80.0-96.0); MONO # 1.6 10^3/uL (0.0-0.8); NEUTROPHILS % 59.6 % (36.0-66.0); PLATELET COUNT, AUTOMATED 464 10^3/uL (150-450); RED BLOOD COUNT 5.12 10^6/uL (4.30-6.10)
[2024-03-04 11:06] LABS: TOTAL IRON BINDING CAPACITY 290 UG/DL (250-425)
[2024-03-04 11:07] LABS: ALBUMIN 3.8 G/DL (3.2-5.2); ALKALINE PHOSPHATASE 172 U/L (40-129); ALT/SGPT 30 U/L (7.0-40); AST/SGOT 15 U/L (<34); BILIRUBIN,TOTAL 0.3 MG/DL (0.3-1.2); BLOOD UREA NITROGEN 23 MG/DL (9-23); CALCIUM LEVEL 10.2 MG/DL (8.3-10.6); CARBON DIOXIDE LEVEL 35 MMOL/L (20-31); CHLORIDE LEVEL 99 MMOL/L (98-107); CREATININE FOR GFR 0.48 MG/DL (0.70-1.30); GLOMERULAR FILTRATION RATE > 60.0 (>49); GLUCOSE, FASTING 143 MG/DL (74-106); IRON (FE) 96 UG/DL (65-175); MAGNESIUM LEVEL 2.1 MG/DL (1.8-2.4); PERCENT SATURATION 33.1 % (19.7-50.0); POTASSIUM SERUM 3.1 MMOL/L (3.5-5.1); PTH INTACT 57.9 PG/ML (18.5-88.0); SODIUM LEVEL 146 MMOL/L (136-145); TOTAL PROTEIN 9.7 G/DL (5.7-8.2)
[2024-03-04 11:08] LABS: FERRITIN 53.3 NG/ML (10.5-307.3)
[2024-03-04 11:09] LABS: VITAMIN B12 LEVEL 532 PG/ML (211-911)
[2024-03-04 11:16] LABS: PHENOBARBITAL LEVEL 25.3 UG/ML (15.0-40.0)
[2024-03-04 11:17] LABS: TOTAL 25(OH) VITAMIN D 62.1 NG/ML (20.0-100.0)
[2024-03-04 12:40] LABS: PHENYTOIN (DILANTIN) 62.1 UG/ML (10.0-20.0)
[2024-03-04 19:32] LABS: HEMATOCRIT 48.3 % (42.0-52.0)
== END ==
LOC: M PLALAB 08:54
PROVIDERS: ATTEND Family Medicine
DX: I50.32 Chronic diastolic (congestive) heart failure (principal); Z93.1 Gastrostomy status; D50.9 Iron deficiency anemia, unspecified; E55.9 Vitamin D deficiency, unspecified; G40.909 Epilepsy, unspecified, not intractable, without status epilepticus

== ENCOUNTER → 2024-03-11 | Outpatient (CLI) | payer MEDICARE, MEDICAID ==
[2024-03-11 14:49] LABS: BASO # 0.1 10^3/uL (0.0-0.2); BASO % 0.5 % (0.0-1.0); EOS # 0.1 10^3/uL (0.0-0.5); EOS % 0.8 % (0.0-3.0); HEMATOCRIT 46.1 % (42.0-52.0); HEMOGLOBIN 14.9 g/dl (13.5-17.5); LYMPH # 2.5 10^3/uL (1.5-5.0); MEAN CORPUSCULAR HEMOGLOBIN 31.7 pg (27.0-33.0); MEAN CORPUSCULAR HGB CONC 32.3 g/dl (32.0-36.5); MEAN CORPUSCULAR VOLUME 98.1 fl (80.0-96.0); MONO # 1.2 10^3/uL (0.0-0.8); MONO % 12.2 % (2.0-8.0); NEUTROPHILS # 6.1 10^3/uL (1.5-8.5); NEUTROPHILS % 61.3 % (36.0-66.0); PLATELET COUNT, AUTOMATED 335 10^3/uL (150-450); WHITE BLOOD COUNT 9.9 10^3/uL (4.0-10.0)
[2024-03-11 15:27] LABS: PHENOBARBITAL LEVEL 24.5 UG/ML (15.0-40.0); PHENYTOIN (DILANTIN) 35.4 UG/ML (10.0-20.0)
[2024-03-11 15:29] LABS: ALBUMIN 3.5 G/DL (3.2-5.2); ALKALINE PHOSPHATASE 166 U/L (40-129); ALT/SGPT 43 U/L (7.0-40); AST/SGOT 31 U/L (<34); BILIRUBIN,TOTAL 0.2 MG/DL (0.3-1.2); BLOOD UREA NITROGEN 29 MG/DL (9-23); CALCIUM LEVEL 9.7 MG/DL (8.3-10.6); CARBON DIOXIDE LEVEL 34 MMOL/L (20-31); CHLORIDE LEVEL 109 MMOL/L (98-107); GLOMERULAR FILTRATION RATE > 60.0 (>49); GLUCOSE, FASTING 123 MG/DL (74-106); POTASSIUM SERUM 3.8 MMOL/L (3.5-5.1); SODIUM LEVEL 152 MMOL/L (136-145)
[2024-03-11 15:32] LABS: FERRITIN 67.1 NG/ML (10.5-307.3)
== END ==
LOC: M PLALAB 09:20
PROVIDERS: ATTEND Family Medicine
DX: G40.909 Epilepsy, unspecified, not intractable, without status epilepticus (principal); I50.32 Chronic diastolic (congestive) heart failure; Z93.1 Gastrostomy status

== ENCOUNTER → 2024-03-22 | Outpatient (CLI) | payer MEDICARE, MEDICAID ==
[2024-03-22 15:12] LABS: BASO % 0.4 % (0.0-1.0); EOS # 0.1 10^3/uL (0.0-0.5); EOS % 1.3 % (0.0-3.0); HEMATOCRIT 43.1 % (42.0-52.0); HEMOGLOBIN 13.4 g/dl (13.5-17.5); LYMPH # 2.5 10^3/uL (1.5-5.0); LYMPH % 29.9 % (24.0-44.0); MEAN CORPUSCULAR HEMOGLOBIN 30.5 pg (27.0-33.0); MEAN CORPUSCULAR HGB CONC 31.1 g/dl (32.0-36.5); MEAN CORPUSCULAR VOLUME 98.2 fl (80.0-96.0); MONO % 11.6 % (2.0-8.0); NEUTROPHILS # 4.7 10^3/uL (1.5-8.5); NEUTROPHILS % 56.6 % (36.0-66.0); PLATELET COUNT, AUTOMATED 358 10^3/uL (150-450); RED BLOOD COUNT 4.39 10^6/uL (4.30-6.10); WHITE BLOOD COUNT 8.3 10^3/uL (4.0-10.0)
[2024-03-22 15:40] LABS: IRON (FE) 139 UG/DL (65-175); PERCENT SATURATION 51.5 % (19.7-50.0); TOTAL IRON BINDING CAPACITY 270 UG/DL (250-425)
[2024-03-22 15:41] LABS: ALBUMIN 3.4 G/DL (3.2-5.2); ALKALINE PHOSPHATASE 167 U/L (40-129); ALT/SGPT 78 U/L (7.0-40); AST/SGOT 58 U/L (<34); BILIRUBIN,TOTAL 0.2 MG/DL (0.3-1.2); BLOOD UREA NITROGEN 24 MG/DL (9-23); CALCIUM LEVEL 9.3 MG/DL (8.3-10.6); CARBON DIOXIDE LEVEL 31 MMOL/L (20-31); CHLORIDE LEVEL 112 MMOL/L (98-107); CREATININE FOR GFR 0.49 MG/DL (0.70-1.30); FERRITIN 56.5 NG/ML (10.5-307.3); GLOMERULAR FILTRATION RATE > 60.0 (>49); GLUCOSE, FASTING 111 MG/DL (74-106); MAGNESIUM LEVEL 2.3 MG/DL (1.8-2.4); POTASSIUM SERUM 3.6 MMOL/L (3.5-5.1); PTH INTACT 32.6 PG/ML (18.5-88.0); SODIUM LEVEL 156 MMOL/L (136-145); TOTAL 25(OH) VITAMIN D 62.5 NG/ML (20.0-100.0); TOTAL PROTEIN 8.1 G/DL (5.7-8.2)
[2024-03-22 15:42] LABS: VITAMIN B12 LEVEL 502 PG/ML (211-911)
[2024-03-22 15:43] LABS: PHENYTOIN (DILANTIN) 10.5 UG/ML (10.0-20.0)
== END ==
LOC: M PLALAB 09:21
PROVIDERS: ATTEND Family Medicine
DX: E55.9 Vitamin D deficiency, unspecified (principal); D50.9 Iron deficiency anemia, unspecified; Z93.1 Gastrostomy status; I50.32 Chronic diastolic (congestive) heart failure; G40.909 Epilepsy, unspecified, not intractable, without status epilepticus

== ENCOUNTER 2024-03-30 17:44 | Inpatient (IN) | payer MEDICARE, MEDICAID ==
[~2024-03-30] VITALS: Ht 152.4 cm; Wt 60.4 kg
[2024-03-30] MEDS ORDERED: ACETAMINOPHEN 325MG/10.15ML UDC GT ONE (18:40)
[2024-03-30] MEDS: ACETAMINOPHEN *IV* 1,000 MG in IV 1 EA IV ONE (19:02)
[2024-03-30 19:15] LABS: VENOUS HCO3 26.4 MMOL/L (23.0-27.0); VENOUS O2 SATURATION 84.7 % (60.0-80.0); VENOUS PARTIAL PRESSURE CO2 40.6 mmHg (38.0-50.0); VENOUS PARTIAL PRESSURE O2 49.4 mmHg (30.0-50.0); VENOUS PH 7.431 UNITS (7.330-7.430); VENOUS STANDARD HCO3 25.9 MMOL/L; VENOUS TOTAL CO2 27.7 MMOL/L (24.0-28.0)
[2024-03-30 19:18] LABS: BASO # 0.1 10^3/uL (0.0-0.2); BASO % 0.2 % (0.0-1.0); HEMATOCRIT 41.3 % (42.0-52.0); HEMOGLOBIN 13.7 g/dl (13.5-17.5); LYMPH # 1.3 10^3/uL (1.5-5.0); LYMPH % 4.6 % (24.0-44.0); MEAN CORPUSCULAR HEMOGLOBIN 31.6 pg (27.0-33.0); MEAN CORPUSCULAR HGB CONC 33.2 g/dl (32.0-36.5); MEAN CORPUSCULAR VOLUME 95.4 fl (80.0-96.0); MONO % 11.9 % (2.0-8.0); NEUTROPHILS # 23.7 10^3/uL (1.5-8.5); NEUTROPHILS % 82.5 % (36.0-66.0); PLATELET COUNT, AUTOMATED 258 10^3/uL (150-450); RED BLOOD COUNT 4.33 10^6/uL (4.30-6.10); WHITE BLOOD COUNT 28.7 10^3/uL (4.0-10.0)
[2024-03-30 19:47] LABS: MONO # 3.4 10^3/uL (0.0-0.8)
[2024-03-30 21:16] LABS: C REACTIVE PROTEIN QUANTITATIV 15.71 MG/DL (<1.0)
[2024-03-30 21:23] LABS: PROCALCITONIN 0.54 ng/ml
[2024-03-30 21:26] LABS: ALBUMIN 3.1 G/DL (3.2-5.2); ALKALINE PHOSPHATASE 167 U/L (40-129); ALT/SGPT 39 U/L (7.0-40); AST/SGOT 22 U/L (<34); BILIRUBIN,DIRECT 0.1 MG/DL (<0.4); BILIRUBIN,TOTAL 0.3 MG/DL (0.3-1.2); BLOOD UREA NITROGEN 16 MG/DL (9-23); CALCIUM LEVEL 9.4 MG/DL (8.3-10.6); CARBON DIOXIDE LEVEL 26 MMOL/L (20-31); CHLORIDE LEVEL 111 MMOL/L (98-107); CREATININE FOR GFR 0.55 MG/DL (0.70-1.30); GLOMERULAR FILTRATION RATE > 60.0 (>49); GLUCOSE, FASTING 135 MG/DL (74-106); POTASSIUM SERUM 3.4 MMOL/L (3.5-5.1); SODIUM LEVEL 147 MMOL/L (136-145); TOTAL PROTEIN 7.6 G/DL (5.7-8.2)
[2024-03-30] MEDS: LIDOCAINE 2% 5ML JELLY UROJET TOP ONE (22:48)
[2024-03-30 23:08] LABS: APPEARANCE, URINE CLOUDY (CLEAR); BACTERIA, URINE AUTO 1+ (NEGATIVE); BILIRUBIN, URINE AUTO NEGATIVE (NEGATIVE); BLOOD, URINE BLOOD NEGATIVE (NEGATIVE); COLOR, URINE AMBER (YELLOW); GLUCOSE, URINE (UA) AUTO NEGATIVE (NEGATIVE); KETONE, URINE AUTO NEGATIVE (NEGATIVE); LEUKOCYTE ESTERASE, URINE AUTO TRACE (NEGATIVE); MUCUS, URINE SMALL (NEGATIVE); NITRITE, URINE AUTO NEGATIVE (NEGATIVE); PROTEIN, URINE AUTO 2+ mg/dL (NEGATIVE); RBC, URINE AUTO 22 /HPF (0-3); SQUAMOUS EPITHELIAL CELL UR AU 0 /HPF (0-6); UROBILINOGEN, URINE AUTO 0.2 mg/dL (0.0-2.0); WBC, URINE AUTO TNTC /HPF (0-3)
[2024-03-30] MEDS: IBUPROFEN 100MG 5ML SUSP UDC DYE FREE GT ONE (23:41)
[2024-03-31] MEDS: CEFEPIME HCL 2 GM in DEXTROSE 5% (D5W) ADV/MINI-BAG 50 ML IV ONE (00:34)
[2024-03-31] MEDS ORDERED: MED REC IN PROGRESS XX SCH (01:05)
[2024-03-31] MEDS ORDERED: IBUPROFEN 100MG 5ML SUSP UDC DYE FREE GT PRN (04:30)
[2024-03-31] MEDS: ACETAMINOPHEN *IV* 1,000 MG in IV 1 EA IV ONE (04:42)
[2024-03-31] MEDS ORDERED: [UNRECOGNIZED DRUG - CODE] GT (07:04)
[2024-03-31] MEDS ORDERED: SENN-186 GT (07:04)
[2024-03-31] MEDS ORDERED: CALC1TAB63 GT (07:04)
[2024-03-31] MEDS ORDERED: MULT400T10 GT (07:04)
[2024-03-31] MEDS ORDERED: PREV30TA3 GT (07:04)
[2024-03-31] MEDS ORDERED: ASPI81CH33 GT (07:04)
[2024-03-31] MEDS ORDERED: AMLO25TA GT (07:04)
[2024-03-31] MEDS ORDERED: MONT10TA97 GT (07:04)
[2024-03-31] MEDS ORDERED: VITA100066 GT (07:04)
[2024-03-31] MEDS ORDERED: BISA10SU27 PR (07:04)
[2024-03-31] MEDS ORDERED: TRIA1CR80 TOP (07:04)
[2024-03-31] MEDS ORDERED: LEVE15SO2 GT (07:04)
[2024-03-31] MEDS ORDERED: FLEEENE12 PR (07:04)
[2024-03-31] MEDS ORDERED: POLY510P14 GT (07:04)
[2024-03-31] MEDS ORDERED: PHEN20EL19 GT (07:04)
[2024-03-31] MEDS ORDERED: HOME MED LIST COMPLETE! XX SCH (07:05)
[2024-03-31] MEDS: levETIRAcetam ORAL SOLUTION 500MG/5ML UDC GT SCH (09:00)
[2024-03-31] MEDS: ENOXAPARIN 40MG/0.4ML SYRINGE (J1650 PER 10MG) SC SCH (09:22)
[2024-03-31] MEDS ORDERED: BISACODYL 10MG SUPP PR PRN (11:25)
[2024-03-31] MEDS ORDERED: FLEET ENEMA PR PRN (11:25)
[2024-03-31] MEDS: CEFEPIME HCL 2 GM in DEXTROSE 5% (D5W) ADV/MINI-BAG 50 ML IV SCH (12:15)
[2024-03-31 18:30] VITALS: BP 150/88; TEMP 99.5; O2SAT 99
[2024-03-31 20:00] VITALS: BP 168/107; TEMP 99.6; O2SAT 97
[2024-03-31] MEDS ORDERED: DEXTROSE 50% 50ML SYRINGE IV PRN (20:35)
[2024-03-31] MEDS ORDERED: GLUCAGON INJ 1MG VIAL SC PRN (20:35)
[2024-03-31] MEDS ORDERED: GLUCOSE 4 GM CHEW PO PRN (20:35)
[2024-03-31] MEDS: ONDANSETRON 4MG 2ML VIAL IV PRN (20:58)
[2024-03-31] MEDS: LR 1,000 ML IV SCH (20:58)
[2024-03-31 21:00] VITALS: O2SAT 95
[2024-03-31] MEDS: PHENYTOIN 125MG/5ML SUSP ORAL SYRINGE *DRAW UP EXACT DOSE GT SCH (22:36)
[2024-03-31] MEDS: PHENobarbital ELIX 20 MG/5 ML UD GT SCH (22:36)
[2024-04-01] VITALS (11 sets, daily range): BP systolic 124–162; BP diastolic 78–99; TEMP 97–101.2; O2SAT 96–99
[2024-04-01] MEDS: ACETAMINOPHEN 325MG/10.15ML UDC GT PRN (05:45)
[2024-04-01 06:04] LABS: MEAN CORPUSCULAR HGB CONC 33.2 g/dl (32.0-36.5); MEAN CORPUSCULAR VOLUME 93.4 fl (80.0-96.0); PLATELET COUNT, AUTOMATED 231 10^3/uL (150-450); RED BLOOD COUNT 3.64 10^6/uL (4.30-6.10); WHITE BLOOD COUNT 21.6 10^3/uL (4.0-10.0)
[2024-04-01 06:12] LABS: HEMOGLOBIN 11.3 g/dl (13.5-17.5)
[2024-04-01 06:28] LABS: ALBUMIN 2.6 G/DL (3.2-5.2); ALKALINE PHOSPHATASE 138 U/L (40-129); ALT/SGPT 29 U/L (7.0-40); AST/SGOT 17 U/L (<34); BILIRUBIN,TOTAL 0.2 MG/DL (0.3-1.2); BLOOD UREA NITROGEN 21 MG/DL (9-23); CALCIUM LEVEL 8.6 MG/DL (8.3-10.6); CARBON DIOXIDE LEVEL 25 MMOL/L (20-31); CHLORIDE LEVEL 112 MMOL/L (98-107); CREATININE FOR GFR 0.59 MG/DL (0.70-1.30); GLOMERULAR FILTRATION RATE > 60.0 (>49); GLUCOSE, FASTING 100 MG/DL (74-106); MAGNESIUM LEVEL 2.1 MG/DL (1.8-2.4); POTASSIUM SERUM 3.2 MMOL/L (3.5-5.1); SODIUM LEVEL 149 MMOL/L (136-145); TOTAL PROTEIN 6.9 G/DL (5.7-8.2)
[2024-04-01] MEDS: MIRALAX *UNIT DOSE* 17GM PACKET GT SCH (09:00)
[2024-04-01] MEDS: CEFEPIME HCL 2 GM in DEXTROSE 5% (D5W) ADV/MINI-BAG 50 ML IV SCH (10:12)
[2024-04-01] MEDS: ASPIRIN 81MG CHEW TABLET GT SCH (10:13)
[2024-04-01] MEDS: SENNA 8.6 MG TAB (SENOKOT) GT SCH (10:14)
[2024-04-01] MEDS: MONTELUKAST 10 MG TAB GT SCH (10:14)
[2024-04-01] MEDS: POTASSIUM CHLORIDE 10% LIQ 20MEQ/15ML UDC GT SCH (16:27)
[2024-04-02] VITALS: BP 152/88; TEMP 97.9; O2SAT 99
[2024-04-02 08:09] VITALS: BP 148/96; TEMP 98.1; O2SAT 97
[2024-04-02 12:00] VITALS: BP 150/98; TEMP 97.9; O2SAT 98
[2024-04-02 16:00] VITALS: BP 149/92; TEMP 97.5; O2SAT 99
[2024-04-02 20:57] VITALS: BP 162/100; TEMP 98.1; O2SAT 95
[2024-04-02 21:00] VITALS: O2SAT 95
[2024-04-03] VITALS (8 sets, daily range): BP systolic 121–168; BP diastolic 60–98; TEMP 97.7–99; O2SAT 96–98
[2024-04-03 09:52] LABS: BASO % 0.5 % (0.0-1.0); EOS # 0.1 10^3/uL (0.0-0.5); EOS % 1.4 % (0.0-3.0); HEMATOCRIT 35.8 % (42.0-52.0); HEMOGLOBIN 12.2 g/dl (13.5-17.5); LYMPH % 22.8 % (24.0-44.0); MEAN CORPUSCULAR HEMOGLOBIN 30.9 pg (27.0-33.0); MEAN CORPUSCULAR HGB CONC 34.1 g/dl (32.0-36.5); MEAN CORPUSCULAR VOLUME 90.6 fl (80.0-96.0); MONO # 1.5 10^3/uL (0.0-0.8); MONO % 16.6 % (2.0-8.0); NEUTROPHILS % 57.1 % (36.0-66.0); PLATELET COUNT, AUTOMATED 227 10^3/uL (150-450); RED BLOOD COUNT 3.95 10^6/uL (4.30-6.10); WHITE BLOOD COUNT 8.8 10^3/uL (4.0-10.0)
[2024-04-03] MEDS: cefTRIAXone SOD 2 GM in DEXTROSE 5% (D5W) ADV/MINI-BAG 50 ML IV SCH (10:05)
[2024-04-03 10:25] LABS: PROCALCITONIN 0.34 ng/ml
[2024-04-03 10:27] LABS: ALBUMIN 2.4 G/DL (3.2-5.2); ALKALINE PHOSPHATASE 143 U/L (40-129); ALT/SGPT 36 U/L (7.0-40); AST/SGOT 24 U/L (<34); BILIRUBIN,TOTAL 0.2 MG/DL (0.3-1.2); BLOOD UREA NITROGEN 7 MG/DL (9-23); CALCIUM LEVEL 8.3 MG/DL (8.3-10.6); CARBON DIOXIDE LEVEL 26 MMOL/L (20-31); CHLORIDE LEVEL 102 MMOL/L (98-107); CREATININE FOR GFR 0.32 MG/DL (0.70-1.30); GLOMERULAR FILTRATION RATE > 60.0 (>49); GLUCOSE, FASTING 107 MG/DL (74-106); POTASSIUM SERUM 4.2 MMOL/L (3.5-5.1); SODIUM LEVEL 137 MMOL/L (136-145); TOTAL PROTEIN 6.7 G/DL (5.7-8.2)
[2024-04-03] MEDS: CEFDINIR 300 MG CAP (OMNICEF) GT SCH (22:49)
[2024-04-03 23:55] LABS: VENOUS BASE EXCESS 2.9 (-2.0-2.0); VENOUS HCO3 27.4 MMOL/L (23.0-27.0); VENOUS O2 SATURATION 94.9 % (60.0-80.0); VENOUS PARTIAL PRESSURE CO2 41.4 mmHg (38.0-50.0); VENOUS PARTIAL PRESSURE O2 74.6 mmHg (30.0-50.0); VENOUS PH 7.438 UNITS (7.330-7.430); VENOUS TOTAL CO2 28.6 MMOL/L (24.0-28.0)
[2024-04-03 23:58] LABS: BASO % 0.3 % (0.0-1.0); EOS % 0.1 % (0.0-3.0); HEMATOCRIT 39.9 % (42.0-52.0); HEMOGLOBIN 14.1 g/dl (13.5-17.5); LYMPH # 1.7 10^3/uL (1.5-5.0); LYMPH % 10.9 % (24.0-44.0); MEAN CORPUSCULAR HEMOGLOBIN 31.2 pg (27.0-33.0); MEAN CORPUSCULAR HGB CONC 35.3 g/dl (32.0-36.5); MEAN CORPUSCULAR VOLUME 88.3 fl (80.0-96.0); MONO # 2.2 10^3/uL (0.0-0.8); MONO % 13.9 % (2.0-8.0); NEUTROPHILS # 11.5 10^3/uL (1.5-8.5); NEUTROPHILS % 73.6 % (36.0-66.0); PLATELET COUNT, AUTOMATED 283 10^3/uL (150-450); RED BLOOD COUNT 4.52 10^6/uL (4.30-6.10); WHITE BLOOD COUNT 15.7 10^3/uL (4.0-10.0)
[2024-04-04] VITALS: BP 130/72; TEMP 100.7; O2SAT 97
[2024-04-04] MEDS: ACETAMINOPHEN 650MG SUPP PR PRN (00:18)
[2024-04-04] MEDS: ONDANSETRON 4MG ORAL DISINTEGRATING TAB SL PRN (00:18)
[2024-04-04 00:31] LABS: PROCALCITONIN 0.29 ng/ml
[2024-04-04 00:52] LABS: ALBUMIN 2.8 G/DL (3.2-5.2); ALKALINE PHOSPHATASE 161 U/L (40-129); ALT/SGPT 36 U/L (7.0-40); AST/SGOT 20 U/L (<34); BILIRUBIN,DIRECT < 0.1 MG/DL (<0.4); BILIRUBIN,TOTAL 0.2 MG/DL (0.3-1.2); BLOOD UREA NITROGEN 9 MG/DL (9-23); CALCIUM LEVEL 8.7 MG/DL (8.3-10.6); CARBON DIOXIDE LEVEL 27 MMOL/L (20-31); CHLORIDE LEVEL 99 MMOL/L (98-107); CREATININE FOR GFR 0.33 MG/DL (0.70-1.30); GLOMERULAR FILTRATION RATE > 60.0 (>49); GLUCOSE, FASTING 116 MG/DL (74-106); POTASSIUM SERUM 4.4 MMOL/L (3.5-5.1); SODIUM LEVEL 137 MMOL/L (136-145); TOTAL PROTEIN 7.6 G/DL (5.7-8.2)
[2024-04-04] MEDS: NS (Normal Saline) 0.9% 1,000 ML IV ONE (01:40)
[2024-04-04 01:47] VITALS: TEMP 99.9
[2024-04-04 07:50] VITALS: TEMP 98.9; O2SAT 97
[2024-04-04] MEDS ORDERED: levETIRAcetam INJection 750 MG in D5W 100 ML IV SCH (09:00)
[2024-04-04] MEDS: cefTRIAXone SOD 2 GM in DEXTROSE 5% (D5W) ADV/MINI-BAG 50 ML IV SCH (09:15)
[2024-04-04] MEDS: PHENobarbital 65MG/ML 1ML VIAL IV SCH (10:30)
[2024-04-04] MEDS: PHENYTOIN 100MG/2ML VIAL IV SCH (10:36)
[2024-04-04 11:53] VITALS: BP 130/60; TEMP 99.1; O2SAT 97
[2024-04-04] MEDS: LEVETIRACETAM IV SCH (12:12)
[2024-04-04] MEDS: NS IV SCH (12:12)
[2024-04-04 17:00] VITALS: BP 128/72; TEMP 98.8; O2SAT 95
[2024-04-04 20:00] VITALS: BP 138/78; TEMP 100.4; O2SAT 97
[2024-04-05] VITALS (10 sets, daily range): BP systolic 110–161; BP diastolic 68–100; TEMP 98.7–100.4; O2SAT 94–97
[2024-04-05 08:59] LABS: BASO % 0.3 % (0.0-1.0); EOS # 0.1 10^3/uL (0.0-0.5); EOS % 0.7 % (0.0-3.0); LYMPH # 2.8 10^3/uL (1.5-5.0); LYMPH % 18.6 % (24.0-44.0); MEAN CORPUSCULAR HEMOGLOBIN 30.3 pg (27.0-33.0); MEAN CORPUSCULAR HGB CONC 33.5 g/dl (32.0-36.5); MEAN CORPUSCULAR VOLUME 90.4 fl (80.0-96.0); MONO % 13.2 % (2.0-8.0); NEUTROPHILS # 9.9 10^3/uL (1.5-8.5); NEUTROPHILS % 65.7 % (36.0-66.0); PLATELET COUNT, AUTOMATED 330 10^3/uL (150-450); RED BLOOD COUNT 3.96 10^6/uL (4.30-6.10)
[2024-04-05 09:12] LABS: HEMATOCRIT 35.8 % (42.0-52.0)
[2024-04-05 09:31] LABS: BLOOD UREA NITROGEN 6 MG/DL (9-23); CALCIUM LEVEL 8.3 MG/DL (8.3-10.6); CARBON DIOXIDE LEVEL 24 MMOL/L (20-31); CHLORIDE LEVEL 104 MMOL/L (98-107); GLOMERULAR FILTRATION RATE > 60.0 (>49); GLUCOSE, FASTING 114 MG/DL (74-106); POTASSIUM SERUM 4.3 MMOL/L (3.5-5.1); SODIUM LEVEL 137 MMOL/L (136-145)
[2024-04-05] MEDS ORDERED: AMPICILLIN SOD/SULBACTAM SOD 3 GM in SODIUM CHLORIDE 0.9% 100ML ADD 100 ML IV SCH (12:00)
[2024-04-05] MEDS: SCOPOLAMINE 1MG TRANSDERMAL PATCH TOP SCH (12:25)
[2024-04-05] MEDS: METOCLOPRAMIDE INJ 10MG/2ML VIAL IV SCH (12:25)
[2024-04-05] MEDS: AMPICILLIN SOD/SULBACTAM SOD 3 GM in D5W MINI-BAG 100 ML IV SCH (12:27)
[2024-04-05] MEDS: GASTROGRAFIN SOLUTION 30ML GT SCH (12:54)
[2024-04-05] MEDS ORDERED: ISOVUE-370 76% 100ML VIAL As Ordered ONE (14:36)
[2024-04-05] MEDS: CALCIUM/VITAMIN D 500 MG TAB GT SCH (16:48)
[2024-04-05] MEDS: VITAMIN D 1,000 INTERNATIONAL UNITS TABLET GT SCH (22:55)
[2024-04-06] VITALS (8 sets, daily range): BP systolic 117–167; BP diastolic 70–98; TEMP 97.9–99.1; O2SAT 91–97
[2024-04-06] MEDS: NYSTATIN 100,000 UNITS/GM TOPICAL PWD 15GM TOP PRN (05:37)
[2024-04-06 05:46] LABS: BASO % 0.3 % (0.0-1.0); EOS # 0.2 10^3/uL (0.0-0.5); EOS % 1.2 % (0.0-3.0); HEMATOCRIT 32.4 % (42.0-52.0); HEMOGLOBIN 11.1 g/dl (13.5-17.5); LYMPH # 3.3 10^3/uL (1.5-5.0); LYMPH % 26.4 % (24.0-44.0); MEAN CORPUSCULAR HEMOGLOBIN 30.9 pg (27.0-33.0); MEAN CORPUSCULAR HGB CONC 34.3 g/dl (32.0-36.5); MEAN CORPUSCULAR VOLUME 90.3 fl (80.0-96.0); MONO % 16.3 % (2.0-8.0); NEUTROPHILS # 6.7 10^3/uL (1.5-8.5); NEUTROPHILS % 53.7 % (36.0-66.0); PLATELET COUNT, AUTOMATED 335 10^3/uL (150-450); RED BLOOD COUNT 3.59 10^6/uL (4.30-6.10); WHITE BLOOD COUNT 12.4 10^3/uL (4.0-10.0)
[2024-04-06 06:04] LABS: C REACTIVE PROTEIN QUANTITATIV 6.32 MG/DL (<1.0)
[2024-04-06 06:11] LABS: PROCALCITONIN 0.13 ng/ml
[2024-04-06 06:12] LABS: ALBUMIN 2.5 G/DL (3.2-5.2); ALKALINE PHOSPHATASE 120 U/L (40-129); ALT/SGPT 27 U/L (7.0-40); AST/SGOT 13 U/L (<34); BILIRUBIN,DIRECT < 0.1 MG/DL (<0.4); BILIRUBIN,TOTAL 0.2 MG/DL (0.3-1.2); BLOOD UREA NITROGEN < 5 MG/DL (9-23); CALCIUM LEVEL 8.5 MG/DL (8.3-10.6); CARBON DIOXIDE LEVEL 26 MMOL/L (20-31); CHLORIDE LEVEL 103 MMOL/L (98-107); CREATININE FOR GFR 0.36 MG/DL (0.70-1.30); GLOMERULAR FILTRATION RATE > 60.0 (>49); GLUCOSE, FASTING 94 MG/DL (74-106); POTASSIUM SERUM 3.8 MMOL/L (3.5-5.1); SODIUM LEVEL 140 MMOL/L (136-145); TOTAL PROTEIN 6.6 G/DL (5.7-8.2)
[2024-04-06 06:20] LABS: ERYTHROCYTE SEDIMENTATION RATE 51 mm/hr (0-20)
[2024-04-06] MEDS ORDERED: ENTER DRUG NAME HERE (PATIENT'S OWN MED) GT SCH (09:00)
[2024-04-06] MEDS: MULTIVITAMINS/MINERALS THERAP 1 TAB GT SCH (09:17)
[2024-04-06] MEDS: METOCLOPRAMIDE INJ 10MG/2ML VIAL IV SCH (11:33)
[2024-04-06] MEDS: PANTOPRAZOLE 40MG VIAL IV SCH (12:21)
[2024-04-06] MEDS: LORazepam 2 MG/ML 1ML VIAL IV ONE (21:24)
[2024-04-06] MEDS: AUGMENTIN BID 400MG/5ML SUSP 50ML BTL GT SCH (21:50)
[2024-04-06 23:05] LABS: HEMATOCRIT 29.3 % (42.0-52.0); HEMOGLOBIN 10.5 g/dl (13.5-17.5); MEAN CORPUSCULAR HEMOGLOBIN 31.9 pg (27.0-33.0); MEAN CORPUSCULAR HGB CONC 35.8 g/dl (32.0-36.5); MEAN CORPUSCULAR VOLUME 89.1 fl (80.0-96.0); PLATELET COUNT, AUTOMATED 340 10^3/uL (150-450); RED BLOOD COUNT 3.29 10^6/uL (4.30-6.10)
[2024-04-06 23:46] LABS: BLOOD UREA NITROGEN < 5 MG/DL (9-23); CALCIUM LEVEL 7.5 MG/DL (8.3-10.6); CARBON DIOXIDE LEVEL 23 MMOL/L (20-31); CHLORIDE LEVEL 103 MMOL/L (98-107); CREATININE FOR GFR 0.31 MG/DL (0.70-1.30); GLOMERULAR FILTRATION RATE > 60.0 (>49); GLUCOSE, FASTING 96 MG/DL (74-106); MAGNESIUM LEVEL 1.4 MG/DL (1.8-2.4); PHOSPHORUS LEVEL 2.7 MG/DL (2.4-5.1); POTASSIUM SERUM 3.9 MMOL/L (3.5-5.1); SODIUM LEVEL 137 MMOL/L (136-145)
[2024-04-07] VITALS (11 sets, daily range): BP systolic 134–147; BP diastolic 70–94; TEMP 97.3–97.8; O2SAT 90–99
[2024-04-07] MEDS: MAG SULF 1GM/100ML (MAG RUN) 1 GM in IV 1 EA IV SCH (03:33)
[2024-04-07 05:48] LABS: BASO # 0.1 10^3/uL (0.0-0.2); BASO % 0.5 % (0.0-1.0); EOS # 0.3 10^3/uL (0.0-0.5); EOS % 2.2 % (0.0-3.0); HEMATOCRIT 32.9 % (42.0-52.0); HEMOGLOBIN 11.3 g/dl (13.5-17.5); LYMPH # 3.6 10^3/uL (1.5-5.0); LYMPH % 30.3 % (24.0-44.0); MEAN CORPUSCULAR HGB CONC 34.3 g/dl (32.0-36.5); MEAN CORPUSCULAR VOLUME 90.1 fl (80.0-96.0); MONO # 1.4 10^3/uL (0.0-0.8); MONO % 12.1 % (2.0-8.0); NEUTROPHILS # 6.2 10^3/uL (1.5-8.5); NEUTROPHILS % 52.5 % (36.0-66.0); PLATELET COUNT, AUTOMATED 387 10^3/uL (150-450); RED BLOOD COUNT 3.65 10^6/uL (4.30-6.10); WHITE BLOOD COUNT 11.9 10^3/uL (4.0-10.0)
[2024-04-07 06:12] LABS: BLOOD UREA NITROGEN < 5 MG/DL (9-23); CARBON DIOXIDE LEVEL 25 MMOL/L (20-31); CHLORIDE LEVEL 102 MMOL/L (98-107); CREATININE FOR GFR 0.37 MG/DL (0.70-1.30); GLOMERULAR FILTRATION RATE > 60.0 (>49); GLUCOSE, FASTING 106 MG/DL (74-106); SODIUM LEVEL 136 MMOL/L (136-145)
[2024-04-07 08:44] LABS: PHENOBARBITAL LEVEL 10.1 UG/ML (15.0-40.0)
[2024-04-07 08:51] LABS: PHENYTOIN (DILANTIN) 3.1 UG/ML (10.0-20.0)
[2024-04-07] MEDS: PHENYTOIN 100MG/2ML VIAL IV ONE (15:28)
[2024-04-07] MEDS: PHENYTOIN 100MG/2ML VIAL IV SCH (21:04)
[2024-04-08] VITALS (8 sets, daily range): BP systolic 148–168; BP diastolic 69–98; TEMP 97.2–98.8; O2SAT 94–98
[2024-04-08 06:21] LABS: BASO % 0.3 % (0.0-1.0); EOS # 0.4 10^3/uL (0.0-0.5); EOS % 3.5 % (0.0-3.0); HEMOGLOBIN 10.8 g/dl (13.5-17.5); LYMPH # 2.6 10^3/uL (1.5-5.0); LYMPH % 21.5 % (24.0-44.0); MEAN CORPUSCULAR HEMOGLOBIN 30.8 pg (27.0-33.0); MEAN CORPUSCULAR HGB CONC 34.8 g/dl (32.0-36.5); MEAN CORPUSCULAR VOLUME 88.3 fl (80.0-96.0); MONO # 1.5 10^3/uL (0.0-0.8); MONO % 12.3 % (2.0-8.0); NEUTROPHILS # 7.2 10^3/uL (1.5-8.5); NEUTROPHILS % 60.1 % (36.0-66.0); PLATELET COUNT, AUTOMATED 459 10^3/uL (150-450); RED BLOOD COUNT 3.51 10^6/uL (4.30-6.10)
[2024-04-08 06:44] LABS: BLOOD UREA NITROGEN < 5 MG/DL (9-23); CALCIUM LEVEL 8.4 MG/DL (8.3-10.6); CARBON DIOXIDE LEVEL 25 MMOL/L (20-31); CHLORIDE LEVEL 103 MMOL/L (98-107); CREATININE FOR GFR 0.32 MG/DL (0.70-1.30); GLOMERULAR FILTRATION RATE > 60.0 (>49); GLUCOSE, FASTING 104 MG/DL (74-106); POTASSIUM SERUM 4.1 MMOL/L (3.5-5.1); SODIUM LEVEL 138 MMOL/L (136-145)
[2024-04-09] VITALS (15 sets, daily range): BP systolic 126–163; BP diastolic 81–105; TEMP 97.7–99.6; O2SAT 94–97
[2024-04-09 06:25] LABS: BASO # 0.1 10^3/uL (0.0-0.2); BASO % 0.4 % (0.0-1.0); EOS # 0.3 10^3/uL (0.0-0.5); EOS % 2.2 % (0.0-3.0); HEMATOCRIT 32.7 % (42.0-52.0); HEMOGLOBIN 11.4 g/dl (13.5-17.5); LYMPH # 2.5 10^3/uL (1.5-5.0); LYMPH % 21.7 % (24.0-44.0); MEAN CORPUSCULAR HEMOGLOBIN 31.2 pg (27.0-33.0); MEAN CORPUSCULAR HGB CONC 34.9 g/dl (32.0-36.5); MEAN CORPUSCULAR VOLUME 89.6 fl (80.0-96.0); MONO # 1.3 10^3/uL (0.0-0.8); MONO % 11.2 % (2.0-8.0); NEUTROPHILS # 7.3 10^3/uL (1.5-8.5); NEUTROPHILS % 62.8 % (36.0-66.0); PLATELET COUNT, AUTOMATED 519 10^3/uL (150-450); RED BLOOD COUNT 3.65 10^6/uL (4.30-6.10); WHITE BLOOD COUNT 11.6 10^3/uL (4.0-10.0)
[2024-04-09 06:52] LABS: PHENYTOIN (DILANTIN) 3.8 UG/ML (10.0-20.0)
[2024-04-09 07:04] LABS: BLOOD UREA NITROGEN < 5 MG/DL (9-23); CALCIUM LEVEL 8.7 MG/DL (8.3-10.6); CARBON DIOXIDE LEVEL 25 MMOL/L (20-31); CHLORIDE LEVEL 103 MMOL/L (98-107); CREATININE FOR GFR 0.32 MG/DL (0.70-1.30); GLOMERULAR FILTRATION RATE > 60.0 (>49); GLUCOSE, FASTING 110 MG/DL (74-106); POTASSIUM SERUM 4.4 MMOL/L (3.5-5.1); SODIUM LEVEL 137 MMOL/L (136-145)
[2024-04-09] MEDS: METOCLOPRAMIDE 5 MG TAB GT SCH (16:54)
[2024-04-09] MEDS: PHENYTOIN 125MG/5ML SUSP ORAL SYRINGE *DRAW UP EXACT DOSE PEG SCH (21:03)
[2024-04-09] MEDS: levETIRAcetam ORAL SOLUTION 500MG/5ML UDC GT SCH (21:04)
[2024-04-09] MEDS: PHENobarbital ELIX 20 MG/5 ML UD GT SCH (21:04)
[2024-04-10 04:00] VITALS: BP 141/96; TEMP 99.6; O2SAT 95
[2024-04-10 08:00] VITALS: BP 156/104; TEMP 97.8; O2SAT 96
[2024-04-10 12:00] VITALS: BP 147/97; TEMP 98.1; O2SAT 100
[2024-04-10 16:00] VITALS: BP 158/102; TEMP 97.9; O2SAT 94
[2024-04-10] MEDS ORDERED: METO5TAB2 GT (17:08)
[2024-04-10] MEDS ORDERED: [UNRECOGNIZED DRUG - CODE] GT (17:08)
[2024-04-10 20:00] VITALS: BP 148/98; TEMP 97.9; O2SAT 96
[2024-04-10 21:11] VITALS: O2SAT 98
[2024-04-11] VITALS (7 sets, daily range): BP systolic 146–166; BP diastolic 88–108; TEMP 97.5–99.1; O2SAT 94–98
[2024-04-12 00:12] VITALS: BP 143/101; TEMP 98.4; O2SAT 96
[2024-04-12 04:50] VITALS: BP 156/85; TEMP 98.8; O2SAT 96
[2024-04-12 08:00] VITALS: BP 136/95; TEMP 97.5; O2SAT 95
[2024-04-12 09:23] VITALS: BP 127/91
[2024-04-12] MEDS: amLODIPine 5 MG TAB GT SCH (09:23)
[2024-04-12 12:00] VITALS: BP 145/93; TEMP 98.2; O2SAT 98
== END 2024-04-12 16:59 | disposition home or self-care (01) | DRG 871 ==
LOC: M ED 17:44 → M ED INP 17:45 → M MSPAV 03-31 18:22 → OBSVTOIN 04-01 10:23
PROVIDERS: ADMIT Family Medicine; ATTEND Internal Medicine
DX: A41.59 Other Gram-negative sepsis (principal); J69.0 Pneumonitis due to inhalation of food and vomit; N39.0 Urinary tract infection, site not specified; I50.30 Unspecified diastolic (congestive) heart failure; F72 Severe intellectual disabilities; I69.352 Hemiplegia and hemiparesis following cerebral infarction affecting left dominant side; G40.909 Epilepsy, unspecified, not intractable, without status epilepticus; B96.4 Proteus (mirabilis) (morganii) as the cause of diseases classified elsewhere; I11.0 Hypertensive heart disease with heart failure; E78.5 Hyperlipidemia, unspecified; R13.12 Dysphagia, oropharyngeal phase; D50.9 Iron deficiency anemia, unspecified; M81.0 Age-related osteoporosis without current pathological fracture; G80.9 Cerebral palsy, unspecified; Z93.1 Gastrostomy status; Z79.899 Other long term (current) drug therapy; Z79.82 Long term (current) use of aspirin

== ENCOUNTER → 2024-04-30 | Outpatient (CLI) | payer MEDICARE, MEDICAID ==
[~2024-04-30] MED LIST changes: +AMLO25TA GT; +ASPI81CH33 GT; +BISA10SU27 PR; +CALC1TAB63 GT; +LEVE15SO2 GT; +METO5TAB2 GT; +MONT10TA97 GT; +MULT400T10 GT; +PHEN20EL19 GT; +POLY510P14 GT; +PREV30TA3 GT; +SENN-186 GT; +TRIA1CR80 TOP; +VITA100066 GT; +[UNRECOGNIZED DRUG - CODE] GT
[2024-04-30 10:43] LABS: BASO % 0.3 % (0.0-1.0); EOS # 0.1 10^3/uL (0.0-0.5); EOS % 0.8 % (0.0-3.0); HEMATOCRIT 42.9 % (42.0-52.0); HEMOGLOBIN 13.6 g/dl (13.5-17.5); LYMPH # 1.8 10^3/uL (1.5-5.0); MEAN CORPUSCULAR HEMOGLOBIN 31.1 pg (27.0-33.0); MEAN CORPUSCULAR HGB CONC 31.7 g/dl (32.0-36.5); MEAN CORPUSCULAR VOLUME 97.9 fl (80.0-96.0); MONO # 1.3 10^3/uL (0.0-0.8); MONO % 13.7 % (2.0-8.0); NEUTROPHILS # 6.5 10^3/uL (1.5-8.5); NEUTROPHILS % 66.8 % (36.0-66.0); PLATELET COUNT, AUTOMATED 335 10^3/uL (150-450); RED BLOOD COUNT 4.38 10^6/uL (4.30-6.10); WHITE BLOOD COUNT 9.8 10^3/uL (4.0-10.0)
[2024-04-30 11:12] LABS: PHENOBARBITAL LEVEL 13.2 UG/ML (15.0-40.0); PHENYTOIN (DILANTIN) 8.4 UG/ML (10.0-20.0)
[2024-04-30 11:16] LABS: ALBUMIN 3.6 G/DL (3.2-5.2); ALKALINE PHOSPHATASE 171 U/L (40-129); ALT/SGPT 24 U/L (7.0-40); AST/SGOT 13 U/L (<34); BILIRUBIN,TOTAL 0.3 MG/DL (0.3-1.2); BLOOD UREA NITROGEN 16 MG/DL (9-23); CALCIUM LEVEL 9.1 MG/DL (8.3-10.6); CARBON DIOXIDE LEVEL 28 MMOL/L (20-31); CHLORIDE LEVEL 102 MMOL/L (98-107); CREATININE FOR GFR 0.38 MG/DL (0.70-1.30); GLOMERULAR FILTRATION RATE > 60.0 (>49); GLUCOSE, FASTING 98 MG/DL (74-106); POTASSIUM SERUM 3.9 MMOL/L (3.5-5.1); SODIUM LEVEL 141 MMOL/L (136-145); TOTAL PROTEIN 8.3 G/DL (5.7-8.2)
== END ==
LOC: M LAB 09:37
PROVIDERS: ATTEND Psychiatry & Neurology Neurology
DX: R56.9 Unspecified convulsions (principal)

== ENCOUNTER → 2024-04-30 | Outpatient (CLI) | payer MEDICARE, MEDICAID ==
[2024-04-30 10:44] LABS: BASO # 0.1 10^3/uL (0.0-0.2); BASO % 0.5 % (0.0-1.0); EOS # 0.1 10^3/uL (0.0-0.5); EOS % 0.6 % (0.0-3.0); HEMATOCRIT 44.1 % (42.0-52.0); HEMOGLOBIN 14.1 g/dl (13.5-17.5); LYMPH # 1.8 10^3/uL (1.5-5.0); LYMPH % 18.5 % (24.0-44.0); MEAN CORPUSCULAR HEMOGLOBIN 31.5 pg (27.0-33.0); MEAN CORPUSCULAR VOLUME 98.4 fl (80.0-96.0); MONO # 1.2 10^3/uL (0.0-0.8); MONO % 12.4 % (2.0-8.0); NEUTROPHILS # 6.7 10^3/uL (1.5-8.5); NEUTROPHILS % 67.5 % (36.0-66.0); PLATELET COUNT, AUTOMATED 268 10^3/uL (150-450); RED BLOOD COUNT 4.48 10^6/uL (4.30-6.10); WHITE BLOOD COUNT 9.9 10^3/uL (4.0-10.0)
[2024-04-30 11:13] LABS: PHENOBARBITAL LEVEL 13.2 UG/ML (15.0-40.0); PHENYTOIN (DILANTIN) 7.6 UG/ML (10.0-20.0)
[2024-04-30 11:14] LABS: IRON (FE) 66 UG/DL (65-175)
[2024-04-30 11:15] LABS: ALBUMIN 3.5 G/DL (3.2-5.2); ALKALINE PHOSPHATASE 171 U/L (40-129); ALT/SGPT 24 U/L (7.0-40); AST/SGOT 11 U/L (<34); BILIRUBIN,TOTAL 0.3 MG/DL (0.3-1.2); BLOOD UREA NITROGEN 16 MG/DL (9-23); CALCIUM LEVEL 9.3 MG/DL (8.3-10.6); CARBON DIOXIDE LEVEL 29 MMOL/L (20-31); CHLORIDE LEVEL 102 MMOL/L (98-107); CREATININE FOR GFR 0.41 MG/DL (0.70-1.30); GLOMERULAR FILTRATION RATE > 60.0 (>49); GLUCOSE, FASTING 99 MG/DL (74-106); MAGNESIUM LEVEL 2.1 MG/DL (1.8-2.4); PERCENT SATURATION 20.9 % (19.7-50.0); POTASSIUM SERUM 4.2 MMOL/L (3.5-5.1); SODIUM LEVEL 142 MMOL/L (136-145); TOTAL IRON BINDING CAPACITY 316 UG/DL (250-425); TOTAL PROTEIN 8.3 G/DL (5.7-8.2)
[2024-04-30 11:16] LABS: PTH INTACT 33.2 PG/ML (18.5-88.0)
[2024-04-30 11:17] LABS: FERRITIN 26.4 NG/ML (10.5-307.3); TOTAL 25(OH) VITAMIN D 53.7 NG/ML (20.0-100.0)
== END ==
LOC: M LAB 09:42
PROVIDERS: ATTEND Family Medicine
DX: D50.9 Iron deficiency anemia, unspecified (principal); G40.909 Epilepsy, unspecified, not intractable, without status epilepticus; Z78.9 Other specified health status; E55.9 Vitamin D deficiency, unspecified; I50.32 Chronic diastolic (congestive) heart failure

== ENCOUNTER → 2024-05-06 | Outpatient (CLI) | payer MEDICARE, MEDICAID ==
[2024-05-06] MEDS: ZOLEDRONIC ACID 5 MG in IV 1 EA IV ONE (13:48)
[2024-05-06 14:30] VITALS: BP 136/70; O2SAT 98
== END ==
LOC: M INFU 13:22
PROVIDERS: ATTEND Family Medicine
DX: M81.0 Age-related osteoporosis without current pathological fracture (principal)
CPT/HCPCS: 96365; J3489

== ENCOUNTER 2024-05-17 12:03 | Emergency (ER) | payer MEDICARE, MEDICAID ==
[2024-05-17 12:20] VITALS: BP 168/90; TEMP 98.4; O2SAT 93
[2024-05-17] MEDS: GASTROGRAFIN SOLUTION 30ML PO ONE (17:41)
== END 2024-05-17 20:59 | disposition home or self-care (01) ==
LOC: M ED 12:03
DX: K94.23 Gastrostomy malfunction (principal); G80.9 Cerebral palsy, unspecified; F79 Unspecified intellectual disabilities; K21.9 Gastro-esophageal reflux disease without esophagitis; I10 Essential (primary) hypertension; Z86.79 Personal history of other diseases of the circulatory system; Z79.82 Long term (current) use of aspirin; Z79.899 Other long term (current) drug therapy
CPT/HCPCS: 74018; 99283; Q9963

== ENCOUNTER → 2024-06-24 | Outpatient (CLI) | payer MEDICARE, MEDICAID ==
[2024-06-24 15:03] LABS: BASO % 0.4 % (0.0-1.0); EOS # 0.4 10^3/uL (0.0-0.5); EOS % 3.8 % (0.0-3.0); HEMATOCRIT 44.3 % (42.0-52.0); HEMOGLOBIN 14.3 g/dl (13.5-17.5); LYMPH # 2.1 10^3/uL (1.5-5.0); LYMPH % 22.5 % (24.0-44.0); MEAN CORPUSCULAR HEMOGLOBIN 30.5 pg (27.0-33.0); MEAN CORPUSCULAR HGB CONC 32.3 g/dl (32.0-36.5); MEAN CORPUSCULAR VOLUME 94.5 fl (80.0-96.0); MONO # 1.9 10^3/uL (0.0-0.8); NEUTROPHILS # 5.1 10^3/uL (1.5-8.5); PLATELET COUNT, AUTOMATED 201 10^3/uL (150-450); RED BLOOD COUNT 4.69 10^6/uL (4.30-6.10); WHITE BLOOD COUNT 9.5 10^3/uL (4.0-10.0)
[2024-06-24 15:08] LABS: PSA SCREENING 1.05 NG/ML (< 4.00)
[2024-06-24 15:09] LABS: PHENOBARBITAL LEVEL 14.5 UG/ML (15.0-40.0); PHENYTOIN (DILANTIN) 10.2 UG/ML (10.0-20.0)
[2024-06-24 15:10] LABS: ALBUMIN 3.8 G/DL (3.2-5.2); ALKALINE PHOSPHATASE 186 U/L (40-129); ALT/SGPT 21 U/L (7.0-40); AST/SGOT 15 U/L (<34); BILIRUBIN,TOTAL < 0.2 MG/DL (0.3-1.2); BLOOD UREA NITROGEN 15 MG/DL (9-23); CARBON DIOXIDE LEVEL 26 MMOL/L (20-31); CHLORIDE LEVEL 102 MMOL/L (98-107); CHOLESTEROL LEVEL 139 MG/DL (<200); CHOLESTEROL RISK RATIO 2.79 (<5); CREATININE FOR GFR 0.37 MG/DL (0.70-1.30); GLOMERULAR FILTRATION RATE > 90.0 (>49); GLUCOSE, FASTING 100 MG/DL (74-106); HDL CHOLESTEROL 49.7 MG/DL (>40); LDL CHOLESTEROL 76.7 MG/DL (<100); NON-HDL-C 89.3 MG/DL; POTASSIUM SERUM 4.3 MMOL/L (3.5-5.1); SODIUM LEVEL 140 MMOL/L (136-145); TOTAL PROTEIN 8.6 G/DL (5.7-8.2); TRIGLYCERIDES LEVEL 63 MG/DL (<150)
[2024-06-24 15:11] LABS: PTH INTACT 41.1 PG/ML (18.5-88.0)
[2024-06-24 15:12] LABS: FERRITIN 17.4 NG/ML (10.5-307.3); TOTAL 25(OH) VITAMIN D 54.6 NG/ML (20.0-100.0); VITAMIN B12 LEVEL 701 PG/ML (211-911)
[2024-06-24 19:14] LABS: HEMATOCRIT 44.3 % (42.0-52.0)
== END ==
LOC: M WUC 09:20
PROVIDERS: ATTEND Family Medicine
DX: E55.9 Vitamin D deficiency, unspecified (principal); D50.9 Iron deficiency anemia, unspecified; I50.32 Chronic diastolic (congestive) heart failure; Z12.5 Encounter for screening for malignant neoplasm of prostate; G40.909 Epilepsy, unspecified, not intractable, without status epilepticus; Z78.9 Other specified health status; E78.00 Pure hypercholesterolemia, unspecified
CPT/HCPCS: 36415; 80053; 80061; 80177; 80184; 80185; 82306; 82607; 82728; 82747; 83735; 83880; 83970; 85025; G0103

== ENCOUNTER 2024-09-21 11:41 | Outpatient (CLI) | payer MEDICARE, MEDICAID ==
[~2024-09-21 11:41] MED LIST changes: +ACET1TAB55 GT; +ALBUTEROL SULFATE 2.5 MG/0.5 ML INH CONCENTRATE NEB SOLN INH PRN; +EPINEPHrine INJ 1 MG/ML 1ML AMP IM PRN; +IBUP100S10 GT; +MILKSUS3 GT; +ONDA4SOL GT; +PHEN50TA3 GT; +SENN-225 PEG; -SENO8.6T5 PEG; +diphenhydrAMINE 50 MG/ML VIAL IV PRN
[2024-09-21] MEDS: FERRIC CARBOXYMALTOSE 750 MG (VIAL MATE) IN 100ML NS IV ONE (12:02)
[2024-09-21 12:40] VITALS: O2SAT 99
== END 2024-09-21 12:40 | disposition home or self-care (01) ==
LOC: M INFU 11:41
PROVIDERS: ATTEND Family Medicine
DX: D50.9 Iron deficiency anemia, unspecified (principal)
CPT/HCPCS: 96365; J1439

== ENCOUNTER 2024-10-26 06:46 | Emergency (ER) | payer MEDICARE, MEDICAID ==
[~2024-10-26] VITALS: Ht 144.8 cm; Wt 70.2 kg
[~2024-10-26 06:46] MED LIST changes: -ALBUTEROL SULFATE 2.5 MG/0.5 ML INH CONCENTRATE NEB SOLN INH PRN; -EPINEPHrine INJ 1 MG/ML 1ML AMP IM PRN; -diphenhydrAMINE 50 MG/ML VIAL IV PRN
[2024-10-26 08:07] LABS: VENOUS BASE EXCESS 2.1 (-2.0-2.0); VENOUS HCO3 30.2 MMOL/L (23.0-27.0); VENOUS O2 SATURATION 65.5 % (60.0-80.0); VENOUS PARTIAL PRESSURE CO2 61.1 mmHg (38.0-50.0); VENOUS PARTIAL PRESSURE O2 33.9 mmHg (30.0-50.0); VENOUS PH 7.312 UNITS (7.330-7.430); VENOUS STANDARD HCO3 25.4 MMOL/L; VENOUS TOTAL CO2 32.1 MMOL/L (24.0-28.0)
[2024-10-26 08:08] LABS: BASO # 0.0 10^3/uL (0.0-0.2); BASO % 0.3 % (0.0-1.0); EOS # 0.1 10^3/uL (0.0-0.5); EOS % 1.4 % (0.0-3.0); LYMPH # 1.7 10^3/uL (1.5-5.0); LYMPH % 25.6 % (24.0-44.0); MONO # 1.0 10^3/uL (0.0-0.8); MONO % 15.6 % (2.0-8.0); NEUTROPHILS # 3.8 10^3/uL (1.5-8.5); NEUTROPHILS % 56.9 % (36.0-66.0); PLATELET COUNT, AUTOMATED 245 10^3/uL (150-450)
[2024-10-26 08:20] LABS: INR 0.94
[2024-10-26 08:51] LABS: CK-MB VALUE MASS 1.0 NG/ML (<3.6)
[2024-10-26 08:54] LABS: ALT/SGPT 34 U/L (7.0-40); AST/SGOT 19 U/L (<34); CALCIUM LEVEL 8.9 MG/DL (8.3-10.6); CARBON DIOXIDE LEVEL 30 MMOL/L (20-31); CHLORIDE LEVEL 99 MMOL/L (98-107); CREATININE FOR GFR 0.50 MG/DL (0.70-1.30); GLOMERULAR FILTRATION RATE > 90.0 (>49); POTASSIUM SERUM 4.5 MMOL/L (3.5-5.1); SODIUM LEVEL 139 MMOL/L (136-145)
[2024-10-26 09:05] LABS: CPK CREATINE PHOSPHOKINASE 52 U/L (46-171); MB/CK RELATIVE INDEX 1.92 (< OR =4)
[2024-10-26 09:15] VITALS: O2SAT 98
[2024-10-26] MEDS ORDERED: ISOVUE-370 76% 100 ML VIAL As Ordered ONE (09:36)
[2024-10-26] MEDS ORDERED: METO5TAB2 GT (09:43)
[2024-10-26 09:44] LABS: KETONE, URINE AUTO RFX NEGATIVE (NEGATIVE); LEUKOCYTE ESTERASE UR AUTO RFX NEGATIVE (NEGATIVE); NITRITE, URINE AUTO RFX NEGATIVE (NEGATIVE); RBC, URINE AUTO RFX 0 /HPF (0-3); SQUAM EPITHELIAL CELL UR AURFX 0 /HPF (0-6); WBC, URINE AUTO RFX 1 /HPF (0-3)
[2024-10-26 09:46] LABS: CK-MB VALUE MASS < 1.0 NG/ML (<3.6)
[2024-10-26 09:47] LABS: CPK CREATINE PHOSPHOKINASE 46 U/L (46-171)
[2024-10-26 09:50] LABS: PHENOBARBITAL LEVEL 17.2 UG/ML (15.0-40.0)
[2024-10-26] MEDS ORDERED: PHEN32.44 GT (10:14)
[2024-10-26] MEDS ORDERED: HOME MED LIST COMPLETE! XX SCH (10:15)
[2024-10-26 13:00] VITALS: BP 153/82; TEMP 98.1
== END 2024-10-26 13:26 | disposition home or self-care (01) ==
LOC: M ED 06:46
DX: R41.82 Altered mental status, unspecified (principal); R06.02 Shortness of breath; G80.9 Cerebral palsy, unspecified; I10 Essential (primary) hypertension; K21.9 Gastro-esophageal reflux disease without esophagitis; F73 Profound intellectual disabilities; K76.0 Fatty (change of) liver, not elsewhere classified; K57.30 Diverticulosis of large intestine without perforation or abscess without bleeding; K59.00 Constipation, unspecified; Z93.1 Gastrostomy status; Z86.16 Personal history of COVID-19; Z79.1 Long term (current) use of non-steroidal anti-inflammatories (NSAID); Z79.85 Long-term (current) use of injectable non-insulin antidiabetic drugs; Z79.83 Long term (current) use of bisphosphonates; Z79.899 Other long term (current) drug therapy
CPT/HCPCS: 36415; 70450; 71045; 71275; 74177; 80048; 80076; 80177; 80184; 80185; 81001; 82550; 82553; 82803; 83605; 84145; 84443; 84484; 85025; 85610; 87040; 87486; 87581; 87633; 87798; 93005; 93041; 94760; 99285; Q9967

== ENCOUNTER → 2024-10-27 | Outpatient (CLI) | payer MEDICARE, MEDICAID ==
[~2024-10-27] MED LIST changes: +PHEN32.44 GT
[2024-10-27 11:44] LABS: BASO # 0.0 10^3/uL (0.0-0.2); BASO % 0.3 % (0.0-1.0); EOS # 0.1 10^3/uL (0.0-0.5); EOS % 1.0 % (0.0-3.0); LYMPH # 1.7 10^3/uL (1.5-5.0); LYMPH % 23.3 % (24.0-44.0); MONO # 1.1 10^3/uL (0.0-0.8); MONO % 15.6 % (2.0-8.0); NEUTROPHILS # 4.3 10^3/uL (1.5-8.5); NEUTROPHILS % 59.5 % (36.0-66.0); PLATELET COUNT, AUTOMATED 243 10^3/uL (150-450)
[2024-10-27 13:07] LABS: PHENOBARBITAL LEVEL 16.1 UG/ML (15.0-40.0)
[2024-10-27 13:10] LABS: ALT/SGPT 32 U/L (7.0-40); AST/SGOT 16 U/L (<34); CALCIUM LEVEL 9.3 MG/DL (8.3-10.6); CARBON DIOXIDE LEVEL 29 MMOL/L (20-31); CHLORIDE LEVEL 99 MMOL/L (98-107); CREATININE FOR GFR 0.47 MG/DL (0.70-1.30); GLOMERULAR FILTRATION RATE > 90.0 (>49); POTASSIUM SERUM 4.6 MMOL/L (3.5-5.1); SODIUM LEVEL 141 MMOL/L (136-145)
== END ==
LOC: M PLALAB 09:11
PROVIDERS: ATTEND Psychiatry & Neurology Neurology
DX: R56.9 Unspecified convulsions (principal)

== ENCOUNTER → 2024-10-27 | Outpatient (CLI) | payer MEDICARE, MEDICAID ==
[2024-10-27 11:44] LABS: BASO # 0.0 10^3/uL (0.0-0.2); BASO % 0.3 % (0.0-1.0); EOS # 0.1 10^3/uL (0.0-0.5); EOS % 0.9 % (0.0-3.0); LYMPH # 1.8 10^3/uL (1.5-5.0); LYMPH % 23.7 % (24.0-44.0); MONO # 1.2 10^3/uL (0.0-0.8); MONO % 15.5 % (2.0-8.0); NEUTROPHILS # 4.4 10^3/uL (1.5-8.5); NEUTROPHILS % 59.5 % (36.0-66.0); PLATELET COUNT, AUTOMATED 255 10^3/uL (150-450)
[2024-10-27 13:07] LABS: PHENOBARBITAL LEVEL 16.0 UG/ML (15.0-40.0)
[2024-10-27 13:10] LABS: ALT/SGPT 32 U/L (7.0-40); AST/SGOT 14 U/L (<34); CALCIUM LEVEL 9.1 MG/DL (8.3-10.6); CARBON DIOXIDE LEVEL 28 MMOL/L (20-31); CHLORIDE LEVEL 100 MMOL/L (98-107); CHOLESTEROL LEVEL 137 MG/DL (<200); CHOLESTEROL RISK RATIO 3.08 (<5); CREATININE FOR GFR 0.45 MG/DL (0.70-1.30); GLOMERULAR FILTRATION RATE > 90.0 (>49); LDL CHOLESTEROL 71.6 MG/DL (<100); MAGNESIUM LEVEL 2.3 MG/DL (1.8-2.4); NON-HDL-C 92.6 MG/DL; POTASSIUM SERUM 4.7 MMOL/L (3.5-5.1); PSA SCREENING 1.31 NG/ML (< 4.00); SODIUM LEVEL 141 MMOL/L (136-145); TRIGLYCERIDES LEVEL 105 MG/DL (<150)
== END ==
LOC: M PLALAB 09:07
PROVIDERS: ATTEND Family Medicine
DX: E55.9 Vitamin D deficiency, unspecified (principal); D50.9 Iron deficiency anemia, unspecified; G43.909 Migraine, unspecified, not intractable, without status migrainosus; E78.00 Pure hypercholesterolemia, unspecified; Z78.9 Other specified health status; Z12.5 Encounter for screening for malignant neoplasm of prostate; I50.32 Chronic diastolic (congestive) heart failure
CPT/HCPCS: 36415; 80053; 80061; 80177; 80184; 80185; 82728; 83735; 83880; 84238; 85025; G0103

== ENCOUNTER 2024-11-20 07:07 | Emergency (ER) | payer MEDICARE, MEDICAID ==
[2024-11-20 07:55] LABS: BASO # 0.1 10^3/uL (0.0-0.2); BASO % 0.5 % (0.0-1.0); EOS # 0.1 10^3/uL (0.0-0.5); EOS % 1.5 % (0.0-3.0); LYMPH # 2.6 10^3/uL (1.5-5.0); LYMPH % 28.2 % (24.0-44.0); MONO # 1.3 10^3/uL (0.0-0.8); MONO % 14.1 % (2.0-8.0); NEUTROPHILS # 5.1 10^3/uL (1.5-8.5); NEUTROPHILS % 55.3 % (36.0-66.0); PLATELET COUNT, AUTOMATED 391 10^3/uL (150-450)
[2024-11-20 08:08] LABS: PHENOBARBITAL LEVEL 19.4 UG/ML (15.0-40.0)
[2024-11-20 08:10] LABS: ALT/SGPT 46 U/L (7.0-40); AST/SGOT 71 U/L (<34); CALCIUM LEVEL 8.6 MG/DL (8.3-10.6); CARBON DIOXIDE LEVEL 27 MMOL/L (20-31); CHLORIDE LEVEL 102 MMOL/L (98-107); CREATININE FOR GFR 0.41 MG/DL (0.70-1.30); GLOMERULAR FILTRATION RATE > 90.0 (>49); POTASSIUM SERUM 6.2 MMOL/L (3.5-5.1); SODIUM LEVEL 138 MMOL/L (136-145)
[2024-11-20] MEDS ORDERED: amLODIPine 5 MG TAB PEG ONE (08:15)
[2024-11-20] MEDS ORDERED: SENNA 8.6 MG TAB PO ONE (08:35)
[2024-11-20] MEDS ORDERED: MULTIVITAMINS/MINERALS THERAP 1 TAB PO ONE (08:35)
[2024-11-20] MEDS ORDERED: MIRALAX *UNIT DOSE* 17 GM PACKET PEG ONE (09:00)
[2024-11-20] MEDS ORDERED: CALCIUM/VITAMIN D 500 MG TAB PO ONE (10:00)
[2024-11-20] MEDS: ASPIRIN 81 MG CHEWABLE TABLET PO ONE (10:04)
[2024-11-20 10:05] VITALS: BP 173/114
[2024-11-20] MEDS: MONTELUKAST 10 MG TAB PEG SCH (10:05)
[2024-11-20] MEDS: PHENYTOIN 125MG/5ML SUSP ORAL SYRINGE *DRAW UP EXACT DOSE PEG ONE (10:06)
[2024-11-20 10:30] VITALS: TEMP 96.4
[2024-11-20 11:00] VITALS: BP 173/91; O2SAT 98
== END 2024-11-20 11:10 | disposition home or self-care (01) ==
LOC: M ED 07:07
DX: G40.909 Epilepsy, unspecified, not intractable, without status epilepticus (principal); I10 Essential (primary) hypertension; F79 Unspecified intellectual disabilities; Z86.79 Personal history of other diseases of the circulatory system; Z93.1 Gastrostomy status; Z79.899 Other long term (current) drug therapy; Z79.1 Long term (current) use of non-steroidal anti-inflammatories (NSAID); Z79.82 Long term (current) use of aspirin

== ENCOUNTER 2024-12-16 22:16 | Emergency (ER) | payer MEDICARE, MEDICAID ==
[2024-12-17 10:57] VITALS: BP 154/104; TEMP 98.5; O2SAT 99
== END 2024-12-17 11:08 | disposition home or self-care (01) ==
LOC: M ED 22:16
DX: K94.23 Gastrostomy malfunction (principal); Z79.1 Long term (current) use of non-steroidal anti-inflammatories (NSAID); Z79.899 Other long term (current) drug therapy; Z79.82 Long term (current) use of aspirin

== ENCOUNTER → 2025-02-13 | Outpatient (CLI) | payer MEDICARE, MEDICAID ==
[2025-02-13 14:08] LABS: BASO # 0.0 10^3/uL (0.0-0.2); BASO % 0.2 % (0.0-1.0); EOS # 0.0 10^3/uL (0.0-0.5); EOS % 0.1 % (0.0-3.0); LYMPH # 2.5 10^3/uL (1.5-5.0); LYMPH % 13.1 % (24.0-44.0); MONO % 13.7 % (2.0-8.0); NEUTROPHILS # 13.7 10^3/uL (1.5-8.5); NEUTROPHILS % 72.5 % (36.0-66.0); PLATELET COUNT, AUTOMATED 308 10^3/uL (150-450)
[2025-02-13 14:12] LABS: MONO # 2.6 10^3/uL (0.0-0.8)
[2025-02-13 14:28] LABS: ALT/SGPT 30 U/L (7.0-40); AST/SGOT 13 U/L (<34); CALCIUM LEVEL 9.3 MG/DL (8.3-10.6); CARBON DIOXIDE LEVEL 26 MMOL/L (20-31); CHLORIDE LEVEL 100 MMOL/L (98-107); CREATININE FOR GFR 0.50 MG/DL (0.70-1.30); GLOMERULAR FILTRATION RATE > 90.0 (>49); MAGNESIUM LEVEL 2.1 MG/DL (1.8-2.4); POTASSIUM SERUM 4.3 MMOL/L (3.5-5.1); PTH INTACT 29.6 PG/ML (18.5-88.0); SODIUM LEVEL 138 MMOL/L (136-145)
[2025-02-13 14:29] LABS: TOTAL 25(OH) VITAMIN D 60.9 NG/ML (20.0-100.0)
[2025-02-13 14:30] LABS: PHENOBARBITAL LEVEL 15.3 UG/ML (15.0-40.0)
== END ==
LOC: M PLALAB 10:03
PROVIDERS: ATTEND Family Medicine
DX: G40.909 Epilepsy, unspecified, not intractable, without status epilepticus (principal); E55.9 Vitamin D deficiency, unspecified; D50.9 Iron deficiency anemia, unspecified; Z78.9 Other specified health status; I50.32 Chronic diastolic (congestive) heart failure